=== PATIENT | male | born 1950 | race Caucasian/White ===

== ENCOUNTER 2024-12-18 10:27 | Outpatient (AMB) | payer BC, SELFPAY ==
--- OUTSIDE RECORDS SUMMARY | 2024-12-18 10:48 | XMS_ITS | Encounter Summary ---
Author Organization [facility] Address [address] [place] [address] Phone Care Team Providers Care Procurement Professional Name Role Phone Joe Delaney MD Primary Care Provider [phone] Twan Davis MD Unavailable [phone] Wan Rodríguez Unavailable [phone] Rozina Petersen MD Unavailable Encounter Details Date Type Department Care Team Description 12/17/2019 Email from [facility] Otolaryngology [address] [place] [address] Kyler Gr MD [address] [place], [place] [id number] Social History Tobacco Use Types Packs/Day Years Used Date Smoking Tobacco: Never Smokeless Tobacco: Never Alcohol Use Standard Drinks/Week Comments Not Currently 0 (1 standard drink = 0.6 oz pur e alcohol) social Sex Assigned at Date Recorded Male 03/28/2020 2:09 AM E DT Job Start Date Occupation Industry Not on file Not on file Not on file documented as of this encounter Plan of Treatment Upcoming Encounters Date Type Specialty Care Team Description 01/25/2025 Office Visit Internal Medicine Joe Delaney MD [address] [place], [place] [phone] 02/03/2025 Office Visit Pain Medicine Patricia Sotelo PA [address] [place], [place] [phone] documented as of this encounter Visit Diagnoses Not on filedocumented in this encounter Additional Health Concerns Infection Onset Date Last Indicated Resolved Time COVID-19 Rule Out Comment:04/29/2020 Negative (PAT) 02/20/2020 COVID19 NEGATIVE (PAT) 02/23/2020 02/23/2020 02/23/2020 10:42 AM EDT documented as of this encounter Care Teams Procurement Professional Relationship Specialty Start Date End Date Joe Delaney MD [address] [place] [address] [phone] PCP - General Internal Medicine 11/17/18 [place] [address] [place] [address] Referring Physician Internal Medicine 11/17/18 Wan Rodríguez [facility] Vlad Katz [facility] Urology [place] [id number] 06/02/19 Rozina Petersen MD Gastroenterology 03/30/20 documented as of this encounter
--- OUTSIDE RECORDS SUMMARY | 2024-12-18 10:48 | XMS_ITS | Encounter Summary ---
Author Organization [facility] Address [address] [place] [address] Phone Care Team Providers Care Chef Assistant Name Role Phone Joe Delaney MD Primary Care Provider [phone] Twan Davis MD Unavailable [phone] Wan Rodríguez Unavailable [phone] Rozina Petersen MD Unavailable Encounter Details Date Type Department Care Team Description 11/12/2022 Email from [facility] [address] [place] [phone] Patricia Sotelo PA [address] [place] [address] Social History Tobacco Use Types Packs/Day Years Used Date Smoking Tobacco: Never Smokeless Tobacco: Never Alcohol Use Standard Drinks/Week Comments Not Currently 0 (1 standard drink = 0.6 oz pur e alcohol) social Sex Assigned at Date Recorded Male 03/28/2020 2:09 AM E DT Job Start Date Occupation Industry Not on file Not on file Not on file COVID-19 Exposure Response Date Recorded In the last 10 days, have yo u been in contact with someone who was confirmed or suspected to have Coronavirus/COVID-19? No / Unsure 11/15/2022 10:49 AM EDT documented as of this encounter Plan of Treatment Upcoming Encounters Date Type Specialty Care Team Description 01/25/2025 Office Visit [place] [address] [place] [address] 02/03/2025 Office Visit Pain Medicine Patricia Sotelo PA [address] [place] [address] documented as of this encounter Visit Diagnoses Not on filedocumented in this encounter Care Teams Chef Assistant Relationship Specialty Start Date End Date Joe Delaney MD [address] [place] [address] PCP - General Internal Medicine 11/17/18 Twan Davis MD [address] [place] [address] Referring Physician Internal Medicine 11/17/18 Wan Rodríguez [facility] [place] [address] 06/02/19 Rozina Petersen MD Gastroenterology 03/30/20 documented as of this encounter
--- OUTSIDE RECORDS SUMMARY | 2024-12-18 10:48 | XMS_ITS | Encounter Summary ---
Author Organization [facility] Address [address] [place] [address] Phone Care Team Providers Care Loom Stop Checker Name Role Phone Joe Delaney MD Primary Care Provider [phone] Twan Davis MD Unavailable [phone] Wan Rodríguez Unavailable [phone] Rozina Petersen MD Unavailable Encounter Details Date Type Department Care Team Description 12/10/2019 Orders Only Internal Medicine [address] [place] [phone] Joe Delaney MD [address] [place] [address] [phone] Arthralgia, unspecified joint; Tick bite, sequela Social History Tobacco Use Types Packs/Day Years [...] Office Visit Internal Medicine Joe Delaney MD [address] [place] [address] [phone] 02/03/2025 Office Visit [place] [address] [place] [address] documented as of this encounter Procedures Procedure Name Priority Date/Time Associated Diagnosis Comments LYME DISEASE PCR Routine 12/10/2019 2:13 PM EDT Arthralgia, unspecified joint Tick bite, sequela documented in this encounter Results * Lyme disease, PCR (12/10/2019 2:13 PM EDT) Lyme Disease (B.burgdorferi) PCR Negative Negative [facility] Comment: No B. burgdorferi DNA Detected. A negative PCR result for Borrelia burgdorferi on a blood sample does not eliminate the possibility of Lyme disease. CDC recommends that two-tiered serological testing in conjunction with clinical evaluation be used as the primary method of diagnosis. This test was developed and its performance characteristics determined by [facility]. ??It has not been cleared or approved by the Food and Drug Administration. ??The FDA has determined that such clearance or approval is not necessary. Blood 12/10/2019 2:13 PM EDT 12/10/2019 2:14 PM EDT Narrative [facility] - 12/16/2019 6:12 AM EDT Testing performed at: [BN] [address], [id number], , [employer]:Dawson Galindo MD Joe Delaney MD LAB BLOOD ORDERABLES [facility] documented in this encounter Visit Diagnoses Diagnosis Arthralgia, unspecified joint Tick bite, sequela documented in this encounter Additional Health Concerns Infection Onset Date Last Indicated Resolved Time COVID-19 Rule Out Comment:04/29/2020 Negative (PAT) 02/20/2020 COVID19 NEGATIVE (PAT) 02/23/2020 02/23/2020 02/23/2020 10:42 AM EDT documented as of this encounter Care Teams Loom Stop Checker Relationship Specialty Start Date End Date Joe Delaney MD [address] [place] [address] PCP - General Internal Medicine 4/15/19 Twan Davis MD [address] [place] [address] Referring Physician Internal Medicine 11/17/18 Wan Rodríguez [facility] [place] [address] 06/02/19 Rozina Petersen MD Gastroenterology 03/30/20 documented as of this encounter
--- OUTSIDE RECORDS SUMMARY | 2024-12-18 10:48 | XMS_ITS | Encounter Summary ---
Author Organization [facility] Address [address] [place] [address] Phone Care Team Providers Care Sock Knitting Machine Operator Name Role Phone Joe Delaney MD Primary Care Provider [phone] Twan Davis MD Unavailable [phone] Wan Rodríguez Unavailable Rozina Petersen MD Unavailable Encounter Details Date Type Department Care Team Description 12/21/2019 Email from [facility] Internal Medicine [address] [place] [phone] [place] [address] [place] [address] [phone] Social History Tobacco Use Types Packs/Day Years [...] Visit Internal Medicine Joe Delaney MD [address] [place], [place] [phone] 02/03/2025 Office Visit Pain Medicine Patricia Sotelo PA [address] [place], [place] [phone] documented as of this encounter Visit Diagnoses Not on filedocumented in this encounter Additional Health Concerns Infection Onset Date Last Indicated Resolved Time COVID-19 Rule Out Comment:04/29/2020 Negative (PAT) 02/20/2020 COVID19 NEGATIVE (PAT) 02/23/2020 02/23/2020 02/23/2020 10:42 AM EDT documented as of this encounter Care Teams Sock Knitting Machine Operator Relationship Specialty Start Date End Date Joe Delaney MD [address] [place] [address] PCP - General Internal Medicine 11/17/18 Twan Davis MD [address] [place] [address] Referring Physician Internal Medicine 11/17/18 Wna Rodríguez [facility] Vlad Katz [facility] [place] [address] 06/02/19 Rozina Petersen MD Gastroenterology 03/30/20 documented as of this encounter
--- OUTSIDE RECORDS SUMMARY | 2024-12-18 10:48 | XMS_ITS | Encounter Summary ---
Author Organization [facility] Address [address] [place] [address] Phone Care Team Providers Care Manager Of Radiology Name Role Phone Joe Delaney MD Primary Care Provider [phone] Twan Davis MD Unavailable [phone] Wan Rodríguez Unavailable [phone] Rozina Petersen MD Unavailable Encounter Details Date Type Department Care Team Description 11/28/2022 Email from [facility] [address] [place] [phone] Kimberly Herndon PA [address] [place] [address] Social History Tobacco Use Types Packs/Day [...] suspected to have Coronavirus/COVID-19? No / Unsure 11/30/2022 12:00 PM EDT documented as of this encounter Plan of Treatment Upcoming Encounters Date Type Specialty Care Team Description 01/25/2025 Office Visit Internal Medicine Joe Delaney MD [address] [place] [address] 02/03/2025 Office Visit Pain Medicine Patricia Sotelo PA [address] [place], [place] [phone] documented as of this encounter Visit Diagnoses Not on filedocumented in this encounter Care Teams Manager Of Radiology Relationship Specialty Start Date End Date Joe Delaney MD [address] [place] [address] PCP - General Internal Medicine 11/17/18 Twan Davis MD [address] [place] [address] Referring Physician Internal Medicine 11/17/18 Wan Rodríguez [facility] [place] [address] 06/02/19 Rozina Petersen MD Gastroenterology 03/30/20 documented as of this encounter
--- OUTSIDE RECORDS SUMMARY | 2024-12-18 10:48 | XMS_ITS | Encounter Summary ---
Author Organization [facility] Address [address] [place] [address] Phone Care Team Providers Care Geospatial Imagery Intelligence Analyst Name Role Phone Joe Delaney MD Primary Care Provider [phone] Twan Davis MD Unavailable [phone] Wan Rodríguez Unavailable Rozina Petersen MD Unavailable Encounter Details Date Type Department Care Team Description 12/15/2019 Email from [facility] Internal Medicine [address] [place] [phone] [place] [address] [place] [address] [phone] Social History Tobacco Use Types Packs/Day Years [...] Visit Internal Medicine Joe Delaney MD [address] [place], [place] [phone] 02/03/2025 Office Visit Pain Medicine Patricia Sotelo PA [address] [place], [place] [phone] documented as of this encounter Visit Diagnoses Not on filedocumented in this encounter Additional Health Concerns Infection Onset Date Last Indicated Resolved Time COVID-19 Rule Out Comment:04/29/2020 Negative (PAT) 02/20/2020 COVID19 NEGATIVE (PAT) 02/23/2020 02/23/2020 02/23/2020 10:42 AM EDT documented as of this encounter Care Teams Geospatial Imagery Intelligence Analyst Relationship Specialty Start Date End Date Joe Delaney MD [address] [place] [address] PCP - General Internal Medicine 11/17/18 Twan Davis MD [address] [place] [address] Referring Physician Internal Medicine 11/17/18 Wan Rodríguez [facility] Vlad Katz [facility] [place] [address] 06/02/19 Rozina Petersen MD Gastroenterology 03/30/20 documented as of this encounter
--- OUTSIDE RECORDS SUMMARY | 2024-12-18 10:48 | XMS_ITS | Encounter Summary ---
Author Organization [facility] Address [address] [place] [address] Phone Care Team Providers Care Direct Support Professional Caregiver Name Role Phone Joe Delaney MD Primary Care Provider [phone] Twan Davis MD Unavailable [phone] Wan Rodríguez Unavailable [phone] Rozina Petersen MD Unavailable Encounter Details Date Type Department Care Team Description 01/06/2020 Orders Only Hematology/Oncology [address] [place] [address] Param Scott Ud, MD [address] [place] [address] Lymphadenopathy, axillary Social History Tobacco Use Types Packs/Day Years [...] Visit Internal Medicine Joe Delaney MD [address] [place] [address] 02/03/2025 Office Visit Pain Medicine Patricia Sotelo PA [address] [place] [address] documented as of this encounter Procedures Procedure Name Priority Date/Time Associated Diagnosis Comments IMMUNOFIXATION SERUM Routine 01/06/2020 4:32 PM EDT Lymphadenopathy, axillary IMMUNOGLOBULIN FREE LT CHAINS BLOOD Routine 01/06/2020 4:32 PM EDT Lymphadenopathy, axillary SEDIMENTATION RATE Routine 01/06/2020 4: 32 PM EDT Lymphadenopathy, axillary CBC STAT 01/06/2020 4:32 PM EDT Lymphadenopathy, axillary C-REACTIVE PROTEIN Routine 01/06/2020 4: 32 PM EDT Lymphadenopathy, axillary LACTATE DEHYDROGENASE Routine 01/06/2020 4:32 PM EDT Lymphadenopathy, axillary documented in this encounter Results * CBC (01/06/2020 4:32 PM EDT) WBC 6.8 4.8 - 10.8 10*3/mm3 [facility] RBC 5.3 4.7 - 6.1 10*6/mm3 [facility] Hemoglobin 15.6 14.0 - 18.0 g/dL [facility] Hematocrit 44.4 42.0 - 52.0 % [facility] MCV 84.30 80.00 - 94.00 fL [facility] MCH 29.6 26.0 - 34.0 pg [facility] MCHC 35.1 32.0 - 36.0 G/DL [facility] RDW 13.2 9.1 - 17.5 % [facility] Platelets 286 130 - 400 10*3/mm3 [facility] MPV 9.8 6.4 - 13.3 fL [facility] Neutrophils Absolute 3.92 1.60 - 6.70 10*3/mm3 [facility] Neutrophils % 57.50 43.10 - 76.10 % [facility] Lymphocytes Absolute 2.16 0.80 - 3.00 10*3/mm3 [facility] Lymphocytes Relative 31.70 12.90 - 43.90 % [facility] Monocytes Absolute 0.61 0.40 - 0.80 10*3/mm3 [facility] Monocytes Relative 8.90 4.90 - 12.50 % [facility] Eosinophils Man 0.12 0.00 - 0.50 10*3/mm3 [facility] Eosinophils Relative 1.80 0.00 - 5.00 % [facility] Basophils Absolute 0.01 0.00 - 1.00 10*3/mm3 [facility] Basophils Relative 0.10 0.00 - 2.00 % [facility] Blood 01/06/2020 4:32 PM EDT 01/06/2020 4:32 PM EDT Param Scott MD LAB BLOOD ORDERABLES FREQUENCY Performing Organization Address City/[facility]/ZIP Co de Phone Number [facility] DIAZ [address] [facility] [place], [place] [phone] * Immunofixation Serum (01/06/2020 4:32 PM EDT) Pathologist [facility] Immunofixation Result, Serum SEE COMMENT [facility] Comment:No Monoclonal Parapr oteins identified on Immunofixation Electrophoresis Blood 01/06/2020 4:32 PM EDT 01/06/2020 4:32 PM EDT Param Scott MD LAB BLOOD ORDERABLES Performing Organization Address [facility] Co de Phone Number [facility] JOE [address] [facility] [place], [place] [phone] * [place] lambda free light chains (01/06/2020 4:32 PM EDT) Ig [place] Free Light Chain 11.4 3.3 - 19.4 mg/L [facility] Ig [place]ambda Free Light Chain 9.9 5.7 - 26.3 mg/L [facility] [place]/Lambda Ratio,S 1.15 0.26 - 1.65 [facility] Blood 01/06/2020 4:32 PM EDT 01/06/2020 4:32 PM EDT Narrative [facility] - 01/07/2020 4:14 PM EDT Testing performed at: [RN] [facility] [address],[phone], , [employer]: Lynn Dukes MD Param Scott MD LAB BLOOD ORDERABLES Performing Organization Address [facility] Co de Phone Number [facility] * Lactate dehydrogenase (01/06/2020 4:32 PM EDT) LD 141 140 - 271 IU/L [facility] Blood 01/06/2020 4:32 PM EDT 01/06/2020 4:32 PM EDT Param Scott MD LAB BLOOD ORDERABLES Performing Organization Address [facility] Co nh Phone Number [facility] [address] [facility] [place], [place] [phone] * Sedimentation rate, erythrocyte (01/06/2020 4:32 PM EDT) Pathologist [facility] Sed Rate 2 0 - 9 mm/hr [facility] Blood 01/06/2020 4:32 PM EDT 01/06/2020 4:32 PM EDT Param Scott MD LAB BLOOD ORDERABLES Performing Organization Address [facility] Co de Phone Number [facility] [address] [facility] [place], [place] [phone] * C-reactive protein (01/06/2020 4:32 PM EDT) CRP 0.30 0.10 - 0.90 mg/dL [facility] Blood 01/06/2020 4:32 PM EDT 01/06/2020 4:32 PM EDT Param Scott MD LAB BLOOD ORDERABLES Performing Organization Address [facility] Co de Phone Number [facility] [address] [facility] [place], [place] [phone] documented in this encounter Visit Diagnoses Diagnosis Lymphadenopathy, axillary documented in this encounter Additional Health Concerns Infection Onset Date Last Indicated Resolved Time COVID-19 Rule Out Comment:04/29/2020 Negative (PAT) 02/20/2020 COVID19 NEGATIVE (PAT) 02/23/2020 02/23/2020 02/23/2020 10:42 AM EDT documented as of this encounter Care Teams Direct Support Professional Caregiver Relationship Specialty Start Date End Date Joe Delaney MD [address] [place] [address] PCP - General Internal Medicine 11/17/18 [place] [address] [place] [address] Referring Physician Internal Medicine 11/17/18 Wan Rodríguez [facility] [place] [address] 06/02/19 Rozina Petersen MD Gastroenterology 03/30/20 documented as of this encounter
--- OUTSIDE RECORDS SUMMARY | 2024-12-18 10:48 | XMS_ITS | Encounter Summary ---
Author Organization [facility] Address [address] [place] [address] Phone Care Team Providers Care Fx Artist Name Role Phone Joe Delaney MD Primary Care Provider [phone] Twan Davis MD Unavailable [phone] Wan Rodríguez Unavailable [phone] Rozina Petersen MD Unavailable Encounter Details Date Type Department Care Team Description 12/14/2019 Email from [facility] Otolaryngology [address] [place] [address] Kyler Gr MD [address] [place], [place] [phone] Social History Tobacco Use Types Packs/Day Years [...] Visit Internal Medicine Joe Delaney MD [address] [place], [place] [phone] 02/03/2025 Office Visit Pain Medicine Patricia Sotelo PA [address] [place], [place] [phone] documented as of this encounter Visit Diagnoses Not on filedocumented in this encounter Additional Health Concerns Infection Onset Date Last Indicated Resolved Time COVID-19 Rule Out Comment:04/29/2020 Negative (PAT) 02/20/2020 COVID19 NEGATIVE (PAT) 02/23/2020 02/23/2020 02/23/2020 10:42 AM EDT documented as of this encounter Care Teams Fx Artist Relationship Specialty Start Date End Date Joe Delaney MD [address] [place] [address] [phone] PCP - General Internal Medicine 11/17/18 [place] [address] [place] [address] Referring Physician Internal Medicine 11/17/18 Wan Rodríguez [facility] Vlad Katz [facility] Urology [place] [phone] 06/02/19 Rozina Petersen MD Gastroenterology 03/30/20 documented as of this encounter
--- OUTSIDE RECORDS SUMMARY | 2024-12-18 10:48 | XMS_ITS | Encounter Summary ---
Author Organization [facility] Address [address] [place] [address] Phone Care Team Providers Care End Finder Twisting Department Name Role Phone Joe Delaney MD Primary Care Provider [phone] Twan Davis MD Unavailable [phone] Wan Rodríguez Unavailable Rozina Petersen MD Unavailable Encounter Details Date Type Department Care Team Description 01/25/2020 Email from [facility] Internal Medicine [address] [place] [phone] [place] [address] [place] [address] [phone] Social History Tobacco Use Types Packs/Day Years [...] Visit Internal Medicine Joe Delaney MD [address] [place], [place] [phone] 02/03/2025 Office Visit Pain Medicine Patricia Sotelo PA [address] [place], [place] [phone] documented as of this encounter Visit Diagnoses Not on filedocumented in this encounter Additional Health Concerns Infection Onset Date Last Indicated Resolved Time COVID-19 Rule Out Comment:04/29/2020 Negative (PAT) 02/20/2020 COVID19 NEGATIVE (PAT) 02/23/2020 02/23/2020 02/23/2020 10:42 AM EDT documented as of this encounter Care Teams End Finder Twisting Department Relationship Specialty Start Date End Date Joe Delaney MD [address] [place] [address] PCP - General Internal Medicine 11/17/18 Twan Davis MD [address] [place] [address] Referring Physician Internal Medicine 11/17/18 Wan Rodríguez [facility] Vlad Katz [facility] [place] [address] 06/02/19 Rozina Petersen MD Gastroenterology 03/30/20 documented as of this encounter
--- OUTSIDE RECORDS SUMMARY | 2024-12-18 10:48 | XMS_ITS | Encounter Summary ---
Author Organization [facility] Address [address] [place] [address] Phone Care Team Providers Care Women Designer Name Role Phone Joe Delaney MD Primary Care Provider [phone] Twan Davis MD Unavailable [phone] Wan Rodríguez Unavailable [phone] Rozina Petersen MD Unavailable Encounter Details Date Type Department Care Team Description 11/19/2022 Email from [employer] Internal Medicine [address] [place] [phone] Joe Delaney MD [address] [place] [address] Social History Tobacco Use Types Packs/Day [...] suspected to have Coronavirus/COVID-19? No / Unsure 11/22/2022 9:30 AM EDT documented as of this encounter Plan of Treatment Upcoming Encounters Date Type Specialty Care Team Description 01/25/2025 Office Visit Internal Medicine Joe Delaney MD [address] [place] [address] 02/03/2025 Office Visit Pain Medicine Patricia Sotelo PA [address] [place], [place] [phone] documented as of this encounter Visit Diagnoses Not on filedocumented in this encounter Care Teams Women Designer Relationship Specialty Start Date End Date Joe Delaney MD [address] [place] [address] PCP - General Internal Medicine 11/17/18 [place] [address] [place] [address] Referring Physician Internal Medicine 11/17/18 Wan Rodríguez [facility] [place] [address] 06/02/19 Rozina Petersen MD Gastroenterology 03/30/20 documented as of this encounter
--- OUTSIDE RECORDS SUMMARY | 2024-12-18 10:48 | XMS_ITS | Encounter Summary ---
Author Organization [facility] Address [address] [place] [address] Phone Care Team Providers Care Inspector Glass Or Mirror Name Role Phone Joe Delaney MD Primary Care Provider [phone] Twan Davis MD Unavailable [phone] Wan Rodríguez Unavailable Rozina Petersen MD Unavailable Encounter Details Date Type Department Care Team Description 01/19/2020 Email from [facility] Orthopedics [address] [place] [phone] Kimberly Herndon PA [address] [place] [address] [phone] Social History Tobacco Use Types Packs/Day Years [...] Visit Internal Medicine Joe Delaney MD [address] [place], [place] [phone] 02/03/2025 Office Visit Pain Medicine Patricia Sotelo PA [address] [place], [place] [phone] documented as of this encounter Visit Diagnoses Not on filedocumented in this encounter Additional Health Concerns Infection Onset Date Last Indicated Resolved Time COVID-19 Rule Out Comment:04/29/2020 Negative (PAT) 02/20/2020 COVID19 NEGATIVE (PAT) 02/23/2020 02/23/2020 02/23/2020 10:42 AM EDT documented as of this encounter Care Teams Inspector Glass Or Mirror Relationship Specialty Start Date End Date Joe Delaney MD [address] [place] [address] PCP - General Internal Medicine 11/17/18 [place] [address] [place] [address] Referring Physician Internal Medicine 11/17/18 Wan Rodríguez [facility] Vlad Katz [facility] [place] [address] 06/02/19 Rozina Petersen MD Gastroenterology 03/30/20 documented as of this encounter
--- OUTSIDE RECORDS SUMMARY | 2024-12-18 10:48 | XMS_ITS | Encounter Summary ---
Author Organization [facility] Address [address] [place] [address] Phone Care Team Providers Care Electronic Lab Technician Name Role Phone Joe Delaney MD Primary Care Provider Twan Davis MD Unavailable [phone] Wan Rodríguez Unavailable [phone] Rozina Petersen MD Unavailable Encounter Details Date Type Department Care Team Description 12/09/2019 Email from [facility] Internal Medicine [address] [place] [phone] [place] [address] [place] [address] [phone] Social History Tobacco Use Types Packs/Day Years [...] Visit Internal Medicine Joe Delaney MD [address] [place], [place] [phone] 02/03/2025 Office Visit Pain Medicine Patricia Sotelo PA [address] [place], [place] [phone] documented as of this encounter Visit Diagnoses Not on filedocumented in this encounter Additional Health Concerns Infection Onset Date Last Indicated Resolved Time COVID-19 Rule Out Comment:04/29/2020 Negative (PAT) 02/20/2020 COVID19 NEGATIVE (PAT) 02/23/2020 02/23/2020 02/23/2020 10:42 AM EDT documented as of this encounter Care Teams Electronic Lab Technician Relationship Specialty Start Date End Date Joe Delaney MD [address] [place] [address] PCP - General Internal Medicine 11/17/18 Twan Davis MD [address] [place] [address] Referring Physician Internal Medicine 11/17/18 Wan Rodríguez [facility] Vlad Katz [facility] [place] [address] 06/02/19 Rozina Petersen MD Gastroenterology 03/30/20 documented as of this encounter
--- OUTSIDE RECORDS SUMMARY | 2024-12-18 10:48 | XMS_ITS | Encounter Summary ---
Author Organization [facility] Address [address] [place] [address] Phone Care Team Providers Care Development Mgr Name Role Phone Joe Delaney MD Primary Care Provider [phone] Twan Davis MD Unavailable [phone] Wan Rodríguez Unavailable Rozina Petersen MD Unavailable Encounter Details Date Type Department Care Team Description 12/11/2019 Orders Only Endocrinology [address] [place] [address] Jayjay Allred MD [address] [place], [place] [phone] Goiter diffuse, adenomatous; Multiple thyroid nodules Social History Tobacco Use Types Packs/Day Years [...] Visit Internal Medicine Joe Delaney MD [address] [place] [address] 02/03/2025 Office Visit Pain Medicine Patricia Sotelo PA [address] [place] [address] documented as of this encounter Procedures Procedure Name Priority Date/Time Associated Diagnosis Comments TSH Routine 12/11/2019 9:29 AM EDT Goiter diffuse, adenomatous Multiple thyroid nodules T4, FREE Routine 12/11/2019 9:29 AM EDT Goiter diffuse, adenomatous Multiple thyroid nodules documented in this encounter Results * T4, free (12/11/2019 9:29 AM EDT) Free T4 1.02 0.75 - 1.54 ng/dL [facility] Blood 12/11/2019 9:29 AM EDT 12/11/2019 9:40 AM EDT Jayjayluis fernando Allred MD LAB BLOOD ORDERABLES Performing Organization Address [facility] de Phone Number [address] [phone] * TSH (12/11/2019 9:29 AM EDT) TSH 2.12 0.50 - 6.00 uIU/mL [facility] Blood 12/11/2019 9:29 AM EDT 12/11/2019 9:40 AM EDT Jayjayluis fernando Allred MD LAB BLOOD ORDERABLES Performing Organization Address [facility] Co de Phone Number [address] [place], [place] [phone] documented in this encounter Visit Diagnoses Diagnosis Goiter diffuse, adenomatous Unspecified nontoxic nodular goiter Multiple thyroid nodules Nontoxic multinodular goiter documented in this encounter Additional Health Concerns Infection Onset Date Last Indicated Resolved Time COVID-19 Rule Out Comment:04/29/2020 Negative (PAT) 02/20/2020 COVID19 NEGATIVE (PAT) 02/23/2020 02/23/2020 02/23/2020 10:42 AM EDT documented as of this encounter Care Teams Development Mgr Relationship Specialty Start Date End Date Joe Delaney MD [address] [place] [address] PCP - General Internal Medicine 11/17/18 Twan Davis MD [address] [place], [place] [phone] Referring Physician Internal Medicine 11/17/18 Wan Rod[facility]uez [facility] [place] [phone] 06/02/19 Rozina Petersen MD Gastroenterology 03/30/20 documented as of this encounter
--- OUTSIDE RECORDS SUMMARY | 2024-12-18 10:49 | XMS_ITS | Encounter Summary ---
Author Organization [facility] Address [address] [place] [address] Phone Care Team Providers Care Classified Advertising Supervisor Name Role Phone Joe Delaney MD Primary Care Provider [phone] Twan Davis MD Unavailable [phone] Wan Rodríguez Unavailable [phone] Rozina Petersen MD Unavailable Encounter Details Date Type Department Care Team Description 06/19/2016 Conversion Internal Medicine [address] [place] [phone] Joe Delaney MD [address] [place] [address] Social History Tobacco Use Types Packs/Day Years Used Date Smoking Tobacco: Never Assessed Sex Assigned at Date Recorded Male 03/28/2020 2:09 AM E DT Job Start Date Occupation Industry Not on file Not on file Not on file documented as of this encounter Progress Notes * Joe Delaney MD - 06/19/2016 3:16 AM EST History of Present Illness Reason for visit: routine follow-up Chief Complaint: Med questions, chronic Comments: Has been to several Doc's. A Fib Rx changed to Flecainide plus prn Propranolol 10 mg for sx. Takes the former regularly but hasn't used Propranolol. Dr Valerio Rxed Paxil but pt read it interacts with other meds and didn't take it. Dr Valerio also thought he more likely had an aura than a TIA, but of course cannot exclude a TIA. 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 Gerd sx are improved with change in meds. Finally, thyroid nodules were discovered incidentally on a scan. Finally, c/o pain in R Groin and upper thigh, comes and goes but worse of late. Hurts to push down.Today hemorrhoids bleeding a lot. Past Medical History: Htn. Elev PSA. . Back Pain. A-fib. . Gerd. Allergic rhinitis. BPH. Past Surgical History: Tonsillectomy, childhood; . [place] teeth extracted;. Dental implants. . Prost bx. Social History: Marital Status: . . Number of Children: 3. Place of : [place];. 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 Sleep History: 6-8 hrs;.Travel History: [place];. Tobacco use: never smoker. Alcohol use:yes. Alcohol use Frequency:social.Drug use:never. Caffeine use (drinks/day): 3. Exercise (times/week): 3. Seatbelt use (%): 100. 2 cats (for 2 years), a dog. . Free T-4 on 08/09/2012 was 0.93. TSH on 11/07/2015 was 1.59. IMPRESSION: 1. COMMON CAROTID, CAROTID BIFURCATION, AND INTERNAL CAROTID BILATERALLY ARE UNREMARKABLE WITH NO EVIDENCE OF STENOSIS AT EITHER CAROTID BIFURCATION. 2. 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 3. THERE IS NO EVIDENCE OF INTRACRANIAL VESSEL OCCLUSION. 4. THERE ARE MULTIPLE RIGHT THYROID COMPLEX NODULES FOR WHICH SONOGRAPHIC EVALUATION IS SUGGESTED. Report edited for Elder Al MD 12/28/2015 10:00 AM Medications: (prior to this visit) - verified by patient or patient energy conservation representative LOSARTAN POTASSIUM 100 MG TABS (LOSARTAN POTASSIUM) one po qd XARELTO 20 MG TABS (RIVAROXABAN) one po qd DILTIAZEM HCL 30 MG TABS (DILTIAZEM HCL) one po bid DEXILANT 60 MG CPDR (DEXLANSOPRAZOLE) one po qd PEPCID AC 10 MG TABS (FAMOTIDINE) one po bid OMEPRAZOLE 20 MG TBEC (OMEPRAZOLE) 1 tab po bid before breakfast and dinner PAXIL 10 MG TAB (PAROXETINE HCL) 1 tab po q am Allergies: PCN (Moderate) AMLODIPINE BESYLATE (AMLODIPINE BESYLATE) (Moderate) PENICILLIN (Moderate) Vital Signs Entering Staff: eCcy Whitten MA June 19, 2016 3:16 PM Entered weight: 223 lb. Calculated weight: 223 lb. (101.36kg.) Height: 74in.(187.96cm.) Blood Pressure: 128/70 Pulse Rate: 64 Pulse rhythm: regular Expanded BP Assessment Right arm BP: 120/70 mm Hg Apical Pulse Rate: 64 O2 Sat: 98% on Room Air - At Rest Body Mass Index in-lb BMI (in-lb)28.73 Physical Exam General Appearance: well nourished, well hydrated Skin: warm and dry, no rash Head: normocephalic Neck: supple, no significant enlarged lymph nodes, no neck masses, thyroid normal palpation Respiratory: clear to auscultation, no rales, no rhonchi, no evidence of consolidation, no wheezes Cardiovascular: NL S1/S2, no murmurs, no S3/S4 or gallop rhythm, no edema, no calf tenderness Cardiovascular Comments: reg Gastrointestinal (Abdomen): abdomen soft w/o masses, non-distended/non-tender, normal bowel sounds Abdomen comments: ext and int hemorrrhoids, clean, no blood, no stool Genitourinary (male): testes descended bilaterally, no palpable mass, nl external male genitalia, nl penile exam Abnormal Genitourinary (male): prostate enlarged Male comments: large firm prost Musculoskeletal Exam: Gait and station: normal Digits and nails: normal Right Lower Extremity Exam: leg no asymmetry, no deformity, no discoloration, no ecchymosis, full rom, no atrophy Left Lower Extremity Exam: leg no asymmetry, no deformity, no discoloration, no ecchymosis, full rom, no atrophy Lymphatic: Neck: no enlarged lymph nodes, no tenderness Groin: no enlarged lymph nodes, no tenderness Neurologic: DTR symmetric Psychiatric: Judgment, insight intact, orientated to time/place/person Preventive Care/Screening EKG: complete (12/27/2015) Colonoscopy: complete (11/11/2012) BMI: 28.73 (06/19/2016) Blood Pressure: 128/70 (06/19/2016) Tobacco use: never smoker (06/07/2016) Alcohol use: yes (06/07/2016) Drug use: never (06/07/2016) CHOLESTEROL: 158 (05/09/2015) HDL: 36 (05/09/2015) LDL: 98 (05/09/2015) TRIGLYCERIDE: 120(05/09/2015) PSA: 8.96 (05/10/2016) PNEUMOCOCCAL: refused (07/18/2012) FLU VAX: 05/08/2016 Assessment Problems: Assessed ANXIETY as unchanged - Joe Delaney MD - Signed Assessed AURAS as improved - Joe Delaney MD - Signed Assessed DYSPNEA as improved - Joe Delaney MD - Signed Assessed CHEST DISCOMFORT as improved - Joe Delaney MD - Signed Assessed ATRIAL FIBRILLATION, PAROXYSMAL as improved - Joe Delaney MD - Signed Assessed TIA as improved - Joe Delaney MD - Signed Assessed THYROID NODULE as new - Joe Delaney MD Assessed KEY'S ESOPHAGUS as improved - Joe Delaney MD Assessed ATRIAL FIBRILLATION as improved - Joe Delaney MD Assessed GERD as improved - Joe Delaney MD Assessed HEMORRHOIDS as unchanged - Joe Delaney MD HEMORRHOIDS (ICD-455.6) (EXA86-C52.9) KEY'S ESOPHAGUS (ICD-530.85) (GJY51-U18.70) THYROID NODULE (ICD-241.0) (OPG45-P52.1) Plan Medications (added/changed): DILTIAZEM HCL 30 MG TABS (DILTIAZEM HCL) one po bid FAMOTIDINE 40 MG TABS (FAMOTIDINE) one po bid OMEPRAZOLE 40 MG CPDR (OMEPRAZOLE) one po bid FLECAINIDE ACETATE 50 MG TABS (FLECAINIDE ACETATE) 1.5 tabs po bid ANUSOL-HC 2.5 % CREA (HYDROCORTISONE) apply litely to hemorrhoids after warm sitz bath qd PROPRANOLOL HCL 10 MG TABS (PROPRANOLOL HCL) one po prn for A Fib. Medications (removed): DEXILANT 60 MG CPDR (DEXLANSOPRAZOLE) one po qd - Other Medications (added/changed): DILTIAZEM HCL 30 MG TABS (DILTIAZEM HCL) one po bid FAMOTIDINE 40 MG TABS (FAMOTIDINE) one po bid OMEPRAZOLE 40 MG CPDR (OMEPRAZOLE) one po bid FLECAINIDE ACETATE 50 MG TABS (FLECAINIDE ACETATE) 1.5 tabs po bid ANUSOL-HC 2.5 % CREA (HYDROCORTISONE) apply litely to hemorrhoids after warm sitz bath qd PROPRANOLOL HCL 10 MG TABS(PROPRANOLOL HCL) one po prn for A Fib. Medications (removed): DEXILANT 60 MG CPDR (DEXLANSOPRAZOLE) one po qd - Other Comments: Order US of thyroid. Anusol cr Continue regimen. Tylenol for groin pain. Avoid Aleve, Advil. New Orders: SNOMED-CT: [id number] Patient Encounter for Meaningful Use [[id number]] Thyroid Ultrasound [USTHYRD] Prescriptions: ANUSOL-HC 2.5 % CREA (HYDROCORTISONE) apply litely to hemorrhoids after warm sitz bath qd #1[Unspecified] x 1 Entered and Authorized by: Joe Delaney MD Signed by: Joe Delaney MD on 06/19/2016 Method used: Electronically to [facility] [phone]* (retail) [address] [place] [address] Ph: [phone] or [phone] Fax: [phone] RxID: [id number] Injections Medication List Reviewed Schedule US for 06/26/16 at 3:30pm order given to patient end of visit summary handed to patient. Cecy Whitten MA June 19, 2016 3:51 PM ] Please note, this documentation has been converted into the [employer] EHR from our [facility]MR forinformational purposes only. This documentation must not be released or used for legal purposes as the note is missing the responsible provider???s signature. A copy of the legal medical record can be obtained or printed only from the [facility]. documented in this encounter Plan of Treatment Upcoming Encounters Date Type Specialty Care Team Description 01/25/2025 Office Visit Internal Medicine Joe Delaney MD [address] [place] [address] 02/03/2025 Office Visit Pain Medicine Patricia Sotelo PA [address] [place] [address] documented as of this encounter Visit Diagnoses Not on filedocumented in this encounter Additional Health Concerns Infection Onset Date Last Indicated Resolved Time COVID-19 Rule Out Comment:04/29/2020 Negative (PAT) 02/20/2020 COVID19 NEGATIVE (PAT) 02/23/2020 02/23/2020 02/23/2020 10:42 AM EDT documented as of this encounter Care Teams Classified Advertising Supervisor Relationship Specialty Start Date End Date Joe Delaney MD [address] [place], [place] [phone] PCP - General Internal Medicine 11/17/18 [place] [address] [place] [address] Referring Physician Internal Medicine 11/17/18 Wan Rodríguez [facility] Gianna [facility] [place] [address] 06/02/19 Rozina Petersen MD Gastroenterology 03/30/20 documented as of this encounter
--- OUTSIDE RECORDS SUMMARY | 2024-12-18 10:49 | XMS_ITS | Encounter Summary ---
Author Organization [facility] Address [address] [place] [address] Phone Care Team Providers Care Stockholder Name Role Phone Joe Delaney MD Primary Care Provider [phone] Twan Davis MD Unavailable [phone] Wan Rodríguez Unavailable Rozina Petersen MD Unavailable Encounter Details Date Type Department Care Team Description 11/25/[address] [facility] Internal Medicine [address] [place] [phone] [place] [address] [place] [address] [phone] Social History Tobacco Use Types Packs/Day Years [...] Visit Internal Medicine Joe Delaney MD [address] [place], [place] [phone] 02/03/2025 Office Visit Pain Medicine Patricia Sotelo PA [address] [place], [place] [phone] documented as of this encounter Visit Diagnoses Not on filedocumented in this encounter Additional Health Concerns Infection Onset Date Last Indicated Resolved Time COVID-19 Rule Out Comment:04/29/2020 Negative (PAT) 02/20/2020 COVID19 NEGATIVE (PAT) 02/23/2020 02/23/2020 02/23/2020 10:42 AM EDT documented as of this encounter Care Teams Stockholder Relationship Specialty Start Date End Date Joe Delaney MD [address] [place] [address] PCP - General Internal Medicine 11/17/18 Twan Davis MD [address] [place] [address] Referring Physician Internal Medicine 11/17/18 Wan Rodríguez [facility] Vlad Katz [facility] [place] [address] 06/02/19 Rozina Petersen MD Gastroenterology 03/30/20 documented as of this encounter
--- OUTSIDE RECORDS SUMMARY | 2024-12-18 10:49 | XMS_ITS | Clinical Summary ---
Author Organization [facility] Address [address] [place] [address] Care Team Providers Care Hotel Concierge Name Role Phone Joe Delaney MD Primary Care Provider [phone] Surgical History Surgery Date Site/Laterality Comments TONSILLECTOMY PROCEDURE: TONSILLECTOMY; COMMENT: childhood HEMORRHOID SURGERY PROCEDURE: HEMORRHOID SURGERY [facility] 02/25/2020 PROCEDURE: ENDO REFLUX TESTING; COMMENT: Procedure: ESOPHAGOSCOPY WITH PH MONITORING CAPSULE INSERTION AND BIOPSY; Surgeon: Rozina Petersen MD;; Medical History Medical History Date Comments Essential hypertension 11/16/2018 DX: Essen tial hypertension Benign prostatic hyperplasia without lower urinary tract symptoms 11/16/2018 DX: Benign prostatic hype rplasia without lower urinary tract symptoms Elevated PSA, less than 10 ng/ml 11/16/2018 DX: Elevated PSA, less than 10 ng/ml GERD without esophagitis 11/16/2018 DX: GATITO D without esophagitis Paroxysmal atrial fibrillati on (CMS/HCC V24, CMS/HCC V28) 02/22/2016 DX: Paroxysmal atrial fibri llation History of dizziness 01/20/2020 DX: History of dizziness Family History Medical History Relation Name Comments No Known Problems Brother No Known Problems Daughter 1 No Known Problems Daughter 2 No Known Problems Sister No Known Problems Son Relation Name Status Comments Brother Alive Daughter 1 Alive Daughter 2 Alive Father (Age 83) Mother (Age 87) Sister Alive Son Alive Social History Tobacco Use Types Packs/Day Years Used Date Smoking Tobacco: Never Smokeless Tobacco: Never Alcohol Use Standard Drinks/Week Comments Not Currently 0 (1 standard drink = 0.6 oz pur e alcohol) Sex and Gender Information Value Date Recorded Sex Assigned at Not on file Legal Sex Male 4:15 AM EST Gender Identity Not on file Sexual Orientation Not on file Obstetrics History Last Filed Vital Signs Vital Sign Reading Time Taken Comments Blood Pressure 120/72 05/29/2022 9:24 AM EDT Sitting Left upper arm Pulse 64 05/29/2022 9:24 AM EDT Temperature - - Respiratory Rate - - Oxygen Saturation - - Inhaled Oxygen Concentration - - Weight 101 kg (222 lb) 05/29/2022 9:02 AM EDT Height 188 cm (6' 2.02 ) 11/24/2021 9:0 5 AM EDT Body Mass Index 28.49 11/24/2021 9:05 AM EDT Plan of Treatment Health Maintenance Due Date Last Done Comments Zoster Vaccines (1 of 2) 2002 Abdominal Aortic Aneurysm (AAA) Screen 07/17/2022 Colorectal Cancer Screening: Colonoscopy 07/17/2022 Depression Screening 07/17/2022 Falls Risk Assessment 07/17/2022 Hepatitis C Screening 07/17/2022 Social Influencers of Health Screening 07/17/2022 Hypertension/CHF/CAD Annual BMP Blood Test 11/15/2022 11/15/2021, 08/17/2020, 10/06/2019, Additional history exists COVID-19 Vaccine ( - season) 2024 10/15/2020, 09/24/2020 Influenza Vaccine (Season Ended) 2025 04/27/2021 Cholesterol Screening (Lipid Panel) 11/15/2026 11/15/2021, 05/05/2019 DTaP,Tdap,and Td Vaccines (2 - Td or Tdap) 02/19/2027 02/19/2017 RSV Immunization Adult Patients (1 - 1-dose 75+ series) 2027 Pneumococcal Vaccine: 50+ Years Completed 06/02/2019, 05/20/2018 HIB Vaccines Aged Out No longer eligi ble based on patient's age to complete this topic HPV Vaccines Aged Out No longer eligi ble based on patient's age to complete this topic Hepatitis A Vaccines Aged Out No long er eligible based on patient's age to complete this topic Hepatitis B Vaccines Aged Out No long er eligible based on patient's age to complete this topic IPV Vaccines Aged Out No longer eligi ble based on patient's age to complete this topic MMR Vaccines Aged Out No longer eligi ble based on patient's age to complete this topic Meningococcal ACWY Vaccine Aged Out N o longer eligible based on patient's age to complete this topic Meningococcal B Vaccine Aged Out No l onger eligible based on patient's age to complete this topic RSV Immunization Patients Under 20 months Aged Out No longer eligible based on patient's age to complete this topic Varicella Vaccines Aged Out No longer eligible based on patient's age to complete this topic Care Teams Hotel Concierge Relationship Specialty Start Date End Date Joe Delaney MD [address] [place] [address] PCP - General Internal Medicine 11/17/18
--- OUTSIDE RECORDS SUMMARY | 2024-12-18 10:49 | XMS_ITS | Encounter Summary ---
Author Organization [facility] Address [address] [place] [address] Phone Care Team Providers Care Auto Body Repair Estimator Name Role Phone Joe Delaney MD Primary Care Provider [phone] Twan Davis MD Unavailable [phone] Wan Rodríguez Unavailable [phone] Rozina Petersen MD Unavailable Encounter Details Date Type Department Care Team Description 09/17/2024 Email from [facility] Internal Medicine [address] [place] [phone] Joe Delaney MD [address] [place] [address] Social History Tobacco Use Types Packs/Day [...] suspected to have Coronavirus/COVID-19? No / Unsure 09/01/2024 2:24 PM EST documented as of this encounter Plan of Treatment Upcoming Encounters Date Type Specialty Care Team Description 01/25/2025 Office Visit Internal Medicine Joe Delaney MD [address] [place] [address] 02/03/2025 Office Visit Pain Medicine Patricia Sotelo PA [address] [place], [place] [phone] documented as of this encounter Visit Diagnoses Not on filedocumented in this encounter Care Teams Auto Body Repair Estimator Relationship Specialty Start Date End Date Joe Delaney MD [address] [place] [address] PCP - General Internal Medicine 11/17/18 [place] [address] [place] [address] Referring Physician Internal Medicine 11/17/18 Wan Rod[facility]uez [facility] [place] [phone] 06/02/19 Rozina Petersen MD Gastroenterology 03/30/20 documented as of this encounter
--- OUTSIDE RECORDS SUMMARY | 2024-12-18 10:49 | XMS_ITS | Encounter Summary ---
Author Organization [facility] Address [address] [place] [address] Phone Care Team Providers Care Dress Cutter Name Role Phone Joe Delaney MD Primary Care Provider [phone] Twan Davis MD Unavailable [phone] Wan Rodríguez Unavailable [phone] Rozina Petersen MD Unavailable Encounter Details Date Type Department Care Team Description 11/06/2022 Orders Only Internal Medicine [address] [place] [phone] Joe Delaney MD [address] [place] [address] Essential hypertension; Paroxysmal atrial fibrillation; Laboratory examination ordered as part of a routine general medical examination; GERD without esophagitis Social History Tobacco Use Types Packs/Day Years [...] suspected to have Coronavirus/COVID-19? No / Unsure 11/09/2022 9:06 AM EDT documented as of this encounter Plan of Treatment Upcoming Encounters Date Type Specialty Care Team Description 01/25/2025 Office Visit Internal Medicine Joe Delaney MD [address] [place] [address] 02/03/2025 Office Visit Pain Medicine Patricia Sotelo PA [address] [place] [address] documented as of this encounter Procedures Procedure Name Priority Date/Time Associated Diagnosis Comments CBC Routine 11/06/2022 8:21 AM EDT GERD without esophagitis LIPID PANEL Routine 11/06/2022 8:21 AM EDT Essential hypertension Paroxysmal atrial fibrillation Laboratory examination ordered as part of a routine general medical examination COMPREHENSIVE METABOLIC PANEL Routine 11/06/2022 8:21 AM EDT Essential hypertension Paroxysmal atrial fibrillation documented in this encounter Results * Comprehensive metabolic panel (11/06/2022 8:21 AM EDT) GLUCOSE 94 70 - 105 mg/dL [facility] Urea nitrogen 15 7 - 25 mg/dL [facility] Creatinine 1.0 0.6 - 1.3 mg/dL [facility] Calcium 10.2 8.6 - 10.3 mg/dL [facility] Total Protein 6.7 6.4 - 8.9 g/dL [facility] Albumin 4.3 3.5 - 5.7 g/dL [facility] Bilirubin, Total 0.51 0.30 - 1.00 mg/dL [facility] Alk Phos, Total 72 34 - 104 U/L [facility] AST 18 15 - 39 U/L [facility] Sodium 142 136 - 145 mEq/L [facility] Potassium 4.7 3.5 - 5.1 mEq/L [facility] Chloride 105 98 - 107 mEq/L [facility] CO2 30.1 21.0 - 31.0 mmol/L [facility] ALT 16 7 - 52 U/L [facility] Anion Gap 12 5 - 19 [facility] BUN/Creatinine Ratio 14.7 6.0 - 20.0 [facility] GFR > 60 >60 ml/min/1.7 3mGF [facility] Comment:If patient is Radha n [place]cu[place] multiply result by 1.212 Alb/Glob ratio 1.8 1.2 - 1.8 [facility] Globulin 2.4 1.6 - 3.9 g/dL [facility] Blood 11/06/2022 8:21 AM EDT 11/06/2022 8:28 AM EDT Joe Delaney MD LAB BLOOD ORDERABLES [facility] [address] [place], [place] [phone] * CBC (11/06/2022 8:21 AM EDT) WBC 5.3 4.8 - 10.8 10*3/mm3 [facility] RBC 5.4 4.7 - 6.1 10*6/mm3 [facility] Hemoglobin 14.4 14.0 - 18.0 g/dL [facility] Hematocrit 43.3 42.0 - 52.0 % [facility] MCV 80.50 80.00 - 94.00 fL [facility] MCH 26.8 26.0 - 34.0 pg [facility] MCHC 33.3 32.0 - 36.0 G/DL [facility] Platelets 276 130 - 400 10*3/mm3 [facility] MPV 9.4 6.4 - 13.3 fL [facility] RDW 14.4 9.1 - 17.5 % [facility] Neutrophils % 50.70 43.10 - 76.10 % [facility] Lymphocytes Relative 37.30 12.90 - 43.90 % [facility] Monocytes Relative 9.10 4.90 - 12.50 % [facility] Eosinophils Relative 2.10 0.00 - 5.00 % [facility] Basophils Relative 0.60 0.00 - 2.00 % [facility] Neutrophils Absolute 2.68 1.60 - 6.70 10*3/mm3 [facility] Lymphocytes Absolute 1.97 0.80 - 3.00 10*3/mm3 [facility] Monocytes Absolute 0.48 0.40 - 0.80 10*3/mm3 [facility] Eosinophils Absolute 0.11 0.00 - 0.50 10*3/mm3 [facility] Basophils Absolute 0.03 0.00 - 1.00 10*3/mm3 [facility] Monocytes Manual 0.20 0.00 - 0.50 % [facility] Eosinophils Absolute 0.01 0.00 - 0.02 10*3/uL [facility] Blood 11/06/2022 8:21 AM EDT 11/06/2022 8:28 AM EDT Joe Delaney MD LAB BLOOD ORDERABLES [facility]QU[facility]Y Performing Organization Address [facility] de Phone Number AP DIAZ [address] [place], [place] [phone] * (ABNORMAL) Lipid panel (11/06/2022 8:21 AM EDT) Cholesterol 178 136 - 200 mg/dL [facility] Comment: Cholesterol Risk Levels Recommended under 200mg/dl Borderline ?200-239mg/dl High Risk ? above ??240mg/dl Triglycerides 78 48 - 200 mg/dL [facility] HDL 44 35 - 92 mg/dL [facility] LDL Cholesterol 118 0 - 140 mg/dL [facility] Total Upc-GDB-Amzs (LDL+VLDL) 133.8(H) 30.0 - 130.0 mg/dl [facility] Chol/HDL Ratio 4.0 3.4 - 24.0 [facility] Blood 11/06/2022 8:21 AM EDT 11/06/2022 8:28 AM EDT Joe Delaney MD LAB BLOOD ORDERABLES Performing Organization Address [facility] Co de Phone Number AP DIAZ [address] [place], [place] [phone] documented in this encounter Visit Diagnoses Diagnosis Essential hypertension Unspecified essential hypertension Paroxysmal atrial fibrillation Atrial fibrillation Laboratory examination ordered as part of a routine general medical examination GERD without esophagitis Esophageal reflux documented in this encounter Care Teams Dress Cutter Relationship Specialty Start Date End Date Joe Delaney MD [address] [place] [address] PCP - General Internal Medicine 11/17/18 Twan Davis MD [address] [place] [address] Referring Physician Internal Medicine 11/17/18 Wan Rodríguez [facility] [place] [address] 06/02/19 Rozina Petersen MD Gastroenterology 03/30/20 documented as of this encounter
--- OUTSIDE RECORDS SUMMARY | 2024-12-18 10:49 | XMS_ITS | Encounter Summary ---
Author Organization [facility] Address [address] [place] [address] Phone Care Team Providers Care Assembler Golf Wood Head Name Role Phone Joe Delaney MD Primary Care Provider [phone] Twan Davis MD Unavailable [phone] Wan Rodríguez Unavailable [phone] Rozina Petersen MD Unavailable Encounter Details Date Type Department Care Team Description 09/07/2016 Conversion Internal Medicine [address] [place] [phone] Joe Delaney MD [address] [place] [address] Social History Tobacco Use Types Packs/Day Years Used Date Smoking Tobacco: Never Assessed Sex Assigned at Date Recorded Male 03/28/2020 2:09 AM E DT Job Start Date Occupation Industry Not on file Not on file Not on file documented as of this encounter Progress Notes * Joe Delaney MD - 09/07/2016 10:52 AM EST History of Present Illness Reason for visit: routine follow-up Chief Complaint: Chronic Comments: Pt states sees Urologist - Dr Renner - in [facility]. Was seen a mo ago, told to return in 3 mo, prostate checked. No report rec'd. Saw Dr Gagnon few days ago, Gerd. New Rx is Aciphex + Carafate. Has occas bouts of A Fib, can feel. Takes Propran bid. Has loop recorder. Overall doing well. Past Medical History: Htn. Elev PSA. . Back Pain. A-fib. . Gerd. Allergic rhinitis. BPH. Past Surgical History: Tonsillectomy, childhood; . [place] teeth extracted;. Dental implants. . Prost bx. Social History: Marital Status: . . Number of Children: 3. Place of : [place]. 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 Sleep History: 6-8 hrs;. Travel History: [place];. Tobacco use: never smoker. Alcohol use:yes. Alcohol use Frequency:social. Drug use: never. Caffeine use (drinks/day): 3. Exercise (times/week): 3. Seatbelt use (%): 100. 2 cats (for 2 years), a dog. . Glucose on 05/10/2016 was 84. BUN on 05/10/2016 was 11. Creatinine on 05/10/2016 was 0.9. Calcium on 05/10/2016 was 9.8. Total Protein on 05/10/2016 was 6.8. Albumin on 05/10/2016 was 4.4. Total Bilirubin on 05/10/2016 was 0.62.Alkaline phosphatase on 05/10/2016 was 77. SGOT on 05/10/2016 was 20.Sodium on 05/10/2016 was 137. Potassium on 05/10/2016 was 4.1. Chloride on 05/10/2016 was 104. Total CO2 on 05/10/2016 was 28.5. SGPT on 05/10/2016 was 21. BUN/CREAT Ratio on 05/10/2016 was 11.7. Anion Gap on 05/10/2016 was 9. Globulin Total on 05/10/2016 was 2.4. Platelets on 11/07/2015 was 270. Hemoglobin on 11/07/2015 was 16.7. Hematocrit on 11/07/2015 was 47.4. WBC on 11/07/2015 was 7.6. Free T-4 on 08/09/2012 was 0.93. TSH on 11/07/2015 was 1.59. Cholesterol on 05/09/2015 was 158. HDLon 05/09/2015 was 36. Triglyceride on 05/09/2015 was 120. LDL on 05/09/2015 was 98. Medications: (prior to this visit) - verified by patient or patient corporate sales representative LOSARTAN POTASSIUM 100 MG TABS (LOSARTAN POTASSIUM) one po qd XARELTO 20 MG TABS (RIVAROXABAN) one po qd DILTIAZEM HCL 30 MG TABS (DILTIAZEM HCL) one po bid FAMOTIDINE 40 MG TABS (FAMOTIDINE) one po bid OMEPRAZOLE 40 MG CPDR (OMEPRAZOLE) one po bid PAXIL 10 MG TAB (PAROXETINE HCL) 1 tab po q am FLECAINIDE ACETATE 50 MG TABS (FLECAINIDE ACETATE) 1.5 tabs po bid PROPRANOLOL HCL 10 MG TABS (PROPRANOLOL HCL) one po prn for A Fib. ANUSOL-HC 2.5 % CREA (HYDROCORTISONE) apply litely to hemorrhoids after warm sitz bath qd Allergies: PCN (Moderate) AMLODIPINE BESYLATE (AMLODIPINE BESYLATE) (Moderate) PENICILLIN (Moderate) Review of Systems General: Denies fevers, chills, fatigue, malaise. Cardiovascular: Complains of palpitations. Denies chest pains, syncope. occas palp, Admits to but does not complain of the aforementioned. Respiratory: Denies cough, wheezing. Gastrointestinal: Denies change inbowel habits, abdominal pain. Vital Signs Entering Staff: Cecy Whitten MA September 07, 2016 10:54 AM Entered weight: 220 lb. Calculated weight: 220 lb. (100.00kg.) Height: 74in.(187.96cm.) Blood Pressure: 128/68 Pulse Rate: 55 Pulse rhythm: regular Expanded BP Assessment Right arm BP: 130/76 mm Hg Apical Pulse Rate: 56 O2 Sat: 98% on Room Air - At Rest Body Mass Index in-lb BMI (in-lb) 28.35 Physical Exam General Appearance: well nourished, well hydrated General comments: fit Skin: warm and dry, no rash Head: normocephalic Eyes:conjunctival clear, no discharge Neck: supple, no significant enlarged lymph nodes, no neck masses, no pain/tenderness with palpation, thyroid normal palpation Respiratory: no accessory muscle use, equal air expansion, clear to auscultation, no rales, no rhonchi, no evidence of consolidation, no wheezes Cardiovascular: NL S1/S2, no murmurs, no S3/S4 or gallop rhythm, no edema Cardiovascular Comments: reg Gastrointestinal (Abdomen): abdomen soft w/o masses, non-distended/non-tender Genitourinary (male): Male comments: defer Musculoskeletal Exam: Gait and station: normal Digits and nails: normal Lymphatic: Neck: no enlarged lymph nodes, no tenderness Neurologic: no focal deficits, DTR symmetric Psychiatric: Judgment, insight intact, orientated to time/place/person, intact for recent and remote events Preventive Care/Screening EKG: complete (12/27/2015) Colonoscopy: complete (11/11/2012) BMI: 28.35 (09/07/2016) Blood Pressure: 128/68 (09/07/2016) Tobaccouse: never smoker (06/07/2016) Alcohol use: yes (06/07/2016) Drug use: never (06/07/2016) CHOLESTEROL: 158 (05/09/2015) HDL: 36 (05/09/2015) LDL: 98 (05/09/2015) TRIGLYCERIDE: 120 (05/09/2015) PSA: 8.96 (05/10/2016) PNEUMOCOCCAL: refused (07/18/2012) Prevnar 13: refused (09/07/2016) FLU VAX: 05/08/2016 Assessment Problems: Assessed KEY'S ESOPHAGUS as improved - Joe Delaney MD - Signed Assessed ATRIAL FIBRILLATION, PAROXYSMAL as improved - Joe Delaney MD - Signed Assessed TIA as improved - Joe Delaney MD - Signed Assessed LUMBAGO as improved - Joe Delaney MD - Signed Assessed ESSENTIAL HYPERTENSION as improved - Joe Delaney MD - Signed Assessed THYROID NODULE as unchanged - Joe Delaney MD - Signed Assessed ANXIETY as unchanged - Joe Delaney MD - Signed Assessed GERD as improved - Joe Delaney MD - Signed Comments: Sees Dr Davis. NO reports rec'd. Refuses vaccines. Plan Medications (added/changed): ACIPHEX 20 MG TBEC (RABEPRAZOLE SODIUM) one po qd CARAFATE 1 GM/10ML SUSP (SUCRALFATE) one gram po tid. Medications (removed): DILTIAZEM HCL 30 MG TABS (DILTIAZEM HCL) one po bid - Regimen completed FAMOTIDINE 40 MG TABS (FAMOTIDINE) one po bid - Not effective PAXIL 10 MG TAB (PAROXETINE HCL) 1 tab po q am - Other Medications (added/changed): ACIPHEX 20 MG TBEC (RABEPRAZOLE SODIUM) one po qd CARAFATE 1 GM/10ML SUSP (SUCRALFATE) one gram po tid. Medications (removed): DILTIAZEM HCL 30 MG TABS (DILTIAZEM HCL) one po bid - Regimen completed FAMOTIDINE 40 MG TABS (FAMOTIDINE) one po bid - Not effective PAXIL 10 MG TAB (PAROXETINE HCL) 1 tab po q am - Other Comments: Continue meds Lab order, approx 2 -13. Weight Management: Patient has anathletic build and does not require counseling at this time New Orders: SNOMED-CT: [id number] Patient Encounter for Meaningful Use [[id number]] Lipid Panel with reflex DLDL if indicated 995111 [67663] CBC,manual diff if indicated 127651 [78518] Comprehensive Metabolic Profile 613724 [91726] T4, FREE [5015] TSH [5020] Disposition: return to clinic in 4 months cc: Angel GoodLurdes. Dr Lucio Gagnon. Prevnar 13: refused Prevnar 13 Trade Name: Prevnar 13 Injections Medication List Reviewed next appt 01/07/17 w/ DCG at 10:20am appt card handed to patient. labs scheduled 09/17/16 lab slips given to patient end of visit summary handed to patient. Cecy Whitten MA September 07, 2016 11:31 AM Please note, this documentation has been converted into the [employer] EHR from our [employer] EMR forinformational purposes only. This documentation must not be released or used for legal purposes as the note is missing the responsible provider???s signature. A copy of the legal medical record can be obtained or printed only from the [employer] EMR. Lab order reviewed with Dr Allred and is sufficient. Notify pt to proceed with lab order. Please note, this documentation has been converted into the [employer] EHR from our [employer] EMR forinformational purposes only. This documentation must not be released or used for legal purposes as the note is missing the responsible provider???s signature. A copy of the legal medical record can be obtained or printed only from the [employer] EMR. Called patient left message on voicemail to call office back. Please note, this documentation has been converted into the [employer] EHR from our [employer] EMR forinformational purposes only. This documentation must not be released or used for legal purposes as the note is missing the responsible provider???s signature. A copy of the legal medical record can be obtained or printed only from the [employer] EMR. cc send to Susan Olvera Pavelock Please note, this documentation has been converted into the [employer] EHR from our [employer] EMR forinformational purposes only. This documentation must not be released or used for legal purposes as the note is missing the responsible provider???s signature. A copy of the legal medical record can be obtained or printed only from the [employer] EMR. documented in this encounter Plan of Treatment Upcoming Encounters Date Type Specialty Care Team Description 01/25/2025 Office Visit [place] [address] [place] [phone] 02/03/2025 Office Visit Pain Medicine Patricia Sotelo PA [address] [place] [address] documented as of this encounter Visit Diagnoses Not on filedocumented in this encounter Additional Health Concerns Infection Onset Date Last Indicated Resolved Time COVID-19 Rule Out Comment:04/29/2020 Negative (PAT) 02/20/2020 COVID19 NEGATIVE (PAT) 02/23/2020 02/23/2020 02/23/2020 10:42 AM EDT documented as of this encounter Care Teams Assembler Golf Wood Head Relationship Specialty Start Date End Date Joe Delaney MD [address] [place] [address] PCP - General Internal Medicine 11/17/18 [place] [address] [place] [address] Referring Physician Internal Medicine 11/17/18 Wan Rodríguez [facility] [place] [address] 06/02/19 Rozina Petersen MD Gastroenterology 03/30/20 documented as of this encounter
--- OUTSIDE RECORDS SUMMARY | 2024-12-18 10:49 | XMS_ITS | Encounter Summary ---
Author Organization [facility] Address [address] [place] [address] Phone Care Team Providers Care Sequins Slinger Name Role Phone Joe Delaney MD Primary Care Provider [phone] Twan Davis MD Unavailable [phone] Wan Rodríguez Unavailable [phone] Rozina Petersen MD Unavailable Encounter Details Date Type Department Care Team Description 01/11/2016 Conversion Internal Medicine [address] [place] [phone] Joe Delaney MD [facility] [place] [phone] Social History Tobacco Use Types Packs/Day Years Used Date Smoking Tobacco: Never Assessed Sex Assigned at Date Recorded Male 03/28/2020 2:09 AM E DT Job Start Date Occupation Industry Not on file Not on file Not on file documented as of this encounter Progress Notes * Joe Delaney MD - 01/11/2016 1:50 AM EDT Phone Note Medication List Changes: Rx of XARELTO 20 MG TABS (RIVAROXABAN) one po qd; #30[Tablet] x 2; Signed;Entered by: Joe Delaney MD; Authorized by: Joe Delaney MD; Method [facility] [phone]*, [address] [place] [address], Ph: [phone] or [phone], Fax: [phone] ---- Converted from flag ---- ---- 01/06/2016 1:54 PM, Merle Damico LPN wrote: ---- 01/06/2016 11:45 AM, Merle Damico LPN wrote: this patient is asking for a refill on his xarelto. Thank you Aliza Prescriptions: XARELTO 20 MG TABS (RIVAROXABAN) one po qd #30[Tablet] x 2 Entered and Authorized by: Joe Delaney MD Signed by: Joe Delaney MD on 01/11/2016 Method used: Electronically to [facility] [phone]* (retail) [address] [place] [address] Ph: [phone] or [phone] Fax: [phone] RxID: [id number] Please note, this documentation has been converted into the [employer] EHR from our [employer] EMR forinformational purposes only. This documentation must not be released or used for legal purposes as the note is missing the responsible provider???s signature. A copy of the legal medical record can be obtained or printed only from the [employer] EMR. documented in this encounter Plan of Treatment Upcoming Encounters Date Type Specialty Care Team Description 01/25/2025 Office Visit Internal Medicine Joe Delaney MD [address] [place] [address] [phone] 02/03/2025 Office Visit Pain Medicine Patricia Sotelo PA [address] [place], [place] [phone] documented as of this encounter Visit Diagnoses Not on filedocumented in this encounter Additional Health Concerns Infection Onset Date Last Indicated Resolved Time COVID-19 Rule Out Comment:04/29/2020 Negative (PAT) 02/20/2020 COVID19 NEGATIVE (PAT) 02/23/2020 02/23/2020 02/23/2020 10:42 AM EDT documented as of this encounter Care Teams Sequins Slinger Relationship Specialty Start Date End Date Joe Delaney MD [address] [place], [place] [phone] PCP - General Internal Medicine 11/17/18 Twan Davis MD [address] [place] [address] Referring Physician Internal Medicine 11/17/18 Wan Rodríguez [facility] [place] [address] 06/02/19 Rozina Petersen MD Gastroenterology 03/30/20 documented as of this encounter
--- OUTSIDE RECORDS SUMMARY | 2024-12-18 10:49 | XMS_ITS | Encounter Summary ---
Author Organization [facility] Address [address] [place] [address] Phone Care Team Providers Care Carousel Attendant Name Role Phone Joe Mensah MD Primary Care Provider [phone] Twan Davis MD Unavailable [phone] Wan Rodríguez Unavailable [phone] Rozina Petersen MD Unavailable Encounter Details Date Type Department Care Team Description 02/03/2016 Conversion Private Practice - Procedural [address] [place] [phone] Geronimo Salguero MD [address] [place] [address] Social History Tobacco Use Types Packs/Day Years Used Date Smoking Tobacco: Never Assessed Sex Assigned at Date Recorded Male 03/28/2020 2:09 AM E DT Job Start Date Occupation Industry Not on file Not on file Not on file documented as of this encounter Progress Notes * Geronimo Bennett MD - 02/03/2016 11:31 AM EDT History of Present Illness Chief Complaint: follow up NST HISTORY OF PRESENT ILLNESS: Dilip is here for followup of stress test. Patient had shortness of breath, chest tightness, and burning sensation of a lump in his throat mostly after eating and he goes outside and this helps. RE: JEANA SOLANOO Daysi DOS: 02/03/2016 PK/htsbv Job: [id number] Ejection Fraction: 60-65 (11/11/2015) Total Cholesterol: 158 (05/09/2015) LDL: 98 HDL: 36 Triglyceride: 120 Past Medical History(reviewed history from 01/05/2016- no changes required): Htn. Elev PSA. . Back Pain. A-fib. . Gerd. Allergic rhinitis. BPH. Past Surgical History: Tonsillectomy, childhood; . [place] teeth extracted;. Dental implants. . Prost bx. Family History reviewed - no changes required Additional comments:Mother age 88, kidney cancer, hysterectomy, breast cancer, cancerous colonpolyp. Father is , at age 83, [place] suspected. Had high PSA but not Ca. 1 brother is alive and well. 1 sister is alive and well. Social History(reviewed history from 01/06/2016 - no changes required): Marital Status: ; . Number of Children: 3;. Place of : [place];. 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. 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 Sleep History: 6-8 hrs;. Travel History: [place];. Tobacco use: never smoker. Alcohol use:yes. Alcohol use Frequency:social. Drug use: never. Caffeine use (drinks/day): 3. Exercise (times/week): 3. Seatbelt use (%): 100. 2 cats (for 2 years), a dog. . Review of Systems General: Denies fevers, chills, sweats, anorexia, fatigue, malaise, weight loss, weight gain, headache. Cardiovascular: Complains of see HPI. patient states he is still getting pain/tightness in chest - lump in his throat however, it is relieved with antacids Respiratory: Denies cough, dyspnea, excessive sputum, hemoptysis, wheezing. Heme/Lymphatic: Denies abnormal bruising, bleeding, enlarged lymph nodes. Previous Problems: TIA (ICD-435.9) (PRW50-C69.9) ATRIAL FIBRILLATION, PAROXYSMAL (ICD-427.31) (OWD19-W11.0) CHEST DISCOMFORT (ICD-786.59) (WDP78-O22.89) DYSPNEA (ICD-786.09) (FJM27-A49.00) CATARACT (ICD-366.9) (EZX93-Q91.9) PREOPERATIVE EXAMINATION NEC (ICD-V72.83) (UZB75-P02.818) ATRIAL FIBRILLATION (ICD-427.31) (ONH19-B69.0) LUMBAGO (ICD-724.2) (MPT75-X22.5) HX OF BEE STING ALLERGY (ICD-V15.06) (PSK72-T73.030) ESSENTIAL HYPERTENSION (ICD-401.9) (ELK32-J58) OSTEOARTHRITIS, KNEE, RIGHT (ICD-715.96) (QON76-A65.9) INGROWING NAIL (ICD-703.0) (UFR46-B53.0) KNEE PAIN, RIGHT (ICD-719.46) (MKO77-S99.561) ? of ADENOCARCINOMA, PROSTATE (ICD-185) (KEH57-B34) Sx of DEGENERATIVE JOINT DISEASE, KNEE (ICD-715.96) (QND86-P87.9) BENIGN PROSTATIC HYPERPLASIA (ICD-600.00) (PPC13-A56.0) PSA, INCREASED (ICD-790.93) (FYQ95-A71.2) SPRAIN/STRAIN NOS(ICD-848.9) (YIR50-P51.8) SCREENING FOR UNSPECIFIED CONDITION (ICD-V82.9) (OBQ15-P82.9) SCREENING FOR LIPOID DISORDERS (ICD-V77.91) (FZV62-M54.220) ALLERGIC RHINITIS CAUSE UNSPECIFIED (ICD-477.9) POSTNASAL DRIP (ICD-784.91) (ITM76-I09.82) GERD (ICD-530.81) (FEJ18-K74.9) ALLERGIES: PCN (Moderate) AMLODIPINE BESYLATE (AMLODIPINE BESYLATE) (Moderate) PENICILLIN (Moderate) Previous Medications: - verified by patient or patient inbound call center representative LOSARTAN POTASSIUM 100 MG TABS (LOSARTAN POTASSIUM) one po qd XARELTO 20 MG TABS (RIVAROXABAN) one po qd METOPROLOL SUCCINATE ER 25 MG [id number]-PAD (METOPROLOL SUCCINATE) 1 by mouth twice a day PANTOPRAZOLE SODIUM 40 MG TBEC (PANTOPRAZOLE SODIUM) one po qd Intake Form: Vital Signs Entering Staff: Vida Granados February 03, 2016 11:37 AM Entered weight: 227 lb. Calculated weight: 227 lb. (103.18kg.) Height: 74in.(187.96cm.) Expanded BP Assessment Blood Pressure Site #1: 134/86 mm Hg Site: left arm Pulse Site #1: 64 Body Mass Index in-lb BMI (in-lb) 29.25 Body Mass Index cm-kg BMI (cm-kg) 29.21 Physical Exam General appearance: well developed, well nourished, no acute distress Eyes External inspection: conjunctivae and lids normal,no arcus senilis,no xanthelasma,anicteric,no obvious pallor Ears, Nose and Throat Oral mucosa: no pallor,no cyanosis Neck Neck veins: no JVD Thyroid: no enlargement, no lymphadenopathy, single nodule Carotid arteries: pulses 2+, no bruits Respiratory Respiratory effort: nointercostal retractions,no use of accessory muscles Auscultation: clear to auscultation,no rales, no wheezes Cardiovascular Palp/percussion: PMI in 5th ICS at MCL, no thrills Auscultation: normal S1/S2, no murmur, no rub, no gallop Abdominal Abdominal aorta: no enlargement,no bruits Abdomen: soft, non-tender, no masses, bowel sounds normal,no evidence of ascites Liver and spleen: no enlargement Musculoskeletal Back: no deformity Extremities Digits and nails: no clubbing, no cyanosis Femoral arteries: pulses 2+ Pedal pulses: pulses 2+ bilaterally Periph. circulation: no edema Skin Inspection/palpation: no ulcers, no echymosis Mental Status/Neurologic Exam Orientation: alert,oriented to time/place/person Sensation: no focal findings Plan Medications (added/changed): XARELTO 20 MG TABS (RIVAROXABAN) one po qd METOPROLOL SUCCINATE ER 25 MG [id number] (METOPROLOL SUCCINATE) 1 by mouth every day New Orders: SNOMED-CT: [id number] Patient Encounter for Meaningful Use [[id number]] IMPRESSION AND PLAN: 1. Chest pain. I reviewed the myocardial perfusion stress test images. Myocardial perfusion was within normal limits, no evidence of reversible ischemia, small size fixed defect in the apical wall suggestive of apical thinning. EF of 59%. I suspect the symptoms are more GI-related. I will refer him to Dr. Breaux for further GI evaluation. 2. Paroxysmal atrial fibrillation. I have reduced his Toprol to 25 mg a day. Patient is on Xarelto therapy. Followup in six months. RE: DILIP SOLANO DOS: 02/03/2016 PK/htsbv Job: [id number] cc: JOE MENSAH M.D. Prescriptions: METOPROLOL SUCCINATE ER 25 MG [id number] (METOPROLOL SUCCINATE) 1 by mouth every day #30[Tablet] x 6 Entered by: Merle Damico LPN Authorized by: Geronimo Salguero MD Signed by: Merle Damico LPN on 02/03/2016 Method used: Electronically to [facility] [phone]* (retail) [address] [place] [address] Ph: [phone] or [phone] Fax: [phone] RxID: [id number] Please note, this documentation has been converted into the [employer] EHR from our [employer] EMR forinformational purposes only. This documentation must not be released or used for legal purposes as the note is missing the responsible provider?s signature. A copy of the legal medical record can be obtained or printed only from the [employer] EMR. documented in this encounter Plan of Treatment Upcoming Encounters Date Type Specialty Care Team Description 01/25/2025 Office Visit Internal Medicine Joe Mensah MD [address] [place] [address] 02/03/2025 Office Visit [place] [address] [place] [address] documented as of this encounter Visit Diagnoses Not on filedocumented in this encounter Additional Health Concerns Infection Onset Date Last Indicated Resolved Time COVID-19 Rule Out Comment:04/29/2020 Negative (PAT) 02/20/2020 COVID19 NEGATIVE (PAT) 02/23/2020 02/23/2020 02/23/2020 10:42 AM EDT documented as of this encounter Care Teams Carousel Attendant Relationship Specialty Start Date End Date Joe Mensah MD [address] [place] [address] PCP - General Internal Medicine 11/17/18 Twan Davis MD [address] [place] [address] Referring Physician Internal Medicine 11/17/18 Wan Rod[facility]guez [facility] [place] [address] 06/02/19 Rozina Petersen MD Gastroenterology 03/30/20 documented as of this encounter
--- OUTSIDE RECORDS SUMMARY | 2024-12-18 10:49 | XMS_ITS | Encounter Summary ---
Author Organization [facility] Address [address] [place] [address] Phone Care Team Providers Care Division Road Supervisor Name Role Phone Joe Delaney MD Primary Care Provider [phone] Twan Davis MD Unavailable [phone] Wan Rodríguez Unavailable Roznia Petersen MD Unavailable Encounter Details Date Type Department Care Team Description 10/05/2019 Email from [facility] Internal Medicine [address] [place] [phone] [place] [address] [place] [address] [phone] Social History Tobacco Use Types Packs/Day Years [...] Visit Internal Medicine Joe Delaney MD [address] [place], [place] [phone] 02/03/2025 Office Visit Pain Medicine Patricia Sotelo PA [address] [place], [place] [phone] documented as of this encounter Visit Diagnoses Not on filedocumented in this encounter Additional Health Concerns Infection Onset Date Last Indicated Resolved Time COVID-19 Rule Out Comment:04/29/2020 Negative (PAT) 02/20/2020 COVID19 NEGATIVE (PAT) 02/23/2020 02/23/2020 02/23/2020 10:42 AM EDT documented as of this encounter Care Teams Division Road Supervisor Relationship Specialty Start Date End Date Joe Delaney MD [address] [place] [address] PCP - General Internal Medicine 11/17/18 Twan Davis MD [address] [place] [address] Referring Physician Internal Medicine 11/17/18 Wan Rodríguez [facility] [place] [address] 06/02/19 Rozina Petersen MD Gastroenterology 03/30/20 documented as of this encounter
--- OUTSIDE RECORDS SUMMARY | 2024-12-18 10:49 | XMS_ITS | Encounter Summary ---
Author Organization [facility] Address [address] [place] [address] Phone Care Team Providers Care Senior Marketing Analyst Name Role Phone Joe Delaney MD Primary Care Provider [phone] Twan Davis MD Unavailable [phone] Wan Rodríguez Unavailable [phone] Rozina Petersen MD Unavailable Encounter Details Date Type Department Care Team Description 12/29/2015 Conversion Internal Medicine [address] [place] [phone] Joe Delaney MD [address] [place], [place] [phone] Social History Tobacco Use Types Packs/Day Years Used Date Smoking Tobacco: Never Assessed Sex Assigned at Date Recorded Male 03/28/2020 2:09 AM E DT Job Start Date Occupation Industry Not on file Not on file Not on file documented as of this encounter Progress Notes * Joe Delaney MD - 12/29/2015 1:10 AM EDT Clinical List Update Reason for this update: Medication Update Medication List Changes - Changed medication from ELIQUIS 5 MG TABS (APIXABAN) one po bid to XARELTO 20 MG TABS (RIVAROXABAN) one po qd IMPRESSION: TINY FOCUS OF RESTRICTED DIFFUSION RIGHT MIDBRAIN RAISES THE POSSIBILITY OF A TINY ACUTE LACUNAR INFARCT. MINIMAL ISCHEMIC GLIOTIC CHANGE IS SUSPECT LEFT FRONTAL SUBCORTICAL AREA AND RIGHT PARIETAL DEEP WHITE MATTER. Report edited for Dr Gama Contreras MD 12/28/2015 2:28 PM Electronically Signed by Dr Gama Contreras MD 12/28/2015 2:29 PM I personally reviewed the MRI images and discussed the case with Dr Tahir Vasques this am. I also discussed case with Dr Brown last evening. Dr Vasques's reading of the MRI was wnl for age. Small abnormalities can be age related due to small vessel disease. He called the findings soft. He said an MRI repeat in 6 mo could be considered to see if there is any evolution or tissue loss in the area of the alleged stroke. Note that Dr Contreras also uses hedging terminology in his report above. Dr Brown claimed the patient had a stroke. The sx of dizziness and split vision that the pt complained of do not match the MRI findings. Dr Brown claimed that Xarelto is more effective than Eliquis in preventing strokes, stating he had seen 3 cases of strokes on Eliquis in the last week or so. (Please note this is strictlyanecdotal on his part). In my opinion, either Eliquis or Xarelto are fine - they both work. But I do not believe that the patient had a definite stroke. Schedule appt to see me in f/u Joe Delaney MD December 29, 2015 1:17 PM Please note, this documentation has been converted into the Epic EHR from our [employer] EMR forinformational purposes only. This documentation must not be released or used for legal purposes as the note is missing the responsible provider?s signature. A copy of the legal medical record can be obtained or printed only from the [employer] EMR. spoke with patient made appt for 01/30/16 at 11:40am w/ DCG Please note, this documentation has been converted into the Epic EHR from our [employer] EMR forinformational purposes only. This documentation must not be released or used for legal purposes as the note is missing the responsible provider???s signature. A copy of the legal medical record can be obtained or printed only from the [employer] EMR. change patient appt to 01/05/16 at 9:20am Please note, this documentation has been converted into the Epic EHR from our [employer] EMR forinformational purposes only. This documentation must not be released or used for legal purposes as the note is missing the responsible provider???s signature. A copy of the legal medical record can be obtained or printed only from the [facility] EMR. documented in this encounter Plan of Treatment Upcoming Encounters Date Type Specialty Care Team Description 01/25/2025 Office Visit Internal Medicine Joe Delaney MD [address] [place] [address] [phone] 02/03/2025 Office [place] [address] [place] [address] documented as of this encounter Visit Diagnoses Not on filedocumented in this encounter Additional Health Concerns Infection Onset Date Last Indicated Resolved Time COVID-19 Rule Out Comment:04/29/2020 Negative (PAT) 02/20/2020 COVID19 NEGATIVE (PAT) 02/23/2020 02/23/2020 02/23/2020 10:42 AM EDT documented as of this encounter Care Teams Senior Marketing Analyst Relationship Specialty Start Date End Date Joe Delaney MD [address] [place] [address] [phone] PCP - General Internal Medicine 11/17/18 [place] [address] [place] [address] Referring Physician Internal Medicine 11/17/18 Wan Rodríguez [facility] [place] [address] 06/02/19 Rozina Petersen MD Gastroenterology 03/30/20 documented as of this encounter
--- OUTSIDE RECORDS SUMMARY | 2024-12-18 10:49 | XMS_ITS | Encounter Summary ---
Author Organization [facility] Address [address] [place] [address] Phone Care Team Providers Care Oracle Technical Architect Name Role Phone Joe Mensah MD Primary Care Provider [phone] Twan Davis MD Unavailable [phone] Wan Rodríguez Unavailable [phone] Rozina Petersen MD Unavailable Encounter Details Date Type Department Care Team Description 06/07/2016 Conversion Neurology [address] [place] [phone] Ubaldo Valerio MD [address] [place], [place] [phone] Social History Tobacco Use Types Packs/Day Years Used Date Smoking Tobacco: Never Assessed Sex Assigned at Date Recorded Male 03/28/2020 2:09 AM E DT Job Start Date Occupation Industry Not on file Not on file Not on file documented as of this encounter Progress Notes * Ubaldo Valerio MD - 06/07/2016 11:49 AM EDT History of Present Illness Chief Complaint: TIA Past Medical History: Past Surgical History: Tonsillectomy, childhood; . [place] teeth extracted;. Dental implants. . Prost bx. Family History reviewed - no changes required Additional comments:Mother age 88, kidney cancer, hysterectomy, breast cancer, cancerous colonpolyp. Father is , at age 83, [place] suspected. Had high PSA but not Ca. 1 brother is alive and well. 1 sister is alive and well. Social History (reviewed history from 05/08/2016 - no changes required): Marital Status: ; . Number of Children: 3. Place of : [place];. 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 Sleep History: 6-8 hrs;.Travel History: [place];. Tobacco use: never smoker. Alcohol use:yes. Alcohol use Frequency:social.Drug use: never. Caffeine use (drinks/day): 3. Exercise (times/week): 3. Seatbelt use (%): 100. 2 cats (for 2 years), a dog. . Medications: (prior to this visit) - verified by patient or patient c s s representative LOSARTAN POTASSIUM 100 MG TABS (LOSARTAN POTASSIUM) one po qd XARELTO 20 MG TABS (RIVAROXABAN) one po qd DILTIAZEM HCL 30 MG TABS (DILTIAZEM HCL) one po bid DEXILANT 60 MG CPDR(DEXLANSOPRAZOLE) one po qd PEPCID AC 10 MG TABS (FAMOTIDINE) one po bid Allergies: PCN (Moderate) AMLODIPINE BESYLATE (AMLODIPINE BESYLATE) (Moderate) PENICILLIN (Moderate) Vital Signs Entering Staff: Merle Bullock June 07, 2016 11:51 AM Entered weight: 221 lb., 8 oz. Calculated weight: 221.50 lb. (100.68kg.) Height: 74in.(187.96cm.) Blood Pressure: 124/62 Body Mass Index in-lb BMI (in-lb) 28.54 Assessment Problems: Assessed ATRIAL FIBRILLATION, PAROXYSMAL as unchanged - Ubaldo Valerio MD Assessed TIA as unchanged - Ubaldo Valerio MD ANXIETY (ICD-300.00) (RQK13-R22.9) AURAS (ICD-346.50) (NDE99-R16.109) Plan Medications (added/changed): OMEPRAZOLE 20 MG TBEC (OMEPRAZOLE) 1 tab po bid before breakfast and dinner PAXIL 10 MG TAB (PAROXETINE HCL) 1 tab po q am Medications (added/changed): OMEPRAZOLE 20 MG TBEC (OMEPRAZOLE) 1 tab po bid before breakfast and dinner PAXIL 10 MG TAB (PAROXETINE HCL) 1 tab po q am New Orders: SNOMED-CT: [id number] Patient Encounter for Meaningful Use [[id number]] Prescriptions: PAXIL 10 MG TAB (PAROXETINE HCL) 1 tab po q am #30[Tablet] x 8 Entered and Authorized by: Ubaldo Valerio MD Signed by: Ubaldo Valerio MD on 06/07/2016 Method used: Electronically to [facility] [phone]* (retail) [address] [place] [address] Ph: [phone] or [phone] Fax: [phone] RxID: Injections Medication List Reviewed Allergy List Reviewed REFERRING PHYSICIAN: JOE MENSAH M.D. CHIEF COMPLAINT: Evaluation for TIA. HISTORY OF PRESENT ILLNESS: The patient is a 65-year-old man who reports he was diagnosed with atrial fib in November 2015. He was started on metoprolol and Eliquis, on which he seemed to do well until it recurred in late December. He had an episode with dizziness and split vision, which he has had in the past, for which he was seen at [facility] and had a workup, where he was hospitalized for a day. Discharged on Xarelto. He has had no further symptoms. In view of the above, the concern for TIA was raised, prompting this visit. Patient reports he has had these recurrent episodes of central visual obscuration, which he describes as split vision, where he can see above and below but not in the middle, and it involves both visual ponce, lasts about an hour. He has had five such episodes in the last 30 years. They are not associated with any other features, so this episode was not new for him. PAST MEDICAL HISTORY: Remarkable for hypertension, benign prostatic hypertrophy, GE reflux. He had left cataract done. He has a lens implant on his right eye. He also has motion sickness and Vega's esophagitis. REVIEW OF SYSTEMS: Vision with glasses good. Hearing is intact. Speech/Swallowing; Denies trouble. Bladder/Bowel problems: Denied. Ambulates independently. Denies any pulmonary or kidney problems. PHYSICAL EXAMINATION: Today, this is a thin-built man who is alert, cooperative. Head is atraumatic. His neck is supple. Back straight. Heart sounds are normal. Chest clear. Abdomen/ exam deferred. Extremity examination unremarkable. Neuro exam: Alert, cooperative. Cranial nerve exam showed pupils to be equal, reactive. Gaze is conjugate. Extraocular movements and visual ponce full. Funduscopy showed sharp disc margins. Facial movements symmetric. Tongue is midline. Motor exam: Right-handed. Strength and tone unremarkable. Reflexes 2+ throughout. Downgoing toes. Sensory: He acknowledged touch. Showed no kiknpl-cy-wclx dysmetria. Ambulates easily. Gait and stance are unremarkable. Discussing with the patient, he has had significant stress and has had anxiety for at least a year if not longer. He has not been on an anti-anxiety medication. Notes from his evaluation in the hospital when he was admitted in late December with his symptoms, the reports were reviewed. He had a CT brain, which was unremarkable. A CT angio of the head and neck was reported as unremarkable, and I was able to review the images with the patient. We also noticed that he had multiple thyroid complex nodules reported. He also had an MRI of the brain, where they reported tiny focus of restricted diffusion in the right mid brain, which raised the question of a tiny lacunar infarct. On the images we could not really make this out. Patient also had a perfusion study done through Dr. Salguero, and those reports were also available for review. IMPRESSION: This is a 65-year-old man who by description had had an episode of dizziness. It is unclear if this was truly a TIA. Most likely it was the auras that he had had in the past. He has paroxysmal atrialfibrillation. Of course, a TIA cannot be excluded given the underlying risk factors. He does have significant anxiety. RECOMMENDATIONS: Given the above, I have started him on Paxil. He is already on Xarelto. He follows with cardiology, and they will be reassessing him As far as his thyroid nodules, he should check with his primary physician in that regard. Should here be change in condition or problems, he is to give me a call. He will follow with me in four months or should the need arise. His concerns addressed. RE: DILIP SOLANO DOS: 06/07/2016 MILIND/htssa Job: [id number] cc: JOE MENSAH M.D. Please note, this documentation has been converted into the [employer] EHR from our [employer] EMR forinformational purposes only. This documentation must not be released or used for legal purposes as the note is missing the responsible provider???s signature. A copy of the legal medical record can be obtained or printed only from the [employer] EMR. documented in this encounter Plan of Treatment Upcoming Encounters Date Type Specialty Care Team Description 01/25/2025 Office Visit Internal Medicine Joe Mensah MD [address] [place], [place] [phone] 02/03/2025 Office [place] [address] [place] [address] [phone] documented as of this encounter Visit Diagnoses Not on filedocumented in this encounter Additional Health Concerns Infection Onset Date Last Indicated Resolved Time COVID-19 Rule Out Comment:04/29/2020 Negative (PAT) 02/20/2020 COVID19 NEGATIVE (PAT) 02/23/2020 02/23/2020 02/23/2020 10:42 AM EDT documented as of this encounter Care Teams Oracle Technical Architect Relationship Specialty Start Date End Date Joe Mensah MD [address] [place] [address] [phone] PCP - General Internal Medicine 11/17/18 Twan Davis MD [address] [place] [address] Referring Physician Internal Medicine 11/17/18 Wan Rodríguez [facility] [place] [address] 06/02/19 Rozina Petersen MD Gastroenterology 03/30/20 documented as of this encounter
--- OUTSIDE RECORDS SUMMARY | 2024-12-18 10:49 | XMS_ITS | Encounter Summary ---
Author Organization [facility] Address [address] [place] [address] Phone Care Team Providers Care Communication Analyst Name Role Phone Joe Delaney MD Primary Care Provider [phone] Twan Davis MD Unavailable [phone] Wan Rodríguez Unavailable [phone] Rozina Petersen MD Unavailable Encounter Details Date Type Department Care Team Description 10/20/2024 Email from [employer] Internal Medicine [address] [place] [phone] Joe Delaney MD [address] [place] [address] Social History Tobacco Use Types Packs/Day [...] suspected to have Coronavirus/COVID-19? No / Unsure 10/21/2024 10:26 AM EDT documented as of this encounter Plan of Treatment Upcoming Encounters Date Type Specialty Care Team Description 01/25/2025 Office Visit Internal Medicine Joe Delaney MD [address] [place] [address] 02/03/2025 Office Visit Pain Medicine Patricia Sotelo PA [address] [place], [place] [id number] documented as of this encounter Visit Diagnoses Not on filedocumented in this encounter Care Teams Communication Analyst Relationship Specialty Start Date End Date Joe Delaney MD [address] [place] [address] PCP - General Internal Medicine 11/17/18 [place] [address] [place] [address] Referring Physician Internal Medicine 11/17/18 Wan Rod[facility]guez [facility] [place] [address] 06/02/19 Rozina Petersen MD Gastroenterology 03/30/20 documented as of this encounter
--- OUTSIDE RECORDS SUMMARY | 2024-12-18 10:49 | XMS_ITS | Encounter Summary ---
Author Organization [facility] Address [address] [place] [address] Phone Care Team Providers Care Digital Photographer Name Role Phone Joe Delaney MD Primary Care Provider [phone] Twan Davis MD Unavailable [phone] Wan Rodríguez Unavailable [phone] Rozina Petersen MD Unavailable Encounter Details Date Type Department Care Team Description 10/20/2024 Email from [facility] [address] [place] [phone] Jamison Castano MD [address] [place] [address] Social History Tobacco Use Types Packs/Day [...] Visit Internal Medicine Joe Delaney MD [address] [place] [address] 02/03/2025 Office Visit Pain Medicine Patricia Sotelo PA [address] [place] [address] documented as of this encounter Visit Diagnoses Not on filedocumented in this encounter Care Teams Digital Photographer Relationship Specialty Start Date End Date Joe Delaney MD [address] [place] [address] PCP - General Internal Medicine 11/17/18 Twan Davis MD [address] [place] [address] Referring Physician Internal Medicine 11/17/18 Wan Rod[facility]guez [facility] [place] [address] 06/02/19 Rozina Petersen MD Gastroenterology 03/30/20 documented as of this encounter
--- OUTSIDE RECORDS SUMMARY | 2024-12-18 10:49 | XMS_ITS | Encounter Summary ---
Author Organization [facility] Address [address] [place] [address] Phone Care Team Providers Care Event Decorator And Designer Name Role Phone Joe Delaney MD Primary Care Provider [phone] Twan Davis MD Unavailable [phone] Wan Rodríguez Unavailable [phone] Rozina Petersen MD Unavailable Encounter Details Date Type Department Care Team Description 10/13/2019 Email from [facility] Internal Medicine [address] [place] [phone] [place] [address] [place] [address] [phone] Social History Tobacco Use Types Packs/Day Years [...] Visit Internal Medicine Joe Delaney MD [address] [place], [place] [phone] 02/03/2025 Office Visit Pain Medicine Patricia Sotelo PA [address] [place], [place] [phone] documented as of this encounter Visit Diagnoses Not on filedocumented in this encounter Additional Health Concerns Infection Onset Date Last Indicated Resolved Time COVID-19 Rule Out Comment:04/29/2020 Negative (PAT) 02/20/2020 COVID19 NEGATIVE (PAT) 02/23/2020 02/23/2020 02/23/2020 10:42 AM EDT documented as of this encounter Care Teams Event Decorator And Designer Relationship Specialty Start Date End Date Joe Delaney MD [address] [place] [address] PCP - General Internal Medicine 11/17/18 Twan Davis MD [address] [place] [address] Referring Physician Internal Medicine 11/17/18 Wan Rodríguez [facility] Vlad Katz [facility] [place] [address] 06/02/19 Rozina Petersen MD Gastroenterology 03/30/20 documented as of this encounter
--- OUTSIDE RECORDS SUMMARY | 2024-12-18 10:49 | XMS_ITS | Encounter Summary ---
Author Organization [facility] Address [address] [place] [address] Phone Care Team Providers Care Glass Sagger Name Role Phone Joe Delaney MD Primary Care Provider [phone] Twan Davis MD Unavailable [phone] Wan Rodríguez Unavailable [phone] Rozina Petersen MD Unavailable Encounter Details Date Type Department Care Team Description 07/03/2016 Conversion Internal Medicine [address] [place] [phone] Joe Delaney MD [address] [place] [address] Social History Tobacco Use Types Packs/Day Years Used Date Smoking Tobacco: Never Assessed Sex Assigned at Date Recorded Male 03/28/2020 2:09 AM E DT Job Start Date Occupation Industry Not on file Not on file Not on file documented as of this encounter Miscellaneous Notes * Scanned Document - Joe Delaney MD - 07/03/2016 3:32 AM EST OPERATIVE NOTE [facility] [address], [facility] [address] OPERATIVE REPORT NAME: DILIP SOLANO ROOM: 0181-1 AGE: 66 ACCT: [id number] : 1950 MR: [id number] ATTN PHYS: TUYET GUDINO MD PT TYPE: M ADMITTED: 07/02/2016 DATE OF OPERATION: 07/03/2016 SURGEON: Tuyet Gudino MD PREOPERATIVE DIAGNOSIS: Large thrombosed possibly necrotic hemorrhoid. POSTOPERATIVE DIAGNOSIS: Large thrombosed possibly necrotic hemorrhoid. PROCEDURES: Evaluation under anesthesia and hemorrhoidectomy. ANESTHESIA: General with an LMA. OPERATIVE POSITION: Prone celeste-knife. OPERATIVE FINDINGS: This is a 66-year-old male who presented to the emergency room last evening with a very large thrombosed hemorrhoid. The patient has been on Xarelto for atrial fibrillation. Medication was held. After evaluating the patient, it is felt that he be admitted to the hospital and brought to the operating room for removal of this very large thrombosed and possibly necrotic hemorrhoid. DESCRIPTION OF PROCEDURE: The patient was brought to the operating room and placed on the OR table in the prone position. He was put to sleep under good general anesthesia and an LMA inserted. He received preoperative IV antibiotics. He was positioned in a prone celeste-knife position. Buttocks were taped apart. There was a very large thrombosed hemorrhoid involving the left side of the anal canal. The area was prepped with Betadine and draped in a sterile fashion. An operative anoscope was then inserted into the rectum. The thrombosed hemorrhoid was quite obvious and quite large, but no other abnormalities noted in the rectum. It was noted that the patient had a colonoscopy some 3 years ago. So, the hemorrhoid was grasped with the Canadian forceps lifted away from the anal rectal wall and then a Jennifer clamp placed across the base of it. A Harmonic scalpel was then used to completely remove this just 1 large thrombosed hemorrhoid. This was passed off the field as specimen. Hemostasis of the wound was assured especially the patient being on Xarelto. The wound was then closed with interrupted [id number] sutures of 2-0 Vicryl. The area was then thoroughly irrigated with saline. Hemostasis again assured. Gel-Foam pack was placed. The operative anoscope was removed. A 10 mL of 0.5% Marcaine was infused in the anoderm in the area of resection. Sterile dressing was applied. We held it in place with little bit of tape and then disposable underwear. The patient was then rolled from the operating table back onto his bed. His awoke from general anesthesia and taken to recovery room in stable condition. All instrument, needle, and sponge counts were correct. He tolerated the procedure well. Electronically Signed by TUYET GUDINO MD07/06/2016 04:41 P TUYET GUDINO MD * cc: MD TUYET ROBERTSON MD [id number] : mitchell P P JOB: [id number] XD: [id number] EXT DOC ID: [id number] REVIEWED ONLY Please note, this documentation has been converted into the [employer] EHR from our [employer] EMR forinformational purposes only. This documentation must not be released or used for legal purposes as the note is missing the responsible provider???s signature. A copy of the legal medical record can be obtained or printed only from the [employer] EMR. documented in this encounter Plan of Treatment Upcoming Encounters Date Type Specialty Care Team Description 01/25/2025 Office Visit Internal Medicine Joe Delaney MD [address] [place] [address] 02/03/2025 Office Visit Pain Medicine Patricia Sotelo PA [address] [place] [address] documented as of this encounter Visit Diagnoses Not on filedocumented in this encounter Additional Health Concerns Infection Onset Date Last Indicated Resolved Time COVID-19 Rule Out Comment:04/29/2020 Negative (PAT) 02/20/2020 COVID19 NEGATIVE (PAT) 02/23/2020 02/23/2020 02/23/2020 10:42 AM EDT documented as of this encounter Care Teams Glass Sagger Relationship Specialty Start Date End Date Joe Delaney MD [address] [place], [place] [phone] PCP - General Internal Medicine 11/17/18 [place] [address] [place] [address] Referring Physician Internal Medicine 11/17/18 Wan Rodríguez [facility] [place] [address] 06/02/19 Rozina Petersen MD Gastroenterology 03/30/20 documented as of this encounter
--- OUTSIDE RECORDS SUMMARY | 2024-12-18 10:49 | XMS_ITS | Encounter Summary ---
Author Organization [facility] Address [address] [place] [address] Phone Care Team Providers Care Extract Wringer Name Role Phone Joe Delaney MD Primary Care Provider Twan Davis MD Unavailable [phone] Wan Rodríguez Unavailable Rozina Petersen MD Unavailable Encounter Details Date Type Department Care Team Description 01/23/2016 Conversion Internal Medicine [address] [place] [phone] Joe Delaney MD [address] [place] [address] Social History Tobacco Use Types Packs/Day Years Used Date Smoking Tobacco: Never Assessed Sex Assigned at Date Recorded Male 03/28/2020 2:09 AM E DT Job Start Date Occupation Industry Not on file Not on file Not on file documented as of this encounter Progress Notes * Joe Delaney MD - 01/23/2016 2:24 AM EDT Phone Note Caller's Name: DILIP Call Details: Dilip called. Additional comments: Patient called office stated that he is having burning in the chest, tightnessin the chest. Patient stated he thinks its his losartan. Please advise thank you. Emili Curtis LPNJun2015 2:25 PM . Please return call to Dilip at home. Taken by: Emili Curtis LPN on January 23, 2016 2:24 PM Has had Cardiac Eval. I don't think Losartan causes that. Could also be Gerd. Try otc Prilosec. OK to stop Losartan for a few wks and monitor BP. It may go up but not immediately Schedule follow up if not already done Joe Delaney MD January 23, 2016 3:00 PM Please note, this documentation has been converted into the [employer] EHR from our [employer] EMR forinformational purposes only. This documentation must not be released or used for legal purposes as the note is missing the responsible provider???s signature. A copy of the legal medical record can be obtained or printed only from the [employer] EMR. patient is aware of above, patient already has appt for 01/30/16 Please note, this documentation has been converted into the [employer] EHR from our [employer] EMR forinformational purposes only. This documentation must not be released or used for legal purposes as the note is missing the responsible provider???s signature. A copy of the legal medical record can be obtained or printed only from the [employer] EMR. documented in this encounter Plan of Treatment Upcoming Encounters Date Type Specialty Care Team Description 01/25/2025 Office Visit Internal Medicine Joe Delaney MD [address] [place] [phone] 02/03/2025 Office Visit Pain Medicine Patricia Sotelo PA [address] [place] [address] documented as of this encounter Visit Diagnoses Not on filedocumented in this encounter Additional Health Concerns Infection Onset Date Last Indicated Resolved Time COVID-19 Rule Out Comment:04/29/2020 Negative (PAT) 02/20/2020 COVID19 NEGATIVE (PAT) 02/23/2020 02/23/2020 02/23/2020 10:42 AM EDT documented as of this encounter Care Teams Extract Wringer Relationship Specialty Start Date End Date Joe Delaney MD [address] [place] [address] PCP - General Internal Medicine 11/17/18 Twan Davis MD [address] [place] [address] Referring Physician Internal Medicine 11/17/18 Wan Rodríguez [facility] Vlad Katz [facility] [place] [address] 06/02/19 Rozina Petersen MD Gastroenterology 03/30/20 documented as of this encounter
--- OUTSIDE RECORDS SUMMARY | 2024-12-18 10:49 | XMS_ITS | Encounter Summary ---
Author Organization [facility] Address [address] [place] [address] Phone Care Team Providers Care Bell Ringer Name Role Phone Joe Delaney MD Primary Care Provider [phone] Twan Davis MD Unavailable [phone] Wan Rodríguez Unavailable [phone] Rozina Petersen MD Unavailable Encounter Details Date Type Department Care Team Description 05/08/2016 Conversion Internal Medicine [address] [place] [phone] Joe Delaney MD [address] [place], [place] [phone] Social History Tobacco Use Types Packs/Day Years Used Date Smoking Tobacco: Never Assessed Sex Assigned at Date Recorded Male 03/28/2020 2:09 AM E DT Job Start Date Occupation Industry Not on file Not on file Not on file documented as of this encounter Progress Notes * Joe Delaney MD - 05/08/2016 10:33 AM EDT History of Present Illness Reason for visit: routine follow-up Chief Complaint: meds, chronic Comments: PT states he decided to see Dr Davis due to side effects of meds. Toprol was changed toDiltiazem 30 mg bid. Feels less dizzy, concentration is better. Also, still has bad Gerd. Dr Gagnon switched him to Dexilant, hasn't helped. Also takes Pepcid otc AND Rx Famotidine. States went to [facility] [place], had Endo 8-29 there. Patchy candidiasis was found. [place] did NOT send reports but pt brought in his own. Also saw a Bridge Instructor in [place], Dr Lucio Osorio, who said he was on right meds. Cardiac report rec'd and noted. Past Medical History: Htn. Elev PSA. . Back Pain. A-fib. . Gerd. Allergic rhinitis. BPH. Past Surgical History: Tonsillectomy, childhood; . [place] teeth extracted;. Dental implants. . Prost bx. Social History: Marital Status: ; . Number of Children: 3. Place of : [place];. 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 Sleep History: 6-8 hrs;.Travel History: [place];. Tobacco use: never smoker. Alcohol use:yes. Alcohol use Frequency:social.Drug use: never. Caffeine use (drinks/day): 3. Exercise (times/week): 3. Seatbelt use (%): 100. 2 cats (for 2 years), a dog. . on 11/07/2015 was 94. BUN on 11/07/2015 was 9. Creatinine on 11/07/2015 was 1.0. Calcium on 11/07/2015 was 10.1. Total Protein on 11/07/2015 was 7.4. Albumin on 11/07/2015 was 4.6. Total Bilirubin on11/07/2015 was 0.60. Alkaline phosphatase on 11/07/2015 was 74. SGOT on 11/07/2015 was 23.Sodium on11/07/2015 was 135. Potassium on 11/07/2015 was 4.5. Chloride on 11/07/2015 was 101. Total CO2 on was 27.8. SGPT on 11/07/2015 was 32. BUN/CREAT Ratio on 11/07/2015 was 9.5. Anion Gap on 11/07/2015 was 11. Globulin Total on 11/07/2015 was 2.8. A/G Ratio on 11/07/2015 was 1.7. Medications: (prior to this visit) - verified by patient or patient inside account representative LOSARTAN POTASSIUM 100 MG TABS (LOSARTAN POTASSIUM) one po qd XARELTO 20 MG TABS (RIVAROXABAN) one po qd METOPROLOL SUCCINATE ER 25 MG [id number] (METOPROLOL SUCCINATE) 1 by mouth every day PANTOPRAZOLE SODIUM 40 MG TBEC (PANTOPRAZOLE SODIUM) one po qd Allergies: PCN (Moderate) AMLODIPINE BESYLATE (AMLODIPINE BESYLATE) (Moderate) PENICILLIN (Moderate) Review of Systems General: Denies fevers, chills, sweats. Gastrointestinal: Complains of heartburn, reflux. Denies melena. c/o hemorrhoids dripping Vital Signs Entering Staff: Cecy Whitten MA May 08, 2016 10:34 AM Entered weight: 221 lb. Calculated weight: 221 lb. (100.45kg.) Height: 74in.(187.96cm.) Blood Pressure: 118/72 Pulse Rate: 58 Expanded BP Assessment Right arm BP: 120/80 mm Hg Apical Pulse Rate: 60 O2 Sat: 98% on Room Air - At Rest Body Mass Index in-lb BMI (in-lb) Physical Exam General Appearance: well nourished, well hydrated General comments: robust, fit Skin: warm and dry, no rash Head: normocephalic Eyes:conjunctival clear, no discharge Neck: supple, no neck masses Respiratory: no accessory muscle use, equal air expansion, clear to auscultation, no rales, no rhonchi, no evidence of consolidation, no wheezes Cardiovascular: NL S1/S2, no murmurs, no S3/S4 or gallop rhythm, no carotid bruits, no abdominal bruits, no edema, no calf tenderness, no clubbing Cardiovascular Comments: regular Breast: no masses Gastrointestinal (Abdomen): abdomen soft w/o masses, non-distended/non-tender, normal bowel sounds,no organomegaly Genitourinary (male): Male comments: deferred Musculoskeletal Exam: Gait and station: normal Digits and nails: normal Lymphatic: Neck: no enlarged lymph nodes, no tenderness Neurologic: no focal deficits, DTR symmetric Psychiatric: Judgment, insight intact, orientated to time/place/person, intact for recent and remote events, no depression, no anxiety Preventive Care/Screening EKG: complete (12/27/2015) Colonoscopy: complete (11/11/2012) BMI: 28.48 (05/08/2016) Blood Pressure: 118/72 (05/08/2016) Tobacco use: never smoker (02/03/2016) Alcohol use: yes (02/03/2016) Drug use: never (02/03/2016) CHOLESTEROL: 158 (05/09/2015) HDL: 36 (05/09/2015) LDL: 98 (05/09/2015) TRIGLYCERIDE: 120 (05/09/2015) PSA: 5.68 (02/09/2013) PNEUMOCOCCAL: refused (07/18/2012) FLU VAX: 05/08/2016 Assessment Problems: Assessed TIA as improved - Joe Delaney MD - Signed Assessed DYSPNEA as improved -Joe Delaney MD - Signed Assessed GERD as deteriorated - Joe Delaney MD - Signed Assessed PSA, INCREASED as unchanged - Joe Delaney MD - Signed Comments: Has appt with Urologist, Dr Zimmerman, in [facility]. Requests PSA test. Plan Medications (added/changed): DILTIAZEM HCL 30 MG TABS (DILTIAZEM HCL) one po bid DEXILANT 60 MG CPDR (DEXLANSOPRAZOLE) one po qd PEPCID AC 10 MG TABS (FAMOTIDINE) one po bid Medications (added/changed): DILTIAZEM HCL 30 MG TABS (DILTIAZEM HCL) one po bid DEXILANT 60 MG CPDR (DEXLANSOPRAZOLE) one po qd PEPCID AC 10 MG TABS (FAMOTIDINE) one po bid Comments: Continue meds However Ca blockers can also be associated with reflux You are already on a strong anti-acid regimen. OK to try dc'ing Diltiazem if Dr Davis approves. You are on a very small dose now. My hunch is that stopping it wouldn't cause the A Fib to return. Regarding Reflux, next step might be pH monitoring -> surgery. Per Dr Gagnon. You do need Urologic follow-up. PSA Weight Management: Patients BMI skewed by muscle mass and does not require counseling at this time New Orders: SNOMED-CT: [id number] Patient Encounter for Meaningful Use [[id number]] Comprehensive Metabolic Profile [id number] [89357] CBC,manual diff if indicated [id number] [58831] PSA [5050] Disposition: return to clinic in 4 months cc: Dr Lucio gagnon Written instructions were given to the patient. See above. Joe Delaney MD May 08, 2016 1:13 PM Flu Vax: refused Injections Medication List Reviewed ] labs scheduled 05/10/16 [facility] bloodwork is non-fasting, lab slip handed to patient. Next office visit 09/05/16 @ 9 am [facility] dcg appt card handed to patient. End of visit instruction sheet handedto patient. Emili Curtis RACHEL May 08, 2016 11:15 AM Please note, this documentation has been converted into the [employer] EHR from our [employer] EMR forinformational purposes only. This documentation must not be released or used for legal purposes as the note is missing the responsible provider???s signature. A copy of the legal medical record can be obtained or printed only from the [employer] EMR. cc send to and Dr. gagnon Please note, this documentation has been converted into the [employer] EHR from our [employer] EMR forinformational purposes only. This documentation must not be released or used for legal purposes as the note is missing the responsible provider???s signature. A copy of the legal medical record can be obtained or printed only from the [employer] EMR. documented in this encounter Plan of Treatment Upcoming Encounters Date Type Specialty Care Team Description 01/25/2025 Office Visit Internal Medicine Joe Delaney MD [address] [place] [address] 02/03/2025 Office Visit [place] [address] [place] [address] [phone] documented as of this encounter Visit Diagnoses Not on filedocumented in this encounter Additional Health Concerns Infection Onset Date Last Indicated Resolved Time COVID-19 Rule Out Comment:04/29/2020 Negative (PAT) 02/20/2020 COVID19 NEGATIVE (PAT) 02/23/2020 02/23/2020 02/23/2020 10:42 AM EDT documented as of this encounter Care Teams Bell Ringer Relationship Specialty Start Date End Date Joe Delaney MD [facility] [place] [address] PCP - General Internal Medicine 11/17/18 Twan Davis MD [address] [place] [address] Referring Physician Internal Medicine 11/17/18 Wan Rodríguez [facility] [place] [place] [address] 06/02/19 Rozina Petersen MD Gastroenterology 03/30/20 documented as of this encounter
--- OUTSIDE RECORDS SUMMARY | 2024-12-18 10:49 | XMS_ITS | Encounter Summary ---
Author Organization [facility] Address [address] [place] [address] Phone Care Team Providers Care Office Administration Name Role Phone Joe Delaney MD Primary Care Provider Twan Davis MD Unavailable [phone] Wan Rodríguez Unavailable [phone] Rozina Petersen MD Unavailable Encounter Details Date Type Department Care Team Description 12/29/2015 Conversion Private Practice - Procedural [address] [place] [phone] Geronimo Salguero MD [address] [place] [address] Social History Tobacco Use Types Packs/Day Years Used Date Smoking Tobacco: Never Assessed Sex Assigned at Date Recorded Male 03/28/2020 2:09 AM E DT Job Start Date Occupation Industry Not on file Not on file Not on file documented as of this encounter Progress Notes * Geronimo Bennett MD - 12/29/2015 11:09 AM EDT Phone Note Caller's Name: DILIP Call Details: Dilip called. Additional comments: patient is calling the office, he has a nst set up for Saturday the December. States that he had a slight stroke. should he keep his appointment to do the nst. please advise. Merle Damico LPN December 29, 2015 11:11 AM . Please return call to [phone]. Taken by: Merle Damico LPN on December 29, 2015 11:09 AM Clinical Staff - Followup Call Details: Spoke with DR Salguero regarding above message per his order stress test to be cancelled for now and needs to be seen in office. Pt aware. Appt already scheduled for 01/06/16. Entered by: Kinza Britt RN December 30, 2015 1:53 PM Please note, this documentation has been converted into the [employer] EHR from our [employer] EMR forinformational purposes only. This documentation must not be released or used for legal purposes as the note is missing the responsible provider???s signature. A copy of the legal medical record can be obtained or printed only from the [employer] EMR. documented in this encounter Plan of Treatment Upcoming Encounters Date Type Specialty Care Team Description 01/25/2025 Office Visit Internal Medicine Joe Delaney MD [address] [place] [phone] 02/03/2025 Office Visit [place] [address] [place] [address] documented as of this encounter Visit Diagnoses Not on filedocumented in this encounter Additional Health Concerns Infection Onset Date Last Indicated Resolved Time COVID-19 Rule Out Comment:04/29/2020 Negative (PAT) 02/20/2020 COVID19 NEGATIVE (PAT) 02/23/2020 02/23/2020 02/23/2020 10:42 AM EDT documented as of this encounter Care Teams Office Administration Relationship Specialty Start Date End Date Joe Delaney MD [facility] [place] [address] PCP - General Internal Medicine 11/17/18 [place] [address] [place] [address] Referring Physician Internal Medicine 11/17/18 Wan Rodríguez Ronakhumaira Katz [facility] [place] [address] 06/02/19 Rozina Petersen MD Gastroenterology 03/30/20 documented as of this encounter
--- OUTSIDE RECORDS SUMMARY | 2024-12-18 10:49 | XMS_ITS | Encounter Summary ---
Author Organization [facility] Address [address] [place] [address] Phone Care Team Providers Care Senior Policy Advisor Name Role Phone Joe Delaney MD Primary Care Provider [phone] Twan Davis MD Unavailable Wan Rodríguez Unavailable [phone] Rozina Petersen MD Unavailable Encounter Details Date Type Department Care Team Description 09/10/2022 Email from [facility] [address] [place] [phone] Patricia Sotelo PA [address] [place] [address] Social History Tobacco Use Types Packs/Day [...] suspected to have Coronavirus/COVID-19? No / Unsure 08/30/2022 2:09 PM EST documented as of this encounter Plan of Treatment Upcoming Encounters Date Type Specialty Care Team Description 01/25/2025 Office Visit Internal Medicine Joe Delaney MD [address] [place] [address] 02/03/2025 Office Visit Pain Medicine Patricia Sotelo PA [address] [place], [place] [phone] documented as of this encounter Visit Diagnoses Not on filedocumented in this encounter Care Teams Senior Policy Advisor Relationship Specialty Start Date End Date Joe Delaney MD [address] [place] [address] PCP - General Internal Medicine 11/17/18 Twan Davis MD [address] [place] [address] Referring Physician Internal Medicine 11/17/18 Wan Rodríguez [facility] [place] [address] 06/02/19 Rozina Petersen MD Gastroenterology 03/30/20 documented as of this encounter
--- OUTSIDE RECORDS SUMMARY | 2024-12-18 10:49 | XMS_ITS | Encounter Summary ---
Author Organization [facility] Address [address] [place] [address] Phone Care Team Providers Care Health Advocate Name Role Phone Joe Delaney MD Primary Care Provider [phone] Twan Davis MD Unavailable [phone] Wan Rodríguez Unavailable [phone] Rozina Petersen MD Unavailable Encounter Details Date Type Department Care Team Description 11/12/2022 Email from [facility] [address] [place] [phone] Joe Delaney MD [address] [place] [address] Social History Tobacco Use Types Packs/Day [...] Visit Internal Medicine Joe Delaney MD [address] [place] [address] 02/03/2025 Office Visit Pain Medicine Patricia Sotelo PA [address] [place], [place] [phone] documented as of this encounter Visit Diagnoses Not on filedocumented in this encounter Care Teams Health Advocate Relationship Specialty Start Date End Date Joe Delaney MD [address] [place] [address] PCP - General Internal Medicine 11/17/18 [place] [address] [place] [address] Referring Physician Internal Medicine 11/17/18 Wan Rodríguez [facility] [place] [address] 06/02/19 Rozina Petersen MD Gastroenterology 03/30/20 documented as of this encounter
--- OUTSIDE RECORDS SUMMARY | 2024-12-18 10:49 | XMS_ITS | Encounter Summary ---
Author Organization [facility] Address [address] [place] [address] Phone Care Team Providers Care Health Inspector Name Role Phone Joe Delaney MD Primary Care Provider [phone] Twan Davis MD Unavailable [phone] Wan Rodríguez Unavailable [phone] Rozina Petersen MD Unavailable Encounter Details Date Type Department Care Team Description 01/05/2016 Conversion Internal Medicine [address] [place] [phone] Joe Delaney MD [address] [place], [place] [phone] Social History Tobacco Use Types Packs/Day Years Used Date Smoking Tobacco: Never Assessed Sex Assigned at Date Recorded Male 03/28/2020 2:09 AM E DT Job Start Date Occupation Industry Not on file Not on file Not on file documented as of this encounter Progress Notes * Joe Delaney MD - 01/05/2016 9:25 AM EDT History of Present Illness Reason for visit: routine follow-up Chief Complaint: Hosp Comments: Hosp 1 nite at [facility] and d/c on December 27. 2 days ago Toprol decreased to 25 mg bid due to fatigue and malaise. Dr Brown switched him from Eliquis to Xarelto, claiming that Xarelto is more effective in preventing strokes. MRI did show a tiny lesion. Has not seen Neurologist. C/o arthralgias joints since home from hosp. Has loop recorder last ~ 3 weeks. Pt notes burning in throat. Has done reading on correlation of Gerd and AF. Uses Tums and soda crackers which are high in NaHCO3 and this helps. Past Medical History: Htn. Elev PSA. . Back Pain. A-fib. . Gerd. Allergic rhinitis. BPH. Past Surgical History: Tonsillectomy, childhood; . [place] teeth extracted;. Dental implants. . Prost bx. Medications: (prior to this visit) - verified by patient or patient direct customer service representative LOSARTAN POTASSIUM 100 MG TABS (LOSARTAN POTASSIUM) one po qd XARELTO 20 MG TABS (RIVAROXABAN) one po qd METOPROLOL SUCCINATE ER 25 MG [id number] (METOPROLOL SUCCINATE) 1 by mouth twice a day Allergies: PCN (Moderate) AMLODIPINE BESYLATE (AMLODIPINE BESYLATE) (Moderate)(Moderate) Review of Systems Cardiovascular: Denies dyspnea on exertion, orthopnea. Respiratory: Denies cough, wheezing. Gastrointestinal: Denies change in bowel habits, abdominal pain, melena. Vital Signs Entering Staff: Cecy Whitten MA January 05, 2016 9:26 AM Entered weight: 233 lb. Calculated weight: 233 lb. (105.91kg.) Height: 74in.(187.96cm.) Blood Pressure: 126/80 Pulse Rate: 56 Pulse rhythm: regular Expanded BP Assessment Right arm BP: 116/80 mm Hg O2 Sat: 97% on Room Air - At Rest Body Mass Index in-lb BMI (in-lb) 30.02 Physical Exam General Appearance: well nourished, well hydrated General comments: robust Skin: warm and dry, no rash Neck: supple, no neck masses Respiratory: no accessory muscle use, equal air expansion, no dullness, clear to auscultation, no rales, no rhonchi, no evidence of consolidation, no wheezes Cardiovascular: NL S1/S2, no murmurs, no S3/S4 or gallop rhythm, no carotid bruits, carotid pulses palpable, no edema, radial pulses palpable Psychiatric: Judgment, insight intact, orientated to time/place/person, intact for recent and remote events Preventive Care/Screening EKG: complete (11/08/2015) Colonoscopy: complete (11/11/2012) BMI: 30.02 (01/05/2016) Blood Pressure: 126/80 (01/05/2016) Tobacco use: never smoker (12/08/2015) Alcohol use: yes (12/08/2015) Drug use: never (12/08/2015) CHOLESTEROL: 158 (05/09/2015) HDL: 36 (05/09/2015) LDL: 98 (05/09/2015) TRIGLYCERIDE: 120 (05/09/2015) PSA: 5.68(02/09/2013) PNEUMOCOCCAL: refused (07/18/2012) FLU VAX: 05/20/2015 Assessment Problems: Assessed ATRIAL FIBRILLATION, PAROXYSMAL as improved - Joe Delaney MD - Signed Assessed DYSPNEA as improved - Joe Delaney MD - Signed Assessed TIA as improved - Joe Delaney MD - Signed Assessed ESSENTIAL HYPERTENSION as improved - Joe Delaney MD - Signed Assessed GERD as unchanged - Joe Delaney MD - Signed TIA (ICD-435.9) (QPS84-X66.9) Plan Medications (added/changed): PANTOPRAZOLE SODIUM 40 MG TBEC (PANTOPRAZOLE SODIUM) one po qd Medications (added/changed): PANTOPRAZOLE SODIUM 40 MG TBEC (PANTOPRAZOLE SODIUM) one po qd Comments: Refer to Dr Valerio (already aware of case). Continue Cardiology f/u Pantoprazole trial. Continue meds. Weight Management: not needed New Orders: SNOMED-CT: [id number] Patient Encounter for Meaningful Use [[id number]] Disposition: return to clinic in 3 months Prescriptions: PANTOPRAZOLE SODIUM 40 MG TBEC (PANTOPRAZOLE SODIUM) one po qd #30[Tablet] x 2 Entered and Authorized by: Joe Delaney MD Signed by: Joe Delaney MD on 01/05/2016 Method used: Electronically to [facility] [phone]* (retail) [address] [place] [address] Ph: [phone] or [phone] Fax: [phone] RxID: [id number] Injections next appt 04/13/16 w/ DCG appt card handed to patient. I refer patient to Dr. Valerio appt 01/25/16 at 4:00pm appt card handed to patient. end of visit summary handed to patient.Cecy Whitten MA 2015 10:27 AM Please note, this documentation has been converted into the [employer] EHR from our [employer] EMR forinformational purposes only. This documentation must not be released or used for legal purposes as the note is missing the responsible provider???s signature. A copy of the legal medical record can be obtained or printed only from the [employer] EMR. documented in this encounter Plan of Treatment Upcoming Encounters Date Type Specialty Care Team Description 01/25/2025 Office Visit Internal Medicine Joe Delaney MD [address] [place], [place] [phone] 02/03/2025 Office Visit Pain Medicine Patricia Sotelo PA [address] [place] [address] documented as of this encounter Visit Diagnoses Not on filedocumented in this encounter Additional Health Concerns Infection Onset Date Last Indicated Resolved Time COVID-19 Rule Out Comment:04/29/2020 Negative (PAT) 02/20/2020 COVID19 NEGATIVE (PAT) 02/23/2020 02/23/2020 02/23/2020 10:42 AM EDT documented as of this encounter Care Teams Health Inspector Relationship Specialty Start Date End Date Joe Delaney MD [address] [place], [place] [phone] PCP - General Internal Medicine 11/17/18 Twan Davis MD [address] [place] [address] Referring Physician Internal Medicine 11/17/18 Wan Rodríguezwell [facility] [place] [address] 06/02/19 Rozina Petersen MD Gastroenterology 03/30/20 documented as of this encounter
--- OUTSIDE RECORDS SUMMARY | 2024-12-18 10:49 | XMS_ITS | Encounter Summary ---
Author Organization [facility] Address [address] [place] [address] Phone Care Team Providers Care Manager Inpatient Name Role Phone Joe Mensah MD Primary Care Provider [phone] Twan Davis MD Unavailable [phone] Wan Rodríguez Unavailable [phone] Rozina Petersen MD Unavailable Encounter Details Date Type Department Care Team Description 01/06/2016 Conversion Private Practice - Procedural [address] [place] [phone] Geronimo Salguero MD [address] [place] [address] Social History Tobacco Use Types Packs/Day Years Used Date Smoking Tobacco: Never Assessed Sex Assigned at Date Recorded Male 03/28/2020 2:09 AM E DT Job Start Date Occupation Industry Not on file Not on file Not on file documented as of this encounter Progress Notes * Geronimo Bennett MD - 01/06/2016 10:17 AM EDT History of Present Illness Chief Complaint: hosp follow up ?TIA HISTORY OF PRESENT ILLNESS: Dilip is here for follow-up. Patient had a TIA. His Eliquis was switched to Xarelto. Metoprolol was also reduced. He had dizziness and split vision symptoms. Now he is feeling symptomatically better. Patient still has shortness of breath, chest tightness. He had a lot of questions. Total time spent was more than 35 minutes. His Loop recorder transmissions had showed paroxysmal atrial fibrillation. He had reported some burning chest discomfort. Was supposed to have a stress test, but that is currently on hold because of his recent TIA. RE: DILIP SOLANO DOS: 01/06/2016 PK/htskk Job: [id number] Ejection Fraction: 60-65 (11/11/2015) Total Cholesterol: 158 (05/09/2015) LDL: 98 HDL: 36 Triglyceride: 120 Past Medical History(reviewed history from 01/05/2016- no changes required): Htn. Elev PSA. . Back Pain. A-fib. . Gerd. Allergic rhinitis. BPH. Past Surgical History: Tonsillectomy, childhood; . Wisdomteeth extracted;. Dental implants. . Prost bx. Family History reviewed - no changes required Additional comments:Mother age 88, kidney cancer, hysterectomy, breast cancer, cancerous colonpolyp. Father is , at age 83, [place] suspected. Had high PSA but not Ca. 1 brother is alive and well. 1 sister is alive and well. Social History (reviewed history from 01/05/2016 - no changes required): Marital Status: ; . Number of Children: 3;. Place of : [place];. 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 Sleep History: 6-8 hrs;. Travel History: [place];. Tobacco use: never smoker. Alcohol use:yes. Alcohol use Frequency:social. Drug use: never. Caffeine use (drinks/day): 3. Exercise (times/week): 3. Seatbelt use (%): 100. 2 cats (for 2 years), a dog. . Review of Systems General: Denies fevers, chills, sweats, anorexia, fatigue, malaise, weight loss, weight gain, headache. Cardiovascular: Complains of see HPI. Respiratory: Denies cough, dyspnea, excessive sputum, hemoptysis, wheezing. Heme/Lymphatic: Denies abnormal bruising, bleeding, enlarged lymph nodes. Previous Problems: TIA (ICD-435.9) (QBA12-X47.9) ATRIAL FIBRILLATION, PAROXYSMAL (ICD-427.31) (SXQ99-A87.0) CHEST DISCOMFORT (ICD-786.59) (WFB58-X10.89) DYSPNEA (ICD-786.09) (BWS86-Q18.00) CATARACT (ICD-366.9) (COD71-M00.9) PREOPERATIVE EXAMINATION NEC (ICD-V72.83) (UJY11-R34.818) ATRIAL FIBRILLATION (ICD-427.31) (DTS71-A63.0) LUMBAGO (ICD-724.2) (AQC29-C65.5) HX OF BEE STING ALLERGY (ICD-V15.06) (SKP46-U28.030) ESSENTIAL HYPERTENSION (ICD-401.9) (SWJ05-G52) OSTEOARTHRITIS, KNEE, RIGHT (ICD-715.96) (JNF80-V33.9) INGROWING NAIL (ICD-703.0)(VIW21-K66.0) KNEE PAIN, RIGHT (ICD-719.46) (HKQ38-B81.561) ? of ADENOCARCINOMA, PROSTATE (ICD-185) (CTE45-N76) Sx of DEGENERATIVE JOINT DISEASE, KNEE (ICD-715.96) (ZQH22-X79.9) BENIGN PROSTATIC HYPERPLASIA (ICD-600.00) (TLZ01-W75.0) PSA, INCREASED (ICD-790.93) (MRR77-X35.2) SPRAIN/STRAIN NOS (ICD-848.9) (BZA86-Z93.8) SCREENING FOR UNSPECIFIED CONDITION (ICD-V82.9) (PJZ41-T65.9) SCREENING FOR LIPOID DISORDERS (ICD-V77.91) (ZYA94-C27.220) ALLERGIC RHINITIS CAUSE UNSPECIFIED (ICD-477.9) POSTNASAL DRIP (ICD-784.91) (DLJ81-R44.82) GERD (ICD-530.81) (BOX92-X80.9) ALLERGIES: PCN (Moderate) AMLODIPINE BESYLATE (AMLODIPINE BESYLATE) (Moderate) PENICILLIN (Moderate) Previous Medications: - verified by patient or patient independent sales representative LOSARTAN POTASSIUM 100 MG TABS (LOSARTAN POTASSIUM) one po qd XARELTO 20 MG TABS (RIVAROXABAN) one po qd METOPROLOL SUCCINATE ER 25 MG [id number] (METOPROLOL SUCCINATE) 1 by mouth twice a day PANTOPRAZOLE SODIUM 40 MG TBEC (PANTOPRAZOLE SODIUM) one po qd Intake Form: Vital Signs Entering Staff: Vida Granados January 06, 2016 10:27 AM Entered weight: 232 lb. Calculated weight: 232 lb. (105.45kg.) Height: 74in.(187.96cm.) Expanded BP Assessment Blood Pressure Site #1: 136/78 mm Hg Site: right arm Pulse Site #1: 64 Body Mass Index in-lb BMI (in-lb) 29.89 Body Mass Index cm-kg BMI (cm-kg) 29.85 Physical Exam General appearance: well developed, well nourished, no acute distress Eyes External inspection: conjunctivae and lids normal,no arcus senilis,no xanthelasma,anicteric,no obviouspallor Ears, Nose and Throat Oral mucosa: no pallor,no cyanosis Neck Neck veins: no JVD Thyroid: no enlargement, no lymphadenopathy Carotid arteries: pulses 2+, no bruits Respiratory Respiratory effort: no intercostal retractions,no use of accessory muscles Auscultation: clear [...] 20 MG TABS (RIVAROXABAN) one po qd New Orders: SNOMED-CT: [id number] Patient Encounter for Meaningful Use [[id number]] IMPRESSION AND PLAN: 1. Paroxysmal atrial fibrillation. Patient with recent TIA. Recommend anticoagulation therapy. Patient is currently on Xarelto that can be continued, 20 mg once a day. 2. Atypical chest discomfort. I discussed the option of stress test. Patient wants to wait. 3.Dyspnea. Previous echo in November 2015 showed EF of 60% to 65%. Will continue his current treatment regimen. Patient had a lot of questions. These were all addressed. Follow-up in three months. Total time spent greater than 25 minutes. All his hospitalization records were reviewed. Loop transmission records were reviewed. This showed episodes of paroxysmal atrial fibrillation. RE: DILIP SOLANO DOS: 01/06/2016 PK/htskk Job: [id number] cc: JOE MENSAH M.D. Please note, this documentation has been converted into the [employer] EHR from our [employer] EMR forinformational purposes only. This documentation must not be released or used for legal purposes as the note is missing the responsible provider???s signature. A copy of the legal medical record can be obtained or printed only from the [employer] EMR. documented in this encounter Plan of Treatment Upcoming Encounters Date Type Specialty Care Team Description 01/25/2025 Office Visit Internal Medicine Joe Mensah MD [address] [place] [address] [phone] 02/03/2025 Office Visit Pain Medicine Patricia Sotelo PA [address] [place] [address] documented as of this encounter Visit Diagnoses Not on filedocumented in this encounter Additional Health Concerns Infection Onset Date Last Indicated Resolved Time COVID-19 Rule Out Comment:04/29/2020 Negative (PAT) 02/20/2020 COVID19 NEGATIVE (PAT) 02/23/2020 02/23/2020 02/23/2020 10:42 AM EDT documented as of this encounter Care Teams Manager Inpatient Relationship Specialty Start Date End Date Joe Mensah MD [address] [place] [address] PCP - General Internal Medicine 11/17/18 Twan Davis MD [address] [place] [address] Referring Physician Internal Medicine 11/17/18 Wan Rodríguez [facility] [place] [address] 06/02/19 Rozina Petersen MD Gastroenterology 03/30/20 documented as of this encounter
--- OUTSIDE RECORDS SUMMARY | 2024-12-18 10:49 | XMS_ITS | Encounter Summary ---
Author Organization [facility] Address [address] [place] [address] Phone Care Team Providers Care Safety And Security Manager Name Role Phone Joe Delaney MD Primary Care Provider [phone] Twan Davis MD Unavailable [phone] Wan Rodríguez Unavailable [phone] Rozina Petersen MD Unavailable Encounter Details Date Type Department Care Team Description 11/12/2019 Email from [facility] Initial Department [address] [place] [address] Mychart, Generic Provider Social History Tobacco Use Types Packs/Day Years [...] Visit Internal Medicine Joe Delaney MD [address] [place], [place] [phone] 02/03/2025 Office Visit Pain Medicine Patricia Sotelo PA [address] [place] [address] documented as of this encounter Visit Diagnoses Not on filedocumented in this encounter Additional Health Concerns Infection Onset Date Last Indicated Resolved Time COVID-19 Rule Out Comment:04/29/2020 Negative (PAT) 02/20/2020 COVID19 NEGATIVE (PAT) 02/23/2020 02/23/2020 02/23/2020 10:42 AM EDT documented as of this encounter Care Teams Safety And Security Manager Relationship Specialty Start Date End Date Joe Delaney MD [address] [place] [address] PCP - General Internal Medicine 11/17/18 Twan Davis MD [address] [place] [address] Referring Physician Internal Medicine 11/17/18 Wan Rod[facility]guez [facility] [place] [address] 06/02/19 Rozina Petersen MD Gastroenterology 03/30/20 documented as of this encounter
--- OUTSIDE RECORDS SUMMARY | 2024-12-18 10:49 | XMS_ITS | Encounter Summary ---
Author Organization [facility] Address [address] [place] [address] Phone Care Team Providers Care Water Meter Mechanic Name Role Phone Joe Delaney MD Primary Care Provider [phone] Twan Davis MD Unavailable [phone] Wan Rodríguez Unavailable [phone] Rozina Petersen MD Unavailable Encounter Details Date Type Department Care Team Description 10/26/2019 Email from [facility] Endocrinology [address] [place] [phone] Jayjay Allred MD [address] [place] [address] [phone] Social History Tobacco Use Types Packs/Day Years [...] Visit Internal Medicine Joe Delaney MD [address] [place], [place] [phone] 02/03/2025 Office Visit Pain Medicine Patricia Sotelo PA [address] [place], [place] [phone] documented as of this encounter Visit Diagnoses Not on filedocumented in this encounter Additional Health Concerns Infection Onset Date Last Indicated Resolved Time COVID-19 Rule Out Comment:04/29/2020 Negative (PAT) 02/20/2020 COVID19 NEGATIVE (PAT) 02/23/2020 02/23/2020 02/23/2020 10:42 AM EDT documented as of this encounter Care Teams Water Meter Mechanic Relationship Specialty Start Date End Date Joe Delaney MD [address] [place] [address] PCP - General Internal Medicine 11/17/18 Twan Davis MD [address] [place] [address] Referring Physician Internal Medicine 11/17/18 Wan Rodríguez [facility] [place] [address] 06/02/19 Rozina Petersen MD Gastroenterology 03/30/20 documented as of this encounter
--- OUTSIDE RECORDS SUMMARY | 2024-12-18 10:49 | XMS_ITS | Encounter Summary ---
Author Organization [facility] Address [address] [place] [address] Phone Care Team Providers Care Paper Cone Grader Name Role Phone Joe Delaney MD Primary Care Provider [phone] Twan Davis MD Unavailable [phone] Wan Rodríguez Unavailable [phone] Rozina Petersen MD Unavailable Encounter Details Date Type Department Care Team Description 10/06/2019 Orders Only Internal Medicine [address] [place] [phone] Joe Delaney MD [address] [place], [place] [phone] Lymphadenitis Social History Tobacco Use Types Packs/Day Years [...] Visit Internal Medicine Joe Delaney MD [address] [place], [place] [phone] 02/03/2025 Office Visit Pain Medicine Patricia Sotelo PA [address] [place], [place] [phone] documented as of this encounter Procedures Procedure Name Priority Date/Time Associated Diagnosis Comments MYRON-MCKEON VIRUS EARLY ANTIGEN ANTIBODY, IGG Routine 10/06/2019 11:21 AM EST MONONUCLEOSIS SCREEN Routine 10/06/2019 11:21 AM EST Lymphadenitis CBC Routine 10/06/2019 11:21 AM EST Lymphadenitis C-REACTIVE PROTEIN Routine 10/06/2019 11 :21 AM EST Lymphadenitis COMPREHENSIVE METABOLIC PANEL Routine 10/06/2019 11:21 AM EST Lymphadenitis documented in this encounter Results * (ABNORMAL) Myron-Mckeon virus early antigen antibody, IgG (10/06/2019 11:21 AM EST) EBV VCA IgM <36.0 0.0 - 35.9 U/mL [facility] Comment: Negative <36.0 Equivocal 36.0 - 43.9 Positive ?>43.9 EBV VCA IgG 457.0(H) 0.0 - 17.9 U/mL [facility] Comment: Negative <18.0 Equivocal 18.0 - 21.9 Positive ?>21.9 EBV Early Antigen Ab, IgG 528.0(H) 0.0 - 17.9 U/mL [facility] Comment: Negative <18.0 Equivocal 18.0 - 21.9 Positive ?>21.9 INTERPRETATION Comment [facility] Comment: EBV Interpretation Chart [place]: Antibody Present + ?Antibody Absent - Interpretation ? VCA-IgM ?? VCA-IgG ??EBNA-IgG No previous infection/ ?- ? - ? - Susceptible Primary infection (new ?+ + ? - or recent) Past Infection ? +or- ? + ? + See comment below* ?+ ? - ? - *Results indicate infection with EBV at some time however cannot predict the timing of the infection since antibodies to EBNA usually develop after primary infection or, alternatively, approximately 5-10% of patients with EBV never develop antibodies to EBNA. Blood 10/06/2019 11:2 1 AM EST 10/06/2019 11:26 AM EST Narrative [facility] - 10/07/2019 4:11 PM EST Testing performed at: [facility]RN[facility], [address] [place] [address], [place], [place],[address], , Loading Unit Tool Setter: Lynn Dukes MD Joe Delaney MD LAB BLOOD ORDERABLES [facility] * CBC (10/06/2019 11:21 AM EST) WBC 7.5 4.8 - 10.8 10*3/mm3 [facility] RBC 5.1 4.7 - 6.1 10*6/mm3 [facility] Hemoglobin 14.7 14.0 - 18.0 g/dL [facility] Hematocrit 43.6 42.0 - 52.0 % [facility] MCV 85.30 80.00 - 94.00 fL [facility] MCH 28.8 26.0 - 34.0 pg [facility] MCHC 33.7 32.0 - 36.0 G/DL [facility] RDW 13.2 9.1 - 17.5 % [facility] Platelets 260 130 - 400 10*3/mm3 [facility] MPV 10.8 6.4 - 13.3 fL [facility] Neutrophils Absolute 5.00 1.60 - 6.70 10*3/mm3 [facility] Neutrophils % 66.80 43.10 - 76.10 % [facility] Lymphocytes Absolute 1.91 0.80 - 3.00 10*3/mm3 [facility] Lymphocytes Relative 25.50 12.90 - 43.90 % [facility] Monocytes Absolute 0.50 0.40 - 0.80 10*3/mm3 [facility] Monocytes Relative 6.70 4.90 - 12.50 % [facility] Eosinophils Man 0.05 0.00 - 0.50 10*3/mm3 [facility] Eosinophils Relative 0.70 0.00 - 5.00 % [facility] Basophils Absolute 0.02 0.00 - 1.00 10*3/mm3 [facility] Basophils Relative 0.30 0.00 - 2.00 % [facility] Comment:Please note automate d differential reference ranges updated 01/17/18. Blood 10/06/2019 11:2 1 AM EST 10/06/2019 11:26 AM EST Joe Delaney MD LAB BLOOD ORDERABLES FREQUENCY [facility] [address] [place] [address]. [place], [place] [phone] * (ABNORMAL) Comprehensive metabolic panel (10/06/2019 11:21 AM EST) GLUCOSE 95 70 - 105 mg/dL [facility] Urea nitrogen 8 7 - 25 mg/dL [facility] Creatinine 1.0 0.6 - 1.3 mg/dL [facility] Calcium 10.1 8.6 - 10.3 mg/dL [facility] Total Protein 6.5 6.4 - 8.9 g/dL [facility] Albumin 4.4 3.5 - 5.7 g/dL [facility] Bilirubin, Total 0.65 0.30 - 1.00 mg/dL [facility] Alk Phos, Total 70 34 - 104 U/L [facility] AST 23 15 - 39 U/L [facility] Sodium 137 136 - 145 mmol/L [facility] Potassium 4.2 3.5 - 5.1 mmol/L [facility] Chloride 102 98 - 107 mmol/L [facility] CO2 29.0 21.0 - 31.0 mmol/L [facility] ALT 22 7 - 52 U/L [facility] Anion Gap 10 5 - 19 [facility] BUN/Creatinine Ratio 8.2 6.0 - 20.0 [facility] GFR > 60 >60 ml/min/1.7 3mGF [facility] Comment:If patient is Radha n Malawian multiply result by 1.212 Alb/Glob ratio 2.1(H) 1.2 - 1.8 [facility] Globulin 2.1 1.6 - 3.9 g/dL [facility] Blood 10/06/2019 11:2 1 AM EST 10/06/2019 11:26 AM EST Joe Delaney MD LAB BLOOD ORDERABLES Performing Organization Address [facility] Co de Phone Number AP DIAZ [address] [place], [place] [phone] * Mononucleosis screen (10/06/2019 11:21 AM EST) Monospot NEGATIVE Negative [facility] Blood 10/06/2019 11:2 1 AM EST 10/06/2019 11:26 AM EST Joe Delanye MD LAB BLOOD ORDERABLES Performing Organization Address [facility] de Phone Number AP DIA[facility] [address] [place], [place] [phone] * C-reactive protein (10/06/2019 11:21 AM EST) Pathologist [facility] CRP 0.10 0.10 - 0.90 mg/dL [facility] Blood 10/06/2019 11:2 1 AM EST 10/06/2019 11:26 AM EST Joe Delaney MD LAB BLOOD ORDERABLES Performing Organization Address [facility] de Phone Number AP DIAZ [address] [place], [place] [phone] documented in this encounter Visit Diagnoses Diagnosis Lymphadenitis Lymphadenitis, unspecified, except mesenteric documented in this encounter Additional Health Concerns Infection Onset Date Last Indicated Resolved Time COVID-19 Rule Out Comment:04/29/2020 Negative (PAT) 02/20/2020 COVID19 NEGATIVE (PAT) 02/23/2020 02/23/2020 02/23/2020 10:42 AM EDT documented as of this encounter Care Teams Paper Cone Grader Relationship Specialty Start Date End Date Joe Delaney MD [address] [place] [address] PCP - General Internal Medicine 11/17/18 Twan Davis MD [address] [place] [address] Referring Physician Internal Medicine 11/17/18 Wan Rod[facility]guez [facility] [place] [address] 06/02/19 Rozina Petersen MD Gastroenterology 03/30/20 documented as of this encounter
--- OUTSIDE RECORDS SUMMARY | 2024-12-18 10:49 | XMS_ITS | Encounter Summary ---
Author Organization [facility] Address [address] [place] [address] Phone Care Team Providers Care Training Technician Name Role Phone Joe Delaney MD Primary Care Provider [phone] Twan Davis MD Unavailable [phone] Wan Rodríguez Unavailable [phone] Rozina Petersen MD Unavailable Encounter Details Date Type Department Care Team Description 2016 Conversion Internal Medicine [address] [place] [phone] Joe Delaney MD [facility] [place], [place] [id number] Social History Tobacco Use Types Packs/Day Years Used Date Smoking Tobacco: Never Assessed Sex Assigned at Date Recorded Male 03/28/2020 2:09 AM E DT Job Start Date Occupation Industry Not on file Not on file Not on file documented as of this encounter Progress Notes * Joe Delaney MD - 2016 1:14 AM EST Clinical List Update Reason for this update: Problem list update Problem List Changes - Added new problem of GOITER, MULTINODULAR (ICD-241.1) (BMD61-P35.2) Assessed GOITER, MULTINODULAR as new Flowsheet Changes - Added new observation of PROBLEMS REV: Done (2016 13:14) Additional comments/actions: Refer to Dr Allred for evaluation of Thyroid. Please note, this documentation has been converted into the [employer] EHR from our [employer] EMR forinformational purposes only. This documentation must not be released or used for legal purposes as the note is missing the responsible provider???s signature. A copy of the legal medical record can be obtained or printed only from the [employer] EMR. Referral made to Dr. Allred's office appt scheduled 08/01/16 @ 2:30 pm. Please note, this documentation has been converted into the Epic EHR from our [employer] EMR forinformational purposes only. This documentation must not be released or used for legal purposes as the note is missing the responsible provider???s signature. A copy of the legal medical record can be obtained or printed only from the [employer] EMR. Patient aware of above. Please note, this documentation has been converted into the Epic EHR from our [employer] EMR forinformational purposes only. This documentation must not be released or used for legal purposes as the note is missing the responsible provider???s signature. A copy of the legal medical record can be obtained or printed only from the [employer] EMR. documented in this encounter Plan of Treatment Upcoming Encounters Date Type Specialty Care Team Description 01/25/2025 Office Visit Internal Medicine Joe Delaney MD [address] [place] [address] 02/03/2025 Office Visit Pain Medicine Patricia Sotelo PA [address] [place] [address] documented as of this encounter Visit Diagnoses Not on filedocumented in this encounter Additional Health Concerns Infection Onset Date Last Indicated Resolved Time COVID-19 Rule Out Comment:04/29/2020 Negative (PAT) 02/20/2020 COVID19 NEGATIVE (PAT) 02/23/2020 02/23/2020 02/23/2020 10:42 AM EDT documented as of this encounter Care Teams Training Technician Relationship Specialty Start Date End Date Joe Delaney MD [address] [place] [address] PCP - General Internal Medicine 11/17/18 Twan Davis MD [address] [place] [address] Referring Physician Internal Medicine 11/17/18 Wan Rodríguez [facility] Vlad Katz [facility] [place] [address] 06/02/19 Rozina Petersen MD Gastroenterology 03/30/20 documented as of this encounter
--- OUTSIDE RECORDS SUMMARY | 2024-12-18 10:49 | XMS_ITS | Encounter Summary ---
Author Organization [facility] Address [address] [place] [address] Phone Care Team Providers Care Blueprint Reader Name Role Phone Joe Delaney MD Primary Care Provider [phone] Twan Davis MD Unavailable [phone] Wan Rodríguez Unavailable Rozina Petersen MD Unavailable Encounter Details Date Type Department Care Team Description 09/28/2024 Email from [facility] [address] [place] [phone] Joe Delaney MD [address] [place] [address] Social History Tobacco Use Types Packs/Day [...] suspected to have Coronavirus/COVID-19? No / Unsure 09/22/2024 2:29 PM EST documented as of this encounter Plan of Treatment Upcoming Encounters Date Type Specialty Care Team Description 01/25/2025 Office Visit Internal Medicine Joe Delaney MD [address] [place] [address] 02/03/2025 Office Visit Pain Medicine Patricia Sotelo PA [address] [place], [place] [phone] documented as of this encounter Visit Diagnoses Not on filedocumented in this encounter Care Teams Blueprint Reader Relationship Specialty Start Date End Date Joe Delaney MD [address] [place] [address] PCP - General Internal Medicine 11/17/18 [place] [address] [place] [address] Referring Physician Internal Medicine 11/17/18 Wan [facility] [place] [phone] 06/02/19 Rozina Petersen MD Gastroenterology 03/30/20 documented as of this encounter
--- OUTSIDE RECORDS SUMMARY | 2024-12-18 10:49 | XMS_ITS | Encounter Summary ---
Author Organization [facility] Address [address] [place] [address] Phone Care Team Providers Care Artillery Maintenance Supervisor Name Role Phone Joe Delaney MD Primary Care Provider Twan Davis MD Unavailable [phone] Wan Rodríguez Unavailable [phone] Rozina Petersen MD Unavailable Encounter Details Date Type Department Care Team Description 02/07/2016 Conversion Internal Medicine [address] [place] [phone] Joe Delaney MD [address] [place] [address] Social History Tobacco Use Types Packs/Day Years Used Date Smoking Tobacco: Never Assessed Sex Assigned at Date Recorded Male 03/28/2020 2:09 AM E DT Job Start Date Occupation Industry Not on file Not on file Not on file documented as of this encounter Progress Notes * Joe Delaney MD - 02/07/2016 4:21 AM EDT Phone Note Caller's Name: DILIP Call Details: Dilip called. Additional comments: Patient called office stated that he would like a referral to a GI doctor due to sx of gerd, shortness of breath, chest pressure. Patient stated he seen Dr. Salguero and his stress test was normal so sx are not his heart. Patient states that protonix helps a little but not much. Please advise thank you. Emili Curtis LPN February 07, 2016 4:22 PM . Please return call to Dilip at cell phone. Taken by: Emili Curtis LPN on February 07, 2016 4:21 PM yes, refer to Dr Delroy Delaney MD February 07, 2016 4:28 PM Please note, this documentation has been converted into the Epic EHR from our [employer] EMR forinformational purposes only. This documentation must not be released or used for legal purposes as the note is missing the responsible provider???s signature. A copy of the legal medical record can be obtained or printed only from the [employer] EMR. Patient aware of above. Please note, this documentation has been converted into the Epic EHR from our [employer] EMR forinformational purposes only. This documentation must not be released or used for legal purposes as the note is missing the responsible provider???s signature. A copy of the legal medical record can be obtained or printed only from the [employer] EMR. documented in this encounter Plan of Treatment Upcoming Encounters Date Type Specialty Care Team Description 01/25/2025 Office Visit Internal Medicine Joe Delaney MD [address] [place], [place] [phone] 02/03/2025 Office Visit Pain Medicine Patricia Sotelo PA [address] [place] [address] documented as of this encounter Visit Diagnoses Not on filedocumented in this encounter Additional Health Concerns Infection Onset Date Last Indicated Resolved Time COVID-19 Rule Out Comment:04/29/2020 Negative (PAT) 02/20/2020 COVID19 NEGATIVE (PAT) 02/23/2020 02/23/2020 02/23/2020 10:42 AM EDT documented as of this encounter Care Teams Artillery Maintenance Supervisor Relationship Specialty Start Date End Date Joe Delaney MD [address] [place] [address] PCP - General Internal Medicine 11/17/18 Twan Davis MD [address] [place] [address] Referring Physician Internal Medicine 11/17/18 Wan Rodríguez [facility] [place] [address] 06/02/19 Rozina Petersen MD Gastroenterology 03/30/20 documented as of this encounter
--- OUTSIDE RECORDS SUMMARY | 2024-12-18 10:49 | XMS_ITS | Encounter Summary ---
Author Organization [facility] Address [address] [place] [address] Phone Care Team Providers Care Level Vial Grinder Name Role Phone Joe Delaney MD Primary Care Provider Twan Davis MD Unavailable [phone] Wan Rodríguez Unavailable [phone] Rozina Petersen MD Unavailable Encounter Details Date Type Department Care Team Description 01/03/2016 Conversion Private Practice - Procedural [address] [place] [phone] Geronimo Salguero MD [address] [place] [address] Social History Tobacco Use Types Packs/Day Years Used Date Smoking Tobacco: Never Assessed Sex Assigned at Date Recorded Male 03/28/2020 2:09 AM E DT Job Start Date Occupation Industry Not on file Not on file Not on file documented as of this encounter Progress Notes * Geronimo Bennett MD - 01/03/2016 1:02 AM EDT Phone Note Caller's Name: DILIP Call Details: Dilip called. Additional comments: patient states that he has been feeling dizzy,sluggish,non coherent and can not concentrate, cant drive and is having a hard time just functioning, this has been going on for 3 days, he feels it has something to do with his meds. he has an appt 01/05 at 10:00. Taken by: Asia Crawford on January 03, 2016 1:02 PM Clinical Staff - Followup Call Details: Per Dr Salguero he can decrease his metoprolol to 25 mg po bid. montior his HR , B/p. if he still feels bad go to the ER. Patient instructed and agreeable. Alex RACHEL January 03, 2016 4:58 PM Medication List Changes: Changed medication from TOPROL XL TBCR 50 MG (METOPROLOL SUCCINATE) 1 by mouth twice a day to METOPROLOL SUCCINATE ER 25 MG [id number] (METOPROLOL SUCCINATE) 1 by mouth twice a day - Signed Please note, this documentation has been converted into the [employer] EHR from our [employer] EMR forinformational purposes only. This documentation must not be released or used for legal purposes as the note is missing the responsible provider???s signature. A copy of the legal medical record can be obtained or printed only from the [employer] EMR. documented in this encounter Plan of Treatment Upcoming Encounters Date Type Specialty Care Team Description 01/25/2025 Office Visit Internal Medicine Joe Delaney MD [address] [place] [phone] 02/03/2025 Office [place] [address] [place] [address] documented as of this encounter Visit Diagnoses Not on filedocumented in this encounter Additional Health Concerns Infection Onset Date Last Indicated Resolved Time COVID-19 Rule Out Comment:04/29/2020 Negative (PAT) 02/20/2020 COVID19 NEGATIVE (PAT) 02/23/2020 02/23/2020 02/23/2020 10:42 AM EDT documented as of this encounter Care Teams Level Vial Grinder Relationship Specialty Start Date End Date Joe Delaney MD [facility] [place] [address] PCP - General Internal Medicine 11/17/18 Twan Davis MD [address] [place] [address] Referring Physician Internal Medicine 11/17/18 Wan Rodríguez [facility] Vlad Katz [facility] [place] [address] 06/02/19 Rozina Petersen MD Gastroenterology 03/30/20 documented as of this encounter
--- OUTSIDE RECORDS SUMMARY | 2024-12-18 10:49 | XMS_ITS | Encounter Summary ---
Author Organization [facility] Address [address] [place] [address] Phone Care Team Providers Care Stator Tester Name Role Phone Joe Delaney MD Primary Care Provider [phone] Twan Davis MD Unavailable [phone] Wan Rodríguez Unavailable [phone] Rozina Petersen MD Unavailable Encounter Details Date Type Department Care Team Description 11/03/2019 Email from [facility] Initial Department [address] [place] [address] Mychart, Generic Provider Social History Tobacco [...] Visit Internal Medicine Joe Delaney MD [address] [place], [place] [phone] 02/03/2025 Office Visit Pain Medicine Patricia Sotelo PA [address] [place] [address] documented as of this encounter Visit Diagnoses Not on filedocumented in this encounter Additional Health Concerns Infection Onset Date Last Indicated Resolved Time COVID-19 Rule Out Comment:04/29/2020 Negative (PAT) 02/20/2020 COVID19 NEGATIVE (PAT) 02/23/2020 02/23/2020 02/23/2020 10:42 AM EDT documented as of this encounter Care Teams Stator Tester Relationship Specialty Start Date End Date Joe Delaney MD [address] [place] [address] PCP - General Internal Medicine 11/17/18 Twan Davis MD [address] [place] [address] Referring Physician Internal Medicine 11/17/18 Wan Rodríguez [facility] [place] [address] 06/02/19 Rozina Petersen MD Gastroenterology 03/30/20 documented as of this encounter
--- OUTSIDE RECORDS SUMMARY | 2024-12-18 10:49 | XMS_ITS | Encounter Summary ---
Author Organization [facility] Address [address] [place] [address] Phone Care Team Providers Care Adjunct Psychology Instructor Name Role Phone Joe Delaney MD Primary Care Provider Twan Davis MD Unavailable [phone] Wan Rodríguez Unavailable [phone] Rozina Petersen MD Unavailable Encounter Details Date Type Department Care Team Description 02/17/2016 Conversion Private Practice - Procedural [address] [place] [phone] Geronimo Salguero MD [address] [place] [address] Social History Tobacco Use Types Packs/Day Years Used Date Smoking Tobacco: Never Assessed Sex Assigned at Date Recorded Male 03/28/2020 2:09 AM E DT Job Start Date Occupation Industry Not on file Not on file Not on file documented as of this encounter Progress Notes * Geronimo Bennett MD - 02/17/2016 1:32 AM EDT Phone Note Call Details: Additional comments: patient would like a 2nd opinion and is requesting that we fax his records to in [facility]. [phone]. Clinical Staff - Followup Call Details: ok per . records faxed and patient aware Entered by: Asia Crawford February 20, 2016 12:11 PM Please note, this documentation has been converted into the [employer] EHR from our [employer] EMR forinformational purposes only. This documentation must not be released or used for legal purposes as the note is missing the responsible provider???s signature. A copy of the legal medical record can be obtained or printed only from the [employer] EMR. documented in this encounter Plan of Treatment Upcoming Encounters Date Type Specialty Care Team Description 01/25/2025 Office Visit [place] [address] [place] [phone] 02/03/2025 Office Visit [place] [address] [place] [address] [phone] documented as of this encounter Visit Diagnoses Not on filedocumented in this encounter Additional Health Concerns Infection Onset Date Last Indicated Resolved Time COVID-19 Rule Out Comment:04/29/2020 Negative (PAT) 02/20/2020 COVID19 NEGATIVE (PAT) 02/23/2020 02/23/2020 02/23/2020 10:42 AM EDT documented as of this encounter Care Teams Adjunct Psychology Instructor Relationship Specialty Start Date End Date Joe Delaney MD [address] [place] [address] [phone] PCP - General Internal Medicine 11/17/18 [place] [address] [place] [address] Referring Physician Internal Medicine 11/17/18 Wan Rodríguez [facility] Urology [place] [id number] 06/02/19 Rozina Petersen MD Gastroenterology 03/30/20 documented as of this encounter
--- OUTSIDE RECORDS SUMMARY | 2024-12-18 10:49 | XMS_ITS | Encounter Summary ---
Author Organization [facility] Address [address] [place] [address] Phone Care Team Providers Care Beater Boss Name Role Phone Joe Delaney MD Primary Care Provider [phone] Twan Davis MD Unavailable [phone] Wan Rodríguez Unavailable [phone] Rozina Petersen MD Unavailable Encounter Details Date Type Department Care Team Description 12/28/2015 Conversion Internal Medicine [address] [place] [phone] Joe Delaney MD [address] [place] [address] Social History Tobacco Use Types Packs/Day Years Used Date Smoking Tobacco: Never Assessed Sex Assigned at Date Recorded Male 03/28/2020 2:09 AM E DT Job Start Date Occupation Industry Not on file Not on file Not on file documented as of this encounter Procedure Notes * Joe Delaney MD - 12/28/2015 8:00 AM EDTAssociated Order(s): IMAGING SCAN LINK SLCT ANGIO HEAD AND NECK CT SCAN INPATIENT FINAL REPORT NAME: DILIP SOLANO : 1950 AGE: [age] year old ACCT: [id number] MR: [id number] ATTENDING : ETHAN TOLEDO MD ROOM: [place] [address] ORDERING: ETHAN TOLEDO MD DATE: 12/27/2015 07:25 P EXAM: SLCT ANGIO HEAD AND NECK ACCN: [id number] HISTORY: Stroke, dizzy for 2 hours, blurred vision. The study was initiated with noncontrast imaging. The patient was injected with intravenous contrast and rescanned with submillimeter collimation. Multiple 2-D and 3-D images have been reconstructed. Data has been viewed on an independent 3-D workstation. 3-D MIP reconstructions were performed COMPARISON: CT head obtained earlier today. INITIAL INTERPRETATION: Initial interpretation was provided by Dr. Hilton from [facility] at the time of the examination. FINDINGS: AORTIC ARCH: There is no evidence of stenosis noted at the origin of brachiocephalic vessels. CAROTIDS: The common carotid bilaterally is unremarkable. The carotid bifurcation bilaterally is widely patent. The ICA to skull base bilaterally is unremarkable. There is no evidence of stenosis noted at either ICA origin. VERTEBRALS: Both vertebral arteries are patent, with normal antegrade flow. The left vertebral is a slightly larger more dominant vessel. The visualized basilar is unremarkable. UGASHIK OFWILLIS ANGIOGRAM: There is no evidence of major vessel occlusion or aneurysm larger than 5 mm noted around the [place]. INCIDENTAL FINDINGS: There is enlargement of the right thyroid gland with multiple nodules, the largest measuring 2.5 cm. Sonographic evaluation is suggested to further evaluate and characterize these. IMPRESSION: 1. COMMON CAROTID, CAROTID BIFURCATION, AND INTERNAL CAROTID BILATERALLY ARE UNREMARKABLE WITH NO EVIDENCE OF STENOSIS AT EITHER CAROTID BIFURCATION. 2. 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 3. THERE IS NO EVIDENCE OF INTRACRANIAL VESSEL OCCLUSION. 4. THERE ARE MULTIPLE RIGHT THYROID COMPLEX NODULES FOR WHICH SONOGRAPHIC EVALUATION IS SUGGESTED. Report edited for Elder Al MD 12/28/2015 10:00 AM Electronically Signed by Elder Al MD 12/28/2015 12:07 PM lw A DL: [id number] cc: REVIEWED ONLY Please note, this documentation has been converted into the TimeLab EHR from our [employer] EMR forinformational purposes only. This documentation must not be released or used for legal purposes as the note is missing the responsible provider???s signature. A copy of the legal medical record can be obtained or printed only from the [employer] EMR. * Joe Delaney MD - 12/28/2015 2:00 AM EDTAssociated Order(s): IMAGING SCAN LINK SLMRI-BRAIN W/WO CMI - MRI - INPATIENT FINAL REPORT ETHAN TOLEDO MD RE: DILIP SOLANO : 1950 ROOM: [place] [address] ACCN: [id number] ACCT: [id number] SCAN PERFORMED ON 12/28/2015 01:55 P @ [facility] EXAM: SLMRI-BRAIN W/WO CONTRAST CLINICAL HISTORY: Double vision since yesterday. Dizziness. Generalized pain since last night. Initial encounter. TECHNIQUE: Axial T1, T2, proton density, diffusion, ADC map, coronal FLAIR, sagittal T1, post Magnevist axial and coronal T1-weighted images performed. Contrast administered; 10.5 mL of Gadavist. FINDINGS: Tiny focus of restricted diffusion is seen in the right midbrain. Possibility of a tiny acute lacunar infarct is raised. There is minimal subcortical hyperintensity seen in the left frontal lobe and deep white matter right parietal lobe, suspect for minimal gliotic change. No abnormal enhancement is seen. Pituitary is unremarkable. Craniocervical junction is intact. Paranasal sinuses appear clear. IMPRESSION: TINY FOCUS OF RESTRICTED DIFFUSION RIGHT MIDBRAIN RAISES THE POSSIBILITY OF A TINY ACUTE LACUNAR INFARCT. MINIMAL ISCHEMIC GLIOTIC CHANGE IS SUSPECT LEFT FRONTALSUBCORTICAL AREA AND RIGHT PARIETAL DEEP WHITE MATTER. Report edited for Dr Gama Contreras MD 12/28/2015 2:28 PM Electronically Signed by Dr Gama Contreras MD 12/28/2015 2:29 PM P P [facility] cc: MD ETHAN CARRION MD REVIEWED ONLY Please note, this documentation has been converted into the TimeLab EHR from our [employer] EMR forinformational purposes only. This documentation must not be released or used for legal purposes as the note is missing the responsible provider???s signature. A copy of the legal medical record can be obtained or printed only from the [employer] EMR. documented in this encounter Plan of Treatment Upcoming Encounters Date Type Specialty Care Team Description 01/25/2025 Office Visit Internal Medicine Joe Delaney MD [address] [place] [address] 02/03/2025 Office Visit Pain Medicine Patricia Sotelo PA [address] [place] [address] documented as of this encounter Procedures Procedure Name Priority Date/Time Associated Diagnosis Comments IMAGING SCAN 12/28/2015 8:00 AM EDT IMAGING SCAN 12/28/2015 2:00 AM EDT documented in this encounter Results * IMAGING SCAN LINK (12/28/2015 8:00 AM EDT) Anatomical Region Laterality Modality Other Procedure Note Joe Delaney MD - 12/28/2015 8:00 AM EDT SLCT ANGIO HEAD AND NECK CT SCAN INPATIENT FINAL REPORT NAME: DILIP SOLANO : 1950 AGE: [age] year old ACCT: [id number] MR: [id number] ATTENDING : ETHAN TOLEDO MD ROOM: [place] [address] ORDERING: ETHAN TOLEDO MD DATE: 12/27/2015 07:25 P EXAM: SLCT ANGIO HEAD AND NECK ACCN: [id number] HISTORY: Stroke, dizzy for 2 hours, blurred vision. The study was initiated with noncontrast imaging. The patient wasinjected with intravenous contrast and rescanned with submillimeter collimation. Multiple 2-D and 3-D images have been reconstructed. Data has beenviewed on an independent 3-D workstation. 3-D MIP reconstructions wereperformed COMPARISON: CT head obtained earlier today. INITIAL INTERPRETATION: Initial interpretation was provided by Dr. Hilton from [facility] at the time of the examination. FINDINGS: AORTIC ARCH: There is no evidence of stenosis noted at the origin of brachiocephalic vessels. CAROTIDS: The common carotid bilaterally is unremarkable. The carotid bifurcation bilaterally is widely patent. The ICA to skull basebilaterally is unremarkable. There is no evidence of stenosis noted at either ICA origin. VERTEBRALS: Both vertebral arteries are patent, with normal antegrade flow. The left vertebral is a slightly larger more dominant vessel. The visualized basilar is unremarkable. UGASH[place] OFWILLIS ANGIOGRAM: There is no evidence of major vesselocclusion or aneurysm larger than 5 mm noted around the [place]. INCIDENTAL FINDINGS: There is enlargement of the right thyroid glandwith multiple nodules, the largest measuring 2.5 cm. Sonographic evaluationis suggested to further evaluate and characterize these. IMPRESSION: 1. COMMON CAROTID, CAROTID BIFURCATION, AND INTERNALCAROTID BILATERALLY ARE UNREMARKABLE WITH NO EVIDENCE OF STENOSIS AT EITHERCAROTID BIFURCATION. 2. 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 3. THERE IS NO EVIDENCE OF INTRACRANIAL VESSEL OCCLUSION. 4. THERE ARE MULTIPLE RIGHT THYROID COMPLEX NODULES FOR WHICHSONOGRAPHIC EVALUATION IS SUGGESTED. Report edited for Elder Al MD 12/28/2015 10:00 AM Electronically Signed by Elder Al MD 12/28/2015 12:07 PM lw A DL: [id number] A cc: REVIEWED ONLY Please note, this documentation has been converted into the TimeLab EHR fromour [employer] EMR for informational purposes only. This documentationmust not be released or used for legal purposes as the note is missing theresponsible provider? s signature. A copy of the legal medical record canbe obtained or printed only from the [employer] EMR. Joe Delaeny MD HEALTH MAINTENANCE * IMAGING SCAN LINK (12/28/2015 2:00 AM EDT) Anatomical Region Laterality Modality Other Procedure Note Joe Delaney MD - 12/28/2015 2:00 AM EDT SLMRI-BRAIN W/WO CMI - MRI - INPATIENT FINAL REPORT ETHAN TOLEDO MD RE: SALVATOREJEANA LEWISO : 1950 ROOM: [place] [address] ACCN: [id number] ACCT: [id number] SCAN PERFORMED ON 12/28/2015 01:55 P @ [facility] EXAM: SLMRI-BRAIN W/WO CONTRAST CLINICAL HISTORY: Double vision since yesterday. Dizziness.Generalized pain since last night. Initial encounter. TECHNIQUE: Axial T1, T2, proton density, diffusion, ADC map, coronalFLAIR, sagittal T1, post Magnevist axial and coronal T1-weighted imagesperformed. Contrast administered; 10.5 mL of Gadavist. FINDINGS: Tiny focus of restricted diffusion is seen in the rightmidbrain. Possibility of a tiny acute lacunar infarct is raised. There is minimal subcortical hyperintensity seen in the left frontallobe and deep white matter right parietal lobe, suspect for minimal gliotic change. No abnormal enhancement is seen. Pituitary is unremarkable. Craniocervical junction is intact. Paranasal sinuses appear clear. IMPRESSION: TINY FOCUS OF RESTRICTED DIFFUSION RIGHT MIDBRAIN RAISES THE POSSIBILITY OF A TINY ACUTE LACUNAR INFARCT. MINIMAL ISCHEMIC GLIOTIC CHANGE IS SUSPECT LEFT FRONTALSUBCORTICAL AREA AND RIGHT PARIETAL DEEP WHITE MATTER. Report edited for Dr Gama Contreras MD 12/28/2015 2:28 PM Electronically Signed by Dr Gama Contreras MD 12/28/2015 2:29 PM P P [facility] cc: MD ETHAN CARRION MD REVIEWED ONLY Please note, this documentation has been converted into the TimeLab EHR fromour [employer] EMR for informational purposes only. This documentationmust not be released or used for legal purposes as the note is missing theresponsible provider? s signature. A copy of the legal medical record canbe obtained or printed only from the [employer] EMR. Joe Delaney MD HEALTH MAINTENANCE documented in this encounter Visit Diagnoses Not on filedocumented in this encounter Additional Health Concerns Infection Onset Date Last Indicated Resolved Time COVID-19 Rule Out Comment:04/29/2020 Negative (PAT) 02/20/2020 COVID19 NEGATIVE (PAT) 02/23/2020 02/23/2020 02/23/2020 10:42 AM EDT documented as of this encounter Care Teams Beater Boss Relationship Specialty Start Date End Date Joe Delaney MD [facility] [place] [address] PCP - General Internal Medicine 11/17/18 Twan Davis MD [address] [place] [address] Referring Physician Internal Medicine 11/17/18 Wan Rodríguez Ronakhumaira [facility] [place] [address] 06/02/19 Rozina Petersen MD Gastroenterology 03/30/20 documented as of this encounter
--- OUTSIDE RECORDS SUMMARY | 2024-12-18 10:49 | XMS_ITS | Encounter Summary ---
Author Organization [facility] Address [address] [place] [address] Phone Care Team Providers Care Cutting Machine Tender Name Role Phone Joe Delaney MD Primary Care Provider [phone] Twan Davis MD Unavailable [phone] Wan Rodríguez Unavailable [phone] Rozina Petersen MD Unavailable Encounter Details Date Type Department Care Team Description 11/03/2022 Email from [facility] [address] [place] [phone] Joe Delaney MD [address] [place] [address] [phone] Social History Tobacco Use Types Packs/Day Years [...] Visit Internal Medicine Joe Delaney MD [address] [place], [place] [phone] 02/03/2025 Office Visit Pain Medicine Patricia Sotelo PA [address] [place], [place] [phone] documented as of this encounter Visit Diagnoses Not on filedocumented in this encounter Care Teams Cutting Machine Tender Relationship Specialty Start Date End Date Joe Delaney MD [address] [place], [place] [phone] PCP - General Internal Medicine 11/17/18 Twan Davis MD [address] [place] [address] Referring Physician Internal Medicine 11/17/18 Wan Rodríguez [facility] [place] [address] 06/02/19 Rozina Petersen MD Gastroenterology 03/30/20 documented as of this encounter
--- OUTSIDE RECORDS SUMMARY | 2024-12-18 10:49 | XMS_ITS | Encounter Summary ---
Author Organization [facility] Address [address] [place] [address] Phone Care Team Providers Care Property Master Name Role Phone Joe Delaney MD Primary Care Provider [phone] Twan Davis MD Unavailable [phone] Wan Rodríguez Unavailable [phone] Rozina Petersen MD Unavailable Encounter Details Date Type Department Care Team Description 10/12/2024 Email from [employer] Physical Medicine and Rehabilitation [address] [place] [phone] Jamison Castano MD [address] [place] [address] Social History Tobacco Use Types Packs/Day [...] Office Visit Internal Medicine Joe Delaney MD [address] [place] [address] 02/03/2025 Office Visit Pain Medicine Patricia Sotelo PA [address] [place] [address] documented as of this encounter Visit Diagnoses Not on filedocumented in this encounter Care Teams Property Master Relationship Specialty Start Date End Date Joe Delaney MD [address] [place] [address] PCP - General Internal Medicine 11/17/18 Twan Davis MD [address] [place] [address] Referring Physician Internal Medicine 11/17/18 Wan Rodríguez [facility] [place] [address] 06/02/19 Rozina Petersen MD Gastroenterology 03/30/20 documented as of this encounter
--- OUTSIDE RECORDS SUMMARY | 2024-12-18 10:49 | XMS_ITS | Encounter Summary ---
Author Organization [facility] Address [address] [place] [address] Phone Care Team Providers Care Whipper Name Role Phone Joe Delaney MD Primary Care Provider [phone] Twan Davis MD Unavailable [phone] Wan Rodríguez Unavailable [phone] Rozina Petersen MD Unavailable Encounter Details Date Type Department Care Team Description 03/27/2016 Conversion Health Information Management - Release of Information [address] [place], [place] [phone] Conversion, [facility] Default Provider For [address] [place] [address] Social History Tobacco Use Types Packs/Day Years Used Date Smoking Tobacco: Never Assessed Sex Assigned at Date Recorded Male 03/28/2020 2:09 AM E DT Job Start Date Occupation Industry Not on file Not on file Not on file documented as of this encounter Progress Notes * [facility] Default Provider For Conversion - 03/27/2016 12:41 PM EDT Patient: DILIP SOLANO ID: [id number] Note: All result statuses are Final unless otherwise noted. Tests: (1) Method of Contact () Order Note: Method of Contact Preferred Method of Contact To help us keep in touch, please help us understand your contact preference for non-urgent healthcare reminders. We encourage you to select Secure Message. It's faster and more secure than postal mail. It also helps us avoid phone messages and requests for you to call us back.Regardless of your choice here, we will always contact you by your preferred phone number for urgent matters. My preferred method of contact is: Letter Observations METHCONTACT letter Note: An exclamation armand (!) indicates a result that was not dispersed into the flowsheet. Document Creation Date: 03/27/2016 12:41 PM (1) Order result status: Final Collection or observation date-time: 03/27/2016 12:41:37 Requested date-time: Receipt date-time: 03/27/2016 12:41:37 Reported date-time: 03/27/2016 12:41:37 Referring Physician: Ordering Physician: (medrec) Specimen Source: Source: [employer] Tanner Order Number: Lab site: Please note, this documentation has been converted into the [employer] EHR from our [employer] EMR for informational purposes only. This documentation must not be released or used for legal purposes as the note is missing the responsible provider???s signature. A copy of the legal medical record can be obtained or printed only from the [employer] EMR. documented in this encounter Plan of Treatment Upcoming Encounters Date Type Specialty Care Team Description 01/25/2025 Office Visit Internal Medicine Joe Delaney MD [address] [place] [address] 02/03/2025 Office Visit Pain Medicine Patricia Sotelo PA [address] [place], [place] [phone] documented as of this encounter Visit Diagnoses Not on filedocumented in this encounter Additional Health Concerns Infection Onset Date Last Indicated Resolved Time COVID-19 Rule Out Comment:04/29/2020 Negative (PAT) 02/20/2020 COVID19 NEGATIVE (PAT) 02/23/2020 02/23/2020 02/23/2020 10:42 AM EDT documented as of this encounter Care Teams Whipper Relationship Specialty Start Date End Date Joe Delaney MD [address] [place], [place] [phone] PCP - General Internal Medicine 11/17/18 [place] [address] [place] [address] Referring Physician Internal Medicine 11/17/18 Wan [facility]uez [facility] [place] [address] 06/02/19 Rozina Petersen MD Gastroenterology 03/30/20 documented as of this encounter
--- OUTSIDE RECORDS SUMMARY | 2024-12-18 10:49 | XMS_ITS | Encounter Summary ---
Author Organization [facility] Address [address] [place] [address] Phone Care Team Providers Care Director Of Laboratory Operations Name Role Phone Joe Delaney MD Primary Care Provider [phone] Twan Davis MD Unavailable [phone] Wan Rodríguez Unavailable [phone] Rozina Petersen MD Unavailable Encounter Details Date Type Department Care Team Description 11/30/[address] [facility] Internal Medicine [address] [place] [phone] [place] [address] [place] [address] [phone] Social History Tobacco Use Types Packs/Day Years [...] Internal Medicine Joe Delaney MD [address] [place], [place] [phone] 02/03/2025 Office Visit Pain Medicine Patricia Sotelo PA [address] [place], [place] [phone] documented as of this encounter Visit Diagnoses Not on filedocumented in this encounter Additional Health Concerns Infection Onset Date Last Indicated Resolved Time COVID-19 Rule Out Comment:04/29/2020 Negative (PAT) 02/20/2020 COVID19 NEGATIVE (PAT) 02/23/2020 02/23/2020 02/23/2020 10:42 AM EDT documented as of this encounter Care Teams Director Of Laboratory Operations Relationship Specialty Start Date End Date Joe Delaney MD [address] [place] [address] PCP - General Internal Medicine 11/17/18 Twan Davis MD [address] [place] [address] Referring Physician Internal Medicine 11/17/18 Wan Rodríguez [facility] Vlad Katz [facility] [place] [address] 06/02/19 Rozina Petersen MD Gastroenterology 03/30/20 documented as of this encounter
--- OUTSIDE RECORDS SUMMARY | 2024-12-18 10:49 | XMS_ITS | Encounter Summary ---
Author Organization [facility] Address [address] [place] [address] Phone Care Team Providers Care Rental Sales Representative Name Role Phone Joe Delaney MD Primary Care Provider Twan Davis MD Unavailable [phone] Wan Rodríguez Unavailable [phone] Rozina Petersen MD Unavailable Encounter Details Date Type Department Care Team Description 09/17/2016 Conversion Internal Medicine [address] [place] [address] Joe Delaney MD [address] [place], [place] [id number] Social History Tobacco Use Types Packs/Day Years Used Date Smoking Tobacco: Never Assessed Sex Assigned at Date Recorded Male 03/28/2020 2:09 AM E DT Job Start Date Occupation Industry Not on file Not on file Not on file documented as of this encounter Plan of Treatment Upcoming Encounters Date Type Specialty Care Team Description 01/25/2025 Office Visit Internal Medicine Joe Delaney MD [address] [place], [place] [id number] 02/03/2025 Office Visit Pain Medicine Patricia Sotelo PA [address] [place] [address] documented as of this encounter Procedures Procedure Name Priority Date/Time Associated Diagnosis Comments CBC Routine 09/17/2016 8:21 AM EST TSH Routine 09/17/2016 8:21 AM EST T4, FREE Routine 09/17/2016 8:21 AM EST LIPID PANEL Routine 09/17/2016 8:21 AM EST COMPREHENSIVE METABOLIC PANEL Routine 09/17/2016 8:21 AM EST documented in this encounter Results * TSH (09/17/2016 8:21 AM EST) TSH 2.70 0.50 - 6.00 uIU/mL [facility] 09/17/2016 8:21 AM EST 09/17/2016 8:25 AM EST Narrative [facility] - 09/17/2016 11:20 AM EST Joe Delaney MD LAB BLOOD ORDERABLES Performing Organization Address City/[facility]/ZIP Co de Phone Number AP DIAZ [address] [facility]. [place], [place] [phone] * T4, free (09/17/2016 8:21 AM EST) Free T4 1.05 0.75 - 1.54 ng/dL [facility] 09/17/2016 8:21 AM EST 09/17/2016 8:25 AM EST Narrative [facility] - 09/17/2016 11:20 AM EST Joe Delaney MD LAB BLOOD ORDERABLES Performing Organization Address [facility] Co de Phone Number NITA JOE [address] [facility]. [place], [place] [phone] * (ABNORMAL) CBC (09/17/2016 8:21 AM EST) WBC 5.2 4.8 - 10.8 10*3/mm3 [facility] RBC 5.6 4.7 - 6.1 10*6/mm3 [facility] Hemoglobin 13.4(L) 14.0 - 18.0 g/dL [facility] Hematocrit 41.4(L) 42.0 - 52.0 % [facility] MCV 73.50(L) 80.00 - 94.0 fL [facility] MCH 23.8(L) 26.0 - 34.0 pg [facility] MCHC 32.4 32.0 - 36.0 G/DL [facility] RDW 15.6 9.1 - 17.5 % [facility] Platelets 296 130 - 400 10*3/mm3 [facility] MPV 10.6 6.4 - 13.3 fL [facility] Neutrophils % 54.80 42.20 - 75.2 % [facility] Neutrophils Absolute 2.86 1.40 - 6.50 10*3/mm3 [facility] Lymphocytes Relative 33.50 20.50 - 51.1 % [facility] Lymphocytes Absolute 1.75 1.20 - 3.40 10*3/mm3 [facility] Monocytes Relative 10.00(H) 1.70 - 9.30 % [facility] Monocytes Absolute 0.52(H) 0.10 - 0.50 10*3/mm3 [facility] Eosinophils Relative 1.30 0.00 - 10.00 % [facility] Eosinophils Man 0.07 0.00 - 0.70 10*3/mm3 [facility] Basophils Relative 0.40 0.00 - 2.00 % [facility] Basophils Absolute 0.02 0.00 - 0.30 10*3/mm3 [facility] 09/17/2016 8:21 AM EST 09/17/2016 8:25 AM EST Narrative [facility] - 09/17/2016 9:32 AM EST Joe Delaney MD LAB BLOOD ORDERABLES FREQUENCY AP DIAZ [address] [place], [place] [phone] * (ABNORMAL) Comprehensive metabolic panel (09/17/2016 8:21 AM EST) GLUCOSE 87 70 - 105 mg/dL [facility] Urea nitrogen 8 7 - 25 mg/dL [facility] Creatinine 1.0 0.6 - 1.3 mg/dL [facility] Calcium 10.1 8.6 - 10.3 mg/dL [facility] Total Protein 7.1 6.4 - 8.9 g/dL [facility] Albumin 4.6 3.5 - 5.7 g/dL [facility] Bilirubin, Total 0.37 0.30 - 1.00 mg/dL [facility] Alk Phos, Total 92 34 - 104 U/L [facility] AST 25 15 - 39 U/L [facility] Sodium 140 136 - 145 mmol/L [facility] Potassium 4.2 3.5 - 5.1 mmol/L [facility] Chloride 102 98 - 107 mmol/L [facility] CO2 32.3(H) 21.0 - 31.0 mmol/L [facility] ALT 33 7 - 52 U/L [facility] Anion Gap 10 5 - 19 [facility] BUN/Creatinine Ratio 7.8 6.0 - 20.0 [facility] GFR > 60 >60 ml/min/1.7 3mGF [facility] Comment:If patient is Radha n English multiply result by 1.212 Alb/Glob ratio 1.8 1.2 - 1.8 [facility] Globulin 2.5 1.6 - 3.9 g/dL [facility] 09/17/2016 8:21 AM EST 09/17/2016 8:25 AM EST Narrative [facility] - 09/17/2016 9:16 AM EST Joe Delaney MD LAB BLOOD ORDERABLES Performing Organization Address City/State/[facility] Co ms Phone Number [facility] [address] [facility]. [place], [place] [phone] * Lipid panel (09/17/2016 8:21 AM EST) Cholesterol 169 136 - 200 mg/dL [facility] Comment: Cholesterol Risk Levels ? Recommended under 200mg/dl ? Borderline ?200-239mg/dl ? High Risk ? above ??240mg/dl Triglycerides 122 48 - 200 mg/dL [facility] HDL 41 35 - 92 mg/dL [facility] LDL Cholesterol 104 0 - 140 mg/dL [facility] Chol/HDL Ratio 4.2 3.4 - 24.0 [facility] Total Svy-HVP-Mfrp (LDL+VLDL) 128.5 30.0 - 130.0 mg/dl [facility] 09/17/2016 8:21 AM EST 09/17/2016 8:25 AM EST Narrative [facility] - 09/17/2016 9:16 AM EST Fasting 8-10 hours, can have water, black coffee, black tea. No cream, No sugar ~From the start date you can goto the lab any day that week. If you use our lab, you do not need to bring lab slip with you. ?? ~Our lab opens at 7:30 am M-F, and 9 am on Sat and Sun. Joe Delaney MD LAB BLOOD ORDERABLES AP [facility] [address] [facility]. [place], [place] [phone] documented in this encounter Visit Diagnoses Not on filedocumented in this encounter Additional Health Concerns Infection Onset Date Last Indicated Resolved Time COVID-19 Rule Out Comment:04/29/2020 Negative (PAT) 02/20/2020 COVID19 NEGATIVE (PAT) 02/23/2020 02/23/2020 02/23/2020 10:42 AM EDT documented as of this encounter Care Teams Rental Sales Representative Relationship Specialty Start Date End Date Joe Delaney MD [address] [place], [place] [phone] PCP - General Internal Medicine 11/17/18 [place] [address] [place] [address] Referring Physician Internal Medicine 11/17/18 Wan Rodríguez [facility] [place] [phone] 06/02/19 Rozina Petersen MD Gastroenterology 03/30/20 documented as of this encounter
--- OUTSIDE RECORDS SUMMARY | 2024-12-18 10:49 | XMS_ITS | Encounter Summary ---
Author Organization [facility] Address [address] [place] [address] Phone Care Team Providers Care Cad Draftsman Name Role Phone Joe Delaney MD Primary Care Provider Twan Davis MD Unavailable [phone] Wan Rodríguez Unavailable [phone] Rozina Petersen MD Unavailable Encounter Details Date Type Department Care Team Description 05/23/2022 Email from [facility] Internal Medicine [address] [place] [phone] Joe Delaney MD [address] [place] [address] Social History Tobacco Use Types Packs/Day [...] suspected to have Coronavirus/COVID-19? No / Unsure 05/08/2022 9:10 AM EDT documented as of this encounter Plan of Treatment Upcoming Encounters Date Type Specialty Care Team Description 01/25/2025 Office Visit Internal Medicine Joe Delaney MD [address] [place] [address] 02/03/2025 Office Visit Pain Medicine Patricia Sotelo PA [address] [place], [place] [phone] documented as of this encounter Visit Diagnoses Not on filedocumented in this encounter Care Teams Cad Draftsman Relationship Specialty Start Date End Date Joe Delaney MD [address] [place] [address] PCP - General Internal Medicine 11/17/18 [place] [address] [place] [address] Referring Physician Internal Medicine 11/17/18 Wan Rodríguez [facility] [place] [address] 06/02/19 Rozina Petersen MD Gastroenterology 03/30/20 documented as of this encounter
--- OUTSIDE RECORDS SUMMARY | 2024-12-18 10:49 | XMS_ITS | Encounter Summary ---
Author Organization [facility] Address [address] [place] [address] Phone Care Team Providers Care Cardiac Cath Lab Technologist Name Role Phone Joe Delaney MD Primary Care Provider Twan Davis MD Unavailable [phone] Wan Rodríguez Unavailable Rozina Petersen MD Unavailable Encounter Details Date Type Department Care Team Description 05/10/2016 Conversion Internal Medicine [address] [place] [address] Joe Delaney MD [address] [place], [place] [phone] Social History Tobacco Use Types Packs/Day Years Used Date Smoking Tobacco: Never Assessed Sex Assigned at Date Recorded Male 03/28/2020 2:09 AM E DT Job Start Date Occupation Industry Not on file Not on file Not on file documented as of this encounter Plan of Treatment Upcoming Encounters Date Type Specialty Care Team Description 01/25/2025 Office Visit Internal Medicine Joe Delaney MD [address] [place], [place] [phone] 02/03/2025 Office Visit Pain Medicine Patricia Sotelo PA [address] [place] [address] documented as of this encounter Procedures Procedure Name Priority Date/Time Associated Diagnosis Comments PSA Routine 05/10/2016 8:08 AM EDT COMPREHENSIVE METABOLIC PANEL Routine 05/10/2016 8:08 AM EDT documented in this encounter Results * (ABNORMAL) PSA (05/10/2016 8:08 AM EDT) PSA, total 8.96(H) 0.00 - 4.00 ng/mL [facility] Comment: Serum concentrations, regardless of value, should not be interpreted as absolute evidence for the presence or absence of malignant disease. [employer] GPal methodology. ??Values obtained with different methods or kits cannot be used interchangeably. 05/10/2016 8:0 8 AM EDT 05/10/2016 8:15 AM EDT Narrative [facility] - 05/10/2016 10:30 AM EDT Bloodwork is non-fasting. ~From the start date you can goto the lab any day that week. If you use our lab, you do not need to bring lab slip with you. ?? ~DO IN AM Joe Delaney MD LAB BLOOD ORDERABLES [facility] [address] [facility] [place], [place] [phone] * Comprehensive metabolic panel (05/10/2016 8:08 AM EDT) GLUCOSE 84 70 - 105 mg/dL [facility] Urea nitrogen 11 7 - 25 mg/dL [facility] Creatinine 0.9 0.6 - 1.3 mg/dL [facility] Calcium 9.8 8.6 - 10.3 mg/dL [facility] Total Protein 6.8 6.4 - 8.9 g/dL [facility] Albumin 4.4 3.5 - 5.7 g/dL [facility] Bilirubin, Total 0.62 0.30 - 1.00 mg/dL [facility] Alk Phos, Total 77 34 - 104 U/L [facility] AST 20 15 - 39 U/L [facility] Sodium 137 136 - 145 mmol/L [facility] Potassium 4.1 3.5 - 5.1 mmol/L [facility] Chloride 104 98 - 107 mmol/L [facility] CO2 28.5 21.0 - 31.0 mmol/L [facility] ALT 21 7 - 52 U/L [facility] Anion Gap 9 5 - 19 [facility] BUN/Creatinine Ratio 11.7 6.0 - 20.0 [facility] GFR > 60 >60 ml/min/1.7 3mGF [facility] Comment:If patient is Radha n Italian multiply result by 1.212 Alb/Glob ratio 1.8 1.2 - 1.8 [facility] Globulin 2.4 1.6 - 3.9 g/dL [facility] 05/10/2016 8:08 AM EDT 05/10/2016 8:15 AM EDT Narrative [facility] - 05/10/2016 10:20 AM EDT Bloodwork is non-fasting. ~From the start date you can goto the lab any day that week. If you use our lab, you do not need to bring lab slip with you. ?? ~DO IN AM Joe Delaney MD LAB BLOOD ORDERABLES AP DIAZ [address] [place] [address] documented in this encounter Visit Diagnoses Not on filedocumented in this encounter Additional Health Concerns Infection Onset Date Last Indicated Resolved Time COVID-19 Rule Out Comment:04/29/2020 Negative (PAT) 02/20/2020 COVID19 NEGATIVE (PAT) 02/23/2020 02/23/2020 02/23/2020 10:42 AM EDT documented as of this encounter Care Teams Cardiac Cath Lab Technologist Relationship Specialty Start Date End Date Joe Delaney MD [address] [place] [address] PCP - General Internal Medicine 11/17/18 [place] [address] [place] [address] Referring Physician Internal Medicine 11/17/18 Wan Rodríguez [facility] Vlad Katz [facility] [place] [address] 06/02/19 Rozina Petersen MD Gastroenterology 03/30/20 documented as of this encounter
--- OUTSIDE RECORDS SUMMARY | 2024-12-18 10:50 | XMS_ITS | Encounter Summary ---
Author Organization [facility] Address [address] [place] [address] Phone Care Team Providers Care Supervisor [employer] Name Role Phone Joe Delaney MD Primary Care Provider Twan Davis MD Unavailable [phone] Wan Rodríguez Unavailable [phone] Rozina Petersen MD Unavailable Encounter Details Date Type Department Care Team Description 10/22/2016 [facility] Information Management - Release of Information [address] [place] [phone] Penny Yousif [address] [place] [phone] Social History Tobacco Use Types Packs/Day Years Used Date Smoking Tobacco: Never Assessed Sex Assigned at Date Recorded Male 03/28/2020 2:09 AM E DT Job Start Date Occupation Industry Not on file Not on file Not on file documented as of this encounter Progress Notes * Penny Yousif - 10/22/2016 12:14 PM EDT Supervising Physician: Ubaldo Valerio MD History of Present Illness Referral source: Joe Delaney MD History from: patient Reason for visit: Follow-up Chief Complaint: Follow-up visit Comments: Fred is present for a routine follow-up visit. Last office visit was June 07, 2016 for an evaluation of a TIA. No further episodes of dizziness, or anything similar since last visit. It was unclear at that time whether or not he had an actual transient ischemic attack, versus an episode of dizziness. Since his last visit, he reports he continues to have bouts of atrial fibrillation, and concerns with his short-term memory. He reports that he has been more forgetful, needing to be reminded more often. He reports he has a good appetite, eats well, sleeps well, still going to the gym several times a week. He had his left cataract removed since his last visit, as well as a hemorrhoidectomy. He thinks that the dizziness occurred because he had not been eating enough protein, however diet more stable now. Underlying anxiety???good days and bad days. He did not end up taking the Paxil due to concerns with the interaction of his other medications, cardiac concerns. Past Medical History(reviewed history from 09/20/2016- no changes required): Thyroid nodules. Htn. Elev PSA. . Back Pain.A-fib. . Gerd. Allergic rhinitis. BPH. Past Surgical History (reviewed history from 07/08/2014 - no changes required): Tonsillectomy, childhood; . [place] teeth extracted;. Dental implants. . Prost bx. Family History reviewed - no changes required Additional comments:Mother age 88, kidney cancer, hysterectomy, breast cancer, cancerous colonpolyp. Father is , at age 83, [place] suspected. Had high PSA but not Ca. 1 brother is alive and well. 1 sister is alive and well. Social History (reviewed history from 09/20/2016 - no changes required): Marital Status: . . Number of Children: 3. Place of : [place]. 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 Sleep History: 6-8 hrs;. Travel History: [place];. Tobacco use: never smoker. Passive smoke exposure: no. Alcohol use:yes. Alcohol use Frequency:social. Drug use: never. HIV high risk behavior: no. Caffeine use (drinks/day): 3. Exercise (times/week): 3. Seatbelt use (%): 100. 2 cats (for 2 years), a dog. . Medications: (prior to this visit) - verified by patient or patient direct marketing representative LOSARTAN POTASSIUM 100 MG TABS (LOSARTAN POTASSIUM) one po qd XARELTO 20 MG TABS (RIVAROXABAN) one po qd ACIPHEX 20 MG TBEC (RABEPRAZOLE SODIUM) one po qd FLECAINIDE ACETATE 50 MG TABS (FLECAINIDE ACETATE) 1.5 tabs po bid PROPRANOLOL HCL 10 MG TABS (PROPRANOLOL HCL) one po prn for A Fib. CARAFATE 1 GM/10ML SUSP (SUCRALFATE) one gram po tid. ANUSOL-HC 2.5 % CREA (HYDROCORTISONE) apply litely to hemorrhoids after warm sitz bath qd LIDOCAINE-PRILOCAINE 2.5-2.5 % CREA (LIDOCAINE-PRILOCAINE) Apply to area of thyroid at least 1 hourprior to procedure. Allergies: PCN (Moderate) AMLODIPINE BESYLATE(AMLODIPINE BESYLATE) (Moderate) PENICILLIN (Moderate) Review of Systems General: Denies fevers, chills, sweats, anorexia, fatigue, malaise, weight loss, weight gain, headache, problems sleeping. Eyes: Denies blurring. Ears/Nose/Throat: Denies decreased hearing. Cardiovascular: Complains of palpitations. Denies chest pains. Gastrointestinal: Denies change in bowel habits. Neurologic: Complains of memory loss. Denies transient paralysis, weakness, paresthesias, seizures,syncope, tremors, vertigo, problems with balance, headache, migraine, numbness, speech difficulty, confusion. Psychiatric: Complains of anxiety. Denies mental disturbance. Allergic/Immunologic: Denies persistent infections. Vital Signs Entered weight: 222 lb. Calculated weight: 222 lb. (100.91kg.) Height: 74in.(187.96cm.) Blood Pressure: 138/88 Pulse Rate: 66 Pulse rhythm: regular Respirations: 14 Body Mass Index in-lb BMI (in-lb) 28.61 Physical Exam Appearance: no acute distress General comments: Alert, cooperative, speech is clear. Good eye contact and hygiene. Pleasant in conversation. He follow through with directions. Skin: warm and dry Head: normocephalic Head comments: Symmetrical in appearance. There is no TTP of scalp, bi- temporals, occipital, or craniocervical junction ENT (ears): L normal/clear, R normal/clear ENT (mouth and throat): pharynx w/o inflammation, dentition good Neck: supple, no pain/tenderness with palpation Respiratory: air entry adequate, equal air expansion, clear to auscultationNL S1/S2, no murmurs, temporal pulses palpable, radial pulses palpable Mental Status Exam -Orientation: oriented to time/place/person -Memory: intact for recent and remote events -Language: no aphasia -Fund of knowledge: able to name months/seasons/current president Eyes -Visual ponce: grossly intact by confrontation -Ophthalmoscopic: discs sharp and flat, no a/v nicking, no hemorrhages, no exudates -Posterior segments: vitreous normal, retina normal, vessels normal -Pupils: equal, round, reactive to light, accommodation -EOM: extraocular movements intact, normal gaze alignment Canial Nerves -7th (Facial): no weakness -11th (Spinal access): no atrophy, normal strength bilaterally -12th (Hypoglossal): tongue midline on protrusion, no fasciculations Musculoskeletal -Gait and station: normal -RUE muscle strength: normal -RUE muscle tone: normal -LUE muscle strength: normal -LUE muscle tone: normal -RLE muscle strength: normal -RLE muscle tone: normal -LLE muscle strength: normal -LLE muscle tone: normal Neurologic -DTR: 1+ symmetric -Sensation: intact to touch, intact to temperature. Romberg's sign negative. -Coordination: normal [id number] Assessment Problems: Assessed ANXIETY as improved - Penny Yousif RPA-C - Signed Assessed AURAS as improved - Penny Yousif RPA-C - Signed SYMPTOM, MEMORY LOSS (ICD-780.93) ([id number]) Comments: This is a 66-year-old man with symptoms of memory loss, or as as improved, underlying anxiety with good and bad days, overall improved. Plan Comments: Case discussed with Dr. Valerio. Continue to monitor, perrecommendation. We will suggest getting methylmalonic acid levels for further evaluation of memory concerns. Discussed memory troubles, lifestyle changes, all questions answered. Follow-up in 6 months or sooner should the need arise. If any TIA or strokelike symptoms, sudden weakness or difficulty speech, swallowing???go to the emergency room. If any panic attacks, worsening of anxiety, let us or primary care provider now. New Orders: SNOMED-CT: [id number] Patient Encounter for Meaningful Use [[id number]] Methylmalonic Acid [[id number]] Disposition: return to clinic in 6 months Injections Medication List Reviewed Allergy List Reviewed Please note, this documentation has been converted into the [employer] EHR from our [employer] EMR forinformational purposes only. This documentation must not be released or used for legal purposes as the note is missing the responsible provider???s signature. A copy of the legal medical record can be obtained or printed only from the [employer] EMR. documented in this encounter Plan of Treatment Upcoming Encounters Date Type Specialty Care Team Description 01/25/2025 Office Visit Internal Medicine Joe Delaney MD [address] [place], [place] [phone] 02/03/2025 Office Visit Pain Medicine Patricia Sotelo PA [address] [place], [place] [phone] documented as of this encounter Visit Diagnoses Not on filedocumented in this encounter Additional Health Concerns Infection Onset Date Last Indicated Resolved Time COVID-19 Rule Out Comment:04/29/2020 Negative (PAT) 02/20/2020 COVID19 NEGATIVE (PAT) 02/23/2020 02/23/2020 02/23/2020 10:42 AM EDT documented as of this encounter Care Teams Supervisor [employer] Relationship Specialty Start Date End Date Joe Delaney MD [address] [place] [address] PCP - General Internal Medicine 11/17/18 [place] [address] [place] [address] Referring Physician Internal Medicine 11/17/18 Wan Rodríguez Replaced By [facility] Vlad Katz [facility] [place] [address] 06/02/19 Rozina Petersen MD Gastroenterology 03/30/20 documented as of this encounter
--- OUTSIDE RECORDS SUMMARY | 2024-12-18 10:50 | XMS_ITS | Encounter Summary ---
Author Organization [facility] Address [address] [place] [address] Phone Care Team Providers Care Dry Paste Supervisor Name Role Phone Joe Delaney MD Primary Care Provider Twan Davis MD Unavailable [phone] Wan Rodríguez Unavailable [phone] Rozina Petersen MD Unavailable Encounter Details Date Type Department Care Team Description 12/27/2015 Conversion Internal Medicine [address] [place] [phone] Joe Delaney MD [address] [place], [place] [phone] Social History Tobacco Use Types Packs/Day Years Used Date Smoking Tobacco: Never Assessed Sex Assigned at Date Recorded Male 03/28/2020 2:09 AM E DT Job Start Date Occupation Industry Not on file Not on file Not on file documented as of this encounter Procedure Notes * Joe Delaney MD - 12/27/2015 4:00 AM EDTAssociated Order(s): IMAGING SCAN LINK SLCT HEAD STROKE PROTOCOL CT SCAN EMERGENCY DEPARTMENT FINAL REPORT NAME: DILIP SOLANO : 1950 AGE: [age] year old ACCT: [id number] MR: [id number] ATTENDING : GROUP ED PROVIDERMD ROOM: ED ORDERING: AMINA SNYDER MD DATE: 12/27/2015 04:32 P EXAM: SLCT HEAD STROKE PROTOCOL ACCN: [id number] CT brain stroke protocol. CLINICAL HISTORY: Dizziness for one hour. Slurred vision. No pain. Acute presentation. Initial encounter. Serial axial CT images through the brain were presented without intravenous contrast ministration. Multiplanar including sagittal and coronal reformatted images are presented. Correlation is made with a CT examination of the brain dated 12/22/2010. The cortical sulcal pattern is stable and in the range of normal. There is no ventriculomegaly. There is no mass or mass effect. There is no midline shift. No subdural or epidural collection is identified. There is normal alvarez-white matter differentiation without territorial infarct noted. On the sagittal reformatted images, no sellar or suprasellar lesion is seen. The craniocervical junction false and the range of normal. Evaluation of the paranasal sinuses demonstrates no mucosal thickening or air-fluid levels seen. The mastoid air cells are well aerated. The internal auditory canals are symmetric. IMPRESSION: No acuteintracranial pathology. Specifically, no hemorrhage. No mass or mass effect. No territorial infarct. Follow-up CT exam both prior to and following intravenous contrast and/or MRI would provide a more sensitive neuroimaging assessment in the appropriate clinical setting particularly if there is clinical concern for evolving infarct. Report was conveyed to the ER at the time of this dictation. Electronically Signed by Gama Gutierrez MD 12/27/2015 4:42 PM pse P DL: [id number] P cc: REVIEWED ONLY Please note, this documentation has been converted into the [employer] EHR from our [employer] EMR forinformational purposes only. This documentation must not be released or used for legal purposes as the note is missing the responsible provider???s signature. A copy of the legal medical record can be obtained or printed only from the [employer] EMR. documented in this encounter Plan of Treatment Upcoming Encounters Date Type Specialty Care Team Description 01/25/2025 Office Visit Internal Medicine Joe Delaney MD [address] [place] [address] 02/03/2025 Office Visit Pain Medicine Patricia Sotelo PA [address] [place] [address] documented as of this encounter Procedures Procedure Name Priority Date/Time Associated Diagnosis Comments IMAGING SCAN 12/27/2015 4:00 AM EDT documented in this encounter Results * IMAGING SCAN LINK (12/27/2015 4:00 AM EDT) Anatomical Region Laterality Modality Other Procedure Note Joe Delaney MD - 12/27/2015 4:00 AM EDT SLCT HEAD STROKE PROTOCOL CT SCAN EMERGENCY DEPARTMENT FINAL REPORT NAME: DILIP SOLANO : 1950 AGE: [age] year old ACCT: [id number] MR: [id number] ATTENDING : GROUP ED PROVIDERMD ROOM: ED ORDERING: AMINA SNYDER MD DATE: 12/27/2015 04:32 P EXAM: SLCT HEAD STROKE PROTOCOL ACCN: [id number] CT brain stroke protocol. CLINICAL HISTORY: Dizziness for one hour. Slurred vision. No pain.Acute presentation. Initial encounter. Serial axial CT images through the brain were presented withoutintravenous contrast ministration. Multiplanar including sagittal and coronal reformatted images are presented. Correlation is made with a CT examination of the brain dated 12/22/2010. The cortical sulcal pattern is stable and in the range of normal. Thereis no ventriculomegaly. There is no mass or mass effect. There is nomidline shift. No subdural or epidural collection is identified. There isnormal alvarez-white matter differentiation without territorial infarct noted. On the sagittal reformatted images, no sellar or suprasellar lesion is seen. The craniocervical junction false and the range of normal. Evaluation of the paranasal sinuses demonstrates no mucosal thickeningor air-fluid levels seen. The mastoid air cells are well aerated. The internal auditory canals are symmetric. IMPRESSION: No acuteintracranial pathology. Specifically, nohemorrhage. No mass or mass effect. No territorial infarct. Follow-up CT exam both prior to and following intravenous contrast and/or MRI would provide hussein sensitive neuroimaging assessment in the appropriate clinical setting particularly if there is clinical concern for evolving infarct. Report was conveyed to the ER at the time of this dictation. Electronically Signed by Gama Gutierrez MD 12/27/2015 4:42 PM pse P DL: [id number] P cc: REVIEWED ONLY Please note, this documentation has been converted into the [employer] EHR fromour [employer] EMR for informational purposes only. This documentationmust not be released or used for legal purposes as the note is missing theresponsible provider? s signature. A copy of the legal medical record canbe obtained or printed only from the [employer] EMR. Joe Delaney MD HEALTH MAINTENANCE documented in this encounter Visit Diagnoses Not on filedocumented in this encounter Additional Health Concerns Infection Onset Date Last Indicated Resolved Time COVID-19 Rule Out Comment:04/29/2020 Negative (PAT) 02/20/2020 COVID19 NEGATIVE (PAT) 02/23/2020 02/23/2020 02/23/2020 10:42 AM EDT documented as of this encounter Care Teams Dry Paste Supervisor Relationship Specialty Start Date End Date Joe Delaney MD [address] [place] [address] PCP - General Internal Medicine 11/17/18 [place] [address] [place] [address] Referring Physician Internal Medicine 11/17/18 Wan Rodríguez [facility] [place] [address] 06/02/19 Rozina Petersen MD Gastroenterology 03/30/20 documented as of this encounter
--- OUTSIDE RECORDS SUMMARY | 2024-12-18 10:50 | XMS_ITS | Encounter Summary ---
Author Organization [facility] Address [address] [place] [address] Phone Care Team Providers Care Mechanical Fitter Name Role Phone Joe Delaney MD Primary Care Provider [phone] Twan Davis MD Unavailable [phone] Wan Rodríguez Unavailable [phone] Rozina Petersen MD Unavailable Encounter Details Date Type Department Care Team Description 08/12/2023 Email from [employer] Internal Medicine [address] [place] [phone] Joe Delaney MD [address] [place] [address] Social History Tobacco Use Types Packs/Day [...] suspected to have Coronavirus/COVID-19? No / Unsure 07/26/2023 10:44 AM EST documented as of this encounter Plan of Treatment Upcoming Encounters Date Type Specialty Care Team Description 01/25/2025 Office Visit Internal Medicine Joe Delaney MD [address] [place] [address] 02/03/2025 Office Visit Pain Medicine Patricia Stoelo PA [address] [place], [place] [phone] documented as of this encounter Visit Diagnoses Not on filedocumented in this encounter Care Teams Mechanical Fitter Relationship Specialty Start Date End Date Joe Delaney MD [address] [place] [address] PCP - General Internal Medicine 11/17/18 [place] [address] [place] [address] Referring Physician Internal Medicine 11/17/18 Wan Rodríguez [facility] [place] [phone] 06/02/19 Rozina Petersen MD Gastroenterology 03/30/20 documented as of this encounter
--- OUTSIDE RECORDS SUMMARY | 2024-12-18 10:50 | XMS_ITS | Encounter Summary ---
Author Organization [facility] Address [address] [place] [address] Phone Care Team Providers Care Software Reverse Engineer Name Role Phone Joe Delaney MD Primary Care Provider [phone] Twan Davis MD Unavailable [phone] Wan Rodríguez Unavailable [phone] Rozina Petersen MD Unavailable Reason for Visit * Reason Comments Other Encounter Details Date Type Department Care Team Description 12/13/2024 Refill Internal Medicine [address] [place] [phone] [place] [address] [place] [address] Essential hypertension; Paroxysmal atrial fibrillation Social History Tobacco Use Types Packs/Day Years [...] suspected to have Coronavirus/COVID-19? No / Unsure 12/07/2024 8:38 AM EDT documented as of this encounter Miscellaneous Notes * Telephone Encounter - Cecy Whitten LPN - 12/14/2024 10:56 AM EDT Last:09/22/2024-dcg Next:01/25/2025-dcg Signature: Cecy Whitten LPN Date: December 14, 2024 Time: 10:56 AM documented in this encounter Plan of Treatment Upcoming Encounters Date Type Specialty Care Team Description 01/25/2025 Office Visit [place] [address] [place] [phone] 02/03/2025 Office Visit [place] [address] [place] [address] [phone] documented as of this encounter Visit Diagnoses Diagnosis Essential hypertension Unspecified essential hypertension Paroxysmal atrial fibrillation Atrial fibrillation documented in this encounter Care Teams Software Reverse Engineer Relationship Specialty [place] [address] [place] [address] [phone] PCP - General Internal Medicine 11/17/18 [place] [address] [place] [address] Referring Physician Internal Medicine 11/17/18 Wan Rdoríguez [facility] [place] [phone] 06/02/19 Rozina Petersen MD Gastroenterology 03/30/20 documented as of this encounter
--- OUTSIDE RECORDS SUMMARY | 2024-12-18 10:50 | XMS_ITS | Encounter Summary ---
Author Organization [facility] Address [address] [place] [address] Phone Care Team Providers Care Care Management Assistant Name Role Phone Joe Delaney MD Primary Care Provider [phone] Twan Davis MD Unavailable [phone] Wan Rodríguez Unavailable [phone] Rozina Petersen MD Unavailable Encounter Details Date Type Department Care Team Description 12/14/2015 Conversion Internal Medicine [address] [place] [phone] Peyton Darling NP [address] [place] [address] Social History Tobacco Use Types Packs/Day Years Used Date Smoking Tobacco: Never Assessed Sex Assigned at Date Recorded Male 03/28/2020 2:09 AM E DT Job Start Date Occupation Industry Not on file Not on file Not on file documented as of this encounter Progress Notes * Peyton Darling NP - 12/14/2015 10:57 AM EDT Phone Note Caller's Name: thaddeus from [facility] Call Details: Thaddeus from [facility] called. Additional comments: Caller wants pre op clearance and ekg faxed to [phone] Please advise thank you. Emili Curtis LPN December 14, 2015 10:57 AM . Taken by: Emili Curtis LPN on December 14, 2015 10:57 AM DCG to review and sign off. Please note, this documentation has been converted into the Epic EHR from our [employer] EMR forinformational purposes only. This documentation must not be released or used for legal purposes as the note is missing the responsible provider???s signature. A copy of the legal medical record can be obtained or printed only from the [employer] EMR. pre op faxed to above number. Please note, this documentation has been converted into the Epic EHR from our [employer] EMR forinformational purposes only. This documentation must not be released or used for legal purposes as the note is missing the responsible provider???s signature. A copy of the legal medical record can be obtained or printed only from the [employer] EMR. documented in this encounter Plan of Treatment Upcoming Encounters Date Type Specialty Care Team Description 01/25/2025 Office Visit Internal Medicine Joe Delaney MD [address] [place] [phone] 02/03/2025 Office Visit Pain Medicine Patricia Sotelo PA [address] [place] [address] documented as of this encounter Visit Diagnoses Not on filedocumented in this encounter Additional Health Concerns Infection Onset Date Last Indicated Resolved Time COVID-19 Rule Out Comment:04/29/2020 Negative (PAT) 02/20/2020 COVID19 NEGATIVE (PAT) 02/23/2020 02/23/2020 02/23/2020 10:42 AM EDT documented as of this encounter Care Teams Care Management Assistant Relationship Specialty Start Date End Date Joe Delaney MD [facility] [place] [address] PCP - General Internal Medicine 11/17/18 [place] [address] [place] [address] Referring Physician Internal Medicine 11/17/18 Wan Rodríguez [facility] [place] [address] 06/02/19 Rozina Petersen MD Gastroenterology 03/30/20 documented as of this encounter
--- OUTSIDE RECORDS SUMMARY | 2024-12-18 10:50 | XMS_ITS | Encounter Summary ---
Author Organization [facility] Address [address] [place] [address] Phone Care Team Providers Care Personal Fitness Manager Name Role Phone Joe Delaney MD Primary Care Provider [phone] Twan Davis MD Unavailable [phone] Wan Rodríguez Unavailable [phone] Rozina Petersen MD Unavailable Encounter Details Date Type Department Care Team Description 02/14/2021 Email from [facility] Orthopedics [address] [place] [phone] Kimberly Herndon PA [address] [place] [address] [phone] Social History Tobacco Use Types Packs/Day Years [...] Visit Internal Medicine Joe Delaney MD [address] [place], [place] [phone] 02/03/2025 Office Visit Pain Medicine Patricia Sotelo PA [address] [place], [place] [phone] documented as of this encounter Visit Diagnoses Not on filedocumented in this encounter Care Teams Personal Fitness Manager Relationship Specialty Start Date End Date Joe Delaney MD [address] [place] [address] PCP - General Internal Medicine 11/17/18 Twan Davis MD [address] [place] [address] Referring Physician Internal Medicine 11/17/18 Wan Rodríguez [facility] [place] [address] 06/02/19 Rozina Petersen MD Gastroenterology 03/30/20 documented as of this encounter
--- OUTSIDE RECORDS SUMMARY | 2024-12-18 10:50 | XMS_ITS | Encounter Summary ---
Author Organization [facility] Address [address] [place] [address] Phone Care Team Providers Care Cyber Security Consultant Name Role Phone Joe Delaney MD Primary Care Provider [phone] Twan Davis MD Unavailable [phone] Wan Rodríguez Unavailable Rozina Petersen MD Unavailable Encounter Details Date Type Department Care Team Description 08/17/2020 Orders Only Internal Medicine [address] [place] [phone] Joe Delaney MD [address] [place] [address] [phone] Multiple thyroid nodules; Paroxysmal atrial fibrillation; Essential hypertension; GERD without esophagitis Social History Tobacco Use [...] Office Visit Internal Medicine Joe Delaney MD [address] [place] [address] [phone] 02/03/2025 Office Visit Pain Medicine Patricia Sotelo PA [address] [place] [address] documented as of this encounter Procedures Procedure Name Priority Date/Time Associated Diagnosis Comments CBC Routine 08/17/2020 8:22 AM EST GERD without esophagitis Paroxysmal atrial fibrillation TSH Routine 08/17/2020 8:22 AM EST Multiple thyroid nodules Paroxysmal atrial fibrillation MAGNESIUM Routine 08/17/2020 8:22 AM EST Essential hypertension COMPREHENSIVE METABOLIC PANEL Routine 08/17/2020 8:22 AM EST Essential hypertension Paroxysmal atrial fibrillation documented in this encounter Results * CBC (08/17/2020 8:22 AM EST) WBC 7.0 4.8 - 10.8 10*3/mm3 [facility] RBC 5.6 4.7 - 6.1 10*6/mm3 [facility] Hemoglobin 16.5 14.0 - 18.0 g/dL [facility] Hematocrit 47.8 42.0 - 52.0 % [facility] MCV 85.50 80.00 - 94.00 fL [facility] MCH 29.5 26.0 - 34.0 pg [facility] MCHC 34.5 32.0 - 36.0 G/DL [facility] RDW 13.4 9.1 - 17.5 % [facility] Platelets 262 130 - 400 10*3/mm3 [facility] MPV 10.7 6.4 - 13.3 fL [facility] Neutrophils Absolute 4.38 1.60 - 6.70 10*3/mm3 [facility] Neutrophils % 62.20 43.10 - 76.10 % [facility] Lymphocytes Absolute 1.88 0.80 - 3.00 10*3/mm3 [facility] Lymphocytes Relative 26.70 12.90 - 43.90 % [facility] Monocytes Absolute 0.68 0.40 - 0.80 10*3/mm3 [facility] Monocytes Relative 9.70 4.90 - 12.50 % [facility] Eosinophils Man 0.08 0.00 - 0.50 10*3/mm3 [facility] Eosinophils Relative 1.10 0.00 - 5.00 % [facility] Basophils Absolute 0.02 0.00 - 1.00 10*3/mm3 [facility] Basophils Relative 0.30 0.00 - 2.00 % [facility] Blood 08/17/2020 8:22 AM EST 08/17/2020 8:25 AM EST Joe Delaney MD LAB BLOOD ORDERABLES FREQUENCY [facility] [address] [place], [place] [phone] * (ABNORMAL) Comprehensive metabolic panel (08/17/2020 8:22 AM EST) GLUCOSE 88 70 - 105 mg/dL [facility] Urea nitrogen 8 7 - 25 mg/dL [facility] Creatinine 1.0 0.6 - 1.3 mg/dL [facility] Calcium 10.2 8.6 - 10.3 mg/dL [facility] Total Protein 6.7 6.4 - 8.9 g/dL [facility] Albumin 4.4 3.5 - 5.7 g/dL [facility] Bilirubin, Total 0.80 0.30 - 1.00 mg/dL [facility] Alk Phos, Total 70 34 - 104 U/L [facility] AST 22 15 - 39 U/L [facility] Sodium 139 136 - 145 mmol/L [facility] Potassium 4.6 3.5 - 5.1 mmol/L [facility] Chloride 104 98 - 107 mmol/L [facility] CO2 30.2 21.0 - 31.0 mmol/L [facility] ALT 21 7 - 52 U/L [facility] Anion Gap 9 5 - 19 [facility] BUN/Creatinine Ratio 8.4 6.0 - 20.0 [facility] GFR > 60 >60 ml/min/1.7 3mGF [facility] Comment:If patient is Radha n [place]adian multiply result by 1.212 Alb/Glob ratio 1.9(H) 1.2 - 1.8 [facility] Globulin 2.3 1.6 - 3.9 g/dL [facility] Blood 08/17/2020 8:22 AM EST 08/17/2020 8:25 AM EST Joe Delaney MD LAB BLOOD ORDERABLES Performing Organization Address City[facility] Co de Phone Number AP D[facility] [address] [place], [place] [phone] * Magnesium (08/17/2020 8:22 AM EST) Magnesium 2.00 1.90 - 2.70 mg/dL [facility] Blood 08/17/2020 8:22 AM EST 08/17/2020 8:25 AM EST Joe Delaney MD LAB BLOOD ORDERABLES Performing Organization Address [facility] Co de Phone Number AP DIAZ [address] [place], [place] [phone] * TSH (08/17/2020 8:22 AM EST) TSH 1.81 0.50 - 6.00 uIU/mL [facility] Blood 08/17/2020 8:22 AM EST 08/17/2020 8:25 AM EST Joe Delaney MD LAB BLOOD ORDERABLES Performing Organization Address [facility] Co de Phone Number AP DIA[facility] [address] [place], [place] [phone] documented in this encounter Visit Diagnoses Diagnosis Multiple thyroid nodules Nontoxic multinodular goiter Paroxysmal atrial fibrillation Atrial fibrillation Essential hypertension Unspecified essential hypertension GERD without esophagitis Esophageal reflux documented in this encounter Care Teams Cyber Security Consultant Relationship Specialty Start Date End Date Joe Delaney MD [address] [place] [address] PCP - General Internal Medicine 11/17/18 Twan Davis MD [address] [place] [address] Referring Physician Internal Medicine 11/17/18 Wan Rodríguez [facility] [place] [address] 06/02/19 Rozina Petersen MD Gastroenterology 03/30/20 documented as of this encounter
--- OUTSIDE RECORDS SUMMARY | 2024-12-18 10:50 | XMS_ITS | Encounter Summary ---
Author Organization [facility] Address [address] [place] [address] Phone Care Team Providers Care Customs Import Specialist Name Role Phone Joe Delaney MD Primary Care Provider [phone] Twan Davis MD Unavailable [phone] Wan Rodríguez Unavailable [phone] Rozina Petersen MD Unavailable Reason for Visit * Reason Comments Other Encounter Details Date Type Department Care Team Description 06/05/2023 Refill Internal Medicine [address] [place] [phone] [place] [address] [place] [address] Essential hypertension; Paroxysmal atrial fibrillation Social History [...] suspected to have Coronavirus/COVID-19? No / Unsure 05/20/2023 9:28 AM EDT documented as of this encounter Miscellaneous Notes * Telephone Encounter - Sweta Pack MA - 06/07/2023 8:57 AM EDT Patient sent up appointment for 09.16.23 at 2:00m * Telephone Encounter - Sweta Pack MA - 06/05/2023 9:30 AM EDT Last 01/08/23 Next no future visit documented in this encounter Plan of Treatment Upcoming Encounters Date Type Specialty Care Team Description 01/25/2025 Office Visit Internal Medicine Joe Delaney MD [address] [place] [address] [phone] 02/03/2025 Office Visit [place] [address] [place] [address] documented as of this encounter Visit Diagnoses Diagnosis Essential hypertension Unspecified essential hypertension Paroxysmal atrial fibrillation Atrial fibrillation documented in this encounter Care Teams Customs Import Specialist Relationship Specialty Start Date End Date Joe Delaney MD [address] [place] [address] [phone] PCP - General Internal Medicine 11/17/18 Twan Davis MD [address] [place] [address] Referring Physician Internal Medicine 11/17/18 Wan Rodríguez [facility] [place] [address] 06/02/19 Rozina Petersen MD Gastroenterology 03/30/20 documented as of this encounter
--- OUTSIDE RECORDS SUMMARY | 2024-12-18 10:50 | XMS_ITS | Encounter Summary ---
Author Organization [facility] Address [address] [place] [address] Phone Care Team Providers Care Home Planning Consultant Salesperson Name Role Phone Joe Delaney MD Primary Care Provider Twan Davis MD Unavailable [phone] Wan Rodríguez Unavailable [phone] Rozina Petersen MD Unavailable Encounter Details Date Type Department Care Team Description 02/07/2023 Email from [facility] Orthopedics [address] [place] [phone] Kimberly Herndon PA [address] [place] [address] Social History Tobacco Use Types Packs/Day [...] suspected to have Coronavirus/COVID-19? No / Unsure 01/08/2023 9:25 AM EDT documented as of this encounter Plan of Treatment Upcoming Encounters Date Type Specialty Care Team Description 01/25/2025 Office Visit Internal Medicine Joe Delaney MD [address] [place] [address] 02/03/2025 Office Visit Pain Medicine Patricia Sotelo PA [address] [place], [place] [phone] documented as of this encounter Visit Diagnoses Not on filedocumented in this encounter Care Teams Home Planning Consultant Salesperson Relationship Specialty Start Date End Date Joe Delaney MD [address] [place] [address] PCP - General Internal Medicine 11/17/18 Twan Davis MD [address] [place] [address] Referring Physician Internal Medicine 11/17/18 Wan Rodríguez [facility] [place] [address] 06/02/19 Rozina Petersen MD Gastroenterology 03/30/20 documented as of this encounter
--- OUTSIDE RECORDS SUMMARY | 2024-12-18 10:50 | XMS_ITS | Encounter Summary ---
Author Organization [facility] Address [address] [place] [address] Phone Care Team Providers Care English Composition Teacher Name Role Phone Joe Delaney MD Primary Care Provider [phone] Twan Davis MD Unavailable [phone] Wan Rodríguez Unavailable [phone] Rozina Petersen MD Unavailable Encounter Details Date Type Department Care Team Description 04/13/2017 Conversion Endocrinology [address] [place] [phone] Jayjay Allred MD [address] [place] [address] Social History Tobacco Use Types Packs/Day Years Used Date Smoking Tobacco: Never Assessed Sex Assigned at Date Recorded Male 03/28/2020 2:09 AM E DT Job Start Date Occupation Industry Not on file Not on file Not on file documented as of this encounter Progress Notes * Jayjay Allred MD - 04/13/2017 2:24 AM EDT Clinical List Update Reason for this update: New Order Action taken by: Jayjay Allred MD April 13, 2017 2:24 PM New Orders: T4, FREE [[id number]] - 04/13/2017 TSH [[id number]] - 04/13/2017 Please note, this documentation has been converted into the [employer] EHR from our [place] EMR forinformational purposes only. This documentation must not be released or used for legal purposes as the note is missing the responsible provider???s signature. A copy of the legal medical record can be obtained or printed only from the [facility] EMR. documented in this encounter Plan of Treatment Upcoming Encounters Date Type Specialty Care Team Description 01/25/2025 Office Visit [place] [address] [place] [address] [phone] 02/03/2025 Office Visit Pain Medicine Patricia Sotelo PA [address] [place], [place] [phone] documented as of this encounter Visit Diagnoses Not on filedocumented in this encounter Additional Health Concerns Infection Onset Date Last Indicated Resolved Time COVID-19 Rule Out Comment:04/29/2020 Negative (PAT) 02/20/2020 COVID19 NEGATIVE (PAT) 02/23/2020 02/23/2020 02/23/2020 10:42 AM EDT documented as of this encounter Care Teams English Composition Teacher Relationship Specialty [place] [address] [place] [address] [phone] PCP - General Internal Medicine 11/17/18 [place] [address] [place] [address] Referring Physician Internal Medicine 11/17/18 Wan Rodríguez [facility] [place] [address] 06/02/19 Rozina Petersen MD Gastroenterology 03/30/20 documented as of this encounter
--- OUTSIDE RECORDS SUMMARY | 2024-12-18 10:50 | XMS_ITS | Encounter Summary ---
Author Organization [facility] Address [address] [place] [address] Phone Care Team Providers Care Produce Team Lead Name Role Phone Joe Mensah MD Primary Care Provider [phone] Twan Davis MD Unavailable [phone] Wan Rodríguez Unavailable [phone] Rozina Petersen MD Unavailable Encounter Details Date Type Department Care Team Description 03/27/2017 Conversion Orthopedics [address] [place], [place] [phone] Eleanor Mcfarland PA [address] [place] [address] Social History Tobacco Use Types Packs/Day Years Used Date Smoking Tobacco: Never Assessed Sex Assigned at Date Recorded Male 03/28/2020 2:09 AM E DT Job Start Date Occupation Industry Not on file Not on file Not on file documented as of this encounter Progress Notes * CHANDRA Thompson - 03/27/2017 2:48 AM EDT Supervising Physician: Gama Etienne MD Orthopaedics Office Visit PCP: JOE MENSAH MD Fred is a 66 Years Old male. He presents today for a follow-up on right knee pain. Since the last visit Patient states he is having constant right knee pain. The pain is limiting his daily activities. Patient states he is having swelling with activities. Patient states he has used acupuncture withsome effect but the pain is not going away.. He was not prescribed any medications at the last visit . He was not given any injections the last visit. He has not tried physical therapy. He states thatthe pain is about a 5 out of 10 and is getting worse. The activites that make the pain worse are walking, standing, stairs, getting up from chair, sleeping, and heat/ice/elevation/acupuncture. He hasnot tried any medications for pain relief. He does not have other mucsuloskeletal problems. Pain Scale: 5 Pain relief medications: nonePlan: Past Medical History from 02/19/2017 reviewed - no changes required: Thyroid nodules, Htn. Elev PSA. , A-fib. , Gerd. Allergic rhinitis. BPH. Past Surgical History from 02/19/2017 reviewed - no changes required: Tonsillectomy, childhood; , Dental implants. , Prost bx. Family History from 07/08/2014 reviewed - no changes required: Mother age88, kidney cancer, hysterectomy, breast cancer, cancerous colon polyp. , Father is , at age 83, [place] suspected. Had high PSA but not Ca. , 1 brother is alive and well., 1 sister is alive and well. Medications: (prior to this update) LOSARTAN POTASSIUM 100 MG TABS (LOSARTAN POTASSIUM) one po qd XARELTO 20 MG TABS (RIVAROXABAN) one po qd FLECAINIDE ACETATE 50 MG TABS (FLECAINIDE ACETATE) Pt takes prn for A Fib, not qd PROPRANOLOL HCL 10 MG TABS (PROPRANOLOL HCL) one po prn for A Fib. 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 no Comp Case: no Review of Systems: Fred denies new complaints of fever, weight gain, weight loss, fatigue, night sweats, chest pain, palpations, shortness of breath at rest, shortness of breath after work, numbness, tingling, weakness, confusion, constipation, diarrhea, nausea/vomitting, blood in stool, heartburn, urinary frequency, difficulty urinating, blood in urine, pain with urination, rash, anxiety, depression, swelling in legs, bruising, vision problems, hearing problems medication list verified - done Vital Signs: Weight: 220.80 Height: 74in. BMI (in-lb) 28.45 Fred is a 66 Years Old pleasant male. He is AOx3, of normal build and is in NAD. He does not suffer from poor hearing, labored breathing. The patient walks with a normal gait. Skin temperature is normal on the right side There is no errythema, no scars, no tatoos, no masses,no obvious deformities noted. No swelling is noted. No eccymosis isnoted. Knee Exam: Tenderness: Left Right Joint Line (Medial): moderate Joint Line (Lateral): mild Patellafemoral (Medial): mild Patellafemoral (Lateral): none Effusion: absent Active ROM Left Right Degrees: 0-120+ Pain: no Crepitation: yes Special Tests: Left Right Angelo: neg Cardiovascular: Posterior Tibial pulses are 2+ on the right. Edema is absent on the right. Neuro: Sensation is grossly intact on the right . Assessment of Studies X-Ray: Ordered, Films Reviewed, Report Reviewed: 03/27/17 - Right Knee - moderate DJD most significantly involving the PF joint and medial joint space narrowing New Problems: PRIMARY LOCALIZED OSTEOARTHRITIS OF RIGHT KNEE (ICD-715.16) (XFT01-X75.11) -- KNEE PAIN, RIGHT (ICD-719.46) ([id number]) -- Removed/Resolved Problems: OSTEOARTHRITIS, KNEE, RIGHT (ICD-715.96) (ICD10- M17.9) -- Plan: - Discussed xray findings and treatment options regarding knee OA including weight loss, knee brace, NSAIDS, cortisone, viscosupplementation, PRP injections, and knee replacement surgery when conservative treatment fails. - He is unable to take NSAIDs due to anticoagulation with Xarelto for A. Fib. - Patient opted for cortisone injection given today and felt some immediate relief. - He would like to consider PRP injection in future if needed. - Follow up in 3 months. - Patientinstructed to call with any questions or concerns. Medications List Changes: Removed medication of ANUSOL-HC 2.5 % CREA - Reason: Regimen completed Removed medication of PROPRANOLOL HCL 10 MG TABS - Reason: Regimen completed New Orders: SNOMED-CT: [id number] Patient Encounter for Meaningful Use [[id number]] Fred was given his 1st Cortisone injection in his right knee(s). Using aseptic technique the rightknee(s) were injected with the Cortisone medication. The patient tolerated the procedure well. Right Knee Cortisone Injection: -Discussed risks/benefits and obtained verbal consent. - After sterile prepping of the right knee with alcohol, using a 21 gauge needle, 2 cc of Marcaine,2cc of Lidocaine, and 1 cc of Kenolog was injected into the right knee joint from the medial approach -Band aide placed. -Performed using Ultrasound guidance with pictures taken. -Patient tolerated the procedure well and it was performed without difficulty. Injections ] Please note, this documentation has been converted into the [employer] EHR from our [employer] EMR forinformational purposes only. This documentation must not be released or used for legal purposes as the note is missing the responsible provider???s signature. A copy of the legal medical record can be obtained or printed only from the [employer] EMR. Injections Injections Dx for orders: PRIMARY LOCALIZED OSTEOARTHRITIS OF RIGHT KNEE ([id number]) Dx for orders: KNEE PAIN; RIGHT ([id number]) Kenalog dosage given: 1ML/40MG Kenalog strength: 10ML/400MG Kenalog: Done Kenalog wasted: NONE Kenalog given by: FRANCOIS ARTIS Kenalog Time given: 2:30PM Kenalog Mfr: BRISTOL RICHARDSON Kenalog Rte: Intra-articular Kenalog Lot: [id number] Kenalog [facility] number: [phone] Kenalog Exp Date: Kenalog Site: right knee Lidocaine dosage given: 2ML/40MG Lidocaine: given Lidocaine wasted: NONE Lidocaine given by: FRANCOIS ARTIS Lidocaine Time given: 2:30PM Lidocaine Medication provided by: floor-stock Lidocaine Mfr: Hospira Lidocaine Rte: Intra-articular Lidocaine Lot: [id number] Lidocaine [place] number: [id number] Lidocaine Exp Date: Lidocaine Site: right knee Dx for orders: PRIMARY LOCALIZED OSTEOARTHRITIS OF RIGHT KNEE ([id number]) Dx for orders: KNEE PAIN; RIGHT ([id number]) Marcaine dosage given: 2ML/10MG Marcaine: given Marcaine wasted: NONE Marcaine given by: FRANCOIS Velasquez Time given: 2:30PM Marcaine Medication provided by: floor-stock Marcaine Mfr: Hospira Marcaine Rte: intra-articular Marcaine Lot: [id number] Marcaine [facility] number: [id number] Marcaine Exp Date: Marcaine Site: right knee Changes - Added new Service order of Kenalog 40 mg ([id number]) - Signed Please note, this documentation has been converted into the [employer] EHR from our [employer] EMR forinformational purposes only. This documentation must not be released or used for legal purposes as the note is missing the responsible provider???s signature. A copy of the legal medical record can be obtained or printed only from the [employer] EMR. documented in this encounter Plan of Treatment Upcoming Encounters Date Type Specialty Care Team Description 01/25/2025 Office Visit [place] [address] [place] [address] [phone] 02/03/2025 Office Visit Pain Medicine Patricia Sotelo PA [address] [place] [address] documented as of this encounter Visit Diagnoses Not on filedocumented in this encounter Additional Health Concerns Infection Onset Date Last Indicated Resolved Time COVID-19 Rule Out Comment:04/29/2020 Negative (PAT) 02/20/2020 COVID19 NEGATIVE (PAT) 02/23/2020 02/23/2020 02/23/2020 10:42 AM EDT documented as of this encounter Care Teams Produce Team Lead Relationship Specialty Start Date End Date Joe Mensah MD [address] [place] [address] PCP - General Internal Medicine 11/17/18 [place] [address] [place] [address] Referring Physician Internal Medicine 11/17/18 Wan Rodríguez [facility] [address] 06/02/19 Rozina Petersen MD Gastroenterology 03/30/20 documented as of this encounter
--- OUTSIDE RECORDS SUMMARY | 2024-12-18 10:50 | XMS_ITS | Encounter Summary ---
Author Organization [facility] Address [address] [place] [address] Phone Care Team Providers Care Melt Room Operator Name Role Phone Joe Delaney MD Primary Care Provider [phone] Twan Davis MD Unavailable [phone] Wan Rodríguez Unavailable [phone] Rozina Petersen MD Unavailable Encounter Details Date Type Department Care Team Description 04/25/2021 Email from [facility] [employer] [employer] Internal Medicine [address] [place] [phone] Joe Delaney MD [address] [place] [address] Social History Tobacco Use Types Packs/Day [...] Exposure Response Date Recorded In the last month, have you been in contact with someone who was confirmed or suspected to have Coronavirus / COVID-19? No / Unsure 04/27/2021 1:51 PM EDT documented as of this encounter Plan of Treatment Upcoming Encounters Date Type Specialty Care Team Description 01/25/2025 Office Visit Internal Medicine Joe Delaney MD [address] [place] [address] 02/03/2025 Office Visit Pain Medicine Patricia Sotelo PA [address] [place], [place] [phone] documented as of this encounter Visit Diagnoses Not on filedocumented in this encounter Care Teams Melt Room Operator Relationship Specialty Start Date End Date Joe Delaney MD [address] [place] [address] PCP - General Internal Medicine 11/17/18 [place] [address] [place] [address] Referring Physician Internal Medicine 11/17/18 Wan Rodríguez [facility] [place] [address] 06/02/19 Rozina Petersen MD Gastroenterology 03/30/20 documented as of this encounter
--- OUTSIDE RECORDS SUMMARY | 2024-12-18 10:50 | XMS_ITS | Encounter Summary ---
Author Organization [facility] Address [address] [place] [address] Phone Care Team Providers Care Bowling Alley Attendant Name Role Phone Joe Delaney MD Primary Care Provider [phone] Twan Davis MD Unavailable [phone] Wan Rodríguez Unavailable [phone] Rozina Petersen MD Unavailable Encounter Details Date Type Department Care Team Description 05/05/2020 Email from [facility] Orthopedics [address] [place] [phone] [place] [address] [place] [address] [phone] Social History Tobacco Use Types Packs/Day Years [...] Visit Internal Medicine Joe Delaney MD [address] [place], [place] [phone] 02/03/2025 Office Visit Pain Medicine Patricia Sotelo PA [address] [place], [place] 6000413 documented as of this encounter Visit Diagnoses Not on filedocumented in this encounter Care Teams Bowling Alley Attendant Relationship Specialty Start Date End Date Joe Delaney MD [address] [place] [address] PCP - General Internal Medicine 11/17/18 Twan Davis MD [address] [place] [address] Referring Physician Internal Medicine 11/17/18 Wan Rodríguez [facility] [place] [address] 06/02/19 Rozina Petersen MD Gastroenterology 03/30/20 documented as of this encounter
--- OUTSIDE RECORDS SUMMARY | 2024-12-18 10:50 | XMS_ITS | Encounter Summary ---
Author Organization [facility] Address [address] [place] [address] Phone Care Team Providers Care Odd Bundle Worker Name Role Phone Joe Delaney MD Primary Care Provider [phone] Twan Davis MD Unavailable [phone] Wan Rodríguez Unavailable [phone] Rozina Petersen MD Unavailable Encounter Details Date Type Department Care Team Description 07/23/2023 Email from [employer] Internal Medicine [address] [place] [phone] Joe Delaney MD [address] [place] [address] Social History Tobacco Use Types Packs/Day [...] Office Visit Internal Medicine Joe Delaney MD [address] [place] [address] 02/03/2025 Office Visit Pain Medicine Patricia Sotelo PA [address] [place], [place] [phone] documented as of this encounter Visit Diagnoses Not on filedocumented in this encounter Care Teams Odd Bundle Worker Relationship Specialty Start Date End Date Joe Delaney MD [address] [place] [address] PCP - General Internal Medicine 11/17/18 [place] [address] [place] [address] Referring Physician Internal Medicine 11/17/18 Wan Rod[facility]guez [facility] [place] [phone] 06/02/19 Rozina Petersen MD Gastroenterology 03/30/20 documented as of this encounter
--- OUTSIDE RECORDS SUMMARY | 2024-12-18 10:50 | XMS_ITS | Encounter Summary ---
Author Organization [facility] Address [address] [place] [address] Phone Care Team Providers Care Control Valve Technician Name Role Phone Joe Delaney MD Primary Care Provider [phone] Twan Davis MD Unavailable [phone] Wan Rodríguez Unavailable [phone] Rozina Petersen MD Unavailable Encounter Details Date Type Department Care Team Description 03/26/2017 Conversion Orthopedics [address] [place] [phone] Eleanor Mcfarland PA [address] [place] [address] Social History Tobacco Use Types Packs/Day Years Used Date Smoking Tobacco: Never Assessed Sex Assigned at Date Recorded Male 03/28/2020 2:09 AM E DT Job Start Date Occupation Industry Not on file Not on file Not on file documented as of this encounter Progress Notes * CHANDRA Salas - 03/26/2017 10:49 AM EDT Order Changes - Added new Test order of Knee 4 or More Views-Complete, right ([id number]) - Signed Please note, this documentation has been converted into the [employer] EHR from our [employer] EMR forinformational purposes only. This documentation must not be released or used for legal purposes as the note is missing the responsible provider???s signature. A copy of the legal medical record can be obtained or printed only from the [employer] EMR. documented in this encounter Plan of Treatment Upcoming Encounters Date Type Specialty Care Team Description 01/25/2025 Office Visit Internal Medicine Joe Delaney MD [address] [place], [place] [phone] 02/03/2025 Office Visit Pain Medicine Patricia Sotelo PA [address] [place], [place] [phone] documented as of this encounter Visit Diagnoses Not on filedocumented in this encounter Additional Health Concerns Infection Onset Date Last Indicated Resolved Time COVID-19 Rule Out Comment:04/29/2020 Negative (PAT) 02/20/2020 COVID19 NEGATIVE (PAT) 02/23/2020 02/23/2020 02/23/2020 10:42 AM EDT documented as of this encounter Care Teams Control Valve Technician Relationship Specialty Start Date End Date Joe Delaney MD [address] [place] [address] PCP - General Internal Medicine 11/17/18 [place] [address] [place] [address] Referring Physician Internal Medicine 11/17/18 Wan Rodríguez [facility] [place] [address] 06/02/19 Rozina Petersen MD Gastroenterology 03/30/20 documented as of this encounter
--- OUTSIDE RECORDS SUMMARY | 2024-12-18 10:50 | XMS_ITS | Encounter Summary ---
Author Organization [facility] Address [address] [place] [address] Phone Care Team Providers Care Fence Builder Name Role Phone Joe Delaney MD Primary Care Provider [phone] Twan Davis MD Unavailable [phone] Wan Rodríguez Unavailable [phone] Rozina Petersen MD Unavailable Encounter Details Date Type Department Care Team Description 08/16/2020 Email from [employer] Internal Medicine [address] [place] [phone] Joe Delaney MD [address] [place] [address] [phone] Social History Tobacco Use Types Packs/Day Years [...] Visit Internal Medicine Joe Delaney MD [address] [place], [place] [phone] 02/03/2025 Office Visit Pain Medicine Patricia Sotelo PA [address] [place], [place] [phone] documented as of this encounter Visit Diagnoses Not on filedocumented in this encounter Care Teams Fence Builder Relationship Specialty Start Date End Date Joe Delaney MD [address] [place], [place] [phone] PCP - General Internal Medicine 11/17/18 Twan Davis MD [address] [place] [address] Referring Physician Internal Medicine 11/17/18 Wan Rod[facility]guez [facility] [place] [address] 06/02/19 Rozina Petersen MD Gastroenterology 03/30/20 documented as of this encounter
--- OUTSIDE RECORDS SUMMARY | 2024-12-18 10:50 | XMS_ITS | Encounter Summary ---
Author Organization [facility] Address [address] [place] [address] Phone Care Team Providers Care Distribution Warehouse Manager Name Role Phone Joe Delaney MD Primary Care Provider [phone] Twan Davis MD Unavailable [phone] Wan Rodríguez Unavailable [phone] Rozina Petersen MD Unavailable Encounter Details Date Type Department Care Team Description 12/06/2024 Email from [facility] [address] [place] [phone] Jamison Castano MD [address] [place] [address] Social History Tobacco Use Types Packs/Day Years [...] encounter Miscellaneous Notes * Telephone Encounter - Chey Earl LPN - 12/07/2024 9:20 AM EDT I am faxing the referral at this time to [phone] documented in this encounter Plan of Treatment Upcoming Encounters Date Type Specialty Care Team Description 01/25/2025 Office Visit [place] [address] [place] [address] 02/03/2025 Office Visit Pain Medicine Patricia Sotelo PA [address] [place] [address] documented as of this encounter Visit Diagnoses Not on filedocumented in this encounter Care Teams Distribution Warehouse Manager Relationship Specialty Start Date End Date Joe Delaney MD [address] [place] [address] [phone] PCP - General Internal Medicine 11/17/18 [place] [address] [place] [address] Referring Physician Internal Medicine 11/17/18 Wan Rodríguez [facility] [place] [address] 06/02/19 Rozina Petersen MD Gastroenterology 03/30/20 documented as of this encounter
--- OUTSIDE RECORDS SUMMARY | 2024-12-18 10:50 | XMS_ITS | Continuity of Care Document ---
Author Organization [facility] Address [address] [address] Phone [phone] Care Team Providers Care Partner Alliance Manager Name Role Phone Leroy Story M.D. Care Team Information Rece iver Unavailable
--- OUTSIDE RECORDS SUMMARY | 2024-12-18 10:50 | XMS_ITS | Continuity of Care Document ---
Author Organization [facility] Address [address] [place] [address] [address], [address] [place] [address] Phone [phone] Care Team Providers Care Staff Rn Name Role Phone Joe Delaney MD Care Team Information Receive r Unavailable WOLFGANG SEN MD Care Team Information Receiv er Unavailable Joe Delaney MD Primary Care Physician Ezra barnes
--- OUTSIDE RECORDS SUMMARY | 2024-12-18 10:50 | XMS_ITS | Encounter Summary ---
Author Organization [facility] Address [address] [place] [address] Phone Care Team Providers Care Pharmacy Tech Name Role Phone Joe Delaney MD Primary Care Provider Twan Davis MD Unavailable [phone] Wan Rodríguez Unavailable Rozina Petersen MD Unavailable Encounter Details Date Type Department Care Team Description 12/31/2023 Email from [facility] [address] [place] [phone] Patricia Sotelo PA [address] [place] [address] [phone] Social History Tobacco Use Types Packs/Day Years [...] Visit Internal Medicine Joe Delaney MD [address] [place], [place] [phone] 02/03/2025 Office Visit Pain Medicine Patricia Sotelo PA [address] [place], [place] [phone] documented as of this encounter Visit Diagnoses Not on filedocumented in this encounter Care Teams Pharmacy Tech Relationship Specialty Start Date End Date Joe Delaney MD [address] [place], [place] [phone] PCP - General Internal Medicine 11/17/18 Twan Davis MD [address] [place] [address] Referring Physician Internal Medicine 11/17/18 Wan Rodríguez [facility] [place] [address] 06/02/19 Rozina Petersen MD Gastroenterology 03/30/20 documented as of this encounter
--- OUTSIDE RECORDS SUMMARY | 2024-12-18 10:50 | XMS_ITS | Encounter Summary ---
Author Organization [facility] Address [address] [place] [address] Phone Care Team Providers Care Engineering Mgr Name Role Phone Joe Mensah MD Primary Care Provider [phone] Twan Davis MD Unavailable [phone] Wan Rodríguez Unavailable [phone] Rozina Petersen MD Unavailable Encounter Details Date Type Department Care Team Description 10/30/2016 Conversion Endocrinology [address] [place] [phone] Russ Allred MD [address] [place] [address] Social History Tobacco Use Types Packs/Day Years Used Date Smoking Tobacco: Never Assessed Sex Assigned at Date Recorded Male 03/28/2020 2:09 AM E DT Job Start Date Occupation Industry Not on file Not on file Not on file documented as of this encounter Procedure Notes * Russ Allred MD - 10/30/2016 10:44 AM EDTAssociated Order(s): IMAGING SCAN LINK FXUS-GUIDED NEEDLE PLACEMENT ULTRASOUND - OUTPATIENT FINAL REPORT DATE OF EXAM: 10/30/2016 10:03 A NAME: DILIP SOLANO : 1950 AGE: [age] year old ACCT: [id number] MR: [id number] LOC: [place] ORDERING: RUSS ALLRED MD EXAM: FXUS-GUIDED NEEDLE PLACEMENT ACCN: [id number] CLINICAL HISTORY: Ultrasound guidance provided for biopsy/fine needle aspiration of thyroid. Procedure performed by Dr. Allred. COMPARISON: Ultrasound performed on 06/26/2016. The outside prior ultrasound was performed at [facility] in [place], [place]. TECHNIQUE/FINDINGS/ IMPRESSION: 10 images obtained. Images reveal a solid and cystic nodule at mid aspect of the right thyroid lobe which measures 14 x 13 x 13 mm. Additionally noted is a lobulated nodule/mass in the lower aspect of the right thyroid lobe which measures 2.7 x 2.5 x 2.0 cm. 3 passes of nodule at lower aspect of the right thyroid lobe reportedly performed. Report edited for Twan Mak MD 10/30/2016 10:44 AM Electronically Signed by Twan Mak MD 10/30/2016 10:45 AM kitty A DL: [id number] A ID: [id number] cc: MD RUSS ROBERTSON MD REVIEWED ONLY Please note, this documentation has been converted into the [employer] EHR from our [employer] EMR forinformational purposes only. This documentation must not be released or used for legal purposes as the note is missing the responsible provider???s signature. A copy of the legal medical record can be obtained or printed only from the [employer] EMR. * Russ Allred MD - 10/30/2016 1:28 AM EDTAssociated Order(s): LAB SCAN LINK [facility] or Ext. [phone], Fax MEDICAL CYTOLOGY REPORT PATIENT: DILIP SOLANO : 1950 AGE: 66 Y SEX: M ACCT: [id number] PROCEDURE DATE: 10/30/2016 DATE RECEIVED: 10/30/2016 REQUESTING PROVIDER: RUSS ALLRED MD LOCATION: [facility] Case No. [id number] FINAL DIAGNOSIS: FINE NEEDLE ASPIRATION THYROID, RIGHT: 1. NEGATIVE FOR MALIGNANT CELLS 2. FOLLICULAR CELLS, MACROPHAGES AND COLLOID ARE PRESENT. CNE 10/31/16. Initial screening performed at [facility] [address] [place] [address]. Final diagnosis performed at [facility], [address] [place] [address]. CLINICAL DATA: SPEC PLACED INTO CYTOLYT AT: 9:35 AM SEE ATTACHED REPORT SPECIMEN SUBMITTED: FINE NEEDLE ASPIRATION THYROID, RIGHT # of Cells Blocks: 1 # of Monolayers: 1 # of Smear Slides: 4 Total # ofSlides/Specimen: 8 Volume: 30 mL Color: Red Consist: cloudy Bloody: Y Other: CYTOLYT FLD/ 4 SLIDES TIME PLACED INTO FORMALIN: 14:00 TOTAL FIXATION TIME:4.5 HRS ADDITIONAL COPIES SENT TO: JOE MENSAH MD Screened by: Electronically Signed by: ELLIE PALMA([facility]) MARK ANTOINE MD Reported Date/Time: 10/31/2016 12:37 Performed at [facility] [address] [place] [address] This report may include one or more immunohistochemistry stain results which use analyte-specific reagents. The interpretation of the above immunohistochemistry stain or stains is guided by published results in the medical literature, provided package information from the resource management planner and by internal review of staining performance and assay validation within the Immunohistochemistry Department of [employer]. This testing has not been cleared or approved by the U.S. Food and Drug Administration (FDA). The FDA has determined that such clearance or approval is not necessary. These tests are used for clinical purposes and should not be regarded as investigational or research. Special stains and/or immunohistochemical stains were performed with appropriately stained positive and negative controls. [facility] is a brand used by [employer] a subsidiary of [employer]. Please note, this documentation has been converted into the [employer] EHR from our [employer] EMR forinformational purposes only. This documentation must not be released or used for legal purposes as the note is missing the responsible provider???s signature. A copy of the legal medical record can be obtained or printed only from the [employer] EMR. documented in this encounter Plan of Treatment Upcoming Encounters Date Type Specialty Care Team Description 01/25/2025 Office Visit Internal Medicine Jeo Mensah MD [address] [place] [address] 02/03/2025 Office Visit Pain Medicine Patricia Sotelo PA [address] [place] [address] documented as of this encounter Procedures Procedure Name Priority Date/Time Associated Diagnosis Comments IMAGING SCAN 10/30/2016 10:44 AM EDT LAB SCAN 10/30/2016 1:28 AM EDT documented in this encounter Results * IMAGING SCAN LINK (10/30/2016 10:44 AM EDT) Anatomical Region Laterality Modality Other Procedure Note Russ Allred MD - 10/30/2016 10:44 AM EDT FXUS-GUIDED NEEDLE PLACEMENT ULTRASOUND - OUTPATIENT FINAL REPORT DATE OF EXAM: 10/30/2016 10:03 A NAME: DILIP SOLANO : 1950 AGE: 66year old ACCT: [id number] MR: [id number] LOC: [place] ORDERING: RUSS ALLRED MD EXAM: FXUS-GUIDED NEEDLE PLACEMENT ACCN: [id number] CLINICAL HISTORY: Ultrasound guidance provided for biopsy/fine needle aspiration of thyroid. Procedure performed by Dr. Allred. COMPARISON: Ultrasound performed on 06/26/2016. The outside prior ultrasound was performed at [facility] in [place], [place]. TECHNIQUE/FINDINGS/ IMPRESSION: 10 images obtained. Images reveal a solid and cystic nodule at midaspect of the right thyroid lobe which measures 14 x 13 x 13 mm. Additionally noted is a lobulated nodule/mass in the lower aspect of the rightthyroid lobe which measures 2.7 x 2.5 x 2.0 cm. 3 passes of nodule at loweraspect of the right thyroid lobe reportedly performed. Report edited for Twan Mak MD 10/30/2016 10:44 AM Electronically Signed by Twan Mak MD 10/30/2016 10:45 AM kitty A DL: [id number] A ID: [id number] cc: MD RUSS ROBERTSON MD REVIEWED ONLY Please note, this documentation has been converted into the [employer] EHR fromour [employer] EMR for informational purposes only. This documentationmust not be released or used for legal purposes as the note is missing theresponsible provider? s signature. A copy of the legal medical record canbe obtained or printed only from the [employer] EMR. Russ Allred MD HEALTH MAINTENANCE * LAB SCAN LINK (10/30/2016 1:28 AM EDT) Procedure Note Russ Allred MD - 10/30/2016 1:28 AM EDT CYTOLOGY [facility] or Ext. [id number], Fax MEDICAL CYTOLOGY REPORT PATIENT: DILIP SOLANO : 1950 AGE: 66 Y SEX: M ACCT: [id number] PROCEDURE DATE: 10/30/2016 DATE RECEIVED: 10/30/2016 REQUESTING PROVIDER: RUSS ALLRED MD LOCATION: [facility] Case No. [id number] FINAL DIAGNOSIS: FINE NEEDLE ASPIRATION THYROID, RIGHT: 1. NEGATIVE FOR MALIGNANT CELLS 2. FOLLICULAR CELLS, MACROPHAGES AND COLLOID ARE PRESENT. CNE 10/31/16. Initial screening performed at [facility] [address] [place] [address]. Final diagnosis performed at [facility], [address] [place] [address]. CLINICAL DATA: SPEC PLACED INTO CYTOLYT AT: 9:35 AM SEE ATTACHED REPORT SPECIMEN SUBMITTED: FINE NEEDLE ASPIRATION THYROID, RIGHT # of Cells Blocks: 1 # of Monolayers: 1 # of Smear Slides: 4 Total # ofSlides/Specimen: 8 Volume: 30 mL Color: Red Consist: cloudy Bloody: Y Other: CYTOLYT FLD/ 4 SLIDES TIME PLACED INTO FORMALIN: 14:00 TOTAL FIXATION TIME:4.5 HRS ADDITIONAL COPIES SENT TO: JOE MENSAH MD Screened by: Electronically Signed by: ELLIE PALMA([facility]) MARK ANTOINE MD Reported Date/Time: 10/31/2016 12:37 Performed at [facility] [employer] [address] [place] [id number] This report may include one or more immunohistochemistry stain results which use analyte-specific reagents. The interpretation of the above immunohistochemistry stain or stains is guided by published results in the medical literature, provided package information from the resource management planner and by internal review of staining performance and assay validation within the Immunohistochemistry Department of [employer]. This testing has not been cleared or approved by the U.S. Food and Drug Administration (FDA). The FDA has determined that such clearance or approval is not necessary. These tests are used for clinical purposes and should not be regarded as investigational or research. Special stains and/or immunohistochemical stains were performed with appropriately stained positive and negative controls. [facility] is a brand used by [employer] a subsidiary of [employer]. Please note, this documentation has been converted into the AGRIMAPS EHR fromour [employer] EMR for informational purposes only. This documentationmust not be released or used for legal purposes as the note is missing theresponsible provider? s signature. A copy of the legal medical record canbe obtained or printed only from the [employer] EMR. Russ Allred MD LAB BLOOD ORDERABLES documented in this encounter Visit Diagnoses Not on filedocumented in this encounter Additional Health Concerns Infection Onset Date Last Indicated Resolved Time COVID-19 Rule Out Comment:04/29/2020 Negative (PAT) 02/20/2020 COVID19 NEGATIVE (PAT) 02/23/2020 02/23/2020 02/23/2020 10:42 AM EDT documented as of this encounter Care Teams Engineering Mgr Relationship Specialty Start Date End Date Joe Mensah MD [facility] [place] [address] PCP - General Internal Medicine 11/17/18 [place] [address] [place] [address] Referring Physician Internal Medicine 11/17/18 Wan Rodríguez Count Includes [facility] Vlad Katz [facility] [place] [address] 06/02/19 Rozina Petersen MD Gastroenterology 03/30/20 documented as of this encounter
--- OUTSIDE RECORDS SUMMARY | 2024-12-18 10:50 | XMS_ITS | Encounter Summary ---
Author Organization [facility] Address [address] [place] [address] Phone Care Team Providers Care Envelope Press Operator Name Role Phone Joe Delaney MD Primary Care Provider [phone] Twan Davis MD Unavailable [phone] Wan Rodríguez Unavailable Rozina Petersen MD Unavailable Encounter Details Date Type Department Care Team Description 02/10/2020 Email from [employer] [facility] Hematology/Oncology [address] [place] [address] Param Scott Ud, MD [address] [place] [address] Social History Tobacco Use Types Packs/Day Years [...] Office Visit Internal Medicine Joe Delaney MD [address] [place] [address] 02/03/2025 Office Visit Pain Medicine Patricia Soetlo PA [address] [place] [address] documented as of this encounter Visit Diagnoses Not on filedocumented in this encounter Additional Health Concerns Infection Onset Date Last Indicated Resolved Time COVID-19 Rule Out Comment:04/29/2020 Negative (PAT) 02/20/2020 COVID19 NEGATIVE (PAT) 02/23/2020 02/23/2020 02/23/2020 10:42 AM EDT documented as of this encounter Care Teams Envelope Press Operator Relationship Specialty Start Date End Date Joe Delaney MD [address] [place] [address] PCP - General Internal Medicine 11/17/18 Twan Davis MD [address] [place] [address] Referring Physician Internal Medicine 11/17/18 Wan Rodríguez [facility] Vlad Katz [facility] [place] [address] 06/02/19 Rozina Petersen MD Gastroenterology 03/30/20 documented as of this encounter
--- OUTSIDE RECORDS SUMMARY | 2024-12-18 10:50 | XMS_ITS | Encounter Summary ---
Author Organization [facility] Address [address] [place] [address] Phone Care Team Providers Care Equipment Specialist Name Role Phone Joe Mensah MD Primary Care Provider Twan Davis MD Unavailable [phone] Wan Rodríguez Unavailable [phone] Rozina Petersen MD Unavailable Encounter Details Date Type Department Care Team Description 12/08/2015 Conversion Private Practice - Procedural [address] [place] [phone] Geronimo Salguero MD [address] [place] [address] Social History Tobacco Use Types Packs/Day Years Used Date Smoking Tobacco: Never Assessed Sex Assigned at Date Recorded Male 03/28/2020 2:09 AM E DT Job Start Date Occupation Industry Not on file Not on file Not on file documented as of this encounter Progress Notes * Geronimo Bennett MD - 12/08/2015 11:19 AM EDT History of Present Illness Chief Complaint: follow up loop recorder HISTORY OF PRESENT ILLNESS: Followup visit following loop recorder. Dilip is here for followup. He reports some shortness of breath, occasional palpitations. Loop tracings are reviewed that showed sinus rhythm. Reports some burning chest discomfort up to the neck. Occasional dyspnea. RE: JEANA SOLANOAdriano Tavarez DOS: 12/08/2015 PK/htsef Job: [id number] Ejection Fraction: 60-65 (11/11/2015) Total Cholesterol: 158 (05/09/2015) LDL: 98 HDL: 36 Triglyceride: 120 Past Medical History(reviewed history from 12/01/2015- no changes required): Htn. Elev PSA. . Back Pain. A-fib;. Gerd. Allergic rhinitis. BPH. Past Surgical History: Tonsillectomy, childhood; . [place] teeth extracted;. Dental implants. . Prost bx. Family History reviewed - no changes required Additional comments:Mother age 88, kidney cancer, hysterectomy, breast cancer, cancerous colonpolyp. Father is , at age 83, [place] suspected. Had high PSA but not Ca. 1 brother is alive andwell. 1 sister is alive and well. Social History (reviewed history from 12/01/2015 - no changes required): Marital Status: ; . Number of Children: 3;. Place of : [place];. 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 Sleep History: 6-8 hrs;. Travel History: [place];. Tobacco use: never smoker. Alcohol use:yes. Alcohol use Frequency:social. Drug use: never. Caffeine use (drinks/day): 3. Exercise (times/week): 3. Seatbelt use (%): 100. 2 cats (for 2 years), a dog. . Review of Systems General: Denies fevers, chills, sweats, anorexia, fatigue, malaise, weight loss, weight gain, headache. Cardiovascular: Complains of see HPI. Respiratory: Denies cough, dyspnea, excessive sputum, hemoptysis, wheezing. occasional dyspnea Heme/Lymphatic: Denies abnormal bruising, bleeding, enlarged lymph nodes. Previous Problems: CATARACT (ICD-366.9) (GVT27-G41.9) PREOPERATIVE EXAMINATION NEC (ICD-V72.83) (YHU25-Y07.818) ATRIAL FIBRILLATION (ICD-427.31) (CRX47-K09.0) LUMBAGO (ICD-724.2) (KMQ72-E91.5) HX OF BEE STING ALLERGY (ICD-V15.06) (YPH96-F17.030) ESSENTIAL HYPERTENSION (ICD-401.9) (QCI94-P64) SHORTNESS OF BREATH (ICD-786.05) (QFG93-L03.02) OSTEOARTHRITIS, KNEE, RIGHT (ICD-715.96) (KQH83-V30.9) INGROWING NAIL (ICD-703.0) (PPX97-M05.0) KNEE PAIN, RIGHT (ICD-719.46) (PNJ09-S59.561) ? of ADENOCARCINOMA, PROSTATE (ICD-185) (CAR79-I74) Sx of DEGENERATIVE JOINT DISEASE, KNEE (ICD-715.96) (CYR26-P27.9) BENIGN PROSTATIC HYPERPLASIA (ICD-600.00) (NMO87-B16.0) PSA, INCREASED (ICD-790.93) (TTD19-Y54.2) SPRAIN/STRAIN NOS (ICD-848.9) (YTD84-V57.8) SCREENING FOR UNSPECIFIED CONDITION (ICD-V82.9) (MHZ96-V11.9) SCREENING FOR LIPOID DISORDERS (ICD-V77.91) (OMP27-L06.220) ALLERGIC RHINITISCAUSE UNSPECIFIED (ICD-477.9) POSTNASAL DRIP (ICD-784.91) (DKD84-C08.82) GERD (ICD-530.81) (SRZ60-D79.9) ALLERGIES: PCN (Moderate) AMLODIPINE BESYLATE (AMLODIPINE BESYLATE) (Moderate) PENICILLIN (Moderate) Previous Medications: - verified by patient or patient agency service representative LOSARTAN POTASSIUM 100 MG TABS (LOSARTAN POTASSIUM) one po qd ELIQUIS 5 MG TABS (APIXABAN) one po bid TOPROL XL TBCR 50 MG (METOPROLOL SUCCINATE) 1 by mouth daily Intake Form: Vital Signs Entering Staff: Vida Granados December 08, 2015 11:37 AM Entered weight: 234 lb. Calculated weight: 234 lb. (106.36kg.) Height: 74in.(187.96cm.) Expanded BP Assessment Blood Pressure Site #1: 120/66 mm Hg Site: left arm Pulse Site #1: 60 Body Mass Index in-lb BMI (in-lb) 30.15 Body Mass Index cm-kg BMI (cm-kg) 30.11 Physical Exam General appearance: well developed, well [...] S1/S2, no murmur, no rub, no gallop Cardiocomments loop site healed well Abdominal Abdominal aorta: no enlargement,no bruits Abdomen: [...] alert,oriented to time/place/person Sensation: no focal findings Assessment ATRIAL FIBRILLATION, PAROXYSMAL (ICD-427.31) (LUJ13-F42.0) CHEST DISCOMFORT (ICD-786.59) (GMB01-Q09.89) DYSPNEA (ICD-786.09) (HSY70-G37.00) Plan Medications (added/changed): ELIQUIS 5 MG TABS (APIXABAN) one po bid New Orders: SNOMED-CT: [id number] Patient Encounter for Meaningful Use [[id number]] Myocardial SPECTmulti studies, at rest & or stress with EF & wall motion [NMMYOCARDE/[id number]] IMPRESSION AND PLAN: 1. Dyspnea and chest discomfort. Will evaluate further with an exercise Cardiolite stress test. 2. Paroxysmal atrial fibrillation. Status post loop recorder implantation. Current loop transmission showed only sinus rhythm. I reviewed the tracing. Followup after the stress test. RE: JEANA SOLANOO [employer] DOS: 12/08/2015 PK/htsef Job: [id number] cc: JOE MENSAH M.D. Please note, this documentation has been converted into the [employer] EHR from our [employer] EMR forinformational purposes only. This documentation must not be released or used for legal purposes as the note is missing the responsible provider???s signature. A copy of the legal medical record can be obtained or printed only from the [employer] EMR. documented in this encounter Plan of Treatment Upcoming Encounters Date Type Specialty Care Team Description 01/25/2025 Office Visit [place] [address] [place] [phone] 02/03/2025 Office Visit [place] [address] [place] [address] documented as of this encounter Visit Diagnoses Not on filedocumented in this encounter Additional Health Concerns Infection Onset Date Last Indicated Resolved Time COVID-19 Rule Out Comment:04/29/2020 Negative (PAT) 02/20/2020 COVID19 NEGATIVE (PAT) 02/23/2020 02/23/2020 02/23/2020 10:42 AM EDT documented as of this encounter Care Teams Equipment Specialist Relationship Specialty Start Date End Date Joe Mensah MD [facility] [place], [place] [phone] PCP - General Internal Medicine 11/17/18 [place] [address] [place] [address] Referring Physician Internal Medicine 11/17/18 Wan Rodríguez [facility][Note 2] Gianna [facility] [place] [address] 06/02/19 Rozina Petersen MD Gastroenterology 03/30/20 documented as of this encounter
--- OUTSIDE RECORDS SUMMARY | 2024-12-18 10:50 | XMS_ITS | Encounter Summary ---
Author Organization [facility] Address [address] [place] [address] Phone Care Team Providers Care Mathematician Name Role Phone Joe Delaney MD Primary Care Provider [phone] Twan Davis MD Unavailable [phone] Wan Rodríguez Unavailable [phone] Rozina Petersen MD Unavailable Reason for Visit * Reason Onset Date Comments Medication Refill 06/05/2023 Encounter Details Date Type Department Care Team Description 06/05/2023 Refill from [facility] Internal Medicine [address] [place] [phone] Joe Delaney MD [address] [place], [place] [phone] Essential hypertension; Paroxysmal atrial fibrillation Social History [...] encounter Miscellaneous Notes * Telephone Encounter - Svetlana Bhandari - 06/05/2023 12:42 PM EDT david- 6-6-23 Nov- none Signature: Svetlana Bhandari Date: June 05, 2023 Time: 12:42 PM documented in this encounter Plan of Treatment Upcoming Encounters Date Type Specialty Care Team Description 01/25/2025 Office Visit Internal Medicine Joe Delaney MD [address] [place] [phone] 02/03/2025 Office Visit [place] [address] [place] [address] documented as of this encounter Visit Diagnoses Diagnosis Essential hypertension Unspecified essential hypertension Paroxysmal atrial fibrillation Atrial fibrillation documented in this encounter Care Teams Mathematician Relationship Specialty Start Date End Date Joe Delaney MD [facility] [place] [address] PCP - General Internal Medicine 11/17/18 [place] [address] [place] [address] Referring Physician Internal Medicine 11/17/18 Wan Rod[facility]uez [facility] [phone] 06/02/19 Rozina Petersen MD Gastroenterology 03/30/20 documented as of this encounter
--- OUTSIDE RECORDS SUMMARY | 2024-12-18 10:50 | XMS_ITS | Encounter Summary ---
Author Organization [facility] Address [address] [place] [address] Phone Care Team Providers Care Printer Technician Name Role Phone Joe Delaney MD Primary Care Provider Twan Davis MD Unavailable [phone] Wan Rodríguez Unavailable [phone] Rozina Petersen MD Unavailable Encounter Details Date Type Department Care Team Description 11/02/2016 Conversion Endocrinology [address] [place] [phone] Jayjay Allred MD [address] [place] [address] Social History Tobacco Use Types Packs/Day Years Used Date Smoking Tobacco: Never Assessed Sex Assigned at Date Recorded Male 03/28/2020 2:09 AM E DT Job Start Date Occupation Industry Not on file Not on file Not on file documented as of this encounter Progress Notes * Jayjay Allred MD - 11/02/2016 9:46 AM EDT Endocrinology Department of Endocrinology and Metabolism Jayjay Allred MD, [facility] [place], [place], [place] Chief Complaint: f/up tbx HPI: 66-year-old white male with Thyroid Nodules status post biopsy here for follow- up evaluation. He was initially seen here 09/20/[address] Joe Delaney for evaluation and treatment recommendations. He was incidentally found to have thyroid nodules on carotid ultrasound and thyroid ultrasound promptly ordered to further evaluate. Thyroid ultrasound 06/26/16 showed showed an enlarged, heterogeneous right thyroid lobe containing thyroid nodules and congenitally absent left thyroid lobe. The right lobe thyroid nodules measured 32 x 26 x 28 mm and 16 x 14 x 16 mm. He denied any known family history of thyroid cancer and does not appear to have a history of significant radiation exposure to his head/neck. He has a family history of goiter in his mother who was treated with thyroidectomy and later with levothyroxine for surgical hypothyroidism. His daughter has small thyroid nodules which are beingmonitored. 09/17/16: TSH 2.70 and free T4 1.05. He has a history of atrial fibrillation and is now on anticoagulation using Xarelto. The [place] Thy[employer] Association (DEREK) and the [place] Association of Clinical Endocrinologists (AACE) recommend ultrasound-guided thyroid biopsy of thyroid nodules > or = 10 mm since they are atan increased risk for being Thyroid cancer. Discussed the thyroid biopsy procedure in detail with patient, including risks, benefits and alternatives. We discussed all the management options for thyroid nodules and patient requested to have a thyroidbiopsy to evaluate for Thyroid Cancer. Ultrasound-guided thyroid biopsy was performed 10/30/16 on the 2 suspicious right lobe thyroid nodules to evaluate for thyroid cancer. Cytology reported both of these nodules to be benign and negative for thyroid cancer. Today he appears clinically euthyroid, vitals are stable, he does not appear to have any mass effect from his thyroid gland and he is in no acute distress. Past Medical History(reviewed history from 09/20/2016- no changes required): Thyroid nodules. Htn. Elev PSA. . Back Pain. A-fib. . Gerd. Allergic rhinitis. BPH. Past Surgical History: Tonsillectomy, childhood; . [place] teeth extracted;. Dental implants. . Prost bx. Family History reviewed - no changes required Additional comments:Mother age 88, kidney cancer, hysterectomy, breast cancer, cancerous colonpolyp. Father is , at age 83, [place] suspected. Had high PSA but not Ca. 1 brother is alive and well. 1 sister is alive and well. Social History (reviewed history from 09/20/2016 - no changes required): Marital Status: . . Number of Children: 3. Place ofBirth: [place]. 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 Sleep History: 6-8 hrs;. Travel History: [place];. Tobacco use: never smoker. Passive smoke exposure: no. Alcohol use:yes. Alcohol use Frequency:social. Drug use: never. HIV high risk behavior: no. Caffeine use (drinks/day): 3. Exercise (times/week): 3. Seatbelt use (%): 100. 2 cats (for 2 years), a dog. . Review of Systems General: Denies fevers, chills, fatigue. Eyes: Denies blurring, diplopia. Ears/Nose/Throat: Denies earache, ear discharge, tinnitus, decreased hearing, nasal congestion, nosebleeds, sore throat, hoarseness, oral ulcers, dry mouth, dysphagia, postnasal drip, sneezing, phonophobia. Cardiovascular: Denies chest pains, palpitations, syncope, dyspnea on exertion, orthopnea, PND, peripheral edema, light-headedness, claudication. Respiratory: Denies cough, dyspnea, excessive sputum, hemoptysis, pleuritic chest pain, wheezing. Gastrointestinal: Denies nausea, vomiting, diarrhea, constipation, change in bowel habits, abdominal pain, melena, hematochezia, jaundice, bloating, heartburn, reflux. Genitourinary: Denies dysuria, hematuria, discharge, urinary frequency, urinary hesitancy, nocturia, incontinence, genital sores, impotence, decreased libido. Musculoskeletal: Denies back pain, joint pain, joint swelling, muscle cramps, muscle weakness, stiffness, arthritis, neck pain. Skin/Breast: Denies rash, itching, dryness, suspicious lesions, breast tenderness, nipple discharge. Neurologic: Denies transient paralysis, weakness, paresthesias, seizures, syncope, tremors, vertigo, problems with balance, headache, migraine, memory loss, numbness, speech difficulty, confusion. Psychiatric: Denies depression, anxiety. Endocrine: Denies cold intolerance, heatintolerance. Allergies: PCN (Moderate) AMLODIPINE BESYLATE (AMLODIPINE BESYLATE) (Moderate) PENICILLIN (Moderate) Intake Form: Vital Signs Entering Staff: Nicolle Terry November 02, 2016 10:18 AM Entered weight: 225 lb., 8 oz. Calculated weight: 225.50 lb. (102.50kg.) Height: 74in.(187.96cm.) Expanded BP Assessment Left Arm BP: 122/68 mm Hg Body Mass Index in-lb BMI (in-lb) 29.06 Physical Exam General appearance: well nourished, well hydrated, no acute distress Eyes External: conjunctivae and lids normal Ears, Nose and Throat External ears: normal, no lesions or deformities Hearing: grossly intact Lips/teeth/gums: normal dentition, no gingival inflammation, no labial lesions Neck Neck: supple, no masses, trachea midline Thyroid: nodules stable Respiratory Respiratory effort: no intercostal retractions or use of accessory muscles Auscultation: no rales, rhonchi, or wheezes Cardiovascular Auscultation: S1, S2, no murmur, rub, or gallop Pedal pulses: pulses 2+, symmetric Gastrointestinal Abdomen: soft, non-tender, no masses, bowel sounds normal Hernia: no hernias Lymphatic Neck: no cervical adenopathy Musculoskeletal Digits and nails: no clubbing, cyanosis, petechiae, or nodes Head and neck: normal alignment and mobility Skin Inspection: no rashes, lesions, or ulcerations Neurologic Reflexes: 2+, symmetric, no pathological reflexes Motor/Strength: all extremities normal Mental Status Exam Judgment, insight: intact Mood and affect: no depression, anxiety, or agitation Preventive Care/Screening EKG: complete (12/27/2015) Colonoscopy: complete (11/11/2012) BMI: 29.06 (11/02/2016) Blood Pressure:122/68 (11/02/2016) Tobacco use: never smoker (11/02/2016) Alcohol use: yes (11/02/2016) Drug use: never (11/02/2016) CHOLESTEROL: 169 (09/17/2016) HDL: 41 (09/17/2016) LDL: 104 (09/17/2016) TRIGLYCERIDE: 122 (09/17/2016) PSA: 8.96 (05/10/2016) PNEUMOCOCCAL: refused (07/18/2012) Prevnar 13: refused (09/07/2016) FLU VAX: 05/08/2016 Assessment Allergies: PCN (Moderate) AMLODIPINE BESYLATE (AMLODIPINE BESYLATE) (Moderate) PENICILLIN (Moderate) Problems (including changes): SYMPTOM, MEMORY LOSS (ICD-780.93) (WIU82-Y61.3) GOITER (ICD-240.9) (EHH12-K06.9) ANEMIA, MICROCYTIC (ICD-281.9) (LRU62-W37.9) GOITER, MULTINODULAR (ICD-241.1) (HBR08-W17.2) HEMORRHOIDS (ICD-455.6) (XOF51-L32.9) KEY'S ESOPHAGUS (ICD-530.85) (KOK10-T45.70) THYROID NODULES (ICD-241.0) (SSZ03-M05.1) ANXIETY (ICD-300.00) (ITD44-P92.9) AURAS (ICD-346.50) (KMQ72-G52.109) TIA (ICD-435.9) (JUV49-X74.9) ATRIAL FIBRILLATION, PAROXYSMAL (ICD-427.31) (WJQ26-A08.0) LUMBAGO (ICD-724.2) (JAN81-G06.5) HX OF BEE STING ALLERGY (ICD-V15.06) (ZTH81-D58.030) ESSENTIAL HYPERTENSION (ICD-401.9) (QTM52-S87) OSTEOARTHRITIS, KNEE, RIGHT (ICD-715.96) (OWE41-M54.9) INGROWING NAIL (ICD-703.0) (DUJ70-C82.0) KNEE PAIN, RIGHT (ICD-719.46) (ZRC43-M98.561) ? of ADENOCARCINOMA, PROSTATE (ICD-185) (PJH89-X36) Sx of DEGENERATIVE JOINT DISEASE, KNEE (ICD-715.96) (GUL19-A48.9) BENIGN PROSTATIC HYPERPLASIA (ICD-600.00) (HZK67-L06.0) PSA, INCREASED (ICD-790.93) (LZN28-T36.2) SCREENING FOR UNSPECIFIED CONDITION (ICD-V82.9) (SJW46-Q83.9) SCREENING FOR LIPOID DISORDERS (ICD-V77.91) (RZX76-V74.220) POSTNASAL DRIP (ICD-784.91) (AEI93-Y32.82) GERD (ICD-530.81) (ILN43-D12.9) Problem Assessments: Medications (including changes): LOSARTAN POTASSIUM 100 MG TABS (LOSARTAN POTASSIUM) [...] to hemorrhoids after warm sitz bath qd Impression: 66-year-old white male with Thyroid Nodules status post biopsy here for follow- up evaluation. Plan: Recommend repeating thyroid ultrasound in 12 months from last which would be around 06/2017 to evaluate for changes in the thyroid nodules. If there is significant increase in size of the thyroid nodules resulting in mass effect surgical intervention may be necessary. Discussed the results of the thyroid biopsy with patient in detail, a copy of the cytology report given to patient today and counseling provided along with reassurance on the findings. Check complete thyroid function tests along with thyroid antibodies on return to clinic. Total visit time was 25 minutes with > 50% of time spent discussing presenting complaints, possible etiologies, lab tests, clinical findings, treatment options and plan with patient. Old records were ordered and reviewed. Patient was given the opportunity and encouraged to ask questions, and allwere addressed to the best of my ability during this visit. Patient was advised to call my office at any time prior to next visit with questions/concerns and they will be promptlyaddressed. Orders: SNOMED-CT: [id number] Patient Encounter for Meaningful Use [[id number]] T4, FREE [5015] TSH [5020] Thyroid peroxidase antibodies (TPO) [777696] Thyroid Stimulating Immunoglobulin [915846] Ultrasound Head & neck-soft tissues (eg. thyroid) [USSOFTISSU] 58082-Gnupxscolsj Patient - Detailed with Moderate Complexity [CPT-33148] cc: pcp Injections ]follow up in nov with us/and labs Lorne Pickard MA November 02, 2016 10:40 AM Please note, this documentation has been converted into the [employer] EHR from our [employer] forinformational purposes only. This documentation must not be released or used for legal purposes as the note is missing the responsible provider???s signature. A copy of the legal medical record can be obtained or printed only from the [employer] EMR. documented in this encounter Plan of Treatment Upcoming Encounters Date Type Specialty Care Team Description 01/25/2025 Office Visit [place] [address] [place] [phone] 02/03/2025 Office Visit Pain Medicine Patricia Sotelo PA [address] [place], [place] [phone] documented as of this encounter Visit Diagnoses Not on filedocumented in this encounter Additional Health Concerns Infection Onset Date Last Indicated Resolved Time COVID-19 Rule Out Comment:04/29/2020 Negative (PAT) 02/20/2020 COVID19 NEGATIVE (PAT) 02/23/2020 02/23/2020 02/23/2020 10:42 AM EDT documented as of this encounter Care Teams Printer Technician Relationship Specialty Start Date End Date Joe Delaney MD [facility] [place], [place] [phone] PCP - General Internal Medicine 11/17/18 [place] [address] [place] [address] Referring Physician Internal Medicine 11/17/18 Wan Rodríguez [facility] Urology [place] [phone] 06/02/19 Rozina Petersen MD Gastroenterology 03/30/20 documented as of this encounter
--- OUTSIDE RECORDS SUMMARY | 2024-12-18 10:50 | XMS_ITS | Encounter Summary ---
Author Organization [facility] Address [address] [place] [address] Phone Care Team Providers Care Oil Distributor Name Role Phone Joe Delaney MD Primary Care Provider [phone] Twan Davis MD Unavailable [phone] Wan Rodríguez Unavailable [phone] Rozina Petersen MD Unavailable Encounter Details Date Type Department Care Team Description 05/05/2020 Email from [facility] Internal Medicine [address] [place] [phone] [place] [address] [place] [address] [phone] Social History Tobacco Use Types Packs/Day Years [...] Visit Internal Medicine Joe Delaney MD [address] [place], [place] [phone] 02/03/2025 Office Visit Pain Medicine Patricia Sotelo PA [address] [place], [place] [phone] documented as of this encounter Visit Diagnoses Not on filedocumented in this encounter Care Teams Oil Distributor Relationship Specialty Start Date End Date Joe Delaney MD [address] [place], [place] [phone] PCP - General Internal Medicine 11/17/18 Twan Davis MD [address] [place] [address] Referring Physician Internal Medicine 11/17/18 Wan Rodríguez [facility] [place] [address] 06/02/19 Rozina Petersen MD Gastroenterology 03/30/20 documented as of this encounter
--- OUTSIDE RECORDS SUMMARY | 2024-12-18 10:50 | XMS_ITS | Encounter Summary ---
Author Organization [facility] Address [address] [place] [address] Phone Care Team Providers Care Skin Washer Name Role Phone Joe Delaney MD Primary Care Provider Twan Davis MD Unavailable [phone] Wan Rodríguez Unavailable [phone] Roznia Petersen MD Unavailable Encounter Details Date Type Department Care Team Description 11/20/2016 Conversion Endocrinology [address] [place] [address] Jayjay Allred MD [address] [place], [place] [phone] Social History Tobacco Use Types Packs/Day Years [...] Medicine Joe Delaney MD [address] [place] [address] 02/03/2025 Office Visit Pain Medicine Patricia Sotelo PA [address] [place] [address] documented as of this encounter Procedures Procedure Name Priority Date/Time Associated Diagnosis Comments THYROID PEROXIDASE ANTIBODY Routine 11/20/2016 8:32 AM EDT THYROID STIMULATING IMMUNOGLOBULIN Routine 11/20/2016 8:32 AM EDT T3 Routine 11/20/2016 8:32 AM EDT TSH Routine 11/20/2016 8:32 AM EDT T4, FREE Routine 11/20/2016 8:32 AM EDT documented in this encounter Results * Thyroid stimulating immunoglobulin (11/20/2016 8:32 AM EDT) TSI 74 0 - 139 % [facility] 11/20/2016 8:32 AM EDT 11/20/2016 8:35 AM EDT Narrative [facility] - 11/26/2016 11:19 AM EDT Testing performed at: [BN] [facility] [address], [address], , Bereavement Program Coordinator: Carter Norton MD Jayjay Allred MD LAB BLOOD ORDERABLES [facility] * Thyroid peroxidase antibody (11/20/2016 8:32 AM EDT) Thyroid Peroxidase Ab 7 0 - 34 IU/mL [facility] 11/20/2016 8:32 AM EDT 11/20/2016 8:35 AM EDT Narrative [facility] - 11/21/2016 1:15 AM EDT Testing performed at: [RN] [facility] [place], [address] [place] [address], [place], [address], , Bereavement Program Coordinator: Lynn Dukes MD Jayjay Allred MD LAB BLOOD ORDERABLES Performing Organization Address [facility]/State/ZIP Co de Phone Number [facility] * TSH (11/20/2016 8:32 AM EDT) TSH 1.84 0.50 - 6.00 uIU/mL [facility] 11/20/2016 8:32 AM EDT 11/20/2016 8:35 AM EDT Narrative [facility] - 11/20/2016 10:58 AM EDT Jayjay Allred MD LAB BLOOD ORDERABLES Performing Organization Address [facility] Co de Phone Number [facility] [address] [place], [place] [phone] * T3 (11/20/2016 8:32 AM EDT) T3, Total 1.4 0.7 - 1.7 ng/ml [facility] 11/20/2016 8:32 AM EDT 11/20/2016 8:35 AM EDT Narrative [facility] - 11/20/2016 10:58 AM EDT Jayjay Allred MD LAB BLOOD ORDERABLES Performing Organization Address [facility] Co de Phone Number [facility] [address] [place], [place] [phone] * T4, free (11/20/2016 8:32 AM EDT) Free T4 0.87 0.75 - 1.54 ng/dL [facility] 11/20/2016 8:32 AM EDT 11/20/2016 8:35 AM EDT Narrative [facility] - 11/20/2016 10:58 AM EDT Jayjay Allred MD LAB BLOOD ORDERABLES Performing Organization Address [facility] Co de Phone Number [address] . [place], [place] [phone] documented in this encounter Visit Diagnoses Not on filedocumented in this encounter Additional Health Concerns Infection Onset Date Last Indicated Resolved Time COVID-19 Rule Out Comment:04/29/2020 Negative (PAT) 02/20/2020 COVID19 NEGATIVE (PAT) 02/23/2020 02/23/2020 02/23/2020 10:42 AM EDT documented as of this encounter Care Teams Skin Washer Relationship Specialty Start Date End Date Joe Delaney MD [address] [place], [place] [phone] PCP - General Internal Medicine 11/17/18 Twan Davis MD [address] [place] [address] Referring Physician Internal Medicine 11/17/18 Wan Rodríguez [facility] [place] [address] 06/02/19 Rozina Petersen MD Gastroenterology 03/30/20 documented as of this encounter
--- OUTSIDE RECORDS SUMMARY | 2024-12-18 10:50 | XMS_ITS | Encounter Summary ---
Author Organization [facility] Address [address] [place] [address] Phone Care Team Providers Care Seat Nailer Name Role Phone Joe Delaney MD Primary Care Provider [phone] Twan Davis MD Unavailable [phone] Wan Rodríguez Unavailable [phone] Rozina Petersen MD Unavailable Encounter Details Date Type Department Care Team Description 11/30/2022 Email from [facility] Orthopedics [address] [place] [phone] Kimberly Herndon PA [address] [place] [address] Social History Tobacco Use Types Packs/Day [...] Office Visit Internal Medicine Joe Delaney MD [address] [place] [address] 02/03/2025 Office Visit Pain Medicine Patricia Sotelo PA [address] [place], [place] [phone] documented as of this encounter Visit Diagnoses Not on filedocumented in this encounter Care Teams Seat Nailer Relationship Specialty Start Date End Date Joe Delaney MD [address] [place] [address] PCP - General Internal Medicine 11/17/18 Twan Davis MD [address] [place] [address] Referring Physician Internal Medicine 11/17/18 Wan Rodríguez [facility] [place] [address] 06/02/19 Rozina Petersen MD Gastroenterology 03/30/20 documented as of this encounter
--- OUTSIDE RECORDS SUMMARY | 2024-12-18 10:50 | XMS_ITS | Encounter Summary ---
Author Organization [facility] Address [address] [place] [address] Phone Care Team Providers Care Dairy Inspector Name Role Phone Joe Delaney MD Primary Care Provider Twan Davis MD Unavailable [phone] Wan Rodríguez Unavailable [phone] Rozina Petersen MD Unavailable Encounter Details Date Type Department Care Team Description 12/27/2015 Conversion Private Practice - Procedural [address] [place] [phone] Geronimo Salguero MD [address] [place] [address] Social History Tobacco Use Types Packs/Day Years Used Date Smoking Tobacco: Never Assessed Sex Assigned at Date Recorded Male 03/28/2020 2:09 AM E DT Job Start Date Occupation Industry Not on file Not on file Not on file documented as of this encounter Progress Notes * Geronimo Bennett MD - 12/27/2015 5:21 AM EDT Clinical List Update Reason for this update: Medication Update Medication List Changes - Changed medication from TOPROL XL TBCR 50 MG (METOPROLOL SUCCINATE) 1 by mouth daily to TOPROL XL TBCR 50 MG (METOPROLOL SUCCINATE) 1 by mouth twice a day - Signed Rx of TOPROL XL TBCR 50 MG (METOPROLOL SUCCINATE) 1 by mouth twice a day; #60[Unspecified] x 6; Signed; Entered by: Merle Damico LPN; Authorized by: Geronimo Salguero MD; Method used: Electronically to [facility] [place] [phone]*, [address] [place] [address], Ph: [phone] or 3 [phone], Fax: [phone] Prescriptions: TOPROL XL TBCR 50 MG (METOPROLOL SUCCINATE) 1 by mouth twice a day #60[Unspecified] x 6 Entered by: Merle Damico LPN Authorized by: Geronimo Salguero MD Signed by: Merle Damico LPN on 12/27/2015 Method used: [facility] [phone][facility] (retail) [address] [place] [address] Ph: [phone] or [phone] Fax: [phone] RxID: [id number] Left message for patient to call the office, to inform him that DR Salguero would like him to increasehis toprol xl 50 mg po from once daily to twice a day. Merle Damico LPN December 27, 2015 5:24 PM Patient instructed and agreeable, states he is out of AfibSaino Damico LPN December 29, 2015 11:13 AM Please note, this documentation has been converted into the [employer] EHR from our [employer] EMR forinformational purposes only. This documentation must not be released or used for legal purposes as the note is missing the responsible provider???s signature. A copy of the legal medical record can be obtained or printed only from the [employer] EMR. documented in this encounter Plan of Treatment Upcoming Encounters Date Type Specialty Care Team Description 01/25/2025 Office Visit Internal Medicine Joe Delaney MD [facility] [place] [address] 02/03/2025 Office Visit Pain Medicine Patricia Sotelo PA [address] [place] [address] documented as of this encounter Visit Diagnoses Not on filedocumented in this encounter Additional Health Concerns Infection Onset Date Last Indicated Resolved Time COVID-19 Rule Out Comment:04/29/2020 Negative (PAT) 02/20/2020 COVID19 NEGATIVE (PAT) 02/23/2020 02/23/2020 02/23/2020 10:42 AM EDT documented as of this encounter Care Teams Dairy Inspector Relationship Specialty Start Date End Date Joe Delaney MD [address] [place] [address] PCP - General Internal Medicine 11/17/18 [place] [address] [place] [address] Referring Physician Internal Medicine 11/17/18 Wan Rodríguez [facility] [place] [address] 06/02/19 Rozina Petersen MD Gastroenterology 03/30/20 documented as of this encounter
--- OUTSIDE RECORDS SUMMARY | 2024-12-18 10:50 | XMS_ITS | Continuity of Care Document ---
Author Organization [facility] Address [address], [address] [place] [address] Phone [phone] Care Team Providers Care Board Machine Set Up Operator Name Role Phone Patricia Sotelo Care Team Information Receive r [phone] Joe Delaney M.D. Care Team Information Recei marlon [phone] Problems Active Problems Provider Date Essential hypertension CHANDRA Kramer Onse t: 10/01/2024 Atrial fibrillation CHANDRA Kramer Onset: 10/01/2024 Social History Type Date Description Comments Sex Unknown ETOH Use Denies alcohol use Tobacco Use Start: Unknown Does Not Currently Smoke Recreational Drug Use Denies Drug Use Allergies and adverse reactions Active Allergies Criticality Reaction Severity Comments Date Penicillin Unable to assess criticality 10/01/2024 Medications Active Medications SIG Qnty Indications Ordering Provider Date [id number] Tablets Unknown Losartan [id number] Tablets Joe Delaney M.D. Vital Signs Date Vital Result Comment 10/01/2024 10:14am Height 73.5 inches 6'1.50 Weight 223.25 lb BMI (Body Mass Index) 29.1 kg/m2 Medical Devices Description No Information Available Encounters Type Date Location Provider Dx Diagnosis Office Visit 10/01/2024 10:00a Main Office [facility] CHANDRA Kramer M17.11 Unilateral primary osteoarthritis, right knee Assessments Date Code Description Provider 10/01/2024 M17.11 Unilateral primary osteoarth ritis, right knee CHANDRA Kramer Plan of Treatment No Information Available Functional Status Functional Condition Comment Date Status .None Active Mental Status Description No Information Available Referrals Description No Information Available
--- OUTSIDE RECORDS SUMMARY | 2024-12-18 10:50 | XMS_ITS | Encounter Summary ---
Author Organization [facility] Address [address] [place] [address] Phone Care Team Providers Care Educational Program Assistant Name Role Phone Joe Delaney MD Primary Care Provider Twan Davis MD Unavailable [phone] Wan Rodríguez Unavailable Rozina Petersen MD Unavailable Encounter Details Date Type Department Care Team Description 02/19/2017 Conversion Internal Medicine [address] [place] [phone] Joe Delaney MD [address] [place], [place] [id number] Social History Tobacco Use Types Packs/Day Years Used Date Smoking Tobacco: Never Assessed Sex Assigned at Date Recorded Male 03/28/2020 2:09 AM E DT Job Start Date Occupation Industry Not on file Not on file Not on file documented as of this encounter Progress Notes * Joe Delaney MD - 02/19/2017 9:16 AM EDT History of Present Illness Reason for visit: routine follow-up Chief Complaint: Meds, chronic Comments: Feels well overall. Rt knee hurts, saw Ortho in past. Went for Acupuncture recently whichhas helped. Saw Urologist in [place] and states PSA went down from 9 to 6. Also aching feeling in Prostate is better. Takes Vit K2 and B3. Occas bouts of A Fib but better than past and is aware of triggers more than in past. States stopped Flecainide on own, only takes it prn. GI and Gerd sx resolved off of this med. Past Medical History: Thyroid nodules. Htn. Elev PSA. . A-fib. . Gerd. Allergic rhinitis. BPH. Past Surgical History: Tonsillectomy, childhood; . Dental implants. . Prost bx. Social History: Marital Status: . . Number of Children: 3.. Place of : [place]. 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 Sleep History: 6-8 hrs;.Travel History: [place];. Tobacco use: never smoker. Passive smoke exposure: no. Alcohol use:yes. Alcohol use Frequency:social. Drug use: never. HIV high risk behavior: no. Caffeine use (drinks/day):3. Exercise (times/week): 3. Seatbelt use (%): 100. 2 cats (for 2 years), a dog. . Platelets on 09/17/2016 was 296. Hemoglobin on 09/17/2016 was 13.4.Hematocrit on 09/17/2016 was 41.4. WBC on 09/17/2016 was 5.2. Glucose on 09/17/2016 was 87. BUN on 09/17/2016 was 8. Creatinine on 09/17/2016 was 1.0. Calcium on 09/17/2016 was 10.1. Total Protein on 09/17/2016 was 7.1. Albumin on 09/17/2016 was 4.6. Total Bilirubin on 09/17/2016 was 0.37. SGOT on 09/17/2016 was 25.Sodium on 09/17/2016 was 140. Potassium on 09/17/2016 was 4.2. Chloride on 09/17/2016 was 102. Total CO2 on 09/17/2016 was 32.3. SGPT on 09/17/2016 was 33. Anion Gap on 09/17/2016 was 10. Globulin Total on 09/17/2016 was 2.5. Colonoscopy exam on 11/11/2012 was complete.<no value> Cholesterol on 09/17/2016 was 169. HDL on 09/17/2016 was 41. Triglyceride on 09/17/2016 was 122. LDL on 09/17/2016 was 104. PSA on 05/10/2016 was 8.96. Medications: (prior to this visit) - verified by patient or patient it sales representative LOSARTAN POTASSIUM 100 MG TABS [...] Systems General: Denies fevers, chills, sweats, anorexia, fatigue. Cardiovascular: Denies chest pains, palpitations, syncope. Respiratory: Denies cough, wheezing. Gastrointestinal: Denies change in bowel habits, abdominal pain, bloating, heartburn, reflux, seeHPI. Genitourinary: Denies discharge, urinary frequency, see HPI. Hepatitis C Testing: Patient refused test Vital Signs Entering Staff: Cecy Hernadez LPN February 19, 2017 9:16 AM Entered weight: 220.8 lb. Calculated weight: 220.80 lb. (100.36kg.) Height: 74in.(187.96cm.) Blood Pressure: 114/90 Pulse Rate: 66 Expanded BP Assessment Right arm BP: 122/84 mm Hg Apical Pulse Rate: 64 O2 Sat: 96% on Room Air - At Rest Body Mass Index in-lb BMI (in-lb) 28.45 Physical Exam General Appearance: well nourished, well hydrated General comments: appears well. Skin: warm and dry, no rash Head: normocephalic Respiratory: no accessory muscle use, equal air expansion, clear to auscultation, no rales, no rhonchi, no evidence of consolidation, no wheezes Cardiovascular: NL S1/S2, no murmurs, no S3/S4 or gallop rhythm, no carotid bruits, carotid pulses palpable, no edema, no JVD Cardiovascular Comments: regular normal S1S2 Gastrointestinal (Abdomen): abdomen soft w/o masses, non-distended/non-tender Musculoskeletal Exam: Gait and station: normal Digits and nails: normal Psychiatric: Judgment, insight intact, orientated to time/place/person, intact for recent and remote events Preventive Care/Screening EKG: complete (12/27/2015) Colonoscopy: complete (11/11/2012) BMI: 28.45 (02/19/2017) Blood Pressure: 114/90 (02/19/2017) Tobacco use: never smoker (02/19/2017) Alcohol use: yes (02/19/2017) Drug use: never (02/19/2017) CHOLESTEROL: 169 (09/17/2016) HDL: 41 (09/17/2016) LDL: 104 (09/17/2016) TRIGLYCERIDE: 122 (09/17/2016)8.96 (05/10/2016) PNEUMOCOCCAL: refused (07/18/2012) Prevnar 13: refused (09/07/2016) FLU VAX: 05/08/2016 TDAP: Done (02/19/2017) Zostavax: refused (02/19/2017) Assessment Problems: Assessed ANXIETY as improved - Joe Delaney MD - Signed Assessed ATRIAL FIBRILLATION, PAROXYSMAL as improved - Joe Delaney MD - Signed Assessed ESSENTIAL HYPERTENSION as improved - Joe Delaney MD - Signed Assessed BENIGN PROSTATIC HYPERPLASIA as improved - Joe Delaney MD - Signed Assessed PSA, INCREASED as improved - Joe Delaney MD - Signed Assessed OSTEOARTHRITIS, KNEE, RIGHT as unchanged - Joe Delaney MD - Signed Assessed KEY'S ESOPHAGUS as improved - Joe Delaney MD - Signed Comments: Last tetanus over 10 yrs Works outdoors a lot, prone to minor trauma. Plan Medications (added/changed): FLECAINIDE ACETATE 50 MG TABS (FLECAINIDE ACETATE) Pt takes prn for A Fib, not qd Medications (removed): ACIPHEX 20 MG TBEC (RABEPRAZOLE SODIUM) one po qd - Patient preference CARAFATE 1 GM/10ML SUSP (SUCRALFATE) one gram po tid. - Other Medications (added/changed): FLECAINIDE ACETATE 50 MG TABS (FLECAINIDE ACETATE) Pt takes prn for A Fib, not qd Medications (removed): ACIPHEX 20 MG TBEC (RABEPRAZOLE SODIUM) one po qd - Patient preference CARAFATE 1 GM/10ML SUSP (SUCRALFATE) one gram po tid. - Other Comments: order Tdap Continue meds. Weight Management: no New Orders: SNOMED-CT: [id number] Patient Encounter for Meaningful Use [[id number]] T4, FREE [5015] TSH [5020] Comprehensive Metabolic Profile [id number] [73126] Iron binding, Total Iron, Iron Saturation Panel [4140] CBC,manual diff if indicated [id number] [30676] Disposition: return to clinic in 6 months, lab Dr Davis Tdap: Done Tdap by: Cecy Hernadez LPN Tdap provided by: floor-stock Tdap Mfr: Weave Tdap Trade Name: Boostrix Tdap Rte: intramuscular Tdap Lot: [id number] Tdap [facility] number: [id number] Tdap Exp: 03/21/2019 Tdap Site: left arm Tdap: Vaccine Information Sheet given (11/13/2016) Zostavax: refused Zostavax Trade Name: Zostavax Injections Medication List Reviewed Allergy List Reviewed next appt 08/19/2017 with dcg at 9:20 am appt card handed to patient. labs scheduled for 08/12/2017 lab slips given to patient end of visit summary handed to patient. Cecy Whitten MA February 19, 2017 10:08 AM Please note, this documentation has been converted into the [employer] EHR from our [employer] EMR forinformational purposes only. This documentation must not be released or used for legal purposes as the note is missing the responsible provider???s signature. A copy of the legal medical record can be obtained or printed only from the [employer]. yes Please note, this documentation has been converted into the [employer] EHR from our [employer] EMR forinformational purposes only. This documentation must not be released or used for legal purposes as the note is missing the responsible provider???s signature. A copy of the legal medical record can be obtained or printed only from the [employer]. cc send to Please note, this documentation has been converted into the [employer] EHR from our [employer] EMR forinformational purposes only. This documentation must not be released or used for legal purposes as the note is missing the responsible provider???s signature. A copy of the legal medical record can be obtained or printed only from the [employer] EMR. documented in this encounter Plan of Treatment Upcoming Encounters Date Type Specialty Care Team Description 01/25/2025 Office Visit Internal Medicine Joe Delaney MD [address] [place], [place] [id number] 02/03/2025 Office Visit Pain Medicine Patricia Sotelo PA [address] [place] [address] documented as of this encounter Visit Diagnoses Not on filedocumented in this encounter Additional Health Concerns Infection Onset Date Last Indicated Resolved Time COVID-19 Rule Out Comment:04/29/2020 Negative (PAT) 02/20/2020 COVID19 NEGATIVE (PAT) 02/23/2020 02/23/2020 02/23/2020 10:42 AM EDT documented as of this encounter Care Teams Educational Program Assistant Relationship Specialty Start Date End Date Joe Delaney MD [address] [place] [address] PCP - General Internal Medicine 11/17/18 [place] [address] [place] [address] Referring Physician Internal Medicine 11/17/18 Wan Rodríguez [facility] [place] [address] 06/02/19 Rozina Petersen MD Gastroenterology 03/30/20 documented as of this encounter
--- OUTSIDE RECORDS SUMMARY | 2024-12-18 10:50 | XMS_ITS | Encounter Summary ---
Author Organization [facility] Address [address] [place] [address] Phone Care Team Providers Care Cemetery Keeper Name Role Phone Joe Delaney MD Primary Care Provider [phone] Twan Davis MD Unavailable [phone] Wan Rodríguez Unavailable Rozina Petersen MD Unavailable Encounter Details Date Type Department Care Team Description 02/23/2020 Abstract Infection Prevention [address] [place] [id number] Angelina Brothers Social History Tobacco Use Types Packs/Day Years [...] Visit Internal Medicine Joe Delaney MD [address] [place], [place] [phone] 02/03/2025 Office Visit Pain Medicine Patricia Sotelo PA [address] [place] [address] documented as of this encounter Visit Diagnoses Not on filedocumented in this encounter Additional Health Concerns Infection Onset Date Last Indicated Resolved Time COVID-19 Rule Out Comment:04/29/2020 Negative (PAT) 02/20/2020 COVID19 NEGATIVE (PAT) 02/23/2020 02/23/2020 02/23/2020 10:42 AM EDT documented as of this encounter Care Teams Cemetery Keeper Relationship Specialty Start Date End Date Joe Delaney MD [facility] [place] [address] PCP - General Internal Medicine 11/17/18 Twan Davis MD [address] [place] [address] Referring Physician Internal Medicine 11/17/18 Wan Rodríguez [facility] [place] [address] 06/02/19 Rozina Petersen MD Gastroenterology 03/30/20 documented as of this encounter
--- OUTSIDE RECORDS SUMMARY | 2024-12-18 10:50 | XMS_ITS | Encounter Summary ---
Author Organization [facility] Address [address] [place] [address] Phone Care Team Providers Care Procurement Inspector Name Role Phone Joe Delaney MD Primary Care Provider [phone] Twan Davis MD Unavailable [phone] Wan Rodríguez Unavailable Rozina Petersen MD Unavailable Encounter Details Date Type Department Care Team Description 09/20/2016 Conversion Endocrinology [address] [place] [phone] Jayjay Allred MD [address] [place] [address] Social History Tobacco Use Types Packs/Day Years Used Date Smoking Tobacco: Never Assessed Sex Assigned at Date Recorded Male 03/28/2020 2:09 AM E DT Job Start Date Occupation Industry Not on file Not on file Not on file documented as of this encounter Consult Notes * Jayjay Allred MD - 09/20/2016 2:31 AM EST Department of Endocrinology and Metabolism Jayjay Allred MD, [facility] [place] [place], [place] History from: patient Reason for visit: see chief complaint Chief Complaint: New Patient Visit HPI: 66-year-old white male with Thyroid Nodules here in consultation from Dr. Joe Delaney for evaluation and treatment recommendations. He was incidentally found to have thyroid nodules on carotid ultrasound and thyroid ultrasound promptly ordered to further evaluate. Thyroid ultrasound 11/22/16 showed showed an enlarged, heterogeneous right thyroid [...] daughter has small thyroid nodules which are being monitored. 09/17/16: TSH 2.70 and free T4 1.05. He has a history of atrial fibrillation and is now on anticoagulation using Xarelto. The [place] Thyroid Association (DEREK) and the AmericanAssociation of Clinical Endocrinologists (AACE) recommend ultrasound-guided thyroid biopsy of thyroid nodules > or = 10 mm since they are at an increased risk for being Thyroid cancer. Discussed the thyroid biopsy procedure in detail with patient, including risks, benefits and alternatives. We discussed all the management options for thyroid nodules and patient requested to have a thyroidbiopsy to evaluate for Thyroid Cancer. Today he appears clinically euthyroid, vitals are stable, he does not appear to have any mass effect from his thyroid gland and he is in no acute distress. Past Medical History(reviewed history from 09/07/2016- no changes required): Thyroid nodules. Htn. Elev PSA. . Back Pain. A-fib. . Gerd. Allergic rhinitis. BPH. Thyroid nodules. Htn. Elev PSA. . Back Pain. A-fib. . Gerd. Allergic rhinitis. BPH. Past Surgical History (reviewed history from 07/08/2014 - no changes required): Tonsillectomy, childhood; . [place] teeth extracted;. Dental implants. . Prost bx. Family History reviewed - no changes required Additional comments:Mother age 88, kidney cancer, hysterectomy, breast cancer, cancerous colonpolyp. Father is , at age 83, CT suspected. Had high PSA but not Ca. 1 brother is alive and well. 1 sister is alive and well. Social History (reviewed history from 09/07/2016 - no changes required): Marital Status: . . Number of Children: 3. Place of : [place]. 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 Sleep History: 6-8 hrs;. Travel History: [place];. Tobacco use: never smoker. Passive smoke exposure: no. Alcohol use:yes. Alcohol use Frequency:social. Drug use: never. HIV high risk behavior: no. Caffeine use (drinks/day): 3. Exercise (times/week): 3. Seatbelt use (%):100. 2 cats (for 2 years), a dog. . Risk Factors Tobacco use: never smoker Passive smoke exposure: no Alcohol use: yes Drug use: never HIV high risk behavior: no Caffeine use (drinks/day): 3 Exercise (times/week): 3 Seatbelt use (%): 100 Review of Systems General: Denies fevers, chills, sweats, anorexia, fatigue, malaise, weight loss, weight gain, headache, problems sleeping. Eyes: Denies blurring, diplopia, irritation, discharge, vision loss, eye pain, dry eyes, photophobia, eye trauma, monocular vision. Ears/Nose/Throat: Denies earache, ear discharge, tinnitus, decreased [...] balance, headache, migraine, memory loss, numbness, speech difficulty,confusion. Psychiatric: Denies depression, anxiety, memory loss, mental disturbance, suicidal ideation, hallucinations, paranoia, panic attacks, bipolar. Endocrine: Denies cold intolerance, heat intolerance, polydipsia, polyphagia, polyuria, weight change, hair loss, hirsutism. Heme/Lymphatic: Denies abnormal bruising, bleeding, enlarged lymph nodes. Allergic/Immunologic: Denies urticaria, hay fever, persistent infections, HIV exposure, food allergies. All other systems reviewed and found to be non-contributory Allergies: PCN (Moderate) AMLODIPINE BESYLATE (AMLODIPINE BESYLATE) (Moderate) PENICILLIN (Moderate) Intake Form: Vital Signs Entering Staff: Lorne Pickard MA September 20, 2016 2:32 PM Entered weight: 219 lb. Calculated weight: 219 lb. (99.55kg.) Height: 74in.(187.96cm.) Expanded BP Assessment Left Arm BP: 134/80 mm Hg Pulse Rate: 82 Body Mass Index in-lb BMI (in-lb) 28.22 Physical Exam General appearance: well nourished, well [...] no rales, rhonchi, or wheezes Cardiovascular Auscultation: Irregularly irregular, no murmur, rub, or gallop Pedal pulses: pulses 2+, symmetric Gastrointestinal Abdomen: soft, non-tender, no masses, bowel sounds normal Hernia: no hernias Lymphatic Neck: no cervical adenopathy Digits and nails: no clubbing, cyanosis, petechiae, or nodes Head and neck: normal alignment and mobility Skin Inspection: no rashes, lesions, or ulcerations Neurologic Reflexes: 2+, symmetric, no pathological reflexes Motor/Strength: all extremities normal Mental Status Exam Judgment, insight: intact Mood and affect: no depression, anxiety, or agitation Preventive Care/Screening EKG: complete (12/27/2015) Colonoscopy: complete (11/11/2012) BMI: 28.22 (09/20/2016) Blood Pressure: 134/80 (09/20/2016) Tobacco use: never smoker (09/20/2016) Alcohol use: yes (09/20/2016) Drug use: never (09/20/2016) CHOLESTEROL: 169 (09/17/2016) HDL: 41 (09/17/2016) LDL: 104 (09/17/2016) TRIGLYCERIDE: 122 (09/17/2016) PSA: 8.96 (05/10/2016) PNEUMOCOCCAL: refused (07/18/2012) Prevnar 13: refused (09/07/2016) FLU VAX: 05/08/2016 Assessment Allergies: PCN (Moderate) AMLODIPINE BESYLATE (AMLODIPINE BESYLATE) (Moderate) PENICILLIN (Moderate) Problems (including changes): ANEMIA, MICROCYTIC (ICD-281.9) (QJW48-S53.9) GOITER, MULTINODULAR (ICD-241.1) (FDT76-U44.2) HEMORRHOIDS (ICD-455.6) (BWB66-Z66.9) KEY'S ESOPHAGUS (ICD-530.85) (OHH87-M84.70) THYROID NODULES (ICD-241.0) (ACJ20-J24.1) ANXIETY (ICD-300.00) (YUC26-J05.9) AURAS (ICD-346.50) (YYU27-I47.109) TIA (ICD-435.9) (ZYF27-O16.9) ATRIAL FIBRILLATION, PAROXYSMAL (ICD-427.31) (IEI59-G63.0) LUMBAGO (ICD-724.2) (KUJ75-Z93.5) HX OF BEE STING ALLERGY (ICD-V15.06) (XSZ05-Z63.030) ESSENTIAL HYPERTENSION (ICD-401.9) (ZUD61-T33) OSTEOARTHRITIS, KNEE, RIGHT (ICD-715.96) (MKQ15-D38.9) INGROWING NAIL (ICD-703.0) (HBX06-G98.0) KNEE PAIN, RIGHT (ICD-719.46) (GFK86-P35.561) ? ofADENOCARCINOMA, PROSTATE (ICD-185) (PCL49-U63) Sx of DEGENERATIVE JOINT DISEASE, KNEE (ICD-715.96) (TXS57-Y81.9) BENIGN PROSTATIC HYPERPLASIA (ICD-600.00) (YES59-K97.0) PSA, INCREASED (ICD-790.93) (LYV16-P73.2) SCREENING FOR UNSPECIFIED CONDITION (ICD-V82.9) (JDQ90-S75.9) SCREENING FOR LIPOID DISORDERS (ICD-V77.91) (VPG74-Y53.220) POSTNASAL DRIP (ICD-784.91) (ZRW88-A20.82) GERD (ICD-530.81) (KRK96-J85.9) Problem Assessments: Medications (including changes): LOSARTAN POTASSIUM [...] thyroid at least 1 hourprior to procedure. Impression: 66-year-old white male with Thyroid Nodules here in consultation from Dr. Joe Delaney for evaluation and treatment recommendations. Plan: Schedule ultrasound-guided Thyroid Biopsy of the 2 suspicious Right lobe thyroid nodules to evaluate for thyroid cancer. Lidocaine cream will be used as local anesthetic. Reviewed Thyroid ultrasound for suspicious nodules with patient, discussed thyroid biopsy procedurein detail, including risks, benefits and alternatives. After our discussion, patient requested to proceedwith scheduling the biopsy. Hold Xarelto for 4 days prior to procedure. Total visit time was 60 minutes with > 50% of time spent [...] visit with questions/concerns and they will be promptly addressed. Thank you Zaire for the opportunity to be involved in the care of this extremely pleasant patient of yours and for promptly identifying this problem. Will continue to follow closely, manage based on results of my evaluation started today and keep you updated every step of the way in helping your patient. If you have any questions or concerns please feel free to contact me at any time. Orders: SNOMED-CT: [id number] Patient Encounter for Meaningful Use [[id number]] [id number] - Comprehensive with high complexity [CPT-97029] cc: Joe Delaney MD Prescriptions: LIDOCAINE-PRILOCAINE 2.5-2.5 % CREA (LIDOCAINE-PRILOCAINE) Apply to area of thyroid at least 1 hourprior to procedure. #1 x 0 Entered and Authorized by: Jayjay Allred MD Signed by: Jayjay Allred MD on 09/20/2016 Method used: Electronically to [facility] [phone]* (retail) [address] [place] [address] Ph: [phone] or [phone] Fax: [phone] RxID: Injections Please note, this documentation has been converted into the [employer] EHR from our [employer] EMR forinformational purposes only. This documentation must not be released or used for legal purposes as the note is missing the responsible provider???s signature. A copy of the legal medical record can be obtained or printed only from the [employer] EMR. documented in this encounter Plan of Treatment Upcoming Encounters Date Type Specialty Care Team Description 01/25/2025 Office Visit Internal Medicine Joe Delaney MD [address] [place] [phone] 02/03/2025 Office Visit Pain Medicine Patricia Sotelo PA [address] [place], [place] [phone] documented as of this encounter Visit Diagnoses Not on filedocumented in this encounter Additional Health Concerns Infection Onset Date Last Indicated Resolved Time COVID-19 Rule Out Comment:04/29/2020 Negative (PAT) 02/20/2020 COVID19 NEGATIVE (PAT) 02/23/2020 02/23/2020 02/23/2020 10:42 AM EDT documented as of this encounter Care Teams Procurement Inspector Relationship Specialty Start Date End Date Jeo Delaney MD [address] [place] [address] PCP - General Internal Medicine 11/17/18 [place] [address] [place] [address] Referring Physician Internal Medicine 11/17/18 Wan Rodríguez [facility] [place] [address] 06/02/19 Rozina Petersen MD Gastroenterology 03/30/20 documented as of this encounter
--- OUTSIDE RECORDS SUMMARY | 2024-12-18 10:50 | XMS_ITS | Encounter Summary ---
Author Organization [facility] Address [address] [place] [address] Phone Care Team Providers Care Manager Card Name Role Phone Joe Delaney MD Primary Care Provider Twan Davis MD Unavailable [phone] Wan Rodríguez Unavailable Rozina Petersen MD Unavailable Encounter Details Date Type Department Care Team Description 11/20/2016 [facility] Information Management - Release of Information [address] [place] [phone] Load Provider, Historical Social History Tobacco Use Types Packs/Day Years Used Date Smoking Tobacco: Never Assessed Sex Assigned at Date Recorded Male 03/28/2020 2:09 AM E DT Job Start Date Occupation Industry Not on file Not on file Not on file documented as of this encounter Plan of Treatment Upcoming Encounters Date Type Specialty Care Team Description 01/25/2025 Office Visit Internal Medicine Joe Delaney MD [facility] [place], [place] [id number] 02/03/2025 Office Visit Pain Medicine Patricia Sotelo PA [address] [place], [place] [id number] documented as of this encounter Procedures Procedure Name Priority Date/Time Associated Diagnosis Comments METHYLMALONIC ACID Routine 11/20/2016 8: 32 AM EDT documented in this encounter Results * Methylmalonic Acid (11/20/2016 8:32 AM EDT) Methylmalonic Acid, S 137 0 - 378 nmol/L [facility] 11/20/2016 8:32 AM EDT 11/20/2016 8:36 AM EDT Narrative [facility] - 11/22/2016 4:32 PM EDT Testing performed at: [BN] [facility], [place], [address], , Program Developer: Carter Norton MD Historical Load Provider LAB BLOOD ORDER SCARLETT [facility] documented in this encounter Visit Diagnoses Not on filedocumented in this encounter Additional Health Concerns Infection Onset Date Last Indicated Resolved Time COVID-19 Rule Out Comment:04/29/2020 Negative (PAT) 02/20/2020 COVID19 NEGATIVE (PAT) 02/23/2020 02/23/2020 02/23/2020 10:42 AM EDT documented as of this encounter Care Teams Manager Card Relationship Specialty Start Date End Date Joe Delaney MD [facility] [place] [address] PCP - General Internal Medicine 11/17/18 [place] [address] [place] [address] Referring Physician Internal Medicine 11/17/18 Wan Rodríguez [facility] [place] [address] 06/02/19 Rozina Petersen MD Gastroenterology 03/30/20 documented as of this encounter
--- OUTSIDE RECORDS SUMMARY | 2024-12-18 10:50 | XMS_ITS | Encounter Summary ---
Author Organization [facility] Address [address] [place] [address] Phone Care Team Providers Care Channeler Insole Name Role Phone Joe Delaney MD Primary Care Provider [phone] Twan Davis MD Unavailable [phone] Wan Rodríguez Unavailable [phone] Rozina Petersen MD Unavailable Encounter Details Date Type Department Care Team Description 07/25/2023 Email from [facility] [address] [place] [phone] Kimberly Herndon PA [address] [place] [address] Social History Tobacco Use Types Packs/Day [...] Visit Internal Medicine Joe Delaney MD [address] [place] [address] 02/03/2025 Office Visit Pain Medicine Patricia Sotelo PA [address] [place], [place] [id number] documented as of this encounter Visit Diagnoses Not on filedocumented in this encounter Care Teams Channeler Insole Relationship Specialty Start Date End Date Joe Delaney MD [address] [place] [address] PCP - General Internal Medicine 11/17/18 Twan Davis MD [address] [place] [address] Referring Physician Internal Medicine 11/17/18 Wan Rodríguez [facility] [address] 06/02/19 Rozina Petersen MD Gastroenterology 03/30/20 documented as of this encounter
--- OUTSIDE RECORDS SUMMARY | 2024-12-18 10:50 | XMS_ITS | Encounter Summary ---
Author Organization [facility] Address [address] [place] [address] Phone Care Team Providers Care Dog Food Shredder Operator Name Role Phone Joe Delaney MD Primary Care Provider [phone] Twan Davis MD Unavailable [phone] Wan Rodríguez Unavailable [phone] Rozina Petersen MD Unavailable Encounter Details Date Type Department Care Team Description 12/01/2015 Conversion Internal Medicine [address] [place], [place] [id number] Peyton Darling NP [address] [place] [address] Social History Tobacco Use Types Packs/Day Years Used Date Smoking Tobacco: Never Assessed Sex Assigned at Date Recorded Male 03/28/2020 2:09 AM E DT Job Start Date Occupation Industry Not on file Not on file Not on file documented as of this encounter Progress Notes * Peyton Darling NP - 12/01/2015 2:30 AM EDT Supervising Physician: Joe Delaney MD History of Present Illness Reason for visit: Preoperative Clearance Chief Complaint: Decrease in visual acuity Comments: Pleasant 65 yo male presents for preoperative clearance prior to cataract surgery scheduled with Dr. Etta Mclean in [place] on 12/20/15. The pt notes a decrease in visual acuity. Pt denies a hx of an [place], CHF, CVA, CP, claudication, +palpitations, syncope, near syncope, lung disease, +HTN or DM. Pt recently dx with a-fib and is on Eliquis. Pt able to walk 1 block. No recent Prednisone or steroid use. Tobacco and ETOH use neg. He has an implant in his right eye, wears a contact on the left. He has 4 dental implants. He denies orthopnea, pedal edema, a hx of blood clots and/or PND. No previous anesthesia problems.. No hx of bleeding with surgery or injury. No easy bruising. Past Medical History: Htn. Elev PSA. . Back Pain. A-fib;. Gerd. Allergic rhinitis. BPH. Past Surgical History: Tonsillectomy, childhood; . Fred teeth extracted;. Dental implants. . Prost bx. Medications: (prior to this visit) - verified by patient or patient corporate sales representative LOSARTAN POTASSIUM 100 MG TABS (LOSARTAN POTASSIUM) one po qd ELIQUIS 5 MG TABS(APIXABAN) one po bid TOPROL XL TBCR 50 MG (METOPROLOL SUCCINATE) 1 by mouth daily Allergies: PCN (Moderate) AMLODIPINE BESYLATE (AMLODIPINE BESYLATE) (Moderate) PENICILLIN (Moderate) Review of Systems Eyes: Complains of see HPI. Vital Signs Entered weight: 237 lb. Calculated weight: 237 lb. (107.73kg.) Height: 74in.(187.96cm.) Temperature: 98.2 deg F. (36.8 deg C.) Blood Pressure: 130/82 Pulse Rate: 80 O2 Sat: 95% on Room Air - At Rest Body Mass Index in-lb BMI (in-lb) 30.54 Physical Exam General Appearance: well nourished, well hydrated Skin: warm and dry, normal palpation Head: normocephalic Eyes: Eye comments: Eye exam deferred. ENT (ears): L normal/clear, R normal/clear ENT (nose): normal nasal exam ENT (mouth and throat): pharynx w/o inflammation, oral mucosa normal, dentition good Neck: supple, no significant enlarged lymph nodes Neck comments: Trachea midline. Respiratory: clear to auscultation, no rales, no rhonchi, no evidence of consolidation, no wheezes Cardiovascular: NL S1/S2, no murmurs, no carotid bruits, no edema, no calf tenderness Gastrointestinal (Abdomen): abdomen soft w/o masses, non-distended/non-tender, normal bowel sounds Musculoskeletal Exam: Gait and station: normal Lymphatic: Neck: no enlarged lymph nodes, no tenderness Neurologic: DTR symmetric Psychiatric: Judgment, insight intact, no depression, no anxiety, no agitation Preventive Care/Screening EKG: complete(11/08/2015) Colonoscopy: complete (11/11/2012) BMI: 30.54 (12/01/2015) Blood Pressure: 130/82 (12/01/2015) Tobacco use: never smoker (11/08/2015) Alcohol use: yes (11/08/2015) Drug use: never (11/08/2015) CHOLESTEROL: 158 (05/09/2015) HDL: 36 (05/09/2015) LDL: 98 (05/09/2015) TRIGLYCERIDE: 120 (05/09/2015) PSA: 5.68 (02/09/2013) PNEUMOCOCCAL: refused (07/18/2012) FLU VAX: 05/20/2015 Assessment CATARACT (ICD-366.9) (EUE20-M71.9) PREOPERATIVE EXAMINATION NEC (ICD-V72.83) (AGV13-Y69.818) Comments: PMH as listed. New onset A-fib, now in sinus rhythm. Plan Comments: Most recent EKG by Dr. Salguero revealed that he was back in a NSR. Append to follow. New Orders: SNOMED-CT: [id number] Patient Encounter for Meaningful Use [[id number]] Injections Medication List Reviewed Allergy List Reviewed Please note, this documentation has been converted into the [employer] EHR from our [employer] EMR forinformational purposes only. This documentation must not be released or used for legal purposes as the note is missing the responsible provider???s signature. A copy of the legal medical record can be obtained or printed only from the [employer] EMR. Pt currently under Dr. Salguero's care for new onset a-fib. We prefer that he remain on Eliquis unless Dr. Mclean informs us otherwise. Suitable for cataract surgery. Please note, this documentation has been converted into the [employer] EHR from our [employer] EMR forinformational purposes only. This documentation must not be released or used for legal purposes as the note is missing the responsible provider???s signature. A copy of the legal medical record can be obtained or printed only from the [employer] EMR. agree Please note, this documentation has been converted into the [employer] EHR from our [employer] EMR forinformational purposes only. This documentation must not be released or used for legal purposes as the note is missing the responsible provider???s signature. A copy of the legal medical record can be obtained or printed only from the [employer] EMR. pre op faxed Please note, this documentation has been converted into the [employer] EHR from our [employer] EMR forinformational purposes only. This documentation must not be released or used for legal purposes as the note is missing the responsible provider???s signature. A copy of the legal medical record can be obtained or printed only from the [employer] EMR. documented in this encounter Plan of Treatment Upcoming Encounters Date Type Specialty Care Team Description 01/25/2025 Office Visit Internal Medicine Joe Delaney MD [address] [place] [phone] 02/03/2025 Office Visit Pain Medicine Patricia Sotelo PA [address] [place] [address] documented as of this encounter Visit Diagnoses Not on filedocumented in this encounter Additional Health Concerns Infection Onset Date Last Indicated Resolved Time COVID-19 Rule Out Comment:04/29/2020 Negative (PAT) 02/20/2020 COVID19 NEGATIVE (PAT) 02/23/2020 02/23/2020 02/23/2020 10:42 AM EDT documented as of this encounter Care Teams Dog Food Shredder Operator Relationship Specialty Start Date End Date Joe Delaney MD [address] [place] [address] PCP - General Internal Medicine 11/17/18 [place] [address] [place] [address] Referring Physician Internal Medicine 11/17/18 Wan Rodríguez [facility] [place] [facility] [place] [address] 06/02/19 Rozina Petersen MD Gastroenterology 03/30/20 documented as of this encounter
--- OUTSIDE RECORDS SUMMARY | 2024-12-18 10:50 | XMS_ITS | Clinical Summary ---
Author Organization [facility] Address [address] [place] [address] Phone Care Team Providers Care Digital Camera Technician Name Role Phone Joe Delaney MD Primary Care Provider [phone] Twan Davis MD Unavailable [phone] Wan Rodríguez Unavailable [phone] Rozina Petersen MD Unavailable Allergies Active Allergy Reactions Severity Noted Date Comments Amlodipine Other (See Comments) Low 02/22/2016 slept for three days Penicillin G Swelling Low 02/22/2016 In childhood Medications * Be aware that medications may not be up to date as of this document. ALWAYS verify current medications with the patient. Medication Sig Dispensed Refills Start Date End Date Status Magnesium Oxide 250 MG TABS Take 250 mg by mouth 2 (two) times a day 0 Active Xarelto 20 MG TABSIndications:P aroxysmal atrial fibrillation Take 1 tablet (20 mg total) by mouth daily 90 tablet 1 11/24/2021 Active cyclobenzaprine (FLEXERIL) 5 MG tablet Take 1 tablet (5 mg total) by mouth nightly as needed for muscle spasms 30 tablet 1 09/01/2024 Active meclizine (ANTIVERT) 12.5 MG tabletIndications :Benign paroxysmal positional vertigo, unspecified laterality Take 1 tablet (12.5 mg total) by mouth 3 (three) times a day as needed for dizziness 30 tablet 3 09/22/2024 Active flecainide (TAMBOCOR) 50 MG tablet 0 09/03/2024 Active losartan (COZAAR) 50 MG tabletIndications :Essential hypertension,Paro xysmal atrial fibrillation TAKE 1 TABLET(50 MG) BY MOUTH DAILY 90 tablet 1 12/14/2024 Active losartan (COZAAR) 50 MG tabletIndications :Essential hypertension,Paro xysmal atrial fibrillation Take 1 tablet (50 mg total) by mouth daily 90 tablet 1 06/09/2024 12/02/19 25 Discontinued(Reo rder) losartan (COZAAR) 50 MG tabletIndications :Essential hypertension,Paro xysmal atrial fibrillation Take 1 tablet (50 mg total) by mouth daily 90 tablet 1 12/01/2024 12/15/19 25 Discontinued doxycycline (VIBRA-TABS) 100 MG tablet Take 1 tablet (100 mg total) by mouth 2 (two) times a day for 10 days 20 tablet 0 12/07/2024 12/18/19 25 Active Problems Problem Noted Date Arthritis of carpometacarpal (CMC) joint s of both thumbs 12/02/2024 Neck pain 10/21/2024 Chronic pain of right knee 03/16/2024 Right low back pain 04/06/2021 Laryngopharyngeal reflux (LPR) 0 Goiter diffuse, adenomatous 05/21/2019 Multiple thyroid nodules 05/21/2019 Essential hypertension 11/16/2018 Benign prostatic hyperplasia without low er urinary tract symptoms 11/16/2018 Elevated PSA, less than 10 ng/ml 019 GERD without esophagitis 11/16/2018 Paroxysmal atrial fibrillation 6 Resolved Problems Problem Noted Date Resolved Date History of dizziness 01/20/2020 11/24/2021 Lymphadenopathy, axillary 01/06/20202021 Cervical lymphadenitis 12/02/2019 0 Encounters Date Type Specialty Care Team Description 12/13/2024 Refill Internal Medicine Joe Delaney MD Essential hypertension; Paroxysmal atrial fibrillation 12/07/2024 Office Visit Urgent Care Carter Kendrick MD Tick bite of left lower leg, initial encounter (Primary Dx); Cellulitis of left lower extremity 12/07/2024 Travel 12/06/2024 Email from [facility] Pain Medicine Jamison Castano MD 12/02/2024 Office Visit Pain Medicine Jamison Castano MD Chronic right-sided low back pain without sciatica (Primary Dx); Chronic pain of right knee; Arthritis of carpometacarpal (CMC) joints of both thumbs 12/02/2024 Travel 12/01/2024 Refill from [facility] Internal Medicine Joe Delaney MD Essential hypertension; Paroxysmal atrial fibrillation 10/21/2024 Office Visit Pain Medicine Jamison Castano MD Chronic right-sided low back pain without sciatica (Primary Dx); Chronic pain of right knee; Neck pain 10/21/2024 Travel 10/20/2024 Email from [facility] Internal Medicine Joe Delaney MD 10/20/2024 Email from [facility] Pain Medicine Jamison Castano MD 10/20/2024 Orders Only Radiology 10/12/2024 Email from [facility] Jamison Rosen MD 09/30/2024 Telephone Internal Medicine Joe Delaney MD 09/28/2024 Email from [facility] Internal Joe Calvin MD 09/22/2024 Office Visit Internal Medicine Joe Delaney MD Benign paroxysmal positional vertigo, unspecified laterality (Primary Dx) 09/22/2024 Travel from Last 3 Months Immunizations Name Administration Dates Next Due Covid-19 ([employer]) Dilution Required (Purple Cap) 10/15/2020,09/24/2020 Influenza Quad (Flublok) 0.5mL >18 Yrs 1 Pneumococcal PCV13 (Prevnar 13) 05/20/2018 Pneumococcal PPSV23 (Pneumovax 23) 06/02/2019 Tdap Vaccine > 7 Yrs 02/19/2017 Family History Medical History Relation Name Comments Healthy, No Significant History Brother Healthy, No Significant History Daughter 1 Healthy, No Significant History Daughter 2 Healthy, No Significant History Sister Healthy, No Significant History Son Relation Name Status Comments Brother Alive Daughter 1 Alive Daughter 2 Alive Father (Age 83) Mother (Age 87) Sister Alive Son Alive Social History Tobacco Use Types Packs/Day Years Used Date Smoking Tobacco: Never Smokeless Tobacco: Never Tobacco Cessation:Counseling Given: Not Answered Alcohol Use Standard Drinks/Week Comments Not Currently 0 (1 standard drink = 0.6 oz pur e alcohol) social Sex Assigned at Date Recorded Male 03/28/2020 2:09 AM E DT Job Start Date Occupation Industry Not on file Not on file Not on file COVID-19 Exposure Response Date Recorded In the last 10 days, have izabel anderson been in contact with someone who was confirmed or suspected to have Coronavirus/COVID-19? No / Unsure 12/07/2024 8:38 AM EDT Last Filed Vital Signs Vital Sign Reading Time Taken Comments Blood Pressure 136/80 12/07/2024 8:41 AM EDT Pulse 74 12/07/2024 8:41 AM EDT Temperature 36.1 ??C (97 ??F) 12/07/2024 8:41 AM EDT Respiratory Rate 18 12/07/2024 8:41 AM EDT Oxygen Saturation 97% 12/07/2024 8:41 AM EDT Inhaled Oxygen Concentration - - Weight 98 kg (216 lb) 12/07/2024 8:41 AM EDT Height 188 cm (6' 2 ) 12/07/2024 8:41 AM EDT Body Mass Index 27.73 12/07/2024 8:41 AM EDT Plan of Treatment Upcoming Encounters Date Type Specialty Care Team Description 01/25/2025 Office Visit Internal Medicine Joe Delaney MD [address] [place] [address] 02/03/2025 Office Visit Pain Medicine Patricia Sotelo PA [address] [place] [address] Health Maintenance Due Date Last Done Comments Colon Cancer Screening Fecal DNA 1950 Colon Cancer Screening Fecal Occult Blood Test 1950 Sigmoidoscopy Every 5 Years 1950 RSV Adult > 60+ Yrs (1 - 1-dose 60+ series) 2012 Lipid Panel 11/07/2023 11/06/2022, 11/03, 05/05/2019, Additional history exists COVID-19 Vaccine (2022- season) 2024 10/15/2020, 09/24/2020 Influenza Vaccine 03/05/2025 04/27/2021, (Declined), 06/02/2019 (Declined) Annual Medicare Well Visit 08/10/202508/10, 08/10/2024, 11/24/2021, Additional history exists Risk To Fall Survey Annual (Elderly Patients 65+) 08/10/2025 08/10/2024, 11/24/2021 DTaP / TDap / Td (2 - Td or Tdap) 02/19/2027 02/19/2017 Colon Cancer Screening Colonoscopy 02/11/2033 02/11/2023, 11/11/2012 Colorectal Cancer Screening 02/11/2033 Pneumococcal Vaccine Completed 06/02/2019, 05/20/20 18 Hepatitis C Testing Offered (born [id number]) Completed 11/17/2020 (Declined) PHQ Depression Screening Completed 025, 08/10/2024, 11/24/2021, Additional history exists RSV Ped < 20 months Aged Out No longe r eligible based on patient's age to complete this topic Zoster Recombinant Vaccine (RZV) (Shingrix) Discontinued Procedures Procedure Name Priority Date/Time Associated Diagnosis Comments X-RAY, C-SPINE, COMPLETE INCLUDING OBLIQUE, FLEX, EXT. Routine 10/21/2024 11:24 AM EDT Neck pain [facility] CT IMAGING ORDER Routine 10/20/2024 9:50 AM EDT [facility] DIAGNOSTIC IMAGING ORDER Routine 10/20/2024 9:39 AM EDT from Last 3 Months Results * X-Ray, C-Spine, Complete Including Oblique, Flex, Ext. (10/21/2024 11:24 AM EDT) Anatomical Region Laterality Modality Radiographic Kathie ging 10/21/2024 11:2 4 AM EDT Narrative 10/21/2024 11:58 AM EDT Exam: DX CER OBL FL EXT 6OR MORE VWS Clinical History: neck pain Comparison: Prior studies are presently not available for comparison. Technique: AP, oblique, and lateral as well as flexion and extension lateral views of cervical spine are submitted. Findings: No evidence of an acute fracture is visualized. The prevertebral soft tissues appear unremarkable. Normal lordotic curvature is visualized. There is joint space narrowing with marginal spurring at the C5/C6 and C6/C7 levels.. The neuralformen are grossly patent. No evidence of instability is noted with flexion or extension. Impression: No acute findings. No evidence of instability. Degenerative changes described. Procedure Note Cheryl Sheffield MD - 10/21/2024 Exam: DX CER OBL FL EXT 6OR MORE VWS Clinical History: neck pain Comparison: Prior studies are presently not available for comparison. Technique: AP, oblique, and lateral as well as flexion and extension lateral views of cervical spine are submitted. Findings: No evidence of an acute fracture is visualized. The prevertebral soft tissues appear unremarkable. Normal lordotic curvature is visualized. There is joint space narrowing with marginal spurring at the C5/C6 and C6/C7 levels.. The neuralformen are grossly patent. No evidence of instability is noted with flexion or extension. Impression: No acute findings. No evidence of instability. Degenerative changes described. Jamison Catsano MD [facility] IMG DIAGNOSTIC ORDERABLES * [facility] CT IMAGING ORDER (10/20/2024 9:50 AM EDT) Anatomical Region Laterality Modality Computed Tomogra phy Impressions 10/20/2024 9:58 AM EDT IMPRESSION: Impression: No acute process Electronically Signed by Kodi Sheikh MD 10/20/2024 9:58 AM Narrative 10/20/2024 9:58 AM EDT Patient: DILIP RESTIVE ?? : 1950 Procedure: CT HEAD WO CONTRAST Provider: MARU MEYER Clinical history: Dizziness, vertigo, worsening over 4 days Comparison: 08/29/2024 Technique: Images obtained in the axial, coronal and sagittal projection without intravenous contrast. CT imaging was performed utilizing dose reduction techniques including automated exposure control and iterative reconstruction technique. Findings: The ventricles and sulcal pattern are normal. No midline shift. No hemorrhage or mass. Other than calcification of the distal left vertebral artery the structures in the posterior fossa are intact. Procedure Note PROVIDER, RESULTS ROUTING - 10/20/2024 Patient: DILIP RESTIVE : 1950 Procedure: CT HEAD WO CONTRAST Provider: MARU MEYER Clinical history: Dizziness, vertigo, worsening over 4 days Comparison: 08/29/2024 Technique: Images obtained in the axial, coronal and sagittal projectionwithout intravenous contrast. CT imaging was performed utilizing dose reduction techniques including automated exposure control and iterativereconstruction technique. Findings: The ventricles and sulcal pattern are normal. No midline shift.No hemorrhage or mass. Other than calcification of the distal left vertebralartery the structures in the posterior fossa are intact. IMPRESSION IMPRESSION: Impression: No acute process Electronically Signed by Kodi Sheikh MD 10/20/2024 9:58 AM Results Routing Provider [facility] IMG CT ORD ERABLES * [facility] DIAGNOSTIC IMAGING ORDER (10/20/2024 9:39 AM EDT) Anatomical Region Laterality Modality Radiographic Kathie ging Narrative 10/20/2024 9:42 AM EDT Patient: DILIP SOLANO ?? : 1950 Procedure: XR CHEST 1 VIEW Provider: MARU MEYER Chest portable single view Clinical History: Dizziness x1 week, left-sided chest pain Technique: AP portable view of the chest was obtained. Comparison: August 2024 Findings: Heart size is prominent Aorta is tortuous. There is some mild elevation of the left hemidiaphragm with some left basilar atelectasis. The lungs are otherwise grossly clear. The costophrenic angles are sharp. Monitoring leads overlie the chest. Followup PA and lateral radiograph of the chest when possible is recommended. Electronically Signed by Anais Serrano MD 10/20/2024 9:42 AM Procedure Note PROVIDER, RESULTS ROUTING - 10/20/2024 Patient: DILIP SOLANO : 1950 Procedure: XR CHEST 1 VIEW Provider: MARU ORDONEZKELI Chest portable single view Clinical History: Dizziness x1 week, left-sided chest pain Technique: AP portable view of the chest was obtained. Comparison: August 2024 Findings: Heart size is prominent Aorta is tortuous. There is some mild elevation of the left hemidiaphragm with some leftbasilar atelectasis. The lungs are otherwise grossly clear. The costophrenic angles are sharp. Monitoring leads overlie the chest. Followup PA and lateral radiograph of the chest when possible isrecommended. Electronically Signed by Anais Serrano MD 10/20/2024 9:42 AM Results Routing Provider [facility] IMG DIAGNO STIC ORDERABLES from Last 3 Months Advance Directives For more information, please contact: [phone] (24 hours a day, Saturday-Saturday) Latest Code Status on File Code Status Date Activated Date Inactivated Comments Full Code 02/25/2020 11:59 AM 05/04/2020 8:47 AM BLS/ ACLS protocol per AHA Standards Care Teams Digital Camera Technician Relationship Specialty Start Date End Date Joe Delaney MD [address] [place] [address] PCP - General Internal Medicine 11/17/18 Twan Davis MD [address] [place] [address] Referring Physician Internal Medicine 11/17/18 Wan Rodríguez [facility] [place] [address] 06/02/19 Rozina Petersen MD Gastroenterology 03/30/20
--- OUTSIDE RECORDS SUMMARY | 2024-12-18 10:51 | XMS_ITS | Encounter Summary ---
Author Organization [facility] Address [address] [place] [address] Phone Care Team Providers Care Manager Card Name Role Phone Joe Delaney MD Primary Care Provider Twan Davis MD Unavailable [phone] Wan Rodríguez Unavailable Rozina Petersen MD Unavailable Encounter Details Date Type Department Care Team Description 05/20/2018 Conversion Internal Medicine [address] [place] [phone] Joe Delaney MD [address] [place], [place] [id number] Social History Tobacco Use Types Packs/Day Years Used Date Smoking Tobacco: Never Assessed Sex Assigned at Date Recorded Male 03/28/2020 2:09 AM E DT Job Start Date Occupation Industry Not on file Not on file Not on file documented as of this encounter Progress Notes * Joe Delaney MD - 05/20/2018 11:44 AM EDT History of Present Illness Reason for visit: routine follow-up Chief Complaint: chronic Comments: Pt states he is doing well. Had EGD in January. He states Dr Gagnon has him on Dexilant. Has occasional bouts of A.Fib, that he is aware of. Has a loop recorder. Generally occurs about once a month. Sometimes takes Propranolol when has occurences. REmains on Xarelto. Duration usually 10 hrs approx. Goes to Urologist at [place], states PSA is down to 4.7. Seen few mo ago. We haven't rec'dnotes from [place], I informed pt. Knees are about same, had stem cell injection. Asks about Testosterone levels in regards to A Fib. Past Medical History: Thyroid nodules. Htn. Elev PSA. . A-fib. . Gerd. Allergic rhinitis. BPH. Past Surgical History: Tonsillectomy, childhood; . Dental implants. . Prost bx. Social History (reviewed history from 09/19/2017 - no changes required): Marital Status: . . Number of Children: 3.. Place of : [place].. 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 Sleep History: 6-8 hrs;. Travel History: [place];. Tobacco use: never smoker. Passive smoke exposure: no. Alcohol use:yes. Alcohol use Frequency:social. Drug use: never. HIV high risk behavior: no. Caffeine use (drinks/day): 3. Exercise (times/week): 3.Seatbelt use (%): 100. 2 cats (for 2 years), a dog. . Glucose on 08/12/2017 was 83. BUN on 08/12/2017 was 12. Creatinine on 08/12/2017 was 0.9. Calcium on 08/12/2017 was 9.9. Total Protein on 08/12/2017 was 6.8. Albumin on 08/12/2017 was 4.5. Total Bilirubin on 08/12/2017 was 0.49. SGOT on 08/12/2017 was 19.Sodium on 08/12/2017 was 140. Potassium on 08/12/2017 was 4.1. Chloride on 08/12/2017 was 100. Total CO2 on 08/12/2017 was 29.9. SGPT on 08/12/2017 was 30. Colonoscopy exam on 11/11/2012 was complete.<no value>Cholesterol on 09/17/2016 was 169. HDL on 09/17/2016 was 41. Triglyceride on 09/17/2016 was 122. LDL on 09/17/2016 was 104. PSA on 04/30/2017 was 4.7. Free T-4 on 04/15/2017 was 1.04. TSH on 04/15/2017 was 1.57. T3 Total on 11/20/2016 was 140. Medications: (prior to this visit) - verified by patient or patient medical device sales representative LOSARTAN POTASSIUM 100 MG ORAL TABLET (LOSARTAN POTASSIUM) one po qd XARELTO 20 MG ORAL TABLET (RIVAROXABAN) one po qd PROPRANOLOL HCL TABLET (PROPRANOLOL HCL TABS) as needed when in Afib Allergies: PCN (Moderate) AMLODIPINE BESYLATE (AMLODIPINE BESYLATE) (Moderate) PENICILLIN (Moderate) Review of Systems Cardiovascular: Denies chest pains, palpitations, syncope. Respiratory: Denies cough, wheezing. Gastrointestinal: Denies change in bowel habits, abdominal pain, melena, heartburn, reflux, see HPI. Genitourinary: Denies dysuria, impotence, decreased libido. Endocrine: Denies cold intolerance, heat intolerance, polydipsia, polyphagia. Heme/Lymphatic: Denies bleeding. medication list verified - done Signs Entering Staff: Cecy Whitten MA May 20, 2018 11:45 AM Entered weight: 213 lb., 8 oz. Calculated weight: 213.50 lb. (97.05kg.) Height: 74in.(187.96cm.) Blood Pressure: 102/56 Pulse Rate: 60 Pulse rhythm: regular Expanded BP Assessment Right arm BP: 120/80 mm Hg Apical Pulse Rate: 60 O2 Sat: 98% on Room Air - At Rest Body Mass Index in-lb BMI (in-lb) 27.51 Physical Exam General Appearance: well nourished, well hydrated General comments: robust Skin: warm and dry, no rash Neck: supple, no significant enlarged lymph nodes, no neck masses, no pain/tenderness with palpation, thyroid normal palpation Neck comments: no nodules felt. Respiratory: no accessory muscle use, equal air expansion, clear to auscultation, no rales, no rhonchi, no evidence of consolidation Cardiovascular: NL S1/S2, no murmurs, no S3/S4 or gallop rhythm, no carotid bruits, no edema, no calf tenderness Cardiovascular Comments: regular Gastrointestinal (Abdomen): abdomen soft w/o masses, non-distended/non-tender Musculoskeletal Exam: Gait and station: normal Digits and nails: normal Lymphatic: Neck: no enlarged lymph nodes, no tenderness Neurologic: no focal deficits Psychiatric: Judgment, insight intact, orientated to time/place/person, no depression, no anxiety Preventive Care/Screening EKG: complete (12/27/2015) Colonoscopy: complete (11/11/2012) BMI: 27.51 (05/20/2018) Blood Pressure: 102/56 (05/20/2018) Tobacco use: never smoker (05/20/2018) Alcohol use: yes (05/20/2018) Drug use: never (05/20/2018) CHOLESTEROL: 169 (09/17/2016) HDL: 41 (09/17/2016) LDL: 104(09/17/2016) TRIGLYCERIDE: 122 (09/17/2016) PSA: 4.7 (04/30/2017) PNEUMOCOCCAL: refused (07/18/2012) Prevnar 13: Done (05/20/2018) FLU VAX: 05/20/2018 refused TDAP: Done (02/19/2017) Zostavax: refused (02/19/2017) Assessment Problems: Assessed OTITIS MEDIA as improved - Joe Delaney MD - Signed Assessed PALPITATIONS as improved - Joe Delaney MD - Signed Assessed GOITER, MULTINODULAR as improved - Joe Delaney MD - Signed Assessed KEY'S ESOPHAGUS as improved - Joe Delaney MD - Signed Assessed ATRIAL FIBRILLATION, PAROXYSMAL as improved - Joe Delaney MD - Signed Assessed ESSENTIAL HYPERTENSION as improved - Joe Delaney MD - Signed Assessed PSA, INCREASED as improved - Joe Delaney MD - Signed Comments: Prevnar discussed, previously refused but agreed today. Plan Medications (added/changed): DEXILANT 60 MG ORAL CAPSULE DELAYED RELEASE (DEXLANSOPRAZOLE) one po qd Comments: order Prevnar 13 Same meds. Weight Management: Patients BMI skewed by muscle mass and does not require counseling at this time New Orders: SNOMED-CT: [id number] Patient Encounter for Meaningful Use [[id number]] Lipid Panel with reflex DLDL if indicated 150504 [33884] CBC,manual diff if indicated 428840 [[id number]] Comprehensive Metabolic Profile 118974 [[id number]] Disposition: return to clinic in 6 mo, lab Flu Vax: refused Prevnar 13: Done Prevnar 13 by: Emili Curtis LPN Prevnar 13 provided by: [facility] Prevnar 13 Mfr: Guillermo Prevnar 13 Trade Name: Prevnar 13 Prevnar 13 Rte: intramuscular Prevnar 13 Lot: [id number] Prevnar 13 [facility] number: [id number] Prevnar 13 Exp: 11/22 Prevnar 13 Site: left arm Prevnar 13: VaccineInformation Sheet given (10/01/2012) Injection given per provider order. Patient tolerated injection well, voiced no complaints. Injection site clear, soft, and benign. Bandaid applied to injection site. Patient discharged in stable condition. Emili Curtis RACHEL May 20, 2018 12:13 PM Injections Medication List Reviewed next appt 11/17/2018 with dcg at 10:00am appt card handed to patient. labs scheduled 11/09/2018 lab slips given to patient end of visit summary handed to patient. Cecy Whitten MA May 20, 2018 12:16 PM Please note, this documentation has been converted into the [employer] EHR from our [employer] EMR forinformational purposes only. This documentation must not be released or used for legal purposes as the note is missing the responsible provider???s signature. A copy of the legal medical record can be obtained or printed only from the [employer] EMR. documented in this encounter Plan of Treatment Upcoming Encounters Date Type Specialty Care Team Description 01/25/2025 Office Visit Internal Medicine Joe Delaney MD [address] [place] [id number] 02/03/2025 Office Visit [place] [address] [place] [address] documented as of this encounter Visit Diagnoses Not on filedocumented in this encounter Additional Health Concerns Infection Onset Date Last Indicated Resolved Time COVID-19 Rule Out Comment:04/29/2020 Negative (PAT) 02/20/2020 COVID19 NEGATIVE (PAT) 02/23/2020 02/23/2020 02/23/2020 10:42 AM EDT documented as of this encounter Care Teams Manager Card Relationship Specialty Start Date End Date Joe Delaney MD [address] [place] [address] PCP - General Internal Medicine 11/17/18 Twan Davis MD [address] [place] [address] Referring Physician Internal Medicine 11/17/18 Wan Rodríguez [facility] [place] [address] 06/02/19 Rozina Petersen MD Gastroenterology 03/30/20 documented as of this encounter
--- OUTSIDE RECORDS SUMMARY | 2024-12-18 10:51 | XMS_ITS | Encounter Summary ---
Author Organization [facility] Address [address] [place] [address] Phone Care Team Providers Care Manager Of Operations Name Role Phone Joe Delaney MD Primary Care Provider [phone] Twan Davis MD Unavailable [phone] Wan Rodríguez Unavailable [phone] Rozina Petersen MD Unavailable Encounter Details Date Type Department Care Team Description 09/11/2024 Email from [facility] Internal Medicine [address] [place] [phone] Joe Delaney MD [address] [place] [address] Social History Tobacco Use Types Packs/Day [...] Office Visit Internal Medicine Joe Delaney MD [address] [place] [address] 02/03/2025 Office Visit Pain Medicine Patricia Sotelo PA [address] [place], [place] [phone] documented as of this encounter Visit Diagnoses Not on filedocumented in this encounter Care Teams Manager Of Operations Relationship Specialty Start Date End Date Joe Delaney MD [address] [place] [address] PCP - General Internal Medicine 11/17/18 [place] [address] [place] [address] Referring Physician Internal Medicine 11/17/18 [facility] [place] [phone] 06/02/19 Rozina Petersen MD Gastroenterology 03/30/20 documented as of this encounter
--- OUTSIDE RECORDS SUMMARY | 2024-12-18 10:51 | XMS_ITS | Encounter Summary ---
Author Organization [facility] Address [address] [place] [address] Phone Care Team Providers Care Sketch Artist Name Role Phone Joe Delaney MD Primary Care Provider [phone] Twan Davis MD Unavailable [phone] Wan Rodríguez Unavailable [phone] Rozina Petersen MD Unavailable Encounter Details Date Type Department Care Team Description 09/18/2021 Email from [facility] Internal Medicine [address] [place] [phone] Joe Delaney MD [address] [place] [address] Social History Tobacco Use Types Packs/Day [...] have Coronavirus / COVID-19? No / Unsure 09/21/2021 7:45 AM EST documented as of this encounter Plan of Treatment Upcoming Encounters Date Type Specialty Care Team Description 01/25/2025 Office Visit Internal Medicine Joe Delaney MD [address] [place] [address] 02/03/2025 Office Visit Pain Medicine Patricia Sotelo PA [address] [place] [address] documented as of this encounter Visit Diagnoses Not on filedocumented in this encounter Care Teams Sketch Artist Relationship Specialty Start Date End Date Joe Delaney MD [address] [place] [address] PCP - General Internal Medicine 11/17/18 [place] [address] [place] [address] Referring Physician Internal Medicine 11/17/18 Wan Rodríguez [facility] [place] [address] 06/02/19 Rozina Petersen MD Gastroenterology 03/30/20 documented as of this encounter
--- OUTSIDE RECORDS SUMMARY | 2024-12-18 10:51 | XMS_ITS | Encounter Summary ---
Author Organization [facility] Address [address] [place] [address] Phone Care Team Providers Care Warehouse Unloader Name Role Phone Joe Delaney MD Primary Care Provider Twan Davis MD Unavailable [phone] Wan Rodríguez Unavailable [phone] Rozina Petersen MD Unavailable Encounter Details Date Type Department Care Team Description 08/09/2024 Email from [facility] Internal Medicine [address] [place] [phone] Joe Delaney MD [address] [place] [address] Social History Tobacco Use Types Packs/Day [...] suspected to have Coronavirus/COVID-19? No / Unsure 08/10/2024 2:09 PM EST documented as of this encounter Plan of Treatment Upcoming Encounters Date Type Specialty Care Team Description 01/25/2025 Office Visit Internal Medicine Joe Delaney MD [address] [place] [address] 02/03/2025 Office Visit Pain Medicine Patricia Sotelo PA [address] [place], [place] [phone] documented as of this encounter Visit Diagnoses Not on filedocumented in this encounter Care Teams Warehouse Unloader Relationship Specialty Start Date End Date Joe Delaney MD [address] [place] [address] PCP - General Internal Medicine 11/17/18 [place] [address] [place] [address] Referring Physician Internal Medicine 11/17/18 Wan Rodríguez [facility] [place] [id number] 06/02/19 Rozina Petersen MD Gastroenterology 03/30/20 documented as of this encounter
--- OUTSIDE RECORDS SUMMARY | 2024-12-18 10:51 | XMS_ITS | Encounter Summary ---
Author Organization [facility] Address [address] [place] [address] Phone Care Team Providers Care Research Spec Name Role Phone Joe Delaney MD Primary Care Provider [phone] Twan Davis MD Unavailable [phone] Wan Rodríguez Unavailable [phone] Rozina Petersen MD Unavailable Encounter Details Date Type Department Care Team Description 03/11/2022 Email from [facility] Internal Medicine [address] [place] [phone] Joe Delaney MD [address] [place] [address] [phone] Social History Tobacco Use Types Packs/Day Years [...] Visit Internal Medicine Joe Delaney MD [address] [place], [place] [phone] 02/03/2025 Office Visit Pain Medicine Patricia Sotelo PA [address] [place], [place] [phone] documented as of this encounter Visit Diagnoses Not on filedocumented in this encounter Care Teams Research Spec Relationship Specialty Start Date End Date Joe Delaney MD [address] [place], [place] [phone] PCP - General Internal Medicine 11/17/18 Twan Davis MD [address] [place] [address] Referring Physician Internal Medicine 11/17/18 Wan Rodríguez [facility] [place] [address] 06/02/19 Rozina Petersen MD Gastroenterology 03/30/20 documented as of this encounter
--- OUTSIDE RECORDS SUMMARY | 2024-12-18 10:51 | XMS_ITS | Encounter Summary ---
Author Organization [facility] Address [address] [place] [address] Phone Care Team Providers Care Micro Lab Analyst Name Role Phone Joe Delaney MD Primary Care Provider Twan Davis MD Unavailable [phone] Wan Rodríguez Unavailable [phone] Rozina Petersen MD Unavailable Encounter Details Date Type Department Care Team Description 11/03/2018 [facility] [address] [place] [address] Eleanor Mcfarland PA [address] [place], [place] [phone] Social History Tobacco Use Types Packs/Day Years Used Date Smoking Tobacco: Never Assessed Sex Assigned at Date Recorded Male 03/28/2020 2:09 AM E DT Job Start Date Occupation Industry Not on file Not on file Not on file documented as of this encounter Plan of Treatment Upcoming Encounters Date Type Specialty Care Team Description 01/25/2025 Office Visit Internal Medicine Joe Delaney MD [address] [place] [address] 02/03/2025 Office Visit Pain Medicine Patricia Sotelo PA [address] [place] [address] documented as of this encounter Procedures Procedure Name Priority Date/Time Associated Diagnosis Comments X-RAY, SHOULDER RIGHT Routine 10/15/2018 3:27 PM EDT documented in this encounter Results * X-Ray, Shoulder right (10/15/2018 3:27 PM EDT) Anatomical Region Laterality Modality Radiographic Kathie ging 10/15/2018 8:35 AM EDT Narrative 10/15/2018 3:27 PM EDT Exam: DX SHOULDER COMP RT MIN 2V Clinical History: SHOULDER PAIN, RIGHT Comparison: Prior studies are presently not available for comparison. Findings: 3 views the right shoulder are submitted. There is mild degenerative change of the AC joint, glenohumeral joint and greater tuberosity humerus. No fracture or dislocation is demonstrated. 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 Patient Name: DILIP SOLANO Exam Date: 10/15/2018 15:22:00 Requested By: FRANCOIS CRUZ, ??CHANDRA Transcribed By: LUCIO PURCELL, ?? Signed By: LUCIO PURCELL, ?? on 10/15/2018 15:27:00 Procedure Note Lucio Purcell MD - 11/03/2018 Exam: DX SHOULDER COMP RT MIN 2V Clinical History: SHOULDER PAIN, RIGHT Comparison: Prior studies are presently not available for comparison. Findings: 3 views the right shoulder are submitted. There is mild degenerative change of the AC joint, glenohumeral joint and greater tuberosity humerus. No fracture or dislocation is demonstrated. 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 Patient Name: DILIP SOLANO Exam Date: 10/15/2018 15:22:00 Requested By: FRANCOIS CRUZ PA Transcribed By: LUCIO PURCELL MD Signed By: LUCIO PURCELL MD on 10/15/2018 15:27:00 Eleanor ARTIS [facility] IMG DIAGNOSTIC ORDERABLES documented in this encounter Visit Diagnoses Not on filedocumented in this encounter Additional Health Concerns Infection Onset Date Last Indicated Resolved Time COVID-19 Rule Out Comment:04/29/2020 Negative (PAT) 02/20/2020 COVID19 NEGATIVE (PAT) 02/23/2020 02/23/2020 02/23/2020 10:42 AM EDT documented as of this encounter Care Teams Micro Lab Analyst Relationship Specialty Start Date End Date Joe Delaney MD [address] [place], [place] [phone] PCP - General Internal Medicine 11/17/18 Twan Davis MD [address] [place] [address] Referring Physician Internal Medicine 11/17/18 Wan Rodríguez [facility] [place] [address] 06/02/19 Rozina Petersen MD Gastroenterology 03/30/20 documented as of this encounter
--- OUTSIDE RECORDS SUMMARY | 2024-12-18 10:51 | XMS_ITS | Encounter Summary ---
Author Organization [facility] Address [address] [place] [address] Phone Care Team Providers Care Cloth Feeder Name Role Phone Joe Delaney MD Primary Care Provider [phone] Twan Davis MD Unavailable [phone] Wan Rodríguez Unavailable [phone] Rozina Petersen MD Unavailable Encounter Details Date Type Department Care Team Description 12/20/2022 Email from [facility] Internal Medicine [address] [place] [phone] Joe Delaney MD [address] [place] [address] Social History Tobacco Use Types Packs/Day [...] was confirmed or suspected to have Coronavirus/COVID-19? Unable to assess 12/18/2022 2:49 PM EDT documented as of this encounter Plan of Treatment Upcoming Encounters Date Type Specialty Care Team Description 01/25/2025 Office Visit Internal Medicine Joe Delaney MD [address] [place] [address] 02/03/2025 Office Visit Pain Medicine Patricia Sotelo PA [address] [place], [place] [phone] documented as of this encounter Visit Diagnoses Not on filedocumented in this encounter Care Teams Cloth Feeder Relationship Specialty Start Date End Date Joe Delaney MD [address] [place] [address] PCP - General Internal Medicine 11/17/18 [place] [address] [place] [address] Referring Physician Internal Medicine 11/17/18 Wan Rodríguez [facility] [place] [phone] 06/02/19 Rozina Petersen MD Gastroenterology 03/30/20 documented as of this encounter
--- OUTSIDE RECORDS SUMMARY | 2024-12-18 10:51 | XMS_ITS | Encounter Summary ---
Author Organization [facility] Address [address] [place] [address] Phone Care Team Providers Care Commodity Director Name Role Phone Joe Delaney MD Primary Care Provider Twan Davis MD Unavailable [phone] Wan Rodríguez Unavailable Rozina Petersen MD Unavailable Encounter Details Date Type Department Care Team Description 11/02/2018 [facility] Endocrinology [address] [place] [address] Russ Allred MD [address] [place], [place] [phone] Social History Tobacco Use Types Packs/Day Years Used Date Smoking Tobacco: Never Assessed Sex Assigned at Date Recorded Male 03/28/2020 2:09 AM E DT Job Start Date Occupation Industry Not on file Not on file Not on file documented as of this encounter Plan of Treatment Upcoming Encounters Date Type Specialty Care Team Description 01/25/2025 Office Visit Internal Medicine Joe Delaney MD [address] [place] [address] 02/03/2025 Office Visit Pain Medicine Patricia Sotelo PA [address] [place] [address] documented as of this encounter Procedures Procedure Name Priority Date/Time Associated Diagnosis Comments US THYROID Routine 2018 5:23 PM EST documented in this encounter Results * US THYROID (2018 5:23 PM EST) Anatomical Region Laterality Modality Ultrasound 2018 5:00 PM EST Narrative 2018 5:23 PM EST Examination: US THYROID Clinical History: Thyroid nodules Comparison: 05/07/2017 Findings: Thyroid sonography was performed. Right lobe measures 5 x 2.4 x 2.3 cm with multiple nodules including a 0.7 cm, 2.1 x 1.6 x 1.8 cm and 3.5 x 3.3 x 2.4 cm nodule. Larger nodule may be slightly increased in size For differences in technique. IMPRESSION: Slightly increased size of the largest nodule on the right lobe Echogenic area within the left side of thyroid region measures 7 mm and is unchanged. Patient Name: DILIP SOLANO Exam Date: 2018 17:11:00 Requested By: RUSS ALLRED, ?? Transcribed By: LUCIO EDUARDO, ?? Signed By: LUCIO EDUARDO ?? on 2018 17:23:00 Procedure Note Lucio Eduardo MD - 11/02/2018 Examination: US THYROID Clinical History: Thyroid nodules Comparison: 05/07/2017 Findings: Thyroid sonography was performed. Right lobe measures 5 x 2.4 x 2.3 cm with multiple nodules including a 0.7 cm, 2.1 x 1.6 x 1.8 cm and 3.5 x 3.3 x 2.4 cm nodule. Larger nodule may be slightly increased in size For differences in technique. IMPRESSION: Slightly increased size of the largest nodule on the right lobe Echogenic area within the left side of thyroid region measures 7 mm and is unchanged. Patient Name: DILIP SOLANO Exam Date: 2018 17:11:00 Requested By: RUSS ALLRED MD Transcribed By: LUCIO EDUARDO MD Signed By: LUCIO EDUARDO MD on 2018 17:23:00 Russ Allred MD [facility] IMG US ORDERABL ES documented in this encounter Visit Diagnoses Not on filedocumented in this encounter Additional Health Concerns Infection Onset Date Last Indicated Resolved Time COVID-19 Rule Out Comment:04/29/2020 Negative (PAT) 02/20/2020 COVID19 NEGATIVE (PAT) 02/23/2020 02/23/2020 02/23/2020 10:42 AM EDT documented as of this encounter Care Teams Commodity Director Relationship Specialty Start Date End Date Joe Delaney MD [address] [place] [address] PCP - General Internal Medicine 11/17/18 [place] [address] [place] [address] Referring Physician Internal Medicine 11/17/18 Wan Rodríguez [facility] [place] [address] 06/02/19 Rozina Petersen MD Gastroenterology 03/30/20 documented as of this encounter
--- OUTSIDE RECORDS SUMMARY | 2024-12-18 10:51 | XMS_ITS | Encounter Summary ---
Author Organization [facility] Address [address] [place] [address] Phone Care Team Providers Care Plastering Supervisor Name Role Phone Joe Delaney MD Primary Care Provider Twan Davis MD Unavailable [phone] Wan Rodríguez Unavailable Rozina Petersen MD Unavailable Encounter Details Date Type Department Care Team Description 01/02/2018 [facility] Information Management - Release of Information [address] [place] [phone] Load Provider, Historical Social History Tobacco [...] Visit Internal Medicine Joe Delaney MD [address] [place], [place] [phone] 02/03/2025 Office Visit Pain Medicine Patricia Sotelo PA [address] [place], [place] [phone] documented as of this encounter Procedures Procedure Name Priority Date/Time Associated Diagnosis Comments PSA, TOTAL AND FREE Routine 01/02/2018 4 :22 PM EDT documented in this encounter Results * (ABNORMAL) PSA, total and free (01/02/2018 4:22 PM EDT) PSA 6.4(H) 0.0 - 4.0 ng/mL [facility] Comment: Moving[employer] methodology. According to the [employer], Serum PSA should decrease and remain at undetectable levels after radical prostatectomy. The AUA defines biochemical recurrence as an initial PSA value 0.2 ng/mL or greater followed by a subsequent confirmatory PSA value 0.2 ng/mL or greater. Values obtained with different assay methods or kits cannot be used interchangeably. Results cannot be interpreted as absolute evidence of the presence or absence of malignant disease. PSA, Free 0.97 N/A ng/mL [facility] Comment:[employer]Spot ECLIA methodol ogy. PSA, Free Pct 15.2 % [facility] Comment: The table below lists the probability of prostate cancer for men with non-suspicious STEFANIA results and total PSA between 4 and 10 ng/mL, by patient age (Scar et al, PILAR 1998, 279:1542). ?% Free PSA ? 50-64 yr ?65-75 yr ?0.00-10.00% ?56% ? 55% ? 10.01-15.00% ?24% ? 35% ? 15.01-20.00% ?17% ? 23% ? 20.01-25.00% ?10% ? 20% ?>25.00% ? 5% ?9% Please note: ??Scar et al did not make specific ?recommendations regarding the use of ?percent free PSA for any other population ?of men. 01/02/2018 4:22 PM EDT 01/02/2018 4:24 PM EDT Narrative [facility] - 01/03/2018 8:40 AM EDT Testing performed at: [RN] [facility], [address] [place] [address], [place], [address], , Computer Programmer Analyst: Lynn Dukes MD Historical Load Provider LAB BLOOD ORDER SCARLETT Performing Organization Address City/State/[facility] Co de Phone Number [facility] documented in this encounter Visit Diagnoses Not on filedocumented in this encounter Additional Health Concerns Infection Onset Date Last Indicated Resolved Time COVID-19 Rule Out Comment:04/29/2020 Negative (PAT) 02/20/2020 COVID19 NEGATIVE (PAT) 02/23/2020 02/23/2020 02/23/2020 10:42 AM EDT documented as of this encounter Care Teams Plastering Supervisor Relationship Specialty Start Date End Date Joe Delaney MD [address] [place] [address] PCP - General Internal Medicine 11/17/18 Twan Davis MD [address] [place] [address] Referring Physician Internal Medicine 11/17/18 Wan Rodríguez [facility] Vlad Katz [facility] [place] [address] 06/02/19 Rozina Petersen MD Gastroenterology 8/26/20 documented as of this encounter
--- OUTSIDE RECORDS SUMMARY | 2024-12-18 10:51 | XMS_ITS | Encounter Summary ---
Author Organization [facility] Address [address] [place] [address] Phone Care Team Providers Care Jordan Worker Name Role Phone Joe Delaney MD Primary Care Provider [phone] Twan Davis MD Unavailable [phone] Wan Rodríguez Unavailable Rozina Petersen MD Unavailable Reason for Referral * MRI/CAT/PET Scan (Routine) - Closed Specialty Diagnoses / Procedures Referred By Contac t Referred To Contact Radiology Diagnoses Chronic right-sided low back pain without sciatica Procedures MRI, Lumbar spine w contrast Jamison Castano MD [address] [place] [address] Referral ID Status Reason Start Date Expiration Date V isits Requested Visits Authorized [id number] Closed Specialty Services Required 08/20/2024 11/17/2024 1 1 Encounter Details Date Type Department Care Team Description 08/09/2024 Email from [facility] Physical Medicine and Rehabilitation [address] [place] [phone] Jamison Castano MD [facility] [place] [address] Chronic right-sided low back pain without sciatica (Primary Dx) Social History Tobacco Use Types Packs/Day Years [...] Description 01/25/2025 Office Visit Internal Medicine Jeo Delaney MD [address] [place], [place] [phone] 02/03/2025 Office [place] [address] [place] [phone] Scheduled Orders Name Type Priority Associated Diagnoses Orde r Schedule MRI, Lumbar spine w contrast Imaging Routine Chronic right-sided low back pain without sciatica Expected: 08/14/2024, Expires: 11/12/2024 documented as of this encounter Visit Diagnoses Diagnosis Chronic right-sided low back pain without sciatica- Primary documented in this encounter Care Teams Jordan Worker Relationship Specialty Start Date End Date Joe Delaney MD [address] [place], [place] [phone] PCP - General Internal Medicine 11/17/18 [place] [address] [place] [address] Referring Physician Internal Medicine 11/17/18 Wan Rodríguez [facility] [place] [address] 06/02/19 Rozina Petersen MD Gastroenterology 03/30/20 documented as of this encounter
--- OUTSIDE RECORDS SUMMARY | 2024-12-18 10:51 | XMS_ITS | Encounter Summary ---
Author Organization [facility] Address [address] [place] [address] Phone Care Team Providers Care Automated Cutting Machine Operator Name Role Phone Joe Delaney MD Primary Care Provider Twan Davis MD Unavailable [phone] Wan Rodríguez Unavailable [phone] Rozina Petersen MD Unavailable Encounter Details Date Type Department Care Team Description 01/25/2023 Email from [facility] Internal Medicine [address] [place] [phone] Joe Delaney MD [address] [place] [address] Social History Tobacco Use Types Packs/Day [...] Visit Internal Medicine Joe Delaney MD [address] [place] [address] 02/03/2025 Office Visit Pain Medicine Patricia Sotelo PA [address] [place], [place] [phone] documented as of this encounter Visit Diagnoses Not on filedocumented in this encounter Care Teams Automated Cutting Machine Operator Relationship Specialty Start Date End Date Joe Delaney MD [address] [place] [address] PCP - General Internal Medicine 11/17/18 [place] [address] [place] [address] Referring Physician Internal Medicine 11/17/18 Wan Rodríguez [facility] [place] [address] 06/02/19 Rozina Petersen MD Gastroenterology 03/30/20 documented as of this encounter
--- OUTSIDE RECORDS SUMMARY | 2024-12-18 10:51 | XMS_ITS | Encounter Summary ---
Author Organization [facility] Address [address] [place] [address] Phone Care Team Providers Care Shirt Sorter Name Role Phone Joe Delaney MD Primary Care Provider [phone] Twan Davis MD Unavailable [phone] Wan Rodríguez Unavailable [phone] Rozina Petersen MD Unavailable Encounter Details Date Type Department Care Team Description 05/05/2019 Orders Only Internal Medicine [address] [place] [phone] [place] [address] [place] [address] [phone] GERD without esophagitis; Essential hypertension; History of atrial fibrillation Social History Tobacco Use Types Packs/Day Years Used Date Smoking Tobacco: Never Smokeless Tobacco: Never Alcohol Use Standard Drinks/Week Comments Yes 0 (1 standard drink = 0.6 oz pur e alcohol) social Sex Assigned at Date Recorded Male 03/28/2020 2:09 AM E DT Job Start Date Occupation Industry Not on file Not on file Not on file documented as of this encounter Plan of Treatment Upcoming Encounters Date Type Specialty Care Team Description 01/25/2025 Office Visit Internal Medicine Joe Delaney MD [facility] [place], [place] [phone] 02/03/2025 Office Visit Pain Medicine Patricia Sotelo PA [address] [place] [address] documented as of this encounter Procedures Procedure Name Priority Date/Time Associated Diagnosis Comments CBC Routine 05/05/2019 8:35 AM EDT GERD without esophagitis MAGNESIUM Routine 05/05/2019 8:35 AM EDT History of atrial fibrillation LIPID PANEL Routine 05/05/2019 8:35 AM EDT History of atrial fibrillation Essential hypertension COMPREHENSIVE METABOLIC PANEL Routine 05/05/2019 8:35 AM EDT Essential hypertension documented in this encounter Results * Magnesium (05/05/2019 8:35 AM EDT) Magnesium 2.20 1.90 - 2.70 mg/dL [facility] Blood 05/05/2019 8:35 AM EDT 05/05/2019 8:39 AM EDT Joe Delaney MD LAB BLOOD ORDERABLES [facility] [address] [place] [address]. [place], [place] [phone] * Lipid panel (05/05/2019 8:35 AM EDT) Cholesterol 159 136 - 200 mg/dL [facility] Comment: Cholesterol Risk Levels Recommended under 200mg/dl Borderline 200-239mg/dl High Risk ? above ??240mg/dl Triglycerides 78 48 - 200 mg/dL [facility] HDL 40 35 - 92 mg/dL [facility] LDL Cholesterol 104 0 - 140 mg/dL [facility] Total Uxb-WXS-Qtee (LDL+VLDL) 119.4 30.0 - 130.0 mg/dl [facility] Chol/HDL Ratio 4.0 3.4 - 24.0 [facility] Blood 05/05/2019 8:35 AM EDT 05/05/2019 8:39 AM EDT Joe Delaney MD LAB BLOOD ORDERABLES [facility] [address] [place], [place] [phone] * (ABNORMAL) Comprehensive metabolic panel (05/05/2019 8:35 AM EDT) [facility] GLUCOSE 83 70 - 105 mg/dL [facility] Urea nitrogen 8 7 - 25 mg/dL [facility] Creatinine 0.9 0.6 - 1.3 mg/dL [facility] Calcium 10.0 8.6 - 10.3 mg/dL [facility] Total Protein 6.7 6.4 - 8.9 g/dL [facility] Albumin 4.5 3.5 - 5.7 g/dL [facility] Bilirubin, Total 0.72 0.30 - 1.00 mg/dL [facility] Alk Phos, Total 73 34 - 104 U/L [facility] AST 21 15 - 39 U/L [facility] Sodium 137 136 - 145 mmol/L [facility] Potassium 4.6 3.5 - 5.1 mmol/L [facility] Chloride 104 98 - 107 mmol/L [facility] CO2 30.5 21.0 - 31.0 mmol/L [facility] ALT 18 7 - 52 U/L [facility] Anion Gap 7 5 - 19 [facility] BUN/Creatinine Ratio 8.7 6.0 - 20.0 [facility] GFR > 60 >60 ml/min/1.7 3mGF [facility] Comment:If patient is Radha n Kitt[place] multiply result by 1.212 Alb/Glob ratio 2.0(H) 1.2 - 1.8 [facility] Globulin 2.2 1.6 - 3.9 g/dL [facility] Blood 05/05/2019 8:35 AM EDT 05/05/2019 8:39 AM EDT Joe Delaney MD LAB BLOOD ORDERABLES [address] [place], [place] [phone] * CBC (05/05/2019 8:35 AM EDT) WBC 6.1 4.8 - 10.8 10*3/mm3 [facility] RBC 5.3 4.7 - 6.1 10*6/mm3 [facility] Hemoglobin 15.7 14.0 - 18.0 g/dL [facility] Hematocrit 44.9 42.0 - 52.0 % [facility] MCV 85.40 80.00 - 94.00 fL [facility] MCH 29.8 26.0 - 34.0 pg [facility] MCHC 35.0 32.0 - 36.0 G/DL [facility] RDW 13.3 9.1 - 17.5 % [facility] Platelets 237 130 - 400 10*3/mm3 [facility] MPV 10.3 6.4 - 13.3 fL [facility] Neutrophils Absolute 3.76 1.60 - 6.70 10*3/mm3 [facility] Neutrophils % 61.40 43.10 - 76.10 % [facility] Lymphocytes Absolute 1.73 0.80 - 3.00 10*3/mm3 [facility] Lymphocytes Relative 28.20 12.90 - 43.90 % [facility] Monocytes Absolute 0.56 0.40 - 0.80 10*3/mm3 [facility] Monocytes Relative 9.10 4.90 - 12.50 % [facility] Eosinophils Man 0.07 0.00 - 0.50 10*3/mm3 [facility] Eosinophils Relative 1.10 0.00 - 5.00 % [facility] Basophils Absolute 0.01 0.00 - 1.00 10*3/mm3 [facility] Basophils Relative 0.20 0.00 - 2.00 % [facility] Comment:Please note automate d differential reference ranges updated 01/17/18. Blood 05/05/2019 8:35 AM EDT 05/05/2019 8:39 AM EDT Joe Delaney MD LAB BLOOD ORDERABLES [facility] [address] [facility] [place], [place] [phone] documented in this encounter Visit Diagnoses Diagnosis GERD without esophagitis Esophageal reflux Essential hypertension Unspecified essential hypertension History of atrial fibrillation Personal history of other diseases of circulatory system documented in this encounter Additional Health Concerns Infection Onset Date Last Indicated Resolved Time COVID-19 Rule Out Comment:04/29/2020 Negative (PAT) 02/20/2020 COVID19 NEGATIVE (PAT) 02/23/2020 02/23/2020 02/23/2020 10:42 AM EDT documented as of this encounter Care Teams Shirt Sorter Relationship Specialty Start Date End Date Joe Delaney MD [address] [place] [address] PCP - General Internal Medicine 11/17/18 Twan Davis MD [address] [place] [address] Referring Physician Internal Medicine 11/17/[address] [facility] [place] [address] 06/02/19 Rozina Petersen MD Gastroenterology 03/30/20 documented as of this encounter
--- OUTSIDE RECORDS SUMMARY | 2024-12-18 10:51 | XMS_ITS | Encounter Summary ---
Author Organization [facility] Address [address] [place] [address] Phone Care Team Providers Care Chaperone Name Role Phone Joe Delaney MD Primary Care Provider [phone] Twan Davis MD Unavailable [phone] Wan Rodríguez Unavailable [phone] Rozina Petersen MD Unavailable Encounter Details Date Type Department Care Team Description 09/20/2019 Email from [facility] Internal Medicine [address] [place] [phone] [place] [address] [place] [address] [phone] Social History Tobacco Use Types Packs/Day Years [...] Visit Internal Medicine Joe Delaney MD [address] [place], [place] [phone] 02/03/2025 Office Visit Pain Medicine Patricia Sotelo PA [address] [place], [place] [phone] documented as of this encounter Visit Diagnoses Not on filedocumented in this encounter Additional Health Concerns Infection Onset Date Last Indicated Resolved Time COVID-19 Rule Out Comment:04/29/2020 Negative (PAT) 02/20/2020 COVID19 NEGATIVE (PAT) 02/23/2020 02/23/2020 02/23/2020 10:42 AM EDT documented as of this encounter Care Teams Chaperone Relationship Specialty Start Date End Date Joe Delaney MD [address] [place] [address] PCP - General Internal Medicine 11/17/18 Twan Davis MD [address] [place] [address] Referring Physician Internal Medicine 11/17/18 Wan Rodríguez [facility] Vlad Katz [place] [address] 06/02/19 Rozina Petersen MD Gastroenterology 03/30/20 documented as of this encounter
--- OUTSIDE RECORDS SUMMARY | 2024-12-18 10:51 | XMS_ITS | Encounter Summary ---
Author Organization [facility] Address [address] [place] [address] Phone Care Team Providers Care Perch Mender Name Role Phone Joe Delaney MD Primary Care Provider [phone] Twan Davis MD Unavailable [phone] Wan Rodríguez Unavailable [phone] Rozina Petersen MD Unavailable Encounter Details Date Type Department Care Team Description 09/22/2019 Email from [facility] [address] [place] [phone] Kyler Gr MD [address] [place], [place] [phone] Social History Tobacco Use Types Packs/Day Years [...] Visit Internal Medicine Joe Delaney MD [address] [place], [place] [phone] 02/03/2025 Office Visit Pain Medicine Patricia Sotelo PA [address] [place], [place] [phone] documented as of this encounter Visit Diagnoses Not on filedocumented in this encounter Additional Health Concerns Infection Onset Date Last Indicated Resolved Time COVID-19 Rule Out Comment:04/29/2020 Negative (PAT) 02/20/2020 COVID19 NEGATIVE (PAT) 02/23/2020 02/23/2020 02/23/2020 10:42 AM EDT documented as of this encounter Care Teams Perch Mender Relationship Specialty Start Date End Date Joe Delaney MD [address] [place] [address] PCP - General Internal Medicine 11/17/18 [place] [address] [place] [address] Referring Physician Internal Medicine 11/17/18 Wan Rodríguez [facility] Vlad Katz [place] [address] 06/02/19 Rozina Petersen MD Gastroenterology 03/30/20 documented as of this encounter
--- OUTSIDE RECORDS SUMMARY | 2024-12-18 10:51 | XMS_ITS | Encounter Summary ---
Author Organization [facility] Address [address] [place] [address] Phone Care Team Providers Care Environment Friendly Landscape Designer Name Role Phone Joe Delaney MD Primary Care Provider [phone] Twan Davis MD Unavailable [phone] Wan Rodríguez Unavailable [phone] Rozina Petersen MD Unavailable Encounter Details Date Type Department Care Team Description 05/30/2018 Conversion Orthopedics [address] [place] [phone] Eleanor Mcfarland PA [address] [place] [address] Social History Tobacco Use Types Packs/Day Years Used Date Smoking Tobacco: Never Assessed Sex Assigned at Date Recorded Male 03/28/2020 2:09 AM E DT Job Start Date Occupation Industry Not on file Not on file Not on file documented as of this encounter Procedure Notes * CHANDRA Salas - 05/30/2018 3:26 AM EDT Fred is here today for his 5th Cortisone injection in his right knee(s). He has noted mild improvement since his last injection. He states that his pain is about a 6 out of 10 today. Using aseptic technique the right knee(s) were injected with the Cortisone medication. The patient tolerated the procedure well. If he has any questions or concerns before that time he will not hesitate to contact us. Right Knee Cortisone Injection: -Discussed risks/benefits and obtained verbal consent. - After sterile prepping of the right knee with alcohol, using a 21 gauge needle, 2 cc of Marcaine,2cc of Lidocaine, and 1 cc of Kenolog was injected into the right knee joint from the anterolateralapproach. -Band aide placed. -Patient tolerated the procedure well and it was performed without difficulty. Injections PLAN: follow up in 3 months or PRN. Billing Diagnosis (choose up to 4) PRIMARY LOCALIZED OSTEOARTHRITIS OF RIGHT KNEE (ICD-715.16) (KOK08-Z25.11), KNEE PAIN, RIGHT (ICD-719.46) (JEG38-I65.561) Please note, this documentation has been converted into the [employer] EHR from our [employer] EMR forinformational purposes only. This documentation must not be released or used for legal purposes as the note is missing the responsible provider???s signature. A copy of the legal medical record can be obtained or printed only from the [employer] EMR. documented in this encounter Plan of Treatment Upcoming Encounters Date Type Specialty Care Team Description 01/25/2025 Office Visit Internal Medicine Joe Delaney MD [address] [place] [address] [phone] 02/03/2025 Office Visit Pain Medicine Patricia Sotelo PA [address] [place] [address] documented as of this encounter Visit Diagnoses Not on filedocumented in this encounter Additional Health Concerns Infection Onset Date Last Indicated Resolved Time COVID-19 Rule Out Comment:04/29/2020 Negative (PAT) 02/20/2020 COVID19 NEGATIVE (PAT) 02/23/2020 02/23/2020 02/23/2020 10:42 AM EDT documented as of this encounter Care Teams Environment Friendly Landscape Designer Relationship Specialty Start Date End Date Joe Delaney MD [address] [place] [address] PCP - General Internal Medicine 11/17/18 Twan Davis MD [address] [place] [address] Referring Physician Internal Medicine 11/17/18 Wan Rodríguez [facility] [place] [address] 06/02/19 Rozina Petersen MD Gastroenterology 03/30/20 documented as of this encounter
--- OUTSIDE RECORDS SUMMARY | 2024-12-18 10:51 | XMS_ITS | Encounter Summary ---
Author Organization [facility] Address [address] [place] [address] Phone Care Team Providers Care Technology Integration Specialist Name Role Phone Joe Delaney MD Primary Care Provider [phone] Twan Davis MD Unavailable [phone] Wan Rodríguez Unavailable [phone] Rozina Petersen MD Unavailable Encounter Details Date Type Department Care Team Description 06/09/2018 Conversion Endocrinology [address] [place] [phone] Jayjay Allred MD [address] [place] [address] Social History Tobacco Use Types Packs/Day Years Used Date Smoking Tobacco: Never Assessed Sex Assigned at Date Recorded Male 03/28/2020 2:09 AM E DT Job Start Date Occupation Industry Not on file Not on file Not on file documented as of this encounter Progress Notes * Jayjay Allred MD - 06/09/2018 3:12 AM EST Endocrinology Department of Endocrinology and Metabolism Jayjay Allred MD, [facility] [place], [place] Chief Complaint: 1 year with labs HPI: 67-year-old white male with Thyroid Nodules status post [...] has small thyroid nodules which are beingmonitored. He has a history of atrial fibrillation and is now on anticoagulation using Xarelto. Ultrasound-guided thyroid biopsy was performed 10/30/16 on the 2 suspicious right lobe thyroid nodules to evaluate for thyroid cancer. Cytology reported both of these nodules to be benign and negative for thyroid cancer. 04/15/17: Thyroid antibodies negative for Erasto's thyroiditis, Thyroid antibodies negative for Graves' disease, TSH 1.57 and free T4 1.04. Thyroid ultrasound 05/07/17 showed an enlarged, heterogeneous thyroid gland with thyroid nodules bilaterally. The right lobe thyroid nodules measured 21 mm and 29 mm. The left lobe thyroid nodule measured 8 mm. He complained about episodic palpitations and requested a hormonal evaluation. 05/14/17: Calcitonin 7, plasma metanephrines negative for pheochromocytoma. He requested to check his Testosterone levels and Mg levels. 06/10/18: Total testosterone 611, free testosterone 5.6, magnesium 2.0, 25 OH vitamin D 40.6, TSH 2.00 and free T4 1.12. Today he appears clinically euthyroid, vitals are stable, he does not appear to have any mass effect from his thyroid gland and he is in no acute distress. Past Medical History: Thyroid Nodules. Htn. Elev PSA. . A-fib. . Gerd. Allergic rhinitis. BPH. Past Surgical History: Tonsillectomy, childhood; . Dental implants. . Prost bx. Family History reviewed - no changes required Additional comments:Mother age 88, kidney cancer, hysterectomy, breast cancer, cancerous colonpolyp. Father is , at age 83, [place] suspected. Had high PSA but not Ca. 1 brother is alive and well. 1 sister is aliveand well. Social History: Marital Status: . . Number of Children: 3.. Place of : [place].. 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 Sleep History: 6-8 hrs;. Travel History: [place];. Tobacco use: never smoker. Passive smoke exposure: no. Alcohol use:yes. Alcohol use Frequency:social. Counseled:yes. Drug use: never. HIV high risk behavior: no. Caffeine use (drinks/day): 3. Exercise (times/week): 3. Seatbelt use (%): 100. 2 cats (for 2 years), a dog. . Review of Systems General: Denies fevers, chills, fatigue. Eyes: Denies blurring, diplopia. Ears/Nose/Throat: Denies earache, ear discharge, tinnitus, decreased hearing, nasal congestion, nosebleeds, sore throat, hoarseness, oral ulcers, dry mouth, dysphagia, postnasal drip, sneezing, phonophobia. Cardiovascular: Complains of palpitations. Denies chest pains. Respiratory: Denies cough, dyspnea. Gastrointestinal: Denies nausea, vomiting, diarrhea, constipation. Genitourinary: Denies dysuria, hematuria. Musculoskeletal: Denies back pain, joint pain. Skin/Breast: Denies rash, itching. Neurologic: Denies seizures, syncope, tremors. Psychiatric: Denies depression, anxiety. Endocrine: Denies cold intolerance, heat intolerance. Allergies: PCN (Moderate) AMLODIPINE BESYLATE (AMLODIPINE BESYLATE) (Moderate) PENICILLIN (Moderate) Intake Form: Vital Signs Entering Staff: Tamie Dean June 09, 2018 3:18 PM Entered weight: 216 lb., 6 oz. Calculated weight: 216.38 lb. (98.35kg.) Height: 74in.(187.96cm.) Expanded BP Assessment Right arm BP: 126/74 mm Hg Body Mass Index in-lb BMI (in-lb) Physical Exam General appearance: well nourished, well hydrated, no acute distress Eyes External: conjunctivae and lids normal Ears, Nose and Throat External ears: normal, no lesions or deformities Hearing: grossly intact Lips/teeth/gums: normal dentition, no gingival inflammation, no labial lesions Neck Neck: supple, no masses, trachea midline Thyroid: nodules present that are mobile, smooth and non-tender. Respiratory Respiratory effort: no intercostal retractions or [...] EKG: complete (12/27/2015) Colonoscopy: complete (11/11/2012) BMI: 27.88 (06/09/2018) Blood Pressure: 126/74 (06/09/2018) Tobacco use: never smoker (05/20/2018) Alcohol use: yes (05/20/2018) Counseled to quit/cut down alcohol use: yes (06/09/2018) Drug use: never (05/20/2018) CHOLESTEROL: 169 (09/17/2016) HDL: 41 (09/17/2016) LDL: 104 (09/17/2016) TRIGLYCERIDE: 122 (09/17/2016) PSA: 4.7 (04/30/2017) PNEUMOCOCCAL: refused (07/18/2012) Prevnar 13: Done (05/20/2018) FLU VAX: 05/20/2018 refused TDAP: Done (02/19/2017) Zostavax:refused (02/19/2017) Assessment Allergies: PCN (Moderate) AMLODIPINE BESYLATE (AMLODIPINE BESYLATE) (Moderate) PENICILLIN (Moderate) Problems (including changes): UNSPECIFIED VITAMIN D DEFICIENCY (ICD-268.9) (ASV50-D61.9) HYPOMAGNESEMIA (ICD-275.2) (RTR12-H90.42) HYPOGONADISM (ICD-257.2) (NIZ63-P90.1) ATRIAL FIBRILLATION, PAROXYSMAL (ICD-427.31) (KDG31-E42.0) PRIMARY LOCALIZED OSTEOARTHRITIS OF RIGHT KNEE (ICD-715.16) (QZU64-H36.11) ANEMIA, MICROCYTIC (ICD-281.9) (YQB99-I97.9) GOITER, MULTINODULAR (ICD-241.1) (AHP05-P78.2) HEMORRHOIDS (ICD-455.6) (YHX36-S06.9) KEY'S ESOPHAGUS (ICD-530.85) (ZHT63-O06.70) THYROID NODULES (ICD-241.0) (AXO66-R91.1) ANXIETY (ICD-300.00) (RCV07-Q37.9) LUMBAGO (ICD-724.2) (GZJ35-A35.5) HX OF BEE STING ALLERGY (ICD-V15.06) (LHN44-X79.030) ESSENTIAL HYPERTENSION (ICD-401.9) (BIX96-Q38) Sx of DEGENERATIVE JOINT DISEASE, KNEE (ICD-715.96) (EYK97-L01.9) BENIGN PROSTATIC HYPERPLASIA (ICD-600.00) (ABC09-V51.0) PSA, INCREASED (ICD-790.93) (LEZ12-C16.2) SCREENING FOR LIPOID DISORDERS (ICD-V77.91) (ZDN12-N76.220) GERD (ICD-530.81) (UMX10-Y95.9) KNEE PAIN, RIGHT (ICD-719.46) (WUE61-J92.561) HIP PAIN, LEFT (ICD-719.45) (IAB29-C77.552) Problem Assessments: Medications (including changes): LOSARTAN POTASSIUM 100 MG ORAL TABLET (LOSARTAN POTASSIUM) one po qd XARELTO 20 MG ORAL TABLET (RIVAROXABAN) one po qd PROPRANOLOL HCL TABLET (PROPRANOLOL HCL TABS) as needed when in Afib DEXILANT 60 MG ORAL CAPSULE DELAYED RELEASE (DEXLANSOPRAZOLE) one po qd Impression: 67-year-old white male with Thyroid Nodules status postbiopsy here for follow-up evaluation. Plan: Recommend repeating thyroid ultrasound to evaluate for changes in the thyroid nodules. If there is significant increase in size of the thyroid nodules on repeat thyroid ultrasound, would recommend ultrasound-guided thyroid biopsy to evaluate for thyroid cancer. Discussed the results of the last thyroid ultrasound in detail, compared this ultrasound to previous thyroid ultrasound and counseling provided along with reassurance on the findings. Check complete thyroid function tests on return to clinic. Of the total time spent during this visit, > 50% was spent discussing presenting complaints, possible etiologies, lab tests, clinical findings, treatment options and plan with patient. Old recordswere ordered and reviewed. Patient was given the opportunity and encouraged to ask questions, and all were addressed to the best of my ability during this visit. Patient was advised to call my officeat any time prior to next visit with questions/concerns and they will be promptly addressed. Orders: SNOMED-CT: [id number] Patient Encounter for Meaningful Use [[id number]] Ultrasound Head & neck-soft tissues (eg. thyroid) [50479] [[id number]] [id number] Patient - Detailed with Moderate Complexity [[id number]] T4, FREE [5015] TSH [5020] Testosterone, Total [5070] Magnesium [4145] 25 OH VITAMIN D [5001] Testosterone, Free [[id number]] cc: GOODMAN TIWARI,JOE Ortiz Injections labs and us now reminder for 1 yr Charlee Elena LPN June 09, 2018 3:52 PM pt was instructed to call after labs & us for results Please note, this documentation has been converted into the [employer] EHR from our [employer] EMR forinformational purposes only. This documentation must not be released or used for legal purposes as the note is missing the responsible provider???s signature. A copy of the legal medical record can be obtained or printed only from the [employer] EMR. documented in this encounter Plan of Treatment Upcoming Encounters Date Type Specialty Care Team Description 01/25/2025 Office Visit Internal Medicine Joe Delaney MD [address] [place] [address] 02/03/2025 Office Visit Pain Medicine Patricia Sotelo PA [address] [place] [address] documented as of this encounter Visit Diagnoses Not on filedocumented in this encounter Additional Health Concerns Infection Onset Date Last Indicated Resolved Time COVID-19 Rule Out Comment:04/29/2020 Negative (PAT) 02/20/2020 COVID19 NEGATIVE (PAT) 02/23/2020 02/23/2020 02/23/2020 10:42 AM EDT documented as of this encounter Care Teams Technology Integration Specialist Relationship Specialty Start Date End Date Joe Delaney MD [address] [place] [address] PCP - General Internal Medicine 11/17/18 Twan Davis MD [address] [place] [address] Referring Physician Internal Medicine 11/17/18 Wan Rodríguez [facility] Vlad Katz [facility] [place] [address] 06/02/19 Rozina Petersen MD Gastroenterology 03/30/20 documented as of this encounter
--- OUTSIDE RECORDS SUMMARY | 2024-12-18 10:51 | XMS_ITS | Encounter Summary ---
Author Organization [facility] Address [address] [place] [address] Phone Care Team Providers Care Child Specialist Name Role Phone Joe Delaney MD Primary Care Provider [phone] Twan Davis MD Unavailable [phone] Wan Rodríguez Unavailable [phone] Rozina Petersen MD Unavailable Encounter Details Date Type Department Care Team Description 03/29/2020 Email from [facility] Internal Medicine [address] [place] [phone] [place] [address] [place] [address] [phone] Social History Tobacco Use Types Packs/Day Years [...] Visit Internal Medicine Joe Delaney MD [address] [place], [place] [phone] 02/03/2025 Office Visit Pain Medicine Patricia Sotelo PA [address] [place], [place] [phone] documented as of this encounter Visit Diagnoses Not on filedocumented in this encounter Care Teams Child Specialist Relationship Specialty Start Date End Date Joe Delaney MD [address] [place], [place] [id number] PCP - General Internal Medicine 11/17/18 Twan Davis MD [address] [place] [address] Referring Physician Internal Medicine 11/17/18 Wan Rod[facility]guez [facility] [place] [address] 06/02/19 Rozina Petersen MD Gastroenterology 03/30/20 documented as of this encounter
--- OUTSIDE RECORDS SUMMARY | 2024-12-18 10:51 | XMS_ITS | Encounter Summary ---
Author Organization [facility] Address [address] [place] [address] Phone Care Team Providers Care Continuous Improvement Analyst Name Role Phone Joe Delaney MD Primary Care Provider [phone] Twan Davis MD Unavailable [phone] Wan Rodríguez Unavailable Rozina Petersen MD Unavailable Encounter Details Date Type Department Care Team Description 09/29/2019 Email from [facility] Internal Medicine [address] [place] [phone] [place] [address] [place] [address] [phone] Social History Tobacco Use Types Packs/Day Years [...] Visit Internal Medicine Joe Delaney MD [address] [place], [place] [phone] 02/03/2025 Office Visit Pain Medicine Patricia Sotelo PA [address] [place], [place] [phone] documented as of this encounter Visit Diagnoses Not on filedocumented in this encounter Additional Health Concerns Infection Onset Date Last Indicated Resolved Time COVID-19 Rule Out Comment:04/29/2020 Negative (PAT) 02/20/2020 COVID19 NEGATIVE (PAT) 02/23/2020 02/23/2020 02/23/2020 10:42 AM EDT documented as of this encounter Care Teams Continuous Improvement Analyst Relationship Specialty Start Date End Date Joe Delaney MD [address] [place] [address] PCP - General Internal Medicine 11/17/18 Twan Davis MD [address] [place] [address] Referring Physician Internal Medicine 11/17/18 Wan Rodríguez [facility] Vlad Katz [facility] [place] [address] 06/02/19 Rozina Petersen MD Gastroenterology 03/30/20 documented as of this encounter
--- OUTSIDE RECORDS SUMMARY | 2024-12-18 10:51 | XMS_ITS | Encounter Summary ---
Author Organization [facility] Address [address] [place] [address] Phone Care Team Providers Care Assistant Site Manager Name Role Phone Joe Delaney MD Primary Care Provider [phone] Twan Davis MD Unavailable [phone] Wan Rodríguez Unavailable [phone] Rozina Petersen MD Unavailable Encounter Details Date Type Department Care Team Description 11/12/2021 Email from [facility] Internal Medicine [address] [place] [phone] Joe Delaney MD [address] [place] [address] [phone] Social History Tobacco Use Types Packs/Day Years [...] Visit Internal Medicine Joe Delaney MD [address] [place], [place] [phone] 02/03/2025 Office Visit Pain Medicine Patricia Sotelo PA [address] [place], [place] [phone] documented as of this encounter Visit Diagnoses Not on filedocumented in this encounter Care Teams Assistant Site Manager Relationship Specialty Start Date End Date Joe Delaney MD [address] [place], [place] [phone] PCP - General Internal Medicine 11/17/18 Twan Davis MD [address] [place] [address] Referring Physician Internal Medicine 11/17/18 Wan Rodríguez [facility] [place] [place] [address] 06/02/19 Rozina Petersen MD Gastroenterology 03/30/20 documented as of this encounter
--- OUTSIDE RECORDS SUMMARY | 2024-12-18 10:51 | XMS_ITS | Encounter Summary ---
Author Organization [facility] Address [address] [place] [address] Phone Care Team Providers Care Environmental Science Program Director Name Role Phone Joe Delaney MD Primary Care Provider [phone] Twan Davis MD Unavailable [phone] Wan Rodríguez Unavailable [phone] Rozina Petersen MD Unavailable Encounter Details Date Type Department Care Team Description 10/14/2018 Conversion Orthopedics [address] [place] [phone] Elenaor Mcfarland PA [address] [place] [address] Social History Tobacco Use Types Packs/Day Years Used Date Smoking Tobacco: Never Assessed Sex Assigned at Date Recorded Male 03/28/2020 2:09 AM E DT Job Start Date Occupation Industry Not on file Not on file Not on file documented as of this encounter Progress Notes * CHANDRA Salas - 10/14/2018 4:14 AM EDT Clinical List Update Reason for this update: New Order Action taken by: Michelle Proctor LPN October 14, 2018 4:14 PM Problem List Changes - Added new problem of SHOULDER PAIN, RIGHT (ICD-719.41) ([id number]) New Orders: Shoulder-Complete, minimum 2 Views, right [[id number]] - 10/15/2018 Please note, this documentation has been converted into the [employer] EHR from our [employer] EMR forinformational purposes only. This documentation must not be released or used for legal purposes as the note is missing the responsible provider???s signature. A copy of the legal medical record can be obtained or printed only from the [employer] EMR. documented in this encounter Plan of Treatment Upcoming Encounters Date Type Specialty Care Team Description 01/25/2025 Office Visit [place] [address] [place] [address] [phone] 02/03/2025 Office Visit [place] [address] [place] [address] [phone] documented as of this encounter Visit Diagnoses Not on filedocumented in this encounter Additional Health Concerns Infection Onset Date Last Indicated Resolved Time COVID-19 Rule Out Comment:04/29/2020 Negative (PAT) 02/20/2020 COVID19 NEGATIVE (PAT) 02/23/2020 02/23/2020 02/23/2020 10:42 AM EDT documented as of this encounter Care Teams Environmental Science Program Director Relationship Specialty Start Date End Date Joe Delaney MD [facility] [place], [place] [phone] PCP - General Internal Medicine 11/17/18 [place] [address] [place] [address] Referring Physician Internal Medicine 11/17/18 Wan Rod[facility]uez [facility] [place] [address] 06/02/19 Rozina Petersen MD Gastroenterology 03/30/20 documented as of this encounter
--- OUTSIDE RECORDS SUMMARY | 2024-12-18 10:51 | XMS_ITS | Encounter Summary ---
Author Organization [facility] Address [address] [place] [address] Phone Care Team Providers Care Drawing Checker Name Role Phone Joe Delaney MD Primary Care Provider Twan Davis MD Unavailable [phone] Wan Rodríguez Unavailable [phone] Rozina Petersen MD Unavailable Encounter Details Date Type Department Care Team Description 11/15/2021 Orders Only Internal Medicine [address] [place] [phone] Joe Delaney MD [address] [place] [address] [phone] Numbness; Essential hypertension; Goiter diffuse, adenomatous; Laboratory examination ordered as part of a [...] Office Visit Internal Medicine Joe Delaney MD [address] [place] [address] [phone] 02/03/2025 Office Visit Pain Medicine Patricia Sotelo PA [address] [place] [address] documented as of this encounter Procedures Procedure Name Priority Date/Time Associated Diagnosis Comments CBC Routine 11/15/2021 8:00 AM EDT GERD without esophagitis TSH Routine 11/15/2021 8:00 AM EDT Essential hypertension Goiter diffuse, adenomatous Laboratory examination ordered as part of a routine general medical examination VITAMIN B12 Routine 11/15/2021 8:00 AM EDT Numbness LIPID PANEL Routine 11/15/2021 8:00 AM EDT Laboratory examination ordered as part of a routine general medical examination COMPREHENSIVE METABOLIC PANEL Routine 11/15/2021 8:00 AM EDT Essential hypertension documented in this encounter Results * CBC (11/15/2021 8:00 AM EDT) WBC 6.6 4.8 - 10.8 10*3/mm3 [facility] RBC 5.2 4.7 - 6.1 10*6/mm3 [facility] Hemoglobin 15.1 14.0 - 18.0 g/dL [facility] Hematocrit 45.3 42.0 - 52.0 % [facility] MCV 87.30 80.00 - 94.00 fL [facility] MCH 29.1 26.0 - 34.0 pg [facility] MCHC 33.3 32.0 - 36.0 G/DL [facility] RDW 12.9 9.1 - 17.5 % [facility] Platelets 278 130 - 400 10*3/mm3 [facility] MPV 10.8 6.4 - 13.3 fL [facility] Neutrophils Absolute 4.52 1.60 - 6.70 10*3/mm3 [facility] Neutrophils % 68.30 43.10 - 76.10 % [facility] Lymphocytes Absolute 1.41 0.80 - 3.00 10*3/mm3 [facility] Lymphocytes Relative 21.30 12.90 - 43.90 % [facility] Monocytes Absolute 0.60 0.40 - 0.80 10*3/mm3 [facility] Monocytes Relative 9.10 4.90 - 12.50 % [facility] Eosinophils Absolute 0.07 0.00 - 0.50 10*3/mm3 [facility] Eosinophils Relative 1.10 0.00 - 5.00 % [facility] Basophils Absolute 0.01 0.00 - 1.00 10*3/mm3 [facility] Basophils Relative 0.20 0.00 - 2.00 % [facility] Blood 11/15/2021 8:00 AM EDT 11/15/2021 8:20 AM EDT Joe Delaney MD LAB BLOOD ORDERABLES FREQUENCY Performing Organization Address [facility] de Phone Number [facility] [address] [facility]. [place], [place] [phone] * (ABNORMAL) Lipid panel (11/15/2021 8:00 AM EDT) Pathologist [facility] Cholesterol 152 136 - 200 mg/dL [facility] Comment: Cholesterol Risk Levels Recommended under 200mg/dl Borderline ?200-239mg/dl High Risk ? above ??240mg/dl Triglycerides 69 48 - 200 mg/dL [facility] HDL 46 35 - 92 mg/dL [facility] LDL Cholesterol 92 0 - 140 mg/dL [facility] Total Wyd-GWP-Dxbq (LDL+VLDL) 105.8 30.0 - 130.0 mg/dl [facility] Chol/HDL Ratio 3.3(L) 3.4 - 24.0 [facility] Blood 11/15/2021 8:00 AM EDT 11/15/2021 8:20 AM EDT Joe Delaney MD LAB BLOOD ORDERABLES Performing Organization Address [facility] de Phone Number [facility] [address] [facility]. [place], [place] [phone] * (ABNORMAL) Comprehensive metabolic panel (11/15/2021 8:00 AM EDT) GLUCOSE 85 70 - 105 mg/dL [facility] Urea nitrogen 14 7 - 25 mg/dL [facility] Creatinine 1.0 0.6 - 1.3 mg/dL [facility] Calcium 10.1 8.6 - 10.3 mg/dL [facility] Total Protein 6.5 6.4 - 8.9 g/dL [facility] Albumin 4.4 3.5 - 5.7 g/dL [facility] Bilirubin, Total 0.72 0.30 - 1.00 mg/dL [facility] Alk Phos, Total 61 34 - 104 U/L [facility] AST 20 15 - 39 U/L [facility] Sodium 139 136 - 145 mmol/L [facility] Potassium 4.7 3.5 - 5.1 mmol/L [facility] Chloride 103 98 - 107 mmol/L [facility] CO2 29.4 21.0 - 31.0 mmol/L [facility] ALT 24 7 - 52 U/L [facility] Anion Gap 11 5 - 19 [facility] BUN/Creatinine Ratio 14.7 6.0 - 20.0 [facility] GFR > 60 >60 ml/min/1.7 3mGF [facility] Comment:If patient is Radha n Tajik multiply result by 1.212 Alb/Glob ratio 2.1(H) 1.2 - 1.8 [facility] Globulin 2.1 1.6 - 3.9 g/dL [facility] Blood 11/15/2021 8:00 AM EDT 11/15/2021 8:20 AM EDT Joe Delaney MD LAB BLOOD ORDERABLES [facility]. [place], [place] [phone] * TSH (11/15/2021 8:00 AM EDT) TSH 1.54 0.50 - 6.00 uIU/mL [facility] Blood 11/15/2021 8:00 AM EDT 11/15/2021 8:20 AM EDT Joe Delaney MD LAB BLOOD ORDERABLES Performing Organization Address City/[facility]/ZIP Co de Phone Number AP [facility] [place], [place] [phone] * Vitamin B12 (11/15/2021 8:00 AM EDT) Vitamin B-12 396 230 - 1,050 pg/mL [facility] Blood 11/15/2021 8:00 AM EDT 11/15/2021 8:20 AM EDT Joe Delaney MD LAB BLOOD ORDERABLES Performing Organization Address [facility] Co de Phone Number [address] [place], [place] [phone] documented in this encounter Visit Diagnoses Diagnosis Numbness Disturbance of skin sensation Essential hypertension Unspecified essential hypertension Goiter diffuse, adenomatous Unspecified nontoxic nodular goiter Laboratory examination ordered as part of a routine general medical examination GERD without esophagitis Esophageal reflux documented in this encounter Care Teams Drawing Checker Relationship Specialty Start Date End Date Joe Delaney MD [facility] [place] [address] PCP - General Internal Medicine 11/17/18 [place] [address] [place] [address] Referring Physician Internal Medicine 11/17/18 Wan Rodríguez [facility] Vlad Katz [facility] Urology [place] [phone] 06/02/19 Rozina Petersen MD Gastroenterology 03/30/20 documented as of this encounter
--- OUTSIDE RECORDS SUMMARY | 2024-12-18 10:51 | XMS_ITS | Encounter Summary ---
Author Organization [facility] Address [address] [place] [address] Phone Care Team Providers Care Tax Consultant Name Role Phone Joe Delaney MD Primary Care Provider Twan Davis MD Unavailable [phone] Wan Rodríguez Unavailable [phone] Rozina Petersen MD Unavailable Encounter Details Date Type Department Care Team Description 06/10/2018 Conversion Endocrinology [address] [place] [phone] Jayjay Allred MD [address] [place], [place] [phone] Social History Tobacco Use Types Packs/Day Years Used Date Smoking Tobacco: Never Assessed Sex Assigned at Date Recorded Male 03/28/2020 2:09 AM E DT Job Start Date Occupation Industry Not on file Not on file Not on file documented as of this encounter Plan of Treatment Upcoming Encounters Date Type Specialty Care Team Description 01/25/2025 Office Visit Internal Medicine Joe Delaney MD [address] [place] [address] 02/03/2025 Office Visit Pain Medicine Patricia Sotelo PA [address] [place] [address] documented as of this encounter Procedures Procedure Name Priority Date/Time Associated Diagnosis Comments TESTO, BIOAVAILABLE Routine 06/10/2018 8 :15 AM EST VITAMIN D 25 HYDROXY Routine 06/10/2018 8:15 AM EST TSH Routine 06/10/2018 8:15 AM EST T4, FREE Routine 06/10/2018 8:15 AM EST TESTOSTERONE TOTAL Routine 06/10/2018 8: 15 AM EST MAGNESIUM Routine 06/10/2018 8:15 AM EST documented in this encounter Results * (ABNORMAL) Testosterone, bioavailable, adult male (06/10/2018 8:15 AM EST) Testosterone, Free 5.6(L) 6.6 - 18.1 pg/mL [facility] 06/10/2018 8:15 AM EST 06/10/2018 8:23 AM EST Narrative [facility] - 06/11/2018 7:13 PM EST Testing performed at: [RN] [facility] [address], [place], [phone], , Diamond Sawer: Lynn Dukes MD Jayjay Allred MD LAB BLOOD ORDERABLES [facility] * Vitamin D 25 hydroxy (06/10/2018 8:15 AM EST) Vit D, 25-Hydroxy 40.6 30.0 - 100.0 ng/mL [facility] 06/10/2018 8:15 AM EST 06/10/2018 8:23 AM EST Narrative [facility] - 06/10/2018 1:01 PM EST Jayjay Allred MD LAB BLOOD ORDERABLES [facility] [place], [place] [phone] * Testosterone, total adult (06/10/2018 8:15 AM EST) TESTOSTERONE 611 362 - 870 ng/dl [facility] 06/10/2018 8:15 AM EST 06/10/2018 8:23 AM EST Narrative [facility] - 06/10/2018 1:01 PM EST Jayjay Allred MD LAB BLOOD ORDERABLES Performing Organization Address City/[facility]/ZIP Co de Phone Number AP Saldaña [facility]. [place], [place] [phone] * TSH (06/10/2018 8:15 AM EST) TSH 2.00 0.50 - 6.00 uIU/mL [facility] 06/10/2018 8:15 AM EST 06/10/2018 8:23 AM EST Narrative [facility] - 06/10/2018 1:01 PM EST Jayjay Allred MD LAB BLOOD ORDERABLES Performing Organization Address [facility] Co de Phone Number AP DIAZ [address] [facility]. [place], [place] [phone] * T4, free (06/10/2018 8:15 AM EST) Free T4 1.12 0.75 - 1.54 ng/dL [facility] 06/10/2018 8:15 AM EST 06/10/2018 8:23 AM EST Narrative [facility] - 06/10/2018 1:01 PM EST Jayjay Allred MD LAB BLOOD ORDERABLES Performing Organization Address [facility] Co de Phone Number AP Saldaña [facility]. [place], [place] [phone] * Magnesium (06/10/2018 8:15 AM EST) Magnesium 2.00 1.90 - 2.70 mg/dL [facility] 06/10/2018 8:15 AM EST 06/10/2018 8:23 AM EST Narrative AP DIA[facility] - 06/10/2018 9:50 AM EST Jayjay Allred MD LAB BLOOD ORDERABLES AP DIAZ [address] [facility]. [place], [place] [phone] documented in this encounter Visit Diagnoses Not on filedocumented in this encounter Additional Health Concerns Infection Onset Date Last Indicated Resolved Time COVID-19 Rule Out Comment:04/29/2020 Negative (PAT) 02/20/2020 COVID19 NEGATIVE (PAT) 02/23/2020 02/23/2020 02/23/2020 10:42 AM EDT documented as of this encounter Care Teams Tax Consultant Relationship Specialty Start Date End Date Joe Delaney MD [address] [place] [address] PCP - General Internal Medicine 11/17/18 Twan Davis MD [address] [place] [address] Referring Physician Internal Medicine 11/17/18 Wan Rodríguez [facility] Vlad Katz [facility] [place] [address] 06/02/19 Rozina Petersen MD Gastroenterology 03/30/20 documented as of this encounter
--- OUTSIDE RECORDS SUMMARY | 2024-12-18 10:51 | XMS_ITS | Continuity of Care Document ---
Author Organization [facility] Address [address] [place] [address] Phone [phone] Care Team Providers Care Machine Chocolate Molder Name Role Phone Joe Delaney MD Care Team Information Receive r [phone] Problems Active Problems Provider Date Atrial fibrillation Onset: Essential hypertension Onset: H/O: TIA Onset: 0 Paroxysmal atrial fibrillation Twan Davis MD Onset: 06/07/2016 Presence of other cardiac im plants and grafts Twan Davis MD Onset: 06/07/2016 Anxiety Onset: 0 Benign prostatic hyperplasia Ons et: Raised PSA Onset: 0 Osteoarthritis of knee Onset: Note: Right Vega's esophagus Onset: Mitral valve disorder Twan Davis MD Onset: 01/14/2018 Aortic valve disorder Twan Davis MD Onset: 02/26/2019 Thyroid nodule Twan Davis MD Onset: 02/26 Long-term current use of anticoagulant Abdelrahman Long MD Onset: 10/01/2024 Gastroesophageal reflux disease Abdelrahman anna MD Onset: 10/01/2024 Tricuspid valve disorder, non-rheumatic Abdelrahman Long MD Onset: 10/01/2024 Overweight Abdelrahman Long MD Onset: 0 10/01/2024 Palpitations Abdelrahman Long MD Onset: 0 10/01/2024 Family History Date Family Member(s) Observation Comments Father Myocardial Infarction (VT) p assed at age 83 Mother Non-Contributory Social History Type Date Description Comments Marital Status Legal Status: Marital Status Children 3 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 ETOH Use Never used alcohol Tobacco Use Start: Unknown Patient has neve r smoked Recreational Drug Use Never Used Drugs Smoking Status Reviewed: 09/30/24 Patient has n ever smoked Allergies and adverse reactions Active Allergies Criticality Reaction Severity Comments Date Amlodipine Unable to assess criticality Penicillin Unable to assess criticality Medications Active Medications SIG Qnty Indications Ordering Provider Date Losartan [id number] Tablets 1 by mouth every day CHANDRA Nash 08/16/2022 [id number] Tablets take 1 tablet by mouth every day 90tabs Kaleb Price MD Triple Magnesium Copmplex 400 MG 2 po daily Unknown Magnesium Oxide -MG [id number] Tablets 2 by mouth every day Unknown Magnesium Tauratw 200 MG 2 po daily Unknown Vadim Men Multivitamin 1 daily Unknown Vitamin [id number] Capsules 2 by mouth every morning Unknown Vitamin [id number] (5000 Ut) Tablets 2 by mouth every day Unknown Vital Signs Date Vital Result Comment 10/01/2024 8:31am BP Systolic 130 mmHg BP Diastolic 78 mmHg Heart Rate 68 /min Height 74 inches 6'2 Weight 213.00 lb BMI (Body Mass Index) 27.3 kg/m2 O2 % BldC Oximetry 96 % Results Test Acquired Date Facility Test Result H/L Range Note CBC and differential 08/29/2024 N2N/CCD Import WBC 8.79 4.80 - 10.00 X1000 RBC 6 4.70 - 6.10 x1Mil/ul Hemoglobin 17.3 g/dL 14.0 - 18.0 1 Hematocrit 49.5 % 42.0 - 52.0 MCV 82.5 fL 80.0 - 94.0 MCH 28.8 pg 27.0 - 31.0 MCHC 34.9 32.2 - 37.0 gm/dL RDW 13 % 11.5 - 14.5 Platelet Count 267 130 - 400 X1000 MPV 10.2 fL 9.4 - 12.4 Neutrophils 78.4 % High 40.0 - 74.0 Lymphocytes 13.4 % Low 19.0 - 48.0 Monocytes 7.4 % 3.4 - 9.0 Eosinophils 0.3 % 0.0 - 7.0 Basophils 0.2 % 0.0 - 2.0 Immature Granulocytes 0.3 % 0.0 - 0.5 Nucleated RBCs 0 % 0.00 - 0.20 Abs. Neutrophils 6.88 1.92 - 8.31 X1000 Abs. Lymphocyte 1.18 Low 1.20 - 3.70 X1000 Abs. Monocytes 0.65 0.14 - 0.97 X1000 Abs. Eosinophils 0.03 0.00 - 0.76 X1000 Abs. Basophils 0.02 0.00 - 0.22 X1000 Abs. Immature Gran. 0.03 High 0.00 - 0.02 X1000 Abs. Nucleated RBCs 0 0.00 - 0.02 X1000 PTT On Therapy 08/29/2024 N2N/CCD Import PTT, on Anticoag. Therapy 43.9 Low 66.4 - 93.0 sec 2 Prothrombin time on therapy 08/29/2024 N2N/CCD Import PT,Patient (on Anticoag. Therapy) 20.6 sec 3 Inr (on Anticoagulant Therapy) 1.8 Low 2.0 - 3.5 4 Comprehensive metabolic panel 08/29/2024 N2N/CCD Import Ast 21 U/L 13 - 40 5 Alt 17 U/L 16 - 61 6 Alkaline Phosphatase 88 U/L 50 - 136 Total Bilirubin 0.8 mg/dL 0.20 - 1.10 Blood Urea Nitrogen 15 mg/dL 9 - 23 7 Creatinine 0.91 mg/dL 0.60 - 1.10 8 Glomerular Filtration Rate 90 >=90 mL/min/1 .73m2 9 Glucose 101 mg/dL 74.0 - 106.0 Calcium 10.4 mg/dL 8.3 - 10.6 Total Protein 7.1 g/dL 5.7 - 8.2 Albumin 4 g/dL 3.4 - 5.0 Sodium 142 136 - 145 mEq/L Potassium 4 3.5 - 5.1 mEq/L 10 Chloride 107 98.0 - 107.0 mEq/L Anion Gap 12.1 7 - 15 Carbon Dioxide 26.9 20.0 - 31.0 mEq/L Magnesium 08/29/2024 N2N/CCD Import Magnesium 2.18 mg/dL 1.60 - 2.60 11 Troponin I 08/29/2024 N2N/CCD Import High Sensitive Troponin I 3.18 ng/L 0.00 - 78.50 12 1 Repeated and verifie d. 2 Discrepant results m ay occur due to anticoagulant effects such as coumadin, direct thrombin inhibitors; argatroban (Acova), bivalirudin (Angiomax) or dabigatran (Pradaxa) or direct factor Xa inhibitors; rivaroxaban (Xarelto), apixaban (Eliquis) and edoxaban (Savaysa). Testing performed on ACL Top 750. 3 Discrepant results m ay occur due to anticoagulant effects such as coumadin, direct thrombin inhibitors; argatroban (Acova), bivalirudin (Angiomax) or dabigatran (Pradaxa) or direct factor Xa inhibitors; rivaroxaban (Xarelto), apixaban (Eliquis) and edoxaban (Savaysa). Testing performed on ACL Top 750. 4 Suggested therapeuti c INR ranges for oral anticoagulant therapy Prevention and treatment of DVT and PE = 2.0 - 3.0 Prevention of systemic embolism with atrial fib.,acute VT and tissue prosthetic heart valves. = 2.0 - 3.0 Prevention of systemic embolism in patients with mechanical heart valves = 2.5-3.5 NOTE: The INR is only valid for patients on stable oral anticoagulant therapy Testing performed on ACL Top 750. 5 Avoid hemolyzed samp les due to high AST levels found in red blood cells. 6 Sulfasalazine concen trations in serum or plasma above 50 mg/L may cause falsely depressed ALT results with the [employer] ALTPLc assay. 7 The use of hemolyzed samples may cause a significant interference with this assay. 8 Venipuncture should occur prior to N-Acetyl Cysteine (NAC) or Metamizole (Sulpyrine) administration due to the potential for falsely depressed results. Use of this assay is not recommended for patients undergoing treatment with phenindione,due to the potential for falsely depressed results. Use of this assay is not recommended for patients being treated with etamsylate. 9 Calculated using the CKD-EPI Creatinine Equation (2020) Normal: 90 or above Mild loss of kidney function: 60-89 Mild to Moderate loss of kidney function: 45-59 Moderate to severe loss of kidney function: 30-44 Severe loss of kidney function: 15-29 Kidney Failure: Less than 15 10 Avoid hemolyzed samp les for potassium. Hemolyzed samples may give incorrect elevated potassium. Intracellular potassium concentration is 30-50 times greater than that of extracellular serum or plasma. 11 Testing performed on Siem[employer] Chemistry Module. 12 Chest pain less than 6 hours: A first measurement below the 99th percentile in patients with suspected AMI requires a second measurement 1 to 2 hours later. It may be repeated 3 to 6 hours after admission in patients whose 1 to 2 hour values are unchanged but for whom AMI is still highly suspected. If the second high sensitive cardiac troponin I value is above the 99th percentile and the increase within 1 to 2 hours is 50-60% of the 99th percentile with evidence of ischemia, AMI diagnosis is highly likely. If the second high sensitive cardiac troponin I value is unchanged, the patient can be discharged. A first measurement above the 99th percentile in patients suspected of chronic illness requires a second measurement 1 to 2 hours later to help differentiate acute from chronic necrosis. If the second high sensitive cardiac troponin I value 1 to 2 hours later shows an increase of 20% or greater of the initial value at admission, AMI diagnosis is highly likely. A high sensitive troponin value above the 99th percentile value is not always indicative of myocardial infarction. Other conditions resulting in myocardial cell damage can contribute to elevated cardiac troponin I levels. Cardiac conditions: Angina, atrial fibrillation, cardiomyopathy, coronary artery disease, heart failure, hypertensive urgency, pericarditis, recent cardiac intervention, severe valvar heart disease, tachycardia. Non-cardiac conditions: Chronic lung disease, cardiac contusion related to a traumatic injury, renal failure, pneumonia, pulmonary embolism, shock, systemic sclerosis. High Sensitive Troponin Values cannot be compared to other assays such as iSTAT. Testing performed on Siem[employer] Immunoassay Module. Assessments Date Code Description Provider 10/01/2024 Z79.01 long term care phlebotomist (current) use of a nticoagulants Abdelrahman Long MD 10/01/2024 I48.0 Paroxysmal atrial fibrillati on Abdelrahman Long MD 10/01/2024 I35.1 Nonrheumatic aortic (valve) insufficiency Abdelrahman Long MD 10/01/2024 I36.1 Nonrheumatic tri cuspid (valve) insufficiency Abdelrahman Long MD 10/01/2024 E66.3 Overweight Abdelrahman canales MD 10/01/2024 I10 Essential (primary) hyperten livia Abdelrahman Long MD 10/01/2024 R00.2 Palpitations Abdelrahman canales MD 10/01/2024 K21.9 Gastro-esophagea l reflux disease without esophagitis Abdelrahman Long MD 10/01/2024 I34.0 Nonrheumatic mitral (valve) insufficiency Abdelrahman Long MD 03/11/2024 Z79.01 long term care phlebotomist (current) use of a nticoagulants Abdelrahman Long MD 03/11/2024 I48.0 Paroxysmal atrial fibrillati on Abdelrahman Long MD 03/11/2024 T82.7xxD Infection and in flammatory reaction due to other cardiac and vascular devices, implants and grafts, subsequent encounter Abdelrahman Long MD 03/11/2024 I35.1 Nonrheumatic aortic (valve) insufficiency Abdelrahman Long MD 03/11/2024 I36.1 Nonrheumatic tri cuspid (valve) insufficiency Abdelrahman Long MD 09/25/2023 Z79.01 [facility] (current) use of a nticoagulants Patricia Etienne, PA 09/25/2023 I48.0 Paroxysmal atrial fibrillati on Patricia Etienne, PA 09/25/2023 E66.3 Overweight Patricia Etienne, PA 09/14/2022 T82.7xxD Infection and in flammatory reaction due to other cardiac and vascular devices, implants and grafts, subsequent encounter Joe Crowder MD 09/12/2022 Z45.018 Encounter for ad justment and management of other part of cardiac pacemaker CHANDRA Lu 08/16/2022 I10 Essential (primary) hyperten livia Patricia Etienne, PA 08/16/2022 I48.0 Paroxysmal atrial fibrillati on Patricia Etienne, PA 08/16/2022 Z79.01 long term care phlebotomist (current) use of a nticoagulants Patricia Etienne, PA 08/16/2022 R00.2 Palpitations Patricia Etienne, PA 09/04/2021 I10 Essential (primary) hyperten livia Chance Denson MD 09/04/2021 K21.9 Gastro-esophagea l reflux disease without esophagitis Chance Denson MD 09/04/2021 I35.1 Nonrheumatic aortic (valve) insufficiency Chance Denson MD 09/04/2021 I34.0 Nonrheumatic mitral (valve) insufficiency Chance Denson MD 09/04/2021 I36.1 Nonrheumatic tri cuspid (valve) insufficiency Chance Denson MD 09/04/2021 I37.8 Other nonrheumat ic pulmonary valve disorders Chance Denson MD 09/04/2021 R06.00 Dyspnea, unspecified Chance Denson MD 09/04/2021 R00.2 Palpitations Chance Denson MD 09/04/2021 I48.0 Paroxysmal atrial fibrillati on Chance Denson MD 09/04/2021 Z79.01 [facility] (current) use of a nticoagulants Chance Denson MD 08/08/2021 I10 Essential (primary) hyperten livia Monico Larson MD 08/08/2021 I35.1 Nonrheumatic aortic (valve) insufficiency Monico Larson MD 08/08/2021 I37.8 Other nonrheumat ic pulmonary valve disorders Monico Larson MD 08/02/2021 I10 Essential (primary) hyperten livia Eduardo Vazquez NP 08/02/2021 K21.9 Gastro-esophagea l reflux disease without esophagitis Eduardo Vazquez NP 08/02/2021 I35.1 Nonrheumatic aortic (valve) insufficiency Eduardo Vazquez NP 08/02/2021 I34.0 Nonrheumatic mitral (valve) insufficiency Eduardo Vazquez NP 08/02/2021 I36.1 Nonrheumatic tri cuspid (valve) insufficiency Eduardo Vazquez NP 08/02/2021 I37.8 Other nonrheumat ic pulmonary valve disorders Eduardo Vazquez NP 08/02/2021 R06.00 Dyspnea, unspecified Eduardo Vazquez NP 08/02/2021 R00.2 Palpitations Eduardo Vazquez NP 08/02/2021 I48.0 Paroxysmal atrial fibrillati on Eduardo Vazquez NP 08/02/2021 Z79.01 long term care phlebotomist (current) use of a nticoagulants Eduardo Vazquez NP 08/18/2020 I48.0 Paroxysmal atrial fibrillati on Abdelrahman Nice MD 08/18/2020 I10 Essential (primary) hyperten livia Abdelrahman Nice MD 08/18/2020 I35.1 Nonrheumatic aortic (valve) insufficiency Abdelrahman Nice MD 08/09/2020 I48.0 Paroxysmal atrial fibrillati on Twan Davis MD 08/09/2020 I10 Essential (primary) hyperten livia Twan Davis MD 08/09/2020 Z82.49 Family history o f ischemic heart disease and other diseases of the circulatory system Twan Davis MD 08/09/2020 I35.1 Nonrheumatic aortic (valve) insufficiency Twan Davis MD 08/09/2020 I37.1 Nonrheumatic pul monary valve insufficiency Twan Davis MD 08/09/2020 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 Twan Davis MD 08/09/2020 I34.0 Nonrheumatic mitral (valve) insufficiency Twan Davis MD 08/09/2020 R06.00 Dyspnea, unspecified Twan Davis MD 08/09/2020 I48.91 Unspecified atrial fibrillat ion Twan Davis MD 08/07/2019 I48.0 Paroxysmal atrial fibrillati on CHANDRA Lu 08/07/2019 I10 Essential (primary) hyperten livia CHANDRA Lu 08/07/2019 Z82.49 Family history o f ischemic heart disease and other diseases of the circulatory system CHANDRA Lu 08/07/2019 I35.1 Nonrheumatic aortic (valve) insufficiency CHANDRA Lu 07/13/2019 I48.0 Paroxysmal atrial fibrillati on London Glynn MD 07/13/2019 I10 Essential (primary) hyperten livia London Glynn MD 07/13/2019 Z82.49 Family history o f ischemic heart disease and other diseases of the circulatory system London Glynn MD 07/13/2019 I35.1 Nonrheumatic aortic (valve) insufficiency London Glynn MD 07/13/2019 I37.1 Nonrheumatic pul monary valve insufficiency London Glynn MD 05/07/2019 Z95.818 Presence of othe r cardiac implants and grafts Chance Denson MD 05/07/2019 I48.0 Paroxysmal atrial fibrillati on Chance Denson MD 04/07/2019 Z95.818 Presence of othe r cardiac implants and grafts Chance Denson MD 04/07/2019 I10 Essential (primary) hyperten livia Chance Denson MD 04/07/2019 I48.0 Paroxysmal atrial fibrillati on Chance Denson MD 04/07/2019 Z82.49 Family history o f ischemic heart disease and other diseases of the circulatory system Chance Denson MD 03/31/2019 Z95.818 Presence of othe r cardiac implants and grafts Chance Denson MD 03/31/2019 I48.0 Paroxysmal atrial fibrillati on Chance Denson MD 02/26/2019 I48.0 Paroxysmal atrial fibrillati on Jonelle Pollack RN, [facility] 02/26/2019 Z95.818 Presence of othe r cardiac implants and grafts Twan Davis MD 02/26/2019 I48.0 Paroxysmal atrial fibrillati on Twan Davis MD 02/26/2019 I35.1 Nonrheumatic aortic (valve) insufficiency Jonelle Pollack RN, [facility] 02/26/2019 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 Jonelle Pollack RN, [facility] 02/26/2019 I10 Essential (primary) hyperten livia Twan Davis MD 02/26/2019 I34.0 Nonrheumatic mitral (valve) insufficiency Jonelle Pollack RN, [facility] 02/26/2019 I35.1 Nonrheumatic aortic (valve) insufficiency Twan Davis MD 02/26/2019 I10 Essential (primary) hyperten livia Jonelle Pollack RN, [facility] 02/26/2019 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 thyroid nodu annia Davis MD 02/26/2019 Z95.818 Presence of othe r cardiac implants and grafts Jonelle Pollack RN, [facility] 02/23/2019 Z95.818 Presence of othe r cardiac implants and grafts Chance Denson MD 02/23/2019 I48.0 Paroxysmal atrial fibrillati on Chance Denson MD 01/16/2019 Z95.818 Presence of othe r cardiac implants and grafts Chance Denson MD 01/16/2019 I48.0 Paroxysmal atrial fibrillati on Chance Denson MD 12/15/2018 Z95.818 Presence of othe r cardiac implants and grafts Chance Denson MD 12/15/2018 I48.0 Paroxysmal atrial fibrillati on Chance Denson MD 11/07/2018 Z95.818 Presence of othe r cardiac implants and grafts Joe Crowder MD 11/07/2018 I48.0 Paroxysmal atrial fibrillati on Joe Crowder MD 10/06/2018 Z95.818 Presence of othe r cardiac implants and grafts Joe Crowder MD 10/06/2018 I48.0 Paroxysmal atrial fibrillati on Joe Crowder MD 08/28/2018 Z95.818 Presence of othe r cardiac implants and grafts Chance Denson MD 08/28/2018 I48.0 Paroxysmal atrial fibrillati on Chance Denson MD 07/24/2018 I48.0 Paroxysmal atrial fibrillati on Chance Denson MD 07/24/2018 Z95.818 Presence of othe r cardiac implants and grafts Chance Denson MD 07/03/2018 I48.0 Paroxysmal atrial fibrillati on Vasu Johnston MD 07/03/2018 Z95.818 Presence of othe r cardiac implants and grafts Vasu Johnston MD 07/03/2018 I34.0 Nonrheumatic mitral (valve) insufficiency Vasu Johnston MD 06/09/2018 I48.0 Paroxysmal atrial fibrillati on Chance Denson MD 06/09/2018 Z95.818 Presence of othe r cardiac implants and grafts Chance Denson MD 04/28/2018 I48.0 Paroxysmal atrial fibrillati on CHANDRA Lu 04/28/2018 Z95.818 Presence of othe r cardiac implants and grafts CHANDRA Lu 03/24/2018 Z95.818 Presence of othe r cardiac implants and grafts Chance Denson MD 03/24/2018 I48.0 Paroxysmal atrial fibrillati on Chance Denson MD 02/20/2018 Z95.818 Presence of othe r cardiac implants and grafts Joe Crowder MD 02/20/2018 I48.0 Paroxysmal atrial fibrillati on Joe Crowder MD 01/17/2018 Z95.818 Presence of othe r cardiac implants and grafts Joe Crowder MD 01/17/2018 I48.0 Paroxysmal atrial fibrillati on Joe Crowder MD 01/14/2018 I48.0 Paroxysmal atrial fibrillati on Twan Davis MD 01/14/2018 Z95.818 Presence of othe r cardiac implants and grafts Twan Davis MD 01/14/2018 I34.0 Nonrheumatic mitral (valve) insufficiency Twan Davis MD 01/14/2018 I10 Essential (primary) hyperten livia Twan Davis MD 01/06/2018 I48.0 Paroxysmal atrial fibrillati on Monico Larson MD 01/06/2018 Z95.818 Presence of othe r cardiac implants and grafts Monico Larson MD 01/06/2018 I34.0 Nonrheumatic mitral (valve) insufficiency Monico Larson MD 01/06/2018 R06.00 Dyspnea, unspecified Monico Larson MD 12/09/2017 Z95.818 Presence of othe r cardiac implants and grafts Chance Denson MD 12/09/2017 I48.0 Paroxysmal atrial fibrillati on Chance Denson MD 11/01/2017 Z95.818 Presence of othe r cardiac implants and grafts Rico Javed MD 11/01/2017 I48.0 Paroxysmal atrial fibrillati on Rico Javed MD 09/27/2017 Z95.818 Presence of othe r cardiac implants and grafts Mami Britt NP 09/27/2017 I48.0 Paroxysmal atrial fibrillati on Mami Britt NP 08/15/2017 Z95.818 Presence of othe r cardiac implants and grafts Chance Denson MD 08/15/2017 I48.0 Paroxysmal atrial fibrillati on Chance Denson MD 07/02/2017 Z95.818 Presence of othe r cardiac implants and grafts Joe Crowder MD 07/02/2017 I48.0 Paroxysmal atrial fibrillati on Joe Crowder MD 06/21/2017 I10 Essential (primary) hyperten livia Mata Russell MD 06/21/2017 I48.91 Unspecified atrial fibrillat ion Mata Russell MD 06/21/2017 Z95.818 Presence of othe r cardiac implants and grafts Mata Russell MD 06/21/2017 I34.0 Nonrheumatic mitral (valve) insufficiency Mata Russell MD 06/07/2017 Z95.818 Presence of othe r cardiac implants and grafts Twan Davis MD 06/07/2017 I48.91 Unspecified atrial fibrillat ion Twan Davis MD 05/23/2017 Z95.818 Presence of othe r cardiac implants and grafts Joe Crowder MD 05/23/2017 I48.91 Unspecified atrial fibrillat ion Joe Crowder MD 04/19/2017 Z95.818 Presence of othe r cardiac implants and grafts Joe Crowder MD 04/19/2017 I48.91 Unspecified atrial fibrillat ion Joe Crowder MD 03/28/2017 I48.91 Unspecified atrial fibrillat ion Twan Davis MD 03/28/2017 I10 Essential (primary) hyperten livia Twan Davis MD 03/28/2017 Z95.818 Presence of othe r cardiac implants and grafts Twan Davsi MD 03/13/2017 Z95.818 Presence of othe r cardiac implants and grafts Chance Denson MD 03/13/2017 I48.0 Paroxysmal atrial fibrillati on Chance Denson MD 02/04/2017 Z95.818 Presence of othe r cardiac implants and grafts Abdelrahman Nice MD 02/04/2017 I48.0 Paroxysmal atrial fibrillati on Abdelrahman Nice MD 01/02/2017 Z95.818 Presence of othe r cardiac implants and grafts Joe Crowder MD 01/02/2017 I48.0 Paroxysmal atrial fibrillati on Joe Crowder MD 11/29/2016 Z95.818 Presence of othe r cardiac implants and grafts Chance Denson MD 11/29/2016 I48.0 Paroxysmal atrial fibrillati on Chance Denson MD 10/19/2016 Z95.818 Presence of othe r cardiac implants and grafts Chance Denson MD 10/19/2016 I48.0 Paroxysmal atrial fibrillati on Chance Denson MD 09/11/2016 Z95.818 Presence of othe r cardiac implants and grafts Twan Davis MD 09/11/2016 I48.0 Paroxysmal atrial fibrillati on Twan Davis MD 09/11/2016 I10 Essential (primary) hyperten livia Twan Davis MD 09/11/2016 Z95.818 Presence of othe r cardiac implants and grafts Chance Denson MD 09/11/2016 I48.0 Paroxysmal atrial fibrillati on Chance Denson MD 08/08/2016 Z95.818 Presence of othe r cardiac implants and grafts Joe Crowder MD 08/08/2016 I48.0 Paroxysmal atrial fibrillati on Joe Crowder MD 07/03/2016 I48.0 Paroxysmal atrial fibrillati on Mata Russell MD 07/03/2016 Z95.818 Presence of othe r cardiac implants and grafts Chance Denson MD 07/03/2016 I48.0 Paroxysmal atrial fibrillati on Chance Denson MD 06/12/2016 I48.0 Paroxysmal atrial fibrillati on Abdelrahman Nice MD 06/07/2016 Z95.818 Presence of othe r cardiac implants and grafts Twan Davis MD 06/07/2016 I48.0 Paroxysmal atrial fibrillati on Twan Davis MD 06/07/2016 I48.91 Unspecified atrial fibrillat ion Twan Davis MD 06/07/2016 I10 Essential (primary) hyperten livia Twan Davis MD 06/07/2016 R07.9 Chest pain, unspecified Va Davis MD 05/28/2016 Z95.818 Presence of othe r cardiac implants and grafts Joe Crowder MD 05/28/2016 I48.0 Paroxysmal atrial fibrillati on Joe Crowder MD 04/25/2016 I48.91 Unspecified atrial fibrillat ion Twan Davis MD 04/25/2016 I10 Essential (primary) hyperten livia Twan Davis MD 04/25/2016 R07.9 Chest pain, unspecified Va Davis MD
--- OUTSIDE RECORDS SUMMARY | 2024-12-18 10:51 | XMS_ITS | Encounter Summary ---
Author Organization [facility] Address [address] [place] [address] Phone Care Team Providers Care Food Service Order Clerk Name Role Phone Joe Delaney MD Primary Care Provider [phone] Twan Davis MD Unavailable [phone] Wan Rodríguez Unavailable [phone] Rozina Petersen MD Unavailable Encounter Details Date Type Department Care Team Description 10/15/2018 Conversion Orthopedics [address] [place] [id number] Eleanor Mcfarland PA [address] [place] [address] Social History Tobacco Use Types Packs/Day Years Used Date Smoking Tobacco: Never Assessed Sex Assigned at Date Recorded Male 03/28/2020 2:09 AM E DT Job Start Date Occupation Industry Not on file Not on file Not on file documented as of this encounter Progress Notes * CHANDRA Salas - 10/15/2018 3:28 AM EDT Supervising Physician: Gama Etienne MD Orthopaedics Office Visit PCP: GOODMAN TIWARI,JOE Ortiz Fred is a 68 Years Old male. He presents today for a follow-up on right knee & right shoulder pain. He was not prescribed any medications at the last visit. right knee cortisone inj 05.30.2018 He states that the injections helped and lasted 2mo. He has not tried physical therapy. He states that the pain is about a 5 out of 10 and is getting worse. The activites that make the pain worse are getting up from chair, sleeping, and overhead activities. He has not tried any medications for pain relief. He does not have other mucsuloskeletal problems. Pain Scale: 5 Pain relief medications: nonePlan: . Past Medical History from 06/09/2018 reviewed - no changes required: Thyroid Nodules, Htn. Elev PSA. , A-fib. , Gerd. Allergic rhinitis. BPH. Past Surgical History from 02/19/2017 reviewed - no changes required: Tonsillectomy, childhood; , Dental implants. , Prost bx. Family History from 07/08/2014 reviewed - no changes required: Mother age 88, kidney cancer, hysterectomy, breast cancer, cancerous colon polyp. , Father is , at age 83, [place] suspected. Had high PSA but not Ca. , 1 brother is alive and well., 1 sister is alive and well. Medications: (priorto this update) LOSARTAN POTASSIUM 100 MG ORAL TABLET (LOSARTAN POTASSIUM) one po qd XARELTO 20 MG ORAL TABLET (RIVAROXABAN) one po qd PROPRANOLOL HCL TABLET (PROPRANOLOL HCL TABS) as needed when in Afib DEXILANT 60 MG ORAL CAPSULE DELAYED RELEASE (DEXLANSOPRAZOLE) one po qd Allergies: PCN (Moderate) AMLODIPINE BESYLATE (AMLODIPINE BESYLATE) (Moderate) PENICILLIN (Moderate) Social history Smoking: never smoker ETOH: social Drug use: never Employment: working Occupation: [employer] Work related injury? no Comp Case: no [...] list verified - done Vital Signs: Weight: 216.38 Height: 74in. BMI (in-lb) 27.88 Fred is a 68 Years Old pleasant male. He is AOx3, of normal build and is in NAD. He does not suffer from poor hearing, labored breathing. The patient walks with a normal gait. Skin temperature is normal on the right side and normal on the left side. There is no errythema, noscars, no tatoos, no masses, no obvious deformities noted. No swelling is noted. No eccymosis is noted. Knee Exam: Tenderness: Left Right Joint Line (Medial): mild Joint Line (Lateral): mild Patellafemoral (Medial): mild Patellafemoral(Lateral): moderate Effusion: absent Active ROM Left Right Degrees: 0-120+ Pain: no Crepitation: yes Special Tests: Left Right Angelo: neg Cardiovascular: Posterior Tibial pulses are 2+ on the right. Edema is absent on the right. Neuro: Sensation is grossly intact on the right . Assessment of Studies X-Ray: Ordered, Films Reviewed, Report Reviewed: 10/15/18 - Right Shoulder - decreased subacromial space, + deg changes 03/27/17 - Right Knee - moderate DJD most significantly involving the PF joint and medial joint space narrowing Assessed SHOULDER PAIN, RIGHT as unchanged - Funmi Mcfarland RPA-C - Signed Assessed KNEE PAIN, RIGHT as deteriorated - Funmi Mcfarland RPA-C - Signed Assessed PRIMARY LOCALIZED OSTEOARTHRITIS OF RIGHT KNEE as unchanged - Funmi Mcfarland RPA-C - Signed New Problems: LBP (ICD-724.2) (YRL28-K69.5) -- PRIMARY OSTEOARTHRITIS OF RIGHT SHOULDER (ICD-715.11) (XFL88-F43.011) -- SHOULDER IMPINGEMENT SYNDROME, RIGHT (ICD-726.2) (DPR93-L86.41) -- Plan: - Reviewed xrays right shoulder with patient. - He has h/o RCT about 10 years ago. Was told full thickness and needed surgery. He did not have repair. - Pain has increased recently with overuse and sleeping. - Discussed possible injection vs MRI vs PT refferal. He opted to monitor for now. He may consider an injection if needed. - TORADOL was given in past for his knee and he developed an episode of A fib. He has never had this happen with cortisone injecitons. - Discussed optionof repeat cortisone injection Right Knee along with risks and benefits. Patient elected to proceed today. - LBP has been worse the past 1-2 weeks. he has h/o disc herniation at L1-2 about 15 years ago. Since he has had flare ups of pain now and then. Discussed possible PT referral vs xrays and possible MRI with possible pain management referral. - He would like to monitor LB for now as well. - Due to chronic anticoagulation with Xarelto due to A. Fib he is unable to take NSAIDS. - Follow up PRN. - Patient instructed to call with any questions or concerns. New Orders: SNOMED-CT: [id number] Patient Encounter for Meaningful Use [[id number]] Fred was given his 6th Cortisone injection in his right knee(s). Using [...] this documentation has been converted into the [employer] EHR from our [facility] EMR forinformational purposes only. This documentation must not be released or used for legal purposes as the note is missing the responsible provider???s signature. A copy of the legal medical record can be obtained or printed only from the [employer] EMR. Injections Injections Dx for orders: PRIMARY LOCALIZED OSTEOARTHRITIS OF RIGHT KNEE ([id number]-D83.11) Dx for orders: KNEE PAIN; RIGHT ([id number]) Kenalog dosage given: 1mL Kenalog strength: 40mg Kenalog: Done Kenalog wasted: 0 Kenalog given by: CHANDRA Irizarry Kenalog Medication provided by: floor-stock Kenalog Mfr: [place] Kenalog Rte: Intra-articular Kenalog Lot: [id number] [address] [facility] number: [phone] Kenalog Exp Date: Kenalog Site: right knee Lidocaine dosage given: 2mL Lidocaine: given Lidocaine wasted: 0 Lidocaine given by: CHANDRA Irizarry Lidocaine Medication provided by: floor-stock Lidocaine Mfr: [place] Lidocaine Rte: Intra-articular Lidocaine Lot: [id number] Lidocaine [place] number: [id number] Lidocaine Exp Date: Lidocaine Site: right knee Marcaine dosage given: 2mL Marcaine: given Marcaine wasted: 0 Marcaine given by: CHANDRA Irizarry Marcaine Medication provided by: floor-stock Marcaine Mfr: [place] Marcaine Rte: intra-articular Marcaine Lot: [id number] Marcaine [facility] number: [id number] Marcaine Exp Date: Marcaine Site: right knee Order Changes - Added new Service order of Kenalog 40 mg ([id number]) - Signed Please note, this documentation has been converted into the [employer] EHR from our [facility] EMR forinformational purposes only. This documentation must not be released or used for legal purposes as the note is missing the responsible provider???s signature. A copy of the legal medical record can be obtained or printed only from the [facility] EMR. documented in this encounter Plan of Treatment Upcoming Encounters Date Type Specialty Care Team Description 01/25/2025 Office Visit Internal Medicine Joe Delaney MD [address] [place] [address] [id number] 02/03/2025 Office Visit Pain Medicine Patricia Sotelo PA [facility] [place] [address] documented as of this encounter Visit Diagnoses Not on filedocumented in this encounter Additional Health Concerns Infection Onset Date Last Indicated Resolved Time COVID-19 Rule Out Comment:04/29/2020 Negative (PAT) 02/20/2020 COVID19 NEGATIVE (PAT) 02/23/2020 02/23/2020 02/23/2020 10:42 AM EDT documented as of this encounter Care Teams Food Service Order Clerk Relationship Specialty Start Date End Date Joe Delaney MD [facility] [place] [address] PCP - General Internal Medicine 11/17/18 Twan Davis MD [address] [place] [address] Referring Physician Internal Medicine 11/17/18 Wan Rodríguez [facility] [place] [address] 06/02/19 Rozina Petersen MD Gastroenterology 03/30/20 documented as of this encounter
--- OUTSIDE RECORDS SUMMARY | 2024-12-18 10:51 | XMS_ITS | Encounter Summary ---
Author Organization [facility] Address [address] [place] [address] Phone Care Team Providers Care Irrigation District Manager Name Role Phone Joe Delaney MD Primary Care Provider [phone] Twan Davis MD Unavailable [phone] Wan Rodríguez Unavailable [phone] Rozina Petersen MD Unavailable Encounter Details Date Type Department Care Team Description 09/18/2021 Email from [facility] Internal Medicine [address] [place] [phone] Joe Delaney MD [address] [place] [address] Social History Tobacco Use Types Packs/Day [...] Office Visit Internal Medicine Joe Delaney MD [address] [place] [address] 02/03/2025 Office Visit Pain Medicine Patricia Sotelo PA [address] [place] [address] documented as of this encounter Visit Diagnoses Not on filedocumented in this encounter Care Teams Irrigation District Manager Relationship Specialty Start Date End Date Joe Delaney MD [address] [place] [address] PCP - General Internal Medicine 11/17/18 [place] [address] [place] [address] Referring Physician Internal Medicine 11/17/18 Wan Rodríguez [facility] [place] [address] 06/02/19 Rozina Petersen MD Gastroenterology 03/30/20 documented as of this encounter
--- OUTSIDE RECORDS SUMMARY | 2024-12-18 10:51 | XMS_ITS | Referral Summary ---
Author Organization [facility] Address [address] [id number] Care Team Providers Care Field Hand Name Role Phone Joe Delaney MD Primary Care Provider [phone] Encounters Date Type Department Care Team Description 10/20/2024 Travel 10/20/2024 8:26 AM EDT - 10/20/2024 12:18 PM EDT Emergency [facility] EMERGENCY DEPARTMENT [address] [place] [address] Stu Abraham DO Chest pain, unspecified type (Primary Dx); Dizziness Discharge Disposition: Home or Self Care from Last 3 Months Allergies Active Allergy Reactions Criticality Noted Date Comments Amlodipine Low 02/22/2016 Other reaction(s): Intolerance, Other (See Comments) slept for three days slept for three days Penicillins Swelling,Hives Low 02/22/2016 In childhood Medications losartan (COZAAR) 50 mg tablet Take 1 tablet (50 mg total) by mouth 1 (one) time each day. Active rivaroxaban (Xarelto) 20 mg tablet Take 1 tablet (20 mg total) by mouth 1 (one) time each day in the morning. Take with food. Active Social History Tobacco Use Types Packs/Day Years Used Date Smoking Tobacco: Never Assessed Sex and Gender Information Value Date Recorded Sex Assigned at Not on file Legal Sex Male 1:36 PM EDT Gender Identity Not on file Sexual Orientation Not on file Last Filed Vital Signs Vital Sign Reading Time Taken Comments Blood Pressure 129/73 10/20/2024 11:35 AM EDT Pulse 68 10/20/2024 11:35 AM EDT Temperature 36.3 ??C (97.4 ??F) 10/20/2024 8:12 AM ED T Respiratory Rate 11 10/20/2024 11:35 AM EDT Oxygen Saturation 98% 10/20/2024 11:36 AM EDT Inhaled Oxygen Concentration - - Weight 98.4 kg (217 lb) 10/20/2024 8:12 AM EDT Height 188 cm (6' 2 ) 10/20/2024 8:12 AM EDT Body Mass Index 27.86 10/20/2024 8:12 AM EDT Plan of Treatment Upcoming Encounters Date Type Department Care Team (Late st Contact Info) Description 12/21/2024 11:30 AM EDT Appointment [facility] RADIOLOGY ULTRASOUND DEPARTMENT [address] [place] [address] Procedures Procedure Name Priority Date/Time Associated Diagnosis Comments EXTRA URINE CULTURE TUBE STAT 10/20/2024 10:25 AM EDT URINALYSIS WITH CULTURE IF INDICATED STAT 10/20/2024 10:25 AM EDT URINALYSIS W/MICROSCOPIC & CULTURE IF INDICATED STAT 10/20/2024 10:[address] HEAD WO CONTRAST STAT 10/20/2024 9 :50 AM EDT XR CHEST 1 VIEW STAT 10/20/2024 9:39 AM EDT POCT GLUCOSE METER UNSOLICITED RESULTS Routine 10/20/2024 9:39 AM EDT LACTIC ACID STAT 10/20/2024 9:21 AM EDT TROPONIN I STAT 10/20/2024 9:21 AM EDT MAGNESIUM STAT 10/20/2024 9:21 AM EDT PROTHROMBIN TIME NO THERAPY OR UNKNOWN STAT 10/20/2024 9:21 AM EDT PTT NO THERAPY OR UNKNOWN STAT 10/20/2024 9:21 AM EDT COMPREHENSIVE METABOLIC PANEL STAT 10/20/2024 9:21 AM EDT CBC AND DIFFERENTIAL STAT 10/20/2024 9:21 AM EDT ECG 12-LEAD STAT 10/20/2024 8:26 AM EDT Chest pain, unspecified type from Last 3 Months Results * (ABNORMAL) Urinalysis with Culture if Indicated (10/20/2024 10:25 AM EDT) Pathologist [facility] Urine Glucose Negative Negative 10/20/2024 10:[facility] Bilirubin Negative Negative 10:35 AM [facility] Urine Blood Negative Negative 10/20/2024 10:35 AM [facility] Urine Urobilinogen <2.0 <0.2, 0.2, 1.0, <2.0 mg/dL 10/20/2024 10:35 AM [facility] Urine Leukocyte Esterase Negative Negative 10/20/2024 10:35 AM [facility] Urine Nitrite Negative Negative 10/20/2024 10:35 AM [facility] Urine Appearance CLEAR CLEAR 10/21/19 10:35 AM [facility] Urine Color Colorless Light-Yellow , Yellow, Colorless 10/20/2024 10:35 AM [facility] Urine Specific [place] 1.008(L) 1.015 - 1.025 10/20/2024 10:35 AM [facility] Urine pH 7.5(H) 5.0 - 7.0 10/20/2024 10:35 AM [facility] Urine Protein Negative Negative 10/20/2024 10:35 AM [facility] Urine Ketone Negative Negative 10/20/2024 10:35 AM [facility] Sperm 10/20/2024 10:35 AM [facility] Urine (Urine, Voided) 10/20/2024 10:25 AM EDT 10/20/2024 10:29 AM EDT us Stu Abraham DO LAB URINE ORDERABLES Final Result [facility] [address] [place] [address] [place] [address], [place] * Extra Urine Culture Tube (10/20/2024 10:25 AM EDT) Urine Urine specimen obtained by clean catch procedure / Unknown 10/20/2024 10:25 AM EDT 10/20/2024 10:29 AM EDT us Stu Abraham DO LAB BLOOD ORDERABLES Final Result [facility] * CT head wo IV contrast (10/20/2024 9:50 AM EDT) Anatomical Region Laterality Modality Head Computed Tomogra phy 10/20/2024 9:55 AM EDT Impressions 10/20/2024 9:58 AM EDT Impression: No acute process Electronically Signed by Kodi Sheikh MD 10/20/2024 9:58 AM Narrative 10/20/2024 9:58 AM EDT Patient: DILIP RESTIVE ?? : 1950 Procedure: CT HEAD WO CONTRAST Provider: STU ABRAHAM Clinical history: Dizziness, vertigo, worsening over 4 [...] the posterior fossa are intact. Procedure Note Kodi Sheikh MD - 10/20/2024 Patient: DILIP RESTIVE : 1950 Procedure: CT HEAD WO CONTRAST Provider: STU ABRAHAM Clinical history: Dizziness, vertigo, worsening over 4 [...] structures in the posterior fossa are intact. IMPRESSION: Impression: No acute process Electronically Signed by Kodi Sheikh MD 10/20/2024 9:58 AM us Stu Abraham DO IMG CT PROCEDURES Final Re sult * X-ray chest 1 view (10/20/2024 9:39 AM EDT) Anatomical Region Laterality Modality Chest, Lung Digital Radiogra phy 10/20/2024 9:41 AM EDT Narrative 10/20/2024 9:42 AM EDT Patient: DILIP SOLANO ?? : 1950 Procedure: XR CHEST 1 VIEW Provider: STU ABRAHAM Chest portable single view Clinical History: Dizziness [...] Serrano MD 10/20/2024 9:42 AM Procedure Note Anais Serrano MD - 10/20/2024 Patient: DILIP SOLANO : 1950 Procedure: XR CHEST 1 VIEW Provider: STU ABRAHAM Chest portable single view Clinical History: Dizziness [...] by Anais Serrano MD 10/20/2024 9:42 AM us Stu Abraham DO IMG XR PROCEDURES Final Re sult * POCT whole blood glucose unsolicited results (10/20/2024 9:39 AM EDT) Glucose, Fingerstick 83 70 - 110 mg/dL 10/20/2024 9:40 AM EDT [facility] Comment:Performed using [employer] StatStrip Glucose Meter Blood Structure of capillary blood vessel / Unknown 10/20/2024 9:39 AM EDT 10/20/2024 9:40 AM EDT Stu Abraham DO LAB POINT OF CARE TEST DOCKED DEVICE UNSOLICITED RESULTS Final Result [facility] [address] [place] [address] [place] [address], * (ABNORMAL) Prothrombin time INR no therapy or unknown (10/20/2024 9:21 AM EDT) PT, No Coag Tx/Coag Tx Unk 17.2(H) 10.2 - 12.9 sec LAB COAGULATION METHOD 10/20/2024 10:01 AM EDT [facility] Comment: PT reference range reflects values for patients not on anticoagulant therapy. Discrepant results may occur due to anticoagulant effects such as coumadin, direct thrombin inhibitors; argatroban (Acova), bivalirudin (Angiomax) or dabigatran (Pradaxa) or direct factor Xa inhibitors; rivaroxaban (Xarelto), apixaban (Eliquis) and edoxaban (Savaysa). Testing performed on [facility] Top 750. INR (No Coag Tx/Coag Tx Unk) 1.5(H) 0.9 - 1.1 LAB COAGULATION METHOD 10/20/2024 10:01 AM EDT [facility] Comment: Suggested therapeutic INR ranges for oral anticoagulant therapy Prevention and treatment of DVT and PE ??= 2.0 - 3.0 ?? Prevention of systemic embolism with atrial fib.,acute LA and tissue prosthetic heart valves. = 2.0 - 3.0 ?Prevention of systemic embolism in patients with mechanical heart valves = 2.5-3.5 ? NOTE: The INR is only valid for patients on stable oral anticoagulant therapy Testing performed on [employer] Top 750. ? Blood (Venous, Plasma) Venipuncture / Unknown 10/20/2024 9:21 AM EDT 10/20/2024 9:29 AM EDT us Stu Abraham DO LAB BLOOD ORDERABLES Final Result [facility] [address] [place] [address] [place] [address], [place] * Troponin I (10/20/2024 9:21 AM EDT) [facility] High Sensitive Troponin I 3.81 0.00 - 78.50 ng/L 10/20/2024 9:58 AM EDT [facility] Comment: Chest pain less than 6 hours: A [...] to help differentiate acute from chronic necrosis. ??If the second high sensitive cardiac troponin I [...] such as iSTAT. Testing performed on [employer] Immunoassay Module. Blood (Venous, Plasma) Venipuncture / Unknown 10/20/2024 9:21 AM EDT 10/20/2024 9:28 AM EDT us Stu Abraham DO LAB BLOOD ORDERABLES Final Result [facility] [address] [place] [address] [place] [address], * (ABNORMAL) PTT No Therapy or Unknown (10/20/2024 9:21 AM EDT) PTT, No Coag Tx/Coag Tx Unk 43.5(H) 25.1 - 36.5 sec LAB COAGULATION METHOD 10/20/2024 10:01 AM EDT [facility] Comment: Discrepant results may occur due to anticoagulant effects such as coumadin, direct thrombin inhibitors; argatroban (Acova), bivalirudin (Angiomax) or dabigatran (Pradaxa) or direct factor Xa inhibitors; rivaroxaban (Xarelto), apixaban (Eliquis) and edoxaban (Savaysa). Testing performed on [employer] 750. Blood (Venous, Plasma) Venipuncture / Unknown 10/20/2024 9:21 AM EDT 10/20/2024 9:29 AM EDT Stu Abraham DO LAB BLOOD ORDERABLES Final Result [facility] [address] [place] [address] [place] [address], * (ABNORMAL) CBC and differential (10/20/2024 9:21 AM EDT) Pathologist [facility] WBC 5.00 4.80 - 10.00 X1000 LAB HEMETOLOGY METHOD 10/20/2024 9:37 AM EDT [facility] RBC 5.51 4.70 - 6.10 x1Mil/ul LAB HEMETOLOGY METHOD 10/20/2024 9:37 AM EDT [facility] Hemoglobin 15.9 14.0 - 18.0 g/dL LAB HEMETOLOGY METHOD 10/20/2024 9:37 AM EDT [facility] Hematocrit 45.8 42.0 - 52.0 % LAB HEMETOLOGY METHOD 10/20/2024 9:37 AM EDT [facility] MCV 83.1 80.0 - 94.0 fL LAB HEMETOLOGY METHOD 10/20/2024 9:37 AM EDT [facility] MCH 28.9 27.0 - 31.0 pg LAB HEMETOLOGY METHOD 10/20/2024 9:37 AM EDT [facility] MCHC 34.7 32.2 - 37.0 gm/dL LAB HEMETOLOGY METHOD 10/20/2024 9:37 AM EDT [facility] RDW 13.1 11.5 - 14.5 % LAB HEMETOLOGY METHOD 10/20/2024 9:37 AM EDT [facility] Platelet Count 257 130 - 400 X1000 LAB HEMETOLOGY METHOD 10/20/2024 9:37 AM EDT [facility] MPV 10.2 9.4 - 12.4 fL LAB HEMETOLOGY METHOD 10/20/2024 9:37 AM EDT [facility] Neutrophils 57.0 40.0 - 74.0 % LAB HEMETOLOGY METHOD 10/20/2024 9:37 AM EDT [facility] Lymphocytes 31.2 19.0 - 48.0 % LAB HEMETOLOGY METHOD 10/20/2024 9:37 AM EDT [facility] Monocytes 10.0(H) 3.4 - 9.0 % LAB HEMETOLOGY METHOD 10/20/2024 9:37 AM EDT [facility] Eosinophils 1.2 0.0 - 7.0 % LAB HEMETOLOGY METHOD 10/20/2024 9:37 AM EDT [facility] Basophils 0.4 0.0 - 2.0 % LAB HEMETOLOGY METHOD 10/20/2024 9:37 AM EDT [facility] Immature Granulocytes 0.2 0.0 - 0.5 % LAB HEMETOLOGY METHOD 10/20/2024 9:37 AM EDT [facility] Nucleated RBCs 0.00 0.00 - 0.20 % LAB HEMETOLOGY METHOD 10/20/2024 9:37 AM EDT [facility] Abs. Neutrophils 2.85 1.92 - 8.31 X1000 LAB HEMETOLOGY METHOD 10/20/2024 9:37 AM EDT [facility] Abs. Lymphocyte 1.56 1.20 - 3.70 X1000 LAB HEMETOLOGY METHOD 10/20/2024 9:37 AM EDT [facility] Abs. Monocytes 0.50 0.14 - 0.97 X1000 LAB HEMETOLOGY METHOD 10/20/2024 9:37 AM EDT [facility] Abs. Eosinophils 0.06 0.00 - 0.76 X1000 LAB HEMETOLOGY METHOD 10/20/2024 9:37 AM EDT [facility] Abs. Basophils 0.02 0.00 - 0.22 X1000 LAB HEMETOLOGY METHOD 10/20/2024 9:37 AM EDT [facility] Abs. Immature Gran. 0.01 0.00 - 0.02 X1000 LAB HEMETOLOGY METHOD 10/20/2024 9:37 AM EDT [facility] Abs. Nucleated RBCs 0.00 0.00 - 0.02 X1000 LAB HEMETOLOGY METHOD 10/20/2024 9:37 AM EDT [facility] Blood (Venous, Whole Blood) Venipuncture / Unknown 10/20/2024 9:21 AM EDT 10/20/2024 9:29 AM EDT Narrative [facility] - 10/20/2024 9:37 AM EDT Testing performed on [employer] XN-9100. Stu Abraham DO LAB BLOOD ORDERABLES Final Result [address] [place] [address], * Magnesium (10/20/2024 9:21 AM EDT) Magnesium 1.84 1.60 - 2.60 mg/dL 10/20/2024 9:58 AM EDT [facility] Comment:Testing performed on [employer] Chemistry Module. Blood (Venous, Plasma) Venipuncture / Unknown 10/20/2024 9:21 AM EDT 10/20/2024 9:28 AM EDT Stu Abraham DO LAB BLOOD ORDERABLES Final Result [facility] [address] [place] [address] [place] [address], [place] * Lactic acid (10/20/2024 9:21 AM EDT) Pathologist [facility] Lactic Acid 1.0 0.5 - 2.2 mmol/L 10/20/2024 10:07 AM EDT [facility] Comment: Venipuncture should occur prior to N-Acetyl Cysteine (NAC) administration due to the potential for falsely depressed results. Testing performed on [employer] Chemistry Module. Blood (Venous, Plasma) Venipuncture / Unknown 10/20/2024 9:21 AM EDT 10/20/2024 9:34 AM EDT Stu Abraham DO LAB BLOOD ORDERABLES Final Result [facility] [address] [place] [address] [place] [address], [place] * (ABNORMAL) Comprehensive metabolic panel (10/20/2024 9:21 AM EDT) Pathologist [facility] AST 19 13 - 40 U/L 10/20/2024 9:58 AM EDT [facility] Comment:Avoid hemolyzed samp les due to high AST levels found in red blood cells. ALT 27 16 - 61 U/L 10/20/2024 9:58 AM EDT [facility] Comment:Sulfasalazine concen trations in serum or plasma above 50 mg/L may cause falsely depressed ALT results with the [employer] ALTPLc assay. Alkaline Phosphatase 88 50 - 136 U/L 10/20/2024 9:58 AM EDT [facility] Total Bilirubin 0.80 0.20 - 1.10 mg/dL 10/20/2024 9:58 AM EDT [facility] Blood Urea Nitrogen 10 9 - 23 mg/dL 10/20/2024 9:58 AM EDT [facility] Comment:The use of hemolyzed samples may cause a significant interference with this assay. Creatinine 0.74 0.60 - 1.10 mg/dL 10/20/2024 9:58 AM EDT [facility] Comment: Venipuncture should occur prior to N-Acetyl Cysteine (NAC) or Metamizole (Sulpyrine) administration due to the potential for falsely depressed results. Use of this assay is not recommended for patients undergoing treatment with phenindione,due to the potential for falsely depressed results. Use of this assay is not recommended for patients being treated with etamsylate. Glomerular Filtration Rate >90 >=90 mL/min/1. 73m2 10/20/2024 9:58 AM [facility] Comment: Calculated using the CKD-EPI Creatinine Equation (2020) Normal: 90 or above Mild loss of kidney function: 60-89 Mild to Moderate loss of kidney function: 45-59 Moderate to severe loss of kidney function: 30-44 Severe loss of kidney function: 15-29 Kidney Failure: Less than 15 Glucose 89.0 74.0 - 106.0 mg/dL 10/20/2024 9:58 AM [facility] Calcium 9.6 8.3 - 10.6 mg/dL 10/20/2024 9:58 AM [facility] Total Protein 7.1 5.7 - 8.2 g/dL 10/20/2024 9:58 AM [facility] Albumin 3.9 3.4 - 5.0 g/dL 10/20/2024 9:58 AM [facility] Sodium 142 136 - 145 mEq/L 10/20/2024 9:58 AM [facility] Potassium 4.0 3.5 - 5.1 mEq/L 10/20/2024 9:58 AM [facility] Comment:Avoid hemolyzed [facility] les for potassium. Hemolyzed samples may give incorrect elevated potassium. Intracellular potassium concentration is 30-50 times greater than that of extracellular serum or plasma. Chloride 108.0(H) 98.0 - 107.0 mEq/L 10/20/2024 9:58 AM [facility] Anion Gap 12.4 7 - 15 10/20/2024 9:58 AM [facility] Carbon Dioxide 25.6 20.0 - 31.0 mEq/L 10/20/2024 9:58 AM EDT [facility] Blood (Venous, Plasma) Venipuncture / Unknown 10/20/2024 9:21 AM EDT 10/20/2024 9:28 AM EDT Narrative [facility] - 10/20/2024 9:58 AM EDT All testing contained within this panel performed on [employer] Chemistry Module. us Stu Abraham DO LAB BLOOD ORDERABLES Final Result [facility] [address] [place] [address] [place] [address], [place] * ECG 12 lead (10/20/2024 8:26 AM EDT) 10/20/2024 8:26 AM EDT Narrative [facility] - 10/20/2024 8:26 AM EDT ?[facility] ?[address] [place], [place] ??[address] ? Test Date: ?2024-10-20 Pat Name: ? DILIP RESTIVE ?Department: ?? W26 ? Room: ? Gender: ? Male ? Scraper Hand: ?? : ?1950 ? Requested By: PUNEET JEETR Order Number: [id number] ? Reading MD: ?? Puneet Jeter ? Measurements Intervals ?[place] ? Rate: ? 60 ? P: ?45 MO: ? 212 ?QRS: ?-13 QRSD: ? 112 ?T: ?16 QT: ? 407 ? QTc: ?407 ? Interpretive Statements Sinus rhythm Borderline prolonged MO interval Abnormal R-wave progression, early transition Inferior infarct, old Baseline wander in lead(s) V5 Compared to ECG 08/29/2024 09:11:02 Myocardial infarct finding now present Atrial fibrillation no longer present ST (T wave) deviation no longer present Electronically Signed On 10-22-2024 12:09:20 EDT by Puneet Jeter us Puneet Jeter DO ECG ORDERABLES Final Result [facility] from Last 3 Months Insurance [facility] [place] [id number] Care Teams Field Hand Relationship Specialty Start Date End Date Joe Delaney MD [address] [place] [address] PCP - General General Medicine 03/17/20
--- OUTSIDE RECORDS SUMMARY | 2024-12-18 10:51 | XMS_ITS | Encounter Summary ---
Author Organization [facility] Address [address] [place] [address] Phone Care Team Providers Care Kettleman Name Role Phone Joe Delaney MD Primary Care Provider [phone] Twan Davis MD Unavailable [phone] Wan Rodríguez Unavailable [phone] Rozina Petersen MD Unavailable Encounter Details Date Type Department Care Team Description 02/06/2022 Email from [facility] [address] [place] [phone] Joe eDlaney MD [address] [place] [address] [phone] Social History Tobacco Use Types Packs/Day Years [...] Visit Internal Medicine Joe Delaney MD [address] [place], [place] [phone] 02/03/2025 Office Visit Pain Medicine Patricia Sotelo PA [address] [place], [place] [phone] documented as of this encounter Visit Diagnoses Not on filedocumented in this encounter Care Teams Kettleman Relationship Specialty Start Date End Date Joe Delaney MD [address] [place], [place] [phone] PCP - General Internal Medicine 11/17/18 Twan Davis MD [address] [place] [address] Referring Physician Internal Medicine 11/17/[address] [facility] [place] [address] 06/02/19 Rozina Petersen MD Gastroenterology 03/30/20 documented as of this encounter
--- OUTSIDE RECORDS SUMMARY | 2024-12-18 10:51 | XMS_ITS | Encounter Summary ---
Author Organization [facility] Address [address] [place] [address] Phone Care Team Providers Care Quality Improvement Analyst Name Role Phone Joe Delaney MD Primary Care Provider [phone] Twan Davis MD Unavailable [phone] Wan Rodríguez Unavailable [phone] Rozina Petersen MD Unavailable Encounter Details Date Type Department Care Team Description 02/06/2022 Email from [facility] [address] [place] [phone] Mariela Bowden, DPM [address] [place], [place] [phone] Social History Tobacco Use Types Packs/Day Years [...] Visit Internal Medicine Joe Delaney MD [address] [place] [address] 02/03/2025 Office Visit Pain Medicine Patricia Sotelo PA [address] [place], [place] [phone] documented as of this encounter Visit Diagnoses Not on filedocumented in this encounter Care Teams Quality Improvement Analyst Relationship Specialty Start Date End Date Joe Delaney MD [address] [place], [place] [phone] PCP - General Internal Medicine 11/17/18 Twan Davis MD [address] [place] [address] Referring Physician Internal Medicine 11/17/18 Wan Rodríguez [facility] [place] [address] 06/02/19 Rozina Petersen MD Gastroenterology 03/30/20 documented as of this encounter
--- OUTSIDE RECORDS SUMMARY | 2024-12-18 10:51 | XMS_ITS | Encounter Summary ---
Author Organization [facility] Address [address] [place] [address] Phone Care Team Providers Care Car Repair Supervisor Name Role Phone Joe Delaney MD Primary Care Provider [phone] Twan Davis MD Unavailable [phone] Wan Rodríguez Unavailable [phone] Rozina Petersen MD Unavailable Encounter Details Date Type Department Care Team Description 01/10/2023 Email from [facility] [address] [place] [phone] Joe Delaney MD [address] [place] [phone] Social History Tobacco Use Types Packs/Day [...] Office Visit Internal Medicine Joe Delaney MD [address] [place] [address] 02/03/2025 Office Visit Pain Medicine Patricia Sotelo PA [address] [place], [place] [phone] documented as of this encounter Visit Diagnoses Not on filedocumented in this encounter Care Teams Car Repair Supervisor Relationship Specialty Start Date End Date Joe Delaney MD [address] [place] [address] PCP - General Internal Medicine 11/17/18 [place] [address] [place] [address] Referring Physician Internal Medicine 11/17/18 Wan Rodríguez [facility] [place] [address] 06/02/19 Rozina Petersen MD Gastroenterology 03/30/20 documented as of this encounter
--- OUTSIDE RECORDS SUMMARY | 2024-12-18 10:51 | XMS_ITS | Encounter Summary ---
Author Organization [facility] Address [address] [place] [address] Phone Care Team Providers Care Lead Scientist Name Role Phone Joe Delaney MD Primary Care Provider [phone] Twan Davis MD Unavailable Wan Rodríguez Unavailable [phone] Rozina Petersen MD Unavailable Encounter Details Date Type Department Care Team Description 04/23/2018 Conversion Orthopedics [address] [place] [phone] Eleanor Mcfarland PA [address] [place] [address] Social History Tobacco Use Types Packs/Day Years Used Date Smoking Tobacco: Never Assessed Sex Assigned at Date Recorded Male 03/28/2020 2:09 AM E DT Job Start Date Occupation Industry Not on file Not on file Not on file documented as of this encounter Procedure Notes * CHANDRA Salas - 04/23/2018 11:23 AM EDT ORTHOFLO injection given in his right knee(s)He has noted no improvement since his last injection. He states that his pain is about a 5 out of 10 today. Using aseptic technique the right If he has any questions or concerns before that time he will not hesitate to contact us. Ultrasound Guided Right Knee OrthoFlo Injection: Procedure: Comprehensive informed verbal and/or written consent was obtained. The patient was in a seated position with knee flexed. Confirmation of the procedure to be performed was obtained from the patient. The patient???s right knee was sterilely prepped with alcohol. The ultrasound transducer was placed to localize the patellar tendon, then using a transverse plane approach over the mid substance patellar tendon the joint space was confirmed. 70% Ethyl chloride was used to anesthetize the skin. Using a 21 gauge 1.5 inch needle, mixture of OrthoFlo/1 mL normal saline diluent was injected into the right knee joint from the anterolateral approach. The needle was removed, hemostasis obtained, then Band-Aid was placed. Complications: none Blood Loss: minimal Assessment: Patient tolerated procedure and remained stable. At the time of discharge, the patient noted NO relief of knee pain. Post Procedure Instructions: -Thepatient was instructed to ice their knee upon leaving clinic and refrain from overuse over the next 3 days. -The patient was instructed to call the office with any usual pain, swelling, or redness occurred in the injected area. -The patient was given a follow up appointment to evaluate response to the injection. Injections Billing Diagnosis (choose up to 4) KNEE PAIN, RIGHT (ICD-719.46) ([id number]), PRIMARY LOCALIZED OSTEOARTHRITIS OF RIGHT KNEE (ICD-715.16) ([id number]) Please note, this documentation has been converted into the [employer] EHR from our [employer] EMR forinformational purposes only. This documentation must not be released or used for legal purposes as the note is missing the responsible provider???s signature. A copy of the legal medical record can be obtained or printed only from the [employer] EMR. documented in this encounter Plan of Treatment Upcoming Encounters Date Type Specialty Care Team Description 01/25/2025 Office Visit Internal Medicine Joe Delaney MD [address] [place] [address] 02/03/2025 Office Visit Pain Medicine Patricia Sotelo PA [address] [place] [address] documented as of this encounter Visit Diagnoses Not on filedocumented in this encounter Additional Health Concerns Infection Onset Date Last Indicated Resolved Time COVID-19 Rule Out Comment:04/29/2020 Negative (PAT) 02/20/2020 COVID19 NEGATIVE (PAT) 02/23/2020 02/23/2020 02/23/2020 10:42 AM EDT documented as of this encounter Care Teams Lead Scientist Relationship Specialty Start Date End Date Joe Delaney MD [address] [place] [address] PCP - General Internal Medicine 11/17/18 Twan Davis MD [address] [place] [address] Referring Physician Internal Medicine 11/17/18 Wan Rodríguez [facility] Vlad Katz [facility] [address] 06/02/19 Rozina Petersen MD Gastroenterology 03/30/20 documented as of this encounter
--- OUTSIDE RECORDS SUMMARY | 2024-12-18 10:51 | XMS_ITS | Encounter Summary ---
Author Organization [facility] Address [address] [place] [address] Phone Care Team Providers Care On Site Coordinator Name Role Phone Joe Delaney MD Primary Care Provider [phone] Twan Davis MD Unavailable [phone] Wan Rodríguez Unavailable [phone] Rozina Petersen MD Unavailable Encounter Details Date Type Department Care Team Description 06/18/2024 Email from [email or web address] [address] [place] [phone] Jamison Castano MD [address] [place], [place] [id number] Social History Tobacco Use Types Packs/Day Years [...] Visit Internal Medicine Joe Delaney MD [address] [place], [place] [id number] 02/03/2025 Office Visit Pain Medicine Patricia Sotelo PA [address] [place], [place] [phone] documented as of this encounter Visit Diagnoses Not on filedocumented in this encounter Care Teams On Site Coordinator Relationship Specialty Start Date End Date Joe Delaney MD [address] [place], [place] [phone] PCP - General Internal Medicine 11/17/18 Twan Davis MD [address] [place] [address] Referring Physician Internal Medicine 11/17/18 Wan Rodríguez [facility] Vlad Katz [facility] [place] [address] 06/02/19 Rozina Petersen MD Gastroenterology 03/30/20 documented as of this encounter
--- OUTSIDE RECORDS SUMMARY | 2024-12-18 10:51 | XMS_ITS | Encounter Summary ---
Author Organization [facility] Address [address] [place] [address] Phone Care Team Providers Care Svp Digital [employer] Food [employer] Cooking Name Role Phone Joe Delaney MD Primary Care Provider Twan Davis MD Unavailable [phone] Wan Rodríguez Unavailable Rozina Petersen MD Unavailable Encounter Details Date Type Department Care Team Description 11/01/2018 Conversion Internal Medicine [address] [place] [address] Joe Delaney MD [address] [place], [place] [id number] Social History Tobacco Use Types Packs/Day Years Used Date Smoking Tobacco: Never Assessed Sex Assigned at Date Recorded Male 03/28/2020 2:09 AM E DT Job Start Date Occupation Industry Not on file Not on file Not on file documented as of this encounter Plan of Treatment Upcoming Encounters Date Type Specialty Care Team Description 01/25/2025 Office Visit Internal Medicine Joe Delaney MD [address] [place], [place] [phone] 02/03/2025 Office Visit Pain Medicine Patricia Sotelo PA [address] [place] [address] documented as of this encounter Procedures Procedure Name Priority Date/Time Associated Diagnosis Comments US THYROID Routine 05/07/2017 4:36 PM EDT X-RAY, KNEE 4 OR MORE VIEWS-COMPLETE, RIGHT Routine 03/27/2017 2:46 PM EDT US THYROID Routine 06/26/2016 6:25 PM EST documented in this encounter Results * US THYROID (05/07/2017 4:36 PM EDT) Anatomical Region Laterality Modality Ultrasound 05/07/2017 4:00 PM EDT Narrative 05/07/2017 4:36 PM EDT ULTRASOUND EXAMINATION US THYROID Clinical History THYROID NODULES Comparison 06/26/2016 ?? Findings Linear array ultrasound study of the thyroid gland is performed which reveals lobes of the thyroid gland to be enlarged in size. The right lobe measures 5.5 x 2.7 x 2.6. ??The left lobe is not clearly seen. ?? There is heterogeneity of the echo pattern of the thyroid ?? Within the mid right lobe is a complex nodule 2.1 x 1.1 x 1.5 cm. This is probably unchanged. More posteriorly is a hypoechoic nodule 2.9 x 2.5 x 2.1 cm. This is slightly smaller ?? Within what appears to be the lower left thyroid bed is a hyperechoic nodule 7 x 3 x 8 mm, grossly unchanged ?? Region of the isthmus appears unremarkable and is normal in thickness. IMPRESSION Right-sided thyroid nodules appear similar to perhaps slightly decreased in size. ??Persistent echogenic nodule in the left thyroid bed grossly unchanged Patient Name: DILIP CASAS Exam Date: 05/07/2017 16:19:00 Requested By: JAYJAY ALLRED, ?? Transcribed By: LEROY HARPER, ??,RADIOLOGIST Signed By: LEROY HARPER, ??,RADIOLOGIST on 05/07/2017 16:36:00 Procedure Note Leroy Harper - 11/01/2018 ULTRASOUND EXAMINATION US THYROID Clinical History THYROID NODULES Comparison 06/26/2016 Findings Linear array ultrasound study of the thyroid gland is performed which reveals lobes of the thyroid gland to be enlarged in size. The right lobe measures 5.5 x 2.7 x 2.6. The left lobe is not clearly seen. There is heterogeneity of the echo pattern of the thyroid Within the mid right lobe is a complex nodule 2.1 x 1.1 x 1.5 cm. This is probably unchanged. More posteriorly is a hypoechoic nodule 2.9 x 2.5 x 2.1 cm. This is slightly smaller Within what appears to be the lower left thyroid bed is a hyperechoic nodule 7 x 3 x 8 mm, grossly unchanged Region of the isthmus appears unremarkable and is normal in thickness. IMPRESSION Right-sided thyroid nodules appear similar to perhaps slightly decreased in size. Persistent echogenic nodule in the left thyroid bed grossly unchanged Patient Name: DILIP CASAS Exam Date: 05/07/2017 16:19:00 Requested By: JAYJAY ALLRED MD Transcribed By: LEROY HARPER MD,RADIOLOGIST Signed By: LEROY HARPER MD,RADIOLOGIST on 05/07/2017 16:36:00 Jayjay Allred MD [facility] US ORDERABL ES * X-Ray, Knee 4 or More Views-Complete, right (03/27/2017 2:46 PM EDT) Anatomical Region Laterality Modality Radiographic Kathie ging 03/27/2017 8:20 AM EDT Narrative 03/27/2017 2:46 PM EDT RADIOLOGIC EXAMINATION DX KNEE COMP RT 4 OR MORE V CLINICAL HISTORY: Osteoarthritis ?? COMPARISON: December 20, 2014 FINDINGS: Four-views of the right knee are submitted. ?? There is tricompartmental osteoarthritis greatest within the lateral and patellofemoral compartments. ?? No fracture or joint effusion is demonstrated. ?? IMPRESSION Tricompartmental osteoarthritis. Patient Name: DILIP CASAS Exam Date: 03/27/2017 14:40:00 Requested By: FRANCOIS CRUZ, ??CHANDRA Transcribed By: LUCIO EDUARDO, ?? Signed By: LUCIO EDUARDO, ?? on 03/27/2017 14:46:00 Procedure Note Lucio Eduardo MD - 11/01/2018 RADIOLOGIC EXAMINATION DX KNEE COMP RT 4 OR MORE V CLINICAL HISTORY: Osteoarthritis COMPARISON: December 20, 2014 FINDINGS: Four-views of the right knee are submitted. There is tricompartmental osteoarthritis greatest within the lateral and patellofemoral compartments. No fracture or joint effusion is demonstrated. IMPRESSION Tricompartmental osteoarthritis. Patient Name: DILIP CASAS Exam Date: 03/27/2017 14:40:00 Requested By: SEBASTIAN ARTIS, CHANDRA PARRISH Transcribed By: LUCIO EDUARDO MD Signed By: LUCIO EDUARDO MD on 03/27/2017 14:46:00 Eleanor ARTIS [facility] DIAGNOSTIC ORDERABLES * US THYROID (06/26/2016 6:25 PM EST) Anatomical Region Laterality Modality Ultrasound 06/26/2016 3:30 PM EST Narrative 06/26/2016 6:25 PM EST ULTRASOUND EXAMINATION US THYROID Clinical History THYROID NODULE Comparison Prior studies are presently not available for comparison. Findings Linear array ultrasound study of the thyroid gland is performed which reveals asymmetrical enlargement of the right lobe with marked heterogeneity. ??The right lobe measures 61 x 28 x 23 mm. Thyroidal tissue to the left of midline is not seen. ?? With regards to the right lobe, a complex 16 x 14 x 16 mm cyst is demonstrated anteriorly within the superior pole with a more solid appearing nodule at the its inferior pole measuring 32 x 26 x 28 mm. ?? To the left of midline, an echogenic spherical focus is seen measuring 9 x 6 x 7 mm which may represent a small lipoma. ?? Region of the isthmus appears unremarkable and is normal in thickness. IMPRESSION Heterogeneity and enlargement of the right lobe most compatible with a multinodular goiter. 2 nodular areas are seen with dimensions as given above within the right lobe for which biopsy should be considered. Patient Name: DILIP CASAS Exam Date: 06/26/2016 15:49:00 Requested By: JOE DELANEY ?? Transcribed By: CHERYL SHEFFIELD ?? Signed By: CHERYL SHEFFIELD ??MD on 06/26/2016 18:25:00 Procedure Note Cheryl Sheffield MD - 11/01/2018 ULTRASOUND EXAMINATION US THYROID Clinical History THYROID NODULE Comparison Prior studies are presently not available for comparison. Findings Linear array ultrasound study of the thyroid gland is performed which reveals asymmetrical enlargement of the right lobe with marked heterogeneity. The right lobe measures 61 x 28 x 23 mm. Thyroidal tissue to the left of midline is not seen. With regards to the right lobe, a complex 16 x 14 x 16 mm cyst is demonstrated anteriorly within the superior pole with a more solid appearing nodule at the its inferior pole measuring 32 x 26 x 28 mm. To the left of midline, an echogenic spherical focus is seen measuring 9 x 6 x 7 mm which may represent a small lipoma. Region of the isthmus appears unremarkable and is normal in thickness. IMPRESSION Heterogeneity and enlargement of the right lobe most compatible with a multinodular goiter. 2 nodular areas are seen with dimensions as given above within the right lobe for which biopsy should be considered. Patient Name: DILIP CASAS Exam Date: 06/26/2016 15:49:00 Requested By: JOE DELANEY MD Transcribed By: CHERYL SHEFFIELD MD Signed By: CHERYL SHEFFIELD MD on 06/26/2016 18:25:00 Joe Delaney MD [facility] US ORDERABL ES documented in this encounter Visit Diagnoses Not on filedocumented in this encounter Additional Health Concerns Infection Onset Date Last Indicated Resolved Time COVID-19 Rule Out Comment:04/29/2020 Negative (PAT) 02/20/2020 COVID19 NEGATIVE (PAT) 02/23/2020 02/23/2020 02/23/2020 10:42 AM EDT documented as of this encounter Care Teams S[employer] Digital [employer] Food & Cooking Relationship Specialty Start Date End Date Joe Delaney MD [address] [place] [address] PCP - General Internal Medicine 11/17/18 Twan Davis MD [address] [place] [address] Referring Physician Internal Medicine 11/17/18 Wan Rodríguez [facility] [place] [address] 06/02/19 Rozina Petersen MD Gastroenterology 03/30/20 documented as of this encounter
--- OUTSIDE RECORDS SUMMARY | 2024-12-18 10:51 | XMS_ITS | Encounter Summary ---
Author Organization [facility] Address [address] [place] [address] Phone Care Team Providers Care Ambulance Operations Supervisor Name Role Phone Joe Delaney MD Primary Care Provider [phone] Twan Davis MD Unavailable [phone] Wan Rodríguez Unavailable [phone] Rozina Petersen MD Unavailable Encounter Details Date Type Department Care Team Description 03/21/2022 Email from [facility] [address] [place] [phone] Jamison Castano MD [address] [place] [address] Social History Tobacco Use Types Packs/Day [...] suspected to have Coronavirus/COVID-19? No / Unsure 03/22/2022 12:48 PM EDT documented as of this encounter Plan of Treatment Upcoming Encounters Date Type Specialty Care Team Description 01/25/2025 Office Visit Internal Medicine Joe Delaney MD [address] [place] [address] 02/03/2025 Office Visit Pain Medicine Patricia Sotelo PA [address] [place] [address] documented as of this encounter Visit Diagnoses Not on filedocumented in this encounter Care Teams Ambulance Operations Supervisor Relationship Specialty Start Date End Date Joe Delaney MD [address] [place] [address] PCP - General Internal Medicine 11/17/18 Twan Davis MD [address] [place] [address] Referring Physician Internal Medicine 11/17/18 Wan Rodríguez [facility] [place] [address] 06/02/19 Rozina Petersen MD Gastroenterology 03/30/20 documented as of this encounter
--- OUTSIDE RECORDS SUMMARY | 2024-12-18 10:51 | XMS_ITS | Encounter Summary ---
Author Organization [facility] Address [address] [place] [address] Phone Care Team Providers Care Corporate Safety Director Name Role Phone Joe Delaney MD Primary Care Provider [phone] Twan Davis MD Unavailable [phone] Wan Rodríguez Unavailable [phone] Rozina Petersen MD Unavailable Encounter Details Date Type Department Care Team Description 01/07/2023 Email from [facility] Internal Medicine [address] [place] [phone] Joe Delaney MD [address] [place] [address] Social History Tobacco Use Types Packs/Day [...] Office Visit Internal Medicine Joe Delaney MD [address] [place] [address] 02/03/2025 Office Visit Pain Medicine Patricia Sotelo PA [address] [place], [place] [address] documented as of this encounter Visit Diagnoses Not on filedocumented in this encounter Care Teams Corporate Safety Director Relationship Specialty Start Date End Date Joe Delaney MD [address] [place] [address] PCP - General Internal Medicine 11/17/18 [place] [address] [place] [address] Referring Physician Internal Medicine 11/17/18 Wan Rod[facility]guez [facility] [place] [address] 06/02/19 Rozina Petersen MD Gastroenterology 03/30/20 documented as of this encounter
--- OUTSIDE RECORDS SUMMARY | 2024-12-18 10:52 | XMS_ITS | Encounter Summary ---
Author Organization [facility] Address [address] [place] [address] Phone Care Team Providers Care Preservationist Name Role Phone Joe Delaney MD Primary Care Provider [phone] Twan Davis MD Unavailable [phone] Wan Rodríguez Unavailable [phone] Rozina Petersen MD Unavailable Encounter Details Date Type Department Care Team Description 04/15/2017 Conversion Endocrinology [address] [place] [address] Jayjay Allred MD [address] [place], [place] [phone] Social History Tobacco Use Types Packs/Day Years Used Date Smoking Tobacco: Never Assessed Sex Assigned at Date Recorded Male 03/28/2020 2:09 AM E DT Job Start Date Occupation Industry Not on file Not on file Not on file documented as of this encounter Plan of Treatment Upcoming Encounters Date Type Specialty Care Team Description 01/25/2025 Office Visit Internal Medicine Joe Delaney MD [address] [place] [address] 02/03/2025 Office Visit Pain Medicine Patricia Sotelo PA [address] [place] [address] documented as of this encounter Procedures Procedure Name Priority Date/Time Associated Diagnosis Comments THYROID PEROXIDASE ANTIBODY Routine 04/15/2017 10:17 AM EDT THYROID STIMULATING IMMUNOGLOBULIN Routine 04/15/2017 10:17 AM EDT TSH Routine 04/15/2017 10:17 AM EDT T4, FREE Routine 04/15/2017 10:17 AM EDT documented in this encounter Results * Thyroid stimulating immunoglobulin (04/15/2017 10:17 AM EDT) TSI 29 0 - 139 % [facility] 04/15/2017 10:1 7 AM EDT 04/15/2017 10:34 AM EDT Narrative [facility] - 04/18/2017 4:31 PM EDT Testing performed at: [BN] [facility] [address], [address], , Dental Cream Maker: Carter Norton MD Jayjay Allred MD LAB BLOOD ORDERABLES [facility] * Thyroid peroxidase antibody (04/15/2017 10:17 AM EDT) Thyroid Peroxidase Ab 9 0 - 34 IU/mL [facility] 04/15/2017 10:1 7 AM EDT 04/15/2017 10:34 AM EDT Narrative [facility] - 04/16/2017 1:17 AM EDT Testing performed at: [RN] [facility] [place], [address] [place] [address], [phone], , Dental Cream Maker: Lynn Dukes MD Jayjay Allred MD LAB BLOOD ORDERABLES [facility] * TSH (04/15/2017 10:17 AM EDT) TSH 1.57 0.50 - 6.00 uIU/mL [facility] 04/15/2017 10:1 7 AM EDT 04/15/2017 10:34 AM EDT Narrative [facility] - 04/15/2017 1:29 PM EDT Jayjay Allred MD LAB BLOOD ORDERABLES Performing Organization Address [facility] Co de Phone Number [facility] [address] [place], [place] [phone] * T4, free (04/15/2017 10:17 AM EDT) Free T4 1.04 0.75 - 1.54 ng/dL [facility] 04/15/2017 10:1 7 AM EDT 04/15/2017 10:34 AM EDT Narrative [facility] - 04/15/2017 1:29 PM EDT Jayjay Allred MD LAB BLOOD ORDERABLES Performing Organization Address City/[facility] Co de Phone Number AP [facility] [address] [place], [place] [phone] documented in this encounter Visit Diagnoses Not on filedocumented in this encounter Additional Health Concerns Infection Onset Date Last Indicated Resolved Time COVID-19 Rule Out Comment:04/29/2020 Negative (PAT) 02/20/2020 COVID19 NEGATIVE (PAT) 02/23/2020 02/23/2020 02/23/2020 10:42 AM EDT documented as of this encounter Care Teams Preservationist Relationship Specialty Start Date End Date Joe Delaney MD [address] [place] [address] PCP - General Internal Medicine 11/17/18 Twan Davis MD [address] [place] [address] Referring Physician Internal Medicine 11/17/18 Wan Rodríguez [facility] [place] [address] 06/02/19 Rozina Petersen MD Gastroenterology 03/30/20 documented as of this encounter
--- OUTSIDE RECORDS SUMMARY | 2024-12-18 10:52 | XMS_ITS | Encounter Summary ---
Author Organization [facility] Address [address] [place] [address] Phone Care Team Providers Care Shear Operator Automatic Name Role Phone Joe Delaney MD Primary Care Provider [phone] Twan Davis MD Unavailable [phone] Wan Rodríguez Unavailable [phone] Rozina Petersen MD Unavailable Encounter Details Date Type Department Care Team Description 05/31/2021 Email from [facility] [address] [place] [phone] Kimberly Herndon PA [address] [place] [address] Social History Tobacco Use Types Packs/Day [...] have Coronavirus / COVID-19? No / Unsure 05/30/2021 10:22 AM EDT documented as of this encounter Plan of Treatment Upcoming Encounters Date Type Specialty Care Team Description 01/25/2025 Office Visit Internal Medicine Joe Delaney MD [address] [place], [place] [phone] 02/03/2025 Office Visit Pain Medicine Patricia Sotelo PA [address] [place], [place] [phone] documented as of this encounter Visit Diagnoses Not on filedocumented in this encounter Care Teams Shear Operator Automatic Relationship Specialty Start Date End Date Joe Delaney MD [address] [place] [address] PCP - General Internal Medicine 11/17/18 [place] [address] [place] [address] Referring Physician Internal Medicine 11/17/18 Wan Rod[facility]uez [facility] [place] [address] 06/02/19 Rozina Petersen MD Gastroenterology 03/30/20 documented as of this encounter
--- OUTSIDE RECORDS SUMMARY | 2024-12-18 10:52 | XMS_ITS | Encounter Summary ---
Author Organization [facility] Address [address] [place] [address] Phone Care Team Providers Care Transportation Security Officer Name Role Phone Joe Delaney MD Primary Care Provider [phone] Twan Davis MD Unavailable [phone] Wan Rodríguez Unavailable [phone] Rozina Petersen MD Unavailable Encounter Details Date Type Department Care Team Description 03/19/2024 Email from [employer] Internal Medicine [address] [place] [phone] Joe Delaney MD [address] [place] [address] Social History Tobacco Use Types Packs/Day [...] suspected to have Coronavirus/COVID-19? No / Unsure 03/16/2024 3:27 PM EDT documented as of this encounter Plan of Treatment Upcoming Encounters Date Type Specialty Care Team Description 01/25/2025 Office Visit Internal Medicine Joe Delaney MD [address] [place] [address] 02/03/2025 Office Visit Pain Medicine Patricia Sotelo PA [address] [place], [place] [phone] documented as of this encounter Visit Diagnoses Not on filedocumented in this encounter Care Teams Transportation Security Officer Relationship Specialty Start Date End Date Joe Delaney MD [address] [place] [address] PCP - General Internal Medicine 11/17/18 [place] [address] [place] [address] Referring Physician Internal Medicine 11/17/18 Wan Rod[facility]guez [facility] [place] [address] 06/02/19 Rozina Petersen MD Gastroenterology 03/30/20 documented as of this encounter
--- OUTSIDE RECORDS SUMMARY | 2024-12-18 10:52 | XMS_ITS | Encounter Summary ---
Author Organization [facility] Address [address] [place] [address] Phone Care Team Providers Care Vocational Nurse Lvn Name Role Phone Joe Delaney MD Primary Care Provider [phone] Twan Davis MD Unavailable [phone] Wan Rodríguez Unavailable Rozina Petersen MD Unavailable Encounter Details Date Type Department Care Team Description 03/03/2018 Conversion Orthopedics [address] [place] [phone] Eleanor Mcfarland PA [address] [place] [address] Social History Tobacco Use Types Packs/Day Years Used Date Smoking Tobacco: Never Assessed Sex Assigned at Date Recorded Male 03/28/2020 2:09 AM E DT Job Start Date Occupation Industry Not on file Not on file Not on file documented as of this encounter Procedure Notes * CHANDRA Salas - 03/03/2018 12:23 PM EDT Fred is here today for his 4th Cortisone injection in his right knee(s). Using aseptic technique the right knee(s) were [...] joint from the anterolateralapproach. -Band aide placed. -Performed using Ultrasound guidance with pictures taken. -Patient tolerated the procedure well and it was performed without difficulty. Injections PLAN: - patient c/o chronic RCT on the right. He will obtain records from previous ortho seen ? at [facility]. - He would like to try orthoflo injection and schedule in 3-4 weeks if able. We will order and callpatient when available. Billing Diagnosis (choose up to 4) KNEE PAIN, RIGHT (ICD-719.46) ([id number]), PRIMARY LOCALIZED OSTEOARTHRITIS OF RIGHT KNEE (ICD-715.16) ([id number]) Please note, this documentation has been converted into the LeanKit EHR from our [facility] EMR forinformational purposes only. This documentation must not be released or used for legal purposes as the note is missing the responsible provider???s signature. A copy of the legal medical record can be obtained or printed only from the [facility] EMR. Injections Injections Dx for orders: KNEE PAIN; RIGHT ([id number]) Kenalog dosage given: 1 ml Kenalog strength: 40 mg/ml Kenalog wasted: 0 Kenalog given by: Bartolo BUCIO; Funmi Kenalog Medication provided by: [employer] Kenalog Mfr: bristol magaña Kenalog Rte: Intra-articular Kenalog Lot: [id number] Kenalog [facility] number: [id number] Kenalog Exp Date: Kenalog Site: right knee Lidocaine dosage given: 2 ml Lidocaine wasted: 0 Lidocaine given by: Bartolo BUCIO; Funmi Lidocaine Medication provided by: [employer] Lidocaine Mfr: fresenius Lidocaine Rte: Intra-articular Lidocaine Lot: [id number] Lidocaine [facility] number: [id number] Lidocaine Exp Date: Lidocaine Site: right knee Dx for orders: KNEE PAIN; RIGHT ([id number]) Marcaine dosage given: 2 ml Marcaine wasted: 0 Marcaine given by: Bartolo BUCIO; Funmi Marcaine Medication provided by: [employer] [facility] Marcaine Rte: intra-articular Marcaine Lot: [id number] Marcaine [facility] number: [id number] Marcaine Exp Date: Marcaine Site: right knee Clinical Action Note Order Changes - Added new Service order of Kenalog 40 mg ([id number]) - Signed Please note, this documentation has been converted into the Epic EHR from our [facility] EMR forinformational purposes only. This documentation must not be released or used for legal purposes as the note is missing the responsible provider???s signature. A copy of the legal medical record can be obtained or printed only from the [facility] EMR. Called pt and informed him of above per Funmi Mcfarland RPA. Per pt he would like to go with the OrthoFlo injection for 1050.00. Pt is aware that he will have to go to the business office the day ofthe injection to pay. Appt scheduled for 04/23/18 at 11:45am. Pt will come in at 11:00 to go to the business office. Funmi Mcfarland RPA informed of above and she will text rep. Please note, this documentation has been converted into the Epic EHR from our [facility] EMR forinformational purposes only. This documentation must not be released or used for legal purposes as the note is missing the responsible provider???s signature. A copy of the legal medical record can be obtained or printed only from the [facility] EMR. please generate an order for above injection and send to nicolás in pharmacy. Please note, this documentation has been converted into the Epic EHR from our [facility] EMR forinformational purposes only. This documentation must not be released or used for legal purposes as the note is missing the responsible provider???s signature. A copy of the legal medical record can be obtained or printed only from the [facility] EMR. documented in this encounter Plan of Treatment Upcoming Encounters Date Type Specialty Care Team Description 01/25/2025 Office Visit Internal Medicine Joe Delaney MD [address] [place] [address] 02/03/2025 Office Visit Pain Medicine Patricia Sotelo PA [address] [place] [address] documented as of this encounter Visit Diagnoses Not on filedocumented in this encounter Additional Health Concerns Infection Onset Date Last Indicated Resolved Time COVID-19 Rule Out Comment:04/29/2020 Negative (PAT) 02/20/2020 COVID19 NEGATIVE (PAT) 02/23/2020 02/23/2020 02/23/2020 10:42 AM EDT documented as of this encounter Care Teams Vocational Nurse Lvn Relationship Specialty Start Date End Date Joe Delaney MD [address] [place], [place] [phone] PCP - General Internal Medicine 11/17/18 [place] [address] [place] [phone] Referring Physician Internal Medicine 11/17/18 Wan Rodríguez [facility] [place] [address] 06/02/19 Rozina Petersen MD Gastroenterology 03/30/20 documented as of this encounter
--- OUTSIDE RECORDS SUMMARY | 2024-12-18 10:52 | XMS_ITS | Encounter Summary ---
Author Organization [facility] Address [address] [place] [address] Phone Care Team Providers Care Clinical Staff Educator Name Role Phone Joe Delaney MD Primary Care Provider Twan Davis MD Unavailable [phone] Wan Rodríguez Unavailable [phone] Rozina Petersen MD Unavailable Encounter Details Date Type Department Care Team Description 09/19/2017 Conversion Internal Medicine [address] [place] [phone] Joe Delaney MD [address] [place], [place] [id number] Social History Tobacco Use Types Packs/Day Years Used Date Smoking Tobacco: Never Assessed Sex Assigned at Date Recorded Male 03/28/2020 2:09 AM E DT Job Start Date Occupation Industry Not on file Not on file Not on file documented as of this encounter Plan of Treatment Upcoming Encounters Date Type Specialty Care Team Description 01/25/2025 Office Visit Internal Medicine Joe Delaney MD [address] [place], [place] [phone] 02/03/2025 Office Visit Pain Medicine Patricia Sotelo PA [address] [place] [address] documented as of this encounter Procedures Procedure Name Priority Date/Time Associated Diagnosis Comments INFLUENZA B (CULTURE IF NEGATIVE) STAT 09/19/2017 5:44 PM EST INFLUENZA A AND B BY PCR STAT 09/19/2017 5:44 PM EST RAPID VIRAL CULTURE STAT 09/19/2017 5 :44 PM EST documented in this encounter Results * (ABNORMAL) Rapid Viral Culture (09/19/2017 5:44 PM EST) Influenza A Positive(A) Negative [facility] Comment:. Adenovirus IgG Negative Negative [facility] Influenza B Negative Negative [facility] Parainfluenza 1 CF Negative Negative [facility] Parainfluenza 2 CF Negative Negative [facility] Parainfluenza 3 CF Negative Negative [facility] Respiratory Syncytial Virus Negative Negative [facility] 09/19/2017 5:44 PM EST 09/19/2017 5:44 PM EST Narrative [facility] - 09/22/2017 5:10 PM EST Testing performed at: [] [facility], [phone], , [employer] Members[employer] Advisors: Carter Norton MD Joe Delaney MD MICROBIOLOGY - GENER AL ORDERABLES Performing Organization Address City/[facility] Co de Phone Number [facility] * INFLUENZA A (CULTURE IF NEGATIVE) (09/19/2017 5:44 PM EST) Influenza A Negative Negative [facility] Comment:A negative test resu lt may occur if the level of antigen in a sample is below the detection limit of the test. A positive result does not rule out co- infections with other pathogens or identify any specific influenza A virus subtype. 09/19/2017 5:44 PM EST 09/19/2017 5:44 PM EST Narrative [facility] - 09/19/2017 6:07 PM EST Joe Delaney MD MICROBIOLOGY - GENER AL ORDERABLES [facility] [address] [place], [place] [phone] * INFLUENZA B (CULTURE IF NEGATIVE) (09/19/2017 5:44 PM EST) Influenza B Negative Negative [facility] Comment:A negative test reul t may occur if the level of antigen in a sample is below the detection limit of the test. A positive result does not rule out co- infections with other pathogens or identify any specific influenza B virus subtype. 09/19/2017 5:44 PM EST 09/19/2017 5:44 PM EST Narrative [facility] - 09/19/2017 6:07 PM EST Joe Delaney MD MICROBIOLOGY - GENER AL ORDERABLES [facility] [address] [place], [place] [phone] documented in this encounter Visit Diagnoses Not on filedocumented in this encounter Additional Health Concerns Infection Onset Date Last Indicated Resolved Time COVID-19 Rule Out Comment:04/29/2020 Negative (PAT) 02/20/2020 COVID19 NEGATIVE (PAT) 02/23/2020 02/23/2020 02/23/2020 10:42 AM EDT documented as of this encounter Care Teams Clinical Staff Educator Relationship Specialty Start Date End Date Joe Delaney MD [address] [place] [address] PCP - General Internal Medicine 11/17/18 [place] [address] [place] [address] Referring Physician Internal Medicine 11/17/18 Wan Rod[facility]guez [facility] [place] [address] 06/02/19 Rozina Petersen MD Gastroenterology 03/30/20 documented as of this encounter
--- OUTSIDE RECORDS SUMMARY | 2024-12-18 10:52 | XMS_ITS | Encounter Summary ---
Author Organization [facility] Address [address] [place] [address] Phone Care Team Providers Care School Teacher Name Role Phone Joe Delaney MD Primary Care Provider Twan Davis MD Unavailable [phone] Wan Rodríguez Unavailable [phone] Rozina Petersen MD Unavailable Encounter Details Date Type Department Care Team Description 12/05/2017 Conversion Orthopedics [address] [place] [phone] Eleanor Mcfarland PA [address] [place] [address] Social History Tobacco Use Types Packs/Day Years Used Date Smoking Tobacco: Never Assessed Sex Assigned at Date Recorded Male 03/28/2020 2:09 AM E DT Job Start Date Occupation Industry Not on file Not on file Not on file documented as of this encounter Progress Notes * CHANDRA Salas - 12/05/2017 11:27 AM EDT Orthopaedics Office Visit PCP: GOODMAN TIWARI,JOE Ortiz Fred is a 67 Years Old male. He presents today for a follow-up on right knee pain . Since the lastvisit on 10.03.17 patient notes that condition of right knee remains the same. Cortisone injection administered at last office visit lasted 1 MOS. Patient notes increased activity, along with swelling,but has been icing and elevating as needed with effect.. He has not tried physical therapy. He states that the pain is about a 6 out of 10. The activites that make the pain worse are walking, standing, stairs, and getting up from chair. He has not tried any medications for pain relief. He does not have other mucsuloskeletal problems. Pain Scale: 6 Pain relief medications: nonePlan: . Past Medical History from 09/19/2017 reviewed - no changes required: Thyroid nodules, Htn. Elev PSA. , A-fib. , Gerd. Allergic rhinitis. BPH. Past Surgical History from 02/19/2017 reviewed - no changes required: Tonsillectomy, childhood; , Dental implants. , Prost bx. Family History from 07/08/2014 reviewed - no changes required: Mother age 88, kidney cancer, hysterectomy, breast cancer, cancerous colon polyp. , Father is , at age 83, [place] suspected. Had high PSA but not Ca. , 1 brother is alive and well., 1 sister is alive and well. Medications: (priorto this update) LOSARTAN POTASSIUM 100 MG ORAL TABLET (LOSARTAN POTASSIUM) one po qd XARELTO 20 MG ORAL TABLET (RIVAROXABAN) one po qd PROPRANOLOL HCL TABLET (PROPRANOLOL HCL TABS) as needed when in Afib TAMIFLU 75 MG ORAL CAPSULE (OSELTAMIVIR PHOSPHATE) one capsule by mouth bid BIAXIN 500 MG ORAL TABLET (CLARITHROMYCIN) one po bid Allergies: PCN (Moderate) AMLODIPINE BESYLATE (AMLODIPINE BESYLATE) (Moderate) PENICILLIN (Moderate) Social history Smoking: never smoker ETOH: social Drug use: never Employment: working Occupation: [employer] Work related injury? no Comp Case: no [...] list verified - done Vital Signs: Weight: 220 Height: 74in. BMI (in-lb) 28.35 Fred is a 67 Years Old pleasant male. He is AOx3, [...] mild Joint Line (Lateral): mild Patellafemoral (Medial): Patellafemoral (Lateral): moderate Effusion: absent Active ROM Left Right Degrees: 0-120+ Pain: no Crepitation: yes Special Tests: Left Right Angelo: neg Cardiovascular: Posterior Tibial pulses are 2+ on the right. Edema is absent on the right. Neuro: Sensation is grossly intact on the right . Assessment of Studies X-Ray: Ordered, Films Reviewed: 03/27/17 - Right Knee - moderate DJD most significantly involving the PF joint and medial joint space narrowing Assessed PRIMARY LOCALIZED OSTEOARTHRITIS OF RIGHT KNEE as unchanged - Funmi Mcfarland [facility] - Signed New Problems: KNEE PAIN, RIGHT (ICD-719.46) ([id number]) -- Plan: - Patient is only 2 months s/p cortisone with only 1month relief. - Due to increased pain and inability to take NSAIDS due to anticoagulation with Xarelto for underlying A. Fib, I discussed possible TORADOL injection as an option. He opted for this today. - We will obtain authorization for GEL ONE injection to have as an option for next OV. - He will continue to make modifications to exercises routines to avoid increased pain. Running hasbeen aggravating for him which I did agree is not an ideal form of exercise with underling knee OA.I have suggested biking/elliptical, etc. - Follow up in 1 month. - Patient instructed to call with any questions or concerns. Medications List Changes: Removed medication of BIAXIN 500 MG ORAL TABLET - Reason: Other Removed medication of TAMIFLU 75 MG ORAL CAPSULE - Reason:Other New Orders: SNOMED-CT: [id number] Patient Encounter for Meaningful Use [[id number]] in his right knee(s) Using aseptic technique the right Right Knee Toradol Injection: -Discussed risks/benefits and obtained verbal consent. - After sterile prepping of the right knee with alcohol, using a 21 gauge needle, 2 cc of Marcaine,2cc of Lidocaine, and 1 cc of Toradol was injected into the right knee joint from the superolateralapproach. -Band aide placed. -Performed using Ultrasound guidance with pictures taken. -Patient tolerated the procedure well and it was performed without difficulty. Injections ] Please note, this documentation has been converted into the Epic EHR from our [employer] EMR forinformational purposes only. This documentation must not be released or used for legal purposes as the note is missing the responsible provider???s signature. A copy of the legal medical record can be obtained or printed only from the [employer] EMR. Injections Injections Dx for orders: KNEE PAIN; RIGHT ([id number]) Dx for orders: PRIMARY LOCALIZED OSTEOARTHRITIS OF RIGHT KNEE ([id number]) Ketorolac dosage given: 30 mg/ ml Ketorolac wasted: 0 Ketorolac given by: Bartolo BUCIO; Funmi Medication provided by: [employer] Ketorolac Mfr: hospira Ketorolac Rte: intra-articular Ketorolac Lot: [id number] Ketorolac [place] number: [id number] Ketorolac Exp Date: Lidocaine dosage given: 2 ml Lidocaine wasted: 0 Lidocaine given by: Bartolo BUCIO; Funmi Lidocaine Medication provided by: [employer] Lidocaine Mfr: Hospira Lidocaine Rte: Intra-articular Lidocaine Lot: [id number] Lidocaine ND number: [id number] Lidocaine Exp Date: Lidocaine Site: right knee Dx for orders: KNEE PAIN; RIGHT ([id number]) Marcaine dosage given: 2 ml Marcaine wasted: 0 Marcaine given by: Bartolo BUCIO; Funmi Marcaine Medication provided by: [employer] Marcaine Mfr: fresenius Marcaine Rte: intra-articular Marcaine Lot: [id number] Marcaine NDC number: [id number] Marcaine Exp Date: Marcaine Site: right knee Clinical Action Note Please note, this documentation has been converted into the [employer] EHR from our [employer] EMR forinformational purposes only. This documentation must not be released or used for legal purposes as the note is missing the responsible provider???s signature. A copy of the legal medical record can be obtained or printed only from the [employer] EMR. documented in this encounter Plan of Treatment Upcoming Encounters Date Type Specialty Care Team Description 01/25/2025 Office Visit Internal Medicine Joe Delaney MD [address] [place], [place] [phone] 02/03/2025 Office Visit Pain Medicine Patricia Sotelo PA [address] [place] [address] documented as of this encounter Visit Diagnoses Not on filedocumented in this encounter Additional Health Concerns Infection Onset Date Last Indicated Resolved Time COVID-19 Rule Out Comment:04/29/2020 Negative (PAT) 02/20/2020 COVID19 NEGATIVE (PAT) 02/23/2020 02/23/2020 02/23/2020 10:42 AM EDT documented as of this encounter Care Teams School Teacher Relationship Specialty Start Date End Date Joe Delaney MD [address] [place] [address] PCP - General Internal Medicine 11/17/18 [place] [address] [place] [phone] Referring Physician Internal Medicine 11/17/18 Wan Rodríguez [facility] [address] 06/02/19 Rozina Petersen MD Gastroenterology 03/30/20 documented as of this encounter
--- OUTSIDE RECORDS SUMMARY | 2024-12-18 10:52 | XMS_ITS | Encounter Summary ---
Author Organization [facility] Address [address] [place] [address] Phone Care Team Providers Care Event Crew Technician Name Role Phone Joe Delaney MD Primary Care Provider [phone] Twan Davis MD Unavailable [phone] Wan Rodríguez Unavailable [phone] Rozina Petersen MD Unavailable Encounter Details Date Type Department Care Team Description 07/03/2017 Conversion Orthopedics [address] [place] [phone] Eleanor Mcfarland PA [address] [place] [address] Social History Tobacco Use Types Packs/Day Years Used Date Smoking Tobacco: Never Assessed Sex Assigned at Date Recorded Male 03/28/2020 2:09 AM E DT Job Start Date Occupation Industry Not on file Not on file Not on file documented as of this encounter Progress Notes * CHANDRA Salas - 07/03/2017 9:03 AM EST Supervising Physician: Gama Etienne MD Orthopaedics Office Visit PCP: GOODMAN TIWARI,JOE Ortiz Fred is a 67 Years Old male. He presents today for a follow-up on right knee pain. Since the last visit Patient states he has noted some swelling the past couple days in his right knee. Patient states he has pain in his left groin that radiates down his thigh to his knee when he stretches his leftleg.. He was not prescribed any medications at the last visit. 8.23.17 cortisone He states that theinjections lasted 3 months. He has not tried physical therapy. He states that the pain is about a 5out of 10. The activites that make the pain worse are walking, standing, stairs, getting up from chair, and sleeping. He has not tried any medications for pain relief. He has other mucsuloskeletal problems including left hip and thigh pain for past month. improving with home stretches.. Pain Scale: 5 Pain relief medications: nonePlan: . Past Medical History from 02/19/2017 reviewed - no changes required: Thyroid nodules, Htn. Elev PSA. , A-fib. , Gerd. Allergic rhinitis. BPH. Past Surgical History from 02/19/2017 reviewed - no changes required: Tonsillectomy, childhood; , Dental implants. , Prost bx. Family History from 07/08/2014 reviewed - no changes required: Mother age 88,kidney cancer, hysterectomy, breast cancer, cancerous colon polyp. , Father is , at age 83, AL suspected. Had high PSA but not Ca. , 1 brother is alive and well., 1 sister is alive and well. 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 no Comp Case: [...] list verified - done Vital Signs: Weight: 224 Height: 74in. BMI (in-lb) 28.86 Fred is a 67 Years Old pleasant [...] swelling is noted. No eccymosis is noted. Hip: Internal Rotation: Left:decreased External Rotation: Left: decreased Pain: groin Left Right Stinchfield test: positive Knee Exam: Tenderness: Left Right Joint Line [...] the right . Assessment of Studies X-Ray: Films Reviewed, Report Reviewed: 03/27/17 - Right Knee - moderate DJD most significantly involving the PF joint and medial joint space narrowing Assessed KNEE PAIN, RIGHT as improved - Funmi BUCIO - Signed Assessed PRIMARY LOCALIZED OSTEOARTHRITIS OF RIGHT KNEE as unchanged - Funmi BUCIO - Signed New Problems: HIP PAIN, LEFT (ICD-719.45) (XNU00-X81.552) -- Plan: - Discussed option of repeat cortisone injection Right Knee along with risks and benefits. Patient elected to proceed today. - Monitor left hip pain for now, continue stretching. Possible xrays left hip next OV for persistent pain. - He is unable to take NSAIDS due to Xarelto for A. Fib. - Follow up in 3 months. - Patient instructed to callwith any questions or concerns. Medications List Changes: Removed medication of FLECAINIDE ACETATE 50 MG ORAL TABLET - Reason: Regimen completed Added new medication of PROPRANOLOL HCL TABLET - as needed when in Afib New Orders: SNOMED-CT: [id number] Patient Encounter for Meaningful Use [[id number]] Fred was given his 2nd Cortisone injection in his right knee(s). Using [...] the right knee joint from the medial approach. -Band aide placed. -Performed using Ultrasound guidance with pictures taken. -Patient tolerated the procedure well and it was performed without difficulty. Injections ] Please note, this documentation has been converted into the [employer] EHR from our [employer] EMR forinformational purposes only. This documentation must not be released or used for legal purposes as the note is missing the responsible provider???s signature. A copy of the legal medical record can be obtained or printed only from the [employer] EMR. Injections Injections Dx for orders: KNEE PAIN; RIGHT ([id number]) Dx for orders: PRIMARY LOCALIZED OSTEOARTHRITIS OF RIGHT KNEE ([id number]) Kenalog dosage given: 1ml Kenalog strength: 40mg Kenalog wasted: 0 Kenalog given by: Funmi Armenta Kenalog Time given: 930 Kenalog Medication provided by: floor-stock Kenalog Mfr: bristol magaña Kenalog Rte: Intra-articular Kenalog Lot: [id number] Kenalog [facility] number: [id number] Kenalog Exp Date: 10/2018 Kenalog Site: right knee Lidocaine dosage given: 2ml Lidocaine wasted: 0 Lidocaine given by: Funmi Armenta Lidocaine Time given: 930 Lidocaine Medication provided by: floor-stock Lidocaine Mfr: Hospira Lidocaine Rte: Intra-articular Lidocaine Lot: [id number] Lidocaine NDC number: [id number] Lidocaine Exp Date: 08/2018 Lidocaine Site: right knee Marcaine dosage given: 2ml Marcaine wasted: 0 Marcaine given by: Funmi Armenta Marcaine Time given: 930 Marcaine Medication provided by: floor-stock Marcaine Mfr: Hospira Marcaine Rte: intra-articular Marcaine Lot: [id number] Marcaine NDC number: [id number] Marcaine Exp Date: 09/2018 Marcaine Site: right knee Order Changes - Added new Service order of Kenalog 40 mg ([id number]) - Signed Please note, this documentation has been converted into the [employer] EHR from our [employer] EMR forinformational purposes only. This documentation must not be released or used for legal purposes as the note is missing the responsible provider???s signature. A copy of the legal medical record can be obtained or printed only from the [employer] EMR. documented in this encounter Plan of Treatment Upcoming Encounters Date Type Specialty Care Team Description 01/25/2025 Office Visit Internal Medicine Joe Delaney MD [address] [place], [place] [id number] 02/03/2025 Office Visit Pain Medicine Patricia Sotelo PA [address] [place] [address] documented as of this encounter Visit Diagnoses Not on filedocumented in this encounter Additional Health Concerns Infection Onset Date Last Indicated Resolved Time COVID-19 Rule Out Comment:04/29/2020 Negative (PAT) 02/20/2020 COVID19 NEGATIVE (PAT) 02/23/2020 02/23/2020 02/23/2020 10:42 AM EDT documented as of this encounter Care Teams Event Crew Technician Relationship Specialty Start Date End Date Joe Delaney MD [address] [place], [place] [id number] PCP - General Internal Medicine 11/17/18 [place] [address] [place] [address] Referring Physician Internal Medicine 11/17/18 Wan Rodríguez [facility] [place] [address] 06/02/19 Rozina Petersen MD Gastroenterology 03/30/20 documented as of this encounter
--- OUTSIDE RECORDS SUMMARY | 2024-12-18 10:52 | XMS_ITS | Encounter Summary ---
Author Organization [facility] Address [address] [place] [address] Phone Care Team Providers Care Illuminator Name Role Phone Joe Delaney MD Primary Care Provider Twan Davis MD Unavailable [phone] Wan Rodríguez Unavailable Rozina Petersen MD Unavailable Encounter Details Date Type Department Care Team Description 08/12/2017 Conversion Internal Medicine [address] [place] [address] Joe Delaney MD [address] [place], [place] [phone] Social History Tobacco Use Types Packs/Day Years Used Date Smoking Tobacco: Never Assessed Sex Assigned at Date Recorded Male 03/28/2020 2:09 AM E DT Job Start Date Occupation Industry Not on file Not on file Not on file documented as of this encounter Plan of Treatment Upcoming Encounters Date Type Specialty Care Team Description 01/25/2025 Office Visit Internal Medicine Joe Delaney MD [address] [place], [place] [phone] 02/03/2025 Office Visit Pain Medicine Patricia Sotelo PA [address] [place] [address] documented as of this encounter Procedures Procedure Name Priority Date/Time Associated Diagnosis Comments IRON PANEL (FE+TIBC+EVERETT) Routine 08/12/2017 1:02 PM EST CBC Routine 08/12/2017 1:02 PM EST COMPREHENSIVE METABOLIC PANEL Routine 08/12/2017 1:02 PM EST documented in this encounter Results * (ABNORMAL) CBC (08/12/2017 1:02 PM EST) WBC 8.2 4.8 - 10.8 10*3/mm3 [facility] RBC 5.4 4.7 - 6.1 10*6/mm3 [facility] Hemoglobin 16.1 14.0 - 18.0 g/dL [facility] Hematocrit 45.9 42.0 - 52.0 % [facility] MCV 85.20 80.00 - 94.0 fL [facility] MCH 29.9 26.0 - 34.0 pg [facility] MCHC 35.1 32.0 - 36.0 G/DL [facility] RDW 12.9 9.1 - 17.5 % [facility] Platelets 270 130 - 400 10*3/mm3 [facility] MPV 10.3 6.4 - 13.3 fL [facility] Neutrophils % 67.20 42.20 - 75.2 % [facility] Neutrophils Absolute 5.51 1.40 - 6.50 10*3/mm3 [facility] Lymphocytes Relative 23.40 20.50 - 51.1 % [facility] Lymphocytes Absolute 1.92 1.20 - 3.40 10*3/mm3 [facility] Monocytes Relative 8.30 1.70 - 9.30 % [facility] Monocytes Absolute 0.68(H) 0.10 - 0.50 10*3/mm3 [facility] Eosinophils Relative 0.90 0.00 - 10.00 % [facility] Eosinophils Man 0.07 0.00 - 0.70 10*3/mm3 [facility] Basophils Relative 0.20 0.00 - 2.00 % [facility] Basophils Absolute 0.02 0.00 - 0.30 10*3/mm3 [facility] 08/12/2017 1:02 PM EST 08/12/2017 1:05 PM EST Narrative [facility] - 08/12/2017 1:56 PM EST Joe Delaney MD LAB BLOOD ORDERABLES FREQUENCY Performing Organization Address [facility] Co de Phone Number AP DIAZ [address] [place], [place] [phone] * Iron Panel (08/12/2017 1:02 PM EST) UIBC 294 155 - 355 ug/dl [facility] Iron 109 50 - 212 ug/dL [facility] Iron Saturation 27.0 24.0 - 37.0 % [facility] 08/12/2017 1:02 PM EST 08/12/2017 1:05 PM EST Narrative [facility] - 08/12/2017 1:47 PM EST Joe Delaney MD LAB BLOOD ORDERABLES Performing Organization Address [facility] Co de Phone Number AP DIAZ [address] [place], [place] [phone] * (ABNORMAL) Comprehensive metabolic panel (08/12/2017 1:02 PM EST) GLUCOSE 83 70 - 105 mg/dL [facility] Urea nitrogen 12 7 - 25 mg/dL [facility] Creatinine 0.9 0.6 - 1.3 mg/dL [facility] Calcium 9.9 8.6 - 10.3 mg/dL [facility] Total Protein 6.8 6.4 - 8.9 g/dL [facility] Albumin 4.5 3.5 - 5.7 g/dL [facility] Bilirubin, Total 0.49 0.30 - 1.00 mg/dL [facility] Alk Phos, Total 64 34 - 104 U/L [facility] AST 19 15 - 39 U/L [facility] Sodium 140 136 - 145 mmol/L [facility] Potassium 4.1 3.5 - 5.1 mmol/L [facility] Chloride 100 98 - 107 mmol/L [facility] CO2 29.9 21.0 - 31.0 mmol/L [facility] ALT 30 7 - 52 U/L [facility] Anion Gap 14 5 - 19 [facility] BUN/Creatinine Ratio 12.9 6.0 - 20.0 [facility] GFR > 60 >60 ml/min/1.7 3mGF [facility] Comment:If patient is Radha n Dutch multiply result by 1.212 Alb/Glob ratio 1.9(H) 1.2 - 1.8 [facility] Globulin 2.3 1.6 - 3.9 g/dL [facility] 08/12/2017 1:02 PM EST 08/12/2017 1:05 PM EST Narrative [facility] - 08/12/2017 1:47 PM EST Joe Delaney MD LAB BLOOD ORDERABLES AP DIAZ [address] [place], [place] [phone] documented in this encounter Visit Diagnoses Not on filedocumented in this encounter Additional Health Concerns Infection Onset Date Last Indicated Resolved Time COVID-19 Rule Out Comment:04/29/2020 Negative (PAT) 02/20/2020 COVID19 NEGATIVE (PAT) 02/23/2020 02/23/2020 02/23/2020 10:42 AM EDT documented as of this encounter Care Teams Illuminator Relationship Specialty Start Date End Date Joe Delaney MD [address] [place] [address] PCP - General Internal Medicine 11/17/18 Twan Davis MD [address] [place] [address] Referring Physician Internal Medicine 11/17/18 Wan Rodríguez [facility] [place] [address] 06/02/19 Rozina Petersen MD Gastroenterology 03/30/20 documented as of this encounter
--- OUTSIDE RECORDS SUMMARY | 2024-12-18 10:52 | XMS_ITS | Encounter Summary ---
Author Organization [facility] Address [address] [place] [address] Phone Care Team Providers Care Environmental Sciences Professor Name Role Phone Joe Delaney MD Primary Care Provider [phone] Twan Davis MD Unavailable [phone] Wan Rodríguez Unavailable [phone] Rozina Petersen MD Unavailable Encounter Details Date Type Department Care Team Description 05/29/2024 Email from [facility] Internal Medicine [address] [place] [phone] Joe Delaney MD [address] [place] [address] [phone] Social History Tobacco Use Types Packs/Day Years [...] Visit Internal Medicine Joe Delaney MD [address] [place], [place] [phone] 02/03/2025 Office Visit Pain Medicine Patricia Sotelo PA [address] [place], [place] [phone] documented as of this encounter Visit Diagnoses Not on filedocumented in this encounter Care Teams Environmental Sciences Professor Relationship Specialty Start Date End Date Joe Delaney MD [address] [place], [place] [phone] PCP - General Internal Medicine 11/17/18 Twan Davis MD [address] [place] [address] Referring Physician Internal Medicine 11/17/18 Wan Rod[facility]uez [facility] [place] [address] 06/02/19 Rozina Petersen MD Gastroenterology 03/30/20 documented as of this encounter
--- OUTSIDE RECORDS SUMMARY | 2024-12-18 10:52 | XMS_ITS | Encounter Summary ---
Author Organization [facility] Address [address] [place] [address] Phone Care Team Providers Care Cardiovascular Or Nurse Name Role Phone Joe Delaney MD Primary Care Provider [phone] Twan Davis MD Unavailable [phone] Wan Rodríguez Unavailable [phone] Rozina Petersen MD Unavailable Encounter Details Date Type Department Care Team Description 01/08/2018 Conversion Orthopedics [address] [place] [phone] Eleanor Mcfarland PA [address] [place] [address] Social History Tobacco Use Types Packs/Day Years Used Date Smoking Tobacco: Never Assessed Sex Assigned at Date Recorded Male 03/28/2020 2:09 AM E DT Job Start Date Occupation Industry Not on file Not on file Not on file documented as of this encounter Procedure Notes * CHANDRA Salas - 01/08/2018 10:32 AM EDT Gel One injection given in his right knee(s) Using aseptic technique the right If he has any questions or concerns before that time he will not hesitate to contact us. Right Knee GEL-One Injection: -Discussed risks/benefits and obtained verbal consent. - After sterile prepping of the right knee with alcohol, using a 21 gauge needle, the pre-drawn 3 cc Gel One was injected into the right knee joint from the anterolateral approach. -Band aide placed. -Performed using Ultrasound guidance with pictures taken. -Patient tolerated the procedure well and it was performed without difficulty. Injections PLAN: Follow up in 4-6 weeks if needed for persistent pain which we can consider repeat cortisone injection. Pennsaid samples given to use as needed. Will call for Rx if needed. Follow up in 6 monthsfor repeat gel one injection if todays provides good relief. Billing Diagnosis (choose up to 4) KNEE PAIN, RIGHT (ICD-719.46) ([id number]), PRIMARY LOCALIZED OSTEOARTHRITIS OF RIGHT KNEE (ICD-715.16) (OGE31-C91.11) Please note, this documentation has been converted into the [employer] EHR from our [employer] EMR forinformational purposes only. This documentation must not be released or used for legal purposes as the note is missing the responsible provider???s signature. A copy of the legal medical record can be obtained or printed only from the [employer] EMR. Injections Dx for orders: PRIMARY LOCALIZED OSTEOARTHRITIS OF RIGHT KNEE ([id number]) Other Medication: Gel-One Done Dosage given: 3mL Amount wasted: 0 Injection given by: CHANDRA Irizarry Medication provided by: floor-stock Medication Mfr: Kaylee Injection Rte: intra-articular Medication Lot: [id number] [facility] number: [id number] Exp Date: 10.09.2018 Site: right knee Please note, this documentation has been converted into the [employer] EHR from our [employer] EMR forinformational purposes only. This documentation must not be released or used for legal purposes as the note is missing the responsible provider???s signature. A copy of the legal medical record can be obtained or printed only from the [employer] EMR. documented in this encounter Plan of Treatment Upcoming Encounters Date Type Specialty Care Team Description 01/25/2025 Office Visit Internal Medicine Joe Delaney MD [facility] [place] [address] 02/03/2025 Office Visit Pain Medicine Patricia Sotelo PA [facility] [place] [address] documented as of this encounter Visit Diagnoses Not on filedocumented in this encounter Additional Health Concerns Infection Onset Date Last Indicated Resolved Time COVID-19 Rule Out Comment:04/29/2020 Negative (PAT) 02/20/2020 COVID19 NEGATIVE (PAT) 02/23/2020 02/23/2020 02/23/2020 10:42 AM EDT documented as of this encounter Care Teams Cardiovascular Or Nurse Relationship Specialty Start Date End Date Joe Delaney MD [address] [place], [place] [id number] PCP - General Internal Medicine 11/17/18 Twan Davis MD [address] [place] [address] Referring Physician Internal Medicine 11/17/18 Wan Rod[facility]guez [facility] [place] [id number] 06/02/19 Rozina Petersen MD Gastroenterology 03/30/20 documented as of this encounter
--- OUTSIDE RECORDS SUMMARY | 2024-12-18 10:52 | XMS_ITS | Encounter Summary ---
Author Organization [facility] Address [address] [place] [address] Phone Care Team Providers Care Rollway Man Name Role Phone Joe Delaney MD Primary Care Provider [phone] Twan Davis MD Unavailable [phone] Wan Rodríguez Unavailable Rozina Petersen MD Unavailable Encounter Details Date Type Department Care Team Description 04/30/2017 Conversion Internal Medicine [address] [place] [address] Joe Delaney MD [address] [place], [place] [phone] Social History Tobacco Use Types Packs/Day Years Used Date Smoking Tobacco: Never Assessed Sex Assigned at Date Recorded Male 03/28/2020 2:09 AM E DT Job Start Date Occupation Industry Not on file Not on file Not on file documented as of this encounter Plan of Treatment Upcoming Encounters Date Type Specialty Care Team Description 01/25/2025 Office Visit Internal Medicine Joe Delaney MD [address] [place], [place] [phone] 02/03/2025 Office Visit Pain Medicine Patricia Sotelo PA [address] [place] [address] documented as of this encounter Procedures Procedure Name Priority Date/Time Associated Diagnosis Comments PSA, TOTAL AND FREE Routine 04/30/2017 1 1:55 AM EDT documented in this encounter Results * (ABNORMAL) PSA, total and free (04/30/2017 11:55 AM EDT) PSA 4.7(H) 0.0 - 4.0 ng/mL [facility] Comment: [employer] ECLIA methodology. According to the [employer], Serum PSA should decrease and [...] or absence of malignant disease. PSA, Free 0.86 N/A ng/mL [facility] Comment:Ailyn ECLIA methodol ogy. PSA, Free Pct 18.3 % [facility] Comment: The table below lists [...] PSA for any other population ?of men. 04/30/2017 11:5 5 AM EDT 04/30/2017 12:13 PM EDT Narrative [facility] - 05/01/2017 4:15 AM EDT Testing performed at: [RN] [facility], [address] [place] [address], [phone], , Hospice Clinical Supervisor: Lynn Dukes MD Joe Delaney MD LAB BLOOD ORDERABLES [facility] documented in this encounter Visit Diagnoses Not on filedocumented in this encounter Additional Health Concerns Infection Onset Date Last Indicated Resolved Time COVID-19 Rule Out Comment:04/29/2020 Negative (PAT) 02/20/2020 COVID19 NEGATIVE (PAT) 02/23/2020 02/23/2020 02/23/2020 10:42 AM EDT documented as of this encounter Care Teams Rollway Man Relationship Specialty Start Date End Date Joe Delaney MD [facility] [place] [address] PCP - General Internal Medicine 11/17/18 [place] [address] [place] [address] Referring Physician Internal Medicine 11/17/18 Wan Rodríguezwell [facility] [place] [address] 06/02/19 Rozina Petersen MD Gastroenterology 03/30/20 documented as of this encounter
--- OUTSIDE RECORDS SUMMARY | 2024-12-18 10:52 | XMS_ITS | Encounter Summary ---
Author Organization [facility] Address [address] [place] [address] Phone Care Team Providers Care Station Engineer Chief Name Role Phone Joe Delaney MD Primary Care Provider [phone] Twan Davis MD Unavailable [phone] Wan Rodríguez Unavailable [phone] Rozina Petersen MD Unavailable Encounter Details Date Type Department Care Team Description 05/01/2021 Email from [facility] Internal Medicine [address] [place] [phone] Joe Delaney MD [address] [place] [address] Social History Tobacco Use Types Packs/Day [...] have Coronavirus / COVID-19? No / Unsure 05/04/2021 7:51 AM EDT documented as of this encounter Plan of Treatment Upcoming Encounters Date Type Specialty Care Team Description 01/25/2025 Office Visit Internal Medicine Joe Delaney MD [address] [place] [address] 02/03/2025 Office Visit Pain Medicine Patricia Sotelo PA [address] [place], [place] [phone] documented as of this encounter Visit Diagnoses Not on filedocumented in this encounter Care Teams Station Engineer Chief Relationship Specialty Start Date End Date Joe Delaney MD [address] [place] [address] PCP - General Internal Medicine 11/17/18 [place] [address] [place] [address] Referring Physician Internal Medicine 11/17/18 Wan Rodríguez [facility] [place] [address] 06/02/19 Rozina Petersen MD Gastroenterology 03/30/20 documented as of this encounter
--- OUTSIDE RECORDS SUMMARY | 2024-12-18 10:52 | XMS_ITS | Clinical Summary ---
Author Organization [facility] Address [address] [place] [address] Care Team Providers Care Automation Tender Name Role Phone Joe Delaney MD Primary Care Provider [phone] Allergies Active Allergy Reactions Criticality Noted Date [...] in the morning. Take with food. Active Encounters Date Type Department Care Team Description 10/20/2024 8:26 AM EDT - 10/20/2024 12:18 PM EDT Emergency [facility] [address] [place] [address] Maru Abraham DO Chest pain, unspecified type (Primary Dx); Dizziness Discharge Disposition: Home or Self Care 10/20/2024 Travel from Last 3 Months Social History Tobacco Use Types Packs/Day Years [...] Info) Description 12/21/2024 11:30 AM EDT Appointment [facility] [address] [place] [address] Health Maintenance Due Date Last Done Comments CT Colonography 1950 Cologuard 1950 Colonoscopy 1950 Colorectal Cancer Screening 1950 FOBT Annual 1950 Sigmoidoscopy 1950 Yearly Physical 1950 Hepatitis C Screening 1970 Zoster Vaccines (1 of 2) 2002 RSV Immunization Adult (1 - Risk 60-74 years 1-dose series) 2012 COVID-19 Vaccine (3 - 2023-2 5 season) 2024 10/15/2020, 09/24/2020 Influenza Vaccine (Season Ended) 2025 04/27/2021 DTaP, Tdap and Td Vaccines M in Age 18 02/19/2027 02/19/2017 Pneumococcal Vaccine: 50+ Years Completed 06/02/2019, 05/20/2018 HIB Vaccines Aged Out No longer eligi ble based on patient's age to complete this topic Hepatitis A Vaccines Aged Out No long er eligible based on patient's age to complete this topic IPV Vaccines Aged Out No longer eligi ble based on patient's age to complete this topic RSV Immunization Under 20 Months Of Age Aged Out No longer eligible b ased on patient's age to complete this topic Procedures Procedure Name Priority Date/Time Associated Diagnosis [...] Culture if Indicated (10/20/2024 10:25 AM EDT) Urine Glucose Negative Negative 10/20/2024 10:35 AM EDT [facility] Urine Bilirubin Negative Negative 10:35 AM EDT [facility] Urine Blood Negative Negative 10/20/2024 10:35 AM EDT [facility] Urine Urobilinogen <2.0 <0.2, 0.2, 1.0, <2.0 mg/dL 10/20/2024 10:35 AM EDT [facility] Urine Leukocyte Esterase Negative Negative 10/20/2024 10:35 AM EDT [facility] Urine Nitrite Negative Negative 10/20/2024 10:35 AM EDT [facility] Urine Appearance CLEAR CLEAR 10/21/19 10:35 AM EDT [facility] Urine Color Colorless Light-Yellow , Yellow, Colorless 10/20/2024 10:35 AM EDT [facility] Urine Specific [place] 1.008(L) 1.015 - 1.025 10/20/2024 10:35 AM EDT [facility] Urine pH 7.5(H) 5.0 - 7.0 10/20/2024 10:35 AM EDT [facility] Urine Protein Negative Negative 10/20/2024 10:35 AM EDT [facility] Urine Ketone Negative Negative 10/20/2024 10:35 AM EDT [facility] Sperm 10/20/2024 10:35 AM EDT [facility] Urine (Urine, Voided) 10/20/2024 10:25 AM EDT 10/20/2024 10:29 AM EDT us Maru [employer] GOEL LAB URINE ORDERABLES Final Result [facility] [address] [place] [address] [place] [address], [place] * Extra Urine Culture Tube (10/20/2024 10:25 AM EDT) Urine Urine specimen obtained by clean catch procedure / Unknown 10/20/2024 10:25 AM EDT 10/20/2024 10:29 AM EDT us Maru [employer] GOEL LAB BLOOD ORDERABLES Final Result [facility] * CT head wo IV contrast (10/20/2024 9:50 AM EDT) Anatomical Region Laterality Modality Head Computed Tomogra phy 10/20/2024 9:55 AM EDT Impressions 10/20/2024 9:58 AM EDT Impression: No acute process Electronically Signed by Kodi Sheikh MD 10/20/2024 9:58 AM Narrative 10/20/2024 9:58 AM EDT Patient: DILIP CHASEIVE ?? : 1950 Procedure: CT HEAD WO CONTRAST Provider: MARU ABRAHAM Clinical history: Dizziness, vertigo, worsening over [...] 1950 Procedure: CT HEAD WO CONTRAST Provider: AMRU ABRAHAM Clinical history: Dizziness, vertigo, worsening over [...] Kodi Sheikh MD 10/20/2024 9:58 AM us Maru Abraham DO IMG CT PROCEDURES Final Re sult * X-ray chest 1 view (10/20/2024 9:39 AM EDT) Anatomical Region Laterality Modality Chest, Lung Digital Radiogra phy 10/20/2024 9:41 AM EDT Narrative 10/20/2024 9:42 AM EDT Patient: DILIP SOLANO ?? : 1950 Procedure: XR CHEST 1 VIEW [facility]: [facility] Chest portable single view Clinical History: Dizziness [...] Procedure: XR CHEST 1 VIEW [facility] portable single view Clinical History: Dizziness [...] by Anais Serrano MD 10/20/2024 9:42 AM Maru Abraham DO IMG XR PROCEDURES Final Re sult * POCT whole blood glucose unsolicited results (10/20/2024 9:39 AM EDT) [facility] Glucose, Fingerstick 83 70 - 110 mg/dL 10/20/2024 9:40 AM EDT [facility] Comment:Performed using [employer] StatStrip Glucose Meter Blood Structure of capillary blood vessel / Unknown 10/20/2024 9:39 AM EDT 10/20/2024 9:40 AM EDT us Maru Abraham DO LAB POINT OF CARE TEST DOCKED DEVICE UNSOLICITED RESULTS Final Result [facility] [address] [place] [address] [place] [address], [place] * (ABNORMAL) Prothrombin time INR no therapy or unknown (10/20/2024 9:21 AM EDT) PT, No Coag Tx/Coag Tx Unk 17.2(H) 10.2 - 12.9 sec LAB COAGULATION METHOD 10/20/2024 10:01 AM EDT [facility] Comment: PT reference range reflects values for patients not on anticoagulant therapy. Discrepant results may occur due to anticoagulant effects such as coumadin, direct thrombin inhibitors; argatroban (Acova), bivalirudin (Angiomax) or dabigatran (Pradaxa) or direct factor Xa inhibitors; rivaroxaban (Xarelto), apixaban (Eliquis) and edoxaban (Savaysa). Testing performed on ACL Top 750. INR (No Coag Tx/Coag Tx Unk) 1.5(H) 0.9 - 1.1 LAB COAGULATION METHOD 10/20/2024 10:01 AM EDT [facility] Comment: Suggested therapeutic INR ranges for oral anticoagulant therapy Prevention and treatment of DVT and PE ??= 2.0 - 3.0 ?? Prevention of systemic embolism with atrial fib.,acute RI and tissue prosthetic heart valves. = 2.0 - 3.0 ?Prevention of systemic embolism in patients with mechanical heart valves = 2.5-3.5 ? NOTE: The INR is only valid for patients on stable oral anticoagulant therapy Testing performed on ACL Top 750. ? Blood (Venous, Plasma) Venipuncture / Unknown 10/20/2024 9:21 AM EDT 10/20/2024 9:29 AM EDT Maru Abraham DO LAB BLOOD ORDERABLES Final Result [facility] [address] [place] [address] [place] [address], * Troponin I (10/20/2024 9:21 AM EDT) [facility] High Sensitive Troponin I 3.81 0.00 - 78.50 ng/L 10/20/2024 9:58 AM EDT [facility] Comment: Chest pain less than [...] such as iSTAT. Testing performed on Siemens Rollbase (acquired by [employer]) Immunoassay Module. Blood (Venous, Plasma) Venipuncture / Unknown 10/20/2024 9:21 AM EDT 10/20/2024 9:28 AM EDT Julioiubendashosh[employer] GroupSriram GOEL LAB BLOOD ORDERABLES Final Result Performing Organization Address [facility] Co de Phone Number [facility] [address] [place] [address] [place] [address], * (ABNORMAL) PTT No Therapy or Unknown (10/20/2024 9:21 AM EDT) PTT, No Coag Tx/Coag Tx Unk 43.5(H) 25.1 - 36.5 sec LAB COAGULATION METHOD 10/20/2024 10:01 AM EDT [facility] Comment: Discrepant results may occur due to anticoagulant effects such as coumadin, direct thrombin inhibitors; argatroban (Acova), bivalirudin (Angiomax) or dabigatran (Pradaxa) or direct factor Xa inhibitors; rivaroxaban (Xarelto), apixaban (Eliquis) and edoxaban (Savaysa). Testing performed on Kantox 750. Blood (Venous, Plasma) Venipuncture / Unknown 10/20/2024 9:21 AM EDT 10/20/2024 9:29 AM EDT [email or web address] LAB BLOOD ORDERABLES Final Result Performing Organization Address [facility] Co de Phone Number [facility] [address] [place] [address] [place] [address], * (ABNORMAL) CBC and differential (10/20/2024 9:21 AM EDT) [facility] Signature WBC 5.00 4.80 - 10.00 X1000 LAB HEMETOLOGY METHOD 10/20/2024 9:37 AM EDT [facility] RBC 5.51 4.70 - 6.10 x1Mil/ul LAB HEMETOLOGY METHOD 10/20/2024 9:37 AM EDT [facility] Hemoglobin 15.9 14.0 - 18.0 g/dL LAB HEMETOLOGY METHOD 10/20/2024 9:37 AM EDT [facility] Hematocrit 45.8 42.0 - 52.0 % LAB HEMETOLOGY METHOD 10/20/2024 9:37 AM EDT [facility] MCV 83.1 80.0 - 94.0 fL LAB HEMETOLOGY METHOD 10/20/2024 9:37 AM EDT [facility] MCH 28.9 27.0 - 31.0 pg LAB HEMETOLOGY METHOD 10/20/2024 9:37 AM EDT [facility] MCHC 34.7 32.2 - 37.0 gm/dL LAB HEMETOLOGY METHOD 10/20/2024 9:37 AM EDT [facility] RDW 13.1 11.5 - 14.5 % LAB HEMETOLOGY METHOD 10/20/2024 9:37 AM EDT [facility] Platelet Count 257 130 - 400 X1000 LAB HEMETOLOGY METHOD 10/20/2024 9:37 AM EDT [facility] MPV 10.2 9.4 - 12.4 fL LAB HEMETOLOGY METHOD 10/20/2024 9:37 AM EDT [facility] Neutrophils 57.0 40.0 - 74.0 % LAB HEMETOLOGY METHOD 10/20/2024 9:37 AM EDT [facility] Lymphocytes 31.2 19.0 - 48.0 % LAB HEMETOLOGY METHOD 10/20/2024 9:37 AM EDT [facility] Monocytes 10.0(H) 3.4 - 9.0 % LAB HEMETOLOGY METHOD 10/20/2024 9:37 AM EDT [facility] Eosinophils 1.2 0.0 - 7.0 % LAB HEMETOLOGY METHOD 10/20/2024 9:37 AM EDT [facility] Basophils 0.4 0.0 - 2.0 % LAB HEMETOLOGY METHOD 10/20/2024 9:37 AM EDT [facility] Immature Granulocytes 0.2 0.0 - 0.5 % LAB HEMETOLOGY METHOD 10/20/2024 9:37 AM EDT [facility] Nucleated RBCs 0.00 0.00 - 0.20 % LAB HEMETOLOGY METHOD 10/20/2024 9:37 AM EDT [facility] Abs. Neutrophils 2.85 1.92 - 8.31 X1000 LAB HEMETOLOGY METHOD 10/20/2024 9:37 AM EDT [facility] Abs. Lymphocyte 1.56 1.20 - 3.70 X1000 LAB HEMETOLOGY METHOD 10/20/2024 9:37 AM EDT [facility] Abs. Monocytes 0.50 0.14 - 0.97 X1000 LAB HEMETOLOGY METHOD 10/20/2024 9:37 AM EDT [facility] Abs. Eosinophils 0.06 0.00 - 0.76 X1000 LAB HEMETOLOGY METHOD 10/20/2024 9:37 AM EDT [facility] Abs. Basophils 0.02 0.00 - 0.22 X1000 LAB HEMETOLOGY METHOD 10/20/2024 9:37 AM EDT [facility] Abs. Immature Gran. 0.01 0.00 - 0.02 X1000 LAB HEMETOLOGY METHOD 10/20/2024 9:37 AM EDT [facility] Abs. Nucleated RBCs 0.00 0.00 - 0.02 X1000 LAB HEMETOLOGY METHOD 10/20/2024 9:37 [facility] Blood (Venous, Whole Blood) Venipuncture / Unknown 10/20/2024 9:21 AM EDT 10/20/2024 9:29 AM EDT Narrative [facility] - 10/20/2024 9:37 AM EDT Testing performed on Sysmex XN-[id number]. [facility]u [facility] LAB BLOOD ORDERABLES Final Result Performing Organization Address City/[facility]/ZIP Co de Phone Number [facility] [address] [place] [address] Dr [place], [place] [address], [place] * Magnesium (10/20/2024 9:21 AM EDT) Magnesium 1.84 1.60 - 2.60 mg/dL 10/20/2024 9:58 AM EDT [facility] Comment:Testing performed on Siemens Rollbase (acquired by [employer]) Chemistry Module. Blood (Venous, Plasma) Venipuncture / Unknown 10/20/2024 9:21 AM EDT 10/20/2024 9:28 AM EDT [facility]u [facility] LAB BLOOD ORDERABLES Final Result Performing Organization Address [facility] Co de Phone Number [facility] [address] [place] [address] [place] [address], [place] * Lactic acid (10/20/2024 9:21 AM EDT) Lactic Acid 1.0 0.5 - 2.2 mmol/L 10/20/2024 10:07 AM EDT [facility] Comment: Venipuncture should occur prior to N-Acetyl Cysteine (NAC) administration due to the potential for falsely depressed results. Testing performed on Siemens Rollbase (acquired by [employer]) Chemistry Module. Blood (Venous, Plasma) Venipuncture / Unknown 10/20/2024 9:21 AM EDT 10/20/2024 9:34 AM EDT Maru [facility] LAB BLOOD ORDERABLES Final Result Performing Organization Address City/[facility]/ZIP Co de Phone Number [facility] [address] [place] [address] Dr [place], [place] [address], [place] * (ABNORMAL) Comprehensive metabolic panel (10/20/2024 9:21 AM EDT) AST 19 13 - 40 U/L 10/20/2024 9:58 AM [facility] Comment:Avoid hemolyzed samp les due to high AST levels found in red blood cells. ALT 27 16 - 61 U/L 10/20/2024 9:58 AM [facility] Comment:Sulfasalazine concen trations in serum or plasma above 50 mg/L may cause falsely depressed ALT results with the [employer] ALTPLc assay. Alkaline Phosphatase 88 50 - 136 U/L 10/20/2024 9:58 AM [facility] Total Bilirubin 0.80 0.20 - 1.10 mg/dL 10/20/2024 9:58 AM [facility] Blood Urea Nitrogen 10 9 - 23 mg/dL 10/20/2024 9:58 AM [facility] Comment:The use of hemolyzed samples may cause a significant interference with this assay. Creatinine 0.74 0.60 - 1.10 mg/dL 10/20/2024 9:58 AM [facility] Comment: Venipuncture should occur prior to [...] >90 >=90 mL/min/1. 73m2 10/20/2024 9:58 AM [facility] Comment: Calculated using the CKD-EPI Creatinine Equation (2020) Normal: 90 or above Mild loss of kidney function: 60-89 Mild to Moderate loss of kidney function: 45-59 Moderate to severe loss of kidney function: 30-44 Severe loss of kidney function: 15-29 Kidney Failure: Less than 15 Glucose 89.0 74.0 - 106.0 mg/dL 10/20/2024 9:58 AM [facility] Calcium 9.6 8.3 - 10.6 mg/dL 10/20/2024 9:58 AM EDT [facility] Total Protein 7.1 5.7 - 8.2 g/dL 10/20/2024 9:58 AM EDT [facility] Albumin 3.9 3.4 - 5.0 g/dL 10/20/2024 9:58 AM EDT [facility] Sodium 142 136 - 145 mEq/L 10/20/2024 9:58 AM EDT [facility] Potassium 4.0 3.5 - 5.1 mEq/L 10/20/2024 9:58 AM EDT [facility] Comment:Avoid hemolyzed samp les for potassium. Hemolyzed samples may give incorrect elevated potassium. Intracellular potassium concentration is 30-50 times greater than that of extracellular serum or plasma. Chloride 108.0(H) 98.0 - 107.0 mEq/L 10/20/2024 9:58 AM EDT [facility] Anion Gap 12.4 7 - 15 10/20/2024 9:58 AM EDT [facility] Carbon Dioxide 25.6 20.0 - 31.0 mEq/L 10/20/2024 9:58 AM EDT [facility] Blood (Venous, Plasma) Venipuncture / Unknown 10/20/2024 9:21 AM EDT 10/20/2024 9:28 AM EDT Narrative [facility] - 10/20/2024 9:58 AM EDT All testing contained within this panel performed on [employer] Chemistry Module. us Maru Abraham DO LAB BLOOD ORDERABLES Final Result [facility] [address] [place] [address] [place] [address], * ECG 12 lead (10/20/2024 8:26 AM EDT) 10/20/2024 8:26 AM EDT Narrative [facility] - 10/20/2024 8:26 AM EDT ?[facility] ?[address] [place], [place] ??[address] ? Test Date: ?2024-10-20 Pat Name: ? DILIP RESTIVE ?Department: ?? W26 ? Room: ? Gender: ? Male ? 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 Requested By: JAYANT JETER Order Number: [id number] ? Reading MD: ?? Jayant Jeter ? Measurements Intervals ?[place] ? Rate: ? 60 ? P: ?45 [place]: ? 212 ?QRS: ?-13 QRSD: ? 112 ?T: ?16 QT: ? 407 ? QTc: ?407 ? Interpretive Statements Sinus rhythm Borderline prolonged [place] interval Abnormal R-wave progression, early transition Inferior infarct, old Baseline wander in lead(s) V5 Compared to ECG 08/29/2024 09:11:02 Myocardial infarct finding now present Atrial fibrillation no longer present ST (T wave) deviation no longer present Electronically Signed On 10-22-2024 12:09:20 EDT by Jayant Jeter us Jayant Jeter DO ECG ORDERABLES Final Result [facility] from Last 3 Months Insurance [facility] [place] [id number] Care Teams Automation Tender Relationship Specialty Start Date End Date Joe Delaney MD [facility] [place] [address] PCP - General General Medicine 03/17/20
--- OUTSIDE RECORDS SUMMARY | 2024-12-18 10:52 | XMS_ITS | Encounter Summary ---
Author Organization [facility] Address [address] [place] [address] Phone Care Team Providers Care Director Telemetry Name Role Phone Joe Delaney MD Primary Care Provider [phone] Twan Davis MD Unavailable [phone] Wan Rodríguez Unavailable [phone] Rozina Petersen MD Unavailable Encounter Details Date Type Department Care Team Description 05/10/2017 Conversion Endocrinology [address] [place] [phone] Jayjay Allred MD [address] [place] [address] Social History Tobacco Use Types Packs/Day Years Used Date Smoking Tobacco: Never Assessed Sex Assigned at Date Recorded Male 03/28/2020 2:09 AM E DT Job Start Date Occupation Industry Not on file Not on file Not on file documented as of this encounter Progress Notes * Jayjay Allred MD - 05/10/2017 12:16 PM EDT Endocrinology Department of Endocrinology and Metabolism Jayjay Allred MD, [facility], [place], [place] History from: patient Reason for visit: see chief complaint Chief Complaint: follow up HPI: 66-year-old white male with Thyroid Nodules [...] with thyroidectomy and later with levothyroxine for surgicalhypothyroidism. His daughter has small thyroid nodules which are being monitored. 09/17/16: TSH 2.70 and free T4 1.05. He has a history of atrial fibrillation and is now on anticoagulation using Xarelto. The [place] [employer] (DEREK) and the [place] Association of Clinical Endocrinologists (AACE) recommend ultrasound-guided [...] episodic palpitations and requested a hormonal evaluation. Will screen for Pheochromocytoma. Today he appears clinically euthyroid, vitals are stable, he does not appear to have any mass effect from his thyroid gland and he is in no acute distress. Past Medical History(reviewed history from 02/19/2017- no changes required): Thyroid nodules. Htn. Elev PSA. . A-fib. . Gerd. Allergic rhinitis.BPH. Past Surgical History (reviewed history from 02/19/2017 - no changes required): Tonsillectomy, childhood; . Dental implants. . Prost bx. Family History reviewed - no changes required Additional comments:Mother age 88, kidney cancer, hysterectomy, breast cancer, cancerous colonpolyp. Father is , at age 83, [place] suspected. Had high PSA but not Ca. 1 brother is alive and well. 1 sister is alive and well. Social History (reviewed history from 02/19/2017 - no changes required): Marital Status: . . Number of Children: 3.. Place of : [place]. 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 Sleep History: 6-8 hrs;.Travel History: [place];. Tobacco use: never smoker. Passive smoke exposure: [...] palpitations. Denies chest pains. Respiratory: Denies cough, dyspnea, excessive sputum, hemoptysis, pleuritic chest pain, wheezing. Gastrointestinal: Denies nausea, vomiting, diarrhea, constipation. Genitourinary: Denies dysuria, hematuria. Musculoskeletal: Denies back pain, joint pain. Skin/Breast: Denies rash, itching, dryness, suspicious lesions, breast tenderness, nipple discharge. Neurologic: Denies seizures, syncope,tremors. Psychiatric: Denies depression, anxiety. Endocrine: Denies cold intolerance, heat intolerance. Allergies: PCN (Moderate) AMLODIPINE BESYLATE (AMLODIPINE BESYLATE) (Moderate) PENICILLIN (Moderate) Intake Form: Vital Signs Entering Staff: Lorne Pickard MA May 10, 2017 12:19 PM Entered weight: 224 lb. Calculated weight: 224 lb. (101.82kg.) Height: 74in.(187.96cm.) Expanded BP Assessment Left Arm BP: 124/80 mm Hg Pulse Rate: 82 Body Mass Index in-lb BMI (in-lb) 28.86 Physical Exam General appearance: well nourished, well [...] intact Mood and affect: no depression, anxiety, oragitation Preventive Care/Screening EKG: complete (12/27/2015) Colonoscopy: complete (11/11/2012) BMI: 28.86 (05/10/2017) Blood Pressure: 124/80 (05/10/2017) Tobacco use: never smoker (05/10/2017) Alcohol use: yes (05/10/2017) Drug use: never (05/10/2017) CHOLESTEROL: 169 (09/17/2016) HDL: 41 (09/17/2016) LDL: 104 (09/17/2016) TRIGLYCERIDE: 122 (09/17/2016) PSA: 8.96 (05/10/2016) PNEUMOCOCCAL: refused (07/18/2012) Prevnar 13: refused (09/07/2016) TDAP: Done (02/19/2017) Zostavax: refused (02/19/2017) Assessment Allergies: PCN (Moderate) AMLODIPINE BESYLATE (AMLODIPINE BESYLATE) (Moderate) PENICILLIN (Moderate) Problems (including changes): PALPITATIONS (ICD-785.1) (BKI51-D47.2) PRIMARY LOCALIZED OSTEOARTHRITIS OF RIGHT KNEE (ICD-715.16) (LTK50-S95.11) KNEE PAIN, RIGHT (ICD-719.46) (YYU43-H10.561) GOITER (ICD-240.9) (BJA18-U63.9) ANEMIA, MICROCYTIC (ICD-281.9) (XRU21-A23.9) GOITER, MULTINODULAR (ICD-241.1) (YWR55-S27.2) HEMORRHOIDS (ICD-455.6) (WFF29-F22.9) KEY'S ESOPHAGUS (ICD-530.85) (BCC42-M23.70) THYROID NODULES (ICD-241.0) (BZD00-B78.1) ANXIETY (ICD-300.00) (YEC43-C31.9) ATRIAL FIBRILLATION, PAROXYSMAL (ICD-427.31) (QZL89-B24.0) LUMBAGO (ICD-724.2) (SLR68-Z43.5) HX OF BEE STING ALLERGY (ICD-V15.06) (TLN97-D63.030) ESSENTIAL HYPERTENSION (ICD-401.9) (QEQ16-V62) Sx of DEGENERATIVE JOINT DISEASE, KNEE (ICD-715.96) (XDB94-T42.9) BENIGN PROSTATIC HYPERPLASIA (ICD-600.00) (HKO78-W64.0) PSA, INCREASED (ICD-790.93) (EBK02-O34.2) SCREENING FOR UNSPECIFIED CONDITION (ICD-V82.9) (KWP50-W01.9) SCREENING FOR LIPOID DISORDERS (ICD-V77.91) (JAJ08-T58.220) GERD (ICD-530.81) (VVZ76-N26.9) ProblemAssessments: Medications (including changes): LOSARTAN POTASSIUM 100 MG TABS (LOSARTAN POTASSIUM) one po qd XARELTO 20 MG TABS (RIVAROXABAN) one po qd FLECAINIDE ACETATE 50 MG TABS (FLECAINIDE ACETATE) Pt takes prn for A Fib, not qd Impression: 66-year-old white male with Thyroid Nodules status post biopsy here for follow- up evaluation. Plan: Screen for pheochromocytoma to evaluate his episodic palpitations. Recommend repeating thyroid ultrasound in 12 months from last which would be around 05/2018 to evaluate for changes in the thyroid nodules. If there is significant increase in size of the thyroid nodules on repeat thyroid ultrasound, would recommend ultrasound-guided thyroid biopsy to evaluate for t hyroid cancer. Discussed the results of the last thyroid ultrasound in detail, compared this ultrasound to previous thyroid ultrasound and counseling provided along with reassurance on the findings. Check complete thyroid function tests on return to clinic. Total visit time [...] they will be promptly addressed. Orders: SNOMED-CT: [id number] Patient Encounter for Meaningful Use[[id number]] CALCITONIN [010836] Plasma Free Metanephrines [727243] [id number] Patient - Detailed with Moderate Complexity [[id number]] Ultrasound Head & neck-soft tissues (eg. thyroid) [USSOFTISSU] cc: Joe Delaney MD Injections Please note, this documentation has been converted into the en-Gauge EHR from our Reviews[employer] EMR forinformational purposes only. This documentation must not be released or used for legal purposes as the note is missing the responsible provider???s signature. A copy of the legal medical record can be obtained or printed only from the [employer] EMR. documented in this encounter Plan of Treatment Upcoming Encounters Date Type Specialty Care Team Description 01/25/2025 Office Visit Internal Medicine Joe Delaney MD [facility] [place] [address] 02/03/2025 Office Visit Pain Medicine Patricia Sotelo PA [address] [place] [address] documented as of this encounter Visit Diagnoses Not on filedocumented in this encounter Additional Health Concerns Infection Onset Date Last Indicated Resolved Time COVID-19 Rule Out Comment:04/29/2020 Negative (PAT) 02/20/2020 COVID19 NEGATIVE (PAT) 02/23/2020 02/23/2020 02/23/2020 10:42 AM EDT documented as of this encounter Care Teams Director Telemetry Relationship Specialty Start Date End Date Joe Delaney MD [address] [place], [place] [phone] PCP - General Internal Medicine 11/17/18 Twan Davis MD [address] [place] [address] Referring Physician Internal Medicine 11/17/18 Wan Rodríguez [facility] [place] [address] 06/02/19 Rozina Petersen MD Gastroenterology 03/30/20 documented as of this encounter
--- OUTSIDE RECORDS SUMMARY | 2024-12-18 10:52 | XMS_ITS | Encounter Summary ---
Author Organization [facility] Address [address] [place] [address] Phone Care Team Providers Care Incoming Inspector Name Role Phone Joe Delaney MD Primary Care Provider [phone] Twan Davis MD Unavailable [phone] Wan Rodríguez Unavailable [phone] Rozina Petersen MD Unavailable Encounter Details Date Type Department Care Team Description 08/19/2017 Conversion Internal Medicine [address] [place] [phone] Joe Delaney MD [address] [place], [place] [id number] Social History Tobacco Use Types Packs/Day Years Used Date Smoking Tobacco: Never Assessed Sex Assigned at Date Recorded Male 03/28/2020 2:09 AM E DT Job Start Date Occupation Industry Not on file Not on file Not on file documented as of this encounter Progress Notes * Joe Delaney MD - 08/19/2017 9:19 AM EST History of Present Illness Reason for visit: routine follow-up Chief Complaint: Chronic, lab Comments: Pt states I feel great. Urologist is now in [place]. Pt states PSA is down to 4 rangeand prostate does not ache like in past. Occas Steroid injections R knee with improvement, sees Ortho PA. On same meds. Goes into A Fib approx every 2 mo; takes Propranolol and usually teminates in about 8 hours. Triggers were alcohol, caffeine, salt. Takes Vit C and it seems to help too. Platelets on 08/12/2017 was 270. Hemoglobin on 08/12/2017 was 16.1. Hematocrit on 08/12/2017 was 45.9. WBC on 08/12/2017 was 8.2. Glucose on 08/12/2017 was 83. BUN on 08/12/2017 was 12. Creatinine on08/12/2017 was 0.9. Calcium on 08/12/2017 was 9.9. Total Protein on 08/12/2017 was 6.8. Albumin on 08/12/2017 was 4.5. Total Bilirubin on 08/12/2017 was 0.49. SGOT on 08/12/2017 was 19.Sodium on 08/12/2017 was 140. Potassium on 08/12/2017 was 4.1. Chloride on 08/12/2017 was 100. Total CO2 on 08/12/2017 was 29.9. SGPT on 08/12/2017 was 30. Anion Gap on 08/12/2017 was 14. Globulin Total on 08/12/2017 was 2.3. Colonoscopy exam on 11/11/2012 was complete.holesterol on 09/17/2016 was 169. HDL on 09/17/2016 was 41. Triglyceride on 09/17/2016 was 122. LDL on 09/17/2016 was 104. PSA on 05/10/2016 was8.96. Free T-4 on 04/15/2017 was 1.04. TSH on 04/15/2017 was 1.57.T3 Total on 11/20/2016 was 140. Past Medical History: Thyroid nodules. Htn. Elev PSA. . A-fib. . Gerd. Allergic rhinitis. BPH. Past Surgical History: Tonsillectomy, childhood; . Dental implants. . Prost bx. Social History: Marital Status: . . Number of Children: 3.. Place of : [place].. 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 Sleep History: 6-8 hrs;. Travel History: [place];. Tobacco use: never smoker. Passive smoke exposure: no. Alcohol use:yes. Alcohol use Frequency:social. Drug use: never. HIV high risk behavior: no. Caffeine use (drinks/day): 3. Exercise (times/week): 3. Seatbelt use (%): 100. 2 cats (for 2 years), a dog. . Fall Risk: Negative Medications: (prior to this visit) - verified by patient or patient veterans contact representative LOSARTAN POTASSIUM 100 MG ORAL TABLET (LOSARTAN POTASSIUM) one po qd XARELTO 20 MG ORAL TABLET (RIVAROXABAN) one po qd PROPRANOLOL HCL TABLET (PROPRANOLOL HCL TABS) as needed when in Afib Allergies: PCN (Moderate) AMLODIPINE BESYLATE (AMLODIPINE BESYLATE) (Moderate) PENICILLIN (Moderate) Review of Systems General: Denies fevers, chills, sweats. Cardiovascular: Denies chest pains, palpitations, syncope. Respiratory: Denies cough, wheezing. Gastrointestinal: Denies change in bowel habits, abdominal pain, melena. Genitourinary: Denies dysuria, hematuria, see HPI. Vital Signs Entering Staff: Cecy Whitten MA August 19, 2017 9:20 AM Entered weight: 227 lb. weight: 227 lb. (103.18kg.) Height: 74in.(187.96cm.) Blood Pressure: 116/64 Pulse Rate: 66 Pulse rhythm: regular Expanded BP Assessment Right arm BP: 120/80 mm Hg O2 Sat: 98% on Room Air - At Rest Body Mass Index in-lb BMI (in-lb) 29.25 Physical Exam General Appearance: well nourished, well hydrated General comments: appears well, robust Skin: warm and dry, no rash Head: normocephalic Neck: no neck masses, thyroid normal palpation Respiratory: no accessory muscle use, no dullness, clear to auscultation, no rales, no rhonchi, no evidence of consolidation Cardiovascular: NL S1/S2, no murmurs, no S3/S4 or gallop rhythm, no edema Breast: no masses Gastrointestinal (Abdomen): abdomen soft w/o masses, non-distended/non-tender Genitourinary (male): Male comments: defer Musculoskeletal Exam: Gait and station: normal Digits and nails: normal Psychiatric: Judgment, insight intact, orientated to time/place/person, intact for recent and remote events Patient Health Questionnaire (PHQ-2). During the past 2 weeks how often have you been bothered by feeling down, depressed, or hopeless? Not at all During the past 2 weeks how often have you been bothered by little interest or pleasure in doing things? Not at all Preventive Care/Screening EKG: complete (12/27/2015) Colonoscopy: complete (11/11/2012) BMI: 29.25 (08/19/2017) Blood Pressure: 116/64 (08/19/2017) Tobacco use: never smoker (05/10/2017) Alcohol use: yes (05/10/2017) Drug use: never (05/10/2017) CHOLESTEROL: 169 (09/17/2016) HDL: 41 (09/17/2016) LDL: 104 (09/17/2016) TRIGLYCERIDE: 122(09/17/2016) PSA: 8.96 (05/10/2016) PNEUMOCOCCAL: refused (07/18/2012) Prevnar 13: refused (09/07/2016) TDAP: Done (02/19/2017) Zostavax: refused (02/19/2017) Assessment Problems: Assessed PRIMARY LOCALIZED OSTEOARTHRITIS OF RIGHT KNEE as improved - Joe Delaney MD - Signed Assessed PALPITATIONS as improved - Joe Delaney MD - Signed Assessed ANEMIA, MICROCYTIC as improved - Joe Delaney MD - Signed Assessed ATRIAL FIBRILLATION, PAROXYSMAL as improved - Joe Delaney MD - Signed Assessed BENIGN PROSTATIC HYPERPLASIA as unchanged - Joe Delaney MD - Signed Assessed GERD as improved - Joe Delaney MD - Signed Comments: Refuses vaccines Doing well overall. Plan Comments: Continue same. New Orders: SNOMED-CT: [id number] Patient Encounter for Meaningful Use [[id number]] Disposition: return to clinic in 9 mo Prescriptions: XARELTO 20 MG ORAL TABLET (RIVAROXABAN) one po qd #90 x 2 Entered and Authorized by: Joe Delaney MD Signed by: Joe Delaney MD on 08/19/2017 Method used: Electronically to [facility] [phone]* (retail) [address] [place] [address] Ph: [phone] or [phone] Fax: [phone] RxID: [id number] LOSARTAN POTASSIUM 100 MG ORAL TABLET (LOSARTAN POTASSIUM) one po qd #90 x 2 Entered and Authorized by: Joe Delaney MD Signed by: Joe Delaney MD on 08/19/2017 Method used: Electronically to [facility] [phone]* (retail) [address] [place] [place] [address] Ph: [phone] Fax: [phone] RxID: [id number] Injections Next office visit 05/20/18 @ 9 am with dcg appt card handed to patient. End of visit instruction sheet handed to patient. Emili Curtis RACHEL August 19, 2017 10:03 AM Please note, this documentation has been converted into the Re.Mu EHR from our [employer] EMR forinformational purposes only. This documentation must not be released or used for legal purposes as the note is missing the responsible provider?s signature. A copy of the legal medical record can be obtained or printed only from the [employer] EMR. documented in this encounter Plan of Treatment Upcoming Encounters Date Type Specialty Care Team Description 01/25/2025 Office Visit Internal Medicine Joe Delaney MD [address] [place] [phone] 02/03/2025 Office Visit [place] [address] [place] [phone] documented as of this encounter Visit Diagnoses Not on filedocumented in this encounter Additional Health Concerns Infection Onset Date Last Indicated Resolved Time COVID-19 Rule Out Comment:04/29/2020 Negative (PAT) 02/20/2020 COVID19 NEGATIVE (PAT) 02/23/2020 02/23/2020 02/23/2020 10:42 AM EDT documented as of this encounter Care Teams Incoming Inspector Relationship Specialty Start Date End Date Joe Delaney MD [address] [place] [address] PCP - General Internal Medicine 11/17/18 Twan Davis MD [address] [place] [address] Referring Physician Internal Medicine 11/17/18 Wan Rodríguez [facility] Vlad Katz [facility] [place] [address] 06/02/19 Rozina Petersen MD Gastroenterology 03/30/20 documented as of this encounter
--- OUTSIDE RECORDS SUMMARY | 2024-12-18 10:52 | XMS_ITS | Encounter Summary ---
Author Organization [facility] Address [address] [place] [address] Phone Care Team Providers Care Manager Systems Name Role Phone Joe Delaney MD Primary Care Provider Twan Davis MD Unavailable [phone] Wan Rodríguez Unavailable Rozina Petersen MD Unavailable Encounter Details Date Type Department Care Team Description 05/14/2017 Conversion Internal Medicine [address] [place] [phone] Joe Delaney MD [address] [place], [place] [phone] Social History Tobacco Use Types Packs/Day Years Used Date Smoking Tobacco: Never Assessed Sex Assigned at Date Recorded Male 03/28/2020 2:09 AM E DT Job Start Date Occupation Industry Not on file Not on file Not on file documented as of this encounter Plan of Treatment Upcoming Encounters Date Type Specialty Care Team Description 01/25/2025 Office Visit Internal Medicine Joe Delaney MD [address] [place], [place] [phone] 02/03/2025 Office Visit Pain Medicine Patricia Sotelo PA [address] [place] [address] documented as of this encounter Procedures Procedure Name Priority Date/Time Associated Diagnosis Comments CBC Routine 05/14/2017 1:35 PM EDT documented in this encounter Results * (ABNORMAL) CBC (05/14/2017 1:35 PM EDT) WBC 6.4 4.8 - 10.8 10*3/mm3 [facility] RBC 5.2 4.7 - 6.1 10*6/mm3 [facility] Hemoglobin 15.5 14.0 - 18.0 g/dL [facility] Hematocrit 44.0 42.0 - 52.0 % [facility] MCV 84.60 80.00 - 94.0 fL [facility] MCH 29.8 26.0 - 34.0 pg [facility] MCHC 35.2 32.0 - 36.0 G/DL [facility] RDW 13.2 9.1 - 17.5 % [facility] Platelets 257 130 - 400 10*3/mm3 [facility] MPV 10.6 6.4 - 13.3 fL [facility] Neutrophils % 60.00 42.20 - 75.2 % [facility] Neutrophils Absolute 3.83 1.40 - 6.50 10*3/mm3 [facility] Lymphocytes Relative 29.20 20.50 - 51.1 % [facility] Lymphocytes Absolute 1.86 1.20 - 3.40 10*3/mm3 [facility] Monocytes Relative 8.50 1.70 - 9.30 % [facility] Monocytes Absolute 0.54(H) 0.10 - 0.50 10*3/mm3 [facility] Eosinophils Relative 2.00 0.00 - 10.00 % [facility] Eosinophils Man 0.13 0.00 - 0.70 10*3/mm3 [facility] Basophils Relative 0.30 0.00 - 2.00 % [facility] Basophils Absolute 0.02 0.00 - 0.30 10*3/mm3 [facility] 05/14/2017 1:35 PM EDT 05/14/2017 1:38 PM EDT Narrative [facility] - 05/14/2017 3:10 PM EDT Joe Delaney MD LAB BLOOD ORDERABLES FREQUENCY [facility] [address] [facility] [place], [place] [phone] documented in this encounter Visit Diagnoses Not on filedocumented in this encounter Additional Health Concerns Infection Onset Date Last Indicated Resolved Time COVID-19 Rule Out Comment:04/29/2020 Negative (PAT) 02/20/2020 COVID19 NEGATIVE (PAT) 02/23/2020 02/23/2020 02/23/2020 10:42 AM EDT documented as of this encounter Care Teams Manager Systems Relationship Specialty Start Date End Date Joe Delaney MD [address] [place] [address] PCP - General Internal Medicine 11/17/18 Twan Davis MD [address] [place] [address] Referring Physician Internal Medicine 11/17/18 Wan Rodríguez [facility] Vlad Katz [facility] [place] [address] 06/02/19 Rozina Petersen MD Gastroenterology 03/30/20 documented as of this encounter
--- OUTSIDE RECORDS SUMMARY | 2024-12-18 10:52 | XMS_ITS | Encounter Summary ---
Author Organization [facility] Address [address] [place] [address] Phone Care Team Providers Care Motor Lodge Clerk Name Role Phone Joe Delaney MD Primary Care Provider [phone] Twan Davis MD Unavailable [phone] Wan Rodríguez Unavailable [phone] Rozina Petersen MD Unavailable Encounter Details Date Type Department Care Team Description 09/19/2017 Conversion Internal Medicine [address] [place] [phone] Joe Delaney MD [address] [place], [place] [id number] Social History Tobacco Use Types Packs/Day Years Used Date Smoking Tobacco: Never Assessed Sex Assigned at Date Recorded Male 03/28/2020 2:09 AM E DT Job Start Date Occupation Industry Not on file Not on file Not on file documented as of this encounter Progress Notes * Joe Delaney MD - 09/19/2017 5:40 AM EST History of Present Illness History from: patient Chief Complaint: Probable Flu Onset: 1 day Cough since 2 am today. Fever just in last few hours. Chills. T 100 at home. Past Medical History: Thyroid nodules. Htn. Elev PSA. . A-fib. . Gerd. Allergic rhinitis. BPH. Past Surgical History: Tonsillectomy, childhood; . Dental implants. . Prost bx. 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 Tobacco use: never smoker. 2 cats (for 2 years), a dog. . Medications: (prior to this visit) - verified by patient or patient career services representative LOSARTAN POTASSIUM 100 MG ORAL TABLET (LOSARTAN POTASSIUM) one po qd XARELTO 20 MG ORAL TABLET (RIVAROXABAN) one po qd PROPRANOLOL HCL TABLET (PROPRANOLOL HCL TABS) as needed when in Afib Allergies: PCN (Moderate) AMLODIPINE BESYLATE (AMLODIPINE BESYLATE) (Moderate) PENICILLIN (Moderate) Review of Systems General: Complains of fevers, chills, fatigue, malaise. Cardiovascular: Denies chest pains, palpitations. Respiratory: Complains ofcough. Denies excessive sputum, hemoptysis. Intake Form medication list verified - done Entering Staff: Richard Hermosillo RN September 19, 2017 5:42 PM Vital Signs Height: 74 in. Weight: 220 lbs. Temperature: 101.4 deg F. (38.6 deg C.) Sitting BP: 138/84 mm Hg Pulse Rate: 76 Respirations: 20 O2 Sat: 97%BMI (in-lb): 28.35 Physical Exam General Appearance: well nourished, well hydrated General comments: skin warm. looks mildly ill, no distress at all. Skin: warm and dry Head: normocephalic Eyes:conjunctival clear, no discharge ENT (ears): L normal/clear, R normal/clear, ear canal w/o inflammation bilaterally Abnormal ENT(Ears): R TM red Ears comments: Rt TM hyperemic but not swollen. L TM clear. ENT (nose): Abnormal ENT(Nose): nasal turbinates inflamed Nasal Discharge: none ENT (mouth and throat): pharynx w/o inflammation, oral mucosa normal Neck: supple, no significant enlarged lymph nodes, no neck masses Respiratory: no accessory muscle use, equal air expansion, clear to auscultation, no rales, no rhonchi, no evidence of consolidation, no wheezes Cardiovascular: NL S1/S2, no murmurs, no S3/S4 or gallop rhythm Cardiovascular Comments: regular S1S2 Psychiatric: Judgment, insight intact, orientated to time/place/person, intact for recent and remote events Assessment Problems Added/Changed/Removed: Added new problem of FEVER (ICD-780.60) (SAP63-B74.9) - Signed Added new problem of OTITIS MEDIA (ICD-382.9) (NRA11-Q98.90) - Signed Assessed OTITIS MEDIA as new - mild - Signed Plan Patient Info Sheets Comments: Rx Tamiflu x 5 days even though rapid test was Neg. Test is sent for additional analysis Rx Biaxin. Keep well hydrated Tylenol for fever and aching. F/u with PCP if not improved. Medications (added/changed): TAMIFLU 75 MG ORAL CAPSULE (OSELTAMIVIR PHOSPHATE) one capsule by mouth bid AUGMENTIN 500-125 MG ORAL TABLET (AMOXICILLIN-POT CLAVULANATE) one tab po bid BIAXIN 500 MG ORAL TABLET (CLARITHROMYCIN) one po bid Medications (removed): AUGMENTIN 500-125 MG ORAL TABLET (AMOXICILLIN-POT CLAVULANATE) one tab po bid - Other Prescriptions: BIAXIN 500 MG ORAL TABLET (CLARITHROMYCIN) one po bid #10[Tablet] x 0 Entered and Authorized by: Joe Delaney MD Signed by: Joe Delaney MD on 09/19/2017 Method used: Electronically to [facility] [phone]* (retail) [address] [place] [address] Ph: [phone] or [phone] Fax: [phone] RxID: [id number] AUGMENTIN 500-125 MG ORAL TABLET (AMOXICILLIN-POT CLAVULANATE) one tab po bid #14[Tablet] x 0 Entered and Authorized by: Joe Delaney MD Signed by: Joe Delaney MD on 09/19/2017 Method used: Electronically to [facility] [phone]* (retail) [address] [place] [address] Ph: [phone] or [phone] Fax: [phone] RxID: [id number] TAMIFLU 75 MG ORAL CAPSULE (OSELTAMIVIR PHOSPHATE) one capsule by mouth bid #10 x 0 Entered and Authorized by: Joe Delaney MD Signed by: Joe Delaney MD on 09/19/2017 Method used: Electronically to [facility] [phone]* (retail) [address] [place] [address] Ph: [phone] or [phone] Fax: [phone] RxID: [id number] Injections Medication List Reviewed Please note, this documentation has been converted into the Epic EHR from our [employer] EMR forinformational purposes only. This documentation must not be released or used for legal purposes as the note is missing the responsible provider???s signature. A copy of the legal medical record can be obtained or printed only from the [employer] EMR. Notify F/u Flu test came back + for Flu A Already treated. Finish meds See me if not improved. Please note, this documentation has been converted into the Epic EHR from our [employer] EMR forinformational purposes only. This documentation must not be released or used for legal purposes as the note is missing the responsible provider???s signature. A copy of the legal medical record can be obtained or printed only from the [employer] EMR. Patient aware of above results and instructions, verbalized understanding. patient already feels better. Please note, this documentation has been converted into the Epic EHR from our [employer] EMR forinformational purposes only. This documentation must not be released or used for legal purposes as the note is missing the responsible provider???s signature. A copy of the legal medical record can be obtained or printed only from the [employer] EMR. * Joe Delaney MD - 09/19/2017 4:49 AM EST Phone Note Caller's Name: DILIP Call Details: Dilip called. Additional comments: Patient called office c/o cough/congestion/fever/achy/chills. Requesting appt today. Advised patient Dr. Delaney is not in the office at this time. Offered appt 09/20/17 @ 12 pm, patient declined stated he would just goto . Emili Curtis LPN September 19, 2017 4:51 PM . Taken by: Emili Curtis LPN on September 19, 2017 4:49 PM Please note, this documentation has been converted into the Epic EHR from our [employer] EMR forinformational purposes only. This documentation must not be released or used for legal purposes as the note is missing the responsible provider???s signature. A copy of the legal medical record can be obtained or printed only from the [employer] EMR. documented in this encounter Plan of Treatment Upcoming Encounters Date Type Specialty Care Team Description 01/25/2025 Office Visit [place] [address] [place] [phone] 02/03/2025 Office Visit Pain Medicine Patricia Sotelo PA [address] [place] [address] documented as of this encounter Visit Diagnoses Not on filedocumented in this encounter Additional Health Concerns Infection Onset Date Last Indicated Resolved Time COVID-19 Rule Out Comment:04/29/2020 Negative (PAT) 02/20/2020 COVID19 NEGATIVE (PAT) 02/23/2020 02/23/2020 02/23/2020 10:42 AM EDT documented as of this encounter Care Teams Motor Lodge Clerk Relationship Specialty Start Date End Date Joe Delaney MD [address] [place] [address] PCP - General Internal Medicine 11/17/18 [place] [address] [place] [address] Referring Physician Internal Medicine 11/17/18 Wan Rodríguez [facility] [place] [address] 06/02/19 Rozina Petersen MD Gastroenterology 03/30/20 documented as of this encounter
--- OUTSIDE RECORDS SUMMARY | 2024-12-18 10:52 | XMS_ITS | Encounter Summary ---
Author Organization [facility] Address [address] [place] [address] Phone Care Team Providers Care Intern Retail Name Role Phone Joe Mensah MD Primary Care Provider [phone] Twan Davis MD Unavailable [phone] Wan Rodríguez Unavailable [phone] Rozina Petersen MD Unavailable Encounter Details Date Type Department Care Team Description 10/03/2017 Conversion Orthopedics [address] [place] [phone] Eleanor Mcfarland PA [address] [place] [address] Social History Tobacco Use Types Packs/Day Years Used Date Smoking Tobacco: Never Assessed Sex Assigned at Date Recorded Male 03/28/2020 2:09 AM E DT Job Start Date Occupation Industry Not on file Not on file Not on file documented as of this encounter Progress Notes * CHANDRA Salas - 10/03/2017 9:05 AM EST Supervising Physician: Jamison Castano MD Orthopaedics Office Visit PCP: JOE MENSAH MD Fred is a 67 Years Old male. He presents today for a follow-up on right knee pain. Since the last visit on 07.03.17 patient notes . He recieved cortisone injection for right knee at that time which provided relief for 3 months. Patient presents requesting right knee cortisone injection at this visit. He c/o numbness right great toe when knee pain is at its worse. Seems to improve when he gets injections. Denies any radiation up the leg or walking with a limp. Denies back pain.. He states that the pain is about a 5 out of 10 and is getting better. The activites that make the pain worse [...] changes required: Mother age 88, kidney cancer, hysterectomy,breast cancer, cancerous colon polyp. , Father is , at age 83, MD suspected. Had high PSA but not Ca. 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 no Review of Systems: Fred denies new complaints of fever, weight gain, weight loss, fatigue, night sweats, chest pain, palpations, shortness of breath at rest, shortness of breath after work, numbness, tingling, weakness, confusion, constipation, diarrhea, nausea/vomitting, blood in stool, heartburn, urinary frequency, difficulty urinating, blood in urine, pain with urination, rash, anxiety, depression, swelling in legs, bruising, vision problems, hearing problems Vital Signs: Weight: 220 Height: 74in. BMI [...] yes Special Tests: Left Right Angelo: neg Foot/Ankle: no pain palpation right great toe, unable to reproduce numbness felt.. Cardiovascular: Posterior Tibial pulses are 2+ on [...] Funmi Mcfarland RPA-C - Signed New Problems: NUMBNESS OF TOE (ICD-782.0) (OHQ91-N72.0) -- Plan: - Patient describes numbness in right great toe only when knee seems to be bothering him. Denies any radiation up leg or back pain. He relates it to his knee. This is unlikely. I recommended paying attention to shoe wear in association with symptoms. Currently it is intermittent, we will monitor for now. We can work up further if it increases or fails to improve. - Discussed option of repeat cortisone injection Right Knee along with risks and benefits. Patient elected to proceed today. - Encouraged continued HEP for quad strength and ROM. - He isunable to take NSAIDS due to Xarelto for A. Fib. - Follow up in 3 months. - Patient instructed to call with any questions or concerns. New Orders: SNOMED-CT: [id number] Patient Encounter for Meaningful Use [[id number]] Fred was given his 3rd Cortisone injection in his right knee(s). Using [...] this documentation has been converted into the MyNines EHR from our [employer] EMR forinformational purposes only. This documentation must not be released or used for legal purposes as the note is missing the responsible provider???s signature. A copy of the legal medical record can be obtained or printed only from the [employer] EMR. Injections Injections Dx for orders: PRIMARY LOCALIZED OSTEOARTHRITIS OF RIGHT KNEE ([id number]) Kenalog dosage given: 1ml Kenalog strength: 40mg Kenalog wasted: 0 Kenalog given by: Funmi Armenta Kenalog Time given: 930 Kenalog Medication provided by: floor-stock Kenalog Mfr: bristol magaña Kenalog Rte: Intra-articular Kenalog Lot: [id number] Kenalog ND number: [id number] Kenalog Exp Date: Kenalog Site: right knee Lidocaine dosage given: 2ml Lidocaine wasted: 0 Lidocaine given by: Funmi Armenta Lidocaine Time given: 930 Lidocaine Medication provided by: floor-stock Lidocaine Mfr: Hospira Lidocaine Rte: Intra-articular Lidocaine Lot: [id number] Lidocaine NDC number: [id number] Lidocaine Exp Date: 09.05.18 Lidocaine Site: right knee Marcaine dosage given: 2ml Marcaine wasted: 0 Marcaine given by: Funmi Armenta Marcaine Time given: 930 Marcaine Medication provided by: floor-stock Marcaine Mfr: Hospira Marcaine Rte: intra-articular Marcaine Lot: [id number] Marcaine NDC number: [id number] Marcaine Exp Date: 11.03.18 Marcaine Site: right knee Order Changes - Added new Service order of Kenalog 40 mg ([id number]) - Signed Please note, this documentation has been converted into the MyNines EHR from our [employer] EMR forinformational purposes only. This documentation must not be released or used for legal purposes as the note is missing the responsible provider???s signature. A copy of the legal medical record can be obtained or printed only from the [employer] EMR. documented in this encounter Plan of Treatment Upcoming Encounters Date Type Specialty Care Team Description 01/25/2025 Office Visit Internal Medicine Joe Mensah MD [address] [place], [place] [phone] 02/03/2025 Office [place] [address] [place] [address] documented as of this encounter Visit Diagnoses Not on filedocumented in this encounter Additional Health Concerns Infection Onset Date Last Indicated Resolved Time COVID-19 Rule Out Comment:04/29/2020 Negative (PAT) 02/20/2020 COVID19 NEGATIVE (PAT) 02/23/2020 02/23/2020 02/23/2020 10:42 AM EDT documented as of this encounter Care Teams Intern Retail Relationship Specialty Start Date End Date Joe Mensah MD [address] [place], [place] [phone] PCP - General Internal Medicine 11/17/18 [place] [address] [place] [address] Referring Physician Internal Medicine 11/17/18 Wan Rodríguez [facility] [place] [address] 06/02/19 Rozina Petersen MD Gastroenterology 03/30/20 documented as of this encounter
--- OUTSIDE RECORDS SUMMARY | 2024-12-18 10:52 | XMS_ITS | Encounter Summary ---
Author Organization [facility] Address [address] [place] [address] Phone Care Team Providers Care Traffic Control Officer Name Role Phone Joe Delaney MD Primary Care Provider Twan Davis MD Unavailable [phone] Wan Rodríguez Unavailable Rozina Petersen MD Unavailable Encounter Details Date Type Department Care Team Description 05/14/2017 Conversion Endocrinology [address] [place] [address] Jayjay Allred MD [address] [place], [place] [phone] Social History Tobacco Use Types Packs/Day Years Used Date Smoking Tobacco: Never Assessed Sex Assigned at Date Recorded Male 03/28/2020 2:09 AM E DT Job Start Date Occupation Industry Not on file Not on file Not on file documented as of this encounter Plan of Treatment Upcoming Encounters Date Type Specialty Care Team Description 01/25/2025 Office Visit Internal Medicine Joe Delaney MD [address] [place] [address] 02/03/2025 Office Visit Pain Medicine Patricia Sotelo PA [address] [place] [address] documented as of this encounter Procedures Procedure Name Priority Date/Time Associated Diagnosis Comments METANEPHRINES PLASMA Routine 05/14/2017 1:35 PM EDT CALCITONIN Routine 05/14/2017 1:35 PM EDT documented in this encounter Results * Metanephrines Plasma (05/14/2017 1:35 PM EDT) Normetanephrine, Free 54 0 - 145 pg/mL [facility] Metanephrine, Free 19 0 - 62 pg/mL [facility] Comment: Concentrations of Normetanephrine between 146 and 487 pg/mL, and Metanephrine between 63 and 255 pg/mL are considered indeterminate. Follow-up biochemical testing is recommended when patient levels fall within this indeterminate range. These tests include repeat testing of plasma/urinary fractionated metanephrines and plasma catecholamines. 05/14/2017 1:35 PM EDT 05/14/2017 1:38 PM EDT Narrative [facility] - 05/17/2017 1:16 PM EDT Testing performed at: [] [facility] [address], [phone], , President: Carter Norton MD Jayjay Allred MD LAB BLOOD ORDERABLES [facility] * Calcitonin (05/14/2017 1:35 PM EDT) Calcitonin 7.0 0.0 - 8.4 pg/mL [facility] Comment: [facility] Immulite 2000 ICMA methodology. ??Values obtained with different assay methods or kits cannot be used interchangeably. 05/14/2017 1:35 PM EDT 05/14/2017 1:38 PM EDT Narrative [facility] - 05/16/2017 3:34 PM EDT Testing performed at: [BN] [facility] [address], [id number], , President: Carter Norton MD Jayjay Allred MD LAB BLOOD ORDERABLES [facility] documented in this encounter Visit Diagnoses Not on filedocumented in this encounter Additional Health Concerns Infection Onset Date Last Indicated Resolved Time COVID-19 Rule Out Comment:04/29/2020 Negative (PAT) 02/20/2020 COVID19 NEGATIVE (PAT) 02/23/2020 02/23/2020 02/23/2020 10:42 AM EDT documented as of this encounter Care Teams Traffic Control Officer Relationship Specialty Start Date End Date Joe Delaney MD [address] [place] [address] PCP - General Internal Medicine 11/17/18 [place] [address] [place] [address] Referring Physician Internal Medicine 11/17/18 Wan Rodríguez [facility] [place] [address] 06/02/19 Rozina Petersen MD Gastroenterology 03/30/20 documented as of this encounter
--- OUTSIDE RECORDS SUMMARY | 2024-12-18 10:52 | XMS_ITS | Encounter Summary ---
Author Organization [facility] Address [address] [place] [address] Phone Care Team Providers Care Business Development Specialist Name Role Phone Joe Delaney MD Primary Care Provider [phone] Twan Davis MD Unavailable [phone] Wan Rodríguze Unavailable [phone] Rozina Petersen MD Unavailable Encounter Details Date Type Department Care Team Description 03/01/2024 Email from [facility] Physical Medicine and Rehabilitation [address] [place] [phone] Jamison Castano MD [address] [place] [address] Social History Tobacco Use Types Packs/Day [...] suspected to have Coronavirus/COVID-19? No / Unsure 02/14/2024 3:39 PM EDT documented as of this encounter Plan of Treatment Upcoming Encounters Date Type Specialty Care Team Description 01/25/2025 Office Visit Internal Medicine Joe Delaney MD [address] [place] [address] 02/03/2025 Office Visit Pain Medicine Patricia Sotelo PA [address] [place] [address] documented as of this encounter Visit Diagnoses Not on filedocumented in this encounter Care Teams Business Development Specialist Relationship Specialty Start Date End Date Joe Delaney MD [address] [place] [address] PCP - General Internal Medicine 11/17/18 Twan Davis MD [address] [place] [address] Referring Physician Internal Medicine 11/17/18 Wan Rodríguez [facility] [place] [address] 06/02/19 Rozina Petersen MD Gastroenterology 03/30/20 documented as of this encounter
[2024-12-18 10:53] VITALS: BMI 28.2
--- NOTE | 2024-12-18 10:53 | A.SPINEOV_ITS ---
Vital Signs 12/18/24 10:53 Height 6 ft 2 in Weight 220 lb BMI 28.2 Intake Visit Reasons: back and neck pain Intake Note: Mr. Nuñez is here today c/o weakness in the legs with some back pain, Numbness on right leg and foot. Mill Beam Fitter Required: No Allergies Penicillins Allergy (Severe, Verified 12/18/24 10:57) Unknown Physical Exam Vital Signs: BMI result Body Mass Index 28.2 Assessment & Plan Assessment & Plan (1) Lumbar radiculopathy: Code(s): M54.16 - Radiculopathy, lumbar region Category: Medical Plan Dear [] Thank you for referring Mr Nuñez to our office today. He is a very nice 74-year-old gentleman who is very active who has had issues with an intermittent but progressively worsening right L5 radiculopathy going down his leg into his foot for the past year or more. Sometime around July or August he was lifting something very heavy and felt something acutely pop in his back and ultimately this had him down in bed for number of weeks. Ever so slowly with a little bit of tincture of time, and some gentle rehab, he was able to get back to being upright walking around again. However, he has had a persistent worsening of the L5 radiculopathy since that time. This is superimposed on a severely arthritic right knee, so it is made getting around quite difficult at times. Specifically going up and downstairs he has to hold on just to try to get himself up flight of stairs. He has tried physical therapy, and it actually feels really good when he is undergoing the treatment, but by the next day it is aggravating him again. 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 He can not take anti-inflammatories because of his history of AFib and his Xarelto. He can take things like Tylenol etc.. He did undergo acupuncture as well. He has not had any cortisone injections in his back. He did have PRP done in his sacroiliac with good response in the past but no dedicated injections into the lumbar area. He comes in today with an MRI done at outside facility showing herniated disc at L1-2 as well as stenosis at L4-5 on the right side. He has sought out advice from other surgeons who are recommending lumbar fusion on his L4-5 disc. PMH: AFib, on Xarelto, he has severe osteoarthritis of the right knee and is anticipating possible knee replacement, hypertension, tonsillectomy. The patient has no history of coronary artery disease, strokes, pulmonary disease, liver or kidney disease, cancer, bleeding disorders or blood clots. Social hx: He does not smoke, drink use any recreational drugs Medications: Xarelto, losartan Allergies: Penicillin Physical exam: Awake alert oriented no acute distress but he does have some trouble standing up straight. His gait is normal, tandem gait walking is normal, Romberg is negative, strength and reflexes in the lower extremities are normal. Imaging review: Lumbar MRI done at an MRI facility in [place] reveals herniated disc at L1-2 central to the left but not compressing any nerves. At L4-5 he has a degenerative disc more on the right side with facet overgrowth and disc bulging causing right L5 compression of the lateral recess. Impression: 74-year-old male presents for evaluation of a chronic right L5 radiculopathy that was superimposed on a severe increase in back pain after lifting something heavy about 4-5 months ago. The back pain has since resolved but the pre-existing radiculopathy seems to have progressed. He did have a herniated disc at L1-2 on his last MRI we suspect that was the source of the back pain. That may have reabsorbed itself, but the overgrowth and arthritis around the right L5 nerve due to combination of disc bulging and facet o vergrowth is fairly clear on the MRI and would explain his right L5 radiculopathy. He has done some basic conservative management and modified his activities. He has been offered a lumbar fusion at another facility. Dr. Tovar and I reviewed his films and believe he would be a good candidate for a right L4-5 hemilaminotomy. We do not think he needs fusion because the back pain has gone away significantly. We reviewed all pertinent risks and benefits. The patient will call us and let us know how he would like to proceed. Thank you for allowing us to care for your patient. The total time spent with this visit with this patient was 45 minutes reviewing history, physical exam, lumbar imaging review, and implementation of treatment plan or further diagnostic testing Abdelrahman Tovar MD,PhD [facility] Coding Level of Care Code New Pt Level 4 (10695) Diagnoses Lumbar radiculopathy M54.16
== END 2024-12-18 12:22 | disposition home or self-care (01) ==
LOC: HO.HNS 10:28
PROVIDERS: Visit Provider Physician Assistant
DX: M54.16 Radiculopathy, lumbar region (principal)
CPT/HCPCS: 99204

== ENCOUNTER → 2025-01-18 13:14 | Outpatient (BNV) | payer BC, SELFPAY | PROVIDERS: Visit Provider Internal Medicine Cardiovascular Disease | DX: Z01.810 Encounter for preprocedural cardiovascular examination (principal) | CPT/HCPCS: 93010 ==

== ENCOUNTER 2025-01-28 05:46 | Day surgery (SDC) | payer MEDICARE, SELFPAY ==
--- NOTE | 2025-01-18 | ECG_ITS ---
Test Reason : PREOP Blood Pressure : */* mmHG Vent. Rate : 63 BPM Atrial Rate : 63 BPM P-R Int : 206 ms QRS Dur : 96 ms QT Int : 386 ms P-R-T Axes : 20 7 12 degrees QTcB Int : 395 ms Normal sinus rhythm Normal ECG No previous ECGs available Referred By: Rosie Paniagua Electronically Signed By: Neil Dove
[2025-01-18 12:23] VITALS: BMI 29.0
[2025-01-18 12:30] VITALS: BP 142/80; PULSE 67; RESP 16; O2SAT 95; BMI 29.0
--- NOTE | 2025-01-18 12:50 | HO.ANESPROP2 ---
Documented by User: Rosie Paniagua NP 01/26/25 14:30 HPI - Anesthesia Eval Consult details Narrative: 74yo M for Right L4-5 Hemilaminotomy, 01/28/25 No recent illness No CP/SOB with gym 3 x weekly - resistance weights, spin class until 07/2024 back injury Afib: On xarelto. Follows Cardiology in [place]. Last office visit 09/2024, stable GERD: Resolved PMFSH Active Problems Active Problems: All Active Problems Lumbar radiculopathy (Acute) Past Medical History Medical History Anxiety BPH (benign prostatic hyperplasia) TIA (transient ischemic attack) Arthritis Thyroid nodule Vega esophagus GERD (gastroesophageal reflux disease) Weakness Numbness Chronic neck pain Back pain On anticoagulant therapy Osteoarthritis HTN (hypertension) Afib Family History Family history of problems with anesthesia: No Surgical History Surgical History Hx of hemorrhoidectomy History of esophagogastroduodenoscopy (EGD) H/O colonoscopy Hx of tonsillectomy History of Problems with Anesthesia: No Social History Social History Are you a primary health care attorney to a significant other at home: No Do you presently have visiting nurse or other home services: No Patient Tobacco Use Status: Never used Tobacco Use of substances other than those prescribed or required for medical reasons: No Have you been hit, kicked, punched, or otherwise hurt by someone within the past year? If so, by whom?: No Are you DNR?: No Advance Directives: No Advance Directives Information Provided: Yes Advance Directives on File: No Poor oral hygiene: Yes Meds Allergies Allergy/AdvReac Type Severity Reaction Status Date / Time Penicillins Allergy Severe Unknown Verified 01/28/25 06:06 amlodipine Allergy Fatigued Verified 01/28/25 06:06 Home Medications ?Medication ?Instructions ?Recorded ?Confirmed ?Last Taken ?Type losartan 50 mg tablet 50 mg PO DAILY 12/18/24 01/18/25 Unknown History rivaroxaban 20 mg tablet (Xarelto) 20 mg PO QPM 12/18/24 01/18/25 01/25/25 History flecainide 50 mg tablet 50 mg PO DAILY PRN Atrial 01/18/25 01/18/25 Unknown History Fibrillation iodine 150 mcg tablet (Kelp 150 mcg PO DAILY 01/18/25 01/18/25 Unknown History (iodine)) magnesium carb,citrate,oxide 300 mg PO DAILY 01/18/25 01/18/25 Unknown History (Magnesium Complex) vitamin D3 125 mcg (5,000 1 cap PO DAILY 01/18/25 01/18/25 Unknown History unit)-vitamin K2 100 mcg capsule Exam Height,Weight and Vital Signs: Height 6 ft 2 in Weight 102.512 kg Last Vital Signs Pulse 67 01/18/25 12:30 Resp 16 01/18/25 12:30 BP 142/80 H 01/18/25 12:30 Pulse Ox 95 01/18/25 12:30 O2 Del Method Room Air 01/18/25 12:30 Pertinent Lab Results Pertinent Lab Results: CBC and BMP 01/2025 from outside facility WNL Narrative Narrative: EKG 01/2025 Vent. Rate : 63 BPM Atrial Rate : 63 BPM P-R Int : 206 ms QRS Dur : 96 ms QT Int : 386 ms P-R-T Axes : 20 7 12 degrees QTcB Int : 395 ms Normal sinus rhythm Normal ECG No previous ECGs available Airway Mallampati Class: II TM Dist: >3cm Neck ROM: Full Loose/Missing/Broken Teeth: Yes (Smile teeth all capped, implants in molars) Heart: RRR Lungs: CTAB Assessment and Plan Assessment Anesthesia Assessment: Anesthesia Plan Discussed and PAT Visit Final Anesthetic Review Family History of Problems with Anesthesia: No History of Problems with Anesthesia: No Documented by User: Jonelle Melo MD 01/28/25 08:06 [facility] Past Medical History Medical History Anxiety BPH (benign prostatic hyperplasia) TIA (transient ischemic attack) Arthritis Thyroid nodule Vega esophagus GERD (gastroesophageal reflux disease) Weakness Numbness Chronic neck pain Back pain On anticoagulant therapy Osteoarthritis HTN (hypertension) Afib Surgical History Surgical History Hx of hemorrhoidectomy History of esophagogastroduodenoscopy (EGD) H/O colonoscopy Hx of tonsillectomy Social History Social History Are you a primary health care attorney to a significant other at home: No Do you presently have visiting nurse or other home services: No Patient Tobacco Use Status: Never used Tobacco Use of substances other than those prescribed or required for medical reasons: No Have you been hit, kicked, punched, or otherwise hurt by someone within the past year? If so, by whom?: No Are you DNR?: No Advance Directives: No Advance Directives Information Provided: Yes Advance Directives on File: No Poor oral hygiene: Yes Meds Allergies Allergy/AdvReac Type Severity Reaction Status Date / Time Penicillins Allergy Severe Unknown Verified 01/28/25 06:06 amlodipine Allergy Fatigued Verified 01/28/25 06:06 Home Medications ?Medication ?Instructions ?Recorded ?Confirmed ?Last Taken ?Type losartan 50 mg tablet 50 mg PO DAILY 12/18/24 01/18/25 Unknown History rivaroxaban 20 mg tablet (Xarelto) 20 mg PO QPM 12/18/24 01/18/25 01/25/25 History flecainide 50 mg tablet 50 mg PO DAILY PRN Atrial 01/18/25 01/18/25 Unknown History Fibrillation iodine 150 mcg tablet (Kelp 150 mcg PO DAILY 01/18/25 01/18/25 Unknown History (iodine)) magnesium carb,citrate,oxide 300 mg PO DAILY 01/18/25 01/18/25 Unknown History (Magnesium Complex) vitamin D3 125 mcg (5,000 1 cap PO DAILY 01/18/25 01/18/25 Unknown History unit)-vitamin K2 100 mcg capsule Exam Airway Mallampati Class: III (protruding upper incisors) Assessment and Plan Final Anesthetic Review NPO: Yes ASA Class: III Final Preanesthetic Review: Meds/Allgs Chart Reviewed, Consent Obtained/Reviewed and Anes Risks/Benef Reviewed Patient Risk: Intermediate Procedure Risk: Intermediate Anesthetic Plan Anesthetic Plan: GA Disposition: Standard PACU
--- OUTSIDE RECORDS SUMMARY | 2025-01-18 13:51 | XMS_ITS | Encounter Summary ---
Author Organization [facility] Address [address] [place] [phone] Phone Care Team Providers Care Glycerin Operator Name Role Phone Joe Delaney MD Primary Care Provider [phone] Twan Davis MD Unavailable [phone] Wan Rodríguez Unavailable [phone] Rozina Petersen MD Unavailable Encounter Details Date Type Department Care Team Description 01/25/2020 Email from [facility] Internal Medicine [address] [place] [phone] [place] [address] [place] [address] [phone] Social History Tobacco Use Types Packs/Day Years [...] Encounters Date Type Specialty Care Team Description 01/22/2025 Office Visit Internal Medicine Joe Delaney MD [address] [place], [place] [id number] 02/03/2025 Office Visit Pain Medicine Patricia Sotelo PA [address] [place], [place] [phone] documented as of this encounter Visit Diagnoses Not on filedocumented in this encounter Additional Health Concerns Infection Onset Date Last Indicated Resolved Time COVID-19 Rule Out Comment:04/29/2020 Negative (PAT) 02/20/2020 COVID19 NEGATIVE (PAT) 02/23/2020 02/23/2020 02/23/2020 10:42 AM EDT documented as of this encounter Care Teams Glycerin Operator Relationship Specialty Start Date End Date Joe Delaney MD [address] [place] [phone] PCP - General Internal Medicine 11/17/18 Twan Davis MD [address] [place] [id number] Referring Physician Internal Medicine 11/17/18 Wan Rodríguez [facility] Vlad Katz [facility] [place] [address] 06/02/19 Rozina Petersen MD Gastroenterology 03/30/20 documented as of this encounter
[2025-01-28] VITALS (7 sets, daily range): BP systolic 116–140; BP diastolic 60–77; PULSE 55–64; RESP 13–20; TEMP 36.4; O2SAT 94–97; BMI 28.5
--- NOTE | ~2025-01-28 | FL_ITS ---
EXAMINATION: FL GUIDANCE ONLY HISTORY: right l4-5 hemilaminotomy COMPARISON: None available. TECHNIQUE: Fluoroscopy time: 0.3 seconds. Cumulative Dose: 2.96 mGy. DAP: 1.0303 mGym2 Images: 1. FINDINGS: A single fluoroscopic spot film of the lumbar spine in the lateral projection demonstrates a probe directed toward the L4-5 intervertebral disc space from a posterior approach. FL/FL guidance in OR IMPRESSION: Fluoroscopy during procedure. Please see procedure report for additional information. Electronically signed by: Rico Bryson MD 01/28/2025 08:28 AM EDT
[2025-01-28] MEDS: Gabapentin 300 MG CAPSULE PO (06:30)
[2025-01-28] MEDS: methocarbamoL 750 MG TABLET PO (06:30)
[2025-01-28] MEDS: vancomycin HCL 1,500 MG in 0.9 % Sodium Chloride 500 ML 333.33 MG IV (06:35)
[2025-01-28] MEDS: Lactated Ringers 1,000 ML 100 ML IVCONT (06:36)
--- NOTE | 2025-01-28 06:55 | MHC.SHP ---
Pre-Procedural Eval Section A - 24 Hr Update-Section A only Date of Service: 01/28/25 Section B - Complete if H&P > 30 days Chief Complaint: Radiculopathy, lumbar region Allergies: Allergies Allergy/AdvReac Type Severity Reaction Status Date / Time Penicillins Allergy Severe Unknown Verified 01/28/25 06:06 amlodipine Allergy Fatigued Verified 01/28/25 06:06 Review of Systems Sugical H&P ROS: Negative: Constitution, Cardiovascular, Respiratory, Neurological, Psychiatric, Hem-Onc, Allergic/Immunologic, Gastrointestinal, Genitourinary, Musculoskeletal, Integumentary, Endocrine and Eyes/Ears/Nose/Throat Exam Surgical H&P Exam: Not Evaluated: HEENT, Not Evaluated: Heart, Not Evaluated: Lungs, Not Evaluated: Extremities, Not Evaluated: Abdomen, Not Evaluated: Skin and Not Evaluated: Neurological Exam Comment: The patient is awake, alert, no acute distress. Proposed surgical incision site is clean, dry, with no signs of recent injury. Plan Diagnosis/Plan: Unchanged I have reviewed the history and physical and performed a pertinent physical examination on my patient. No changes have occurred unless specified. Plan remains the same, right-sided L4-5 lumbar decompression Time Spent With Patient Time: Total time managing care of this patient today __12__ minutes.
[2025-01-28] MEDS: Acetaminophen 1,000 MG/100 ML PIGGYBACK 400 MG IV (08:15)
--- NOTE | 2025-01-28 08:33 | W.PM.OPN ---
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 I have explained the nature, purpose and benefits of the operation. I have discussed the risks and benefit of the operation including possible complications or adverse events with patient/family. Alternative(s) were discussed with the patient with their relative benefits and risks as well as the consequences of not accepting the operation were included in obtaining consent. Surgeon: BEST LINDSEY MD, PHD Procedure Assisted By: Mingo Alvarenga Description of Procedure This 74-year-old male suffering from a right L5 radiculopathy due to L4-5 lateral recess stenosis. The patient was offered a decompression. The procedure complications were explained. The patient was consented. The patient was brought to the operating room and endotracheally intubated. The patient was turned in prone position on the Keith frame. Prep and drape was done followed by timeout. The Physician project administrative assistant provided access. A mid lumbar incision was made followed by release of the paravertebral muscle on the right side to expose the L4-5 lamina and facet joints. An intraoperative x-ray was obtained to confirm the correct level. The microscope was brought in. I took over the procedure. The high-speed drill was used to do a L5 laminotomy until flavum ligament was reached. A #2 Kerrison was used to expand the laminotomy near flush to the pedicles and to include a partial facetectomy. The flavum ligament was opened and resected with a #3 Kerrison to decompress the underlying thecal sac. The flavum ligament was removed to decompress the lateral recess and the exiting L5 nerve root. A long nerve hook could be easily passed along the medial side of the pedicles as a sign of adequate decompression. The microscope was removed. Hemostasis was done. The physician project administrative assistant close the incision in 2 layers. Steri-Strips were used to approximate incision. An OpSite with Tegaderm was used to cover the incision. All sponge needle counts were correct. Patient was extubated and transported in stable is to recovery room. Anesthesia: General Estimated Blood Loss (ml): 15 Complications: None Duration of Surgery: 30 minutes Postoperative Plan: Discharge to home
--- NOTE | 2025-01-28 08:33 | PM.DS ---
DS: Providers Provider Date of Service: 01/28/25 Date of discharge: 01/28/25 Primary care physician: Nonstaff Physician DS: Summary Time Attestation Discharge Coordination Time (in mins): 12 Quality: Safe Use of Opioids Does Pt have an Active Cancer Diagnosis on the Problem List?: No Quality: Stroke Does the patient have a stroke diagnosis?: No Physical Exam Vital Signs: Vital Signs: Last Vital Signs Temp 97.5 F 01/28/25 06:26 Pulse 64 01/28/25 06:26 Resp 15 01/28/25 06:26 BP 127/77 01/28/25 06:26 Pulse Ox 96 01/28/25 06:26 O2 Del Method Room Air 01/28/25 06:26 BMI result Body Mass Index 28.5 Discharge Plan Discharge Patient Disposition: Home, Self-Care Referrals: Physician,Nonstaff [Primary Care Provider, Medical] - 1 Week Discharge Medications: New oxycodone 5 mg tablet 5 mg PO Q6H PRN (Reason: pain) Qty: 30 0RF Rx Instructions: Partial Fill upon patient request. Continued flecainide 50 mg tablet 50 mg PO DAILY PRN (Reason: Atrial Fibrillation) Magnesium Complex 300 mg magnesium Tablet 300 mg PO DAILY vitamin D3-vitamin K2 125 mcg (5,000 unit)-100 mcg Capsule 1 cap PO DAILY Kelp (iodine) 150 mcg Tablet 150 mcg PO DAILY losartan 50 mg tablet 50 mg PO DAILY Held Xarelto 20 mg tablet 20 mg PO QPM Hold Instructions: Resume on 01/30/25. Rx Instructions: must administer with evening meal Discharge Orders: Discharge Order (Routine); Ordered 01/28/25 Ordered By: Mingo De Dios Diet: Advance to usual diet Activity on Discharge: As tolerated Activity Restrictions/Additional Instructions: After your spinal surgery we ask you to observe the following restrictions/guidelines: Activity: It is normal to feel some discomfort as you increase your activity, but that will improve with time. We ask you avoid heavy lifting or acitivities that cause pain. As a general rule, 8lbs is a safe limit for lifting right after surgery. Walk as much as you feel comfortable but not to exhaustion. You will feel extra tired the first few days after surgery. Stay well hydrated. It is OK to walk up and down stairs You may return to driving when you are off narcotics (such as vicodin, oxycodone, dilaudid, etc), and you are back to normal functional capacity. If you have any concerns please check with office before driving. Return to work is specific to each patient and each surgery, so please speak with your doctor/PA at first follow up. Please bring paperwork such as FMLA at that time if you need it filled out. Medications: Please restart your Xarelto 01/30/2025. We recommend you take 1,000mg Tylenol every 8 hours for the first few weeks after surgery, if you do not have any liver issues and can tolerate this medication. Do not exceed 4,000mg daily. We will give you a short supply of narcotics after surgery (usually one weeks worth). If you need more please call the office but do not use more than prescribed. You will need to give our office 48 hours notice if you need narcotics refilled and we do not fill narcotics on weekends or evenings. If you are on a narcotic, it is a good idea to take a stool softener such as colace or senna to avoid constipation If you take blood thinner such as aspirin, Plavix, Coumadin, Effient, Eliquis etc for conditions such as Afib, DVT, Pulmonary embolus, coronary disease, stents etc please speak with your surgeon about specific details as to when you can resume these medications. You can resume NSAIDs on post op day 1 (eg: Motrin, Naproxen, etc). Follow up: Please call the office, , after surgery to arrange a 3 week follow up for wound check. Wound Care: You may remove your dressing on the first day after surgery. ?You may ?leave open to air. Please do not remove the steri strips underneath. they will fall off on their own in one week. IT IS NORMAL FOR THE WOUND TO OOZE OR BE BLOODY FOR A FEW DAYS AFTER SURGERY. ?IF THIS HAPPENS JUST PLACE NEW DRESSING OVER IT TO AVOID STAINING CLOTHES. You may shower on post op day # 1 We ask that you do not let the water soak the wound. If it does get wet, just towel dry lightly. Please do not scrub your incision or place any type of chemical/ointment on the wound. No tub baths, pools or jacuzzis for one month. If you have any leaking or redness from your wound, or fevers, please call the office. Print Language: Bulgarian
[2025-01-28] MEDS: HYDROmorphone HCl 0.5 MG/0.5 ML SYRINGE 0.25 MG IVPUSH ×2 (09:01→09:06)
== END 2025-01-28 09:40 | disposition home or self-care (01) ==
PROVIDERS: Visit Provider Neurological Surgery
PROC: (CPT 63047; principal; 2025-01-28 07:30)
DX: M54.16 Radiculopathy, lumbar region (principal); M48.061 Spinal stenosis, lumbar region without neurogenic claudication; M51.26 Other intervertebral disc displacement, lumbar region; R20.0 Anesthesia of skin; M54.9 Dorsalgia, unspecified; M54.2 Cervicalgia; M17.11 Unilateral primary osteoarthritis, right knee; I10 Essential (primary) hypertension; I48.91 Unspecified atrial fibrillation; Z79.01 Long term (current) use of anticoagulants; Z88.0 Allergy status to penicillin; Z79.899 Other long term (current) drug therapy
CPT/HCPCS: 63047; 93005; J0131; J1100; J1171; J1885; J2003; J2250; J2405; J2704; J3010; J3371

== ENCOUNTER → 2025-01-28 05:46 | Outpatient (BNV) | payer MEDICARE, SELFPAY | PROVIDERS: Visit Provider Neurological Surgery | DX: M48.062 Spinal stenosis, lumbar region with neurogenic claudication (principal) | CPT/HCPCS: 63047; 99499 ==

== ENCOUNTER 2025-04-01 10:46 | Outpatient (AMB) | payer MEDICARE, SELFPAY ==
--- NOTE | 2025-04-01 10:54 | A.SPINEOV_ITS ---
Intake Visit Reasons: 2nd post op Intake Note: Mr. Casas is here today for his 2nd post op. Hurl Shaker Required: No Allergies Penicillins Allergy (Severe, Verified 02/18/25 10:29) Unknown amlodipine Allergy (Verified 02/18/25 10:29) Fatigued Assessment & Plan Assessment & Plan (1) Lumbar radiculopathy: Code(s): M54.16 - Radiculopathy, lumbar region Category: Medical Plan Procedure: Right L4-5 Laminotomy, Partial facetectomy and foraminotomy Fred is a pleasant 74-year-old male who comes in today for his 2nd postoperative visit after having a right-sided L4-5 lumbar decomp[address] completed by Dr[address] Tovar. He reports modest improvement of his pain which he rates it about 20-30%. Functionally, he reports he is able to complete the bulk of his activities of daily living, in his able to do meaningful daily tasks such as running the tractor that he has around his property, and run his chainsaw. He does express some frustration, and was hopeful he would get more benefit from the surgery. We discussed the postoperative healing course, and I answered all questions that he had. No new neurological deficits. The patient ambulates well and rises from a seated position without difficulty. His posterior incision site is closed and well healed. I would like to send Fred for a course of physical therapy see if we can work out any residual musculoskeletal pain that he may be having related to the operation. If he continues to experience fairly significant right-sided pain, after physical therapy, I would like him to follow up with Dr. Tovar in clinic thereafter. It should also be noted that he does live in [facility], and drives rather far to come and see us. Mingo Tovar MD,PhD [facility] Orders: Orders PT Evaluation and Treatment Today M54.16 - Radiculopathy, lumbar region Coding Level of Care Code Global (26273) Diagnoses Lumbar radiculopathy M54.16
--- OUTSIDE RECORDS SUMMARY | 2025-04-01 12:12 | XMS_ITS | Encounter Summary ---
Author Organization [facility] Address [address] [place] [address] Phone Care Team Providers Care Director Social Welfare Name Role Phone Joe Delaney MD Primary Care Provider [phone] Twan Davis MD Unavailable [phone] Wan Rodríguez Unavailable [phone] Rozina Petersen MD Unavailable Encounter Details Date Type Department Care Team Description 11/03/2022 Email from [facility] Internal Medicine [address] [place] [phone] Joe Delaney MD [address] [place] [address] [phone] Social History Tobacco Use Types Packs/Day Years [...] Encounters Date Type Specialty Care Team Description 05/25/2025 Office Visit Internal Medicine Joe Delaney MD [address] [place], [place] [phone] 08/03/2025 Office Visit Pain Medicine Patricia Sotelo PA [address] [place], [place] [phone] documented as of this encounter Visit Diagnoses Not on filedocumented in this encounter Care Teams Director Social Welfare Relationship Specialty Start Date End Date Joe Delaney MD [address] [place], [place] [phone] PCP - General Internal Medicine 11/17/18 Twan Davis MD [address] [place] [address] Referring Physician Internal Medicine 11/17/18 Wan Rodríguez [facility] [place] [address] 06/02/19 Rozina Petersen MD Gastroenterology 03/30/20 documented as of this encounter
--- OUTSIDE RECORDS SUMMARY | 2025-04-01 12:12 | XMS_ITS | Encounter Summary ---
Author Organization [facility] Address [address] [place] [address] Phone Care Team Providers Care Wool Shearer Name Role Phone Joe Delaney MD Primary Care Provider [phone] Twan Davis MD Unavailable [phone] Wan Rodríguez Unavailable [phone] Rozina Petersen MD Unavailable Encounter Details Date Type Department Care Team Description 11/12/2019 Email from [facility] Initial Department [address] [place] [address] Mychart, Generic Provider Social History Tobacco [...] Visit Internal Medicine Joe Delaney MD [address] [place], [place] [phone] 08/03/2025 Office Visit Pain Medicine Patricia Sotelo PA [address] [place] [address] documented as of this encounter Visit Diagnoses Not on filedocumented in this encounter Additional Health Concerns Infection Onset Date Last Indicated Resolved Time COVID-19 Rule Out Comment:04/29/2020 Negative (PAT) 02/20/2020 COVID19 NEGATIVE (PAT) 02/23/2020 02/23/2020 02/23/2020 10:42 AM EDT documented as of this encounter Care Teams Wool Shearer Relationship Specialty Start Date End Date Joe Delaney MD [address] [place] [address] PCP - General Internal Medicine 11/17/18 Twan Davis MD [address] [place] [address] Referring Physician Internal Medicine 11/17/18 Wan Rodríguez [facility] [place] [address] 06/02/19 Rozina Petersen MD Gastroenterology 03/30/20 documented as of this encounter
--- OUTSIDE RECORDS SUMMARY | 2025-04-01 12:12 | XMS_ITS | Encounter Summary ---
Author Organization [facility] Address [address] [place] [address] Phone Care Team Providers Care Cloth Cutting Machine Operator Name Role Phone Joe Delaney MD Primary Care Provider [phone] Twan Davis MD Unavailable [phone] Wan Rodríguez Unavailable [phone] Rozina Petersen MD Unavailable Encounter Details Date Type Department Care Team Description 11/30/[address] [facility] Internal Medicine [address] [place] [phone] [place] [address] [place] [address] [phone] Social History Tobacco Use Types Packs/Day Years [...] Visit Internal Medicine Joe Delaney MD [address] [place], [place] [phone] 08/03/2025 Office Visit Pain Medicine Patricia Sotelo PA [address] [place], [place] [phone] documented as of this encounter Visit Diagnoses Not on filedocumented in this encounter Additional Health Concerns Infection Onset Date Last Indicated Resolved Time COVID-19 Rule Out Comment:04/29/2020 Negative (PAT) 02/20/2020 COVID19 NEGATIVE (PAT) 02/23/2020 02/23/2020 02/23/2020 10:42 AM EDT documented as of this encounter Care Teams Cloth Cutting Machine Operator Relationship Specialty Start Date End Date Joe Delaney MD [address] [place] [address] PCP - General Internal Medicine 11/17/18 Twan Davis MD [address] [place] [address] Referring Physician Internal Medicine 11/17/18 Wan Rodríguez [facility] Vlad Katz [facility] [address] 06/02/19 Rozina Petersen MD Gastroenterology 03/30/20 documented as of this encounter
--- OUTSIDE RECORDS SUMMARY | 2025-04-01 12:12 | XMS_ITS | Encounter Summary ---
Author Organization [facility] Address [address] [place] [address] Phone Care Team Providers Care Senior Network Administrator Name Role Phone Joe Delaney MD Primary Care Provider Twan Davis MD Unavailable [phone] Wan Rodríguez Unavailable [phone] Rozina Petersen MD Unavailable Encounter Details Date Type Department Care Team Description 01/13/2025 Orders Only Internal Medicine [address] [place] [phone] [place] [address] [place] [address] [phone] History of hyperlipidemia; Abnormal laboratory test result; Essential hypertension; GERD without esophagitis Social History [...] Visit Internal Medicine Joe Delaney MD [address] [place], [place] [phone] 08/03/2025 Office [place] [address] [place] [address] documented as of this encounter Procedures Procedure Name Priority Date/Time Associated Diagnosis Comments CBC Routine 01/13/2025 8:57 AM EDT GERD without esophagitis LACTATE DEHYDROGENASE Routine 01/13/2025 8:57 AM EDT Abnormal laboratory test result LIPID PANEL Routine 01/13/2025 8:57 AM EDT History of hyperlipidemia COMPREHENSIVE METABOLIC PANEL Routine 01/13/2025 8:57 AM EDT Essential hypertension documented in this encounter Results * CBC (01/13/2025 8:57 AM EDT) WBC 5.8 4.8 - 10.8 10*3/mm3 [facility] RBC 5.6 4.7 - 6.1 10*6/mm3 [facility] Hemoglobin 16.0 14.0 - 18.0 g/dl [facility] Hematocrit 47.1 42.0 - 52.0 % [facility] MCV 84.90 80.00 - 94.00 fL [facility] MCH 28.8 26.0 - 34.0 pg [facility] MCHC 34.0 32.0 - 36.0 g/dl [facility] Platelets 270 130 - 400 10*3/mm3 [facility] MPV 9.7 6.4 - 13.3 fL [facility] RDW 13.0 9.1 - 17.5 % [facility] Neutrophils % 58.30 43.10 - 76.10 % [facility] Lymphocytes Relative 31.90 12.90 - 43.90 % [facility] Monocytes Relative 7.50 4.90 - 12.50 % [facility] Eosinophils Relative 1.50 0.00 - 5.00 % [facility] Basophils Relative 0.50 0.00 - 2.00 % [facility] Neutrophils Absolute 3.39 1.60 - 6.70 10*3/mm3 [facility] Lymphocytes Absolute 1.86 0.80 - 3.00 10*3/mm3 [facility] Monocytes Absolute 0.44 0.40 - 0.80 10*3/mm3 [facility] Eosinophils Absolute 0.09 0.00 - 0.50 10*3/mm3 [facility] Basophils Absolute 0.03 0.00 - 1.00 10*3/mm3 [facility] Immature Granulocytes 0.30 0.00 - 0.50 % [facility] Immature Grans (Abs) 0.02 0.00 - 0.02 10*3/uL [facility] Blood 01/13/2025 8:57 AM EDT 01/13/2025 9:13 AM EDT Joe Delaney MD LAB BLOOD ORDERABLES FREQUENCY [facility] [place], [place] [phone] * (ABNORMAL) Comprehensive metabolic panel (01/13/2025 8:57 AM EDT) Pathologist [facility] GLUCOSE 85 70 - 105 mg/dL [facility] Urea nitrogen 13 6 - 20 mg/dL [facility] Comment: Please note reference range update effective 05-11-2024 Creatinine 1.0 0.6 - 1.3 mg/dl [facility] Calcium 10.5(H) 8.6 - 10.3 mg/dL [facility] Total Protein 7.2 6.4 - 8.9 g/dL [facility] Albumin 4.5 3.5 - 5.7 g/dL [facility] Bilirubin, Total 0.65 0.30 - 1.00 mg/dL [facility] Alk Phos, Total 73 34 - 104 U/L [facility] AST 23 15 - 39 U/L [facility] Sodium 142 136 - 145 mEq/L [facility] Potassium 4.3 3.5 - 5.1 mEq/L [facility] Chloride 105 98 - 107 mEq/L [facility] CO2 30.0 21.0 - 31.0 mmol/L [facility] ALT 24 7 - 52 U/L [facility] Anion Gap 11 5 - 19 [facility] BUN/Creatinine Ratio 12.9 6.0 - 20.0 [facility] GFR > 60 >60 ml/min/1.7 3mGF [facility] Comment:If patient is Radha n Slovak multiply result by 1.212 Alb/Glob ratio 1.6 1.2 - 1.8 [facility] Globulin 2.7 1.6 - 3.9 g/dl [facility] Blood 01/13/2025 8:57 AM EDT 01/13/2025 9:13 AM EDT Joe Delaney MD LAB BLOOD ORDERABLES Performing Organization Address City/[facility] Co de Phone Number [facility] ORCHDAVID [address] [facility] [place], [place] [phone] * (ABNORMAL) Lactate dehydrogenase (01/13/2025 8:57 AM EDT) LD 123(L) 140 - 271 IU/L [facility] Blood 01/13/2025 8:57 AM EDT 01/13/2025 9:13 AM EDT Joe Delaney MD LAB BLOOD ORDERABLES Performing Organization Address [facility] de Phone Number [facility] DIAZ [address] [facility] [place], [place] [phone] * Lipid panel (01/13/2025 8:57 AM EDT) Pathologist [facility] Cholesterol 174 136 - 200 mg/dl [facility] Comment: Cholesterol Risk Levels Recommended under 200mg/dl Borderline 200-239mg/dl High Risk above 240mg/dl Triglycerides 99 48 - 200 mg/dl [facility] HDL 48 35 - 92 mg/dl [facility] LDL Cholesterol 107 0 - 140 mg/dl [facility] Total Xeq-BIY-Kpfg (LDL+VLDL) 126.5 30.0 - 130.0 mg/dl [facility] Chol/HDL Ratio 3.7 3.4 - 24.0 [facility] Blood 01/13/2025 8:57 AM EDT 01/13/2025 9:13 AM EDT Joe Delaney MD LAB BLOOD ORDERABLES Performing Organization Address City/[facility] Co de Phone Number NITAG JOE [address] [facility] [place] [phone] documented in this encounter Visit Diagnoses Diagnosis History of hyperlipidemia Abnormal laboratory test result Other abnormal clinical finding Essential hypertension Unspecified essential hypertension GERD without esophagitis Esophageal reflux documented in this encounter Care Teams Senior Network Administrator Relationship Specialty Start Date End Date Joe Delaney MD [address] [place], [place] [phone] PCP - General Internal Medicine 11/17/18 [place] [address] [place] [address] Referring Physician Internal Medicine 11/17/18 Wan Rodríguez [facility] [place] [address] 06/02/19 Rozina Petersen MD Gastroenterology 03/30/20 documented as of this encounter
--- OUTSIDE RECORDS SUMMARY | 2025-04-01 12:12 | XMS_ITS | Encounter Summary ---
Author Organization [facility] Address [address] [place] [address] Phone Care Team Providers Care Erecting Engineer Name Role Phone Joe Delaney MD Primary Care Provider [phone] Twan Davis MD Unavailable [phone] Wan Rodríguez Unavailable [phone] Rozina Petersen MD Unavailable Encounter Details Date Type Department Care Team Description 11/12/2022 Email from [employer] Physical Medicine and Rehabilitation [address] [place] [phone] Patricia Sotelo PA [address] [place] [address] Social History Tobacco Use Types Packs/Day [...] Office Visit [place] [address] [place] [address] 08/03/2025 Office Visit Pain Medicine Patricia Sotelo PA [address] [place] [address] documented as of this encounter Visit Diagnoses Not on filedocumented in this encounter Care Teams Erecting Engineer Relationship Specialty Start Date End Date Joe Delaney MD [address] [place] [address] PCP - General Internal Medicine 11/17/18 Twan Davis MD [address] [place] [address] Referring Physician Internal Medicine 11/17/18 Wan Rodríguez [facility] [place] [address] 06/02/19 Rozina Petersen MD Gastroenterology 03/30/20 documented as of this encounter
--- OUTSIDE RECORDS SUMMARY | 2025-04-01 12:12 | XMS_ITS | Encounter Summary ---
Author Organization [facility] Address [address] [place] [address] Phone Care Team Providers Care Loan Representative Name Role Phone Joe Delaney MD Primary Care Provider [phone] Twan Davis MD Unavailable [phone] Wan Rodríguez Unavailable [phone] Rozina Petersen MD Unavailable Encounter Details Date Type Department Care Team Description 10/13/2019 Email from [facility] Internal Medicine [address] [place] [phone] Joe Delaney MD [address] [place] [address] [phone] Social History Tobacco Use Types Packs/Day Years [...] Internal Medicine Joe Delaney MD [address] [place], [place] [phone] 08/03/2025 Office Visit Pain Medicine Patricia Sotelo PA [address] [place], [place] [phone] documented as of this encounter Visit Diagnoses Not on filedocumented in this encounter Additional Health Concerns Infection Onset Date Last Indicated Resolved Time COVID-19 Rule Out Comment:04/29/2020 Negative (PAT) 02/20/2020 COVID19 NEGATIVE (PAT) 02/23/2020 02/23/2020 02/23/2020 10:42 AM EDT documented as of this encounter Care Teams Loan Representative Relationship Specialty Start Date End Date Joe Delaney MD [address] [place] [address] PCP - General Internal Medicine 11/17/18 Twan Davis MD [address] [place] [address] Referring Physician Internal Medicine 11/17/18 Wan Rodríguez [facility] Vlad Katz [facility] [place] [address] 06/02/19 Rozina Petersen MD Gastroenterology 03/30/20 documented as of this encounter
--- OUTSIDE RECORDS SUMMARY | 2025-04-01 12:12 | XMS_ITS | Encounter Summary ---
Author Organization [facility] Address [address] [place] [address] Phone Care Team Providers Care Railroad Yard Worker Name Role Phone Joe Delaney MD Primary Care Provider [phone] Twan Davis MD Unavailable [phone] Wan Rodríguez Unavailable [phone] Rozina Petersen MD Unavailable Encounter Details Date Type Department Care Team Description 10/06/2019 Orders Only Internal Medicine [address] [place] [phone] Joe Delaney MD [address] [place], [place] [phone] Lymphadenitis Social History Tobacco Use Types Packs/Day [...] Visit Internal Medicine Joe Delaney MD [address] [place], [place] [phone] 08/03/2025 Office Visit Pain Medicine Patricia Sotelo PA [address] [place], [place] [phone] documented as of this encounter Procedures Procedure Name Priority Date/Time Associated Diagnosis Comments STEVEN-MCKEON VIRUS EARLY ANTIGEN ANTIBODY, IGG Routine 10/06/2019 11:21 AM EST MONONUCLEOSIS SCREEN Routine 10/06/2019 11:21 AM EST Lymphadenitis CBC Routine 10/06/2019 11:21 AM EST Lymphadenitis C-REACTIVE PROTEIN Routine 10/06/2019 11 :21 AM EST Lymphadenitis COMPREHENSIVE METABOLIC PANEL Routine 10/06/2019 11:21 AM EST Lymphadenitis documented in this encounter Results * (ABNORMAL) Steven-Mckeon virus early antigen antibody, IgG (10/06/2019 11:21 AM EST) EBV VCA IgM <36.0 0.0 - 35.9 U/mL [facility] Comment: Negative <36.0 Equivocal 36.0 - 43.9 Positive >43.9 EBV VCA IgG 457.0(H) 0.0 - 17.9 U/mL [facility] Comment: Negative <18.0 Equivocal 18.0 - 21.9 Positive >21.9 EBV Early Antigen Ab, IgG 528.0(H) 0.0 - 17.9 U/mL [facility] Comment: Negative <18.0 Equivocal 18.0 - 21.9 Positive >21.9 INTERPRETATION Comment [facility] Comment: EBV Interpretation Chart [place]: Antibody Present + Antibody Absent - Interpretation VCA-IgM VCA-IgG EBNA-IgG No previous infection/ - - - Susceptible Primary infection (new + + - or recent) Past Infection +or- + + See comment below* + - - *Results indicate infection with EBV at some time however cannot predict the timing of the infection since antibodies to EBNA usually develop after primary infection or, alternatively, approximately 5-10% of patients with EBV never develop antibodies to EBNA. Blood 10/06/2019 11:2 1 AM EST 10/06/2019 11:26 AM EST Narrative [facility] - 10/07/2019 4:11 PM EST Testing performed at: [RN] [facility], [address] [place] [address], [place], [place],[address], , Sole Molder: Lynn Dukes MD Joe Delaney MD LAB [...] Delaney MD LAB BLOOD ORDERABLES FREQUENCY [address] [place], [place] [phone] * (ABNORMAL) Comprehensive metabolic panel (10/06/2019 11:21 [...] [facility] Comment:If patient is Radha n Fijian multiply result by 1.212 Alb/Glob ratio 2.1(H) 1.2 - 1.8 [facility] Globulin 2.1 1.6 - 3.9 g/dL [facility] Blood 10/06/2019 11:2 1 AM EST 10/06/2019 11:26 AM EST Joe Delaney MD LAB BLOOD ORDERABLES AP DIAZ [address] [place], [place] [phone] * Mononucleosis screen (10/06/2019 11:21 AM EST) Monospot NEGATIVE Negative [facility] Blood 10/06/2019 11:2 1 AM EST 10/06/2019 11:26 AM EST Joe Delaney MD LAB BLOOD ORDERABLES Performing Organization Address [facility] Co de Phone Number [facility] [address] [place], [place] [phone] * C-reactive protein (10/06/2019 11:21 AM EST) CRP 0.10 0.10 - 0.90 mg/dL [facility] Blood 10/06/2019 11:2 1 AM EST 10/06/2019 11:26 AM EST Joe Delaney MD LAB BLOOD ORDERABLES Performing Organization Address [facility] de Phone Number [facility] [address] [place], [place] [phone] documented in this encounter Visit Diagnoses Diagnosis Lymphadenitis Lymphadenitis, unspecified, except mesenteric documented in this encounter Additional Health Concerns Infection Onset Date Last Indicated Resolved Time COVID-19 Rule Out Comment:04/29/2020 Negative (PAT) 02/20/2020 COVID19 NEGATIVE (PAT) 02/23/2020 02/23/2020 02/23/2020 10:42 AM EDT documented as of this encounter Care Teams Railroad Yard Worker Relationship Specialty Start Date End Date Joe Delaney MD [address] [place] [address] PCP - General Internal Medicine 11/17/18 [place] [address] [place] [address] Referring Physician Internal Medicine 11/17/18 Wan Rodríguez [facility] Vlad Katz [facility] Urology [place] [phone] 06/02/19 Rozina Petersen MD Gastroenterology 03/30/20 documented as of this encounter
--- OUTSIDE RECORDS SUMMARY | 2025-04-01 12:12 | XMS_ITS | Encounter Summary ---
Author Organization [facility] Address [address] [place] [address] Phone Care Team Providers Care Pump Technician Name Role Phone Joe Delaney MD Primary Care Provider [phone] Twan Davis MD Unavailable [phone] Wan Rodríguez Unavailable [phone] Rozina Petersen MD Unavailable Encounter Details Date Type Department Care Team Description 01/06/2020 Orders Only Hematology/Oncology [address] [place] [phone] Param Scott Ud, MD [address] [place] [address] Lymphadenopathy, axillary Social History Tobacco Use [...] Visit Internal Medicine Joe Delaney MD [address] [place] [address] 08/03/2025 Office Visit Pain Medicine Patricia Sotelo PA [address] [place] [address] documented as of this encounter [...] LAB BLOOD ORDERABLES FREQUENCY Performing Organization Address City/[facility]/ZIP Co de Phone Number [facility] DIAZ [address] [facility]. [place], [place] [phone] * Immunofixation Serum (01/06/2020 4:32 PM EDT) Pathologist [facility] Immunofixation Result, Serum SEE COMMENT [facility] Comment:No Monoclonal Parapr oteins identified on Immunofixation Electrophoresis Blood 01/06/2020 4:32 PM EDT 01/06/2020 4:32 PM EDT Param Scott MD LAB BLOOD ORDERABLES Performing Organization Address [facility] Co de Phone Number [facility] JOE [address] [facility]. [place], [place] [phone] * Kalapana lambda free light chains (01/06/2020 4:32 PM EDT) Ig [place] Free Light Chain 11.4 3.3 - 19.4 mg/L [facility] Ig Lambda Free Light Chain 9.9 5.7 - 26.3 mg/L [facility] Kalapana/Lambda Ratio,S 1.15 0.26 - 1.65 [facility] Blood 01/06/2020 4:32 PM EDT 01/06/2020 4:32 PM EDT Narrative [facility] - 01/07/2020 4:14 PM EDT Testing performed at: [RN] [facility] [address],[address], , Donations Attendant: Lynn Dukes MD Param Scott MD LAB BLOOD ORDERABLES Performing Organization Address [facility] Co de Phone Number [facility] * Lactate dehydrogenase (01/06/2020 4:32 PM EDT) LD 141 140 - 271 IU/L [facility] Blood 01/06/2020 4:32 PM EDT 01/06/2020 4:32 PM EDT Param Scott MD LAB BLOOD ORDERABLES Performing Organization Address [facility] Co ks Phone Number [facility] [address] [facility] [place], [place] [phone] * Sedimentation rate, erythrocyte (01/06/2020 4:32 PM EDT) Pathologist [facility] Sed Rate 2 0 - 9 mm/hr [facility] Blood 01/06/2020 4:32 PM EDT 01/06/2020 4:32 PM EDT Param Scott MD LAB BLOOD ORDERABLES Performing Organization Address [facility] Co de Phone Number [facility] [address] [facility]. [place], [place] [phone] * C-reactive protein (01/06/2020 4:32 PM EDT) CRP 0.30 0.10 - 0.90 mg/dL [facility] Blood 01/06/2020 4:32 PM EDT 01/06/2020 4:32 PM EDT Param Scott MD LAB BLOOD ORDERABLES Performing Organization Address [facility] Co de Phone Number [facility] [address] [facility] [place], [place] [phone] documented in this encounter Visit Diagnoses Diagnosis Lymphadenopathy, axillary documented in this encounter Additional Health Concerns Infection Onset Date Last Indicated Resolved Time COVID-19 Rule Out Comment:04/29/2020 Negative (PAT) 02/20/2020 COVID19 NEGATIVE (PAT) 02/23/2020 02/23/2020 02/23/2020 10:42 AM EDT documented as of this encounter Care Teams Pump Technician Relationship Specialty Start Date End Date Joe Delaney MD [address] [place] [address] PCP - General Internal Medicine 11/17/18 [place] [address] [place] [address] Referring Physician Internal Medicine 11/17/18 Wan Rodríguez [facility][Note 2] Gianna [facility] [place] [address] 06/02/19 Rozina Petersen MD Gastroenterology 03/30/20 documented as of this encounter
--- OUTSIDE RECORDS SUMMARY | 2025-04-01 12:12 | XMS_ITS | Encounter Summary ---
Author Organization [facility] Address [address] [place] [address] Phone Care Team Providers Care Draw Bench Operator Name Role Phone Joe Delaney MD Primary Care Provider [phone] Twan Davis MD Unavailable [phone] Wan Rodríguez Unavailable [phone] Rozina Petersen MD Unavailable Encounter Details Date Type Department Care Team Description 12/17/2019 Email from [facility] Otolaryngology [address] [place] [address] Kyler Gr MD [address] [place], [place] [id number] Social History Tobacco Use Types Packs/Day Years [...] Visit Internal Medicine Joe Delaney MD [address] [place] [address] 08/03/2025 Office Visit Pain Medicine Patricia Sotelo PA [address] [place], [place] [phone] documented as of this encounter Visit Diagnoses Not on filedocumented in this encounter Additional Health Concerns Infection Onset Date Last Indicated Resolved Time COVID-19 Rule Out Comment:04/29/2020 Negative (PAT) 02/20/2020 COVID19 NEGATIVE (PAT) 02/23/2020 02/23/2020 02/23/2020 10:42 AM EDT documented as of this encounter Care Teams Draw Bench Operator Relationship Specialty Start Date End Date Joe Delaney MD [address] [place] [address] [phone] PCP - General Internal Medicine 11/17/18 [place] [address] [place] [address] Referring Physician Internal Medicine 11/17/18 Wan Rodríguez [facility] Vlad Katz [facility] Urology [place] [phone] 06/02/19 Rozina Petersen MD Gastroenterology 03/30/20 documented as of this encounter
--- OUTSIDE RECORDS SUMMARY | 2025-04-01 12:12 | XMS_ITS | Encounter Summary ---
Author Organization [facility] Address [address] [place] [address] Phone Care Team Providers Care Patient Representative Name Role Phone Joe Delaney MD Primary Care Provider [phone] Twan Davis MD Unavailable [phone] Wan Rodríguez Unavailable [phone] Rozina Petersen MD Unavailable Encounter Details Date Type Department Care Team Description 10/26/2019 Email from [facility] Endocrinology [address] [place] [phone] Jayjay Allred MD [address] [place] [address] [phone] Social History Tobacco Use Types Packs/Day Years [...] Visit Internal Medicine Joe Delaney MD [address] [place] [address] 08/03/2025 Office Visit Pain Medicine Patricia Sotelo PA [address] [place], [place] [phone] documented as of this encounter Visit Diagnoses Not on filedocumented in this encounter Additional Health Concerns Infection Onset Date Last Indicated Resolved Time COVID-19 Rule Out Comment:04/29/2020 Negative (PAT) 02/20/2020 COVID19 NEGATIVE (PAT) 02/23/2020 02/23/2020 02/23/2020 10:42 AM EDT documented as of this encounter Care Teams Patient Representative Relationship Specialty Start Date End Date Joe Delaney MD [address] [place] [address] PCP - General Internal Medicine 11/17/18 Twan Davis MD [address] [place] [address] Referring Physician Internal Medicine 11/17/18 Wan Rodríguez [facility] Vlad Katz [facility] [place] [address] 06/02/19 Rozina Petersen MD Gastroenterology 03/30/20 documented as of this encounter
--- OUTSIDE RECORDS SUMMARY | 2025-04-01 12:12 | XMS_ITS | Encounter Summary ---
Author Organization [facility] Address [address] [place] [address] Phone Care Team Providers Care Physical Therapy Technician Name Role Phone Joe Delaney MD Primary Care Provider [phone] Twan Davis MD Unavailable [phone] Wan Rodríguez Unavailable [phone] Rozina Petersen MD Unavailable Encounter Details Date Type Department Care Team Description 10/20/2024 Email from [facility] Internal Medicine [address] [place] [phone] Joe Delaney MD [address] [place] [address] Social History Tobacco Use Types Packs/Day [...] Office Visit Internal Medicine Joe Delaney MD [address] [place] [address] 08/03/2025 Office Visit Pain Medicine Patricia Sotelo PA [address] [place], [place] [phone] documented as of this encounter Visit Diagnoses Not on filedocumented in this encounter Care Teams Physical Therapy Technician Relationship Specialty Start Date End Date Joe Delaney MD [address] [place] [address] PCP - General Internal Medicine 11/17/18 Twan Davis MD [address] [place] [address] Referring Physician Internal Medicine 11/17/18 Wan Rodríguez [facility] [place] [address] 06/02/19 Rozina Petersen MD Gastroenterology 03/30/20 documented as of this encounter
--- OUTSIDE RECORDS SUMMARY | 2025-04-01 12:12 | XMS_ITS | Encounter Summary ---
Author Organization [facility] Address [address] [place] [address] Phone Care Team Providers Care Child Welfare Specialist Name Role Phone Joe Delaney MD Primary Care Provider Twan Davis MD Unavailable [phone] Wan Rodríguez Unavailable [phone] Rozina Petersen MD Unavailable Encounter Details Date Type Department Care Team Description 12/10/2019 Orders Only Internal Medicine [address] [place] [phone] Joe Delaney MD [address] [place] [address] [phone] Arthralgia, unspecified joint; Tick bite, sequela Social [...] Visit Internal Medicine Joe Delaney MD [address] [place] [address] [phone] 08/03/2025 Office [place] [address] [place] [address] documented as of this encounter Procedures [...] developed and its performance characteristics determined by [facility]. It has not been cleared or approved by the Food and Drug Administration. The FDA has determined that such clearance or approval is not necessary. Blood 12/10/2019 2:13 PM EDT 12/10/2019 2:14 PM EDT Narrative [facility] - 12/16/2019 6:12 AM EDT Testing performed at: [BN] [address], [id number], , Workforce Management Manager:Dawson Galindo MD Joe Delaney MD LAB BLOOD ORDERABLES [facility] documented in this encounter Visit Diagnoses Diagnosis Arthralgia, unspecified joint Tick bite, sequela documented in this encounter Additional Health Concerns Infection Onset Date Last Indicated Resolved Time COVID-19 Rule Out Comment:04/29/2020 Negative (PAT) 02/20/2020 COVID19 NEGATIVE (PAT) 02/23/2020 02/23/2020 02/23/2020 10:42 AM EDT documented as of this encounter Care Teams Child Welfare Specialist Relationship Specialty Start Date End Date Joe Delaney MD [address] [place] [address] PCP - General Internal Medicine 11/17/18 Twan Davis MD [address] [place] [address] Referring Physician Internal Medicine 11/17/18 Wan Rodríguez [facility] [place] [address] 06/02/19 Rozina Petersen MD Gastroenterology 03/30/20 documented as of this encounter
--- OUTSIDE RECORDS SUMMARY | 2025-04-01 12:12 | XMS_ITS | Encounter Summary ---
Author Organization [facility] Address [address] [place] [address] Phone Care Team Providers Care Hospitalist Name Role Phone Joe Delaney MD Primary Care Provider [phone] Twan Davis MD Unavailable [phone] Wan Rodríguez Unavailable [phone] Rozina Petersen MD Unavailable Encounter Details Date Type Department Care Team Description 09/10/2022 Email from [facility] [address] [place] [phone] Patricia Sotelo PA [address] [place] [address] Social History Tobacco Use Types Packs/Day [...] Office Visit Internal Medicine Joe Delaney MD [address] [place] [address] 08/03/2025 Office Visit Pain Medicine Patricia Sotelo PA [address] [place], [place] [phone] documented as of this encounter Visit Diagnoses Not on filedocumented in this encounter Care Teams Hospitalist Relationship Specialty Start Date End Date Joe Delaney MD [address] [place] [address] PCP - General Internal Medicine 11/17/18 Twan Davis MD [address] [place] [address] Referring Physician Internal Medicine 11/17/18 Wan Rodríguez [facility] [place] [address] 06/02/19 Rozina Petersen MD Gastroenterology 03/30/20 documented as of this encounter
--- OUTSIDE RECORDS SUMMARY | 2025-04-01 12:12 | XMS_ITS | Encounter Summary ---
Author Organization [facility] Address [address] [place] [address] Phone Care Team Providers Care Tool Lapper Hand Name Role Phone Joe Delaney MD Primary Care Provider [phone] Twan Davis MD Unavailable [phone] Wan Rodríguez Unavailable [phone] Rozina Petersen MD Unavailable Encounter Details Date Type Department Care Team Description 11/19/2022 Email from [facility] Internal Medicine [address] [place] [phone] Joe Delaney MD [address] [place] [address] Social History Tobacco Use Types Packs/Day [...] Visit Internal Medicine Joe Delaney MD [address] [place] [address] 08/03/2025 Office Visit Pain Medicine Patricia Sotelo PA [address] [place], [place] [phone] documented as of this encounter Visit Diagnoses Not on filedocumented in this encounter Care Teams Tool Lapper Hand Relationship Specialty Start Date End Date Joe Delaney MD [address] [place] [address] PCP - General Internal Medicine 11/17/18 Twan Davis MD [address] [place] [address] Referring Physician Internal Medicine 11/17/18 Wan Rodríguez [facility] [place] [address] 06/02/19 Rozina Petersen MD Gastroenterology 03/30/20 documented as of this encounter
--- OUTSIDE RECORDS SUMMARY | 2025-04-01 12:12 | XMS_ITS | Encounter Summary ---
Author Organization [facility] Address [address] [place] [address] Phone Care Team Providers Care Rig Welder Name Role Phone Joe Delaney MD Primary Care Provider [phone] Twan Davis MD Unavailable [phone] Wan Rodríguez Unavailable Rozina Petersen MD Unavailable Encounter Details Date Type Department Care Team Description 12/14/2019 Email from [facility] Otolaryngology [address] [place] [address] Kyler Gr MD [address] [place], [place] [phone] Social History Tobacco Use Types Packs/Day Years [...] Visit Internal Medicine Joe Delaney MD [address] [place] [address] 08/03/2025 Office Visit Pain Medicine Patricia Sotelo PA [address] [place], [place] [phone] documented as of this encounter Visit Diagnoses Not on filedocumented in this encounter Additional Health Concerns Infection Onset Date Last Indicated Resolved Time COVID-19 Rule Out Comment:04/29/2020 Negative (PAT) 02/20/2020 COVID19 NEGATIVE (PAT) 02/23/2020 02/23/2020 02/23/2020 10:42 AM EDT documented as of this encounter Care Teams Rig Welder Relationship Specialty Start Date End Date Joe Delaney MD [address] [place] [address] [phone] PCP - General Internal Medicine 11/17/18 [place] [address] [place] [address] Referring Physician Internal Medicine 11/17/18 Wan Rodríguez [facility] Vlad Katz [facility] Urology [place] [phone] 06/02/19 Rozina Petersen MD Gastroenterology 03/30/20 documented as of this encounter
--- OUTSIDE RECORDS SUMMARY | 2025-04-01 12:12 | XMS_ITS | Encounter Summary ---
Author Organization [facility] Address [address] [place] [address] Phone Care Team Providers Care Receiver Setter Name Role Phone Joe Delaney MD Primary Care Provider [phone] Twan Davis MD Unavailable [phone] Wan Rodríguez Unavailable Rozina Petersen MD Unavailable Encounter Details Date Type Department Care Team Description 12/21/2019 Email from [facility] Internal Medicine [address] [place] [phone] Joe Delaney MD [address] [place] [address] [phone] Social History Tobacco Use Types Packs/Day Years [...] Visit Internal Medicine Joe Delaney MD [address] [place], [place] [phone] 08/03/2025 Office Visit Pain Medicine Patricia Sotelo PA [address] [place], [place] [phone] documented as of this encounter Visit Diagnoses Not on filedocumented in this encounter Additional Health Concerns Infection Onset Date Last Indicated Resolved Time COVID-19 Rule Out Comment:04/29/2020 Negative (PAT) 02/20/2020 COVID19 NEGATIVE (PAT) 02/23/2020 02/23/2020 02/23/2020 10:42 AM EDT documented as of this encounter Care Teams Receiver Setter Relationship Specialty Start Date End Date Joe Delaney MD [address] [place] [address] PCP - General Internal Medicine 11/17/18 Twan Davis MD [address] [place] [address] Referring Physician Internal Medicine 11/17/18 Wan Rodríguez [facility] Vlad Katz [facility] [address] 06/02/19 Rozina Petersen MD Gastroenterology 03/30/20 documented as of this encounter
--- OUTSIDE RECORDS SUMMARY | 2025-04-01 12:12 | XMS_ITS | Encounter Summary ---
Author Organization [facility] Address [address] [place] [address] Phone Care Team Providers Care Assistant Professor Surgical Technology Name Role Phone Joe Delaney MD Primary Care Provider [phone] Twan Davis MD Unavailable [phone] Wan Rodríguez Unavailable [phone] Rozina Petersen MD Unavailable Encounter Details Date Type Department Care Team Description 11/03/2019 Email from [facility] Initial Department [address] [place] [address] Mychart, Generic Provider Social History Tobacco [...] Visit Internal Medicine Joe Delaney MD [address] [place], [place] [phone] 08/03/2025 Office Visit Pain Medicine Patricia Sotelo PA [address] [place] [address] documented as of this encounter Visit Diagnoses Not on filedocumented in this encounter Additional Health Concerns Infection Onset Date Last Indicated Resolved Time COVID-19 Rule Out Comment:04/29/2020 Negative (PAT) 02/20/2020 COVID19 NEGATIVE (PAT) 02/23/2020 02/23/2020 02/23/2020 10:42 AM EDT documented as of this encounter Care Teams Assistant Professor Surgical Technology Relationship Specialty Start Date End Date Joe Delaney MD [address] [place] [address] PCP - General Internal Medicine 11/17/18 Twan Davis MD [address] [place] [address] Referring Physician Internal Medicine 11/17/18 Wan Rodríguez [facility] [place] [address] 06/02/19 Rozina Petersen MD Gastroenterology 03/30/20 documented as of this encounter
--- OUTSIDE RECORDS SUMMARY | 2025-04-01 12:12 | XMS_ITS | Encounter Summary ---
Author Organization [facility] Address [address] [place] [address] Phone Care Team Providers Care Engagement Specialist Name Role Phone Joe Delaney MD Primary Care Provider [phone] Twan Davis MD Unavailable [phone] Wan Rodríguez Unavailable [phone] Rozina Petersen MD Unavailable Encounter Details Date Type Department Care Team Description 11/12/2022 Email from [facility] Internal Medicine [address] [place] [phone] Joe Delaney MD [address] [place] [address] Social History Tobacco Use Types Packs/Day [...] Office Visit Internal Medicine Joe Delaney MD [address] [place] [address] 08/03/2025 Office Visit Pain Medicine Patricia Sotelo PA [address] [place], [place] [phone] documented as of this encounter Visit Diagnoses Not on filedocumented in this encounter Care Teams Engagement Specialist Relationship Specialty Start Date End Date Joe Delaney MD [address] [place] [address] PCP - General Internal Medicine 11/17/18 Twan Davis MD [address] [place] [address] Referring Physician Internal Medicine 11/17/18 Wan Rodríguez [facility] [place] [address] 06/02/19 Rozina Petersen MD Gastroenterology 03/30/20 documented as of this encounter
--- OUTSIDE RECORDS SUMMARY | 2025-04-01 12:12 | XMS_ITS | Encounter Summary ---
Author Organization [facility] Address [address] [place] [address] Phone Care Team Providers Care Director Operations Broadcast Name Role Phone Joe Delaney MD Primary Care Provider Twan Davis MD Unavailable [phone] Wan Rodríguez Unavailable [phone] Rozina Petersen MD Unavailable Encounter Details Date Type Department Care Team Description 10/12/2024 Email from [facility] [address] [place] [phone] Jamison Castano MD [address] [place] [address] Social History Tobacco Use Types Packs/Day [...] Visit Internal Medicine Joe Delaney MD [address] [place] [address] 08/03/2025 Office Visit Pain Medicine Patricia Sotelo PA [address] [place] [address] documented as of this encounter Visit Diagnoses Not on filedocumented in this encounter Care Teams Director Operations Broadcast Relationship Specialty Start Date End Date Joe Delaney MD [address] [place] [address] PCP - General Internal Medicine 11/17/18 Twan Davis MD [address] [place] [address] Referring Physician Internal Medicine 11/17/18 Wan Rodríguez [facility] [place] [address] 06/02/19 Rozina Petersen MD Gastroenterology 03/30/20 documented as of this encounter
--- OUTSIDE RECORDS SUMMARY | 2025-04-01 12:12 | XMS_ITS | Encounter Summary ---
Author Organization [facility] Address [address] [place] [address] Phone Care Team Providers Care Machine Operator Cane Cutter Name Role Phone Joe Delaney MD Primary Care Provider [phone] Twan Davis MD Unavailable [phone] Wan Rodríguez Unavailable [phone] Rozina Petersen MD Unavailable Encounter Details Date Type Department Care Team Description 10/05/2019 Email from [facility] Internal Medicine [address] [place] [phone] Joe Delaney MD [address] [place] [address] [phone] Social History Tobacco Use Types Packs/Day Years [...] Visit Internal Medicine Joe Delaney MD [address] [place], [place] [phone] 08/03/2025 Office Visit Pain Medicine Patricia Sotelo PA [address] [place], [place] [phone] documented as of this encounter Visit Diagnoses Not on filedocumented in this encounter Additional Health Concerns Infection Onset Date Last Indicated Resolved Time COVID-19 Rule Out Comment:04/29/2020 Negative (PAT) 02/20/2020 COVID19 NEGATIVE (PAT) 02/23/2020 02/23/2020 02/23/2020 10:42 AM EDT documented as of this encounter Care Teams Machine Operator Cane Cutter Relationship Specialty Start Date End Date Joe Delaney MD [address] [place] [address] PCP - General Internal Medicine 11/17/18 Twan Davis MD [address] [place] [address] Referring Physician Internal Medicine 11/17/18 Wan Rodríguez [facility] Vlad Katz [facility] [place] [address] 06/02/19 Rozina Petersen MD Gastroenterology 03/30/20 documented as of this encounter
--- OUTSIDE RECORDS SUMMARY | 2025-04-01 12:12 | XMS_ITS | Encounter Summary ---
Author Organization [facility] Address [address] [place] [address] Phone Care Team Providers Care Oil Rig Roughneck Name Role Phone Joe Delaney MD Primary Care Provider [phone] Twan Davis MD Unavailable [phone] Wan Rodríguez Unavailable [phone] Rozina Petersen MD Unavailable Encounter Details Date Type Department Care Team Description 11/28/2022 Email from [facility] Orthopedics [address] [place] [phone] Kimberly Herndon PA [address] [place] [address] Social History Tobacco Use Types Packs/Day [...] Office Visit Internal Medicine Joe Delaney MD [address] [place] [address] 08/03/2025 Office Visit Pain Medicine Patricia Sotelo PA [address] [place], [place] [phone] documented as of this encounter Visit Diagnoses Not on filedocumented in this encounter Care Teams Oil Rig Roughneck Relationship Specialty Start Date End Date Joe Delaney MD [address] [place] [address] PCP - General Internal Medicine 11/17/18 Twan Davis MD [address] [place] [address] Referring Physician Internal Medicine 11/17/18 Wan Rodríguez [facility] [place] [address] 06/02/19 Rozina Petersen MD Gastroenterology 03/30/20 documented as of this encounter
--- OUTSIDE RECORDS SUMMARY | 2025-04-01 12:12 | XMS_ITS | Encounter Summary ---
Author Organization [facility] Address [address] [place] [address] Phone Care Team Providers Care Home Inspector Name Role Phone Joe Delaney MD Primary Care Provider Twan Davis MD Unavailable [phone] Wan Rodríguez Unavailable [phone] Rozina Petersen MD Unavailable Encounter Details Date Type Department Care Team Description 09/28/2024 Email from [facility] Internal Medicine [address] [place] [phone] Joe Delaney MD [address] [place] [address] Social History Tobacco Use Types Packs/Day [...] Visit Internal Medicine Joe Delaney MD [address] [place] [address] 08/03/2025 Office Visit Pain Medicine Patricia Sotelo PA [address] [place], [place] [phone] documented as of this encounter Visit Diagnoses Not on filedocumented in this encounter Care Teams Home Inspector Relationship Specialty Start Date End Date Joe Delaney MD [address] [place] [address] PCP - General Internal Medicine 11/17/18 [place] [address] [place] [address] Referring Physician Internal Medicine 11/17/18 Wan Rodríguez [facility] [place] [phone] 06/02/19 Rozina Petersen MD Gastroenterology 03/30/20 documented as of this encounter
--- OUTSIDE RECORDS SUMMARY | 2025-04-01 12:12 | XMS_ITS | Encounter Summary ---
Author Organization [facility] Address [address] [place] [address] Phone Care Team Providers Care Metal Bonding Press Operator Name Role Phone Joe Delaney MD Primary Care Provider [phone] Twan Davis MD Unavailable [phone] Wan Rodríguez Unavailable [phone] Rozina Petersen MD Unavailable Encounter Details Date Type Department Care Team Description 12/15/2019 Email from [facility] Internal Medicine [address] [place] [phone] Joe Delaney MD [address] [place] [address] [phone] Social History Tobacco Use Types Packs/Day Years [...] Visit Internal Medicine Joe Delaney MD [address] [place], [place] [phone] 08/03/2025 Office Visit Pain Medicine Patricia Sotelo PA [address] [place], [place] [phone] documented as of this encounter Visit Diagnoses Not on filedocumented in this encounter Additional Health Concerns Infection Onset Date Last Indicated Resolved Time COVID-19 Rule Out Comment:04/29/2020 Negative (PAT) 02/20/2020 COVID19 NEGATIVE (PAT) 02/23/2020 02/23/2020 02/23/2020 10:42 AM EDT documented as of this encounter Care Teams Metal Bonding Press Operator Relationship Specialty Start Date End Date Joe Delaney MD [address] [place] [address] PCP - General Internal Medicine 11/17/18 Twan Davis MD [address] [place] [address] Referring Physician Internal Medicine 11/17/18 Wan Rodríguez [facility] Vlad Katz [facility] [place] [address] 06/02/19 Rozina Petersen MD Gastroenterology 03/30/20 documented as of this encounter
--- OUTSIDE RECORDS SUMMARY | 2025-04-01 12:12 | XMS_ITS | Encounter Summary ---
Author Organization [facility] Address [address] [place] [address] Phone Care Team Providers Care Rag Inspector Name Role Phone Joe Delaney MD Primary Care Provider [phone] Twan Davis MD Unavailable [phone] Wan Rodríguez Unavailable [phone] Rozina Petersen MD Unavailable Encounter Details Date Type Department Care Team Description 12/11/2019 Orders Only Endocrinology [address] [place] [address] Jayjay Allred MD [address] [place], [place] [phone] Goiter diffuse, adenomatous; Multiple thyroid nodules Social [...] Visit Internal Medicine Joe Delaney MD [address] [place] [address] 08/03/2025 Office Visit Pain Medicine Patricia Sotelo PA [address] [place] [address] documented as of this encounter Procedures Procedure [...] MD LAB BLOOD ORDERABLES Performing Organization Address [facility] de Phone Number [address] [phone] * TSH (12/11/2019 9:29 AM EDT) TSH 2.12 0.50 - 6.00 uIU/mL [facility] Blood 12/11/2019 9:29 AM EDT 12/11/2019 9:40 AM EDT Jayjayluis fernando Allred MD LAB BLOOD ORDERABLES Performing Organization Address [facility] Co de Phone Number [address] [place], [place] [phone] documented in this encounter Visit Diagnoses Diagnosis Goiter diffuse, adenomatous Unspecified nontoxic nodular goiter Multiple thyroid nodules Nontoxic multinodular goiter documented in this encounter Additional Health Concerns Infection Onset Date Last Indicated Resolved Time COVID-19 Rule Out Comment:04/29/2020 Negative (PAT) 02/20/2020 COVID19 NEGATIVE (PAT) 02/23/2020 02/23/2020 02/23/2020 10:42 AM EDT documented as of this encounter Care Teams Rag Inspector Relationship Specialty Start Date End Date Joe Delaney MD [address] [place] [address] PCP - General Internal Medicine 11/17/18 Twan Davis MD [address] [place], [place] 1690001 Referring Physician Internal Medicine 11/17/18 Wan Rodríguez [facility] [place] [id number] 06/02/19 Rozina Petersen MD Gastroenterology 03/30/20 documented as of this encounter
--- OUTSIDE RECORDS SUMMARY | 2025-04-01 12:12 | XMS_ITS | Encounter Summary ---
Author Organization [facility] Address [address] [place] [address] Phone Care Team Providers Care Ui Developer With Angular Js Name Role Phone Joe Delaney MD Primary Care Provider [phone] Twan Davis MD Unavailable [phone] Wan Rodríguez Unavailable [phone] Rozina Petersen MD Unavailable Encounter Details Date Type Department Care Team Description 11/06/2022 Orders Only Internal Medicine [address] [place] [phone] Joe Delaney MD [address] [place] [address] Essential hypertension; Paroxysmal atrial fibrillation; Laboratory examination [...] Visit Internal Medicine Joe Delaney MD [address] [place] [address] 08/03/2025 Office Visit Pain Medicine Patricia Sotelo PA [address] [place] [address] documented as of this encounter Procedures Procedure [...] [facility] Comment:If patient is [facility] n [facility] multiply result by 1.212 Alb/Glob ratio 1.8 1.2 - 1.8 [facility] Globulin 2.4 1.6 - 3.9 g/dL [facility] Blood 11/06/2022 8:21 AM EDT 11/06/2022 8:28 AM EDT Joe Delaney MD LAB BLOOD ORDERABLES [facility] [address] [place], [place] [phone] * CBC (11/06/2022 8:21 AM EDT) WBC [...] LAB BLOOD ORDERABLES FREQUENCY Performing Organization Address [facility] Co de Phone Number AP DIAZ [address] [place], [place] [phone] * (ABNORMAL) Lipid panel (11/06/2022 8:21 AM EDT) Cholesterol 178 136 - 200 mg/dL [facility] Comment: Cholesterol Risk Levels Recommended under 200mg/dl Borderline 200-239mg/dl High Risk above 240mg/dl Triglycerides 78 48 - 200 mg/dL [facility] HDL 44 35 - 92 mg/dL [facility] LDL Cholesterol 118 0 - 140 mg/dL [facility] Total Rea-GIP-Ftbx (LDL+VLDL) 133.8(H) 30.0 - 130.0 mg/dl [facility] Chol/HDL Ratio 4.0 3.4 - 24.0 [facility] Blood 11/06/2022 8:21 AM EDT 11/06/2022 8:28 AM EDT Joe Delaney MD LAB BLOOD ORDERABLES Performing Organization Address [facility] Co de Phone Number AP DIAZ [address] [place], [place] [phone] documented in this encounter Visit Diagnoses Diagnosis Essential hypertension Unspecified essential hypertension Paroxysmal atrial fibrillation Atrial fibrillation Laboratory examination ordered as part of a routine general medical examination GERD without esophagitis Esophageal reflux documented in this encounter Care Teams Ui Developer With Angular Js Relationship Specialty Start Date End Date Joe Delaney MD [address] [place] [address] PCP - General Internal Medicine 11/17/18 Twan Davis MD [address] [place] [address] Referring Physician Internal Medicine 11/17/18 Wan Rodríguez [facility] [place] [address] 06/02/19 Rozina Petersen MD Gastroenterology 03/30/20 documented as of this encounter
--- OUTSIDE RECORDS SUMMARY | 2025-04-01 12:12 | XMS_ITS | Encounter Summary ---
Author Organization [facility] Address [address] [place] [address] Phone Care Team Providers Care Freight Car Loader Name Role Phone Joe Delaney MD Primary Care Provider [phone] Twan Davis MD Unavailable [phone] Wan Rodríguez Unavailable [phone] Rozina Petersen MD Unavailable Encounter Details Date Type Department Care Team Description 12/09/2019 Email from [facility] Internal Medicine [address] [place] [phone] Joe Delaney MD [address] [place] [address] [phone] Social History Tobacco Use Types Packs/Day Years [...] Visit Internal Medicine Joe Delaney MD [address] [place], [place] [phone] 08/03/2025 Office Visit Pain Medicine Patricia Sotelo PA [address] [place], [place] [phone] documented as of this encounter Visit Diagnoses Not on filedocumented in this encounter Additional Health Concerns Infection Onset Date Last Indicated Resolved Time COVID-19 Rule Out Comment:04/29/2020 Negative (PAT) 02/20/2020 COVID19 NEGATIVE (PAT) 02/23/2020 02/23/2020 02/23/2020 10:42 AM EDT documented as of this encounter Care Teams Freight Car Loader Relationship Specialty Start Date End Date Joe Delaney MD [address] [place] [address] PCP - General Internal Medicine 11/17/18 Twan Davis MD [address] [place] [address] Referring Physician Internal Medicine 11/17/18 Wan Rodríguez [facility] Vlad Katz [facility] [place] [address] 06/02/19 Rozina Petersen MD Gastroenterology 03/30/20 documented as of this encounter
--- OUTSIDE RECORDS SUMMARY | 2025-04-01 12:12 | XMS_ITS | Encounter Summary ---
Author Organization [facility] Address [address] [place] [address] Phone Care Team Providers Care Bobbin Cleaner Name Role Phone Joe Delaney MD Primary Care Provider [phone] Twan Davis MD Unavailable [phone] Wan Rodríguez Unavailable [phone] Rozina Petersen MD Unavailable Encounter Details Date Type Department Care Team Description 05/23/2022 Email from [facility] Internal Medicine [address] [place] [phone] Joe Delaney MD [address] [place] [address] Social History Tobacco Use Types Packs/Day [...] Visit Internal Medicine Joe Delaney MD [address] [place] [address] 08/03/2025 Office Visit Pain Medicine Patricia Sotelo PA [address] [place], [place] [phone] documented as of this encounter Visit Diagnoses Not on filedocumented in this encounter Care Teams Bobbin Cleaner Relationship Specialty Start Date End Date Joe Delaney MD [address] [place] [address] PCP - General Internal Medicine 11/17/18 Twan Davis MD [address] [place] [address] Referring Physician Internal Medicine 11/17/18 Wan Rodríguez [facility] [place] [address] 06/02/19 Rozina Petersen MD Gastroenterology 03/30/20 documented as of this encounter
--- OUTSIDE RECORDS SUMMARY | 2025-04-01 12:12 | XMS_ITS | Encounter Summary ---
Author Organization [facility] Address [address] [place] [address] Phone Care Team Providers Care Industrial Technician Name Role Phone Joe Delaney MD Primary Care Provider Twan Davis MD Unavailable [phone] Wan Rodríguez Unavailable Rozina Petersen MD Unavailable Encounter Details Date Type Department Care Team Description 01/25/2020 Email from [facility] Internal Medicine [address] [place] [phone] Joe Delaney MD [address] [place] [address] [phone] Social History Tobacco Use Types Packs/Day Years [...] Visit Internal Medicine Joe Delaney MD [address] [place], [place] [phone] 08/03/2025 Office Visit Pain Medicine Patricia Sotelo PA [address] [place], [place] [phone] documented as of this encounter Visit Diagnoses Not on filedocumented in this encounter Additional Health Concerns Infection Onset Date Last Indicated Resolved Time COVID-19 Rule Out Comment:04/29/2020 Negative (PAT) 02/20/2020 COVID19 NEGATIVE (PAT) 02/23/2020 02/23/2020 02/23/2020 10:42 AM EDT documented as of this encounter Care Teams Industrial Technician Relationship Specialty Start Date End Date Joe Delaney MD [address] [place] [address] PCP - General Internal Medicine 11/17/18 Twan Davis MD [address] [place] [address] Referring Physician Internal Medicine 11/17/18 Wan Rodríguez [facility] Vlad Katz [facility] [place] [address] 06/02/19 Rozina Petersen MD Gastroenterology 03/30/20 documented as of this encounter
--- OUTSIDE RECORDS SUMMARY | 2025-04-01 12:12 | XMS_ITS | Encounter Summary ---
Author Organization [facility] Address [address] [place] [address] Phone Care Team Providers Care Corporate Risk Analyst Name Role Phone Joe Delaney MD Primary Care Provider [phone] Twan Davis MD Unavailable [phone] Wan Rodríguez Unavailable [phone] Rozina Petersen MD Unavailable Encounter Details Date Type Department Care Team Description 10/20/2024 Email from [facility] [address] [place] [phone] Jamison Castano MD [address] [place] [address] Social History Tobacco Use Types Packs/Day [...] Visit Internal Medicine Joe Delaney MD [address] [place] [address] 08/03/2025 Office Visit Pain Medicine Patricia Sotelo PA [address] [place] [address] documented as of this encounter Visit Diagnoses Not on filedocumented in this encounter Care Teams Corporate Risk Analyst Relationship Specialty Start Date End Date Joe Delaney MD [address] [place] [address] PCP - General Internal Medicine 11/17/18 Twan Davis MD [address] [place] [address] Referring Physician Internal Medicine 11/17/18 Wan Rodríguez [facility] [place] [address] 06/02/19 Rozina Petersen MD Gastroenterology 03/30/20 documented as of this encounter
--- OUTSIDE RECORDS SUMMARY | 2025-04-01 12:12 | XMS_ITS | Encounter Summary ---
Author Organization [facility] Address [address] [place] [address] Phone Care Team Providers Care Speech Lang Path Therapist Name Role Phone Joe Delaney MD Primary Care Provider [phone] Twan aDvis MD Unavailable [phone] Wan Rodríguez Unavailable [phone] Rozina Petersen MD Unavailable Encounter Details Date Type Department Care Team Description 01/19/2020 Email from [facility] Orthopedics [address] [place] [phone] Kimberly Herndon PA [address] [place] [address] [phone] Social History Tobacco Use Types Packs/Day Years [...] Visit Internal Medicine Joe Delaney MD [address] [place], [place] [phone] 08/03/2025 Office Visit Pain Medicine Patricia Sotelo PA [address] [place], [place] [phone] documented as of this encounter Visit Diagnoses Not on filedocumented in this encounter Additional Health Concerns Infection Onset Date Last Indicated Resolved Time COVID-19 Rule Out Comment:04/29/2020 Negative (PAT) 02/20/2020 COVID19 NEGATIVE (PAT) 02/23/2020 02/23/2020 02/23/2020 10:42 AM EDT documented as of this encounter Care Teams Speech Lang Path Therapist Relationship Specialty Start Date End Date Joe Delaney MD [address] [place] [address] PCP - General Internal Medicine 11/17/18 [place] [address] [place] [address] Referring Physician Internal Medicine 11/17/18 Wan Rodríguez [facility] Vlad Katz [facility] [place] [address] 06/02/19 Rozina Petersen MD Gastroenterology 03/30/20 documented as of this encounter
--- OUTSIDE RECORDS SUMMARY | 2025-04-01 12:12 | XMS_ITS | Encounter Summary ---
Author Organization [facility] Address [address] [place] [address] Phone Care Team Providers Care Admitting Coordinator Name Role Phone Joe Delaney MD Primary Care Provider [phone] Twan Davis MD Unavailable [phone] Wan Rodríguez Unavailable [phone] Roznia Petersen MD Unavailable Encounter Details Date Type Department Care Team Description 11/25/2019 Email from [facility] Internal Medicine [address] [place] [phone] Joe Delaney MD [address] [place] [address] [phone] Social History Tobacco Use Types Packs/Day Years [...] Visit Internal Medicine Joe Delaney MD [address] [place], [place] [phone] 08/03/2025 Office Visit Pain Medicine Patricia Sotelo PA [address] [place], [place] [phone] documented as of this encounter Visit Diagnoses Not on filedocumented in this encounter Additional Health Concerns Infection Onset Date Last Indicated Resolved Time COVID-19 Rule Out Comment:04/29/2020 Negative (PAT) 02/20/2020 COVID19 NEGATIVE (PAT) 02/23/2020 02/23/2020 02/23/2020 10:42 AM EDT documented as of this encounter Care Teams Admitting Coordinator Relationship Specialty Start Date End Date Joe Delaney MD [address] [place] [address] PCP - General Internal Medicine 11/17/18 Twan Davis MD [address] [place] [address] Referring Physician Internal Medicine 11/17/18 Wan Rodríguez [facility] Vlad Katz [facility] [place] [address] 06/02/19 Rozina Petersen MD Gastroenterology 03/30/20 documented as of this encounter
--- OUTSIDE RECORDS SUMMARY | 2025-04-01 12:13 | XMS_ITS | Encounter Summary ---
Author Organization [facility] Address [address] [place] [address] Phone Care Team Providers Care Pony Worker Name Role Phone Joe Delaney MD Primary Care Provider [phone] Twan Davis MD Unavailable [phone] Wan Rodríguez Unavailable [phone] Rozina Petersen MD Unavailable Encounter Details Date Type Department Care Team Description 2016 Conversion Internal Medicine [address] [place] [phone] Joe Delaney MD [facility] [place], [place] [phone] Social History Tobacco Use Types Packs/Day Years [...] Added new problem of GOITER, MULTINODULAR (ICD-241.1) ([id number]) Assessed GOITER, MULTINODULAR as new Flowsheet Changes - Added new observation of PROBLEMS REV: Done (2016 13:14) Additional comments/actions: Refer to Dr Allred for evaluation of Thyroid. Please note, this documentation has been converted into the [employer] EHR from our [employer] EMR forinformational purposes only. This documentation must not be released or used for legal purposes as the note is missing the responsible provider???s signature. A copy of the legal medical record can be obtained or printed only from the [employer] EMR. Referral made to Dr. Allred's office appt scheduled 08/01/16 @ 2:30 pm. Please note, this documentation has been converted into the Epic EHR from our [employer] EMR forinformational purposes only. This documentation must not be released or used for legal purposes as the note is missing the responsible provider???s signature. A copy of the legal medical record can be obtained or printed only from the [employer] EMR. Patient aware of above. Please note, this documentation has been converted into the Epic EHR from our [employer] EMR forinformational purposes only. This documentation must not be released or used for legal purposes as the note is missing the responsible provider???s signature. A copy of the legal medical record can be obtained or printed only from the [employer] EMR. documented in this encounter Plan of Treatment Upcoming Encounters Date Type Specialty Care Team Description 05/25/2025 Office Visit Internal Medicine Joe Delaney MD [address] [place] [address] 08/03/2025 Office Visit Pain Medicine Patricia Sotelo PA [address] [place], [place] [phone] documented as of this encounter Visit Diagnoses Not on filedocumented in this encounter Additional Health Concerns Infection Onset Date Last Indicated Resolved Time COVID-19 Rule Out Comment:04/29/2020 Negative (PAT) 02/20/2020 COVID19 NEGATIVE (PAT) 02/23/2020 02/23/2020 02/23/2020 10:42 AM EDT documented as of this encounter Care Teams Pony Worker Relationship Specialty Start Date End Date Joe Delaney MD [address] [place] [address] PCP - General Internal Medicine 11/17/18 Twan Davis MD [address] [place] [address] Referring Physician Internal Medicine 11/17/18 Wan Rodríguez [facility] Vlad Katz [facility] [place] [address] 06/02/19 Rozina Petersen MD Gastroenterology 03/30/20 documented as of this encounter
--- OUTSIDE RECORDS SUMMARY | 2025-04-01 12:13 | XMS_ITS | Encounter Summary ---
Author Organization [facility] Address [address] [place] [address] Phone Care Team Providers Care Electrode Turner And Finisher Name Role Phone Joe Delaney MD Primary Care Provider [phone] Twan Davis MD Unavailable [phone] Wan Rodríguez Unavailable [phone] Rozina Petersen MD Unavailable Encounter Details Date Type Department Care Team Description 01/23/2016 Conversion Internal Medicine [address] [place] [phone] Joe Delaney MD [address] [place] [address] Social History Tobacco Use Types Packs/Day [...] this documentation has been converted into the [employer] EHR from our [employer] EMR forinformational purposes only. This documentation must not be released or used for legal purposes as the note is missing the responsible provider???s signature. A copy of the legal medical record can be obtained or printed only from the [employer] EMR. patient is aware of above, patient already has appt for 01/30/16 Please note, this documentation has been converted into the Epic EHR from our [employer] EMR forinformational purposes only. This documentation must not be released or used for legal purposes as the note is missing the responsible provider???s signature. A copy of the legal medical record can be obtained or printed only from the [employer] EMR. documented in this encounter Plan of Treatment Upcoming Encounters Date Type Specialty Care Team Description 05/25/2025 Office Visit Internal Medicine Joe Delaney MD [address] [place] [address] [phone] 08/03/2025 Office Visit Pain Medicine Patricia Sotelo PA [address] [place] [address] documented as of this encounter Visit Diagnoses Not on filedocumented in this encounter Additional Health Concerns Infection Onset Date Last Indicated Resolved Time COVID-19 Rule Out Comment:04/29/2020 Negative (PAT) 02/20/2020 COVID19 NEGATIVE (PAT) 02/23/2020 02/23/2020 02/23/2020 10:42 AM EDT documented as of this encounter Care Teams Electrode Turner And Finisher Relationship Specialty Start Date End Date Joe Delaney MD [address] [place], [place] [phone] PCP - General Internal Medicine 11/17/18 Twan Davis MD [address] [place] [address] Referring Physician Internal Medicine 11/17/18 Wan Rodríguez [facility] Katz [facility] [place] [address] 06/02/19 Rozina Petersen MD Gastroenterology 03/30/20 documented as of this encounter
--- OUTSIDE RECORDS SUMMARY | 2025-04-01 12:13 | XMS_ITS | Encounter Summary ---
Author Organization [facility] Address [address] [place] [address] Phone Care Team Providers Care Egg Trayer Name Role Phone Joe Delaney MD Primary Care Provider [phone] Twan Davis MD Unavailable [phone] Wan Rodríguez Unavailable [phone] Rozina Petersen MD Unavailable Encounter Details Date Type Department Care Team Description 03/27/2016 Conversion Health Information Management - Release of Information [address] [place], [place] [phone] Conversion, [facility] Default Provider For [address] [place] [address] Social History Tobacco Use Types Packs/Day Years Used Date Smoking Tobacco: Never Assessed Sex Assigned at Date Recorded Male 03/28/2020 2:09 AM E DT Job Start Date Occupation Industry Not on file Not on file Not on file documented as of this encounter Progress Notes * [facility] Default Provider For Conversion - 03/27/2016 12:41 PM EDT Patient: DILIP SOLANO ID: [id number] Note: All result statuses are Final unless [...] Physician: Ordering Physician: (medrec) Specimen Source: Source: Innogen[employer]ber Tanner Order Number: Lab site: Please note, this documentation has been converted into the [employer] EHR from our [employer] EMR for informational purposes only. This documentation must not be released or used for legal purposes as the note is missing the responsible provider???s signature. A copy of the legal medical record can be obtained or printed only from the [employer] EMR. documented in this encounter Plan of Treatment Upcoming Encounters Date Type Specialty Care Team Description 05/25/2025 Office Visit Internal Medicine Joe Delaney MD [address] [place] [address] 08/03/2025 Office Visit Pain Medicine Patricia Sotelo PA [address] [place], [place] [phone] documented as of this encounter Visit Diagnoses Not on filedocumented in this encounter Additional Health Concerns Infection Onset Date Last Indicated Resolved Time COVID-19 Rule Out Comment:04/29/2020 Negative (PAT) 02/20/2020 COVID19 NEGATIVE (PAT) 02/23/2020 02/23/2020 02/23/2020 10:42 AM EDT documented as of this encounter Care Teams Egg Trayer Relationship Specialty Start Date End Date Joe Delaney MD [address] [place], [place] [phone] PCP - General Internal Medicine 11/17/18 [place] [address] [place] [address] Referring Physician Internal Medicine 11/17/18 Wan Rodríguez [facility] [address] 06/02/19 Rozina Petersen MD Gastroenterology 03/30/20 documented as of this encounter
--- OUTSIDE RECORDS SUMMARY | 2025-04-01 12:13 | XMS_ITS | Encounter Summary ---
Author Organization [facility] Address [address] [place] [address] Phone Care Team Providers Care Hide And Skin Classer Name Role Phone Joe Delaney MD Primary Care Provider [phone] Twan Davis MD Unavailable [phone] Wan Rodríguez Unavailable [phone] Rozina Petersen MD Unavailable Encounter Details Date Type Department Care Team Description 12/27/2015 Conversion Internal Medicine [address] [place] [phone] Joe Delaney MD [address] [place], [place] [phone] Social History Tobacco Use Types Packs/Day Years [...] : 1950 AGE: [age] year old ACCT: [id number] MR: [id number] ATTENDING : GROUP ED PROVIDERMD ROOM: ED ORDERING: AMINA SNYDER MD DATE: 12/27/2015 04:32 P EXAM: SLCT HEAD STROKE PROTOCOL ACCN: [id number] CT brain stroke protocol. CLINICAL HISTORY: Dizziness [...] MD 12/27/2015 4:42 PM pse P DL: [id number] P cc: REVIEWED ONLY Please note, this documentation has been converted into the Quidsi EHR from our Method CRM EMR forinformational purposes only. This documentation must not be released or used for legal purposes as the note is missing the responsible provider???s signature. A copy of the legal medical record can be obtained or printed only from the Method CRM EMR. documented in this encounter Plan of Treatment Upcoming Encounters Date Type Specialty Care Team Description 05/25/2025 Office Visit Internal Medicine Joe Delaney MD [address] [place] [address] 08/03/2025 Office Visit Pain Medicine Patricia Sotelo PA [address] [place] [address] documented as of this encounter Procedures Procedure [...] : 1950 AGE: [age] year old ACCT: [id number] MR: [id number] ATTENDING : GROUP ED PROVIDERMD ROOM: ED ORDERING: AMINA SNYDER MD DATE: 12/27/2015 04:32 P EXAM: SLCT HEAD STROKE PROTOCOL ACCN: [id number] CT brain stroke protocol. CLINICAL HISTORY: Dizziness [...] MD 12/27/2015 4:42 PM pse P DL: [id number] P cc: REVIEWED ONLY Please note, this documentation has been converted into the Quidsi EHR fromour Method CRM EMR for informational purposes only. This documentationmust not be released or used for legal purposes as the note is missing theresponsible provider s signature. A copy of the legal medical record canbe obtained or printed only from the Method CRM EMR. Joe Delaney MD HEALTH MAINTENANCE documented in this encounter Visit Diagnoses Not on filedocumented in this encounter Additional Health Concerns Infection Onset Date Last Indicated Resolved Time COVID-19 Rule Out Comment:04/29/2020 Negative (PAT) 02/20/2020 COVID19 NEGATIVE (PAT) 02/23/2020 02/23/2020 02/23/2020 10:42 AM EDT documented as of this encounter Care Teams Hide And Skin Classer Relationship Specialty Start Date End Date Joe Delaney MD [address] [place] [address] PCP - General Internal Medicine 11/17/18 [place] [address] [place] [address] Referring Physician Internal Medicine 11/17/18 Wan Rodríguez [facility] Vlad Katz [facility] [place] [address] 06/02/19 Rozina Petersen MD Gastroenterology 03/30/20 documented as of this encounter
--- OUTSIDE RECORDS SUMMARY | 2025-04-01 12:13 | XMS_ITS | Encounter Summary ---
Author Organization [facility] Address [address] [place] [address] Phone Care Team Providers Care Benefits Representative Name Role Phone Joe Mensah MD Primary Care Provider Twan Davis MD Unavailable [phone] Wan Rodríguez Unavailable [phone] Rozina Petersen MD Unavailable Encounter Details Date Type Department Care Team Description 01/06/2016 Conversion Private Practice - Procedural [address] [place] [phone] Geronimo Salguero MD [address] [place] [address] Social History Tobacco Use Types Packs/Day Years [...] RE: DILIP SOLANO DOS: 01/06/2016 PK/htskk Job: [id number] Ejection Fraction: 60-65 (11/11/2015) Total Cholesterol: [...] Number of Children: 3;. Place of : [place];. 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 Sleep History: 6-8 hrs;. Travel History: [place];. Tobacco use: never smoker. Alcohol use:yes. Alcohol [...] enlarged lymph nodes. Previous Problems: TIA (ICD-435.9) (OKS96-U29.9) ATRIAL FIBRILLATION, PAROXYSMAL (ICD-427.31) (KMH45-U75.0) CHEST DISCOMFORT (ICD-786.59) (VHQ90-W52.89) DYSPNEA (ICD-786.09) (HCR85-T28.00) CATARACT (ICD-366.9) (IQI20-Y32.9) PREOPERATIVE EXAMINATION NEC (ICD-V72.83) (LDK16-Y33.818) ATRIAL FIBRILLATION (ICD-427.31) (DJE98-A57.0) LUMBAGO (ICD-724.2) (VWF70-Q10.5) HX OF BEE STING ALLERGY (ICD-V15.06) (IZU45-Q76.030) ESSENTIAL HYPERTENSION (ICD-401.9) (SOJ78-C76) OSTEOARTHRITIS, KNEE, RIGHT (ICD-715.96) (AHQ90-C93.9) INGROWING NAIL (ICD-703.0)(KOE36-Z87.0) KNEE PAIN, RIGHT (ICD-719.46) (IQG47-F43.561) ? of ADENOCARCINOMA, PROSTATE (ICD-185) (DKP22-L30) Sx of DEGENERATIVE JOINT DISEASE, KNEE (ICD-715.96) (WWC40-G99.9) BENIGN PROSTATIC HYPERPLASIA (ICD-600.00) (RQZ92-P80.0) PSA, INCREASED (ICD-790.93) (WDR30-Z88.2) SPRAIN/STRAIN NOS (ICD-848.9) (RBV52-D19.8) SCREENING FOR UNSPECIFIED CONDITION (ICD-V82.9) (KKD50-A92.9) SCREENING FOR LIPOID DISORDERS (ICD-V77.91) (AOH77-H08.220) ALLERGIC RHINITIS CAUSE UNSPECIFIED (ICD-477.9) POSTNASAL DRIP (ICD-784.91) (PBE88-S01.82) GERD (ICD-530.81) (ZAF18-U84.9) ALLERGIES: PCN (Moderate) AMLODIPINE BESYLATE (AMLODIPINE BESYLATE) (Moderate) PENICILLIN (Moderate) Previous Medications: - verified by patient or patient applications sales representative LOSARTAN POTASSIUM 100 MG TABS (LOSARTAN POTASSIUM) one po qd XARELTO 20 MG TABS (RIVAROXABAN) one po qd METOPROLOL SUCCINATE ER 25 MG MC87H-FPO (METOPROLOL SUCCINATE) 1 by mouth twice a [...] (RIVAROXABAN) one po qd New Orders: SNOMED-CT: [id number] Patient Encounter for Meaningful Use [[id number]] IMPRESSION AND PLAN: 1. Paroxysmal atrial fibrillation. [...] RE: DILIP SOLANO DOS: 01/06/2016 PK/htskk Job: [id number] cc: JOE MENSAH M.D. Please note, this documentation has been converted into the myfab5 EHR from our Woof[employer]ar EMR forinformational purposes only. This documentation must not be released or used for legal purposes as the note is missing the responsible provider???s signature. A copy of the legal medical record can be obtained or printed only from the [employer] EMR. documented in this encounter Plan of Treatment Upcoming Encounters Date Type Specialty Care Team Description 05/25/2025 Office Visit Internal Medicine Joe Mensah MD [address] [place] [address] [phone] 08/03/2025 Office [place] [address] [place] [address] documented as of this encounter Visit Diagnoses Not on filedocumented in this encounter Additional Health Concerns Infection Onset Date Last Indicated Resolved Time COVID-19 Rule Out Comment:04/29/2020 Negative (PAT) 02/20/2020 COVID19 NEGATIVE (PAT) 02/23/2020 02/23/2020 02/23/2020 10:42 AM EDT documented as of this encounter Care Teams Benefits Representative Relationship Specialty [place] [address] [place] [address] PCP - General Internal Medicine 11/17/18 Twan Davis MD [address] [place] [address] Referring Physician Internal Medicine 11/17/18 Wan Rodríguez [facility] Gianna [facility] [place] [address] 06/02/19 Rozina Petersen MD Gastroenterology 03/30/20 documented as of this encounter
--- OUTSIDE RECORDS SUMMARY | 2025-04-01 12:13 | XMS_ITS | Encounter Summary ---
Author Organization [facility] Address [address] [place] [address] Phone Care Team Providers Care Timekeeper Supervisor Name Role Phone Joe Delaney MD Primary Care Provider [phone] Twan Davis MD Unavailable [phone] Wan Rodríguez Unavailable [phone] Rozina Petersen MD Unavailable Encounter Details Date Type Department Care Team Description 12/29/2015 Conversion Internal Medicine [address] [place] [phone] Joe Delaney MD [address] [place], [place] [id number] Social History Tobacco Use Types Packs/Day Years [...] converted into the Epic EHR from our Conject EMR forinformational purposes only. This documentation must not be released or used for legal purposes as the note is missing the responsible provider?s signature. A copy of the legal medical record can be obtained or printed only from the Conject EMR. spoke with patient made appt for 01/30/16 at 11:40am w/ DCG Please note, this documentation has been converted into the Epic EHR from our Conject EMR forinformational purposes only. This documentation must not be released or used for legal purposes as the note is missing the responsible provider???s signature. A copy of the legal medical record can be obtained or printed only from the Conject EMR. change patient appt to 01/05/16 at 9:20am Please note, this documentation has been converted into the Epic EHR from our Conject EMR forinformational purposes only. This documentation must not be released or used for legal purposes as the note is missing the responsible provider???s signature. A copy of the legal medical record can be obtained or printed only from the [employer] EMR. documented in this encounter Plan of Treatment Upcoming Encounters Date Type Specialty Care Team Description 05/25/2025 Office Visit Internal Medicine Joe Delaney MD [address] [place] [address] [phone] 08/03/2025 Office Visit [place] [address] [place] [address] documented as of this encounter Visit Diagnoses Not on filedocumented in this encounter Additional Health Concerns Infection Onset Date Last Indicated Resolved Time COVID-19 Rule Out Comment:04/29/2020 Negative (PAT) 02/20/2020 COVID19 NEGATIVE (PAT) 02/23/2020 02/23/2020 02/23/2020 10:42 AM EDT documented as of this encounter Care Teams Timekeeper Supervisor Relationship Specialty Start Date End Date Joe Delaney MD [address] [place] [address] [phone] PCP - General Internal Medicine 11/17/18 [place] [address] [place] [address] Referring Physician Internal Medicine 11/17/18 Wan Rodríguez [facility] [address] 06/02/19 Rozina Petersen MD Gastroenterology 03/30/20 documented as of this encounter
--- OUTSIDE RECORDS SUMMARY | 2025-04-01 12:13 | XMS_ITS | Encounter Summary ---
Author Organization [facility] Address [address] [place] [address] Phone Care Team Providers Care Environmental Science Program Director Name Role Phone Joe Delaney MD Primary Care Provider Twan Davis MD Unavailable [phone] Wan Rodríguez Unavailable [phone] Rozina Petersen MD Unavailable Encounter Details Date Type Department Care Team Description 02/17/2016 Conversion Private Practice - Procedural [address] [place] [phone] Geronimo Salguero MD [address] [place] [address] Social History Tobacco Use Types Packs/Day Years [...] that we fax his records to in [facility]. [phone]. Clinical Staff - Followup Call Details: ok per . records faxed and patient aware Entered by: Asia Crawford February 20, 2016 12:11 PM Please note, this documentation has been converted into the iDevices EHR from our [employer] EMR forinformational purposes only. This documentation must not be released or used for legal purposes as the note is missing the responsible provider???s signature. A copy of the legal medical record can be obtained or printed only from the [employer] EMR. documented in this encounter Plan of Treatment Upcoming Encounters Date Type Specialty Care Team Description 05/25/2025 Office Visit [place] [address] [place] [address] [phone] 08/03/2025 Office Visit [place] [address] [place] [address] [phone] documented as of this encounter Visit Diagnoses Not on filedocumented in this encounter Additional Health Concerns Infection Onset Date Last Indicated Resolved Time COVID-19 Rule Out Comment:04/29/2020 Negative (PAT) 02/20/2020 COVID19 NEGATIVE (PAT) 02/23/2020 02/23/2020 02/23/2020 10:42 AM EDT documented as of this encounter Care Teams Environmental Science Program Director Relationship Specialty Start [place] [address] [place] [address] [phone] PCP - General Internal Medicine 11/17/18 [place] [address] [place] [address] Referring Physician Internal Medicine 11/17/18 Wan Rodríguez [facility] Gianna [facility] Urology [place] [phone] 06/02/19 Rozina Petersen MD Gastroenterology 03/30/20 documented as of this encounter
--- OUTSIDE RECORDS SUMMARY | 2025-04-01 12:13 | XMS_ITS | Encounter Summary ---
Author Organization [facility] Address [address] [place] [address] Phone Care Team Providers Care Satellite Tv Installer Name Role Phone Joe Delaney MD Primary Care Provider [phone] Twan Davis MD Unavailable [phone] Wan Rodríguez Unavailable [phone] Rozina Petersen MD Unavailable Encounter Details Date Type Department Care Team Description 09/07/2016 Conversion Internal Medicine [address] [place] [phone] Joe Delaney MD [address] [place] [address] Social History Tobacco Use Types Packs/Day [...] sees Urologist - Dr Renner - in [facility]. Was seen a mo ago, told to [...] BPH. Past Surgical History: Tonsillectomy, childhood; . [place] teeth extracted;. Dental implants. . Prost bx. Social History: Marital Status: . . Number of Children: 3. Place of : [place]. 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 Sleep History: 6-8 hrs;. Travel History: [place];. Tobacco use: never smoker. Alcohol use:yes. Alcohol [...] visit) - verified by patient or patient marketing sales representative LOSARTAN POTASSIUM 100 MG TABS [...] counseling at this time New Orders: SNOMED-CT: [id number] Patient Encounter for Meaningful Use [[id number]] Lipid Panel with reflex DLDL if indicated 545852 [87016] CBC,manual diff if indicated 052330 [39090] Comprehensive Metabolic Profile 039926 [95367] T4, FREE [5015] TSH [5020] Disposition: return [...] this documentation has been converted into the Zumper EHR from our [employer] EMR forinformational purposes only. This documentation must not be released or used for legal purposes as the note is missing the responsible provider???s signature. A copy of the legal medical record can be obtained or printed only from the [employer] EMR. Lab order reviewed with Dr Allred and is sufficient. Notify pt to proceed with lab order. Please note, this documentation has been converted into the Zumper EHR from our [employer] EMR forinformational purposes only. This documentation must not be released or used for legal purposes as the note is missing the responsible provider???s signature. A copy of the legal medical record can be obtained or printed only from the [employer] EMR. Called patient left message on voicemail to call office back. Please note, this documentation has been converted into the Zumper EHR from our [employer] EMR forinformational purposes only. This documentation must not be released or used for legal purposes as the note is missing the responsible provider???s signature. A copy of the legal medical record can be obtained or printed only from the [employer] EMR. cc send to Susan Olvera Pavelock Please note, this documentation has been converted into the Zumper EHR from our [employer] EMR forinformational purposes only. This documentation must not be released or used for legal purposes as the note is missing the responsible provider???s signature. A copy of the legal medical record can be obtained or printed only from the [employer] EMR. documented in this encounter Plan of Treatment Upcoming Encounters Date Type Specialty Care Team Description 05/25/2025 Office Visit [place] [address] [place] [address] [phone] 08/03/2025 Office Visit Pain Medicine Patricia Sotelo PA [address] [place] [address] documented as of this encounter Visit Diagnoses Not on filedocumented in this encounter Additional Health Concerns Infection Onset Date Last Indicated Resolved Time COVID-19 Rule Out Comment:04/29/2020 Negative (PAT) 02/20/2020 COVID19 NEGATIVE (PAT) 02/23/2020 02/23/2020 02/23/2020 10:42 AM EDT documented as of this encounter Care Teams Satellite Tv Installer Relationship Specialty Start Date End Date Joe Delaney MD [address] [place] [address] PCP - General Internal Medicine 11/17/18 [place] [address] [place] [address] Referring Physician Internal Medicine 11/17/18 Wan Rodríguez [facility] Gianna [facility] [place] [address] 06/02/19 Rozina Petersen MD Gastroenterology 03/30/20 documented as of this encounter
--- OUTSIDE RECORDS SUMMARY | 2025-04-01 12:13 | XMS_ITS | Encounter Summary ---
Author Organization [facility] Address [address] [place] [address] Phone Care Team Providers Care Baseball Hand Sewer Name Role Phone Joe Delaney MD Primary Care Provider Twan Davis MD Unavailable [phone] Wan Rodríguez Unavailable [phone] Rozina Petersen MD Unavailable Encounter Details Date Type Department Care Team Description 01/11/2016 Conversion Internal Medicine [address] [place] [phone] Joe Delaney MD [facility] [place] [phone] Social History Tobacco Use Types Packs/Day Years [...] Joe Delaney MD; [facility]: [facility] [phone]*, [address] [place] [address], Ph: [phone] or [phone], Fax: [phone] ---- Converted from flag ---- ---- 01/06/2016 [...] 01/11/2016 Method used: Electronically to [facility] [phone]* (retail) [address] [place] [address] Ph: [phone] or [phone] Fax: [phone] RxID: [id number] Please note, this documentation has been converted into the O-film EHR from our [employer] EMR forinformational purposes only. This documentation must not be released or used for legal purposes as the note is missing the responsible provider???s signature. A copy of the legal medical record can be obtained or printed only from the [employer] EMR. documented in this encounter Plan of Treatment Upcoming Encounters Date Type Specialty Care Team Description 05/25/2025 Office Visit Internal Medicine Joe Delaney MD [address] [place] [address] [phone] 08/03/2025 Office Visit Pain Medicine Patricia Sotelo PA [address] [place], [place] [phone] documented as of this encounter Visit Diagnoses Not on filedocumented in this encounter Additional Health Concerns Infection Onset Date Last Indicated Resolved Time COVID-19 Rule Out Comment:04/29/2020 Negative (PAT) 02/20/2020 COVID19 NEGATIVE (PAT) 02/23/2020 02/23/2020 02/23/2020 10:42 AM EDT documented as of this encounter Care Teams Baseball Hand Sewer Relationship Specialty Start Date End Date Joe Delaney MD [address] [place], [place] [phone] PCP - General Internal Medicine 11/17/18 Twan Davis MD [address] [place] [address] Referring Physician Internal Medicine 11/17/18 Wan Rodríguez [facility] [place] [address] 06/02/19 Rozina Petersen MD Gastroenterology 03/30/20 documented as of this encounter
--- OUTSIDE RECORDS SUMMARY | 2025-04-01 12:13 | XMS_ITS | Encounter Summary ---
Author Organization [facility] Address [address] [place] [address] Phone Care Team Providers Care Telecasting Engineer Name Role Phone Joe Delaney MD Primary Care Provider [phone] Twan Davis MD Unavailable [phone] Wan Rodríguez Unavailable [phone] Rozina Petersen MD Unavailable Encounter Details Date Type Department Care Team Description 12/14/2015 Conversion Internal Medicine [address] [place] [phone] Peyton Darling NP [address] [place] [address] Social History Tobacco Use Types Packs/Day Years Used Date Smoking Tobacco: Never Assessed Sex Assigned at Date Recorded Male 03/28/2020 2:09 AM E DT Job Start Date Occupation Industry Not on file Not on file Not on file documented as of this encounter Progress Notes * Peyton Darling NP - 12/14/2015 10:57 AM EDT Phone Note Caller's Name: thaddeus from [facility] Call Details: Thaddeus from [facility] called. Additional comments: Caller wants pre op clearance and ekg faxed to [phone] Please advise thank you. Emili Curtis LPN December 14, 2015 10:57 AM . Taken by: Emili Curtis LPN on December 14, 2015 10:57 AM DCG to review and sign off. Please note, this documentation has been converted into the Epic EHR from our [employer] EMR forinformational purposes only. This documentation must not be released or used for legal purposes as the note is missing the responsible provider???s signature. A copy of the legal medical record can be obtained or printed only from the [employer] EMR. pre op faxed to above number. Please note, this documentation has been converted into the Epic EHR from our [employer] EMR forinformational purposes only. This documentation must not be released or used for legal purposes as the note is missing the responsible provider???s signature. A copy of the legal medical record can be obtained or printed only from the [employer] EMR. documented in this encounter Plan of Treatment Upcoming Encounters Date Type Specialty Care Team Description 05/25/2025 Office Visit Internal Medicine Joe Delaney MD [address] [place] [address] [phone] 08/03/2025 Office Visit Pain Medicine Patricia Sotelo PA [address] [place] [address] documented as of this encounter Visit Diagnoses Not on filedocumented in this encounter Additional Health Concerns Infection Onset Date Last Indicated Resolved Time COVID-19 Rule Out Comment:04/29/2020 Negative (PAT) 02/20/2020 COVID19 NEGATIVE (PAT) 02/23/2020 02/23/2020 02/23/2020 10:42 AM EDT documented as of this encounter Care Teams Telecasting Engineer Relationship Specialty Start Date End Date Joe Delaney MD [facility] [place] [address] PCP - General Internal Medicine 11/17/18 [place] [address] [place] [address] Referring Physician Internal Medicine 11/17/18 Wan Rodríguez Ronakhumaira Katz [facility] [place] [address] 06/02/19 Rozina Petersen MD Gastroenterology 03/30/20 documented as of this encounter
--- OUTSIDE RECORDS SUMMARY | 2025-04-01 12:13 | XMS_ITS | Encounter Summary ---
Author Organization [facility] Address [address] [place] [address] Phone Care Team Providers Care Press Set Up Person Name Role Phone Joe Delaney MD Primary Care Provider Twan Davis MD Unavailable [phone] Wan Rodríguez Unavailable Rozina Petersen MD Unavailable Encounter Details Date Type Department Care Team Description 05/10/2016 Conversion Internal Medicine [address] [place] [address] Joe Delaney MD [address] [place], [place] [id number] Social History Tobacco Use Types Packs/Day Years Used Date Smoking Tobacco: Never Assessed Sex Assigned at Date Recorded Male 03/28/2020 2:09 AM E DT Job Start Date Occupation Industry Not on file Not on file Not on file documented as of this encounter Plan of Treatment Upcoming Encounters Date Type Specialty Care Team Description 05/25/2025 Office Visit Internal Medicine Joe Delaney MD [address] [place], [place] [id number] 08/03/2025 Office Visit Pain Medicine Patricia Sotelo PA [address] [place] [address] documented as of this encounter Procedures Procedure Name Priority Date/Time Associated Diagnosis Comments PSA Routine 05/10/2016 8:08 AM EDT COMPREHENSIVE METABOLIC PANEL Routine 05/10/2016 8:08 AM EDT documented in this encounter Results * (ABNORMAL) PSA (05/10/2016 8:08 AM EDT) PSA, total 8.96(H) 0.00 - 4.00 ng/mL AP DIAZ Comment: Serum concentrations, regardless of value, should not be interpreted as absolute evidence for the presence or absence of malignant disease. [employer], IEMD methodology. Values obtained with different methods or kits cannot be used interchangeably. 05/10/2016 8:08 AM EDT 05/10/2016 8:15 AM EDT Narrative AP DIAZ - 05/10/2016 10:30 AM EDT Bloodwork is non-fasting. ~From the start date you can goto the lab any day that week. If you use our lab, you do not need to bring lab slip with you. ~DO IN AM Joe Delaney MD LAB BLOOD ORDERABLES AP DIAZ [address] [facility]. [place], [place] [phone] * Comprehensive metabolic panel (05/10/2016 8:08 AM [...] [facility] Comment:If patient is Radha n Australian multiply result by 1.212 Alb/Glob ratio 1.8 [...] need to bring lab slip with you. ~DO IN AM Joe Delaney MD LAB BLOOD ORDERABLES AP DIAZ [address] [facility]. [place], [place] [phone] documented in this encounter Visit Diagnoses Not on filedocumented in this encounter Additional Health Concerns Infection Onset Date Last Indicated Resolved Time COVID-19 Rule Out Comment:04/29/2020 Negative (PAT) 02/20/2020 COVID19 NEGATIVE (PAT) 02/23/2020 02/23/2020 02/23/2020 10:42 AM EDT documented as of this encounter Care Teams Press Set Up Person Relationship Specialty Start Date End Date Joe Delaney MD [address] [place] [address] PCP - General Internal Medicine 11/17/18 Twan Davis MD [address] [place] [address] Referring Physician Internal Medicine 11/17/18 Wan Rodríguez [facility] [place] [address] 06/02/19 Rozina Petersen MD Gastroenterology 03/30/20 documented as of this encounter
--- OUTSIDE RECORDS SUMMARY | 2025-04-01 12:13 | XMS_ITS | Encounter Summary ---
Author Organization [facility] Address [address] [place] [address] Phone Care Team Providers Care Motion Picture Photographer Name Role Phone Joe Mensah MD Primary Care Provider [phone] Twan Davis MD Unavailable [phone] Wan Rodríguez Unavailable [phone] Rozina Petersen MD Unavailable Encounter Details Date Type Department Care Team Description 03/27/2017 Conversion Orthopedics [address] [place], [place] [id number] Eleanor Mcfarland PA [address] [place] [address] Social History Tobacco Use Types Packs/Day Years Used Date Smoking Tobacco: Never Assessed Sex Assigned at Date Recorded Male 03/28/2020 2:09 AM E DT Job Start Date Occupation Industry Not on file Not on file Not on file documented as of this encounter Progress Notes * CHADNRA Thompson - 03/27/2017 2:48 AM EDT 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 Had high PSA but not Ca. [...] social Drug use: never Employment: working Occupation: [employer] Work related injury? no Comp Case: no [...] PRIMARY LOCALIZED OSTEOARTHRITIS OF RIGHT KNEE (ICD-715.16) (TTI18-G03.11) -- KNEE PAIN, RIGHT (ICD-719.46) ([id number]) -- Removed/Resolved Problems: OSTEOARTHRITIS, KNEE, RIGHT (ICD-715.96) [...] - Reason: Regimen completed New Orders: SNOMED-CT: [id number] Patient Encounter for Meaningful Use [[id number]] Fred was given his 1st Cortisone injection [...] this documentation has been converted into the [employer] EHR from our [employer] EMR forinformational purposes only. This documentation must not be released or used for legal purposes as the note is missing the responsible provider???s signature. A copy of the legal medical record can be obtained or printed only from the [employer] EMR. Injections Injections Dx for orders: PRIMARY LOCALIZED OSTEOARTHRITIS OF RIGHT KNEE ([id number]) Dx for orders: KNEE PAIN; RIGHT ([id number]) Kenalog dosage given: 1ML/40MG Kenalog strength: 10ML/400MG Kenalog: Done Kenalog wasted: NONE Kenalog given by: FRANCOIS ARTIS Kenalog Time given: 2:30PM Kenalog Mfr: BRISTOL RICHARDSON Kenalog Rte: Intra-articular Kenalog Lot: [id number] Kenalog [facility] number: [phone] Kenalog Exp Date: Kenalog Site: right knee Lidocaine dosage given: 2ML/40MG Lidocaine: given Lidocaine wasted: NONE Lidocaine given by: FRANCOIS ARTIS Lidocaine Time given: 2:30PM Lidocaine Medication provided by: floor-stock Lidocaine Mfr: Hospira Lidocaine Rte: Intra-articular Lidocaine Lot: [id number] Lidocaine ND number: [id number] Lidocaine Exp Date: Lidocaine Site: right knee Dx for orders: PRIMARY LOCALIZED OSTEOARTHRITIS OF RIGHT KNEE ([id number]) Dx for orders: KNEE PAIN; RIGHT ([id number]) Marcaine dosage given: 2ML/10MG Marcaine: given Marcaine wasted: NONE Marcaine given by: FRANCOIS Velasquez Time given: 2:30PM Marcaine Medication provided by: floor-stock Marcaine Mfr: Hospira Marcaine Rte: intra-articular Marcaine Lot: [id number] Marcaine [facility] number: [id number] Marcaine Exp Date: Marcaine Site: right knee Changes - Added new Service order of Kenalog 40 mg ([id number]) - Signed Please note, this documentation has been converted into the [employer] EHR from our 4th aspect EMR forinformational purposes only. This documentation must not be released or used for legal purposes as the note is missing the responsible provider???s signature. A copy of the legal medical record can be obtained or printed only from the [employer]th aspect EMR. documented in this encounter Plan of Treatment Upcoming Encounters Date Type Specialty Care Team Description 05/25/2025 Office Visit [place] [address] [place] [address] [id number] 08/03/2025 Office Visit Pain Medicine Patricia Sotelo PA [address] [place], [place] [phone] documented as of this encounter Visit Diagnoses Not on filedocumented in this encounter Additional Health Concerns Infection Onset Date Last Indicated Resolved Time COVID-19 Rule Out Comment:04/29/2020 Negative (PAT) 02/20/2020 COVID19 NEGATIVE (PAT) 02/23/2020 02/23/2020 02/23/2020 10:42 AM EDT documented as of this encounter Care Teams Motion Picture Photographer Relationship Specialty Start Date End Date Joe Mensah MD [address] [place] [address] PCP - General Internal Medicine 11/17/18 [place] [address] [place] [address] Referring Physician Internal Medicine 11/17/18 Wan Rodríguez [facility] [place] [address] 06/02/19 Rozina Petersen MD Gastroenterology 03/30/20 documented as of this encounter
--- OUTSIDE RECORDS SUMMARY | 2025-04-01 12:13 | XMS_ITS | Encounter Summary ---
Author Organization [facility] Address [address] [place] [address] Phone Care Team Providers Care Rand Cementer Name Role Phone Joe Delaney MD Primary Care Provider [phone] Twan Davis MD Unavailable [phone] Wan Rodríguez Unavailable [phone] Rozina Petersen MD Unavailable Encounter Details Date Type Department Care Team Description 02/07/2016 Conversion Internal Medicine [address] [place] [address] Joe Delaney MD [address] [place] [address] Social History Tobacco Use Types Packs/Day [...] converted into the Epic EHR from our [employer] EMR forinformational purposes only. This documentation must not be released or used for legal purposes as the note is missing the responsible provider???s signature. A copy of the legal medical record can be obtained or printed only from the [employer] EMR. Patient aware of above. Please note, this documentation has been converted into the Epic EHR from our [employer] EMR forinformational purposes only. This documentation must not be released or used for legal purposes as the note is missing the responsible provider???s signature. A copy of the legal medical record can be obtained or printed only from the [employer] EMR. documented in this encounter Plan of Treatment Upcoming Encounters Date Type Specialty Care Team Description 05/25/2025 Office Visit Internal Medicine Joe Delaney MD [address] [place], [place] [phone] 08/03/2025 Office Visit Pain Medicine Patricia Sotelo PA [address] [place] [address] documented as of this encounter Visit Diagnoses Not on filedocumented in this encounter Additional Health Concerns Infection Onset Date Last Indicated Resolved Time COVID-19 Rule Out Comment:04/29/2020 Negative (PAT) 02/20/2020 COVID19 NEGATIVE (PAT) 02/23/2020 02/23/2020 02/23/2020 10:42 AM EDT documented as of this encounter Care Teams Rand Cementer Relationship Specialty Start Date End Date Joe Delaney MD [address] [place], [place] [phone] PCP - General Internal Medicine 11/17/18 Twan Davis MD [address] [place] [address] Referring Physician Internal Medicine 11/17/18 Wan Rodríguez [facility][Note 2] Gianna [facility] [place] [address] 06/02/19 Rozina Petersen MD Gastroenterology 03/30/20 documented as of this encounter
--- OUTSIDE RECORDS SUMMARY | 2025-04-01 12:13 | XMS_ITS | Continuity of Care Document ---
Author Organization [facility] Address [address] [facility], [address] [place] [address] Phone [phone] Care Team Providers Care Professional Volleyball Player Name Role Phone Patricia Sotelo Care Team Information Receive r [phone] Joe Delaney M.D. Care Team Information Recei marlon [phone] Problems Active Problems Provider Date Essential hypertension CHANDRA Kramer Onse t: 10/01/2024 Atrial fibrillation CHANDRA Kramer Onset: 10/01/2024 Social History Type Date Description Comments Sex Male Sex Unknown ETOH Use Denies alcohol use Tobacco Use Start: Unknown Does Not Currently Smoke Recreational Drug Use Denies Drug Use Allergies and adverse reactions Active Allergies Criticality Reaction Severity Comments Date Penicillin Unable to assess criticality 10/01/2024 Medications Active Medications SIG Qnty Indications Ordering Provider Date [id number] Tablets Unknown Losartan [id number] Tablets Joe Delaney M.D. Vital Signs Date Vital Result Comment 10/01/2024 10:14am Height 73.5 inches 6'1.50 Weight 223.25 lb BMI (Body Mass Index) 29.1 kg/m2 Medical Devices Description No Information Available Encounters Description No Information Available Assessments Description No Information Available Plan of Treatment No Information Available Functional Status Functional Condition Comment Date Status .None Active Mental Status Description No Information Available Referrals Description No Information Available
--- OUTSIDE RECORDS SUMMARY | 2025-04-01 12:13 | XMS_ITS | Continuity of Care Document ---
Author Organization [facility] Address [address] [place] [address] [address] cast[address], [address] [place] [address] Phone [phone] Care Team Providers Care Personal Computer Network Engineer Name Role Phone Joe Delaney MD Care Team Information Receive r Unavailable WOLFGANG SEN MD Care Team Information Receiv er Unavailable Joe Delaney MD Primary Care Physician Ezra barnes
--- OUTSIDE RECORDS SUMMARY | 2025-04-01 12:13 | XMS_ITS | Encounter Summary ---
Author Organization [facility] Address [address] [place] [address] Phone Care Team Providers Care Development Chemist Name Role Phone Joe Delaney MD Primary Care Provider [phone] Twan Davis MD Unavailable [phone] Wan Rodríguez Unavailable Rozina Petersen MD Unavailable Encounter Details Date Type Department Care Team Description 09/17/2016 Conversion Internal Medicine [address] [place] [address] Joe Delaney MD [address] [place], [place] [phone] Social History Tobacco Use Types Packs/Day Years Used Date Smoking Tobacco: Never Assessed Sex Assigned at Date Recorded Male 03/28/2020 2:09 AM E DT Job Start Date Occupation Industry Not on file Not on file Not on file documented as of this encounter Plan of Treatment Upcoming Encounters Date Type Specialty Care Team Description 05/25/2025 Office Visit Internal Medicine Joe Delaney MD [address] [place], [place] [phone] 08/03/2025 Office Visit Pain Medicine Patricia Sotelo PA [address] [place] [address] documented as of this encounter Procedures Procedure [...] MD LAB BLOOD ORDERABLES Performing Organization Address City/[facility]/ZIP Co de Phone Number AP DIAZ [address] [facility] [place], [place] [phone] * T4, free (09/17/2016 8:21 AM EST) Free T4 1.05 0.75 - 1.54 ng/dL [facility] 09/17/2016 8:21 AM EST 09/17/2016 8:25 AM EST Narrative [facility] - 09/17/2016 11:20 AM EST Joe Delaney MD LAB BLOOD ORDERABLES Performing Organization Address [facility] Co de Phone Number NITA JOE [address] [facility] [place], [place] [phone] * (ABNORMAL) CBC (09/17/2016 8:21 AM EST) [...] MD LAB BLOOD ORDERABLES FREQUENCY AP DIAZ [address] [place], [place] [phone] * (ABNORMAL) Comprehensive metabolic panel (09/17/2016 8:21 [...] [facility] Comment:If patient is Radha n Afghan multiply result by 1.212 Alb/Glob ratio 1.8 1.2 - 1.8 [facility] Globulin 2.5 1.6 - 3.9 g/dL [facility] 09/17/2016 8:21 AM EST 09/17/2016 8:25 AM EST Narrative [facility] - 09/17/2016 9:16 AM EST Joe Delaney MD LAB BLOOD ORDERABLES Performing Organization Address City/State/[facility] Co de Phone Number [facility] [address] [place] [address]. [place], [place] [phone] * Lipid panel (09/17/2016 8:21 AM EST) Cholesterol 169 136 - 200 mg/dL [facility] Comment: Cholesterol Risk Levels Recommended under 200mg/dl Borderline 200-239mg/dl High Risk above 240mg/dl Triglycerides 122 48 - 200 mg/dL [facility] HDL 41 35 - 92 mg/dL [facility] LDL Cholesterol 104 0 - 140 mg/dL [facility] Chol/HDL Ratio 4.2 3.4 - 24.0 [facility] Total Wqe-MDY-Jkry (LDL+VLDL) 128.5 30.0 - 130.0 mg/dl AP [facility] 09/17/2016 8:21 AM EST 09/17/2016 8:25 AM EST Narrative AP D[facility] - 09/17/2016 9:16 AM EST Fasting 8-10 hours, can have water, black coffee, black tea. No cream, No sugar ~From the start date you can goto the lab any day that week. If you use our lab, you do not need to bring lab slip with you. ~Our lab opens at 7:30 am M-F, and 9 am on Sat and Sun. Joe Delaney MD LAB BLOOD ORDERABLES AP DIAZ [address] [place], [place] [phone] documented in this encounter Visit Diagnoses Not on filedocumented in this encounter Additional Health Concerns Infection Onset Date Last Indicated Resolved Time COVID-19 Rule Out Comment:04/29/2020 Negative (PAT) 02/20/2020 COVID19 NEGATIVE (PAT) 02/23/2020 02/23/2020 02/23/2020 10:42 AM EDT documented as of this encounter Care Teams Development Chemist Relationship Specialty Start Date End Date Joe Delaney MD [address] [place] [address] PCP - General Internal Medicine 11/17/18 [place] [address] [place] [address] Referring Physician Internal Medicine 11/17/18 Wan Rod[facility]guez [facility] [place] [address] 06/02/19 Rozina Petersen MD Gastroenterology 03/30/20 documented as of this encounter
--- OUTSIDE RECORDS SUMMARY | 2025-04-01 12:13 | XMS_ITS | Encounter Summary ---
Author Organization [facility] Address [address] [place] [address] Phone Care Team Providers Care Business Manager College Or University Name Role Phone Joe Delaney MD Primary Care Provider [phone] Twan Davis MD Unavailable [phone] Wan Rodríguez Unavailable [phone] Rozina Petersen MD Unavailable Encounter Details Date Type Department Care Team Description 01/20/2025 Email from [employer] Internal Medicine [address] [place] [address] Joe Delaney MD [address] [place] [address] Social History Tobacco Use Types Packs/Day [...] suspected to have Coronavirus/COVID-19? No / Unsure 01/22/2025 11:51 AM EDT documented as of this encounter Plan of Treatment Upcoming Encounters Date Type Specialty Care Team Description 05/25/2025 Office Visit Internal Medicine Joe Delaney MD [address] [place] [address] 08/03/2025 Office Visit Pain Medicine Patricia Sotelo PA [address] [place], [place] [phone] documented as of this encounter Visit Diagnoses Not on filedocumented in this encounter Care Teams Business Manager College [employer] Relationship Specialty Start Date End Date Joe Delaney MD [address] [place] [address] PCP - General Internal Medicine 11/17/18 Twan Davis MD [address] [place] [address] Referring Physician Internal Medicine 11/17/18 Wan Rodríguez [facility] [place] [address] 06/02/19 Rozina Petersen MD Gastroenterology 03/30/20 documented as of this encounter
--- OUTSIDE RECORDS SUMMARY | 2025-04-01 12:13 | XMS_ITS | Encounter Summary ---
Author Organization [facility] Address [address] [place] [address] Phone Care Team Providers Care Digital Photo Printer Name Role Phone Joe Delaney MD Primary Care Provider [phone] Twan Davis MD Unavailable [phone] Wan Rodríguez Unavailable [phone] Rozina Petersen MD Unavailable Encounter Details Date Type Department Care Team Description 12/01/2015 Conversion Internal Medicine [address] [place], [place] [phone] Peyton Darling NP [address] [place] [address] Social History Tobacco Use Types Packs/Day Years [...] surgery scheduled with Dr. Etta Mclean in [place] on 12/20/15. The pt notes a decrease in visual acuity. Pt denies a hx of an DE, CHF, CVA, CP, claudication, +palpitations, syncope, near [...] BPH. Past Surgical History: Tonsillectomy, childhood; . Coffeen teeth extracted;. Dental implants. . Prost bx. Medications: (prior to this visit) - verified by patient or patient installation service representative LOSARTAN POTASSIUM 100 MG TABS [...] (07/18/2012) FLU VAX: 05/20/2015 Assessment CATARACT (ICD-366.9) (SCF30-Z99.9) PREOPERATIVE EXAMINATION NEC (ICD-V72.83) (IHI15-B79.818) Comments: PMH as listed. New onset A-fib, now in sinus rhythm. Plan Comments: Most recent EKG by Dr. Salguero revealed that he was back in a NSR. Append to follow. New Orders: SNOMED-CT: [id number] Patient Encounter for Meaningful Use [[id number]] Injections Medication List Reviewed Allergy List Reviewed Please note, this documentation has been converted into the [employer] EHR from our [employer] EMR forinformational purposes only. This documentation must not be released or used for legal purposes as the note is missing the responsible provider???s signature. A copy of the legal medical record can be obtained or printed only from the [employer] EMR. Pt currently under Dr. Salguero's care for new onset a-fib. We prefer that he remain on Eliquis unless Dr. Mclean informs us otherwise. Suitable for cataract surgery. Please note, this documentation has been converted into the [employer] EHR from our [employer] EMR forinformational purposes only. This documentation must not be released or used for legal purposes as the note is missing the responsible provider???s signature. A copy of the legal medical record can be obtained or printed only from the [employer] EMR. agree Please note, this documentation has been converted into the [employer] EHR from our [employer] EMR forinformational purposes only. This documentation must not be released or used for legal purposes as the note is missing the responsible provider???s signature. A copy of the legal medical record can be obtained or printed only from the [employer] EMR. pre op faxed Please note, this documentation has been converted into the Epic EHR from our [employer] EMR forinformational purposes only. This documentation must not be released or used for legal purposes as the note is missing the responsible provider???s signature. A copy of the legal medical record can be obtained or printed only from the [employer] EMR. documented in this encounter Plan of Treatment Upcoming Encounters Date Type Specialty Care Team Description 05/25/2025 Office Visit [place] [address] [place] [phone] 08/03/2025 Office Visit Pain Medicine Patricia Sotelo PA [address] [place] [address] documented as of this encounter Visit Diagnoses Not on filedocumented in this encounter Additional Health Concerns Infection Onset Date Last Indicated Resolved Time COVID-19 Rule Out Comment:04/29/2020 Negative (PAT) 02/20/2020 COVID19 NEGATIVE (PAT) 02/23/2020 02/23/2020 02/23/2020 10:42 AM EDT documented as of this encounter Care Teams Digital Photo Printer Relationship Specialty Start Date End Date Joe Delaney MD [address] [place] [address] PCP - General Internal Medicine 11/17/18 [place] [address] [place] [address] Referring Physician Internal Medicine 11/17/18 Wan Rodríguez [facility] Gianna [facility] [place] [address] 06/02/19 Rozina Petersen MD Gastroenterology 03/30/20 documented as of this encounter
--- OUTSIDE RECORDS SUMMARY | 2025-04-01 12:13 | XMS_ITS | Encounter Summary ---
Author Organization [facility] Address [address] [place] [address] Phone Care Team Providers Care Marketing Planner Name Role Phone Joe Mensah MD Primary Care Provider Twan Davis MD Unavailable [phone] Wan Rodríguez Unavailable [phone] Rozina Petersen MD Unavailable Encounter Details Date Type Department Care Team Description 12/08/2015 Conversion Private Practice - Procedural [address] [place] [phone] Geronimo Salguero MD [address] [place] [address] Social History Tobacco Use Types Packs/Day Years [...] to the neck. Occasional dyspnea. RE: JEANA SOLANOO Daysi DOS: 12/08/2015 PK/htsef Job: [id number] Ejection Fraction: 60-65 (11/11/2015) Total Cholesterol: 158 (05/09/2015) LDL: 98 HDL: 36 Triglyceride: 120 Past Medical History(reviewed history from 12/01/2015- no changes required): Htn. Elev PSA. . Back Pain. A-fib;. Gerd. Allergic rhinitis. BPH. Past Surgical History: Tonsillectomy, childhood; . [place]ondo teeth extracted;. Dental implants. . Prost bx. [...] Number of Children: 3;. Place of : [place];. 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 Sleep History: 6-8 hrs;. Travel History: [place];. Tobacco use: never smoker. Alcohol use:yes. Alcohol [...] enlarged lymph nodes. Previous Problems: CATARACT (ICD-366.9) (QFT74-Y42.9) PREOPERATIVE EXAMINATION NEC (ICD-V72.83) (KYK75-M41.818) ATRIAL FIBRILLATION (ICD-427.31) (EXR88-V78.0) LUMBAGO (ICD-724.2) (WVK38-Y64.5) HX OF BEE STING ALLERGY (ICD-V15.06) (XZV52-O23.030) ESSENTIAL HYPERTENSION (ICD-401.9) (WNS93-Z97) SHORTNESS OF BREATH (ICD-786.05) (RSF70-S70.02) OSTEOARTHRITIS, KNEE, RIGHT (ICD-715.96) (HOU27-Q49.9) INGROWING NAIL (ICD-703.0) (OVM05-F08.0) KNEE PAIN, RIGHT (ICD-719.46) (LEB39-W33.561) ? of ADENOCARCINOMA, PROSTATE (ICD-185) (YBI17-Z92) Sx of DEGENERATIVE JOINT DISEASE, KNEE (ICD-715.96) (NOP57-H22.9) BENIGN PROSTATIC HYPERPLASIA (ICD-600.00) (YQA19-U99.0) PSA, INCREASED (ICD-790.93) (MTO11-F93.2) SPRAIN/STRAIN NOS (ICD-848.9) (NCN26-B65.8) SCREENING FOR UNSPECIFIED CONDITION (ICD-V82.9) (CFP42-I02.9) SCREENING FOR LIPOID DISORDERS (ICD-V77.91) (GMC93-I58.220) ALLERGIC RHINITISCAUSE UNSPECIFIED (ICD-477.9) POSTNASAL DRIP (ICD-784.91) (RRK55-F69.82) GERD (ICD-530.81) (ZSG72-M83.9) ALLERGIES: PCN (Moderate) AMLODIPINE BESYLATE (AMLODIPINE BESYLATE) (Moderate) PENICILLIN (Moderate) Previous Medications: - verified by patient or patient artist's representative LOSARTAN POTASSIUM 100 MG TABS (LOSARTAN [...] focal findings Assessment ATRIAL FIBRILLATION, PAROXYSMAL (ICD-427.31) (QRJ36-E59.0) CHEST DISCOMFORT (ICD-786.59) (GVG24-G40.89) DYSPNEA (ICD-786.09) (QAE43-D17.00) Plan Medications (added/changed): ELIQUIS 5 MG TABS (APIXABAN) one po bid New Orders: SNOMED-CT: [id number] Patient Encounter for Meaningful Use [[id number]] Myocardial SPECTmulti studies, at rest & or stress with EF & wall motion [NMMYOCARDE/CPT-[id number]] IMPRESSION AND PLAN: 1. Dyspnea and chest discomfort. Will evaluate further with an exercise Cardiolite stress test. 2. Paroxysmal atrial fibrillation. Status post loop recorder implantation. Current loop transmission showed only sinus rhythm. I reviewed the tracing. Followup after the stress test. RE: JEANA SOLANOO Daysi DOS: 12/08/2015 PK/htsef Job: [id number] cc: JOE MENSAH M.D. Please note, this documentation has been converted into the [employer] EHR from our [employer] EMR forinformational purposes only. This documentation must not be released or used for legal purposes as the note is missing the responsible provider???s signature. A copy of the legal medical record can be obtained or printed only from the [employer] EMR. documented in this encounter Plan of Treatment Upcoming Encounters Date Type Specialty Care Team Description 05/25/2025 Office Visit [place] [address] [place] [address] [phone] 08/03/2025 Office Visit [place] [address] [place] [address] documented as of this encounter Visit Diagnoses Not on filedocumented in this encounter Additional Health Concerns Infection Onset Date Last Indicated Resolved Time COVID-19 Rule Out Comment:04/29/2020 Negative (PAT) 02/20/2020 COVID19 NEGATIVE (PAT) 02/23/2020 02/23/2020 02/23/2020 10:42 AM EDT documented as of this encounter Care Teams Marketing Planner Relationship Specialty Start Date End Date Joe Mensah MD [address] [place], [place] [phone] PCP - General Internal Medicine 11/17/18 [place] [address] [place] [address] Referring Physician Internal Medicine 11/17/18 Wan Rodríguez [facility] Gianna [facility] [place] [address] 06/02/19 Rozina Petersen MD Gastroenterology 03/30/20 documented as of this encounter
--- OUTSIDE RECORDS SUMMARY | 2025-04-01 12:13 | XMS_ITS | Encounter Summary ---
Author Organization [facility] Address [address] [place] [address] Phone Care Team Providers Care Anchor Operator Name Role Phone Joe Delaney MD Primary Care Provider [phone] Twan Davis MD Unavailable [phone] Wan Rodríguez Unavailable [phone] Rozina Petersen MD Unavailable Encounter Details Date Type Department Care Team Description 02/10/2020 Email from [facility] [address] [place] [address] Param Scott Ud, MD [address] [place] [address] Social History Tobacco Use Types Packs/Day [...] Office Visit Internal Medicine Joe Delaney MD [address] [place], [place] [phone] 08/03/2025 Office Visit Pain Medicine Patricia Sotelo PA [address] [place], [place] [phone] documented as of this encounter Visit Diagnoses Not on filedocumented in this encounter Additional Health Concerns Infection Onset Date Last Indicated Resolved Time COVID-19 Rule Out Comment:04/29/2020 Negative (PAT) 02/20/2020 COVID19 NEGATIVE (PAT) 02/23/2020 02/23/2020 02/23/2020 10:42 AM EDT documented as of this encounter Care Teams Anchor Operator Relationship Specialty Start Date End Date Joe Delaney MD [address] [place] [address] PCP - General Internal Medicine 11/17/18 Twan Davis MD [address] [place] [address] Referring Physician Internal Medicine 11/17/18 Wan Rodríguez [facility] Vlad Katz [facility] [address] 06/02/19 Rozina Petersen MD Gastroenterology 03/30/20 documented as of this encounter
--- OUTSIDE RECORDS SUMMARY | 2025-04-01 12:13 | XMS_ITS | Encounter Summary ---
Author Organization [facility] Address [address] [place] [address] Phone Care Team Providers Care Transplant Worker Name Role Phone Joe Delaney MD Primary Care Provider Twan Davis MD Unavailable [phone] Wan Rodríguez Unavailable Rozina Petersen MD Unavailable Encounter Details Date Type Department Care Team Description 02/23/2020 Abstract Infection Prevention [address] [place] [phone] Angelina Brothers Social History Tobacco Use Types [...] Visit Internal Medicine Joe Delaney MD [address] [place], [place] [phone] 08/03/2025 Office Visit Pain Medicine Patricia Sotelo PA [address] [place] [address] documented as of this encounter Visit Diagnoses Not on filedocumented in this encounter Additional Health Concerns Infection Onset Date Last Indicated Resolved Time COVID-19 Rule Out Comment:04/29/2020 Negative (PAT) 02/20/2020 COVID19 NEGATIVE (PAT) 02/23/2020 02/23/2020 02/23/2020 10:42 AM EDT documented as of this encounter Care Teams Transplant Worker Relationship Specialty Start Date End Date Joe Delaney MD [facility] [place] [address] PCP - General Internal Medicine 11/17/18 Twan Davis MD [address] [place] [address] Referring Physician Internal Medicine 11/17/18 Wan Rodríguez [facility] [place] [address] 06/02/19 Rozina Petersen MD Gastroenterology 03/30/20 documented as of this encounter
--- OUTSIDE RECORDS SUMMARY | 2025-04-01 12:13 | XMS_ITS | Encounter Summary ---
Author Organization [facility] Address [address] [place] [address] Phone Care Team Providers Care Sewing Department Supervisor Name Role Phone Joe Delaney MD Primary Care Provider [phone] Twan Davis MD Unavailable [phone] Wan Rodríguez Unavailable [phone] Rozina Petersen MD Unavailable Encounter Details Date Type Department Care Team Description 09/17/2024 Email from [facility] [address] [place] [phone] Joe Delaney MD [address] [place] [address] Social History Tobacco Use Types Packs/Day [...] Visit Internal Medicine Joe Delaney MD [address] [place] [address] 08/03/2025 Office Visit Pain Medicine Patricia Sotelo PA [address] [place], [place] [phone] documented as of this encounter Visit Diagnoses Not on filedocumented in this encounter Care Teams Sewing Department Supervisor Relationship Specialty Start Date End Date Joe Delaney MD [address] [place] [address] PCP - General Internal Medicine 11/17/18 [place] [address] [place] [address] Referring Physician Internal Medicine 11/17/18 Wan Rodríguez [facility] [place] [id number] 06/02/19 Rozina Petersen MD Gastroenterology 03/30/20 documented as of this encounter
--- OUTSIDE RECORDS SUMMARY | 2025-04-01 12:13 | XMS_ITS | Encounter Summary ---
Author Organization [facility] Address [address] [place] [address] Phone Care Team Providers Care Cloth Piecer Name Role Phone Joe Delaney MD Primary Care Provider [phone] wTan Davis MD Unavailable [phone] Wan Rodríguez Unavailable [phone] Rozina Petersen MD Unavailable Encounter Details Date Type Department Care Team Description 12/28/2015 Conversion Internal Medicine [address] [place] [phone] Joe Delaney MD [address] [place] [address] Social History Tobacco Use Types Packs/Day Years [...] : 1950 AGE: [age] year old ACCT: [id number] MR: [id number] ATTENDING : ETHAN TOLEDO MD ROOM: [place] [address] ORDERING: ETHAN TOLEDO MD DATE: 12/27/2015 07:25 P EXAM: SLCT ANGIO HEAD AND NECK ACCN: [id number] HISTORY: Stroke, dizzy for 2 hours, blurred [...] interpretation was provided by Dr. Hilton from [facility] at the time of the examination. FINDINGS: [...] dominant vessel. The visualized basilar is unremarkable. KIVALINA OFWILLIS ANGIOGRAM: There is no evidence of major vessel occlusion or aneurysm larger than 5 mm noted around the [place] of [place]. INCIDENTAL FINDINGS: There is enlargement [...] MD 12/28/2015 12:07 PM lw A DL: [id number] cc: REVIEWED ONLY Please note, this documentation has been converted into the [employer] EHR from our [employer] EMR forinformational purposes only. This documentation must not be released or used for legal purposes as the note is missing the responsible provider???s signature. A copy of the legal medical record can be obtained or printed only from the [employer] EMR. * Joe Delaney MD - 12/28/2015 2:00 AM EDTAssociated Order(s): IMAGING SCAN LINK SLMRI-BRAIN W/WO CMI - MRI - INPATIENT FINAL REPORT ETHAN TOLEDO MD RE: DILIP SOLANO : 1950 ROOM: [place] [address] ACCN: [id number] ACCT: [id number] SCAN PERFORMED ON 12/28/2015 01:[address] [facility] EXAM: SLMRI-BRAIN W/WO CONTRAST CLINICAL [...] Contreras MD 12/28/2015 2:29 PM P P [facility] cc: MD ETHAN CARRION MD REVIEWED ONLY Please note, this documentation has been converted into the [employer] EHR from our [employer] EMR forinformational purposes only. This documentation must not be released or used for legal purposes as the note is missing the responsible provider???s signature. A copy of the legal medical record can be obtained or printed only from the [employer] EMR. documented in this encounter Plan of Treatment Upcoming Encounters Date Type Specialty Care Team Description 05/25/2025 Office Visit Internal Medicine Joe Delaney MD [address] [place] [address] 08/03/2025 Office Visit Pain Medicine Patricia Sotelo PA [address] [place] [address] documented as of this encounter Procedures Procedure [...] : 1950 AGE: [age] year old ACCT: [id number] MR: [id number] ATTENDING : ETHAN TOLEDO MD ROOM: [place] [address] ORDERING: ETHAN TOLEDO MD DATE: 12/27/2015 07:25 P EXAM: SLCT ANGIO HEAD AND NECK ACCN: [id number] HISTORY: Stroke, dizzy for 2 hours, blurred vision. The study was initiated with noncontrast imaging. The patient wasinjected with intravenous contrast and rescanned with submillimeter collimation. Multiple 2-D and 3-D images have been reconstructed. Data has beenviewed on an independent 3-D workstation. 3-D MIP reconstructions wereperformed COMPARISON: CT head obtained earlier today. INITIAL INTERPRETATION: Initial interpretation was provided by Dr. Hilton from [facility] at the time of the examination. FINDINGS: [...] dominant vessel. The visualized basilar is unremarkable. KIVALINA OFWILLIS ANGIOGRAM: There is no evidence of major vesselocclusion or aneurysm larger than 5 mm noted around the [place] of [place]. INCIDENTAL FINDINGS: There is enlargement [...] MD 12/28/2015 12:07 PM lw A DL: [id number] cc: REVIEWED ONLY Please note, this documentation has been converted into the [employer] EHR from[employer] EMR for informational purposes only. This documentationmust not be released or used for legal purposes as the note is missing theresponsible provider s signature. A copy of the legal medical record canbe obtained or printed only from the [employer] EMR. Joe Delaney MD HEALTH MAINTENANCE * IMAGING SCAN LINK (12/28/2015 2:00 AM EDT) Anatomical Region Laterality Modality Other Procedure Note Joe Delaney MD - 12/28/2015 2:00 AM EDT SLMRI-BRAIN W/WO CMI - MRI - INPATIENT FINAL REPORT ETHAN TOLEDO MD RE: JEANA SOLANOO : 1950 ROOM: [place] [address] ACCN: [id number] ACCT: [id number] SCAN PERFORMED ON 12/28/2015 01:[address] [facility] EXAM: SLMRI-BRAIN W/WO CONTRAST CLINICAL [...] this documentation has been converted into the [employer] EHR from[employer] EMR for informational purposes only. This documentationmust not be released or used for legal purposes as the note is missing theresponsible provider s signature. A copy of the legal medical record canbe obtained or printed only from the [employer] EMR. Joe Delaney MD HEALTH MAINTENANCE documented in this encounter Visit Diagnoses Not on filedocumented in this encounter Additional Health Concerns Infection Onset Date Last Indicated Resolved Time COVID-19 Rule Out Comment:04/29/2020 Negative (PAT) 02/20/2020 COVID19 NEGATIVE (PAT) 02/23/2020 02/23/2020 02/23/2020 10:42 AM EDT documented as of this encounter Care Teams Cloth Piecer Relationship Specialty Start Date End Date Joe Delaney MD [facility] [place] [facility]9 [place] [address] PCP - General Internal Medicine 11/17/18 [place] [address] [place] [address] Referring Physician Internal Medicine 11/17/18 Wan Rodríguez [facility] Vlad Katz [facility] [place] [address] 06/02/19 Rozina Petersen MD Gastroenterology 03/30/20 documented as of this encounter
--- OUTSIDE RECORDS SUMMARY | 2025-04-01 12:13 | XMS_ITS | Encounter Summary ---
Author Organization [facility] Address [address] [place] [address] Phone Care Team Providers Care Sales Appointment Coordinator Name Role Phone Joe Delaney MD Primary Care Provider [phone] Twan Davis MD Unavailable [phone] Wan Rodríguez Unavailable [phone] Rozina Petersen MD Unavailable Encounter Details Date Type Department Care Team Description 01/03/2016 Conversion Private Practice - Procedural [address] [place] [phone] Geronimo Salguero MD [address] [place] [address] Social History Tobacco Use Types Packs/Day Years [...] day to METOPROLOL SUCCINATE ER 25 MG [id number] (METOPROLOL SUCCINATE) 1 by mouth twice a day - Signed Please note, this documentation has been converted into the [employer] EHR from our [employer] EMR forinformational purposes only. This documentation must not be released or used for legal purposes as the note is missing the responsible provider???s signature. A copy of the legal medical record can be obtained or printed only from the [employer] EMR. documented in this encounter Plan of Treatment Upcoming Encounters Date Type Specialty Care Team Description 05/25/2025 Office Visit Internal Medicine Joe Delaney MD [address] [place] [phone] 08/03/2025 Office [place] [address] [place] [address] documented as of this encounter Visit Diagnoses Not on filedocumented in this encounter Additional Health Concerns Infection Onset Date Last Indicated Resolved Time COVID-19 Rule Out Comment:04/29/2020 Negative (PAT) 02/20/2020 COVID19 NEGATIVE (PAT) 02/23/2020 02/23/2020 02/23/2020 10:42 AM EDT documented as of this encounter Care Teams Sales Appointment Coordinator Relationship Specialty Start Date End Date Joe Delaney MD [facility]9 [place] [address] PCP - General Internal Medicine 11/17/18 Twan Davis MD [address] [place] [address] Referring Physician Internal Medicine 11/17/18 Wan Rodríguez [facility] Vlad Katz [facility] [place] [address] 06/02/19 Rozina Petersen MD Gastroenterology 03/30/20 documented as of this encounter
--- OUTSIDE RECORDS SUMMARY | 2025-04-01 12:13 | XMS_ITS | Encounter Summary ---
Author Organization [facility] Address [address] [place] [address] Phone Care Team Providers Care Garden Implement Mechanic Name Role Phone Joe Delaney MD Primary Care Provider [phone] Twan Davis MD Unavailable [phone] Wan Rodríguez Unavailable [phone] Rozina Petersen MD Unavailable Encounter Details Date Type Department Care Team Description 11/30/2022 Email from [facility] [address] [place] [phone] Kimberly Herndon PA [address] [place] [address] Social History Tobacco Use Types Packs/Day [...] Office Visit Internal Medicine Joe Delaney MD [address] [place] [address] 08/03/2025 Office Visit Pain Medicine Patricia Sotelo PA [address] [place], [place] [phone] documented as of this encounter Visit Diagnoses Not on filedocumented in this encounter Care Teams Garden Implement Mechanic Relationship Specialty Start Date End Date Joe Delaney MD [address] [place] [address] PCP - General Internal Medicine 11/17/18 Twan Davis MD [address] [place] [address] Referring Physician Internal Medicine 11/17/18 Wan Rodríguez [facility] [place] [address] 06/02/19 Rozina Petersen MD Gastroenterology 03/30/20 documented as of this encounter
--- OUTSIDE RECORDS SUMMARY | 2025-04-01 12:13 | XMS_ITS | Encounter Summary ---
Author Organization [facility] Address [address] [place] [address] Phone Care Team Providers Care Electrification Adviser Name Role Phone Joe Delaney MD Primary Care Provider [phone] Twan Davis MD Unavailable Wan Rodríguez Unavailable [phone] Rozina Petersen MD Unavailable Encounter Details Date Type Department Care Team Description 01/31/2025 Email from [facility] [address] [place] [phone] Patricia Sotelo PA [address] [place] [address] Social History Tobacco Use Types Packs/Day [...] suspected to have Coronavirus/COVID-19? No / Unsure 02/03/2025 7:59 AM EDT documented as of this encounter Plan of Treatment Upcoming Encounters Date Type Specialty Care Team Description 05/25/2025 Office Visit [place] [address] [place] [address] 08/03/2025 Office Visit Pain Medicine Patricia Sotelo PA [address] [place] [address] documented as of this encounter Visit Diagnoses Not on filedocumented in this encounter Care Teams Electrification Adviser Relationship Specialty Start Date End Date Joe Delaney MD [address] [place] [address] PCP - General Internal Medicine 11/17/18 Twan Davis MD [address] [place] [address] Referring Physician Internal Medicine 11/17/18 Wan Rodríguez [facility] [place] [address] 06/02/19 Rozina Petersen MD Gastroenterology 03/30/20 documented as of this encounter
--- OUTSIDE RECORDS SUMMARY | 2025-04-01 12:13 | XMS_ITS | Encounter Summary ---
Author Organization [facility] Address [address] [place] [address] Phone Care Team Providers Care Learning Program Manager Name Role Phone Joe Delaney MD Primary Care Provider [phone] Twan Davis MD Unavailable [phone] Wan Rodríguez Unavailable [phone] Rozina Petersen MD Unavailable Encounter Details Date Type Department Care Team Description 12/29/2015 Conversion Private Practice - Procedural [address] [place] [phone] Geronimo Salguero MD [address] [place] [address] Social History Tobacco Use Types Packs/Day Years [...] this documentation has been converted into the [employer] EHR from our [employer] EMR forinformational purposes only. This documentation must not be released or used for legal purposes as the note is missing the responsible provider???s signature. A copy of the legal medical record can be obtained or printed only from the [employer] EMR. documented in this encounter Plan of Treatment Upcoming Encounters Date Type Specialty Care Team Description 05/25/2025 Office Visit Internal Medicine Joe Delaney MD [address] [place] [address] [phone] 08/03/2025 Office Visit Pain Medicine Patricia Sotelo PA [address] [place] [address] documented as of this encounter Visit Diagnoses Not on filedocumented in this encounter Additional Health Concerns Infection Onset Date Last Indicated Resolved Time COVID-19 Rule Out Comment:04/29/2020 Negative (PAT) 02/20/2020 COVID19 NEGATIVE (PAT) 02/23/2020 02/23/2020 02/23/2020 10:42 AM EDT documented as of this encounter Care Teams Learning Program Manager Relationship Specialty Start Date End Date Joe Delaney MD [facility]9 [place] [address] PCP - General Internal Medicine 11/17/18 [place] [address] [place] [address] Referring Physician Internal Medicine 11/17/18 Wan Rodríguez Rnoakhumaira Katz [facility] [place] [address] 06/02/19 Rozina Petersen MD Gastroenterology 03/30/20 documented as of this encounter
--- OUTSIDE RECORDS SUMMARY | 2025-04-01 12:13 | XMS_ITS | Encounter Summary ---
Author Organization [facility] Address [address] [place] [address] Phone Care Team Providers Care Manager Motor Name Role Phone Joe Delaney MD Primary Care Provider [phone] Twan Davis MD Unavailable [phone] Wan Rodríguez Unavailable [phone] Rozina Petersen MD Unavailable Encounter Details Date Type Department Care Team Description 12/06/2024 Email from [facility] [address] [place] [phone] Jamison Castano MD [address] [place] [address] Social History Tobacco Use Types Packs/Day Years [...] faxing the referral at this time to [phone] documented in this encounter Plan of Treatment Upcoming Encounters Date Type Specialty Care Team Description 05/25/2025 Office Visit [place] [address] [place] [address] 08/03/2025 Office Visit Pain Medicine Patricia Sotelo PA [address] [place] [address] documented as of this encounter Visit Diagnoses Not on filedocumented in this encounter Care Teams Manager Motor Relationship Specialty Start Date End Date Joe Delaney MD [address] [place] [address] [id number] PCP - General Internal Medicine 11/17/18 [place] [address] [place] [address] Referring Physician Internal Medicine 11/17/18 Wan Rodírguez [facility] [place] [address] 06/02/19 Rozina Petersen MD Gastroenterology 03/30/20 documented as of this encounter
--- OUTSIDE RECORDS SUMMARY | 2025-04-01 12:13 | XMS_ITS | Encounter Summary ---
Author Organization [facility] Address [address] [place] [address] Phone Care Team Providers Care Swimming Teacher Name Role Phone Joe Mensah MD Primary Care Provider [phone] Twan Davis MD Unavailable [phone] Wan Rodríguez Unavailable [phone] Rozina Petersen MD Unavailable Encounter Details Date Type Department Care Team Description 06/07/2016 Conversion Neurology [address] [place] [phone] Ubaldo Valerio MD [address] [place], [place] [phone] Social History Tobacco Use Types Packs/Day Years [...] History: Past Surgical History: Tonsillectomy, childhood; . [place] teeth extracted;. Dental implants. . Prost bx. Family History reviewed - no changes required Additional comments:Mother age 88, kidney cancer, hysterectomy, breast cancer, cancerous colonpolyp. Father is , at age 83, [place] suspected. Had high PSA but not Ca. 1 brother is alive and well. 1 sister is alive and well. Social History (reviewed history from 05/08/2016 - no changes required): Marital Status: ; . Number of Children: 3. Place of : [place];. 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 Sleep History: 6-8 hrs;.Travel History: [place];. Tobacco use: never smoker. Alcohol use:yes. Alcohol use Frequency:social.Drug use: never. Caffeine use (drinks/day): 3. Exercise (times/week): 3. Seatbelt use (%): 100. 2 cats (for 2 years), a dog. . Medications: (prior to this visit) - verified by patient or patient compliance representative dealer LOSARTAN POTASSIUM 100 MG TABS (LOSARTAN POTASSIUM) [...] unchanged - Ubaldo Valerio MD ANXIETY (ICD-300.00) (ISQ37-Z06.9) AURAS (ICD-346.50) (FAM39-L03.109) Plan Medications (added/changed): OMEPRAZOLE 20 MG TBEC (OMEPRAZOLE) 1 tab po bid before breakfast and dinner PAXIL 10 MG TAB (PAROXETINE HCL) 1 tab po q am Medications (added/changed): OMEPRAZOLE 20 MG TBEC (OMEPRAZOLE) 1 tab po bid before breakfast and dinner PAXIL 10 MG TAB (PAROXETINE HCL) 1 tab po q am New Orders: SNOMED-CT: [id number] Patient Encounter for Meaningful Use [[id number]] Prescriptions: PAXIL 10 MG TAB (PAROXETINE HCL) 1 tab po q am #30[Tablet] x 8 Entered and Authorized by: Ubaldo Valerio MD Signed by: Ubaldo Valerio MD on 06/07/2016 Method used: Electronically to [facility] [phone]* (retail) [address] [place] [address] Ph: [phone] or [phone] Fax: [phone] RxID: Injections Medication List Reviewed Allergy List [...] past, for which he was seen at [facility] and had a workup, where he was [...] toes. Sensory: He acknowledged touch. Showed no vhynsu-oa-tjdg dysmetria. Ambulates easily. Gait and stance are [...] RE: DILIP SOLANO DOS: 06/07/2016 MILIND/htssa Job: [id number] cc: JOE MENSAH M.D. Please note, this documentation has been converted into the [employer] EHR from our [employer] EMR forinformational purposes only. This documentation must not be released or used for legal purposes as the note is missing the responsible provider???s signature. A copy of the legal medical record can be obtained or printed only from the [employer] EMR. documented in this encounter Plan of Treatment Upcoming Encounters Date Type Specialty Care Team Description 05/25/2025 Office Visit Internal Medicine Joe Mensah MD [address] [place], [place] [phone] 08/03/2025 Office Visit Pain Medicine Patricia Sotelo PA [address] [place], [place] [phone] documented as of this encounter Visit Diagnoses Not on filedocumented in this encounter Additional Health Concerns Infection Onset Date Last Indicated Resolved Time COVID-19 Rule Out Comment:04/29/2020 Negative (PAT) 02/20/2020 COVID19 NEGATIVE (PAT) 02/23/2020 02/23/2020 02/23/2020 10:42 AM EDT documented as of this encounter Care Teams Swimming Teacher Relationship Specialty Start Date End Date Joe Mensah MD [address] [place], [place] [phone] PCP - General Internal Medicine 11/17/18 Twan Davis MD [address] [place] [address] Referring Physician Internal Medicine 11/17/18 Wan Rodríguez [facility] [place] [address] 06/02/19 Rozina Petersen MD Gastroenterology 03/30/20 documented as of this encounter
--- OUTSIDE RECORDS SUMMARY | 2025-04-01 12:13 | XMS_ITS | Encounter Summary ---
Author Organization [facility] Address [address] [place] [address] Phone Care Team Providers Care Overnight Caregiver Name Role Phone Joe Delaney MD Primary Care Provider [phone] Twan Davis MD Unavailable [phone] Wan Rodríguez Unavailable [phone] Rozina Petersen MD Unavailable Encounter Details Date Type Department Care Team Description 06/19/2016 Conversion Internal Medicine [address] [place] [phone] Joe Delaney MD [address] [place] [address] Social History Tobacco Use Types Packs/Day [...] BPH. Past Surgical History: Tonsillectomy, childhood; . [place] teeth extracted;. Dental implants. . Prost bx. Social History: Marital Status: . . Number of Children: 3. Place of : [place];. 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 Sleep History: 6-8 hrs;.Travel History: [place];. Tobacco use: never smoker. Alcohol use:yes. Alcohol [...] visit) - verified by patient or patient renewals representative LOSARTAN POTASSIUM 100 MG TABS (LOSARTAN [...] (Moderate) PENICILLIN (Moderate) Vital Signs Entering Staff: Cecy Whitten MA June 19, 2016 3:16 PM [...] unchanged - Joe Delaney MD HEMORRHOIDS (ICD-455.6) (ARV04-Y69.9) KEY'S ESOPHAGUS (ICD-530.85) (FHA56-H29.70) THYROID NODULE (ICD-241.0) (GPF38-M36.1) Plan Medications (added/changed): DILTIAZEM HCL 30 MG [...] pain. Avoid Aleve, Advil. New Orders: SNOMED-CT: [id number] Patient Encounter for Meaningful Use [[id number]] Thyroid Ultrasound [USTHYRD] Prescriptions: ANUSOL-HC 2.5 % CREA (HYDROCORTISONE) apply litely to hemorrhoids after warm sitz bath qd #1[Unspecified] x 1 Entered and Authorized by: Joe Delaney MD Signed by: Joe Delaney MD on 06/19/2016 Method used: Electronically to [facility] [phone]* (retail) [address] [place] [address] Ph: [phone] or [phone] Fax: [phone] RxID: [id number] Injections Medication List Reviewed Schedule US for 06/26/16 at 3:30pm order given to patient end of visit summary handed to patient. Cecy Whitten MA June 19, 2016 3:51 PM ] Please note, this documentation has been converted into the [employer] EHR from our [employer] EMR forinformational purposes only. This documentation must not be released or used for legal purposes as the note is missing the responsible provider???s signature. A copy of the legal medical record can be obtained or printed only from the [employer] EMR. documented in this encounter Plan of Treatment Upcoming Encounters Date Type Specialty Care Team Description 05/25/2025 Office Visit Internal Medicine Joe Delaney MD [address] [place] [address] 08/03/2025 Office Visit Pain Medicine Patricia Sotelo PA [address] [place] [address] documented as of this encounter Visit Diagnoses Not on filedocumented in this encounter Additional Health Concerns Infection Onset Date Last Indicated Resolved Time COVID-19 Rule Out Comment:04/29/2020 Negative (PAT) 02/20/2020 COVID19 NEGATIVE (PAT) 02/23/2020 02/23/2020 02/23/2020 10:42 AM EDT documented as of this encounter Care Teams Overnight Caregiver Relationship Specialty Start Date End Date Joe Delaney MD [address] [place], [place] [phone] PCP - General Internal Medicine 11/17/18 [place] [address] [place] [address] Referring Physician Internal Medicine 11/17/18 Wan Rodríguez [facility] [place] [address] 06/02/19 Rozina Petersen MD Gastroenterology 03/30/20 documented as of this encounter
--- OUTSIDE RECORDS SUMMARY | 2025-04-01 12:13 | XMS_ITS | Encounter Summary ---
Author Organization [facility] Address [address] [place] [address] Phone Care Team Providers Care Cost Accounting Manager Name Role Phone Joe Mensah MD Primary Care Provider [phone] Twan Davis MD Unavailable [phone] Wan Rodríguez Unavailable [phone] Rozina Petersen MD Unavailable Encounter Details Date Type Department Care Team Description 02/03/2016 Conversion Private Practice - Procedural [address] [place] [phone] Geronimo Salguero MD [address] [place] [address] Social History Tobacco Use Types Packs/Day Years Used Date Smoking Tobacco: Never Assessed Sex Assigned at Date Recorded Male 03/28/2020 2:09 AM E DT Job Start Date Occupation Industry Not on file Not on file Not on file documented as of this encounter Progress Notes * Geronimo eBnnett MD - 02/03/2016 11:31 AM EDT History of Present Illness Chief Complaint: follow up NST HISTORY OF PRESENT ILLNESS: Dilip is here for followup of stress test. Patient had shortness of breath, chest tightness, and burning sensation of a lump in his throat mostly after eating and he goes outside and this helps. RE: DILIP SOLANO DOS: 02/03/2016 PK/htsbv Job: [id number] Ejection Fraction: 60-65 (11/11/2015) Total Cholesterol: 158 (05/09/2015) LDL: 98 HDL: 36 Triglyceride: 120 Past Medical History(reviewed history from 01/05/2016- no changes required): Htn. Elev PSA. . Back Pain. A-fib. . Gerd. Allergic rhinitis. BPH. Past Surgical History: Tonsillectomy, childhood; . [place] teeth extracted;. Dental implants. . Prost bx. Family History reviewed - no changes required Additional comments:Mother age 88, kidney cancer, hysterectomy, breast cancer, cancerous colonpolyp. Father is , at age 83, [place] suspected. Had high PSA but not Ca. 1 brother is alive and well. 1 sister is alive and well. Social History(reviewed history from 01/06/2016 - no changes required): Marital Status: ; . Number of Children: 3;. Place of : [place];. 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 Sleep History: 6-8 hrs;. Travel History: [place];. Tobacco use: never smoker. Alcohol use:yes. Alcohol [...] enlarged lymph nodes. Previous Problems: TIA (ICD-435.9) (BHC99-F50.9) ATRIAL FIBRILLATION, PAROXYSMAL (ICD-427.31) (DOA91-K17.0) CHEST DISCOMFORT (ICD-786.59) (KTW68-D62.89) DYSPNEA (ICD-786.09) (RIF33-X61.00) CATARACT (ICD-366.9) (BRJ13-Q73.9) PREOPERATIVE EXAMINATION NEC (ICD-V72.83) (JEE15-R29.818) ATRIAL FIBRILLATION (ICD-427.31) (BCI09-D63.0) LUMBAGO (ICD-724.2) (SBW60-Z43.5) HX OF BEE STING ALLERGY (ICD-V15.06) (MAD69-Y28.030) ESSENTIAL HYPERTENSION (ICD-401.9) (YQE45-Z07) OSTEOARTHRITIS, KNEE, RIGHT (ICD-715.96) (TYG52-J80.9) INGROWING NAIL (ICD-703.0) (FWY44-H43.0) KNEE PAIN, RIGHT (ICD-719.46) (UMN40-D05.561) ? of ADENOCARCINOMA, PROSTATE (ICD-185) (YWK94-B71) Sx of DEGENERATIVE JOINT DISEASE, KNEE (ICD-715.96) (VYW48-G23.9) BENIGN PROSTATIC HYPERPLASIA (ICD-600.00) (DPJ43-E96.0) PSA, INCREASED (ICD-790.93) (MOA76-Q03.2) SPRAIN/STRAIN NOS(ICD-848.9) (ZAU01-O21.8) SCREENING FOR UNSPECIFIED CONDITION (ICD-V82.9) (DVJ75-K68.9) SCREENING FOR LIPOID DISORDERS (ICD-V77.91) (NFZ89-O90.220) ALLERGIC RHINITIS CAUSE UNSPECIFIED (ICD-477.9) POSTNASAL DRIP (ICD-784.91) (YUJ24-S86.82) GERD (ICD-530.81) (FQN27-E16.9) ALLERGIES: PCN (Moderate) AMLODIPINE BESYLATE (AMLODIPINE BESYLATE) (Moderate) PENICILLIN (Moderate) Previous Medications: - verified by patient or patient wholesale representative LOSARTAN POTASSIUM 100 MG TABS (LOSARTAN POTASSIUM) one po qd XARELTO 20 MG TABS (RIVAROXABAN) one po qd METOPROLOL SUCCINATE ER 25 MG [id number] (METOPROLOL SUCCINATE) 1 by mouth twice a [...] po qd METOPROLOL SUCCINATE ER 25 MG [id number] (METOPROLOL SUCCINATE) 1 by mouth every day New Orders: SNOMED-CT: [id number] Patient Encounter for Meaningful Use [[id number]] IMPRESSION AND PLAN: 1. Chest pain. I [...] RE: DILIP SOLANO DOS: 02/03/2016 PK/htsbv Job: [id number] cc: JOE MENSAH M.D. Prescriptions: METOPROLOL SUCCINATE ER 25 MG [id number] (METOPROLOL SUCCINATE) 1 by mouth every day #30[Tablet] x 6 Entered by: Merle Damico LPN Authorized by: Geronmio Salguero MD Signed by: Merle Damico LPN on 02/03/2016 Method used: Electronically to [facility] [phone]* (retail) [address] [place] [address] Ph: [phone] or [phone] Fax: [phone] RxID: [id number] Please note, this documentation has been converted into the [employer] EHR from our [employer] EMR forinformational purposes only. This documentation must not be released or used for legal purposes as the note is missing the responsible provider?s signature. A copy of the legal medical record can be obtained or printed only from the [employer] EMR. documented in this encounter Plan of Treatment Upcoming Encounters Date Type Specialty Care Team Description 05/25/2025 Office Visit Internal Medicine Joe Mensah MD [address] [place] [address] 08/03/2025 Office Visit [place] [address] [place] [address] documented as of this encounter Visit Diagnoses Not on filedocumented in this encounter Additional Health Concerns Infection Onset Date Last Indicated Resolved Time COVID-19 Rule Out Comment:04/29/2020 Negative (PAT) 02/20/2020 COVID19 NEGATIVE (PAT) 02/23/2020 02/23/2020 02/23/2020 10:42 AM EDT documented as of this encounter Care Teams Cost Accounting Manager Relationship Specialty Start Date End Date Joe Mensah MD [address] [place] [address] PCP - General Internal Medicine 11/17/18 Twan Davis MD [address] [place] [address] Referring Physician Internal Medicine 11/17/18 Wan Rod[facility]guez [facility] [place] [address] 06/02/19 Rozina Petersen MD Gastroenterology 03/30/20 documented as of this encounter
--- OUTSIDE RECORDS SUMMARY | 2025-04-01 12:13 | XMS_ITS | Clinical Summary ---
Author Organization [facility] Address [address] [place] [address] Phone Care Team Providers Care Natural Gas Technician Name Role Phone Joe Delaney MD Primary Care Provider [phone] Twan Davis MD Unavailable [phone] Wan Rodríguez Unavailable [phone] Rozina Petersen MD Unavailable Allergies Active [...] a day 0 Active Xarelto 20 MG TABSIndications:Parox ysmal atrial fibrillation Take 1 tablet (20 mg total) by mouth daily 90 tablet 1 11/24/2021 Active cyclobenzaprine (FLEXERIL) 5 MG tablet Take 1 tablet (5 mg total) by mouth nightly as needed for muscle spasms 30 tablet 1 09/01/2024 Active meclizine (ANTIVERT) 12.5 MG tabletIndications:Omar ign paroxysmal positional vertigo, unspecified laterality Take 1 tablet (12.5 mg total) by mouth 3 (three) times a day as needed for dizziness 30 tablet 3 09/22/2024 Active flecainide (TAMBOCOR) 50 MG tablet 0 09/03/2024 Active losartan (COZAAR) 50 MG tabletIndications:Ess ential hypertension,Paroxysm al atrial fibrillation TAKE 1 TABLET(50 MG) BY MOUTH DAILY 90 tablet 1 12/14/2024 Active Active Problems Problem Noted Date Arthritis of [...] Encounters Date Type Specialty Care Team Description 02/03/2025 Office Visit Pain Medicine Patricia Sotelo PA Myofascial pain syndrome (Primary Dx); Pain of right forearm 02/03/2025 Travel 01/31/2025 Email from [facility] Pain Medicine Patricia Sotelo PA 01/31/2025 Email from [facility] Pain Patricia Norris PA 01/22/2025 Office Visit Internal Medicine Joe Delaney MD Essential hypertension (Primary Dx); GERD without esophagitis; Paroxysmal atrial fibrillation; Hypercalcemia; Nail deformity; Arthralgia of both hands 01/22/2025 Telephone Internal Medicine Joe Delaney MD 01/22/2025 Travel 01/20/2025 Email from [facility] Internal Medicine Joe Delaney MD 01/13/2025 Orders Only Internal Medicine Joe Delaney MD History of hyperlipidemia; Abnormal laboratory test result; Essential hypertension; GERD without esophagitis from Last 3 Months Immunizations Name Administration Dates Next Due Covid-19 (Pfizer) Dilution Required (Purple Cap) 10/15/2020,09/24/2020 Influenza Quad (Flublok) 0.5mL >18 Yrs Pneumococcal PCV13 (Prevnar 13) 05/20/2018 Pneumococcal PPSV23 [...] file Not on file Not on file Last Filed Vital Signs Vital Sign Reading Time Taken Comments Blood Pressure 120/80 01/22/2025 12:24 PM EDT Pulse 68 01/22/2025 12:24 PM EDT Temperature 36.1 C (97 F) 12/07/2024 8:41 AM EDT Respiratory Rate 18 12/07/2024 8:41 AM EDT Oxygen Saturation 96% 01/22/2025 12: 10 PM EDT Inhaled Oxygen Concentration - - Weight 102.2 kg (225 lb 6.4 oz) 025 12:10 PM EDT Height 188 cm (6' 2 ) 12/07/2024 8:41 AM EDT Body Mass Index 28.94 12/07/2024 8:41 AM EDT Plan of Treatment Upcoming Encounters Date Type Specialty Care Team Description 05/25/2025 Office Visit Internal Medicine Joe Delaney MD [address] [place] [address] 08/03/2025 Office Visit Pain Medicine Patricia Sotelo PA [address] [place], [place] [phone] Health Maintenance Due Date Last Done Comments Colon Cancer Screening Fecal DNA 1952 Colon Cancer Screening Fecal Occult Blood Test 1950 Sigmoidoscopy Every 5 Years 1952 RSV Adult > 60+ Yrs (1 - 1-dose 60+ series) 2012 COVID-19 Vaccine ( season) 2024 10/15/2020, 09/24/2020 Influenza Vaccine 03/05/2025 04/27/2021, (Declined), 06/02/2019 (Declined) Annual Medicare Well Visit 08/10/202508/10, 08/10/2024, 11/24/2021, Additional history exists Risk To Fall Survey Annual (Elderly Patients 65+) 08/10/2025 08/10/2024, 11/24/2021 Lipid Panel 01/13/2026 01/13/2025, 11/2022, 11/15/2021, Additional history exists DTaP / TDap / Td (2 - Td or Tdap) 02/19/2027 02/19/2017 Colon Cancer Screening Colonoscopy 02/11/2033 02/11/2023, 11/11/2012 Colorectal Cancer Screening 02/11/2033 Pneumococcal Vaccine Completed 06/02/2019, 05/20/20 Hepatitis C Testing Offered (born [id number]) Completed 11/17/2020 (Declined) PHQ Depression Screening Completed 025, 08/10/2024, 11/24/2021, Additional history exists RSV Ped < 20 months Aged Out No longe r eligible based on patient's age to complete this topic Zoster Recombinant Vaccine (RZV) (Shingrix) Discontinued Procedures Procedure Name Priority Date/Time Associated Diagnosis Comments CBC Routine 01/13/2025 8:57 AM EDT GERD without esophagitis COMPREHENSIVE METABOLIC PANEL Routine 01/13/2025 8:57 AM EDT Essential hypertension LACTATE DEHYDROGENASE Routine 01/13/2025 8:57 AM EDT Abnormal laboratory test result LIPID PANEL Routine 01/13/2025 8:57 AM EDT History of hyperlipidemia from Last 3 Months Results * CBC (01/13/2025 8:57 AM EDT) [...] MD LAB BLOOD ORDERABLES FREQUENCY [facility] [address] [facility] [address] [facility] [address] [place], [place] [phone] * (ABNORMAL) Lactate dehydrogenase (01/13/2025 8:57 AM EDT) LD 123(L) 140 - 271 IU/L [facility] Blood 01/13/2025 8:57 AM EDT 01/13/2025 9:13 AM EDT Joe Delaney MD LAB BLOOD ORDERABLES Performing Organization Address [facility] Co de Phone Number [facility] [address] [place], [place] [phone] * Lipid panel (01/13/2025 8:57 AM EDT) Cholesterol 174 136 - 200 mg/dl [facility] Comment: Cholesterol Risk Levels Recommended under 200mg/dl Borderline 200-239mg/dl High Risk above 240mg/dl Triglycerides 99 48 - 200 mg/dl [facility] HDL 48 35 - 92 mg/dl [facility] LDL Cholesterol 107 0 - 140 mg/dl [facility] Total Nch-HHL-Jdsr (LDL+VLDL) 126.5 30.0 - 130.0 mg/dl [facility] Chol/HDL Ratio 3.7 3.4 - 24.0 [facility] Blood 01/13/2025 8:57 AM EDT 01/13/2025 9:13 AM EDT Joe Delaney MD LAB BLOOD ORDERABLES Performing Organization Address [facility] Co de Phone Number [facility] [address] [place], [place] [phone] * (ABNORMAL) Comprehensive metabolic panel (01/13/2025 8:57 AM EDT) GLUCOSE 85 70 - 105 [...] [facility] Comment:If patient is Radha n [place] multiply result by 1.212 Alb/Glob ratio 1.6 1.2 - 1.8 [facility] Globulin 2.7 1.6 - 3.9 g/dl [facility] Blood 01/13/2025 8:57 AM EDT 01/13/2025 9:13 AM EDT Joe Delaney MD LAB BLOOD ORDERABLES [facility] [address] [facility] [address] [place], [place] [phone] from Last 3 Months Advance Directives For more information, please contact: [phone] (24 hours a day, Saturday-Saturday) Latest Code Status on File Code Status Date Activated Date Inactivated Comments Full Code 02/25/2020 11:59 AM 05/04/2020 8:47 AM BLS/ ACLS protocol per AHA Standards Care Teams Natural Gas Technician Relationship Specialty Start Date End Date Joe Delaney MD [address] [place] [address] PCP - General Internal Medicine 11/17/18 [place] [address] [place] [address] Referring Physician Internal Medicine 11/17/18 Wan Rodríguez [facility] [place] [address] 06/02/19 Rozina Petersen MD Gastroenterology 03/30/20
--- OUTSIDE RECORDS SUMMARY | 2025-04-01 12:13 | XMS_ITS | Encounter Summary ---
Author Organization [facility] Address [address] [place] [address] Phone Care Team Providers Care Bakery Demonstrator Name Role Phone Joe Delaney MD Primary Care Provider [phone] Twan Davis MD Unavailable [phone] Wan Rodríguez Unavailable [phone] Rozina Petersen MD Unavailable Encounter Details Date Type Department Care Team Description 12/27/2015 Conversion Private Practice - Procedural [address] [place] [phone] Geronimo Salguero MD [address] [place] [address] Social History Tobacco Use Types Packs/Day Years [...] MD; Method used: Electronically to [facility] [phone]*, [address] [place] [address], Ph: [phone] or [phone], Fax: [phone] Prescriptions: TOPROL XL TBCR 50 MG (METOPROLOL SUCCINATE) 1 by mouth twice a day #60[Unspecified] x 6 Entered by: Merle Damico LPN Authorized by: Geronimo Salguero MD Signed by: Merle Damico LPN on 12/27/2015 Method used: [facility] [phone]* (retail) [address] [place] [address] Ph: [phone] or [phone] Fax: [phone] RxID: [id number] Left message for patient to call the [...] this documentation has been converted into the [employer] EHR from our [employer] EMR forinformational purposes only. This documentation must not be released or used for legal purposes as the note is missing the responsible provider???s signature. A copy of the legal medical record can be obtained or printed only from the [employer] EMR. documented in this encounter Plan of Treatment Upcoming Encounters Date Type Specialty Care Team Description 05/25/2025 Office Visit Internal Medicine Joe Delaney MD [address] [place] [address] 08/03/2025 Office Visit Pain Medicine Patricia Sotelo PA [address] [place] [address] documented as of this encounter Visit Diagnoses Not on filedocumented in this encounter Additional Health Concerns Infection Onset Date Last Indicated Resolved Time COVID-19 Rule Out Comment:04/29/2020 Negative (PAT) 02/20/2020 COVID19 NEGATIVE (PAT) 02/23/2020 02/23/2020 02/23/2020 10:42 AM EDT documented as of this encounter Care Teams Bakery Demonstrator Relationship Specialty Start Date End Date Joe Delaney MD [address] [place] [address] PCP - General Internal Medicine 11/17/18 [place] [address] [place] [address] Referring Physician Internal Medicine 11/17/18 Wan Rodríguez [facility] [place] [address] 06/02/19 Rozina Petersen MD Gastroenterology 03/30/20 documented as of this encounter
--- OUTSIDE RECORDS SUMMARY | 2025-04-01 12:13 | XMS_ITS | Encounter Summary ---
Author Organization [facility] Address [address] [place] [address] Phone Care Team Providers Care Drop Forger Helper Name Role Phone Joe Delaney MD Primary Care Provider [phone] Twan Davis MD Unavailable [phone] Wan Rodríguez Unavailable [phone] Rozina Petersen MD Unavailable Encounter Details Date Type Department Care Team Description 01/31/2025 Email from [employer] [facility] [address] [place] [phone] Patricia Sotelo PA [address] [place] [address] Social History Tobacco Use Types Packs/Day [...] [place] [address] [place] [address] 08/03/2025 Office Visit Pain Medicine Patricia Sotelo PA [address] [place] [address] documented as of this encounter Visit Diagnoses Not on filedocumented in this encounter Care Teams Drop Forger Helper Relationship Specialty Start Date End Date Joe Delaney MD [address] [place] [address] PCP - General Internal Medicine 11/17/18 Twan Davis MD [address] [place] [address] Referring Physician Internal Medicine 11/17/18 Wan Rodríguez [facility] [place] [address] 06/02/19 Rozina Petersen MD Gastroenterology 03/30/20 documented as of this encounter
--- OUTSIDE RECORDS SUMMARY | 2025-04-01 12:13 | XMS_ITS | Clinical Summary ---
Author Organization [facility] Address [address] [place] [address] Care Team Providers Care Pattern Chain Maker Supervisor Name Role Phone Joe Delaney MD Primary Care Provider [phone] Surgical History Surgery Date Site/Laterality Comments TONSILLECTOMY PROCEDURE: TONSILLECTOMY; COMMENT: childhood HEMORRHOID SURGERY PROCEDURE: HEMORRHOID SURGERY [facility] 02/25/2020 PROCEDURE: ENDO REFLUX TESTING; COMMENT: Procedure: [...] Screen 07/17/2022 Colorectal Cancer Screening: Colonoscopy 07/17/2022 Falls Risk Assessment 07/17/2022 Hepatitis C Screening 07/17/2022 Social Influencers of Health Screening 07/17/2022 Hypertension/CHF/CAD Annual BMP Blood Test 11/15/2022 11/15/2021, 08/17/2020, 10/06/2019, Additional history exists COVID-19 Vaccine (3 - season) 2024 10/15/2020, 09/24/2020 Depression Screening 08/05/2024 Influenza Vaccine (#1) 2025 04/27/2021 Cholesterol Screening (Lipid Panel) 11/15/2026 [...] age to complete this topic Care Teams Pattern Chain Maker Supervisor Relationship Specialty Start Date End Date Joe Delaney MD [address] [place] [address] PCP - General Internal Medicine 11/17/18
--- OUTSIDE RECORDS SUMMARY | 2025-04-01 12:13 | XMS_ITS | Encounter Summary ---
Author Organization [facility] Address [address] [place] [address] Phone Care Team Providers Care Back Tender Pulp Drier Name Role Phone Joe Delaney MD Primary Care Provider [phone] Twan Davis MD Unavailable [phone] Wan Rodríguez Unavailable [phone] Rozina Petersen MD Unavailable Encounter Details Date Type Department Care Team Description 01/05/2016 Conversion Internal Medicine [address] [place] [phone] Joe Delaney MD [address] [place], [place] [phone] Social History Tobacco Use Types Packs/Day Years [...] Complaint: Hosp Comments: Hosp 1 nite at [facility] and d/c on December 27. 2 days [...] BPH. Past Surgical History: Tonsillectomy, childhood; . [place] teeth extracted;. Dental implants. . Prost bx. Medications: (prior to this visit) - verified by patient or patient representative phlebotomy services LOSARTAN POTASSIUM 100 MG TABS (LOSARTAN POTASSIUM) one po qd XARELTO 20 MG TABS (RIVAROXABAN) one po qd METOPROLOL SUCCINATE ER 25 MG [id number] (METOPROLOL SUCCINATE) 1 by mouth twice a [...] Joe Delaney MD - Signed TIA (ICD-435.9) (NOG49-V94.9) Plan Medications (added/changed): PANTOPRAZOLE SODIUM 40 MG TBEC (PANTOPRAZOLE SODIUM) one po qd Medications (added/changed): PANTOPRAZOLE SODIUM 40 MG TBEC (PANTOPRAZOLE SODIUM) one po qd Comments: Refer to Dr Valerio (already aware of case). Continue Cardiology f/u Pantoprazole trial. Continue meds. Weight Management: not needed New Orders: SNOMED-CT: [id number] Patient Encounter for Meaningful Use [[id number]] Disposition: return to clinic in 3 months Prescriptions: PANTOPRAZOLE SODIUM 40 MG TBEC (PANTOPRAZOLE SODIUM) one po qd #30[Tablet] x 2 Entered and Authorized by: Joe Delaney MD Signed by: Joe Delaney MD on 01/05/2016 Method used: Electronically to [facility] [phone]* (retail) [address] [place] [address] Ph: [phone] or [phone] Fax: [phone] RxID: [id number] Injections next appt 04/13/16 w/ DCG appt card handed to patient. I refer patient to Dr. Valerio appt 01/25/16 at 4:00pm appt card handed to patient. end of visit summary handed to patient.Cecy Whitten MA 2015 10:27 AM Please note, this documentation has been converted into the [employer] EHR from our [employer] EMR forinformational purposes only. This documentation must not be released or used for legal purposes as the note is missing the responsible provider???s signature. A copy of the legal medical record can be obtained or printed only from the [employer] EMR. documented in this encounter Plan of Treatment Upcoming Encounters Date Type Specialty Care Team Description 05/25/2025 Office Visit Internal Medicine Joe Delaney MD [address] [place], [place] [id number] 08/03/2025 Office Visit Pain Medicine Patricia Sotelo PA [address] [place] [address] documented as of this encounter Visit Diagnoses Not on filedocumented in this encounter Additional Health Concerns Infection Onset Date Last Indicated Resolved Time COVID-19 Rule Out Comment:04/29/2020 Negative (PAT) 02/20/2020 COVID19 NEGATIVE (PAT) 02/23/2020 02/23/2020 02/23/2020 10:42 AM EDT documented as of this encounter Care Teams Back Tender Pulp Drier Relationship Specialty Start Date End Date Joe Delaney MD [address] [place], [place] [id number] PCP - General Internal Medicine 11/17/18 Twan Davis MD [address] [place] [address] Referring Physician Internal Medicine 11/17/18 Wan Rodríguezwell Vlad Katz [facility] [place] [address] 06/02/19 Rozina Petersen MD Gastroenterology 03/30/20 documented as of this encounter
--- OUTSIDE RECORDS SUMMARY | 2025-04-01 12:13 | XMS_ITS | Encounter Summary ---
Author Organization [facility] Address [address] [place] [address] Phone Care Team Providers Care Site Reliability Engineer Name Role Phone Joe Delaney MD Primary Care Provider [phone] Twan Davis MD Unavailable [phone] Wan Rodríguez Unavailable [phone] Rozina Petersen MD Unavailable Encounter Details Date Type Department Care Team Description 07/03/2016 Conversion Internal Medicine [address] [place] [phone] Joe Delaney MD [address] [place] [address] Social History Tobacco Use Types Packs/Day Years Used Date Smoking Tobacco: Never Assessed Sex Assigned at Date Recorded Male 03/28/2020 2:09 AM E DT Job Start Date Occupation Industry Not on file Not on file Not on file documented as of this encounter Miscellaneous Notes * Scanned Document - Joe Delaney MD - 07/03/2016 3:32 AM EST OPERATIVE NOTE [facility] [address], [facility] [address] OPERATIVE REPORT NAME: DILIP SOLANO ROOM: 0181-1 AGE: 66 ACCT: [id number] : 1950 MR: [id number] ATTN PHYS: TUYET GUDINO MD PT TYPE: [...] So, the hemorrhoid was grasped with the Ukrainian forceps lifted away from the anal rectal wall and then a Jennifer clamp placed across the base of it. A Harmonic scalpel was then used to completely remove this just 1 large thrombosed hemorrhoid. This was passed off the field as specimen. Hemostasis of the wound was assured especially the patient being on Xarelto. The wound was then closed with interrupted [id number] sutures of 2-0 Vicryl. The area was [...] the procedure well. Electronically Signed by TUYET UGDINO MD07/06/2016 04:41 P TUYET GUDINO MD * cc: MD TUYET ROBERTSON MD [phone] : mitchell P P JOB: [id number] XD: [id number] EXT DOC ID: [id number] REVIEWED ONLY Please note, this documentation has been converted into the [employer] EHR from our [employer] EMR forinformational purposes only. This documentation must not be released or used for legal purposes as the note is missing the responsible provider???s signature. A copy of the legal medical record can be obtained or printed only from the [employer] EMR. documented in this encounter Plan of Treatment Upcoming Encounters Date Type Specialty Care Team Description 05/25/2025 Office Visit Internal Medicine Joe Delaney MD [address] [place] [address] 08/03/2025 Office Visit Pain Medicine Patricia Sotelo PA [address] [place] [address] documented as of this encounter Visit Diagnoses Not on filedocumented in this encounter Additional Health Concerns Infection Onset Date Last Indicated Resolved Time COVID-19 Rule Out Comment:04/29/2020 Negative (PAT) 02/20/2020 COVID19 NEGATIVE (PAT) 02/23/2020 02/23/2020 02/23/2020 10:42 AM EDT documented as of this encounter Care Teams Site Reliability Engineer Relationship Specialty Start Date End Date Joe Delaney MD [address] [place], [place] [phone] PCP - General Internal Medicine 11/17/18 [place] [address] [place] [address] Referring Physician Internal Medicine 11/17/18 Wan Rodríguez [facility] [place] [address] 06/02/19 Rozina Petersen MD Gastroenterology 03/30/20 documented as of this encounter
--- OUTSIDE RECORDS SUMMARY | 2025-04-01 12:13 | XMS_ITS | Encounter Summary ---
Author Organization [facility] Address [address] [place] [address] Phone Care Team Providers Care Evp Name Role Phone Joe Delaney MD Primary Care Provider [phone] Twan Davis MD Unavailable [phone] Wan Rodríguez Unavailable [phone] Rozina Petersen MD Unavailable Encounter Details Date Type Department Care Team Description 05/08/2016 Conversion Internal Medicine [address] [place] [phone] Joe Delaney MD [address] [place], [place] [phone] Social History Tobacco Use Types Packs/Day Years [...] otc AND Rx Famotidine. States went to [facility], had Endo 8-29 there. Patchy candidiasis was found. [place] did NOT send reports but pt brought in his own. Also saw a Forge Operator in [place], Dr Lucio Osorio, who said he was on right meds. Cardiac report rec'd and noted. Past Medical History: Htn. Elev PSA. . Back Pain. A-fib. . Gerd. Allergic rhinitis. BPH. Past Surgical History: Tonsillectomy, childhood; . [place] teeth extracted;. Dental implants. . Prost bx. Social History: Marital Status: ; . Number of Children: 3. Place of : [place];. 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 Sleep History: 6-8 hrs;.Travel History: [place];. Tobacco use: never smoker. Alcohol use:yes. Alcohol [...] visit) - verified by patient or patient sales representative supervisor LOSARTAN POTASSIUM 100 MG TABS (LOSARTAN POTASSIUM) one po qd XARELTO 20 MG TABS (RIVAROXABAN) one po qd METOPROLOL SUCCINATE ER 25 MG [id number] (METOPROLOL SUCCINATE) 1 by mouth every day [...] Has appt with Urologist, Dr Zimmerman, in [facility]. Requests PSA test. Plan Medications (added/changed): DILTIAZEM [...] counseling at this time New Orders: SNOMED-CT: [id number] Patient Encounter for Meaningful Use [[id number]] Comprehensive Metabolic Profile [id number] [50788] CBC,manual diff if indicated [id number] [28783] PSA [5050] Disposition: return to clinic in 4 months cc: Dr Lucio gagnon Written instructions were given to the patient. See above. Joe Delaney MD May 08, 2016 1:13 PM Flu Vax: refused Injections Medication List Reviewed ] labs scheduled 05/10/16 [facility] bloodwork is non-fasting, lab slip handed to patient. Next office visit 09/05/16 @ 9 am [facility] dcg appt card handed to patient. End of visit instruction sheet handedto patient. Emili Curtis RACHEL May 08, 2016 11:15 AM Please note, this documentation has been converted into the [email or web address] EHR from our [employer] EMR forinformational purposes only. This documentation must not be released or used for legal purposes as the note is missing the responsible provider???s signature. A copy of the legal medical record can be obtained or printed only from the [employer] EMR. cc send to and Dr. gagnon Please note, this documentation has been converted into the [email or web address] EHR from our [employer] EMR forinformational purposes only. This documentation must not be released or used for legal purposes as the note is missing the responsible provider???s signature. A copy of the legal medical record can be obtained or printed only from the [employer] EMR. documented in this encounter Plan of Treatment Upcoming Encounters Date Type Specialty Care Team Description 05/25/2025 Office Visit Internal Medicine Joe Delaney MD [address] [place] [address] 08/03/2025 Office [place] [address] [place] [phone] documented as of this encounter Visit Diagnoses Not on filedocumented in this encounter Additional Health Concerns Infection Onset Date Last Indicated Resolved Time COVID-19 Rule Out Comment:04/29/2020 Negative (PAT) 02/20/2020 COVID19 NEGATIVE (PAT) 02/23/2020 02/23/2020 02/23/2020 10:42 AM EDT documented as of this encounter Care Teams Evp Relationship Specialty Start Date End Date Joe Delaney MD [facility] [place] [address] PCP - General Internal Medicine 11/17/18 Twan Davis MD [address] [place] [address] Referring Physician Internal Medicine 11/17/18 Wan Rodríguez [facility] [place] [address] 06/02/19 Rozina Petersen MD Gastroenterology 03/30/20 documented as of this encounter
--- OUTSIDE RECORDS SUMMARY | 2025-04-01 12:14 | XMS_ITS | Encounter Summary ---
Author Organization [facility] Address [address] [place] [address] Phone Care Team Providers Care Proposal Analyst Name Role Phone Joe Delaney MD Primary Care Provider [phone] Twan Davis MD Unavailable [phone] Wan Rodríguez Unavailable Rozina Petersen MD Unavailable Encounter Details Date Type Department Care Team Description 11/20/2016 Conversion Endocrinology [address] [place] [address] Jayjay Allred MD [address] [place], [place] [phone] Social History Tobacco Use Types Packs/Day Years Used Date Smoking Tobacco: Never Assessed Sex Assigned at Date Recorded Male 03/28/2020 2:09 AM E DT Job Start Date Occupation Industry Not on file Not on file Not on file documented as of this encounter Plan of Treatment Upcoming Encounters Date Type Specialty Care Team Description 05/25/2025 Office Visit Internal Medicine Joe Delaney MD [address] [place] [address] 08/03/2025 Office Visit Pain Medicine Patricia Sotelo PA [address] [place] [address] documented as of this encounter Procedures Procedure [...] AM EDT Testing performed at: [BN] [facility] [address], [address], , Kennel Hand: Carter Norton MD Jayjay Allred MD LAB BLOOD ORDERABLES [facility] * Thyroid peroxidase antibody (11/20/2016 8:32 AM EDT) Thyroid Peroxidase Ab 7 0 - 34 IU/mL [facility] 11/20/2016 8:32 AM EDT 11/20/2016 8:35 AM EDT Narrative [facility] - 11/21/2016 1:15 AM EDT Testing performed at: [RN] [facility] [place], [address] [place] [address], [place], [address], , Kennel Hand: Lynn Dukes MD Jayjay Allred MD LAB BLOOD ORDERABLES Performing Organization Address [facility]/State/ZIP Co de Phone Number [facility] * TSH (11/20/2016 8:32 AM EDT) TSH 1.84 0.50 - 6.00 uIU/mL [facility] 11/20/2016 8:32 AM EDT 11/20/2016 8:35 AM EDT Narrative [facility] - 11/20/2016 10:58 AM EDT Jayjay Allred MD LAB BLOOD ORDERABLES Performing Organization Address [facility] Co de Phone Number [facility] [address] [place], [place] [phone] * T3 (11/20/2016 8:32 AM EDT) T3, Total 1.4 0.7 - 1.7 ng/ml [facility] 11/20/2016 8:32 AM EDT 11/20/2016 8:35 AM EDT Narrative [facility] - 11/20/2016 10:58 AM EDT Jayjay Allred MD LAB BLOOD ORDERABLES Performing Organization Address [facility] Co de Phone Number [facility] [address] [place], [place] [phone] * T4, free (11/20/2016 8:32 AM EDT) Free T4 0.87 0.75 - 1.54 ng/dL [facility] 11/20/2016 8:32 AM EDT 11/20/2016 8:35 AM EDT Narrative [facility] - 11/20/2016 10:58 AM EDT Jayjay Allred MD LAB BLOOD ORDERABLES Performing Organization Address [facility] Co de Phone Number [address] [place], [place] [phone] documented in this encounter Visit Diagnoses Not on filedocumented in this encounter Additional Health Concerns Infection Onset Date Last Indicated Resolved Time COVID-19 Rule Out Comment:04/29/2020 Negative (PAT) 02/20/2020 COVID19 NEGATIVE (PAT) 02/23/2020 02/23/2020 02/23/2020 10:42 AM EDT documented as of this encounter Care Teams Proposal Analyst Relationship Specialty Start Date End Date Joe Delaney MD [address] [place], [place] [phone] PCP - General Internal Medicine 11/17/18 Twan Davis MD [address] [place] [address] Referring Physician Internal Medicine 11/17/18 Wan Rodríguez [facility] [place] [address] 06/02/19 Rozina Petersen MD Gastroenterology 03/30/20 documented as of this encounter
--- OUTSIDE RECORDS SUMMARY | 2025-04-01 12:14 | XMS_ITS | Encounter Summary ---
Author Organization [facility] Address [address] [place] [address] Phone Care Team Providers Care Fire Investigation Manager Name Role Phone Joe Delaney MD Primary Care Provider [phone] Twan Davis MD Unavailable [phone] Wan Rodríguez Unavailable [phone] Rozina Petersen MD Unavailable Encounter Details Date Type Department Care Team Description 01/07/2023 Email from [facility] Internal Medicine [address] [place] [phone] Joe Delaney MD [address] [place] [address] Social History Tobacco Use Types Packs/Day [...] Visit Internal Medicine Joe Delaney MD [address] [place] [address] 08/03/2025 Office Visit Pain Medicine Patricia Sotelo PA [address] [place], [place] [phone] documented as of this encounter Visit Diagnoses Not on filedocumented in this encounter Care Teams Fire Investigation Manager Relationship Specialty Start Date End Date Joe Delaney MD [address] [place] [address] PCP - General Internal Medicine 11/17/18 Twan Davis MD [address] [place] [address] Referring Physician Internal Medicine 11/17/18 Wan Rodríguez [facility] [place] [address] 06/02/19 Rozina Petersen MD Gastroenterology 03/30/20 documented as of this encounter
--- OUTSIDE RECORDS SUMMARY | 2025-04-01 12:14 | XMS_ITS | Encounter Summary ---
Author Organization [facility] Address [address] [place] [address] Phone Care Team Providers Care Hunting Sales Leader Name Role Phone Joe Delaney MD Primary Care Provider [phone] Twan Davis MD Unavailable [phone] Wan Rodríguez Unavailable [phone] Rozina Petersen MD Unavailable Encounter Details Date Type Department Care Team Description 01/25/2023 Email from [facility] Internal Medicine [address] [place] [phone] Joe Delaney MD [address] [place] [address] Social History Tobacco Use Types Packs/Day [...] Office Visit Internal Medicine Joe Delaney MD [address] [place] [address] 08/03/2025 Office Visit Pain Medicine Patricia Sotelo PA [address] [place], [place] [phone] documented as of this encounter Visit Diagnoses Not on filedocumented in this encounter Care Teams Hunting Sales Leader Relationship Specialty Start Date End Date Joe Delaney MD [address] [place] [address] PCP - General Internal Medicine 11/17/18 Twan Davis MD [address] [place] [address] Referring Physician Internal Medicine 11/17/18 Wan Rod[facility]guez [facility] [place] [address] 06/02/19 Rozina Petersen MD Gastroenterology 03/30/20 documented as of this encounter
--- OUTSIDE RECORDS SUMMARY | 2025-04-01 12:14 | XMS_ITS | Encounter Summary ---
Author Organization [facility] Address [address] [place] [address] Phone Care Team Providers Care Final Assembler Name Role Phone Joe Delaney MD Primary Care Provider Twan Davis MD Unavailable [phone] Wan Rodríguez Unavailable [phone] Rozina Petersen MD Unavailable Encounter Details Date Type Department Care Team Description 10/22/2016 [facility] Information Management - Release of Information [address] [place] [phone] Penny Yousif [address] [phone] Social History Tobacco Use Types Packs/Day Years [...] History of Present Illness Referral source: Joe Delanye MD History from: patient Reason for visit: [...] - no changes required): Tonsillectomy, childhood; . [place] teeth extracted;. Dental implants. . Prost bx. Family History reviewed - no changes required Additional comments:Mother age 88, kidney cancer, hysterectomy, breast cancer, cancerous colonpolyp. Father is , at age 83, [place] suspected. Had high PSA but not Ca. 1 brother is alive and well. 1 sister is alive and well. Social History (reviewed history from 09/20/2016 - no changes required): Marital Status: . . Number of Children: 3. Place of : [place]. 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 Sleep History: 6-8 hrs;. Travel History: [place];. Tobacco use: never smoker. Passive smoke exposure: no. Alcohol use:yes. Alcohol use Frequency:social. Drug use: never. HIV high risk behavior: no. Caffeine use (drinks/day): 3. Exercise (times/week): 3. Seatbelt use (%): 100. 2 cats (for 2 years), a dog. . Medications: (prior to this visit) - verified by patient or patient patient care representative LOSARTAN POTASSIUM 100 MG TABS (LOSARTAN [...] to temperature. Romberg's sign negative. -Coordination: normal [id number] Assessment Problems: Assessed ANXIETY as improved - Penny Yousif RPA-C - Signed Assessed AURAS as improved - Penny Yousif RPA-C - Signed SYMPTOM, MEMORY LOSS (ICD-780.93) (YUD13-X71.3) Comments: This is a 66-year-old man with [...] primary care provider now. New Orders: SNOMED-CT: [id number] Patient Encounter for Meaningful Use [[id number]] Methylmalonic Acid [827230] Disposition: return to clinic in 6 months Injections Medication List Reviewed Allergy List Reviewed Please note, this documentation has been converted into the [employer] EHR from our [employer] EMR forinformational purposes only. This documentation must not be released or used for legal purposes as the note is missing the responsible provider???s signature. A copy of the legal medical record can be obtained or printed only from the [employer] EMR. documented in this encounter Plan of Treatment Upcoming Encounters Date Type Specialty Care Team Description 05/25/2025 Office Visit Internal Medicine Joe Delaney MD [address] [place], [place] [phone] 08/03/2025 Office Visit Pain Medicine Patricia Sotelo PA [address] [place], [place] [phone] documented as of this encounter Visit Diagnoses Not on filedocumented in this encounter Additional Health Concerns Infection Onset Date Last Indicated Resolved Time COVID-19 Rule Out Comment:04/29/2020 Negative (PAT) 02/20/2020 COVID19 NEGATIVE (PAT) 02/23/2020 02/23/2020 02/23/2020 10:42 AM EDT documented as of this encounter Care Teams Final Assembler Relationship Specialty Start Date End Date Joe Delaney MD [address] [place] [address] PCP - General Internal Medicine 11/17/18 [place] [address] [place] [address] Referring Physician Internal Medicine 11/17/18 Wan Rodríguez [facility] Vlad Katz [facility] [place] [address] 06/02/19 Rozina Petersen MD Gastroenterology 03/30/20 documented as of this encounter
--- OUTSIDE RECORDS SUMMARY | 2025-04-01 12:14 | XMS_ITS | Encounter Summary ---
Author Organization [facility] Address [address] [place] [address] Phone Care Team Providers Care Construction Flagger Name Role Phone Joe Delaney MD Primary Care Provider [phone] Twan Davis MD Unavailable [phone] Wan Rodríguez Unavailable [phone] Rozina Petersen MD Unavailable Encounter Details Date Type Department Care Team Description 03/21/2022 Email from [facility] [address] [place] [phone] Jamison Castano MD [address] [place] [address] Social History Tobacco Use Types Packs/Day [...] Visit Internal Medicine Joe Delaney MD [address] [place] [address] 08/03/2025 Office Visit Pain Medicine Patricia Sotelo PA [address] [place] [address] documented as of this encounter Visit Diagnoses Not on filedocumented in this encounter Care Teams Construction Flagger Relationship Specialty Start Date End Date Joe Delaney MD [address] [place] [address] PCP - General Internal Medicine 11/17/18 Twan Davis MD [address] [place] [address] Referring Physician Internal Medicine 11/17/18 Wan Rodríguez [facility] [place] [address] 06/02/19 Rozina Petersen MD Gastroenterology 03/30/20 documented as of this encounter
--- OUTSIDE RECORDS SUMMARY | 2025-04-01 12:14 | XMS_ITS | Encounter Summary ---
Author Organization [facility] Address [address] [place] [address] Phone Care Team Providers Care Film Processing Shift Supervisor Name Role Phone Joe Delaney MD Primary Care Provider [phone] Twan Davis MD Unavailable [phone] Wan Rodríguez Unavailable [phone] Rozina Petersen MD Unavailable Encounter Details Date Type Department Care Team Description 04/13/2017 [facility] Endocrinology [address] [place] [phone] Jayjay Allred MD [address] [place] [address] Social History Tobacco Use Types Packs/Day Years [...] this documentation has been converted into the [employer] EHR from our [employer] EMR forinformational purposes only. This documentation must not be released or used for legal purposes as the note is missing the responsible provider???s signature. A copy of the legal medical record can be obtained or printed only from the [facility] EMR. documented in this encounter Plan of Treatment Upcoming Encounters Date Type Specialty Care Team Description 05/25/2025 Office Visit Internal Medicine Joe Delaney MD [address] [place], [place] [phone] 08/03/2025 Office Visit Pain Medicine Patricia Sotelo PA [address] [place], [place] 2071013 documented as of this encounter Visit Diagnoses Not on filedocumented in this encounter Additional Health Concerns Infection Onset Date Last Indicated Resolved Time COVID-19 Rule Out Comment:04/29/2020 Negative (PAT) 02/20/2020 COVID19 NEGATIVE (PAT) 02/23/2020 02/23/2020 02/23/2020 10:42 AM EDT documented as of this encounter Care Teams Film Processing Shift Supervisor Relationship Specialty Start Date End Date Joe Delaney MD [address] [place], [place] 1915013 PCP - General Internal Medicine 11/17/18 [place] [address] [place] [address] Referring Physician Internal Medicine 11/17/18 Wan Rodríguez [facility] [place] [address] 06/02/19 Rozina Petersen MD Gastroenterology 03/30/20 documented as of this encounter
--- OUTSIDE RECORDS SUMMARY | 2025-04-01 12:14 | XMS_ITS | Encounter Summary ---
Author Organization [facility] Address [address] [place] [address] Phone Care Team Providers Care Blade Bender Furnace Tender Name Role Phone Joe Delaney MD Primary Care Provider [phone] Twan Davis MD Unavailable [phone] Wan Rodríguez Unavailable [phone] Rozina Petersen MD Unavailable Encounter Details Date Type Department Care Team Description 09/20/2019 Email from [facility] Internal Medicine [address] [place] [phone] [place] [address] [place] [address] [phone] Social History Tobacco Use Types Packs/Day Years [...] Visit Internal Medicine Joe Delaney MD [address] [place], [place] 1450213 08/03/2025 Office Visit Pain Medicine Patricia Sotelo PA [address] [place], [place] [phone] documented as of this encounter Visit Diagnoses Not on filedocumented in this encounter Additional Health Concerns Infection Onset Date Last Indicated Resolved Time COVID-19 Rule Out Comment:04/29/2020 Negative (PAT) 02/20/2020 COVID19 NEGATIVE (PAT) 02/23/2020 02/23/2020 02/23/2020 10:42 AM EDT documented as of this encounter Care Teams Blade Bender Furnace Tender Relationship Specialty Start Date End Date Joe Delaney MD [address] [place] [address] PCP - General Internal Medicine 11/17/18 Twan Davis MD [address] [place] [address] Referring Physician Internal Medicine 11/17/18 Wan Rodríguez [facility] Vlad Katz [facility] [place] [address] 06/02/19 Rozina Petersen MD Gastroenterology 03/30/20 documented as of this encounter
--- OUTSIDE RECORDS SUMMARY | 2025-04-01 12:14 | XMS_ITS | Encounter Summary ---
Author Organization [facility] Address [address] [place] [address] Phone Care Team Providers Care Label Coder Name Role Phone Joe Delaney MD Primary Care Provider [phone] Twan Davis MD Unavailable [phone] Wan Rodríguez Unavailable [phone] Rozina Petersen MD Unavailable Encounter Details Date Type Department Care Team Description 05/05/2020 Email from [facility] Internal Medicine [address] [place] [phone] [place] [address] [place] [address] [phone] Social History Tobacco Use Types Packs/Day Years [...] Visit Internal Medicine Joe Delaney MD [address] [place], [place] [phone] 08/03/2025 Office Visit Pain Medicine Patricia Sotelo PA [address] [place], [place] [phone] documented as of this encounter Visit Diagnoses Not on filedocumented in this encounter Care Teams Label Coder Relationship Specialty Start Date End Date Joe Delaney MD [address] [place], [place] [phone] PCP - General Internal Medicine 11/17/18 Twan Davis MD [address] [place] [address] Referring Physician Internal Medicine 11/17/18 Wan Rodríguez [facility] [place] [address] 06/02/19 Rozina Petersen MD Gastroenterology 03/30/20 documented as of this encounter
--- OUTSIDE RECORDS SUMMARY | 2025-04-01 12:14 | XMS_ITS | Encounter Summary ---
Author Organization [facility] Address [address] [place] [address] Phone Care Team Providers Care Sap Bpc Developer Name Role Phone Joe Delaney MD Primary Care Provider [phone] Twan Davis MD Unavailable [phone] Wan Rodríguez Unavailable Rozina Petersen MD Unavailable Encounter Details Date Type Department Care Team Description 11/20/2016 [facility] Information Management - Release of Information [address] [place] [phone] Load Provider, Historical Social History Tobacco [...] Office Visit Internal Medicine Joe Delaney MD [facility] [place], [place] 1779413 08/03/2025 Office Visit Pain Medicine Patricia Sotelo PA [address] [place], [place] 0191013 documented as of this encounter Procedures Procedure Name Priority Date/Time Associated Diagnosis Comments METHYLMALONIC ACID Routine 11/20/2016 8: 32 AM EDT documented in this encounter Results * Methylmalonic Acid (11/20/2016 8:32 AM EDT) Methylmalonic Acid, S 137 0 - 378 nmol/L [facility] 11/20/2016 8:32 AM EDT 11/20/2016 8:36 AM EDT Narrative [facility] - 11/22/2016 4:32 PM EDT Testing performed at: [BN] [facility], [place], [address], , Leather Lacer: Carter Norton MD Historical Load Provider LAB BLOOD ORDER [place] [facility] documented in this encounter Visit Diagnoses Not on filedocumented in this encounter Additional Health Concerns Infection Onset Date Last Indicated Resolved Time COVID-19 Rule Out Comment:04/29/2020 Negative (PAT) 02/20/2020 COVID19 NEGATIVE (PAT) 02/23/2020 02/23/2020 02/23/2020 10:42 AM EDT documented as of this encounter Care Teams Sap Bpc Developer Relationship Specialty Start Date End Date Joe Delaney MD [facility] [place] [address] PCP - General Internal Medicine 11/17/18 [place] [address] [place] [address] Referring Physician Internal Medicine 11/17/18 Wan Rodríguez [facility] Vlad [facility] [place] [address] 06/02/19 Rozina Petersen MD Gastroenterology 03/30/20 documented as of this encounter
--- OUTSIDE RECORDS SUMMARY | 2025-04-01 12:14 | XMS_ITS | Encounter Summary ---
Author Organization [facility] Address [address] [place] [address] Phone Care Team Providers Care Oil Well Services Superintendent Name Role Phone Joe Delaney MD Primary Care Provider [phone] Twan Davis MD Unavailable [phone] Wan Rodríguez Unavailable [phone] Rozina Petersen MD Unavailable Encounter Details Date Type Department Care Team Description 02/19/2017 Conversion Internal Medicine [address] [place] [phone] Joe Delaney MD [address] [place], [place] [phone] Social History Tobacco Use Types Packs/Day Years [...] Acupuncture recently whichhas helped. Saw Urologist in [place] and states PSA went down from 9 [...] Number of Children: 3.. Place of : [place]. 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 Sleep History: 6-8 hrs;.Travel History: [place];. Tobacco use: never smoker. Passive smoke exposure: [...] visit) - verified by patient or patient student services representative LOSARTAN POTASSIUM 100 MG TABS (LOSARTAN [...] meds. Weight Management: no New Orders: SNOMED-CT: [id number] Patient Encounter for Meaningful Use [[id number]] T4, FREE [5015] TSH [5020] Comprehensive Metabolic Profile 147251 [97097] Iron binding, Total Iron, Iron Saturation Panel [4140] CBC,manual diff if indicated 874942 [18815] Disposition: return to clinic in 6 months, lab Dr Davis Tdap: Done Tdap by: Cecy Hernadez LPN Tdap provided by: floor-stock Tdap Mfr: Face-Me Tdap Trade Name: [employer]rix Tdap Rte: intramuscular Tdap Lot: [id number] Tdap [facility] number: [id number] Tdap Exp: 03/21/2019 Tdap Site: left arm [...] this documentation has been converted into the [employer] EHR from our [employer] EMR forinformational purposes only. This documentation must not be released or used for legal purposes as the note is missing the responsible provider???s signature. A copy of the legal medical record can be obtained or printed only from the [employer]. yes Please note, this documentation has been converted into the [employer] EHR from our [employer] EMR forinformational purposes only. This documentation must not be released or used for legal purposes as the note is missing the responsible provider???s signature. A copy of the legal medical record can be obtained or printed only from the [employer]. cc send to Please note, this documentation has been converted into the [employer] EHR from our [employer] EMR forinformational purposes only. This documentation must not be released or used for legal purposes as the note is missing the responsible provider???s signature. A copy of the legal medical record can be obtained or printed only from the [employer] EMR. documented in this encounter Plan of Treatment Upcoming Encounters Date Type Specialty Care Team Description 05/25/2025 Office Visit Internal Medicine Joe Delaney MD [address] [place], [place] [phone] 08/03/2025 Office Visit Pain Medicine Patricia Sotelo PA [address] [place] [address] documented as of this encounter Visit Diagnoses Not on filedocumented in this encounter Additional Health Concerns Infection Onset Date Last Indicated Resolved Time COVID-19 Rule Out Comment:04/29/2020 Negative (PAT) 02/20/2020 COVID19 NEGATIVE (PAT) 02/23/2020 02/23/2020 02/23/2020 10:42 AM EDT documented as of this encounter Care Teams Oil Well Services Superintendent Relationship Specialty Start Date End Date Joe Delaney MD [address] [place] [address] PCP - General Internal Medicine 11/17/18 [place] [address] [place] [address] Referring Physician Internal Medicine 11/17/18 Wan Rodríguez [facility] [place] [address] 06/02/19 Rozina Petersen MD Gastroenterology 03/30/20 documented as of this encounter
--- OUTSIDE RECORDS SUMMARY | 2025-04-01 12:14 | XMS_ITS | Encounter Summary ---
Author Organization [facility] Address [address] [place] [address] Phone Care Team Providers Care Certified Alcohol And Drug Counselor Name Role Phone Joe Delaney MD Primary Care Provider [phone] Twan Davis MD Unavailable [phone] Wan Rodríguez Unavailable [phone] Rozina Petersen MD Unavailable Encounter Details Date Type Department Care Team Description 03/11/2022 Email from [facility] Internal Medicine [address] [place] [phone] Joe Delaney MD [address] [place] [address] [phone] Social History Tobacco Use Types Packs/Day Years [...] Visit Internal Medicine Joe Delaney MD [address] [place], [place] [phone] 08/03/2025 Office Visit Pain Medicine Patricia Sotelo PA [address] [place], [place] [phone] documented as of this encounter Visit Diagnoses Not on filedocumented in this encounter Care Teams Certified Alcohol And Drug Counselor Relationship Specialty Start Date End Date Joe Delaney MD [address] [place], [place] 8751713 PCP - General Internal Medicine 11/17/18 Twan Davis MD [address] [place] [address] Referring Physician Internal Medicine 11/17/18 Wan Rodríguez [facility] [place] [address] 06/02/19 Rozina Petersen MD Gastroenterology 03/30/20 documented as of this encounter
--- OUTSIDE RECORDS SUMMARY | 2025-04-01 12:14 | XMS_ITS | Encounter Summary ---
Author Organization [facility] Address [address] [place] [address] Phone Care Team Providers Care Actuary Manager Name Role Phone Joe Delaney MD Primary Care Provider [phone] Twan Davis MD Unavailable [phone] Wan Rodríguez Unavailable [phone] Rozina Petersen MD Unavailable Encounter Details Date Type Department Care Team Description 05/05/2020 Email from [facility] Orthopedics [address] [place] [phone] Kimberly Herndon PA [address] [place] [address] [phone] Social History Tobacco Use Types Packs/Day Years [...] Visit Internal Medicine Joe Delaney MD [address] [place], [place] [phone] 08/03/2025 Office Visit Pain Medicine Patricia Sotelo PA [address] [place], [place] 8848013 documented as of this encounter Visit Diagnoses Not on filedocumented in this encounter Care Teams Actuary Manager Relationship Specialty Start Date End Date Joe Delaney MD [address] [place] [address] PCP - General Internal Medicine 11/17/18 Twan Davis MD [address] [place] [address] Referring Physician Internal Medicine 11/17/18 Wan Rodríguez [facility] [place] [address] 06/02/19 Rozina Petersen MD Gastroenterology 03/30/20 documented as of this encounter
--- OUTSIDE RECORDS SUMMARY | 2025-04-01 12:14 | XMS_ITS | Encounter Summary ---
Author Organization [facility] Address [address] [place] [address] Phone Care Team Providers Care Shape Brick Molder Name Role Phone Joe Delaney MD Primary Care Provider [phone] Twan Davis MD Unavailable [phone] Wan Rodríguez Unavailable [phone] Rozina Petersen MD Unavailable Encounter Details Date Type Department Care Team Description 08/12/2023 Email from [facility] Internal Medicine [address] [place] [phone] Joe Delaney MD [address] [place] [address] Social History Tobacco Use Types Packs/Day [...] Office Visit Internal Medicine Joe Delaney MD [address] [place] [address] 08/03/2025 Office Visit Pain Medicine Patricia Sotelo PA [address] [place], [place] [phone] documented as of this encounter Visit Diagnoses Not on filedocumented in this encounter Care Teams Shape Brick Molder Relationship Specialty Start Date End Date Joe Delaney MD [address] [place] [address] PCP - General Internal Medicine 11/17/18 [place] [address] [place] [address] Referring Physician Internal Medicine 11/17/18 Wan Rodríguez [facility] [place] [phone] 06/02/19 Rozina Petersen MD Gastroenterology 03/30/20 documented as of this encounter
--- OUTSIDE RECORDS SUMMARY | 2025-04-01 12:14 | XMS_ITS | Encounter Summary ---
Author Organization [facility] Address [address] [place] [address] Phone Care Team Providers Care Web Content Executive Name Role Phone Joe Delaney MD Primary Care Provider [phone] Twan Davis MD Unavailable [phone] Wan Rodríguez Unavailable [phone] Rozina Petersen MD Unavailable Encounter Details Date Type Department Care Team Description 02/06/2022 Email from [facility] [address] [place] [phone] Mariela Bowden, DPM [address] [place], [place] [phone] Social History Tobacco Use Types Packs/Day Years [...] Internal Medicine Joe Delaney MD [address] [place] [address] 08/03/2025 Office Visit Pain Medicine Patricia Sotelo PA [address] [place], [place] [phone] documented as of this encounter Visit Diagnoses Not on filedocumented in this encounter Care Teams Web Content Executive Relationship Specialty Start Date End Date Joe Delaney MD [address] [place], [place] [phone] PCP - General Internal Medicine 11/17/18 Twan Davis MD [address] [place] [address] Referring Physician Internal Medicine 11/17/18 Wan Rodríguez [facility] Vlad Katz [facility] [place] [address] 06/02/19 Rozina Petersen MD Gastroenterology 03/30/20 documented as of this encounter
--- OUTSIDE RECORDS SUMMARY | 2025-04-01 12:14 | XMS_ITS | Encounter Summary ---
Author Organization [facility] Address [address] [place] [address] Phone Care Team Providers Care District Court Justice Name Role Phone Joe Delaney MD Primary Care Provider [phone] Twan Davis MD Unavailable [phone] Wan Rodríguez Unavailable [phone] Rozina Petersen MD Unavailable Encounter Details Date Type Department Care Team Description 07/23/2023 Email from [facility] Internal Medicine [address] [place] [phone] Joe Delaney MD [address] [place] [address] Social History Tobacco Use Types Packs/Day [...] Visit Internal Medicine Joe Delaney MD [address] [place] [address] 08/03/2025 Office Visit Pain Medicine Patricia Sotelo PA [address] [place], [place] [phone] documented as of this encounter Visit Diagnoses Not on filedocumented in this encounter Care Teams District Court Justice Relationship Specialty Start Date End Date Joe Delaney MD [address] [place] [address] PCP - General Internal Medicine 11/17/18 [place] [address] [place] [address] Referring Physician Internal Medicine 11/17/18 Wan Rodríguez [facility] [place] [phone] 06/02/19 Rozina Petersen MD Gastroenterology 03/30/20 documented as of this encounter
--- OUTSIDE RECORDS SUMMARY | 2025-04-01 12:14 | XMS_ITS | Encounter Summary ---
Author Organization [facility] Address [address] [place] [address] Phone Care Team Providers Care Restorative Coordinator Name Role Phone Joe Delaney MD Primary Care Provider Twan Davis MD Unavailable [phone] Wan Rodríguez Unavailable Rozina Petersen MD Unavailable Encounter Details Date Type Department Care Team Description 08/17/2020 Orders Only Internal Medicine [address] [place] [phone] Joe Delaney MD [address] [place] [address] [phone] Multiple thyroid nodules; Paroxysmal atrial fibrillation; Essential [...] Office Visit Internal Medicine Joe Delaney MD [address] [place] [address] [phone] 08/03/2025 Office Visit Pain Medicine Patricia Sotelo PA [address] [place] [address] documented as of this encounter Procedures Procedure [...] ORDERABLES FREQUENCY [facility] [address] [place], [place] [phone] * (ABNORMAL) Comprehensive metabolic panel (08/17/2020 8:22 [...] [facility] Comment:If patient is Radha n Tristanian multiply result by 1.212 Alb/Glob ratio 1.9(H) 1.2 - 1.8 [facility] Globulin 2.3 1.6 - 3.9 g/dL [facility] Blood 08/17/2020 8:22 AM EST 08/17/2020 8:25 AM EST Joe Delaney MD LAB BLOOD ORDERABLES Performing Organization Address [facility] Co de Phone Number AP DIAZ [address] [place], [place] [phone] * Magnesium (08/17/2020 8:22 AM EST) Magnesium 2.00 1.90 - 2.70 mg/dL [facility] Blood 08/17/2020 8:22 AM EST 08/17/2020 8:25 AM EST Joe Delaney MD LAB BLOOD ORDERABLES Performing Organization Address [facility] Co de Phone Number AP DIAZ [address] [place], [place] [phone] * TSH (08/17/2020 8:22 AM EST) TSH 1.81 0.50 - 6.00 uIU/mL [facility] Blood 08/17/2020 8:22 AM EST 08/17/2020 8:25 AM EST Joe Delaney MD LAB BLOOD ORDERABLES Performing Organization Address [facility] Co de Phone Number AP DIAZ [address] [place], [place] [phone] documented in this encounter Visit Diagnoses Diagnosis Multiple thyroid nodules Nontoxic multinodular goiter Paroxysmal atrial fibrillation Atrial fibrillation Essential hypertension Unspecified essential hypertension GERD without esophagitis Esophageal reflux documented in this encounter Care Teams Restorative Coordinator Relationship Specialty Start Date End Date Joe Delaney MD [address] [place] [address] PCP - General Internal Medicine 11/17/18 Twan Davis MD [address] [place] [address] Referring Physician Internal Medicine 11/17/18 Wan Rodríguez [facility] [place] [address] 06/02/19 Rozina Petersen MD Gastroenterology 03/30/20 documented as of this encounter
--- OUTSIDE RECORDS SUMMARY | 2025-04-01 12:14 | XMS_ITS | Encounter Summary ---
Author Organization [facility] Address [address] [place] [address] Phone Care Team Providers Care Wire Straightening Machine Operator Name Role Phone Joe Delaney MD Primary Care Provider [phone] Twan Davis MD Unavailable [phone] Wan Rodríguez Unavailable [phone] Rozina Petersen MD Unavailable Encounter Details Date Type Department Care Team Description 01/10/2023 Email from [facility] Internal Medicine [address] [place] [phone] Joe Delaney MD [address] [place] [address] Social History Tobacco Use Types Packs/Day [...] Visit Internal Medicine Joe Delaney MD [address] [place] [address] 08/03/2025 Office Visit Pain Medicine Patricia Sotelo PA [address] [place], [place] [phone] documented as of this encounter Visit Diagnoses Not on filedocumented in this encounter Care Teams Wire Straightening Machine Operator Relationship Specialty Start Date End Date Joe Delaney MD [address] [place] [address] PCP - General Internal Medicine 11/17/18 Twan Davis MD [address] [place] [address] Referring Physician Internal Medicine 11/17/18 Wan Rodríguez [facility] [place] [address] 06/02/19 Rozina Petersen MD Gastroenterology 03/30/20 documented as of this encounter
--- OUTSIDE RECORDS SUMMARY | 2025-04-01 12:14 | XMS_ITS | Encounter Summary ---
Author Organization [facility] Address [address] [place] [address] Phone Care Team Providers Care Pack Changer Name Role Phone Joe Delaney MD Primary Care Provider [phone] Twan Davis MD Unavailable [phone] Wan Rodríguez Unavailable Rozina Petersen MD Unavailable Encounter Details Date Type Department Care Team Description 12/31/2023 Email from [employer] [address] [place] [phone] Patricia Sotelo PA [address] [place] [address] [phone] Social History Tobacco Use Types Packs/Day Years [...] Visit Internal Medicine Joe Delaney MD [address] [place] [address] 08/03/2025 Office Visit Pain Medicine Patricia Sotelo PA [address] [place], [place] [phone] documented as of this encounter Visit Diagnoses Not on filedocumented in this encounter Care Teams Pack Changer Relationship Specialty Start Date End Date Joe Delaney MD [address] [place], [place] [phone] PCP - General Internal Medicine 11/17/18 Twan Davis MD [address] [place] [address] Referring Physician Internal Medicine 11/17/18 Wan Rodríguez [facility] [place] [address] 06/02/19 Rozina Petersen MD Gastroenterology 03/30/20 documented as of this encounter
--- OUTSIDE RECORDS SUMMARY | 2025-04-01 12:14 | XMS_ITS | Encounter Summary ---
Author Organization [facility] Address [address] [place] [address] Phone Care Team Providers Care Barrel Cooper Name Role Phone Joe Delaney MD Primary Care Provider [phone] Twan Davis MD Unavailable [phone] Wan Rodríguez Unavailable [phone] Rozina Petersen MD Unavailable Encounter Details Date Type Department Care Team Description 09/29/2019 Email from [facility] Internal Medicine [address] [place] [phone] Joe Delaney MD [address] [place] [address] [phone] Social History Tobacco Use Types Packs/Day Years [...] Visit Internal Medicine Joe Delaney MD [address] [place], [place] [phone] 08/03/2025 Office Visit Pain Medicine Patricia Sotelo PA [address] [place], [place] [phone] documented as of this encounter Visit Diagnoses Not on filedocumented in this encounter Additional Health Concerns Infection Onset Date Last Indicated Resolved Time COVID-19 Rule Out Comment:04/29/2020 Negative (PAT) 02/20/2020 COVID19 NEGATIVE (PAT) 02/23/2020 02/23/2020 02/23/2020 10:42 AM EDT documented as of this encounter Care Teams Barrel Cooper Relationship Specialty Start Date End Date Joe Delaney MD [address] [place] [address] PCP - General Internal Medicine 11/17/18 Twan Davis MD [address] [place] [address] Referring Physician Internal Medicine 11/17/18 Wan Rodríguez [facility] [place] [address] 06/02/19 Rozina Petersen MD Gastroenterology 03/30/20 documented as of this encounter
--- OUTSIDE RECORDS SUMMARY | 2025-04-01 12:14 | XMS_ITS | Encounter Summary ---
Author Organization [facility] Address [address] [place] [address] Phone Care Team Providers Care Treatment Technician Name Role Phone Joe Delaney MD Primary Care Provider Twan Davis MD Unavailable [phone] Wan Rodríguez Unavailable [phone] Rozina Petersen MD Unavailable Encounter Details Date Type Department Care Team Description 02/06/2022 Email from [employer] Internal Medicine [address] [place] [phone] Joe Delaney MD [address] [place] [address] [phone] Social History Tobacco Use Types Packs/Day Years [...] Visit Internal Medicine Joe Delaney MD [address] [place], [place] [phone] 08/03/2025 Office Visit Pain Medicine Patricia Sotelo PA [address] [place], [place] [phone] documented as of this encounter Visit Diagnoses Not on filedocumented in this encounter Care Teams Treatment Technician Relationship Specialty Start Date End Date Joe Delaney MD [address] [place], [place] [phone] PCP - General Internal Medicine 11/17/18 Twan Davis MD [address] [place] [address] Referring Physician Internal Medicine 11/17/18 Wan Rodríguez [facility] [place] [address] 06/02/19 Rozina Petersen MD Gastroenterology 03/30/20 documented as of this encounter
--- OUTSIDE RECORDS SUMMARY | 2025-04-01 12:14 | XMS_ITS | Encounter Summary ---
Author Organization [facility] Address [address] [place] [address] Phone Care Team Providers Care Home Service Demonstrator Name Role Phone Joe Delaney MD Primary Care Provider [phone] Twan Davis MD Unavailable [phone] Wan Rodríguez Unavailable [phone] Rozina Petersen MD Unavailable Encounter Details Date Type Department Care Team Description 03/26/2017 Conversion Orthopedics [address] [place] [phone] Eleanor Mcfarland PA [address] [place] [address] Social History Tobacco Use Types Packs/Day Years [...] of Knee 4 or More Views-Complete, right ([id number]) - Signed Please note, this documentation has been converted into the [employer] EHR from our [employer] EMR forinformational purposes only. This documentation must not be released or used for legal purposes as the note is missing the responsible provider???s signature. A copy of the legal medical record can be obtained or printed only from the [employer] EMR. documented in this encounter Plan of Treatment Upcoming Encounters Date Type Specialty Care Team Description 05/25/2025 Office Visit Internal Medicine Joe Delaney MD [address] [place], [place] [phone] 08/03/2025 Office Visit Pain Medicine Patricia Sotelo PA [address] [place], [place] [phone] documented as of this encounter Visit Diagnoses Not on filedocumented in this encounter Additional Health Concerns Infection Onset Date Last Indicated Resolved Time COVID-19 Rule Out Comment:04/29/2020 Negative (PAT) 02/20/2020 COVID19 NEGATIVE (PAT) 02/23/2020 02/23/2020 02/23/2020 10:42 AM EDT documented as of this encounter Care Teams Home Service Demonstrator Relationship Specialty Start Date End Date Joe Delaney MD [address] [place] [address] PCP - General Internal Medicine 11/17/18 [place] [address] [place] [address] Referring Physician Internal Medicine 11/17/18 Wan Rodríguez [facility] [place] [address] 06/02/19 Rozina Petersen MD Gastroenterology 03/30/20 documented as of this encounter
--- OUTSIDE RECORDS SUMMARY | 2025-04-01 12:14 | XMS_ITS | Encounter Summary ---
Author Organization [facility] Address [address] [place] [address] Phone Care Team Providers Care Ssrs Developer Name Role Phone Joe Delaney MD Primary Care Provider [phone] Twan Davis MD Unavailable [phone] Wan Rodríguez Unavailable [phone] Rozina Petersen MD Unavailable Encounter Details Date Type Department Care Team Description 02/07/[address] [facility] Orthopedics [address] [place] [phone] Kimberly Herndon PA [address] [place] [address] Social History Tobacco Use Types Packs/Day [...] Office Visit Internal Medicine Joe Delaney MD [address] [place] [address] 08/03/2025 Office Visit Pain Medicine Patricia Sotelo PA [address] [place], [place] [phone] documented as of this encounter Visit Diagnoses Not on filedocumented in this encounter Care Teams Ssrs Developer Relationship Specialty Start Date End Date Joe Delaney MD [address] [place] [address] PCP - General Internal Medicine 11/17/18 Twan Davis MD [address] [place] [address] Referring Physician Internal Medicine 11/17/18 Wan Rodríguez [facility] [place] [address] 06/02/19 Rozina Petersen MD Gastroenterology 03/30/20 documented as of this encounter
--- OUTSIDE RECORDS SUMMARY | 2025-04-01 12:14 | XMS_ITS | Encounter Summary ---
Author Organization [facility] Address [address] [place] [address] Phone Care Team Providers Care Oil Dispenser Name Role Phone Joe Delaney MD Primary Care Provider [phone] Twna Davis MD Unavailable [phone] Wan Rodríguez Unavailable [phone] Rozina Petersen MD Unavailable Reason for Visit * Reason Comments Other Encounter Details Date Type Department Care Team Description 06/05/2023 Refill Internal Medicine [address] [place] [phone] [place] [address] [place] [address] Essential hypertension; Paroxysmal atrial fibrillation Social History [...] Visit Internal Medicine Joe Delaney MD [address] [place] [address] [phone] 08/03/2025 Office [place] [address] [place] [address] documented as of this encounter Visit Diagnoses Diagnosis Essential hypertension Unspecified essential hypertension Paroxysmal atrial fibrillation Atrial fibrillation documented in this encounter Care Teams Oil Dispenser Relationship Specialty Start Date End Date Joe Delaney MD [facility]9 [place], [place] [phone] PCP - General Internal Medicine 11/17/18 Twan Davis MD [address] [place] [address] Referring Physician Internal Medicine 11/17/18 Wan Rodríguez [facility] [place] [address] 06/02/19 Rozina Petersen MD Gastroenterology 03/30/20 documented as of this encounter
--- OUTSIDE RECORDS SUMMARY | 2025-04-01 12:14 | XMS_ITS | Encounter Summary ---
Author Organization [facility] Address [address] [place] [address] Phone Care Team Providers Care Medical Geneticist Name Role Phone Joe Delaney MD Primary Care Provider [phone] Twan Davis MD Unavailable [phone] Wan Rodríguez Unavailable [phone] Rozina Petersen MD Unavailable Encounter Details Date Type Department Care Team Description 07/25/2023 Email from [facility] [address] [place] [phone] Kimberly Herndon PA [address] [place] [address] Social History Tobacco Use Types Packs/Day [...] Visit Internal Medicine Joe Delaney MD [address] [place] [address] 08/03/2025 Office Visit Pain Medicine Patricia Sotelo PA [address] [place], [place] [phone] documented as of this encounter Visit Diagnoses Not on filedocumented in this encounter Care Teams Medical Geneticist Relationship Specialty Start Date End Date Joe Delaney MD [address] [place] [address] PCP - General Internal Medicine 11/17/18 Twan Davis MD [address] [place] [address] Referring Physician Internal Medicine 11/17/18 Wan Rodríguez [facility] [place] [address] 06/02/19 Rozina Petersen MD Gastroenterology 03/30/20 documented as of this encounter
--- OUTSIDE RECORDS SUMMARY | 2025-04-01 12:14 | XMS_ITS | Encounter Summary ---
Author Organization [facility] Address [address] [place] [address] Phone Care Team Providers Care Lead Engineer Name Role Phone Joe Delaney MD Primary Care Provider [phone] Twan Davis MD Unavailable [phone] Wan Rodríguez Unavailable Rozina Petersen MD Unavailable Encounter Details Date Type Department Care Team Description 03/29/2020 Email from [facility] Internal Medicine [address] [place] [phone] Joe Delaney MD [address] [place] [address] [phone] Social History Tobacco Use Types Packs/Day Years [...] Visit Internal Medicine Joe Delaney MD [address] [place], [place] [phone] 08/03/2025 Office Visit Pain Medicine Patricia Sotelo PA [address] [place], [place] 1895313 documented as of this encounter Visit Diagnoses Not on filedocumented in this encounter Care Teams Lead Engineer Relationship Specialty Start Date End Date Joe Delaney MD [address] [place], [place] [phone] PCP - General Internal Medicine 11/17/18 Twan Davis MD [address] [place] [address] Referring Physician Internal Medicine 11/17/18 Wan Rodríguez [place] [address] 06/02/19 Rozina Petersen MD Gastroenterology 03/30/20 documented as of this encounter
--- OUTSIDE RECORDS SUMMARY | 2025-04-01 12:14 | XMS_ITS | Continuity of Care Document ---
Author Organization [facility] Address [address] [address] Phone [phone] Care Team Providers Care Machine Rough Rounder Name Role Phone Leroy Story M.D. Care Team Information Rece iver Unavailable
--- OUTSIDE RECORDS SUMMARY | 2025-04-01 12:14 | XMS_ITS | Referral Summary ---
Author Organization [facility] Address [address] [address] Care Team Providers Care Contracts Representative Name Role Phone Joe Delaney MD Primary Care Provider [phone] Allergies Active Allergy Reactions Criticality Noted Date [...] 68 10/20/2024 11:35 AM EDT Temperature 36.3 C (97.4 F) 10/20/2024 8:12 AM EDT Respiratory Rate 11 10/20/2024 11:35 AM EDT Oxygen Saturation 98% 10/20/2024 11:36 AM EDT Inhaled Oxygen Concentration - - Weight 98.4 kg (217 lb) 10/20/2024 8:12 AM EDT Height 188 cm (6' 2 ) 10/20/2024 8:12 AM EDT Body Mass Index 27.86 10/20/2024 8:12 AM EDT Plan of Treatment Not on file Insurance [employer] [place] [employer] Care Teams Contracts Representative Relationship Specialty Start Date End Date Joe Delaney MD [address] [place] [address] PCP - General General Medicine 03/17/20
--- OUTSIDE RECORDS SUMMARY | 2025-04-01 12:14 | XMS_ITS | Encounter Summary ---
Author Organization [facility] Address [address] [place] [address] Phone Care Team Providers Care Intensive Care Specialist Name Role Phone Joe Delaney MD Primary Care Provider Twan Davis MD Unavailable [phone] Wan Rodríguez Unavailable [phone] Rozina Petersen MD Unavailable Encounter Details Date Type Department Care Team Description 09/11/2024 Email from [facility] [address] [place] [phone] Joe Delaney MD [address] [place] [address] Social History Tobacco Use Types Packs/Day [...] Office Visit Internal Medicine Joe Delaney MD [address] [place] [address] 08/03/2025 Office Visit Pain Medicine Patricia Sotelo PA [address] [place], [place] [phone] documented as of this encounter Visit Diagnoses Not on filedocumented in this encounter Care Teams Intensive Care Specialist Relationship Specialty Start Date End Date Joe Delaney MD [address] [place] [address] PCP - General Internal Medicine 11/17/18 [place] [address] [place] [address] Referring Physician Internal Medicine 11/17/18 Wan Rod[facility]guez [facility] [place] [phone] 06/02/19 Rozina Petersen MD Gastroenterology 03/30/20 documented as of this encounter
--- OUTSIDE RECORDS SUMMARY | 2025-04-01 12:14 | XMS_ITS | Encounter Summary ---
Author Organization [facility] Address [address] [place] [address] Phone Care Team Providers Care Stencil Typist Name Role Phone Joe Delaney MD Primary Care Provider [phone] Twan Davis MD Unavailable [phone] Wan Rodríguez Unavailable [phone] Rozina Petersen MD Unavailable Encounter Details Date Type Department Care Team Description 11/02/2016 Conversion Endocrinology [address] [place] [phone] Jayjay Allred MD [address] [place] [address] Social History Tobacco Use Types Packs/Day Years [...] MD, [facility] [place], [place] Chief Complaint: f/up tbx HPI: 66-year-old [...] is now on anticoagulation using Xarelto. The [place] Thyroid Association (DEREK) and the [place] Association of Clinical Endocrinologists (AACE) recommend ultrasound-guided [...] BPH. Past Surgical History: Tonsillectomy, childhood; . Cassel teeth extracted;. Dental implants. . Prost bx. Family History reviewed - no changes required Additional comments:Mother age 88, kidney cancer, hysterectomy, breast cancer, cancerous colonpolyp. Father is , at age 83, [place] suspected. Had high PSA but not Ca. 1 brother is alive and well. 1 sister is alive and well. Social History (reviewed history from 09/20/2016 - no changes required): Marital Status: . . Number of Children: 3. Place ofBirth: [place]. 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 Sleep History: 6-8 hrs;. Travel History: [place];. Tobacco use: never smoker. Passive smoke exposure: [...] Problems (including changes): SYMPTOM, MEMORY LOSS (ICD-780.93) (PJP37-D79.3) GOITER (ICD-240.9) (MYU93-S80.9) ANEMIA, MICROCYTIC (ICD-281.9) (HNV97-S82.9) GOITER, MULTINODULAR (ICD-241.1) (HSP12-G10.2) HEMORRHOIDS (ICD-455.6) (LKB48-T53.9) KEY'S ESOPHAGUS (ICD-530.85) (TON25-N42.70) THYROID NODULES (ICD-241.0) (ZEY29-X07.1) ANXIETY (ICD-300.00) (ZFD80-Z96.9) AURAS (ICD-346.50) (FNE00-V20.109) TIA (ICD-435.9) (KWH77-X09.9) ATRIAL FIBRILLATION, PAROXYSMAL (ICD-427.31) (ZOZ07-H33.0) LUMBAGO (ICD-724.2) (KIA10-Y82.5) HX OF BEE STING ALLERGY (ICD-V15.06) (KVD99-F66.030) ESSENTIAL HYPERTENSION (ICD-401.9) (JNJ38-G91) OSTEOARTHRITIS, KNEE, RIGHT (ICD-715.96) (ZLA61-T98.9) INGROWING NAIL (ICD-703.0) (GIY96-K22.0) KNEE PAIN, RIGHT (ICD-719.46) (PDY86-D09.561) ? of ADENOCARCINOMA, PROSTATE (ICD-185) (SUM05-R19) Sx of DEGENERATIVE JOINT DISEASE, KNEE (ICD-715.96) (IRU36-A90.9) BENIGN PROSTATIC HYPERPLASIA (ICD-600.00) (XIJ45-R19.0) PSA, INCREASED (ICD-790.93) (UDJ25-L72.2) SCREENING FOR UNSPECIFIED CONDITION (ICD-V82.9) (JVN61-K34.9) SCREENING FOR LIPOID DISORDERS (ICD-V77.91) (XEW28-G31.220) POSTNASAL DRIP (ICD-784.91) (HCQ94-A25.82) GERD (ICD-530.81) (YHV74-O68.9) Problem Assessments: Medications (including changes): LOSARTAN POTASSIUM [...] and they will be promptlyaddressed. Orders: SNOMED-CT: [id number] Patient Encounter for Meaningful Use [[id number]] T4, FREE [5015] TSH [5020] Thyroid peroxidase antibodies (TPO) [296765] Thyroid Stimulating Immunoglobulin [224317] Ultrasound Head & neck-soft tissues (eg. thyroid) [USSOFTISSU] [id number] Patient - Detailed with Moderate Complexity [[id number]-[id number]] cc: pcp Injections ]follow up in nov with us/and labs Lorne Pickard MA November 02, 2016 10:40 AM Please note, this documentation has been converted into the [employer] EHR from our [employer] forinformational purposes only. This documentation must not be released or used for legal purposes as the note is missing the responsible provider???s signature. A copy of the legal medical record can be obtained or printed only from the [employer] EMR. documented in this encounter Plan of Treatment Upcoming Encounters Date Type Specialty Care Team Description 05/25/2025 Office Visit [place] [address] [place] [address] [phone] 08/03/2025 Office Visit Pain Medicine Patricia Sotelo PA [address] [place], [place] [phone] documented as of this encounter Visit Diagnoses Not on filedocumented in this encounter Additional Health Concerns Infection Onset Date Last Indicated Resolved Time COVID-19 Rule Out Comment:04/29/2020 Negative (PAT) 02/20/2020 COVID19 NEGATIVE (PAT) 02/23/2020 02/23/2020 02/23/2020 10:42 AM EDT documented as of this encounter Care Teams Stencil Typist Relationship Specialty Start Date End Date Joe Delaney MD [facility] [place], [place] [phone] PCP - General Internal Medicine 11/17/18 [place] [address] [place] [address] Referring Physician Internal Medicine 11/17/18 Wan Rodríguez [facility] Urology [place] [phone] 06/02/19 Rozina Petersen MD Gastroenterology 03/30/20 documented as of this encounter
--- OUTSIDE RECORDS SUMMARY | 2025-04-01 12:14 | XMS_ITS | Encounter Summary ---
Author Organization [facility] Address [address] [place] [address] Phone Care Team Providers Care Distance Learning Coordinator Name Role Phone Joe Mensah MD Primary Care Provider [phone] Twan Davis MD Unavailable [phone] Wan Rodríguez Unavailable [phone] Rozina Petersen MD Unavailable Encounter Details Date Type Department Care Team Description 10/30/2016 Conversion Endocrinology [address] [place] [phone] Russ Allred MD [address] [place] [address] Social History Tobacco Use Types Packs/Day Years [...] : 1950 AGE: [age] year old ACCT: [id number] MR: [id number] LOC: [place] ORDERING: RUSS ALLRED MD EXAM: FXUS-GUIDED NEEDLE PLACEMENT ACCN: [id number] CLINICAL HISTORY: Ultrasound guidance provided for biopsy/fine needle aspiration of thyroid. Procedure performed by Dr. Allred. COMPARISON: Ultrasound performed on 06/26/2016. The outside prior ultrasound was performed at [facility] in [place], [place]. TECHNIQUE/FINDINGS/ IMPRESSION: 10 images obtained. Images [...] MD 10/30/2016 10:45 AM kitty A DL: [id number] A ID: [id number] cc: MD RUSS ROBERTSON MD REVIEWED ONLY Please note, this documentation has been converted into the [employer] EHR from our [employer] EMR forinformational purposes only. This documentation must not be released or used for legal purposes as the note is missing the responsible provider???s signature. A copy of the legal medical record can be obtained or printed only from the [employer] EMR. * Russ Allred MD - 10/30/2016 1:28 AM EDTAssociated Order(s): LAB SCAN LINK [facility] or Ext. [id number], Fax MEDICAL CYTOLOGY REPORT PATIENT: DILIP SOLANO : 1950 AGE: 66 Y SEX: M ACCT: [id number] PROCEDURE DATE: 10/30/2016 DATE RECEIVED: 10/30/2016 REQUESTING PROVIDER: RUSS ALLRED MD LOCATION: [facility] Case No. [id number] FINAL DIAGNOSIS: FINE NEEDLE ASPIRATION THYROID, RIGHT: 1. NEGATIVE FOR MALIGNANT CELLS 2. FOLLICULAR CELLS, MACROPHAGES AND COLLOID ARE PRESENT. CNE 10/31/16. Initial screening performed at [facility] [address] [place] [address]. Final diagnosis performed at [facility], [address] [place] [address]. CLINICAL DATA: SPEC PLACED INTO CYTOLYT AT: [...] MD Screened by: Electronically Signed by: ELLIE PALMA([facility]) MARK ANTOINE MD Reported Date/Time: 10/31/2016 12:37 Performed at [facility] [address] [place] [address] This report may include one or more immunohistochemistry stain results which use analyte-specific reagents. The interpretation of the above immunohistochemistry stain or stains is guided by published results in the medical literature, provided package information from the pre assembly wirer and by internal review of staining performance and assay validation within the Immunohistochemistry Department of [facility]. This testing has not been cleared or [...] controls. [facility] is a brand used by [facility] a subsidiary of [employer]) [employer]. Please note, this documentation has been converted into the [employer] EHR from our [employer] EMR forinformational purposes only. This documentation must not be released or used for legal purposes as the note is missing the responsible provider???s signature. A copy of the legal medical record can be obtained or printed only from the [employer] EMR. documented in this encounter Plan of Treatment Upcoming Encounters Date Type Specialty Care Team Description 05/25/2025 Office Visit Internal Medicine Joe Mensah MD [address] [place] [address] 08/03/2025 Office Visit Pain Medicine Patricia Sotelo PA [address] [place] [address] documented as of this encounter Procedures Procedure [...] SOLANO : 1950 AGE: 66year old ACCT: [id number] MR: [id number] LOC: TN ORDERING: RUSS ALLRED MD EXAM: FXUS-GUIDED NEEDLE PLACEMENT ACCN: [id number] CLINICAL HISTORY: Ultrasound guidance provided for biopsy/fine needle aspiration of thyroid. Procedure performed by Dr. Allred. COMPARISON: Ultrasound performed on 06/26/2016. The outside prior ultrasound was performed at [facility] in [place], [place]. TECHNIQUE/FINDINGS/ IMPRESSION: 10 images obtained. Images [...] MD 10/30/2016 10:45 AM kitty A DL: [id number] A ID: [id number] cc: MD RUSS ROBERTSON MD REVIEWED ONLY Please note, this documentation has been converted into the [employer] EHR fromour [employer] EMR for informational purposes only. This documentationmust not be released or used for legal purposes as the note is missing theresponsible provider s signature. A copy of the legal medical record canbe obtained or printed only from the [employer] EMR. Russ Allred MD HEALTH MAINTENANCE * LAB SCAN LINK (10/30/2016 1:28 AM EDT) Procedure Note Russ Allred MD - 10/30/2016 1:28 AM EDT CYTOLOGY [facility] or Ext. [id number], Fax MEDICAL CYTOLOGY REPORT PATIENT: DILIP SOLANO : 1950 AGE: 66 Y SEX: M ACCT: [id number] PROCEDURE DATE: 10/30/2016 DATE RECEIVED: 10/30/2016 REQUESTING PROVIDER: RUSS ALLRED MD LOCATION: [facility] Case No. [id number] FINAL DIAGNOSIS: FINE NEEDLE ASPIRATION THYROID, RIGHT: 1. NEGATIVE FOR MALIGNANT CELLS 2. FOLLICULAR CELLS, MACROPHAGES AND COLLOID ARE PRESENT. CNE 10/31/16. Initial screening performed at [facility] [employer] [address] [place] [address]. Final diagnosis performed at [facility], [address] [place] [address]. CLINICAL DATA: SPEC PLACED INTO CYTOLYT AT: [...] MD Reported Date/Time: 10/31/2016 12:37 Performed at [facility] [employer] [address] [place] [address] This report may include one or more immunohistochemistry stain results which use analyte-specific reagents. The interpretation of the above immunohistochemistry stain or stains is guided by published results in the medical literature, provided package information from the pre assembly wirer and by internal review of staining performance and assay validation within the Immunohistochemistry Department of [facility]. This testing has not been cleared or [...] controls. [facility] is a brand used by [employer] a subsidiary of [employer]. Please note, this documentation has been converted into the [employer]imotion EHR fromour [employer] EMR for informational purposes only. This documentationmust not be released or used for legal purposes as the note is missing theresponsible provider s signature. A copy of the legal medical record canbe obtained or printed only from the [employer] EMR. Russ Allred MD LAB BLOOD ORDERABLES documented in this encounter Visit Diagnoses Not on filedocumented in this encounter Additional Health Concerns Infection Onset Date Last Indicated Resolved Time COVID-19 Rule Out Comment:04/29/2020 Negative (PAT) 02/20/2020 COVID19 NEGATIVE (PAT) 02/23/2020 02/23/2020 02/23/2020 10:42 AM EDT documented as of this encounter Care Teams Distance Learning Coordinator Relationship Specialty Start Date End Date Joe Mensah MD [address] [place] [address] PCP - General Internal Medicine 11/17/18 [place] [address] [place] [address] Referring Physician Internal Medicine 11/17/18 Wan Rodríguez [facility] [place] [address] 06/02/19 Rozina Petersen MD Gastroenterology 03/30/20 documented as of this encounter
--- OUTSIDE RECORDS SUMMARY | 2025-04-01 12:14 | XMS_ITS | Encounter Summary ---
Author Organization [facility] Address [address] [place] [address] Phone Care Team Providers Care Origination Specialist Name Role Phone Joe Delaney MD Primary Care Provider Twan Davis MD Unavailable [phone] Wan Rodríguez Unavailable [phone] Rozina Petersen MD Unavailable Reason for Visit * Reason Onset Date Comments Medication Refill 06/05/2023 Encounter Details Date Type Department Care Team Description 06/05/2023 Refill from [facility] Internal Medicine [address] [place] [phone] Joe Delaney MD [address] [place], [place] [phone] Essential hypertension; Paroxysmal atrial fibrillation Social History [...] Visit Internal Medicine Joe Delaney MD [address] [place] [address] [phone] 08/03/2025 Office [place] [address] [place] [address] documented as of this encounter Visit Diagnoses Diagnosis Essential hypertension Unspecified essential hypertension Paroxysmal atrial fibrillation Atrial fibrillation documented in this encounter Care Teams Origination Specialist Relationship Specialty Start Date End Date Joe Delaney MD [address] [place] [address] PCP - General Internal Medicine 11/17/18 [place] [address] [place] [address] Referring Physician Internal Medicine 11/17/18 Wan Rodríguez [facility] [place] [address] 06/02/19 Rozina Petersen MD Gastroenterology 03/30/20 documented as of this encounter
--- OUTSIDE RECORDS SUMMARY | 2025-04-01 12:14 | XMS_ITS | Encounter Summary ---
Author Organization [facility] Address [address] [place] [address] Phone Care Team Providers Care Vacuum Metalizing Supervisor Name Role Phone Joe Delaney MD Primary Care Provider [phone] Twan Davis MD Unavailable [phone] Wan Rodríguez Unavailable [phone] Rozina Petersen MD Unavailable Encounter Details Date Type Department Care Team Description 12/20/2022 Email from [facility] Internal Medicine [address] [place] [phone] Joe Delaney MD [address] [place] [address] Social History Tobacco Use Types Packs/Day [...] Visit Internal Medicine Joe Delaney MD [address] [place] [address] 08/03/2025 Office Visit Pain Medicine Patricia Sotelo PA [address] [place], [place] [phone] documented as of this encounter Visit Diagnoses Not on filedocumented in this encounter Care Teams Vacuum Metalizing Supervisor Relationship Specialty Start Date End Date Joe Delaney MD [address] [place] [address] PCP - General Internal Medicine 11/17/18 [place] [address] [place] [address] Referring Physician Internal Medicine 11/17/18 Wan Rodríguez [facility] [place] [phone] 06/02/19 Rozina Petersen MD Gastroenterology 03/30/20 documented as of this encounter
--- OUTSIDE RECORDS SUMMARY | 2025-04-01 12:14 | XMS_ITS | Encounter Summary ---
Author Organization [facility] Address [address] [place] [address] Phone Care Team Providers Care Sole Dyer Name Role Phone Joe Delaney MD Primary Care Provider [phone] Twan Davis MD Unavailable [phone] Wan Rodríguez Unavailable [phone] Rozina Petersen MD Unavailable Encounter Details Date Type Department Care Team Description 08/16/2020 Email from [facility] [address] [place] [phone] Joe Delaney MD [address] [place] [address] [phone] Social History Tobacco Use Types Packs/Day Years [...] Office Visit [place] [address] [place] [address] [phone] 08/03/2025 Office Visit Pain Medicine Patricia Sotelo PA [address] [place], [place] [phone] documented as of this encounter Visit Diagnoses Not on filedocumented in this encounter Care Teams Sole Dyer Relationship Specialty Start Date End Date Joe Delaney MD [address] [place], [place] [phone] PCP - General Internal Medicine 11/17/18 Twan Davis MD [address] [place] [address] Referring Physician Internal Medicine 11/17/18 Wan Rodríguez [facility] [place] [address] 06/02/19 Rozina Petersen MD Gastroenterology 03/30/20 documented as of this encounter
--- OUTSIDE RECORDS SUMMARY | 2025-04-01 12:14 | XMS_ITS | Encounter Summary ---
Author Organization [facility] Address [address] [place] [address] Phone Care Team Providers Care Submarine Worker Name Role Phone Joe Delaney MD Primary Care Provider [phone] Twan Davis MD Unavailable [phone] Wan Rodríguez Unavailable [phone] Rozina Petersen MD Unavailable Encounter Details Date Type Department Care Team Description 04/25/2021 Email from [facility] Internal Medicine [address] [place] [phone] Joe Delaney MD [address] [place] [address] Social History Tobacco Use Types Packs/Day [...] Visit Internal Medicine Joe Delaney MD [address] [place] [address] 08/03/2025 Office Visit Pain Medicine Patricia Sotelo PA [address] [place], [place] [phone] documented as of this encounter Visit Diagnoses Not on filedocumented in this encounter Care Teams Submarine Worker Relationship Specialty Start Date End Date Joe Delaney MD [address] [place] [address] PCP - General Internal Medicine 11/17/18 [place] [address] [place] [address] Referring Physician Internal Medicine 11/17/18 Wan Rodríguez [facility] [place] [address] 06/02/19 Rozina Petersne MD Gastroenterology 03/30/20 documented as of this encounter
--- OUTSIDE RECORDS SUMMARY | 2025-04-01 12:14 | XMS_ITS | Encounter Summary ---
Author Organization [facility] Address [address] [place] [address] Phone Care Team Providers Care Inspector Optical Instrument Name Role Phone Joe Delaney MD Primary Care Provider [phone] Twan Davis MD Unavailable [phone] Wan Rodríguez Unavailable [phone] Rozina Petersen MD Unavailable Encounter Details Date Type Department Care Team Description 09/22/2019 Email from [facility] Otol[facility]ology [address] [place] [phone] Kyler Gr MD [address] [place], [place] [phone] Social History Tobacco Use Types Packs/Day Years [...] Visit Internal Medicine Joe Delaney MD [address] [place] [address] 08/03/2025 Office Visit Pain Medicine Patricia Sotelo PA [address] [place], [place] [phone] documented as of this encounter Visit Diagnoses Not on filedocumented in this encounter Additional Health Concerns Infection Onset Date Last Indicated Resolved Time COVID-19 Rule Out Comment:04/29/2020 Negative (PAT) 02/20/2020 COVID19 NEGATIVE (PAT) 02/23/2020 02/23/2020 02/23/2020 10:42 AM EDT documented as of this encounter Care Teams Inspector Optical Instrument Relationship Specialty Start Date End Date Joe Delaney MD [address] [place] [address] PCP - General Internal Medicine 11/17/18 [place] [address] [place] [address] Referring Physician Internal Medicine 11/17/18 Wan Rodríguez [facility] Vlad Katz [facility] [place] [address] 06/02/19 Rozina Petersen MD Gastroenterology 03/30/20 documented as of this encounter
--- OUTSIDE RECORDS SUMMARY | 2025-04-01 12:14 | XMS_ITS | Encounter Summary ---
Author Organization [facility] Address [address] [place] [address] Phone Care Team Providers Care Aligning Inspector Name Role Phone Joe Delaney MD Primary Care Provider [phone] Twan Davis MD Unavailable [phone] Wan Rodríguez Unavailable [phone] Rozina Petersen MD Unavailable Encounter Details Date Type Department Care Team Description 02/14/2021 Email from [facility] Orthopedics [address] [place] [phone] Kimberly Herndon PA [address] [place] [address] [phone] Social History Tobacco Use Types Packs/Day Years [...] Visit Internal Medicine Joe Delaney MD [address] [place], [place] [phone] 08/03/2025 Office Visit Pain Medicine Patricia Sotelo PA [address] [place], [place] [phone] documented as of this encounter Visit Diagnoses Not on filedocumented in this encounter Care Teams Aligning Inspector Relationship Specialty Start Date End Date Joe Delaney MD [address] [place] [address] PCP - General Internal Medicine 11/17/18 Twan Davis MD [address] [place] [address] Referring Physician Internal Medicine 11/17/18 Wan Rodríguez [facility] [place] [address] 06/02/19 Rozina Petersen MD Gastroenterology 03/30/20 documented as of this encounter
--- OUTSIDE RECORDS SUMMARY | 2025-04-01 12:14 | XMS_ITS | Encounter Summary ---
Author Organization [facility] Address [address] [place] [address] Phone Care Team Providers Care Social Media Designer Name Role Phone Joe Delaney MD Primary Care Provider [phone] Twan Davis MD Unavailable [phone] Wan Rodríguez Unavailable [phone] Rozina Petersen MD Unavailable Encounter Details Date Type Department Care Team Description 09/20/2016 Conversion Endocrinology [address] [place] [phone] Jayjay Allred MD [address] [place] [address] Social History Tobacco Use Types Packs/Day Years Used Date Smoking Tobacco: Never Assessed Sex Assigned at Date Recorded Male 03/28/2020 2:09 AM E DT Job Start Date Occupation Industry Not on file Not on file Not on file documented as of this encounter Consult Notes * Jayjay Allred MD - 09/20/2016 2:31 AM EST Department of Endocrinology and Metabolism Jayjay Allred MD, [facility] [place] [facility], [place], [place] History from: patient Reason for visit: [...] is now on anticoagulation using Xarelto. The [place] [employer] (DEREK) and the AmericanAssociation of [...] - no changes required): Tonsillectomy, childhood; . [place] teeth extracted;. Dental implants. . Prost bx. [...] Number of Children: 3. Place of : [place]. 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 Sleep History: 6-8 hrs;. Travel History: [place];. Tobacco use: never smoker. Passive smoke exposure: [...] (Moderate) Problems (including changes): ANEMIA, MICROCYTIC (ICD-281.9) (LOG10-J64.9) GOITER, MULTINODULAR (ICD-241.1) (HZK44-Q47.2) HEMORRHOIDS (ICD-455.6) (XEH40-X26.9) KEY'S ESOPHAGUS (ICD-530.85) (YOU42-W87.70) THYROID NODULES (ICD-241.0) (COA94-Z45.1) ANXIETY (ICD-300.00) (QXP84-Y56.9) AURAS (ICD-346.50) (FKI66-N82.109) TIA (ICD-435.9) (GKW69-Y16.9) ATRIAL FIBRILLATION, PAROXYSMAL (ICD-427.31) (AWX24-U52.0) LUMBAGO (ICD-724.2) (RIL40-Z14.5) HX OF BEE STING ALLERGY (ICD-V15.06) (TDB52-Z47.030) ESSENTIAL HYPERTENSION (ICD-401.9) (CNT06-B23) OSTEOARTHRITIS, KNEE, RIGHT (ICD-715.96) (XQM07-F37.9) INGROWING NAIL (ICD-703.0) (NCU92-G34.0) KNEE PAIN, RIGHT (ICD-719.46) (OIL09-Q94.561) ? ofADENOCARCINOMA, PROSTATE (ICD-185) (XJR86-H72) Sx of DEGENERATIVE JOINT DISEASE, KNEE (ICD-715.96) (RSB25-O71.9) BENIGN PROSTATIC HYPERPLASIA (ICD-600.00) (XTJ60-Z03.0) PSA, INCREASED (ICD-790.93) (RBX03-V94.2) SCREENING FOR UNSPECIFIED CONDITION (ICD-V82.9) (MMS74-S60.9) SCREENING FOR LIPOID DISORDERS (ICD-V77.91) (YXI45-X83.220) POSTNASAL DRIP (ICD-784.91) (UVN09-G60.82) GERD (ICD-530.81) (YMI88-L12.9) Problem Assessments: Medications (including changes): LOSARTAN POTASSIUM [...] contact me at any time. Orders: SNOMED-CT: [id number] Patient Encounter for Meaningful Use [[id number]] [id number] - Comprehensive with high complexity [[id number]] cc: Joe Delaney MD Prescriptions: LIDOCAINE-PRILOCAINE 2.5-2.5 % CREA (LIDOCAINE-PRILOCAINE) Apply to area of thyroid at least 1 hourprior to procedure. #1 x 0 Entered and Authorized by: Jayjay Allred MD Signed by: Jayjay Allred MD on 09/20/2016 Method used: Electronically to [facility] [phone]* (retail) [address] [place] [address] Ph: [phone] or [phone] Fax: [phone] RxID: Injections Please note, this documentation has been converted into the [employer] EHR from our [employer] EMR forinformational purposes only. This documentation must not be released or used for legal purposes as the note is missing the responsible provider???s signature. A copy of the legal medical record can be obtained or printed only from the [employer] EMR. documented in this encounter Plan of Treatment Upcoming Encounters Date Type Specialty Care Team Description 05/25/2025 Office Visit Internal Medicine Joe Delaney MD [address] [place] [address] [phone] 08/03/2025 Office Visit Pain Medicine Patricia Sotelo PA [address] [place], [place] [phone] documented as of this encounter Visit Diagnoses Not on filedocumented in this encounter Additional Health Concerns Infection Onset Date Last Indicated Resolved Time COVID-19 Rule Out Comment:04/29/2020 Negative (PAT) 02/20/2020 COVID19 NEGATIVE (PAT) 02/23/2020 02/23/2020 02/23/2020 10:42 AM EDT documented as of this encounter Care Teams Social Media Designer Relationship Specialty Start Date End Date Joe Delaney MD [address] [place] [address] PCP - General Internal Medicine 11/17/18 [place] [address] [place] [address] Referring Physician Internal Medicine 11/17/18 Wan Rodríguez [facility] [place] [address] 06/02/19 Rozina Petersen MD Gastroenterology 03/30/20 documented as of this encounter
--- OUTSIDE RECORDS SUMMARY | 2025-04-01 12:15 | XMS_ITS | Encounter Summary ---
Author Organization [facility] Address [address] [place] [address] Phone Care Team Providers Care Travel Accommodation Inspector Name Role Phone Joe Delaney MD Primary Care Provider [phone] Twan Davis MD Unavailable [phone] Wan Rodríguez Unavailable [phone] Rozina Petersen MD Unavailable Encounter Details Date Type Department Care Team Description 01/08/2018 Conversion Orthopedics [address] [place] [phone] Eleanor Mcfarland PA [address] [place] [address] Social History Tobacco Use Types Packs/Day Years [...] up to 4) KNEE PAIN, RIGHT (ICD-719.46) (KIZ55-I29.561), PRIMARY LOCALIZED OSTEOARTHRITIS OF RIGHT KNEE (ICD-715.16) (MID65-F42.11) Please note, this documentation has been converted into the Revl EHR from our [employer] EMR forinformational purposes only. This documentation must not be released or used for legal purposes as the note is missing the responsible provider???s signature. A copy of the legal medical record can be obtained or printed only from the [employer] EMR. Injections Dx for orders: PRIMARY LOCALIZED OSTEOARTHRITIS OF RIGHT KNEE (PPH21-Q17.11) Other Medication: Gel-One Done Dosage given: 3mL Amount wasted: 0 Injection given by: CHANDRA Irizarry Medication provided by: floor-stock Medication Mfr: Kaylee Injection Rte: intra-articular Medication Lot: [id number] [facility] number: [id number] Exp Date: 10.09.2018 Site: right knee Please note, this documentation has been converted into the Revl EHR from our [employer] EMR forinformational purposes only. This documentation must not be released or used for legal purposes as the note is missing the responsible provider???s signature. A copy of the legal medical record can be obtained or printed only from the [employer] EMR. documented in this encounter Plan of Treatment Upcoming Encounters Date Type Specialty Care Team Description 05/25/2025 Office Visit Internal Medicine Joe Delaney MD [facility] [place] [address] 08/03/2025 Office Visit Pain Medicine Patricia Sotelo PA [address] [place] [address] documented as of this encounter Visit Diagnoses Not on filedocumented in this encounter Additional Health Concerns Infection Onset Date Last Indicated Resolved Time COVID-19 Rule Out Comment:04/29/2020 Negative (PAT) 02/20/2020 COVID19 NEGATIVE (PAT) 02/23/2020 02/23/2020 02/23/2020 10:42 AM EDT documented as of this encounter Care Teams Travel Accommodation Inspector Relationship Specialty Start Date End Date Joe Delaney MD [address] [place], [place] [id number] PCP - General Internal Medicine 11/17/18 Twan Davis MD [address] [place] [address] Referring Physician Internal Medicine 11/17/18 Wan Rodríguez [facility] [place] [id number] 06/02/19 Rozina Petersen MD Gastroenterology 03/30/20 documented as of this encounter
--- OUTSIDE RECORDS SUMMARY | 2025-04-01 12:15 | XMS_ITS | Encounter Summary ---
Author Organization [facility] Address [address] [place] [address] Phone Care Team Providers Care Educator Senior Clinical Name Role Phone Joe Delaney MD Primary Care Provider Twan Davis MD Unavailable [phone] Wan Rodríguez Unavailable [phone] Rozina Petersen MD Unavailable Encounter Details Date Type Department Care Team Description 05/20/2018 Conversion Internal Medicine [address] [place] [phone] Joe Delaney MD [address] [place] [address] Social History Tobacco Use Types Packs/Day [...] 10 hrs approx. Goes to Urologist at [place], states PSA is down to 4.7. Seen few mo ago. We haven't rec'dnotes from [place], I informed pt. Knees are about same, [...] Number of Children: 3.. Place of : [place].. 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 Sleep History: 6-8 hrs;. Travel History: [place];. Tobacco use: never smoker. Passive smoke exposure: [...] visit) - verified by patient or patient ambulatory services representative LOSARTAN POTASSIUM 100 MG ORAL [...] counseling at this time New Orders: SNOMED-CT: [id number] Patient Encounter for Meaningful Use [[id number]] Lipid Panel with reflex DLDL if indicated 689361 [77643] CBC,manual diff if indicated 851015 [12805] Comprehensive Metabolic Profile 317241 [28134] Disposition: return to clinic in 6 mo, lab Flu Vax: refused Prevnar 13: Done Prevnar 13 by: Emili Curtis LPN Prevnar 13 provided by: [facility] Prevnar 13 Mfr: Guillermo Prevnar 13 Trade Name: Prevnar 13 Prevnar 13 Rte: intramuscular Prevnar 13 Lot: [id number] Prevnar 13 [facility] number: [id number] Prevnar 13 Exp: 11/22 Prevnar 13 Site: [...] this documentation has been converted into the [employer] EHR from our [employer] EMR forinformational purposes only. This documentation must not be released or used for legal purposes as the note is missing the responsible provider???s signature. A copy of the legal medical record can be obtained or printed only from the [employer] EMR. documented in this encounter Plan of Treatment Upcoming Encounters Date Type Specialty Care Team Description 05/25/2025 Office Visit Internal Medicine Joe Delaney MD [address] [place] [phone] 08/03/2025 Office Visit [place] [address] [place] [address] documented as of this encounter Visit Diagnoses Not on filedocumented in this encounter Additional Health Concerns Infection Onset Date Last Indicated Resolved Time COVID-19 Rule Out Comment:04/29/2020 Negative (PAT) 02/20/2020 COVID19 NEGATIVE (PAT) 02/23/2020 02/23/2020 02/23/2020 10:42 AM EDT documented as of this encounter Care Teams Educator Senior Clinical Relationship Specialty Start Date End Date Joe Delaney MD [address] [place] [address] [id number] PCP - General Internal Medicine 11/17/18 Twan Davis MD [address] [place] [address] Referring Physician Internal Medicine 11/17/18 Wan Rodríguez [facility] Vlad Katz [facility] [place] [address] 06/02/19 Rozina Petersen MD Gastroenterology 03/30/20 documented as of this encounter
--- OUTSIDE RECORDS SUMMARY | 2025-04-01 12:15 | XMS_ITS | Encounter Summary ---
Author Organization [facility] Address [address] [place] [address] Phone Care Team Providers Care Fish Skinning Machine Feeder Name Role Phone Jeo Delaney MD Primary Care Provider [phone] Twan Davis MD Unavailable [phone] Wan Rodríguez Unavailable [phone] Rozina Petersen MD Unavailable Encounter Details Date Type Department Care Team Description 04/23/2018 Conversion Orthopedics [address] [place] [address] Eleanor Mcfarland PA [address] [place] [address] Social History Tobacco Use Types Packs/Day Years [...] up to 4) KNEE PAIN, RIGHT (ICD-719.46) ([id number]), PRIMARY LOCALIZED OSTEOARTHRITIS OF RIGHT KNEE (ICD-715.16) (STG32-A40.11) Please note, this documentation has been converted into the [employer] EHR from our [employer] EMR forinformational purposes only. This documentation must not be released or used for legal purposes as the note is missing the responsible provider???s signature. A copy of the legal medical record can be obtained or printed only from the [employer] EMR. documented in this encounter Plan of Treatment Upcoming Encounters Date Type Specialty Care Team Description 05/25/2025 Office Visit Internal Medicine Joe Delaney MD [address] [place] [address] 08/03/2025 Office Visit Pain Medicine Patricia Sotelo PA [address] [place] [address] documented as of this encounter Visit Diagnoses Not on filedocumented in this encounter Additional Health Concerns Infection Onset Date Last Indicated Resolved Time COVID-19 Rule Out Comment:04/29/2020 Negative (PAT) 02/20/2020 COVID19 NEGATIVE (PAT) 02/23/2020 02/23/2020 02/23/2020 10:42 AM EDT documented as of this encounter Care Teams Fish Skinning Machine Feeder Relationship Specialty Start Date End Date Joe Delaney MD [address] [place] [address] PCP - General Internal Medicine 11/17/18 Twan Davis MD [address] [place] [address] Referring Physician Internal Medicine 11/17/18 Wan Rodríguez [facility] Vlad Katz [facility] [place] [address] 06/02/19 Rozina Petersen MD Gastroenterology 03/30/20 documented as of this encounter
--- OUTSIDE RECORDS SUMMARY | 2025-04-01 12:15 | XMS_ITS | Encounter Summary ---
Author Organization [facility] Address [address] [place] [address] Phone Care Team Providers Care Foreign Language Stenographer Name Role Phone Joe Mensah MD Primary Care Provider Twan Davis MD Unavailable [phone] Wan Rodríguez Unavailable [phone] Rozina Petersen MD Unavailable Encounter Details Date Type Department Care Team Description 10/03/2017 Conversion Orthopedics [address] [place] [phone] Eleanor Mcfarland PA [address] [place] [address] Social History Tobacco Use Types Packs/Day Years [...] , Father is , at age 83, [place] [...] social Drug use: never Employment: working Occupation: [employer] Work related injury? no Review of Systems: [...] Signed New Problems: NUMBNESS OF TOE (ICD-782.0) (RYD66-G06.0) -- Plan: - Patient describes numbness in [...] any questions or concerns. New Orders: SNOMED-CT: [id number] Patient Encounter for Meaningful Use [[id number]] Fred was given his 3rd Cortisone injection [...] this documentation has been converted into the [employer] EHR from our [employer] EMR forinformational purposes only. This documentation must not be released or used for legal purposes as the note is missing the responsible provider???s signature. A copy of the legal medical record can be obtained or printed only from the [employer] EMR. Injections Injections Dx for orders: PRIMARY LOCALIZED OSTEOARTHRITIS OF RIGHT KNEE ([id number]) Kenalog dosage given: 1ml Kenalog strength: 40mg Kenalog wasted: 0 Kenalog given by: Funmi Armenta Kenalog Time given: 930 Kenalog Medication provided by: floor-stock Kenalog Mfr: bristol magaña Kenalog Rte: Intra-articular Kenalog Lot: [id number] Kenalog [place] number: [id number] Kenalog Exp Date: Kenalog Site: right knee Lidocaine dosage given: 2ml Lidocaine wasted: 0 Lidocaine given by: Funmi Armenta Lidocaine Time given: 930 Lidocaine Medication provided by: floor-stock Lidocaine Mfr: Hospira Lidocaine Rte: Intra-articular Lidocaine Lot: [id number] Lidocaine NDC number: [id number] Lidocaine Exp Date: 09.05.18 Lidocaine Site: right knee Marcaine dosage given: 2ml Marcaine wasted: 0 Marcaine given by: Funmi Armenta Marcaine Time given: 930 Marcaine Medication provided by: floor-stock Marcaine Mfr: Hospira Marcaine Rte: intra-articular Marcaine Lot: [id number] Marcaine NDC number: [id number] Marcaine Exp Date: 11.03.18 Marcaine Site: right knee Order Changes - Added new Service order of Kenalog 40 mg ([id number]) - Signed Please note, this documentation has been converted into the [employer] EHR from our [employer] EMR forinformational purposes only. This documentation must not be released or used for legal purposes as the note is missing the responsible provider???s signature. A copy of the legal medical record can be obtained or printed only from the [employer] EMR. documented in this encounter Plan of Treatment Upcoming Encounters Date Type Specialty Care Team Description 05/25/2025 Office Visit Internal Medicine Joe Mensah MD [address] [place], [place] [phone] 08/03/2025 Office Visit Pain Medicine Patricia Sotelo PA [address] [place] [address] documented as of this encounter Visit Diagnoses Not on filedocumented in this encounter Additional Health Concerns Infection Onset Date Last Indicated Resolved Time COVID-19 Rule Out Comment:04/29/2020 Negative (PAT) 02/20/2020 COVID19 NEGATIVE (PAT) 02/23/2020 02/23/2020 02/23/2020 10:42 AM EDT documented as of this encounter Care Teams Foreign Language Stenographer Relationship Specialty Start Date End Date Joe Mensah MD [address] [place], [place] [phone] PCP - General Internal Medicine 11/17/18 [place] [address] [place] [address] Referring Physician Internal Medicine 11/17/18 Wan Rodríguez [facility] [place] [address] 06/02/19 Rozina Petersen MD Gastroenterology 03/30/20 documented as of this encounter
--- OUTSIDE RECORDS SUMMARY | 2025-04-01 12:15 | XMS_ITS | Encounter Summary ---
Author Organization [facility] Address [address] [place] [address] Phone Care Team Providers Care Supervisor Nurse Name Role Phone Joe Delaney MD Primary Care Provider Twan Davis MD Unavailable [phone] Wan Rodríguez Unavailable Rozina Petersen MD Unavailable Encounter Details Date Type Department Care Team Description 08/12/2017 Conversion Internal Medicine [address] [place] [address] Joe Delaney MD [address] [place], [place] [phone] Social History Tobacco Use Types Packs/Day Years Used Date Smoking Tobacco: Never Assessed Sex Assigned at Date Recorded Male 03/28/2020 2:09 AM E DT Job Start Date Occupation Industry Not on file Not on file Not on file documented as of this encounter Plan of Treatment Upcoming Encounters Date Type Specialty Care Team Description 05/25/2025 Office Visit Internal Medicine Joe Delaney MD [address] [place], [place] [phone] 08/03/2025 Office Visit Pain Medicine Patricia Sotelo PA [address] [place] [address] documented as of this encounter Procedures Procedure [...] LAB BLOOD ORDERABLES FREQUENCY Performing Organization Address [facility] Co de Phone Number AP DIAZ [address] [place], [place] [phone] * Iron Panel (08/12/2017 1:02 PM EST) UIBC 294 155 - 355 ug/dl [facility] Iron 109 50 - 212 ug/dL [facility] Iron Saturation 27.0 24.0 - 37.0 % [facility] 08/12/2017 1:02 PM EST 08/12/2017 1:05 PM EST Narrative [facility] - 08/12/2017 1:47 PM EST Joe Delaney MD LAB BLOOD ORDERABLES Performing Organization Address [facility] Co de Phone Number AP DIAZ [address] [place], [place] [phone] * (ABNORMAL) Comprehensive metabolic panel (08/12/2017 1:02 [...] [facility] Comment:If patient is Radha n Russian multiply result by 1.212 Alb/Glob ratio 1.9(H) 1.2 - 1.8 [facility] Globulin 2.3 1.6 - 3.9 g/dL [facility] 08/12/2017 1:02 PM EST 08/12/2017 1:05 PM EST Narrative [facility] - 08/12/2017 1:47 PM EST Joe Delaney MD LAB BLOOD ORDERABLES PA DIAZ [address] [place], [place] [phone] documented in this encounter Visit Diagnoses Not on filedocumented in this encounter Additional Health Concerns Infection Onset Date Last Indicated Resolved Time COVID-19 Rule Out Comment:04/29/2020 Negative (PAT) 02/20/2020 COVID19 NEGATIVE (PAT) 02/23/2020 02/23/2020 02/23/2020 10:42 AM EDT documented as of this encounter Care Teams Supervisor Nurse Relationship Specialty Start Date End Date Joe Delaney MD [address] [place] [address] PCP - General Internal Medicine 11/17/18 Twan Davis MD [address] [place] [address] Referring Physician Internal Medicine 11/17/18 Wan Rodríguez [facility] [place] [address] 06/02/19 Rozina Petersen MD Gastroenterology 03/30/20 documented as of this encounter
--- OUTSIDE RECORDS SUMMARY | 2025-04-01 12:15 | XMS_ITS | Encounter Summary ---
Author Organization [facility] Address [address] [place] [address] Phone Care Team Providers Care Lab Intern Name Role Phone Joe Delaney MD Primary Care Provider [phone] Twan Davis MD Unavailable [phone] Wan Rodríguez Unavailable [phone] Rozina Petersen MD Unavailable Encounter Details Date Type Department Care Team Description 05/14/2017 Conversion Endocrinology [address] [place] [address] Jayjay Allred MD [address] [place], [place] [phone] Social History Tobacco Use Types Packs/Day Years Used Date Smoking Tobacco: Never Assessed Sex Assigned at Date Recorded Male 03/28/2020 2:09 AM E DT Job Start Date Occupation Industry Not on file Not on file Not on file documented as of this encounter Plan of Treatment Upcoming Encounters Date Type Specialty Care Team Description 05/25/2025 Office Visit Internal Medicine Joe Delaney MD [address] [place] [address] 08/03/2025 Office Visit Pain Medicine Patricia Sotelo PA [address] [place] [address] documented as of this encounter Procedures Procedure [...] PM EDT Testing performed at: [] [facility] [address], [address], , Health Editor: Carter Norton MD Jayjay Allred MD LAB BLOOD ORDERABLES [facility] * Calcitonin (05/14/2017 1:35 PM EDT) Calcitonin 7.0 0.0 - 8.4 pg/mL [facility] Comment: DPC Immulite 2000 ICMA methodology. Values obtained with different assay methods or kits cannot be used interchangeably. 05/14/2017 1:35 PM EDT 05/14/2017 1:38 PM EDT Narrative [facility] - 05/16/2017 3:34 PM EDT Testing performed at: [BN] [facility] [address], [address], , Health Editor: Carter Norton MD Jayjay Allred MD LAB BLOOD ORDERABLES [facility] documented in this encounter Visit Diagnoses Not on filedocumented in this encounter Additional Health Concerns Infection Onset Date Last Indicated Resolved Time COVID-19 Rule Out Comment:04/29/2020 Negative (PAT) 02/20/2020 COVID19 NEGATIVE (PAT) 02/23/2020 02/23/2020 02/23/2020 10:42 AM EDT documented as of this encounter Care Teams Lab Intern Relationship Specialty Start Date End Date Joe Delaney MD [address] [place] [address] PCP - General Internal Medicine 11/17/18 [place] [address] [place] [address] Referring Physician Internal Medicine 11/17/18 Wan Rodríguez [facility] [place] [address] 06/02/19 Rozina Petersen MD Gastroenterology 03/30/20 documented as of this encounter
--- OUTSIDE RECORDS SUMMARY | 2025-04-01 12:15 | XMS_ITS | Encounter Summary ---
Author Organization [facility] Address [address] [place] [address] Phone Care Team Providers Care Put In Beat Adjuster Name Role Phone Joe Delaney MD Primary Care Provider [phone] Twan Davis MD Unavailable [phone] Wan Rodríguez Unavailable [phone] Rozina Petersen MD Unavailable Encounter Details Date Type Department Care Team Description 04/30/2017 Conversion Internal Medicine [address] [place] [address] Joe Delaney MD [address] [place], [place] [phone] Social History Tobacco Use Types Packs/Day Years Used Date Smoking Tobacco: Never Assessed Sex Assigned at Date Recorded Male 03/28/2020 2:09 AM E DT Job Start Date Occupation Industry Not on file Not on file Not on file documented as of this encounter Plan of Treatment Upcoming Encounters Date Type Specialty Care Team Description 05/25/2025 Office Visit Internal Medicine Joe Delaney MD [address] [place], [place] [phone] 08/03/2025 Office Visit Pain Medicine Patricia Sotelo PA [address] [place] [address] documented as of this encounter Procedures Procedure Name Priority Date/Time Associated Diagnosis Comments PSA, TOTAL AND FREE Routine 04/30/2017 1 1:55 AM EDT documented in this encounter Results * (ABNORMAL) PSA, total and free (04/30/2017 11:55 AM EDT) PSA 4.7(H) 0.0 - 4.0 ng/mL [facility] Comment: Ailyn ECLIA methodology. According to the [place] [employer], Serum PSA should decrease and [...] age (Scar et al, PILAR 1998, 279:1542). % Free PSA 50-64 yr 65-75 yr 0.00-10.00% 56% 55% 10.01-15.00% 24% 35% 15.01-20.00% 17% 23% 20.01-25.00% 10% 20% >25.00% 5% 9% Please note: Scar et al did not make specific recommendations regarding the use of percent free PSA for any other population of men. 04/30/2017 11:5 5 AM EDT 04/30/2017 12:13 PM EDT Narrative [facility] - 05/01/2017 4:15 AM EDT Testing performed at: [RN] [facility] [place], [address] [place] [address], [phone], , Director Of Home Health Services: Lynn Dukes MD Joe Delaney MD LAB BLOOD ORDERABLES [facility] documented in this encounter Visit Diagnoses Not on filedocumented in this encounter Additional Health Concerns Infection Onset Date Last Indicated Resolved Time COVID-19 Rule Out Comment:04/29/2020 Negative (PAT) 02/20/2020 COVID19 NEGATIVE (PAT) 02/23/2020 02/23/2020 02/23/2020 10:42 AM EDT documented as of this encounter Care Teams Put In Beat Adjuster Relationship Specialty Start Date End Date Joe Delaney MD [address] [place] [address] PCP - General Internal Medicine 11/17/18 Twan Davis MD [address] [place] [address] Referring Physician Internal Medicine 11/17/18 Wan Rodríguez [facility] Vlad Katz [facility] [place] [address] 06/02/19 Rozina Petersen MD Gastroenterology 03/30/20 documented as of this encounter
--- OUTSIDE RECORDS SUMMARY | 2025-04-01 12:15 | XMS_ITS | Encounter Summary ---
Author Organization [facility] Address [address] [place] [address] Phone Care Team Providers Care Cream Maker Name Role Phone Joe Delaney MD Primary Care Provider [phone] Twan Davis MD Unavailable [phone] Wan Rodríguez Unavailable [phone] Rozina Petersen MD Unavailable Encounter Details Date Type Department Care Team Description 06/18/2024 Email from [employer] [facility] [address] [place] [phone] Jamison Castano MD [address] [place], [place] [phone] Social History Tobacco Use Types Packs/Day Years [...] Visit Internal Medicine Joe Delaney MD [address] [place], [place] [phone] 08/03/2025 Office Visit Pain Medicine Patricia Sotelo PA [address] [place], [place] 1902313 documented as of this encounter Visit Diagnoses Not on filedocumented in this encounter Care Teams Cream Maker Relationship Specialty Start Date End Date Joe Delaney MD [address] [place], [place] [phone] PCP - General Internal Medicine 11/17/18 Twan Davis MD [address] [place] [address] Referring Physician Internal Medicine 11/17/18 Wan Rodríguez [facility] Vlad Katz [facility] [place] [address] 06/02/19 Rozina Petersen MD Gastroenterology 03/30/20 documented as of this encounter
--- OUTSIDE RECORDS SUMMARY | 2025-04-01 12:15 | XMS_ITS | Encounter Summary ---
Author Organization [facility] Address [address] [place] [address] Phone Care Team Providers Care Payroll Technician Name Role Phone Joe Delaney MD Primary Care Provider [phone] Twan Davis MD Unavailable [phone] Wan Rodríguez Unavailable [phone] Rozina Petersen MD Unavailable Encounter Details Date Type Department Care Team Description 09/18/2021 Email from [facility] Internal Medicine [address] [place] [phone] Joe Delaney MD [address] [place] [address] Social History Tobacco Use Types Packs/Day [...] Visit Internal Medicine Joe Delaney MD [address] [place] [address] 08/03/2025 Office Visit Pain Medicine Patricia Sotelo PA [address] [place] [address] documented as of this encounter Visit Diagnoses Not on filedocumented in this encounter Care Teams Payroll Technician Relationship Specialty Start Date End Date Joe Delaney MD [address] [place] [address] PCP - General Internal Medicine 11/17/18 [place] [address] [place] [address] Referring Physician Internal Medicine 11/17/18 Wan Rodríguez [facility] [place] [address] 06/02/19 Rozina Petersen MD Gastroenterology 03/30/20 documented as of this encounter
--- OUTSIDE RECORDS SUMMARY | 2025-04-01 12:15 | XMS_ITS | Encounter Summary ---
Author Organization [facility] Address [address] [place] [address] Phone Care Team Providers Care Overhead Worker Name Role Phone Joe Delaney MD Primary Care Provider [phone] Twan Davis MD Unavailable [phone] Wan Rodríguez Unavailable [phone] Rozina Petersen MD Unavailable Encounter Details Date Type Department Care Team Description 03/03/2018 Conversion Orthopedics [address] [place] [phone] Eleanor Mcfarland PA [address] [place] [address] Social History Tobacco Use Types Packs/Day Years [...] records from previous ortho seen ? at [place]. - He would like to try orthoflo injection and schedule in 3-4 weeks if able. We will order and callpatient when available. Billing Diagnosis (choose up to 4) KNEE PAIN, RIGHT (ICD-719.46) ([id number]), PRIMARY LOCALIZED OSTEOARTHRITIS OF RIGHT KNEE (ICD-715.16) (OSS40-Q12.11) Please note, this documentation has been converted into the Hashdoc EHR from our [employer] EMR forinformational purposes only. This documentation must not be released or used for legal purposes as the note is missing the responsible provider???s signature. A copy of the legal medical record can be obtained or printed only from the [employer] EMR. Injections Injections Dx for orders: KNEE PAIN; RIGHT ([id number]) Kenalog dosage given: 1 ml Kenalog strength: 40 mg/ml Kenalog wasted: 0 Kenalog given by: Bartolo BUCIO; Funmi Kenalog Medication provided by: [facility] Kenalog Mfr: bristol magaña Kenalog Rte: Intra-articular Kenalog Lot: [id number] Kenalog [facility] number: [id number] Kenalog Exp Date: Kenalog Site: right knee Lidocaine dosage given: 2 ml Lidocaine wasted: 0 Lidocaine given by: Bartolo BUCIO; Funmi Lidocaine Medication provided by: [facility] Lidocaine Mfr: fresenius Lidocaine Rte: Intra-articular Lidocaine Lot: [id number] Lidocaine [facility] number: [id number] Lidocaine Exp Date: Lidocaine Site: right knee Dx for orders: KNEE PAIN; RIGHT ([id number]) Marcaine dosage given: 2 ml Marcaine wasted: 0 Marcaine given by: Bartolo BUCIO; Funmi Marcaine Medication provided by: [facility] Rte: intra-articular Marcaine Lot: [id number] Marcaine [facility] number: [id number] Marcaine Exp Date: Marcaine Site: right knee Clinical Action Note Order Changes - Added new Service order of Kenalog 40 mg ([id number]) - Signed Please note, this documentation has been converted into the Epic EHR from our [employer] EMR forinformational purposes only. This documentation must not be released or used for legal purposes as the note is missing the responsible provider???s signature. A copy of the legal medical record can be obtained or printed only from the [employer] EMR. Called pt and informed him of [...] converted into the Epic EHR from our [employer] EMR forinformational purposes only. This documentation must not be released or used for legal purposes as the note is missing the responsible provider???s signature. A copy of the legal medical record can be obtained or printed only from the [employer] EMR. please generate an order for above injection and send to nicolás in pharmacy. Please note, this documentation has been converted into the Epic EHR from our [employer] EMR forinformational purposes only. This documentation must not be released or used for legal purposes as the note is missing the responsible provider???s signature. A copy of the legal medical record can be obtained or printed only from the [employer] EMR. documented in this encounter Plan of Treatment Upcoming Encounters Date Type Specialty Care Team Description 05/25/2025 Office Visit Internal Medicine Joe Delaney MD [address] [place] [address] 08/03/2025 Office Visit Pain Medicine Patricia Sotelo PA [address] [place] [address] documented as of this encounter Visit Diagnoses Not on filedocumented in this encounter Additional Health Concerns Infection Onset Date Last Indicated Resolved Time COVID-19 Rule Out Comment:04/29/2020 Negative (PAT) 02/20/2020 COVID19 NEGATIVE (PAT) 02/23/2020 02/23/2020 02/23/2020 10:42 AM EDT documented as of this encounter Care Teams Overhead Worker Relationship Specialty Start Date End Date Joe Delaney MD [address] [place], [place] [phone] PCP - General Internal Medicine 11/17/18 [place] [address] [place] [address] Referring Physician Internal Medicine 11/17/18 Wan Rod[facility]guez [facility] [place] [address] 06/02/19 Rozina Petersen MD Gastroenterology 03/30/20 documented as of this encounter
--- OUTSIDE RECORDS SUMMARY | 2025-04-01 12:15 | XMS_ITS | Encounter Summary ---
Author Organization [facility] Address [address] [place] [address] Phone Care Team Providers Care Vice President Research Name Role Phone Joe Delaney MD Primary Care Provider [phone] Twan Davis MD Unavailable [phone] Wan Rodríguez Unavailable [phone] Rozina Petersen MD Unavailable Encounter Details Date Type Department Care Team Description 11/12/2021 Email from [facility] [address] [place] [phone] Joe Delaney MD [address] [place] [address] [phone] Social History Tobacco Use Types Packs/Day Years [...] Visit Internal Medicine Joe Delaney MD [address] [place], [place] [phone] 08/03/2025 Office Visit Pain Medicine Patricia Sotelo PA [address] [place], [place] [phone] documented as of this encounter Visit Diagnoses Not on filedocumented in this encounter Care Teams Vice President Research Relationship Specialty Start Date End Date Joe Delaney MD [address] [place], [place] [phone] PCP - General Internal Medicine 11/17/18 Twan Davis MD [address] [place] [address] Referring Physician Internal Medicine 11/17/18 Wan Rod[facility]guez [facility] [place] [address] 06/02/19 Rozina Petersen MD Gastroenterology 03/30/20 documented as of this encounter
--- OUTSIDE RECORDS SUMMARY | 2025-04-01 12:15 | XMS_ITS | Encounter Summary ---
Author Organization [facility] Address [address] [place] [address] Phone Care Team Providers Care Displayer Merchandise Name Role Phone Joe Delaney MD Primary Care Provider [phone] Twan Davis MD Unavailable [phone] Wan Rodríguez Unavailable [phone] Rozina Petersen MD Unavailable Encounter Details Date Type Department Care Team Description 09/19/2017 Conversion Internal Medicine [address] [place] [phone] Joe Delaney MD [address] [place], [place] [phone] Social History Tobacco Use Types Packs/Day Years [...] implants. . Prost bx. 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 Tobacco use: never smoker. 2 cats (for 2 years), a dog. . Medications: (prior to this visit) - verified by patient or patient merchandiser retail representative LOSARTAN POTASSIUM 100 MG ORAL TABLET [...] Added/Changed/Removed: Added new problem of FEVER (ICD-780.60) (GBJ87-U43.9) - Signed Added new problem of OTITIS MEDIA (ICD-382.9) (LCW42-D33.90) - Signed Assessed OTITIS MEDIA as new [...] MD on 09/19/2017 Method used: Electronically to [facility] [phone]* (retail) [address] [place] [address] Ph: [phone] or [phone] Fax: [phone] RxID: [id number] AUGMENTIN 500-125 MG ORAL TABLET (AMOXICILLIN-POT CLAVULANATE) one tab po bid #14[Tablet] x 0 Entered and Authorized by: Joe Delaney MD Signed by: Joe Delaney MD on 09/19/2017 Method used: Electronically to [facility] [phone]* (retail) [address] [place] [address] Ph: [phone] or [phone] Fax: [phone] RxID: [id number] TAMIFLU 75 MG ORAL CAPSULE (OSELTAMIVIR PHOSPHATE) one capsule by mouth bid #10 x 0 Entered and Authorized by: Joe Delaney MD Signed by: Joe Delaney MD on 09/19/2017 Method used: [facility] [phone]* (retail) [address] [place] [address] Ph: [phone] or [phone] Fax: [phone] RxID: [id number] Injections Medication List Reviewed Please note, this documentation has been converted into the Epic EHR from our [employer] EMR forinformational purposes only. This documentation must not be released or used for legal purposes as the note is missing the responsible provider???s signature. A copy of the legal medical record can be obtained or printed only from the [employer] EMR. Notify F/u Flu test came back + for Flu A Already treated. Finish meds See me if not improved. Please note, this documentation has been converted into the Epic EHR from our [employer] EMR forinformational purposes only. This documentation must not be released or used for legal purposes as the note is missing the responsible provider???s signature. A copy of the legal medical record can be obtained or printed only from the [employer] EMR. Patient aware of above results and instructions, verbalized understanding. patient already feels better. Please note, this documentation has been converted into the Epic EHR from our [employer] EMR forinformational purposes only. This documentation must not be released or used for legal purposes asthe note is missing the responsible provider???s signature. A copy of the legal medical record can be obtained or printed only from the [employer] EMR. * Joe Delaney MD - 09/19/2017 [...] converted into the Epic EHR from our [employer] EMR forinformational purposes only. This documentation must not be released or used for legal purposes as the note is missing the responsible provider???s signature. A copy of the legal medical record can be obtained or printed only from the [employer] EMR. documented in this encounter Plan of Treatment Upcoming Encounters Date Type Specialty Care Team Description 05/25/2025 Office Visit [place] [address] [place] [phone] 08/03/2025 Office Visit Pain Medicine Patricia Sotelo PA [address] [place] [address] documented as of this encounter Visit Diagnoses Not on filedocumented in this encounter Additional Health Concerns Infection Onset Date Last Indicated Resolved Time COVID-19 Rule Out Comment:04/29/2020 Negative (PAT) 02/20/2020 COVID19 NEGATIVE (PAT) 02/23/2020 02/23/2020 02/23/2020 10:42 AM EDT documented as of this encounter Care Teams Displayer Merchandise Relationship Specialty Start Date End Date Joe Delaney MD [address] [place] [address] PCP - General Internal Medicine 11/17/18 [place] [address] [place] [address] Referring Physician Internal Medicine 11/17/18 Wan Rodríguez [facility] [place] [address] 06/02/19 Rozina Petersen MD Gastroenterology 03/30/20 documented as of this encounter
--- OUTSIDE RECORDS SUMMARY | 2025-04-01 12:15 | XMS_ITS | Encounter Summary ---
Author Organization [facility] Address [address] [place] [address] Phone Care Team Providers Care Surface Ship Usw Supervisor Name Role Phone Joe Delaney MD Primary Care Provider [phone] Twan Davis MD Unavailable [phone] Wan Rodríguez Unavailable [phone] Rozina Petersen MD Unavailable Encounter Details Date Type Department Care Team Description 05/29/2024 Email from [email or web address] Internal Medicine [address] [place] [phone] Joe Delaney MD [address] [place] [address] [phone] Social History Tobacco Use Types Packs/Day Years [...] Visit Internal Medicine Joe Delaney MD [address] [place], [place] [phone] 08/03/2025 Office Visit Pain Medicine Patricia Sotelo PA [address] [place], [place] [phone] documented as of this encounter Visit Diagnoses Not on filedocumented in this encounter Care Teams Surface Ship Usw Supervisor Relationship Specialty Start Date End Date Joe Delaney MD [address] [place], [place] [phone] PCP - General Internal Medicine 11/17/18 Twan Davis MD [address] [place] [address] Referring Physician Internal Medicine 11/17/18 Wan Rodríguez [facility] [place] [address] 06/02/19 Rozina Petersen MD Gastroenterology 03/30/20 documented as of this encounter
--- OUTSIDE RECORDS SUMMARY | 2025-04-01 12:15 | XMS_ITS | Encounter Summary ---
Author Organization [facility] Address [address] [place] [address] Phone Care Team Providers Care Refrigeration Brazer/Solderer Name Role Phone Joe Delaney MD Primary Care Provider [phone] Twan Davis MD Unavailable [phone] Wan Rodríguez Unavailable [phone] Rozina Petersen MD Unavailable Encounter Details Date Type Department Care Team Description 08/19/2017 Conversion Internal Medicine [address] [place] [phone] Joe Delaney MD [address] [place], [place] [phone] Social History Tobacco Use Types Packs/Day Years [...] I feel great. Urologist is now in [place]. Pt states PSA is down to 4 [...] Number of Children: 3.. Place of : [place].. 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 Sleep History: 6-8 hrs;. Travel History: [place];. Tobacco use: never smoker. Passive smoke exposure: no. Alcohol use:yes. Alcohol use Frequency:social. Drug use: never. HIV high risk behavior: no. Caffeine use (drinks/day): 3. Exercise (times/week): 3. Seatbelt use (%): 100. 2 cats (for 2 years), a dog. . Fall Risk: Negative Medications: (prior to this visit) - verified by patient or patient underwriting account representative LOSARTAN POTASSIUM 100 MG ORAL TABLET [...] Plan Comments: Continue same. New Orders: SNOMED-CT: [id number] Patient Encounter for Meaningful Use [[id number]] Disposition: return to clinic in 9 mo Prescriptions: XARELTO 20 MG ORAL TABLET (RIVAROXABAN) one po qd #90 x 2 Entered and Authorized by: Joe Delaney MD Signed by: Joe Delaney MD on 08/19/2017 Method used: Electronically to [facility] [phone]* (retail) [address] [place] [address] Ph: [phone] or [phone] Fax: [phone] RxID: [id number] LOSARTAN POTASSIUM 100 MG ORAL TABLET (LOSARTAN POTASSIUM) one po qd #90 x 2 Entered and Authorized by: Joe Delaney MD Signed by: Joe Delaney MD on 08/19/2017 Method used: [facility] to [facility] [phone]* (retail) [address] [place] [address] Ph: [phone] Fax: [phone] RxID: [id number] Injections Next office visit 05/20/18 @ 9 am with dcg appt card handed to patient. End of visit instruction sheet handed to patient. Emili Curtis RACHEL August 19, 2017 10:03 AM Please note, this documentation has been converted into the Boomr EHR from our [employer]Path EMR forinformational purposes only. This documentation must not be released or used for legal purposes as the note is missing the responsible provider?s signature. A copy of the legal medical record can be obtained or printed only from the [employer]Path EMR. documented in this encounter Plan of Treatment Upcoming Encounters Date Type Specialty Care Team Description 05/25/2025 Office Visit Internal Medicine Joe Delaney MD [address] [place] [address] [phone] 08/03/2025 Office [place] [address] [place] [address] [phone] documented as of this encounter Visit Diagnoses Not on filedocumented in this encounter Additional Health Concerns Infection Onset Date Last Indicated Resolved Time COVID-19 Rule Out Comment:04/29/2020 Negative (PAT) 02/20/2020 COVID19 NEGATIVE (PAT) 02/23/2020 02/23/2020 02/23/2020 10:42 AM EDT documented as of this encounter Care Teams Refrigeration Brazer/Solderer Relationship Specialty Start Date End Date Joe Delaney MD [address] [place], [place] [phone] PCP - General Internal Medicine 11/17/18 Twan Davis MD [address] [place] [address] Referring Physician Internal Medicine 11/17/18 Wan Rodríguez [facility] [place] [place] [address] 06/02/19 Rozina Petersen MD Gastroenterology 03/30/20 documented as of this encounter
--- OUTSIDE RECORDS SUMMARY | 2025-04-01 12:15 | XMS_ITS | Encounter Summary ---
Author Organization [facility] Address [address] [place] [address] Phone Care Team Providers Care Facility Designer Name Role Phone Joe Delaney MD Primary Care Provider [phone] Twan Davis MD Unavailable [phone] Wan Rodríguez Unavailable [phone] Rozina Petersen MD Unavailable Encounter Details Date Type Department Care Team Description 06/09/2018 Conversion Endocrinology [address] [place] [phone] Jayjay Allred MD [address] [place] [address] Social History Tobacco Use Types Packs/Day Years [...] Endocrinology and Metabolism Jayjay Allred MD, [facility] [place], [place] Chief Complaint: 1 year with labs [...] colonpolyp. Father is , at age 83, AL suspected. Had high PSA but not Ca. 1 brother is alive and well. 1 sister is aliveand well. Social History: Marital Status: . . Number of Children: 3.. Place of : [place].. 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 Sleep History: 6-8 hrs;. Travel History: [place];. Tobacco use: never smoker. 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) (OFY45-W18.42) HYPOGONADISM (ICD-257.2) (ZXW60-E55.1) ATRIAL FIBRILLATION, PAROXYSMAL (ICD-427.31) (DCQ96-H32.0) PRIMARY LOCALIZED OSTEOARTHRITIS OF RIGHT KNEE (ICD-715.16) (IUG71-Y75.11) ANEMIA, MICROCYTIC (ICD-281.9) (LLU77-N71.9) GOITER, MULTINODULAR (ICD-241.1) (BHX88-O74.2) HEMORRHOIDS (ICD-455.6) (EGG09-D65.9) KEY'S ESOPHAGUS (ICD-530.85) (VFU15-P61.70) THYROID NODULES (ICD-241.0) (KJG16-T31.1) ANXIETY (ICD-300.00) (HPG86-L06.9) LUMBAGO (ICD-724.2) (TRS75-B67.5) HX OF BEE STING ALLERGY (ICD-V15.06) (INO40-A38.030) ESSENTIAL HYPERTENSION (ICD-401.9) (NCH58-Q20) Sx of DEGENERATIVE JOINT DISEASE, KNEE (ICD-715.96) (DMS93-V93.9) BENIGN PROSTATIC HYPERPLASIA (ICD-600.00) (ZDW94-A10.0) PSA, INCREASED (ICD-790.93) (DQL59-V20.2) SCREENING FOR LIPOID DISORDERS (ICD-V77.91) (YWQ39-O38.220) GERD (ICD-530.81) (QJB87-F64.9) KNEE PAIN, RIGHT (ICD-719.46) (HTM99-D15.561) HIP PAIN, LEFT (ICD-719.45) (EPX92-Z35.552) Problem Assessments: Medications (including changes): LOSARTAN POTASSIUM [...] they will be promptly addressed. Orders: SNOMED-CT: [id number] Patient Encounter for Meaningful Use [[id number]] Ultrasound Head & neck-soft tissues (eg. thyroid) [96079] [USSOFTISSU] 72080-Kcxvvrpwphw Patient - Detailed with Moderate Complexity [CPT-89218] T4, FREE [5015] TSH [5020] Testosterone, Total [5070] Magnesium [4145] 25 OH VITAMIN D [5001] Testosterone, Free [729082] cc: GOODMAN TIWARI,JOE Ortiz Injections labs and us now reminder for 1 yr Charlee Elena LPN June 09, 2018 3:52 PM pt was instructed to call after labs & us for results Please note, this documentation has been converted into the [employer] EHR from our [employer] EMR forinformational purposes only. This documentation must not be released or used for legal purposes as the note is missing the responsible provider???s signature. A copy of the legal medical record can be obtained or printed only from the [employer] EMR. documented in this encounter Plan of Treatment Upcoming Encounters Date Type Specialty Care Team Description 05/25/2025 Office Visit Internal Medicine Joe Delaney MD [address] [place] [address] 08/03/2025 Office Visit Pain Medicine Patricia Sotelo PA [address] [place], [place] [phone] documented as of this encounter Visit Diagnoses Not on filedocumented in this encounter Additional Health Concerns Infection Onset Date Last Indicated Resolved Time COVID-19 Rule Out Comment:04/29/2020 Negative (PAT) 02/20/2020 COVID19 NEGATIVE (PAT) 02/23/2020 02/23/2020 02/23/2020 10:42 AM EDT documented as of this encounter Care Teams Facility Designer Relationship Specialty Start Date End Date Joe Delaney MD [address] [place] [address] PCP - General Internal Medicine 11/17/18 Twan Davis MD [address] [place] [address] Referring Physician Internal Medicine 11/17/18 Wan Rod[facility]guez [facility] [place] [address] 06/02/19 Rozina Petersen MD Gastroenterology 03/30/20 documented as of this encounter
--- OUTSIDE RECORDS SUMMARY | 2025-04-01 12:15 | XMS_ITS | Encounter Summary ---
Author Organization [facility] Address [address] [place] [address] Phone Care Team Providers Care Investigator Cash Shortage Name Role Phone Joe Delaney MD Primary Care Provider [phone] Twan Davis MD Unavailable [phone] Wan Rodríguez Unavailable [phone] Rozina Petersen MD Unavailable Encounter Details Date Type Department Care Team Description 05/30/2018 Conversion Orthopedics [address] [place] [phone] Eleanor Mcfarland PA [address] [place] [address] Social History Tobacco Use Types Packs/Day Years [...] PRIMARY LOCALIZED OSTEOARTHRITIS OF RIGHT KNEE (ICD-715.16) (AQQ66-O03.11), KNEE PAIN, RIGHT (ICD-719.46) (SAM89-F99.561) Please note, this documentation has been converted into the [employer] EHR from our [employer] EMR forinformational purposes only. This documentation must not be released or used for legal purposes as the note is missing the responsible provider???s signature. A copy of the legal medical record can be obtained or printed only from the [employer] EMR. documented in this encounter Plan of Treatment Upcoming Encounters Date Type Specialty Care Team Description 05/25/2025 Office Visit Internal Medicine Joe Delaney MD [address] [place] [address] [phone] 08/03/2025 Office Visit Pain Medicine Patricia Sotelo PA [address] [place] [address] documented as of this encounter Visit Diagnoses Not on filedocumented in this encounter Additional Health Concerns Infection Onset Date Last Indicated Resolved Time COVID-19 Rule Out Comment:04/29/2020 Negative (PAT) 02/20/2020 COVID19 NEGATIVE (PAT) 02/23/2020 02/23/2020 02/23/2020 10:42 AM EDT documented as of this encounter Care Teams Investigator Cash Shortage Relationship Specialty Start Date End Date Joe Delaney MD [address] [place] [address] PCP - General Internal Medicine 11/17/18 Twan Davis MD [address] [place] [address] Referring Physician Internal Medicine 11/17/18 Wan Rod[facility]uez [facility] [address] 06/02/19 Rozina Petersen MD Gastroenterology 03/30/20 documented as of this encounter
--- OUTSIDE RECORDS SUMMARY | 2025-04-01 12:15 | XMS_ITS | Encounter Summary ---
Author Organization [facility] Address [address] [place] [address] Phone Care Team Providers Care Top Lift Scourer Name Role Phone Joe Mensah MD Primary Care Provider Twan Davis MD Unavailable [phone] Wna Rodríguez Unavailable Rozina Petersen MD Unavailable Encounter Details Date Type Department Care Team Description 11/01/2018 Conversion Internal Medicine [address] [place] [address] Joe Mensah MD [address] [place], [place] [phone] Social History Tobacco Use Types Packs/Day Years Used Date Smoking Tobacco: Never Assessed Sex Assigned at Date Recorded Male 03/28/2020 2:09 AM E DT Job Start Date Occupation Industry Not on file Not on file Not on file documented as of this encounter Plan of Treatment Upcoming Encounters Date Type Specialty Care Team Description 05/25/2025 Office Visit Internal Medicine Joe Mensah MD [address] [place], [place] [id number] 08/03/2025 Office Visit Pain Medicine Patricia Sotelo PA [address] [place] [address] documented as of this encounter Procedures Procedure [...] thyroid bed grossly unchanged Patient Name: DILIP SOLANO Exam Date: 05/07/2017 16:19:00 Requested By: JAYJAY ALLRED MD Transcribed By: LEROY VELEZ MD,RADIOLOGIST Signed By: LEROY VELEZ MD,RADIOLOGIST on 05/07/2017 16:36:00 Procedure Note Leroy Velez - 11/01/2018 ULTRASOUND EXAMINATION US THYROID Clinical [...] thyroid bed grossly unchanged Patient Name: DILIP SOLANO Exam Date: 05/07/2017 16:19:00 Requested By: JAYJAY ALLRED MD Transcribed By: LEROY VELEZ MD,RADIOLOGIST Signed By: LEROY VELEZ MD,RADIOLOGIST on 05/07/2017 16:36:00 Jayjay Allred MD [...] demonstrated. IMPRESSION Tricompartmental osteoarthritis. Patient Name: DILIP SOLANO Exam Date: 03/27/2017 14:40:00 Requested By: SEBASTIAN ARTIS, CHANDRA PARRISH Transcribed By: LUCIO EDUARDO MD Signed By: LUCIO EDUARDO MD on 03/27/2017 14:46:00 Procedure Note Lucio Eduardo MD - 11/01/2018 RADIOLOGIC EXAMINATION DX KNEE COMP RT 4 OR MORE V CLINICAL HISTORY: Osteoarthritis COMPARISON: December 20, 2014 FINDINGS: Four-views of the right knee are submitted. There is tricompartmental osteoarthritis greatest within the lateral and patellofemoral compartments. No fracture or joint effusion is demonstrated. IMPRESSION Tricompartmental osteoarthritis. Patient Name: DILIP SOLANO Exam Date: 03/27/2017 14:40:00 Requested By: SEBASTIAN [...] biopsy should be considered. Patient Name: DILIP SOLANO Exam Date: 06/26/2016 15:49:00 Requested By: JOE MENSAH MD Transcribed By: CHERYL SHEFFIELD MD Signed By: CHERYL SHEFFIELD MD on 06/26/2016 18:25:00 Procedure Note Cheryl Sheffield [...] biopsy should be considered. Patient Name: DILIP SOLANO Exam Date: 06/26/2016 15:49:00 Requested By: JOE MENSAH MD Transcribed By: CHERYL SHEFFIELD MD Signed By: CHERYL SHEFFIELD MD on 06/26/2016 18:25:00 Joe Mensah MD [facility] US ORDERABL ES documented in this encounter Visit Diagnoses Not on filedocumented in this encounter Additional Health Concerns Infection Onset Date Last Indicated Resolved Time COVID-19 Rule Out Comment:04/29/2020 Negative (PAT) 02/20/2020 COVID19 NEGATIVE (PAT) 02/23/2020 02/23/2020 02/23/2020 10:42 AM EDT documented as of this encounter Care Teams Top Lift Scourer Relationship Specialty Start Date End Date Joe Mensah MD [address] [place] [address] PCP - General Internal Medicine 11/17/18 [place] [address] [place] [address] Referring Physician Internal Medicine 11/17/18 Wan Rodríguez [facility] [place] [address] 06/02/19 Rozina Petersen MD Gastroenterology 03/30/20 documented as of this encounter
--- OUTSIDE RECORDS SUMMARY | 2025-04-01 12:15 | XMS_ITS | Encounter Summary ---
Author Organization [facility] Address [address] [place] [address] Phone Care Team Providers Care Scarifier Operator Name Role Phone Joe Delaney MD Primary Care Provider [phone] Twan Davis MD Unavailable [phone] Wan Rodríguez Unavailable [phone] Rozina Petersen MD Unavailable Reason for Referral * MRI/CAT/PET Scan (Routine) - Closed Specialty Diagnoses / Procedures Referred By Contac t Referred To Contact Radiology Diagnoses Chronic right-sided low back pain without sciatica Procedures MRI, Lumbar spine w contrast Jamison Castano MD [address] [place] [address] Referral ID Status Reason Start Date Expiration Date V isits Requested Visits Authorized [id number] Closed Specialty Services Required 08/20/2024 11/17/2024 1 1 Encounter Details Date Type Department Care Team Description 08/09/2024 Email from [facility] Physical Medicine and Rehabilitation [address] [place] [phone] Jamison Castano MD [employer] [place] [address] Chronic right-sided low back pain [...] Visit Internal Medicine Joe Delaney MD [address] [place], [place] [phone] 08/03/2025 Office [place] [address] [place] [address] [phone] Scheduled Orders Name Type Priority Associated Diagnoses Orde r Schedule MRI, Lumbar spine w contrast Imaging Routine Chronic right-sided low back pain without sciatica Expected: 08/14/2024, Expires: 11/12/2024 documented as of this encounter Visit Diagnoses Diagnosis Chronic right-sided low back pain without sciatica- Primary documented in this encounter Care Teams Scarifier Operator Relationship Specialty Start Date End Date Joe Delaney MD [address] [place], [place] [phone] PCP - General Internal Medicine 11/17/18 [place] [address] [place] [address] Referring Physician Internal Medicine 11/17/18 Wan Rodríguez [facility] Gianna [facility] [place] [address] 06/02/19 Rozina Petersen MD Gastroenterology 03/30/20 documented as of this encounter
--- OUTSIDE RECORDS SUMMARY | 2025-04-01 12:15 | XMS_ITS | Encounter Summary ---
Author Organization [facility] Address [address] [place] [address] Phone Care Team Providers Care Ear Specialist Name Role Phone Joe Delaney MD Primary Care Provider [phone] Twan Davis MD Unavailable Wan Rodríguez Unavailable [phone] Rozina Petersen MD Unavailable Encounter Details Date Type Department Care Team Description 05/01/2021 Email from [facility] Internal Medicine [address] [place] [phone] Joe Delaney MD [address] [place] [address] Social History Tobacco Use Types Packs/Day [...] Visit Internal Medicine Joe Delaney MD [address] [place] [address] 08/03/2025 Office Visit Pain Medicine Patricia Sotelo PA [address] [place], [place] [phone] documented as of this encounter Visit Diagnoses Not on filedocumented in this encounter Care Teams Ear Specialist Relationship Specialty Start Date End Date Joe Delaney MD [address] [place] [address] PCP - General Internal Medicine 11/17/18 [place] [address] [place] [address] Referring Physician Internal Medicine 11/17/18 Wan Rodríguez [facility] [place] [address] 06/02/19 Rozina Petersen MD Gastroenterology 03/30/20 documented as of this encounter
--- OUTSIDE RECORDS SUMMARY | 2025-04-01 12:15 | XMS_ITS | Clinical Summary ---
Author Organization [facility] Address [address] [place] [address] Care Team Providers Care Optical Goods Drilling Machine Operator Name Role Phone Joe Delaney MD Primary Care Provider [phone] Allergies Active Allergy Reactions Criticality Noted Date [...] 10/20/2024 8:12 AM EDT Plan of Treatment Health Maintenance Due Date Last Done Comments CT Colonography 1952 Cologuard 1952 Colonoscopy 1952 Colorectal Cancer Screening 1952 FOBT Annual 1952 Sigmoidoscopy 1950 Yearly Physical 1952 Hepatitis C Screening 1970 Zoster Vaccines (1 of 2) 2002 COVID-19 Vaccine (3 - 2023-2 5 season) 2024 10/15/2020, 09/24/2020 Influenza Vaccine (#1) 2025 04/27/2021 DTaP, Tdap and Td Vaccines M in Age 18 02/19/2027 02/19/2017 RSV Immunization Adult (1 - 1-dose 75+ series) 2027 Pneumococcal [...] on patient's age to complete this topic Insurance [employer] [place] [employer] OXANA NERI [id number] Care Teams Optical Goods Drilling Machine Operator Relationship Specialty [place] [address] [place] [address] PCP - General General Medicine 03/17/20
--- OUTSIDE RECORDS SUMMARY | 2025-04-01 12:15 | XMS_ITS | Encounter Summary ---
Author Organization [facility] Address [address] [place] [address] Phone Care Team Providers Care Documentation Writer Name Role Phone Joe Delaney MD Primary Care Provider [phone] Twan Davis MD Unavailable [phone] Wan Rodríguez Unavailable Rozina Petersen MD Unavailable Encounter Details Date Type Department Care Team Description 05/05/2019 Orders Only Internal Medicine [address] [place] [phone] [place] [address] [place] [address] [phone] GERD without esophagitis; Essential hypertension; History of [...] Office Visit Internal Medicine Joe Delaney MD [facility]9 [place], [place] [phone] 08/03/2025 Office Visit Pain Medicine Patricia Sotelo PA [address] [place] [address] documented as of this encounter Procedures Procedure [...] EDT Joe Delaney MD LAB BLOOD ORDERABLES [facility] JOE [facility]. [place], [place] [phone] * Lipid panel (05/05/2019 8:35 AM EDT) Cholesterol 159 136 - 200 mg/dL [facility] Comment: Cholesterol Risk Levels Recommended under 200mg/dl Borderline 200-239mg/dl High Risk above 240mg/dl Triglycerides 78 48 - 200 mg/dL [facility] HDL 40 35 - 92 mg/dL [facility] LDL Cholesterol 104 0 - 140 mg/dL [facility] Total Bqg-PEU-Jnpf (LDL+VLDL) 119.4 30.0 - 130.0 mg/dl [facility] Chol/HDL Ratio 4.0 3.4 - 24.0 [facility] Blood 05/05/2019 8:35 AM EDT 05/05/2019 8:39 AM EDT Joe Delaney MD LAB BLOOD ORDERABLES [facility] [address] [place], [place] [phone] * (ABNORMAL) Comprehensive metabolic panel (05/05/2019 8:35 AM EDT) GLUCOSE 83 70 - 105 mg/dL [facility] [...] [facility] Comment:If patient is Radha n Martiniqu[place] multiply result by 1.212 Alb/Glob ratio 2.0(H) 1.2 - 1.8 [facility] Globulin 2.2 1.6 - 3.9 g/dL [facility] Blood 05/05/2019 8:35 AM EDT 05/05/2019 8:39 AM EDT Joe Delanye MD LAB BLOOD ORDERABLES [facility] [address] [place], [place] [phone] * CBC (05/05/2019 8:35 AM EDT) WBC [...] MD LAB BLOOD ORDERABLES FREQUENCY [facility] [address] [place], [place] [phone] documented in this encounter Visit Diagnoses Diagnosis [...] documented as of this encounter Care Teams Documentation Writer Relationship Specialty Start Date End Date Joe Delaney MD [address] [place] [address] PCP - General Internal Medicine 11/17/18 [place] [address] [place] [address] Referring Physician Internal Medicine 11/17/18 Wan Rodríguez [facility] [place] [address] 06/02/19 Rozina Petersen MD Gastroenterology 03/30/20 documented as of this encounter
--- OUTSIDE RECORDS SUMMARY | 2025-04-01 12:15 | XMS_ITS | Encounter Summary ---
Author Organization [facility] Address [address] [place] [address] Phone Care Team Providers Care Counseling Director Name Role Phone Joe Delaney MD Primary Care Provider [phone] Twan Davis MD Unavailable [phone] Wan Rodríguez Unavailable [phone] Rozina Petersen MD Unavailable Encounter Details Date Type Department Care Team Description 07/03/2017 Conversion Orthopedics [address] [place] [phone] Eleanor Mcfarland PA [address] [place] [address] Social History Tobacco Use Types Packs/Day Years [...] , Father is , at age 83, [place] suspected. Had high PSA but not Ca. 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 no Comp Case: no [...] Signed New Problems: HIP PAIN, LEFT (ICD-719.45) ([id number]) -- Plan: - Discussed option of repeat [...] needed when in Afib New Orders: SNOMED-CT: [id number] Patient Encounter for Meaningful Use [[id number]] Fred was given his 2nd Cortisone injection [...] this documentation has been converted into the [employer] ASA EHR from our [employer] EMR forinformational purposes only. This documentation must not be released or used for legal purposes as the note is missing the responsible provider???s signature. A copy of the legal medical record can be obtained or printed only from the [employer] EMR. Injections Injections Dx for orders: KNEE PAIN; RIGHT ([id number]) Dx for orders: PRIMARY LOCALIZED OSTEOARTHRITIS OF RIGHT KNEE ([id number]) Kenalog dosage given: 1ml Kenalog strength: 40mg Kenalog wasted: 0 Kenalog given by: Funmi Armenta Kenalog Time given: 930 Kenalog Medication provided by: floor-stock Kenalog Mfr: bristol magaña Kenalog Rte: Intra-articular Kenalog Lot: [id number] Kenalog [facility] number: [id number] Kenalog Exp Date: 10/2018 Kenalog Site: right knee Lidocaine dosage given: 2ml Lidocaine wasted: 0 Lidocaine given by: Funmi Armenta Lidocaine Time given: 930 Lidocaine Medication provided by: floor-stock Lidocaine Mfr: Hospira Lidocaine Rte: Intra-articular Lidocaine Lot: [id number] Lidocaine NDC number: [id number] Lidocaine Exp Date: 08/2018 Lidocaine Site: right knee Marcaine dosage given: 2ml Marcaine wasted: 0 Marcaine given by: Funmi Armenta Marcaine Time given: 930 Marcaine Medication provided by: floor-stock Marcaine Mfr: Hospira Marcaine Rte: intra-articular Marcaine Lot: [id number] Marcaine NDC number: [id number] Marcaine Exp Date: 09/2018 Marcaine Site: right knee Order Changes - Added new Service order of Kenalog 40 mg ([id number]) - Signed Please note, this documentation has been converted into the [employer] ASA EHR from our [employer] EMR forinformational purposes only. This documentation must not be released or used for legal purposes as the note is missing the responsible provider???s signature. A copy of the legal medical record can be obtained or printed only from the [employer] EMR. documented in this encounter Plan of Treatment Upcoming Encounters Date Type Specialty Care Team Description 05/25/2025 Office Visit Internal Medicine Joe Delaney MD [address] [place], [place] [phone] 08/03/2025 Office Visit Pain Medicine Patricia Sotelo PA [address] [place] [address] documented as of this encounter Visit Diagnoses Not on filedocumented in this encounter Additional Health Concerns Infection Onset Date Last Indicated Resolved Time COVID-19 Rule Out Comment:04/29/2020 Negative (PAT) 02/20/2020 COVID19 NEGATIVE (PAT) 02/23/2020 02/23/2020 02/23/2020 10:42 AM EDT documented as of this encounter Care Teams Counseling Director Relationship Specialty Start Date End Date Joe Delaney MD [address] [place], [place] [phone] PCP - General Internal Medicine 11/17/18 [place] [address] [place] [address] Referring Physician Internal Medicine 11/17/18 Wan Rodríguez [facility] Gianna [facility] [place] [address] 06/02/19 Rozina Petersen MD Gastroenterology 03/30/20 documented as of this encounter
--- OUTSIDE RECORDS SUMMARY | 2025-04-01 12:15 | XMS_ITS | Encounter Summary ---
Author Organization [facility] Address [address] [place] [address] Phone Care Team Providers Care Mems Engineer Name Role Phone Joe Delaney MD Primary Care Provider [phone] Twan Davis MD Unavailable [phone] Wan Rodríguez Unavailable [phone] Rozina Petersen MD Unavailable Encounter Details Date Type Department Care Team Description 03/19/2024 Email from [employer] Internal Medicine [address] [place] [phone] Joe Delaney MD [address] [place] [address] Social History Tobacco Use Types Packs/Day [...] Office Visit Internal Medicine Joe Delaney MD [address] [place] [address] 08/03/2025 Office Visit Pain Medicine Patricia Sotelo PA [address] [place], [place] [phone] documented as of this encounter Visit Diagnoses Not on filedocumented in this encounter Care Teams Mems Engineer Relationship Specialty Start Date End Date Joe Delaney MD [address] [place] [address] PCP - General Internal Medicine 11/17/18 Twan Davis MD [address] [place] [address] Referring Physician Internal Medicine 11/17/18 Wan Rod[facility]uez [facility] [place] [address] 06/02/19 Rozina Petersen MD Gastroenterology 03/30/20 documented as of this encounter
--- OUTSIDE RECORDS SUMMARY | 2025-04-01 12:15 | XMS_ITS | Encounter Summary ---
Author Organization [facility] Address [address] [place] [address] Phone Care Team Providers Care Lead Technical Writer Name Role Phone Joe Delaney MD Primary Care Provider [phone] Twan Davis MD Unavailable [phone] Wan Rodríguez Unavailable [phone] Rozina Petersen MD Unavailable Encounter Details Date Type Department Care Team Description 11/15/2021 Orders Only Internal Medicine [address] [place] [phone] Joe Delaney MD [address] [place] [address] [phone] Numbness; Essential hypertension; Goiter diffuse, adenomatous; Laboratory [...] Description 05/25/2025 Office Visit Internal Medicine Joe Dleaney MD [address] [place] [address] [phone] 08/03/2025 Office Visit Pain Medicine Patricia Sotelo PA [address] [place] [address] documented as of this encounter Procedures Procedure [...] LAB BLOOD ORDERABLES FREQUENCY Performing Organization Address [facility] de Phone Number [facility] [address] [facility]. [place], [place] [phone] * (ABNORMAL) Lipid panel (11/15/2021 8:00 AM EDT) Cholesterol 152 136 - 200 mg/dL [facility] Comment: Cholesterol Risk Levels Recommended under 200mg/dl Borderline 200-239mg/dl High Risk above 240mg/dl Triglycerides 69 48 - 200 mg/dL [facility] HDL 46 35 - 92 mg/dL [facility] LDL Cholesterol 92 0 - 140 mg/dL [facility] Total Uub-BDW-Ceih (LDL+VLDL) 105.8 30.0 - 130.0 mg/dl [facility] Chol/HDL Ratio 3.3(L) 3.4 - 24.0 [facility] Blood 11/15/2021 8:00 AM EDT 11/15/2021 8:20 AM EDT Joe Delaney MD LAB BLOOD ORDERABLES Performing Organization Address [facility] Co de Phone Number [facility] [address] [facility]. [place], [place] [phone] * (ABNORMAL) Comprehensive metabolic panel (11/15/2021 8:00 [...] [facility] Comment:If patient is Radha n Greenland[place] multiply result by 1.212 Alb/Glob ratio 2.1(H) 1.2 - 1.8 [facility] Globulin 2.1 1.6 - 3.9 g/dL [facility] Blood 11/15/2021 8:00 AM EDT 11/15/2021 8:20 AM EDT Joe Delaney MD LAB BLOOD ORDERABLES [facility] [address] [facility]. [place], [place] [phone] * TSH (11/15/2021 8:00 AM EDT) TSH 1.54 0.50 - 6.00 uIU/mL [facility] Blood 11/15/2021 8:00 AM EDT 11/15/2021 8:20 AM EDT Jeo Delaney MD LAB BLOOD ORDERABLES Performing Organization Address City/[facility]/ZIP Co de Phone Number [facility] [address] [facility] [address] [place], [place] [phone] * Vitamin B12 (11/15/2021 8:00 AM EDT) Vitamin B-12 396 230 - 1,050 pg/mL [facility] Blood 11/15/2021 8:00 AM EDT 11/15/2021 8:20 AM EDT Joe Delaney MD LAB BLOOD ORDERABLES Performing Organization Address [facility] Co de Phone Number [facility] [address] [place], [place] [phone] documented in this encounter Visit Diagnoses Diagnosis Numbness Disturbance of skin sensation Essential hypertension Unspecified essential hypertension Goiter diffuse, adenomatous Unspecified nontoxic nodular goiter Laboratory examination ordered as part of a routine general medical examination GERD without esophagitis Esophageal reflux documented in this encounter Care Teams Lead Technical Writer Relationship Specialty Start Date End Date Joe Delaney MD [facility] [place] [address] PCP - General Internal Medicine 11/17/18 [place] [address] [place] [address] Referring Physician Internal Medicine 11/17/18 Wan Rodríguez [facility] [place] [phone] 06/02/19 Rozina Petersen MD Gastroenterology 03/30/20 documented as of this encounter
--- OUTSIDE RECORDS SUMMARY | 2025-04-01 12:15 | XMS_ITS | Encounter Summary ---
Author Organization [facility] Address [address] [place] [address] Phone Care Team Providers Care Identity Access Management Architect Name Role Phone Joe Delaney MD Primary Care Provider [phone] Twan Davis MD Unavailable [phone] Wan Rodríguez Unavailable [phone] Rozina Petersen MD Unavailable Encounter Details Date Type Department Care Team Description 12/05/2017 Conversion Orthopedics [address] [place] [phone] Eleanor Mcfarland PA [address] [place] [address] Social History Tobacco Use Types Packs/Day Years [...] , Father is , at age 83, [place] suspected. Had high PSA but not Ca. 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 no Comp Case: no [...] RIGHT KNEE as unchanged - Funmi Mcfarland [facility] - Signed New Problems: KNEE PAIN, RIGHT (ICD-719.46) ([id number]) -- Plan: - Patient is only 4 [...] ORAL CAPSULE - Reason:Other New Orders: SNOMED-CT: [id number] Patient Encounter for Meaningful Use [[id number]] in his right knee(s) Using aseptic technique [...] converted into the Epic EHR from our [employer] EMR forinformational purposes only. This documentation must not be released or used for legal purposes as the note is missing the responsible provider???s signature. A copy of the legal medical record can be obtained or printed only from the [employer] EMR. Injections Injections Dx for orders: KNEE PAIN; RIGHT ([id number]) Dx for orders: PRIMARY LOCALIZED OSTEOARTHRITIS OF RIGHT KNEE ([id number]) Ketorolac dosage given: 30 mg/ ml Ketorolac wasted: 0 Ketorolac given by: Bartolo BUCIO; Funmi Medication provided by: floor-stock Ketorolac Mfr: hospira Ketorolac Rte: intra-articular Ketorolac Lot: [id number] Ketorolac ND number: [id number] Ketorolac Exp Date: Lidocaine dosage given: 2 ml Lidocaine wasted: 0 Lidocaine given by: Bartolo BUCIO; Funmi Lidocaine Medication provided by: floor-stock Lidocaine Mfr: Hospira Lidocaine Rte: Intra-articular Lidocaine Lot: [id number] Lidocaine ND number: [id number] Lidocaine Exp Date: Lidocaine Site: right knee Dx for orders: KNEE PAIN; RIGHT ([id number]) Marcaine dosage given: 2 ml Marcaine wasted: 0 Marcaine given by: Bartolo BUCIO; Funmi Marcaine Medication provided by: floor-stock Marcaine Mfr: fresenius Marcaine Rte: intra-articular Marcaine Lot: [id number] Marcaine NDC number: [id number] Marcaine Exp Date: Marcaine Site: right knee Clinical Action Note Please note, this documentation has been converted into the Konokopia EHR from our [employer]basic EMR forinformational purposes only. This documentation must not be released or used for legal purposes as the note is missing the responsible provider???s signature. A copy of the legal medical record can be obtained or printed only from the Popbasic EMR. documented in this encounter Plan of Treatment Upcoming Encounters Date Type Specialty Care Team Description 05/25/2025 Office Visit Internal Medicine Joe Delaney MD [address] [place], [place] [id number] 08/03/2025 Office Visit Pain Medicine Patricia Sotelo PA [address] [place], [place] [phone] documented as of this encounter Visit Diagnoses Not on filedocumented in this encounter Additional Health Concerns Infection Onset Date Last Indicated Resolved Time COVID-19 Rule Out Comment:04/29/2020 Negative (PAT) 02/20/2020 COVID19 NEGATIVE (PAT) 02/23/2020 02/23/2020 02/23/2020 10:42 AM EDT documented as of this encounter Care Teams Identity Access Management Architect Relationship Specialty Start Date End Date Joe Delaney MD [address] [place] [address] PCP - General Internal Medicine 11/17/18 [place] [address] [place] [address] Referring Physician Internal Medicine 11/17/18 Wan Rodríguez [facility] [place] [address] 06/02/19 Rozina Petersen MD Gastroenterology 03/30/20 documented as of this encounter
--- OUTSIDE RECORDS SUMMARY | 2025-04-01 12:15 | XMS_ITS | Encounter Summary ---
Author Organization [facility] Address [address] [place] [address] Phone Care Team Providers Care Purchasing And Fiscal Clerk Name Role Phone Joe Delaney MD Primary Care Provider [phone] Twan Davis MD Unavailable [phone] Wan Rodríguez Unavailable [phone] Rozina Petersen MD Unavailable Encounter Details Date Type Department Care Team Description 09/18/2021 Email from [facility] Internal Medicine [address] [place] [phone] Joe Delaney MD [address] [place] [address] Social History Tobacco Use Types Packs/Day [...] Visit Internal Medicine Joe Delaney MD [address] [place] [address] 08/03/2025 Office Visit Pain Medicine Patricia Sotelo PA [address] [place] [address] documented as of this encounter Visit Diagnoses Not on filedocumented in this encounter Care Teams Purchasing And Fiscal Clerk Relationship Specialty Start Date End Date Joe Delaney MD [address] [place] [address] PCP - General Internal Medicine 11/17/18 [place] [address] [place] [address] Referring Physician Internal Medicine 11/17/18 Wan Rodríguez [facility] [place] [address] 06/02/19 Rozina Petersen MD Gastroenterology 03/30/20 documented as of this encounter
--- OUTSIDE RECORDS SUMMARY | 2025-04-01 12:15 | XMS_ITS | Encounter Summary ---
Author Organization [facility] Address [address] [place] [address] Phone Care Team Providers Care String Studies Director Name Role Phone Joe Delaney MD Primary Care Provider [phone] Twan Davis MD Unavailable [phone] Wan Rodríguez Unavailable Rozina Petersen MD Unavailable Encounter Details Date Type Department Care Team Description 11/03/2018 Conversion Orthopedics [address] [place] [address] Eleanor Mcfarland PA [address] [place], [place] [phone] Social History Tobacco Use Types Packs/Day Years Used Date Smoking Tobacco: Never Assessed Sex Assigned at Date Recorded Male 03/28/2020 2:09 AM E DT Job Start Date Occupation Industry Not on file Not on file Not on file documented as of this encounter Plan of Treatment Upcoming Encounters Date Type Specialty Care Team Description 05/25/2025 Office Visit Internal Medicine Joe Delaney MD [address] [place] [address] 08/03/2025 Office Visit Pain Medicine Patricia Sotelo PA [address] [place] [address] documented as of this encounter Procedures Procedure [...] By: LUCIO PURCELL MD on 10/15/2018 15:27:00 Procedure Note Lucio Purcell [...] documented as of this encounter Care Teams String Studies Director Relationship Specialty Start Date End Date Jeo Delaney MD [address] [place], [place] [phone] PCP - General Internal Medicine 11/17/18 Twan Davis MD [address] [place] [address] Referring Physician Internal Medicine 11/17/18 Wan Rodríguez [facility] [place] [address] 06/02/19 Rozina Petersen MD Gastroenterology 03/30/20 documented as of this encounter
--- OUTSIDE RECORDS SUMMARY | 2025-04-01 12:15 | XMS_ITS | Encounter Summary ---
Author Organization [facility] Address [address] [place] [address] Phone Care Team Providers Care Ground Hand Name Role Phone Joe Delaney MD Primary Care Provider Twan Davis MD Unavailable [phone] Wan Rodríguez Unavailable Rozina Petersen MD Unavailable Encounter Details Date Type Department Care Team Description 11/02/2018 Conversion Endocrinology [address] [place] [address] Russ Allred MD [address] [place], [place] [phone] Social History Tobacco Use Types Packs/Day Years Used Date Smoking Tobacco: Never Assessed Sex Assigned at Date Recorded Male 03/28/2020 2:09 AM E DT Job Start Date Occupation Industry Not on file Not on file Not on file documented as of this encounter Plan of Treatment Upcoming Encounters Date Type Specialty Care Team Description 05/25/2025 Office Visit Internal Medicine Joe Delaney MD [address] [place] [address] 08/03/2025 Office Visit Pain Medicine Patricia Sotelo PA [address] [place] [address] documented as of this encounter Procedures Procedure [...] By: LUCIO EDUARDO MD on 2018 17:23:00 Procedure Note Lucio Eduardo [...] documented as of this encounter Care Teams Ground Hand Relationship Specialty Start Date End Date Joe Delaney MD [address] [place] [address] PCP - General Internal Medicine 11/17/18 Twan Davis MD [address] [place] [address] Referring Physician Internal Medicine 11/17/18 Wna Rodríguez [facility] [place] [address] 06/02/19 Rozina Petersen MD Gastroenterology 03/30/20 documented as of this encounter
--- OUTSIDE RECORDS SUMMARY | 2025-04-01 12:15 | XMS_ITS | Encounter Summary ---
Author Organization [facility] Address [address] [place] [address] Phone Care Team Providers Care Life Skills Teacher Name Role Phone Joe Delaney MD Primary Care Provider [phone] Twan Davis MD Unavailable Wan Rodríguez Unavailable [phone] Rozina Petersen MD Unavailable Encounter Details Date Type Department Care Team Description 05/31/2021 Email from [facility] Orthopedics [address] [place] [phone] Kimberly Herndon PA [address] [place] [address] Social History Tobacco Use Types Packs/Day [...] Office Visit Internal Medicine Joe Delaney MD [address] [place], [place] [phone] 08/03/2025 Office Visit Pain Medicine Patricia Sotelo PA [address] [place], [place] [address]9313 documented as of this encounter Visit Diagnoses Not on filedocumented in this encounter Care Teams Life Skills Teacher Relationship Specialty Start Date End Date Joe Delaney MD [address] [place] [address] PCP - General Internal Medicine 11/17/18 Twan Davis MD [address] [place] [address] Referring Physician Internal Medicine 11/17/18 Wan Rodríguez [facility] [place] [address] 06/02/19 Rozina Petersen MD Gastroenterology 03/30/20 documented as of this encounter
--- OUTSIDE RECORDS SUMMARY | 2025-04-01 12:15 | XMS_ITS | Encounter Summary ---
Author Organization [facility] Address [address] [place] [address] Phone Care Team Providers Care Pourer Off Name Role Phone Joe Delaney MD Primary Care Provider [phone] Twan Davis MD Unavailable [phone] Wan Rodríguez Unavailable [phone] Rozina Petersen MD Unavailable Encounter Details Date Type Department Care Team Description 06/10/2018 Conversion Endocrinology [address] [place] [address] Jayjay Allred MD [address] [place], [place] 8[address]2913 Social History Tobacco Use Types Packs/Day Years [...] Internal Medicine Joe Delaney MD [address] [place] [address] 08/03/2025 Office Visit Pain Medicine Patricia Sotelo PA [address] [place] [address] documented as of this encounter Procedures Procedure [...] PM EST Testing performed at: [RN] [facility] [address], [place], [address], , Marine Steamfitter: Lynn Dukes MD Jayjay Allred MD LAB BLOOD ORDERABLES [facility] * Vitamin D 25 hydroxy (06/10/2018 8:15 AM EST) Vit D, 25-Hydroxy 40.6 30.0 - 100.0 ng/mL [facility] 06/10/2018 8:15 AM EST 06/10/2018 8:23 AM EST Narrative [facility] - 06/10/2018 1:01 PM EST Jayjay Allred MD LAB BLOOD ORDERABLES [facility] [place], [place] [phone] * Testosterone, total adult (06/10/2018 8:15 AM EST) TESTOSTERONE 611 362 - 870 ng/dl [facility] 06/10/2018 8:15 AM EST 06/10/2018 8:23 AM EST Narrative [facility] - 06/10/2018 1:01 PM EST Jayjay Allred MD LAB BLOOD ORDERABLES Performing Organization Address City/[facility]/ZIP Co de Phone Number AP Saldaña [facility] [place], [place] [phone] * TSH (06/10/2018 8:15 AM EST) TSH 2.00 0.50 - 6.00 uIU/mL [facility] 06/10/2018 8:15 AM EST 06/10/2018 8:23 AM EST Narrative [facility] - 06/10/2018 1:01 PM EST Jayjay Allred MD LAB BLOOD ORDERABLES Performing Organization Address [facility] Co de Phone Number AP DIAZ [address] [facility] [place], [place] [phone] * T4, free (06/10/2018 8:15 AM EST) Free T4 1.12 0.75 - 1.54 ng/dL [facility] 06/10/2018 8:15 AM EST 06/10/2018 8:23 AM EST Narrative [facility] - 06/10/2018 1:01 PM EST Jayjay Allred MD LAB BLOOD ORDERABLES Performing Organization Address [facility] Co de Phone Number AP Saldaña [facility] [place], [place] [phone] * Magnesium (06/10/2018 8:15 AM EST) Magnesium 2.00 1.90 - 2.70 mg/dL [facility] 06/10/2018 8:15 AM EST 06/10/2018 8:23 AM EST Narrative AP DIAZ - 06/10/2018 9:50 AM EST Jayjay Allred MD LAB BLOOD ORDERABLES AP DIAZ [address] [facility] [place], [place] [phone] documented in this encounter Visit Diagnoses Not on filedocumented in this encounter Additional Health Concerns Infection Onset Date Last Indicated Resolved Time COVID-19 Rule Out Comment:04/29/2020 Negative (PAT) 02/20/2020 COVID19 NEGATIVE (PAT) 02/23/2020 02/23/2020 02/23/2020 10:42 AM EDT documented as of this encounter Care Teams Pourer Off Relationship Specialty Start Date End Date Joe Delaney MD [address] [place] [address] PCP - General Internal Medicine 11/17/18 Twan Davis MD [address] [place] [address] Referring Physician Internal Medicine 11/17/18 Wan Rodríguez [facility] Vlad Katz [facility] [place] [address] 06/02/19 Rozina Petersen MD Gastroenterology 03/30/20 documented as of this encounter
--- OUTSIDE RECORDS SUMMARY | 2025-04-01 12:15 | XMS_ITS | Encounter Summary ---
Author Organization [facility] Address [address] [place] [address] Phone Care Team Providers Care Postage Machine Operator Name Role Phone Joe Delaney MD Primary Care Provider [phone] Twan Davis MD Unavailable [phone] Wan Rodríguez Unavailable [phone] Rozina Petersen MD Unavailable Encounter Details Date Type Department Care Team Description 08/09/2024 Email from [facility] [facility] Internal Medicine [address] [place] [phone] Joe Delaney MD [address] [place] [address] Social History Tobacco Use Types Packs/Day [...] Visit Internal Medicine Joe Delaney MD [address] [place] [address] 08/03/2025 Office Visit Pain Medicine Patricia Sotelo PA [address] [place], [place] [phone] documented as of this encounter Visit Diagnoses Not on filedocumented in this encounter Care Teams Postage Machine Operator Relationship Specialty Start Date End Date Joe Delaney MD [address] [place] [address] PCP - General Internal Medicine 11/17/18 [place] [address] [place] [address] Referring Physician Internal Medicine 11/17/18 Wan Rodríguez [facility] [place] [phone] 06/02/19 Rozina Petersen MD Gastroenterology 03/30/20 documented as of this encounter
--- OUTSIDE RECORDS SUMMARY | 2025-04-01 12:15 | XMS_ITS | Encounter Summary ---
Author Organization [facility] Address [address] [place] [address] Phone Care Team Providers Care Financial Planning Assistant Name Role Phone Joe Delaney MD Primary Care Provider [phone] Twan Davis MD Unavailable [phone] Wan Rodríguez Unavailable [phone] Rozina Petersen MD Unavailable Encounter Details Date Type Department Care Team Description 10/14/2018 Conversion Orthopedics [address] [place] [phone] Eleanor Mcfarland PA [address] [place] [address] Social History Tobacco Use Types Packs/Day Years [...] new problem of SHOULDER PAIN, RIGHT (ICD-719.41) ([id number]-Z52.511) New Orders: Shoulder-Complete, minimum 2 Views, right [[id number]] - 10/15/2018 Please note, this documentation has been converted into the [employer] EHR from our [employer] EMR forinformational purposes only. This documentation must not be released or used for legal purposes as the note is missing the responsible provider???s signature. A copy of the legal medical record can be obtained or printed only from the [employer] EMR. documented in this encounter Plan of Treatment Upcoming Encounters Date Type Specialty Care Team Description 05/25/2025 Office Visit Internal Medicine Joe Delaney MD [address] [place], [place] [phone] 08/03/2025 Office [place] [address] [place] [phone] documented as of this encounter Visit Diagnoses Not on filedocumented in this encounter Additional Health Concerns Infection Onset Date Last Indicated Resolved Time COVID-19 Rule Out Comment:04/29/2020 Negative (PAT) 02/20/2020 COVID19 NEGATIVE (PAT) 02/23/2020 02/23/2020 02/23/2020 10:42 AM EDT documented as of this encounter Care Teams Financial Planning Assistant Relationship Specialty Start Date End Date Joe Delaney MD [address] [place], [place] [phone] PCP - General Internal Medicine 11/17/18 [place] [address] [place] [address] Referring Physician Internal Medicine 11/17/18 Wan Rodríguez [facility] [place] [address] 06/02/19 Rozina Petersen MD Gastroenterology 03/30/20 documented as of this encounter
--- OUTSIDE RECORDS SUMMARY | 2025-04-01 12:15 | XMS_ITS | Encounter Summary ---
Author Organization [facility] Address [address] [place] [address] Phone Care Team Providers Care Evp Name Role Phone Joe Delaney MD Primary Care Provider Twan Davis MD Unavailable [phone] Wan Rodríguez Unavailable Rozina Petersen MD Unavailable Encounter Details Date Type Department Care Team Description 09/19/2017 Conversion Internal Medicine [address] [place] [address] Joe Delaney MD [address] [place], [place] [phone] Social History Tobacco Use Types Packs/Day Years Used Date Smoking Tobacco: Never Assessed Sex Assigned at Date Recorded Male 03/28/2020 2:09 AM E DT Job Start Date Occupation Industry Not on file Not on file Not on file documented as of this encounter Plan of Treatment Upcoming Encounters Date Type Specialty Care Team Description 05/25/2025 Office Visit Internal Medicine Joe Delaney MD [address] [place], [place] [phone] 08/03/2025 Office Visit Pain Medicine Patricia Sotelo PA [address] [place] [address] documented as of this encounter Procedures Procedure [...] 5:10 PM EST Testing performed at: [] [facility], [phone], , Impression Printer: Carter Norton MD Joe Delaney MD MICROBIOLOGY - GENER AL ORDERABLES Performing Organization Address City/[facility] Co de Phone Number [facility] * INFLUENZA A (CULTURE IF NEGATIVE) (09/19/2017 5:44 PM EST) Influenza A Negative Negative [facility] Comment:A negative test resu lt may occur if the level of antigen in a sample is below the detection limit of the test. A positive result does not rule out co- infections with other pathogens or identify any specific influenza A virus subtype. 09/19/2017 5:44 PM EST 09/19/2017 5:44 PM EST Narrative [facility] - 09/19/2017 6:07 PM EST Joe Delaney MD MICROBIOLOGY - GENER AL ORDERABLES [facility] [address] [place], [place] [phone] * INFLUENZA B (CULTURE IF NEGATIVE) (09/19/2017 [...] MICROBIOLOGY - GENER AL ORDERABLES AP DIAZ [address] [place], [place] [phone] documented in this encounter Visit Diagnoses Not on filedocumented in this encounter Additional Health Concerns Infection Onset Date Last Indicated Resolved Time COVID-19 Rule Out Comment:04/29/2020 Negative (PAT) 02/20/2020 COVID19 NEGATIVE (PAT) 02/23/2020 02/23/2020 02/23/2020 10:42 AM EDT documented as of this encounter Care Teams Evp Relationship Specialty Start Date End Date Joe Delaney MD [address] [place] [address] PCP - General Internal Medicine 11/17/18 [place] [address] [place] [address] Referring Physician Internal Medicine 11/17/18 Wan Rodríguez [facility] [place] [address] 06/02/19 Rozina Petersen MD Gastroenterology 03/30/20 documented as of this encounter
--- OUTSIDE RECORDS SUMMARY | 2025-04-01 12:15 | XMS_ITS | Encounter Summary ---
Author Organization [facility] Address [address] [place] [address] Phone Care Team Providers Care Ehs Engineer Name Role Phone Joe Delaney MD Primary Care Provider [phone] Twan Davis MD Unavailable [phone] Wan Rodríguez Unavailable [phone] Rozina Petersen MD Unavailable Encounter Details Date Type Department Care Team Description 10/15/2018 Conversion Orthopedics [address] [place] [phone] Eleanor Mcfarland PA [address] [place] [address] Social History Tobacco Use Types Packs/Day Years [...] , Father is , at age 83, [place] suspected. Had high PSA but not Ca. 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 no Comp Case: no [...] RPA-C - Signed New Problems: LBP (ICD-724.2) (ZXU15-Z90.5) -- PRIMARY OSTEOARTHRITIS OF RIGHT SHOULDER (ICD-715.11) (KUJ76-N09.011) -- SHOULDER IMPINGEMENT SYNDROME, RIGHT (ICD-726.2) (GCS84-Q48.41) -- Plan: - Reviewed xrays right shoulder [...] any questions or concerns. New Orders: SNOMED-CT: [id number] Patient Encounter for Meaningful Use [[id number]] Fred was given his 6th Cortisone injection [...] this documentation has been converted into the [employer] EHR from our [employer] EMR forinformational purposes only. This documentation must not be released or used for legal purposes as the note is missing the responsible provider???s signature. A copy of the legal medical record can be obtained or printed only from the [employer] EMR. Injections Injections Dx for orders: PRIMARY LOCALIZED OSTEOARTHRITIS OF RIGHT KNEE (MZH92-F86.11) Dx for orders: KNEE PAIN; RIGHT (JIK93-N80.561) Kenalog dosage given: 1mL Kenalog strength: 40mg Kenalog: Done Kenalog wasted: 0 Kenalog given by: CHANDRA Irizarry Kenalog Medication provided by: floor-stock Kenalog Mfr: [place] Kenalog Rte: Intra-articular Kenalog Lot: [id number] Kenalog [facility] number: [phone] Kenalog Exp Date: Kenalog Site: right knee Lidocaine dosage given: 2mL Lidocaine: given Lidocaine wasted: 0 Lidocaine given by: CHANDRA Irizarry Lidocaine Medication provided by: floor-stock Lidocaine Mfr: Hospira Lidocaine Rte: Intra-articular Lidocaine Lot: [id number] Lidocaine [place] number: [phone] Lidocaine Exp Date: Lidocaine Site: right knee Marcaine dosage given: 2mL Marcaine: given Marcaine wasted: 0 Marcaine given by: CHANDRA Irizarry Marcaine Medication provided by: floor-stock Marcaine Mfr: Hospira Marcaine Rte: intra-articular Marcaine Lot: [id number] Marcaine [facility] number: [phone] Marcaine Exp Date: Marcaine Site: right knee Order Changes - Added new Service order of Kenalog 40 mg ([id number]) - Signed Please note, this documentation has been converted into the [employer] EHR from our [employer] EMR forinformational purposes only. This documentation must not be released or used for legal purposes as the note is missing the responsible provider???s signature. A copy of the legal medical record can be obtained or printed only from the [employer] EMR. documented in this encounter Plan of Treatment Upcoming Encounters Date Type Specialty Care Team Description 05/25/2025 Office Visit Internal Medicine Joe Delaney MD [address] [place] [address] [id number] 08/03/2025 Office Visit Pain Medicine Patricia Sotelo PA [address] [place] [address] documented as of this encounter Visit Diagnoses Not on filedocumented in this encounter Additional Health Concerns Infection Onset Date Last Indicated Resolved Time COVID-19 Rule Out Comment:04/29/2020 Negative (PAT) 02/20/2020 COVID19 NEGATIVE (PAT) 02/23/2020 02/23/2020 02/23/2020 10:42 AM EDT documented as of this encounter Care Teams Ehs Engineer Relationship Specialty Start Date End Date Joe Delaney MD [facility] [place] [address] PCP - General Internal Medicine 11/17/18 Twan Davis MD [address] [place] [address] Referring Physician Internal Medicine 11/17/18 Wan Rodríguez [facility] [place] [address] 06/02/19 Rozina Petersen MD Gastroenterology 03/30/20 documented as of this encounter
--- OUTSIDE RECORDS SUMMARY | 2025-04-01 12:15 | XMS_ITS | Continuity of Care Document ---
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 ETOH Use Never used alcohol Tobacco Use Start: Unknown Patient has neve r smoked Recreational Drug Use Never Used Drugs Smoking Status Reviewed: 09/30/24 Patient has n ever smoked Allergies and adverse reactions Active Allergies Criticality Reaction Severity Comments Date Amlodipine Unable to assess criticality Penicillin Unable to assess criticality Medications Active Medications SIG Qnty Indications Ordering Provider Date Losartan Hpwagpuev43jt Tablets 1 by mouth every day CHANDRA Nash 08/16/2022 Xdocknv72jk Tablets Take 1 Tablet By Mouth Every Day. Maximum Daily Dose Is 1 90tabs Kaleb Price MD Triple Magnesium Copmplex 400 MG 2 po daily Unknown Magnesium Oxide -MG Mzzdkahjso862og Tablets 2 by mouth every day Unknown Magnesium Tauratw 200 MG 2 po daily Unknown Vadim Men Multivitamin 1 daily Unknown Vitamin [id number] Capsules 2 by mouth every morning Unknown Vitamin G8826yii (5000 Ut) Tablets 2 by mouth every [...] Prevention of systemic embolism with atrial fib.,acute [place] and tissue prosthetic heart valves. = 2.0 [...] cause falsely depressed ALT results with the [employer] ALTPLc assay. 7 The use of hemolyzed [...] serum or plasma. 11 Testing performed on [employer] Chemistry Module. 12 Chest pain less than [...] such as iSTAT. Testing performed on Siemens Care at Hand Immunoassay Module. Assessments Date Code Description Provider 10/01/2024 Z79.01 raw stock machine feeder (current) use of a nticoagulants Abdelrahman Long [...] (valve) insufficiency Abdelrahman Long MD 03/11/2024 Z79.01 raw stock machine feeder (current) use of a nticoagulants Abdelrahman Long MD 03/11/2024 I48.0 Paroxysmal atrial fibrillati on Abdelrahman Long MD 03/11/2024 T82.7xxD Infection and in flammatory reaction due to other cardiac and vascular devices, implants and grafts, subsequent encounter Abdelrahman Long MD 03/11/2024 I35.1 Nonrheumatic aortic (valve) insufficiency Abdelrahman Long MD 03/11/2024 I36.1 Nonrheumatic tri cuspid (valve) insufficiency Abdelrahman Long MD 09/25/2023 Z79.01 raw stock machine feeder (current) use of a nticoagulants Patricia Etienne, [...] Lu 08/16/2022 I10 Essential (primary) hyperten livia Patriciadora Diazvan, PA 08/16/2022 I48.0 Paroxysmal atrial fibrillati on Patricia Etienne, PA 08/16/2022 Z79.01 raw stock machine feeder (current) use of a nticoagulants Patricia Etienne, PA 08/16/2022 R00.2 Palpitations Patricia Etienne, PA 09/04/2021 I10 Essential (primary) hyperten livia Chance Denson MD 09/04/2021 K21.9 Gastro-esophagea l reflux disease without esophagitis Chanec Denson MD 09/04/2021 I35.1 Nonrheumatic aortic (valve) [...] fibrillati on Chance Denson MD 09/04/2021 Z79.01 raw stock machine feeder (current) use of a nticoagulants Chance Denson [...] fibrillati on Eduardo Vazquez NP 08/02/2021 Z79.01 raw stock machine feeder (current) use of a nticoagulants Eduardo Vazquez [...] Paroxysmal atrial fibrillati on Jonelle Pollack RN, [facility] 02/26/2019 Z95.818 Presence of othe r cardiac implants and grafts Twan Davis MD 02/26/2019 I48.0 Paroxysmal atrial fibrillati on Twan Davis MD 02/26/2019 I35.1 Nonrheumatic aortic (valve) insufficiency Jonelle Pollack RN, [facility] 02/26/2019 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 Jonelle Pollack RN, [facility] 02/26/2019 I10 Essential (primary) hyperten livia Twan Davis MD 02/26/2019 I34.0 Nonrheumatic mitral (valve) insufficiency Jonelle Pollack RN, [facility] 02/26/2019 I35.1 Nonrheumatic aortic (valve) insufficiency Twan Davis MD 02/26/2019 I10 Essential (primary) hyperten livia Jonelle Pollack RN, [facility] 02/26/2019 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 Twan Davis MD 02/26/2019 Z95.818 Presence of othe r cardiac implants and grafts Jonelle Pollack RN, [facility] 02/23/2019 Z95.818 Presence of othe r [...] cardiac implants and grafts Twan Davis MD 03/13/2017 Z95.818 Presence of othe r [...]
--- OUTSIDE RECORDS SUMMARY | 2025-04-01 12:15 | XMS_ITS | Encounter Summary ---
Author Organization [facility] Address [address] [place] [address] Phone Care Team Providers Care Copy Operator Name Role Phone Joe Delaney MD Primary Care Provider [phone] Twan Davis MD Unavailable [phone] Wan Rodríguez Unavailable Rozina Petersen MD Unavailable Encounter Details Date Type Department Care Team Description 01/02/2018 [facility] Information Management - Release of Information [address] [place] [phone] Load Provider, Historical Social History Tobacco [...] Visit Internal Medicine Joe Delaney MD [address] [place], [place] [phone] 08/03/2025 Office Visit Pain Medicine Patricia Sotelo PA [address] [place], [place] [phone] documented as of this encounter Procedures Procedure Name Priority Date/Time Associated Diagnosis Comments PSA, TOTAL AND FREE Routine 01/02/2018 4 :22 PM EDT documented in this encounter Results * (ABNORMAL) PSA, total and free (01/02/2018 4:22 PM EDT) PSA 6.4(H) 0.0 - 4.0 ng/mL [facility] Comment: [place] ECLIA methodology. According to the [place] [employer], Serum PSA should decrease and [...] disease. PSA, Free 0.97 N/A ng/mL [facility] Comment:[place] ECLIA methodol ogy. PSA, Free Pct 15.2 [...] PSA for any other population of men. 01/02/2018 4:22 PM EDT 01/02/2018 4:24 PM EDT Narrative [facility] - 01/03/2018 8:40 AM EDT Testing performed at: [RN] [facility], [address] [place] [address], [place], [address], , Youth Ministry Director: Lynn Dukes MD Historical Load Provider LAB BLOOD ORDER SCARLETT [facility] documented in this encounter Visit Diagnoses Not on filedocumented in this encounter Additional Health Concerns Infection Onset Date Last Indicated Resolved Time COVID-19 Rule Out Comment:04/29/2020 Negative (PAT) 02/20/2020 COVID19 NEGATIVE (PAT) 02/23/2020 02/23/2020 02/23/2020 10:42 AM EDT documented as of this encounter Care Teams Copy Operator Relationship Specialty Start Date End Date Joe Delaney MD [address] [place] [address] PCP - General Internal Medicine 11/17/18 [place] [address] [place] [address] Referring Physician Internal Medicine 11/17/18 Wan Rodríguez [facility] [place] [address] 06/02/19 Rozina Petersen MD Gastroenterology 03/30/20 documented as of this encounter
--- OUTSIDE RECORDS SUMMARY | 2025-04-01 12:16 | XMS_ITS | Encounter Summary ---
Author Organization [facility] Address [address] [place] [address] Phone Care Team Providers Care Marketing Teacher Name Role Phone Joe Delaney MD Primary Care Provider Twan Davis MD Unavailable [phone] Wan Rodríguez Unavailable [phone] Rozina Petersen MD Unavailable Encounter Details Date Type Department Care Team Description 05/14/2017 Conversion Internal Medicine [address] [place] [address] Joe Delaney MD [address] [place], [place] [phone] Social History Tobacco Use Types Packs/Day Years Used Date Smoking Tobacco: Never Assessed Sex Assigned at Date Recorded Male 03/28/2020 2:09 AM E DT Job Start Date Occupation Industry Not on file Not on file Not on file documented as of this encounter Plan of Treatment Upcoming Encounters Date Type Specialty Care Team Description 05/25/2025 Office Visit Internal Medicine Joe Delaney MD [address] [place], [place] [phone] 08/03/2025 Office Visit Pain Medicine Patricia Sotelo PA [address] [place] [address] documented as of this encounter Procedures Procedure [...] MD LAB BLOOD ORDERABLES [facility] [address] [facility]. [place], [place] [phone] documented in this encounter Visit Diagnoses Not on filedocumented in this encounter Additional Health Concerns Infection Onset Date Last Indicated Resolved Time COVID-19 Rule Out Comment:04/29/2020 Negative (PAT) 02/20/2020 COVID19 NEGATIVE (PAT) 02/23/2020 02/23/2020 02/23/2020 10:42 AM EDT documented as of this encounter Care Teams Marketing Teacher Relationship Specialty Start Date End Date Joe Delaney MD [address] [place] [address] PCP - General Internal Medicine 11/17/18 Twan Davis MD [address] [place] [address] Referring Physician Internal Medicine 11/17/18 Wan Rodríguez [facility] [place] [address] 06/02/19 Rozina Petersen MD Gastroenterology 03/30/20 documented as of this encounter
--- OUTSIDE RECORDS SUMMARY | 2025-04-01 12:16 | XMS_ITS | Encounter Summary ---
Author Organization [facility] Address [address] [place] [address] Phone Care Team Providers Care Branch Office Administrator Name Role Phone Joe Delaney MD Primary Care Provider [phone] Twan Davis MD Unavailable [phone] Wan Rodríguez Unavailable [phone] Rozina Petersen MD Unavailable Encounter Details Date Type Department Care Team Description 03/01/2024 Email from [email or web address] Physical Medicine and Rehabilitation [address] [place] [phone] Jamison Castano MD [address] [place] [address] Social History Tobacco Use Types Packs/Day [...] Visit Internal Medicine Joe Delaney MD [address] [place] [address] 08/03/2025 Office Visit Pain Medicine Patricia Sotelo PA [address] [place] [address] documented as of this encounter Visit Diagnoses Not on filedocumented in this encounter Care Teams Branch Office Administrator Relationship Specialty Start Date End Date Joe Delaney MD [address] [place] [address] PCP - General Internal Medicine 11/17/18 Twan Davis MD [address] [place] [address] Referring Physician Internal Medicine 11/17/18 Wan Rod[facility]guez [facility] [place] [address] 06/02/19 Rozina Petersen MD Gastroenterology 03/30/20 documented as of this encounter
--- OUTSIDE RECORDS SUMMARY | 2025-04-01 12:16 | XMS_ITS | Encounter Summary ---
Author Organization [facility] Address [address] [place] [address] Phone Care Team Providers Care Laborer/Key Man Name Role Phone Joe Delaney MD Primary Care Provider Twan Davis MD Unavailable [phone] Wan Rodríguez Unavailable Rozina Petersen MD Unavailable Encounter Details Date Type Department Care Team Description 04/15/2017 Conversion Endocrinology [address] [place] [address] Jayjay Allred MD [address] [place], [place] [phone] Social History Tobacco Use Types Packs/Day Years Used Date Smoking Tobacco: Never Assessed Sex Assigned at Date Recorded Male 03/28/2020 2:09 AM E DT Job Start Date Occupation Industry Not on file Not on file Not on file documented as of this encounter Plan of Treatment Upcoming Encounters Date Type Specialty Care Team Description 05/25/2025 Office Visit Internal Medicine Joe Delaney MD [address] [place] [address] 08/03/2025 Office Visit Pain Medicine Patricia Sotelo PA [address] [place] [address] documented as of this encounter Procedures Procedure [...] PM EDT Testing performed at: [BN] [facility] [address], [address], , Wastewater Plant Civil Engineer: Carter Norton MD Jayjay Allred MD LAB BLOOD ORDERABLES [facility] * Thyroid peroxidase antibody (04/15/2017 10:17 AM EDT) Thyroid Peroxidase Ab 9 0 - 34 IU/mL [facility] 04/15/2017 10:1 7 AM EDT 04/15/2017 10:34 AM EDT Narrative [facility] - 04/16/2017 1:17 AM EDT Testing performed at: [RN] [facility], [address] [place] [address], [phone], , Wastewater Plant Civil Engineer: Lynn Dukes MD Jayjay Allred MD LAB BLOOD ORDERABLES [facility] * TSH (04/15/2017 10:17 AM EDT) TSH 1.57 0.50 - 6.00 uIU/mL [facility] 04/15/2017 10:1 7 AM EDT 04/15/2017 10:34 AM EDT Narrative [facility] - 04/15/2017 1:29 PM EDT Jayjay Allred MD LAB BLOOD ORDERABLES Performing Organization Address [facility] Co de Phone Number AP [facility] [address] [facility] [place], [place] [phone] * T4, free (04/15/2017 10:17 AM EDT) Free T4 1.04 0.75 - 1.54 ng/dL [facility] 04/15/2017 10:1 7 AM EDT 04/15/2017 10:34 AM EDT Narrative [facility] - 04/15/2017 1:29 PM EDT Jayjay Allred MD LAB BLOOD ORDERABLES Performing Organization Address [facility] Co de Phone Number AP DIAZ [address] [facility] [place], [place] [phone] documented in this encounter Visit Diagnoses Not on filedocumented in this encounter Additional Health Concerns Infection Onset Date Last Indicated Resolved Time COVID-19 Rule Out Comment:04/29/2020 Negative (PAT) 02/20/2020 COVID19 NEGATIVE (PAT) 02/23/2020 02/23/2020 02/23/2020 10:42 AM EDT documented as of this encounter Care Teams Laborer/Key Man Relationship Specialty Start Date End Date Joe Delaney MD [address] [place] [address] PCP - General Internal Medicine 11/17/18 Twan Davis MD [address] [place] [address] Referring Physician Internal Medicine 11/17/18 Wan Rodríguez [facility] [place] [address] 06/02/19 Rozina Petersen MD Gastroenterology 03/30/20 documented as of this encounter
--- OUTSIDE RECORDS SUMMARY | 2025-04-01 12:16 | XMS_ITS | Encounter Summary ---
Author Organization [facility] Address [address] [place] [address] Phone Care Team Providers Care Foundry Tender Name Role Phone Joe Delaney MD Primary Care Provider [phone] Twan Davis MD Unavailable [phone] Wan Rodríguez Unavailable [phone] Rozina Petersen MD Unavailable Encounter Details Date Type Department Care Team Description 05/10/2017 Conversion Endocrinology [address] [place] [phone] Jayjay Allred MD [address] [place] [address] Social History Tobacco Use Types Packs/Day Years [...] Endocrinology and Metabolism Jayjay Allred MD, [facility] [place] History from: patient Reason for visit: [...] is now on anticoagulation using Xarelto. The [place] Thyroid Association (EDREK) and the [place] Association of Clinical Endocrinologists (AACE) recommend ultrasound-guided [...] colonpolyp. Father is , at age 83, ID suspected. Had high PSA but not Ca. 1 brother is alive and well. 1 sister is alive and well. Social History (reviewed history from 02/19/2017 - no changes required): Marital Status: . . Number of Children: 3.. Place of : [place]. 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 Sleep History: 6-8 hrs;.Travel History: [place];. Tobacco use: never smoker. Passive smoke exposure: [...] PENICILLIN (Moderate) Problems (including changes): PALPITATIONS (ICD-785.1) (AGR51-E41.2) PRIMARY LOCALIZED OSTEOARTHRITIS OF RIGHT KNEE (ICD-715.16) (YJW74-Y31.11) KNEE PAIN, RIGHT (ICD-719.46) (FJM15-I85.561) GOITER (ICD-240.9) (KAT51-L68.9) ANEMIA, MICROCYTIC (ICD-281.9) (VHB41-E48.9) GOITER, MULTINODULAR (ICD-241.1) (AJB32-I15.2) HEMORRHOIDS (ICD-455.6) (PVV08-E87.9) KEY'S ESOPHAGUS (ICD-530.85) (DAY07-O61.70) THYROID NODULES (ICD-241.0) (UNE27-E14.1) ANXIETY (ICD-300.00) (PQX50-R70.9) ATRIAL FIBRILLATION, PAROXYSMAL (ICD-427.31) (GII81-L29.0) LUMBAGO (ICD-724.2) (GWE42-S49.5) HX OF BEE STING ALLERGY (ICD-V15.06) (ZRR92-W59.030) ESSENTIAL HYPERTENSION (ICD-401.9) (KTJ01-M03) Sx of DEGENERATIVE JOINT DISEASE, KNEE (ICD-715.96) (TTI83-I20.9) BENIGN PROSTATIC HYPERPLASIA (ICD-600.00) (FCH49-Q76.0) PSA, INCREASED (ICD-790.93) (HFD97-P68.2) SCREENING FOR UNSPECIFIED CONDITION (ICD-V82.9) (BQQ07-F57.9) SCREENING FOR LIPOID DISORDERS (ICD-V77.91) (YYO58-A82.220) GERD (ICD-530.81) (YIX81-J30.9) ProblemAssessments: Medications (including changes): LOSARTAN POTASSIUM 100 [...] they will be promptly addressed. Orders: SNOMED-CT: [id number] Patient Encounter for Meaningful Use[[id number]] CALCITONIN [124084] Plasma Free Metanephrines [595938] 27486-Iizpuivvevx Patient - Detailed with Moderate Complexity [CPT-90728] Ultrasound Head & neck-soft tissues (eg. thyroid) [USSOFTISSU] cc: Joe Delaney MD Injections Please note, this documentation has been converted into the [employer] EHR from our [employer] EMR forinformational purposes only. This documentation must not be released or used for legal purposes as the note is missing the responsible provider???s signature. A copy of the legal medical record can be obtained or printed only from the [employer] EMR. documented in this encounter Plan of Treatment Upcoming Encounters Date Type Specialty Care Team Description 05/25/2025 Office Visit Internal Medicine Joe Delaney MD [facility] [place] [address] 08/03/2025 Office Visit Pain Medicine Patricia Sotelo PA [address] [place] [address] documented as of this encounter Visit Diagnoses Not on filedocumented in this encounter Additional Health Concerns Infection Onset Date Last Indicated Resolved Time COVID-19 Rule Out Comment:04/29/2020 Negative (PAT) 02/20/2020 COVID19 NEGATIVE (PAT) 02/23/2020 02/23/2020 02/23/2020 10:42 AM EDT documented as of this encounter Care Teams Foundry Tender Relationship Specialty Start Date End Date Joe Delaney MD [address] [place], [place] [phone] PCP - General Internal Medicine 11/17/18 Twan Davis MD [address] [place] [address] Referring Physician Internal Medicine 11/17/18 Wan Rodríguez [facility] [place] [address] 06/02/19 Rozina Petersen MD Gastroenterology 03/30/20 documented as of this encounter
== END 2025-04-01 11:26 | disposition home or self-care (01) ==
LOC: HO.HNS 10:47
PROVIDERS: Visit Provider Physician Assistant
DX: M54.16 Radiculopathy, lumbar region (principal)
CPT/HCPCS: 99024

== ENCOUNTER → 2025-04-01 10:46 | Outpatient (BNVA) | payer MEDICARE, SELFPAY | PROVIDERS: Visit Provider Physician Assistant | DX: Z98.890 Other specified postprocedural states (principal); M54.16 Radiculopathy, lumbar region | CPT/HCPCS: 99212 ==